=== PATIENT | male | born 1955 | race Caucasian/White ===

== ENCOUNTER 2017-09-21 13:07 | Emergency (ER) | payer MEDICARE, SELFPAY ==
[2017-09-21 13:08] VITALS: BP 144/89; PULSE 86; RESP 20; TEMP 36.6; O2SAT 99; BMI 31.5
[2017-09-21 13:35] LABS: Microscopic, Urine URINE MICROSCOPIC (MICROSCOPIC)
[2017-09-21 13:47] LABS: Basophils # 0.1 K/mm3 (0-0.2); Basophils % 0.5 % (0.1-2.0); Eosinophils # 0.1 K/mm3 (0.0-0.4); Eosinophils % 1.2 % (0.1-12.0); Hematocrit 46.7 % (42.0-52.0); Hemoglobin 15.3 g/dL (14.1-18.0); Lymphocytes % 10.1 K/mm3 (10-50); Mean Corpuscular HGB Conc 32.7 g/dL (31.8-35.4); Mean Corpuscular Hemoglobin 31.4 pg (27.0-31.2); Mean Corpuscular Volume 95.9 fl (80-94); Mean Platelet Volume 7.7 fl (7.4-10.4); Monocytes # 0.5 K/mm3 (0.1-1.0); Monocytes % 5.5 % (1.7-9.3); Neutrophils % 82.7 % (37.0-80.0); Platelet Count 271 K/mm3 (142-424); Red Blood Count 4.87 M/mm3 (4.60-6.20); Red Cell Distribution Width 13.6 % (11.5-17.5); White Blood Count 9.7 K/mm3 (4.8-10.8)
[2017-09-21 13:49] LABS: Alanine Aminotransferase 27 U/L (12-78); Albumin Level 4.1 gm/dL (3.4-5.0); Albumin/Globulin Ratio 1.1 (1.1-1.8); Alkaline Phosphatase 78 U/L (46-116); Amylase 29 U/L (25-125); Appearance,Urine CLEAR (Clear); Aspartate Amino Transferase 9 U/L (15-37); Bilirubin,Total 0.7 mg/dL (0.2-1.0); Bilirubin,Urine Negative (Negative); Blood Urea Nitrogen 22 mg/dL (7-18); Blood, Urine Negative (Negative); Carbon Dioxide 25 mmol/L (21.0-32.0); Chloride 100 mmol/L (98-107); Color,Urine YELLOW (Yellow); Creatinine Clearance Estimated 84 mL/min (0-300); Creatinine,Serum 1.32 mg/dL (0.70-1.30); Estimated Glomerular Filt Rate 55 ml/min (>60); GFR (African American) 67 ML/MIN (>60); Globulin 3.7 gm/dl (1.3-3.2); Glucose 106 mg/dL (74-106); Glucose,Urine (UA) Negative (Negative); Ketones,Urine Negative (Negative); Leukocyte Esterase,Urine Negative (Negative); Lipase 110 u/L (73-393); Nitrate,Urine Negative (Negative); PH,Urine 6.5 (5.0-8.5); Protein,Urine Negative (Negative); Sodium 136 mmol/L (136-145); Specific Gravity, Urine 1.015 (1.005-1.030); Total Protein,Serum 7.8 gm/dL (6.4-8.2); Urobilinogen,Urine 0.2 EU/dl (0.2)
--- NOTE | 2017-09-21 13:51 | HMH.EDGENADL ---
ED Disposition Clinical Impression: Right flank pain Disposition: Home, Self-Care Condition on Discharge: Fair Instructions: DI for Flank Pain Additional Instructions: See Jorge Michel or Dr. Gonzalez in the office tomorrow. Get your pain medication prescriptions filled tomorrow. additional instructions for BACK PAIN: See your physician as soon as possible for further evaluation. Return immediately if back pain becomes intolerable, or if fever, numbness or weakness of your legs, loss of control of your bowels or bladder. Additional instructions for ABDOMINAL PAIN: See your physician as soon as possible for further evaluation. Return immediately if worsening abdominal pain, vomiting, shortness of breath, fever, vomiting of blood or abdominal distention. Additional instructions for CONTROLLED SUBSTANCES: You have been prescribed a medication that is a controlled substance. Controlled substances include pain medications known as opiates and sedative nerve medications known as benzodiazepines. Some common opiates include: Codeine (such as Tylenol #3) Hydrocodone (Vicodin, Lortab, Lorcet, [place]) Oxycodone (Percocet, Percodan, Oxycodone, Oxy IR) Some common benzodiazepines include: Diazepam (Valium) Lorazepam (Ativan) Alprazolam (Xanax) Clonazepam (Klonopin) Oxazepam (Serax) All of these controlled substances are highly addictive and frequently abused. Misuse can and frequently does lead to addiction as well as overdose and . Medication should be stored in a locked cabinet or other secure storage unit. Do not store the medication in a motor vehicle. Short term supplies, 3 days or less, are prescribed because of the highly addictive nature of the medication. Any of the controlled substance medication NOT taken should be disposed of properly and NOT SAVED. The recommended method of disposing of unused medications is: Place the medicines in a sealable plastic bag. If the medicine is a solid, crush it or add water to dissolve it. Add something undesirable (cat litter, coffee grounds, etc.) Dispose of sealed bag in household trash Do not flush or pour unused medicines down a sink or drain. Controlled substances should not be shared, given away or sold. Because of the addictive nature and frequent abuse, these medications are sometimes stolen. These medications should be kept in a safe place where they cannot be stolen. Do not keep them in your car or purse. Lost or stolen prescriptions for controlled substances WILL NOT BE REFILLED in this emergency department, regardless of whether a police report was filed. Prescriptions: Oxycodone HCl/Acetaminophen [Percocet 5/325mg tablet] 1 tab PO Q6HP PRN #8 tab PRN Reason: Severe Pain Referrals: John Gonzalez MD [Primary Care Provider] - - Critical Care Critical Care Time: No Attestation: On 09/21/17, the high probability of a clinically significant, sudden or life threatening deterioration of the following system(s) required my full and direct attention, intervention and personal management. The time I documented below is in addition to time spent performing reported procedures but includes the following listed in this critical care notation. Medical Decision Making Vital Signs: 09/21/17 13:08 Temperature 97.9 F Temperature Source Oral Pulse Rate [Right Brachial] 86 Respiratory Rate 20 Blood Pressure [Right Radial Artery] 144/89 Blood Pressure Mean [Right Radial Artery] 107 Blood Pressure Source [Right Radial Artery] Automatic Cuff Blood Pressure Position [Right Radial Artery] Supine 02 Sat by Pulse Oximetry 99 Oxygen Delivery Method Room Air - Lab Data Lab Results 09/21/17 13:28: Urine Color Yellow, Urine Appearance Clear, Urine pH 6.5, Ur Specific [place] 1.015, Urine Protein Negative, Urine Glucose (UA) Negative, Urine Ketones Negative, Urine Blood Negative, Urine Nitrate Negative, Urine Bilirubin Negative, Urine Urobil
[2017-09-21 14:04] LABS: Bacteria,Urine Trace /lpf; WBC,Urine Occasional #/hpf (0-3)
--- NOTE | 2017-09-21 14:44 | CT_ITS ---
CT abdomen pelvis wo con CLINICAL INDICATION: Right lower quadrant pain and right flank pain ITS.REASON: R flank pain, r/o stone ORDERING PHYSICIAN: Kyle Faith MD PATIENT AGE: 62 years COMPARISON: January 07, 2017 TECHNIQUE: Axial images obtained with sagittal and coronal reformats. PROCEDURE: Oral Contrast: None IV Contrast: None . FINDINGS: Lung bases are clear. Liver, gallbladder, pancreas, and adrenal glands have an unremarkable unenhanced CT appearance. There is a 8.9 x 7 cm left renal cyst projecting off the anterior aspect of the left kidney. No obstructing renal or ureteral calculi. Unremarkable appendix. There is diverticulosis of the sigmoid colon with no evidence of diverticulitis. Nondistended fluid-filled loops of small bowel are present in the upper abdomen. There is a small umbilical hernia containing fat No acute bony anomalies. IMPRESSION: 1. No renal or ureteral calculi. Unremarkable appendix. 2. Diverticulosis without diverticulitis. 3. Multiple fluid-filled loops of small bowel are present which are not significantly distended and could be due to mild enteritis. 4. Other nonacute findings as described above
[2017-09-21 17:11] VITALS: BP 125/96; PULSE 89; RESP 18; TEMP 36.7; O2SAT 98
[2017-09-21 20:52] LABS: Amphetamine/Metha Screen,Urine Negative ng/mL (<1000); Barbiturates Screen,Urine Negative ng/mL (<200); Benzodiazepines Screen,Urine Positive ng/mL (200); Cannabinoid Screen,Urine Negative ng/mL (<50); Cocaine Screen,Urine Negative ng/g (<300); Methadone Screen,Urine Negative ng/mL (<300); Opiate Screen,Urine Positive ng/mL (<300); Phencyclidine Screen,Urine Negative ng/mL (<25)
== END 2017-09-21 17:11 | disposition home or self-care (01) ==
PROVIDERS: Emergency Provider Emergency Medicine; PCP Emergency Medicine
DX: R10.11 Right upper quadrant pain (principal); R10.31 Right lower quadrant pain; K57.51 Diverticulosis of both small and large intestine without perforation or abscess with bleeding; I10 Essential (primary) hypertension; F17.210 Nicotine dependence, cigarettes, uncomplicated; Z88.0 Allergy status to penicillin
CPT/HCPCS: 74176; 80053; 80305; 81001; 82150; 83690; 85025; 96374; 96375; 96376; 99283; J2405

== ENCOUNTER → 2017-10-14 09:54 | Outpatient (CLI) | payer MEDICARE, SELFPAY ==
--- NOTE | 2017-10-14 09:57 | CA_ITS ---
PROCEDURE: 2-D M-mode and color Doppler study INDICATIONS FOR THE TEST: Chest pain COPD Heart Murmur Tobacco Smoking+ Palpitations Fatigue Syncope Edema+ Hypertension+Diabetes Mellitus Rheumatic Fever SOB SANTO Obesity Hyperlipidemia+ Family History HD Additional History HX OF THYROID CA WITH CHEMO AND RADATION PATIENT INFORMATION HEIGHT: 70 WEIGHT:216 GENDER: Male B/P:132/82 2-D/M-MODE INTERPRETATION: 2-D MEASUREMENTS OBSERVED VALUES IN CMS Right Ventricular Dimension (RVDd) 2.6 Interventricular Septum (Thickness)(IVsd) 1.3 Left Ventricular Internal Dimensions(LVIDd) 4.2 Left Ventricular Posterior Wall (Thickness)(LVPWd) 1.1 Aortic Root 4.0 Aortic Cusp Separation 2.3 Left Atrial Dimensions (LAD) 3.4 2D 1. Left atrium is qualitatively mildly enlarged, left ventricle is normal size, there is mild concentric left ventricular hypertrophy, visually estimated ejection fraction 55% with no obvious regional wall motion abnormality. 2. The right atrium and ventricle are normal size and contractility. 3. The aortic valve is minimally thickened and fibrosed. 4. The mitral and tricuspid valve are grossly normal. 5. The pulmonic valve is poorly visualized. 6. No significant pericardial effusion noted DOPPLER INTERROGATION: Doppler interrogation of the aortic, mitral and tricuspid valvular presence of mild mitral and tricuspid regurgitation, tricuspid and enteric velocity insufficient for acquisition of the right ventricular systolic pressure, grade 1 diastolic dysfunction seen without tissue Doppler evidence of raised left atrial pressure. CONCLUSION: 1. Qualitatively mildly enlarged left atrium, normal left ventricular size, mild concentric left ventricular hypertrophy, visually estimated ejection fraction 55% with no obvious regional wall motion abnormality, grade 1 diastolic dysfunction seen without tissue Doppler evidence of raised left atrial pressure. 2. Mild mitral and tricuspid regurgitation 3. No significant pericardial effusion noted.
== END ==
PROVIDERS: PCP Emergency Medicine; Visit Provider Emergency Medicine
DX: R01.1 Cardiac murmur, unspecified (principal); R07.9 Chest pain, unspecified
CPT/HCPCS: 93306

== ENCOUNTER → 2017-10-31 10:55 | Outpatient (CLI) | payer MEDICARE, SELFPAY | PROVIDERS: PCP Emergency Medicine; Visit Provider Physical Medicine & Rehabilitation | DX: M47.812 Spondylosis without myelopathy or radiculopathy, cervical region (principal); M47.816 Spondylosis without myelopathy or radiculopathy, lumbar region ==

== ENCOUNTER → 2017-11-07 11:03 | Outpatient (POV) | payer MEDICARE, SELFPAY ==
--- NOTE | 2017-11-07 12:18 | XR_ITS ---
EXAM: XR lumbar spine 6V w bending HISTORY: Low back pain ITS.REASON: SPONDYLOSIS OF LUMBAR ORDERING PHYSICIAN: Farheen Humphries MD PATIENT AGE: 62 years FINDINGS: There is normal alignment. There is degenerative disc disease at T11-L3. Anterior osteophytes are present in the lower thoracic and mid and upper lumbar spine. No fracture or dislocation. No lytic or blastic change. Facet arthritic changes are present at L4-L5 and L5-S1. There is sclerosis of the upper aspect of the SI joints bilaterally. Flexion and extension views show no abnormal subluxation. IMPRESSION: 1. Multilevel lumbar spondylosis with degenerative disc disease and facet arthritic change as described above. 2. No abnormal subluxation in flexion or extension. 3. No fracture or dislocation
--- NOTE | 2017-11-07 12:18 | XR_ITS ---
XR cervical spine w flex/ext CLINICAL INDICATION: Neck pain ITS.REASON: CERVICAL SPONDYLOSIS ORDERING PHYSICIAN: Farheen Humphries MD PATIENT AGE: 62 years FINDINGS: Normal alignment. No fracture or dislocation. There is slight decrease in the disc space at C5-C6 and C6-C7. The neural foramina are patent. No evidence of cervical rib or significant degenerative change. Flexion and extension views are obtained with no significant subluxation in flexion or extension. No prevertebral soft tissue swelling. Multiple surgical clips are present about the neck. IMPRESSION: Minimal degenerative disc disease C5-C6 and C6-C7. No abnormal subluxation in flexion or extension
== END ==
PROVIDERS: PCP Emergency Medicine; Visit Provider Specialist
DX: G56.03 Carpal tunnel syndrome, bilateral upper limbs (principal)
CPT/HCPCS: 72052; 72114; 95886; 95910

== ENCOUNTER → 2017-11-29 10:36 | Outpatient (REF) | payer MEDICARE, SELFPAY ==
[2017-11-29 13:35] LABS: Alanine Aminotransferase 16 U/L (12-78); Albumin Level 4.3 gm/dL (3.4-5.0); Albumin/Globulin Ratio 1.6 (1.1-1.8); Alkaline Phosphatase 67 U/L (46-116); Anion Gap 8.7 mEq/L (5-15); Aspartate Amino Transferase 17 U/L (15-37); Bilirubin,Total 0.5 mg/dL (0.2-1.0); Blood Urea Nitrogen 21 mg/dL (7-18); C-Reactive Protein 1.5 mg/L (0.0-0.9); Calcium 9.4 mg/dL (8.5-10.1); Carbon Dioxide 33 mmol/L (21.0-32.0); Chloride 101 mmol/L (98-107); Creatinine,Serum 1.41 mg/dL (0.70-1.30); Estimated Glomerular Filt Rate 51 ml/min (>60); GFR (African American) 62 ML/MIN (>60); Globulin 2.7 gm/dl (1.3-3.2); Glucose 116 mg/dL (74-106); Potassium 4.7 mmoL/L (3.5-5.1); Sodium 138 mmol/L (136-145)
[2017-11-29 14:51] LABS: Erythrocyte Sedimentation Rate 31 mm/hr (0-20)
[2017-11-29 14:53] LABS: Basophils % 0.8 % (0.1-2.0); Eosinophils # 0.2 K/mm3 (0.0-0.4); Eosinophils % 4.1 % (0.1-12.0); Hematocrit 39.4 % (42.0-52.0); Hemoglobin 12.8 g/dL (14.1-18.0); Lymphocytes # 0.9 K/mm3 (0.7-4.5); Lymphocytes % 18.9 K/mm3 (10-50); Mean Corpuscular HGB Conc 32.6 g/dL (31.8-35.4); Mean Platelet Volume 8.9 fl (7.4-10.4); Monocytes # 0.3 K/mm3 (0.1-1.0); Monocytes % 5.9 % (1.7-9.3); Neutrophils # 3.2 K/mm3 (1.8-7.8); Neutrophils % 70.3 % (37.0-80.0); Platelet Count 158 K/mm3 (142-424); Red Blood Count 4.14 M/mm3 (4.60-6.20); Red Cell Distribution Width 13.3 % (11.5-17.5); White Blood Count 4.5 K/mm3 (4.8-10.8)
== END ==
LOC: LAB 10:36
PROVIDERS: Visit Provider Emergency Medicine
DX: Z79.899 Other long term (current) drug therapy (principal); I10 Essential (primary) hypertension; R10.9 Unspecified abdominal pain; R39.198 Other difficulties with micturition
CPT/HCPCS: 80053; 85025; 85651; 86140

== ENCOUNTER → 2018-04-04 15:44 | Outpatient (REF) | payer MEDICARE, SELFPAY ==
[2018-04-04 17:48] LABS: Basophils # 0.1 K/mm3 (0-0.2); Basophils % 0.9 % (0.1-2.0); Eosinophils # 0.1 K/mm3 (0.0-0.4); Eosinophils % 0.8 % (0.1-12.0); Hematocrit 44.8 % (42.0-52.0); Hemoglobin 14.7 g/dL (14.1-18.0); Lymphocytes % 19.5 K/mm3 (10-50); Mean Corpuscular HGB Conc 32.8 g/dL (31.8-35.4); Mean Corpuscular Hemoglobin 31.5 pg (27.0-31.2); Monocytes # 0.4 K/mm3 (0.1-1.0); Monocytes % 6.6 % (1.7-9.3); Neutrophils # 3.9 K/mm3 (1.8-7.8); Neutrophils % 72.2 % (37.0-80.0); Platelet Count 231 K/mm3 (142-424); Red Blood Count 4.66 M/mm3 (4.60-6.20); Red Cell Distribution Width 14.3 % (11.5-17.5); White Blood Count 5.4 K/mm3 (4.8-10.8)
[2018-04-04 19:03] LABS: Alanine Aminotransferase 19 U/L (12-78); Albumin Level 4.3 gm/dL (3.4-5.0); Albumin/Globulin Ratio 1.3 (1.1-1.8); Alkaline Phosphatase 83 U/L (46-116); Anion Gap 14.7 mEq/L (5-15); Bilirubin,Total 0.6 mg/dL (0.2-1.0); Blood Urea Nitrogen 21 mg/dL (7-18); Calcium 9.3 mg/dL (8.5-10.1); Carbon Dioxide 26 mmol/L (21.0-32.0); Chloride 106 mmol/L (98-107); Creatinine,Serum 1.02 mg/dL (0.70-1.30); Estimated Glomerular Filt Rate 74 ml/min (>60); Free T4 (Free Thyroxine) 0.93 ng/dl (0.76-1.46); GFR (African American) 90 ML/MIN (>60); Globulin 3.2 gm/dl (1.3-3.2); Glucose 99 mg/dL (74-106); Potassium 4.7 mmoL/L (3.5-5.1); Sodium 142 mmol/L (136-145); Thyroid Stimulating Hormone 3.63 uIU/ml (0.358-3.740); Total Protein,Serum 7.5 gm/dL (6.4-8.2)
[2018-04-04 19:04] LABS: Aspartate Amino Transferase 13 U/L (15-37)
[2018-04-04 19:08] LABS: Amphetamine/Metha Screen,Urine Negative ng/mL (<1000); Barbiturates Screen,Urine Negative ng/mL (<200); Benzodiazepines Screen,Urine Negative ng/mL (<200); Cannabinoid Screen,Urine Negative ng/mL (<50); Cocaine Screen,Urine Negative ng/mL (<300); Methadone Screen,Urine Negative ng/mL (<300); Opiate Screen,Urine Negative ng/mL (<300); Phencyclidine Screen,Urine Negative ng/mL (<25)
[2018-04-04 20:32] LABS: Chol/HDL Ratio 3.7 (1-3.5); Cholesterol 183 mg/dL (140-200); HDL Cholesterol 50 mg/dL (27-67); LDL Cholesterol 115 mg/dL (0-130); Triglycerides 90 mg/dL (30-200); VLDL Cholesterol 18 mg/dL (0-40)
== END ==
LOC: LAB 15:44
PROVIDERS: PCP Emergency Medicine; Visit Provider Emergency Medicine
DX: I10 Essential (primary) hypertension (principal); Z79.899 Other long term (current) drug therapy; E03.9 Hypothyroidism, unspecified; F17.210 Nicotine dependence, cigarettes, uncomplicated
CPT/HCPCS: 80053; 80061; 80305; 84439; 84443; 85025

== ENCOUNTER → 2019-02-06 17:29 | Outpatient (CLI) | payer MEDICARE, SELFPAY ==
[2019-02-06 18:46] LABS: Basophils # 0.1 K/mm3 (0-0.2); Basophils % 0.8 % (0.1-2.0); Eosinophils # 0.1 K/mm3 (0.0-0.4); Eosinophils % 1.9 % (0.1-12.0); Hematocrit 45.2 % (42.0-52.0); Hemoglobin 14.9 g/dL (14.1-18.0); Lymphocytes # 1.4 K/mm3 (0.7-4.5); Mean Corpuscular HGB Conc 32.9 g/dL (31.8-35.4); Mean Corpuscular Hemoglobin 30.8 pg (27.0-31.2); Mean Corpuscular Volume 93.5 fl (80-94); Mean Platelet Volume 8.3 fl (7.4-10.4); Monocytes # 0.4 K/mm3 (0.1-1.0); Monocytes % 6.3 % (1.7-9.3); Neutrophils # 4.6 K/mm3 (1.8-7.8); Platelet Count 227 K/mm3 (142-424); Red Blood Count 4.84 M/mm3 (4.60-6.20); Red Cell Distribution Width 14.3 % (11.5-17.5); White Blood Count 6.5 K/mm3 (4.8-10.8)
[2019-02-06 19:09] LABS: Alanine Aminotransferase 19 U/L (12-78); Albumin Level 4.4 gm/dL (3.4-5.0); Albumin/Globulin Ratio 1.3 (1.1-1.8); Alkaline Phosphatase 74 U/L (46-116); Anion Gap 15.2 mEq/L (5-15); Aspartate Amino Transferase 7 U/L (15-37); Bilirubin,Total 0.4 mg/dL (0.2-1.0); Blood Urea Nitrogen 27 mg/dL (7-18); Carbon Dioxide 26 mmol/L (21.0-32.0); Chloride 101 mmol/L (98-107); Chol/HDL Ratio 5.1 (1-3.5); Cholesterol 224 mg/dL (140-200); Creatinine,Serum 1.48 mg/dL (0.70-1.30); Estimated Glomerular Filt Rate 48 ml/min (>60); GFR (African American) 58 ML/MIN (>60); Globulin 3.4 gm/dl (1.3-3.2); Glucose 104 mg/dL (74-106); HDL Cholesterol 44 mg/dL (27-67); LDL Cholesterol 145 mg/dL (0-130); Potassium 4.2 mmoL/L (3.5-5.1); Sodium 138 mmol/L (136-145); T4 (Thyroxine) 4.4 ug/dl (4.7-13.3); Total Protein,Serum 7.8 gm/dL (6.4-8.2); Triglycerides 177 mg/dL (30-200); VLDL Cholesterol 35 mg/dL (0-40)
== END ==
PROVIDERS: Visit Provider Emergency Medicine
DX: I10 Essential (primary) hypertension (principal)
CPT/HCPCS: 80053; 80061; 84436; 84443; 85025

== ENCOUNTER 2019-02-06 19:44 | Observation (INO) ==
[2019-02-06 20:10] LABS: Basophils # 0.1 K/mm3 (0-0.2); Basophils % 0.7 % (0.1-2.0); Eosinophils # 0.1 K/mm3 (0.0-0.4); Eosinophils % 1.6 % (0.1-12.0); Hematocrit 43.9 % (42.0-52.0); Hemoglobin 14.1 g/dL (14.1-18.0); Lymphocytes # 1.2 K/mm3 (0.7-4.5); Lymphocytes % 19.4 % (10-50); Mean Corpuscular HGB Conc 32.1 g/dL (31.8-35.4); Mean Platelet Volume 7.9 fl (7.4-10.4); Monocytes # 0.3 K/mm3 (0.1-1.0); Monocytes % 5.2 % (1.7-9.3); Neutrophils # 4.5 K/mm3 (1.8-7.8); Neutrophils % 73.2 % (37.0-80.0); Platelet Count 215 K/mm3 (142-424); Red Blood Count 4.67 M/mm3 (4.60-6.20); Red Cell Distribution Width 14.2 % (11.5-17.5); White Blood Count 6.2 K/mm3 (4.8-10.8)
[2019-02-06 20:20] LABS: Anion Gap 12.6 mEq/L (5-15); Blood Urea Nitrogen 26 mg/dL (7-18); Calcium 9.4 mg/dL (8.5-10.1); Carbon Dioxide 28 mmol/L (21.0-32.0); Chloride 101 mmol/L (98-107); Glucose 108 mg/dL (74-106); Sodium 138 mmol/L (136-145)
[2019-02-06 20:21] LABS: Microscopic, Urine URINE MICROSCOPIC (MICROSCOPIC)
[2019-02-06 20:25] LABS: Appearance,Urine CLEAR (Clear); Bilirubin,Urine Negative (Negative); Blood, Urine Negative (Negative); Color,Urine YELLOW (Yellow); Glucose,Urine (UA) Negative (Negative); Ketones,Urine Negative (Negative); Leukocyte Esterase,Urine Negative (Negative); PH,Urine 6.5 (5.0-8.5); Protein,Urine Negative (Negative); Urobilinogen,Urine 0.2 EU/dl (0.2)
--- NOTE | 2019-02-06 20:31 | Emergency Department Note ---
ED Disposition Clinical Impression: Renal insufficiency, RBBB (right bundle branch block with left anterior fascicular block), Tobacco use, Obesity (BMI 30.0-34.9), Squamous cell carcinoma Chest pain Qualifiers: Chest pain type: precordial pain Qualified Code(s): R07.2 - Precordial pain Hypertension Qualifiers: Hypertension type: essential hypertension Qualified Code(s): I10 - Essential ( primary) hypertension Hypothyroidism Qualifiers: Hypothyroidism type: acquired Qualified Code(s): E03.9 - Hypothyroidism, u nspecified Disposition: Admitted as Observation Condition on Discharge: Good Referrals: John Gonzalez MD [Primary Care Provider] - - Critical Care Critical Care Time: No Attestation: On 02/06/19, the high probability of a clinically significant, sudden or life threatening deterioration of the following system(s) required my full and direct attention, intervention and personal management. The time I documented below is in addition to time spent performing reported procedures but includes the following listed in this critical care notation. Medical Decision Making - Medical Records Medical records reviewed: Yes: I reviewed the patient's medical records. - [place] Inquiry Pt receiving controlled substance: No Vital Signs: 02/06/19 19:49 02/06/19 19:50 02/06/19 20:04 Temperature 97.9 F 97.9 F Temperature Source Oral Oral Pulse Rate [Right Radial] 63 63 65 Respiratory Rate 18 18 18 Blood Pressure [Right Arm] 138/77 138/77 129/64 Blood Pressure Mean [Right Arm] 97 97 85 Blood Pressure Source [Right Arm] Automatic Cuff Blood Pressure Position [Right Arm] Supine 02 Sat by Pulse Oximetry 97 97 97 Oxygen Delivery Method Room Air - Lab Data Lab results reviewed: Yes: I reviewed the patient's lab results. Lab Results 02/06/19 19:40: WBC 6.2, RBC 4.67, Hgb 14.1, Hct 43.9, MCV 94.0, MCH 30.2, MCHC 32.1, RDW 14.2, Plt Count 215, MPV 7.9, Neut % (Auto) 73.2, Lymph % (Auto) 19.4, [place] % (Auto) 5.2, Eos % (Auto) 1.6, Baso % (Auto) 0.7, Neut # (Auto) 4.5, Lymph # (Auto) 1.2, [place] # (Auto) 0.3, Eos # (Auto) 0.1, Baso # (Auto) 0.1 02/06/19 19:40: Sodium 138, Potassium 3.6, Chloride 101, Carbon Dioxide 28, Anion Gap 12.6, BUN 26 H, Creatinine 1.49 H, Estimated Creat Clear 73, Estimated GFR 48 L, Est GFR ( Amer) 58 L, Glucose 108 H, Calcium 9.4, Troponin I < 0.02 02/06/19 20:15: Urine Color Yellow, Urine Appearance Clear, Urine pH 6.5, Ur Specific [place] 1.010, Urine Protein Negative, Urine Glucose (UA) Negative, Urine Ketones Negative, Urine Blood Negative, Urine Nitrate Negative, Urine Bilirubin Negative, Urine Urobilinogen 0.2, Ur Leukocyte Esterase Negative, Urine WBC Occasional, Urine Bacteria Trace Result diagrams: 02/06/19 19:40 02/06/19 19:40 Orders (Tests/Meds): ED MEDICATIONS Discontinued Medications Generic Name Dose Route Start Last Admin Trade Name Ale PRN Reason Stop Dose Admin Aspirin 324 mg 02/06/19 19:55 02/06/19 20:02 Aspirin 81mg Chewable Tablet PO 02/06/19 19:56 324 mg ONCE ONE Administration Nitroglycerin 0.4 mg 02/06/19 19:54 02/06/19 20:01 Nitrostat 0.4mg Sl Tablet SL 02/06/19 19:55 0.4 mg ONCE ONE Administration Nitroglycerin 1 gm 02/06/19 20:43 02/06/19 20:44 Nitroglycerin 1 Inch Oint Udp TD 02/06/19 20:44 1 gm ONCE ONE Administration Ondansetron HCl 4 mg 02/06/19 20:10 02/06/19 20:16 Zofran 4mg/2ml Vial IV 02/06/19 20:11 4 mg ONCE ONE Administration ORDERS Category Date Time Status XR chest 2V Stat Exams 02/06/19 19:54 Taken - Radiology Data #1 Image(s): Chest Image Reviewed: Yes I reviewed the patient's radiology image Preliminary Findings: Normal/NAD - ECG Data Tracing #1 Normal Sinus Rhythm: Yes Ischemic changes: non-specific ST-T wave changes Conduction abnormalities present: RBBB Chest Pain HPI - General Chief Complaint: Chest Pain Stated Complaint: chest pain Time Seen by Provider: 02/06/19 20:00 Mode of Arrival: Ambulatory Source of Information: Patient, Significant Other, Medical Record Limitations: No Limitations Description of Symptoms (Recalled from ER Triage Doc. by RN): pt states he seen his doctor today and his bp was high. pt states that they gave him his meds and he took his lisinopril and he then started feeling bad. pt states that he began having chest pains and that is "shoots" into his arms. - History of Present Illness HPI narrative: pt with acute onset of ant chest pain which was felt as pressure with rad to upper ext and felt confused - has hx of tob and htn MD complaint: chest pain indicative of cardiac Onset (ago): hour(s) Duration: now resolved Activity at onset: during rest Pain location: left chest Severity: moderate Quality: heaviness Pain radiation: RUE, LUE Associated symptoms: nausea Risk Factors for CAD: Hypertension, Family Hx of CAD, Smoking Treatments prior to or on arrival for Cardiac Chest Pain: none - NITA Score for Non-Stemi Age of Patient: 60-69 years old Heart Rate: 50-69 bpm Systolic Blood Pressure: 120-139 mmhg Serum Creatinine: 1.20-1.59 mg/dl CHF [place] Class: I-No CHF Other Risk Factors: None Non-Stemi Risk Score: 105 - Related Data Home Medications Medication Instructions Recorded Confirmed Gabapentin [Gabapentin 400mg Cap] 400 mg PO TID 02/06/19 02/06/19 Previous Rx's Medication Instructions Recorded levothyroxine 50 mcg capsule 50 mcg PO DAILY #90 cap 02/06/19 lisinopril 10 mg tablet 10 mg PO DAILY #90 tab 02/06/19 Allergies Allergy/AdvReac Type Severity Reaction Status Date / Time Penicillins [PENICILLINS] Allergy Unknown Verified 02/06/19 14:55 [facility] History - Hepatitis A Screen Drug use history?: No High risk sexual behaviors?: No History of sexually transmitted infection?: No Currently employed?: No Childcare worker?: No Do you have indoor plumbing?: No Do you have electricity?: Yes Attestation statement:: This patient has been screened for Hepatitis A risk factors. I have reviewed the patient's past medical history: Yes Medical History: Reports:: Cancer, Hyperlipidemia, Hypertension Denies:: Diabetes Mellitus Type 1, Diabetes Mellitus Type 2, MRSA, Renal Disease Other Medical History: Reports: Hypothyroidism Other Surgeries: Yes: Cancer Surgery, Colonoscopy Amputation: No Fractures: No - Social History Smoking Status: Current every day smoker Tobacco Type: cigarettes # Packs/Day (cigarettes): 1 Alcohol Intake: never Substance Use Type: denies use Occupational Status: disabled Housing: house Household Members: friend(s) Family Hx:: Cancer, Coronary Artery Disease ROS Obtained: Yes All systems reviewed & no additional complaints - Constitutional Constitutional: Denies fever(s) - Eyes Eyes: Denies change in vision - ENT Ears, Nose, Mouth, and Throat: Denies sore throat - Cardiovascular Cardiovascular: Reports chest pain, Denies dyspnea - Respiratory Respiratory: No cough - Gastrointestinal Gastrointestingal: Denies: abdominal pain - Genitourinary Male Genitourinary: Denies flank pain - Musculoskeletal Musculoskeletal: Denies joint pain, Denies joint swelling - Integumentary/Breasts Skin/Breast: Denies rash - Neurologic Neurologic: Denies seizure-like activity Physical Exam - General General appearance: alert, in no apparent distress - Head Head exam: normocephalic - Eye Eye exam: Present: PERRL, EOMI. Absent: scleral icterus - ENT ENT exam: Present: mucous membranes dry - Neck Neck exam: Present: trachea midline - Respiratory Respiratory exam: Present: normal lung sounds bilaterally. Absent: respiratory distress - Cardiovascular Cardiovascular exam: Present: regular rate, systolic murmur, +S4 - Abdominal Exam Abdominal exam: Present: soft - Extremities Exam Extremities exam: Absent: calf tenderness - Neurological Exam Neurological exam: Present: alert, oriented X3, CN II-XII intact - Psychiatric Psychiatric exam: Present: normal affect - Skin Skin exam: Absent: rash
[2019-02-06 20:34] LABS: Bacteria,Urine Trace /lpf; WBC,Urine Occasional #/hpf (0-3)
--- NOTE | 2019-02-06 22:48 | History & Physical Report ---
*Admission Date: 02/06/19 *Chief complaint: chest pain *History of present illness: this wm presented to the ed with acute onset ot ant chest pain described as pressure which started at rest with rad to bilat upper ext - has tob use and htn - pt reports pain is new - pt was seen in the ed and admitted for cardiac eval [facility] History I have reviewed the patient's past medical history: Yes Medical History: Reports:: Cancer, Hyperlipidemia, Hypertension Denies:: Diabetes Mellitus Type 1, Diabetes Mellitus Type 2, MRSA, Renal Disease *Have you ever received a pneumonia vaccine?: No *Have you received a flu vaccine this season?: Yes Other Medical History: Reports: Hypothyroidism Laterality Cases: Right: Arthroscopy Shoulder, Bilateral: Arthroscopy Knee Other Surgeries: Yes: Cancer Surgery, Colonoscopy Amputation: No Fractures: No - *Social History Educational Level: Attended College Smoking Status: Current every day smoker Tobacco Type: cigarettes # Packs/Day (cigarettes): 1 Alcohol Intake: never Substance Use Type: denies use *Occupational Status:: disabled Housing: house Household Members: significant other *Travel in the last 8 weeks: None - Psychiatric History Expresses thoughts of harming self/others: None Suicide Plan Description: No Plan Family Hx:: Cancer Review of Systems - Review of Systems Review of systems:: pertinent systems reviewed and negative unless documented below - Constitutional Denies fever(s) - Eyes Denies change in vision - ENT Denies dizziness - *Cardiovascular Reports chest pain at rest - *Respiratory Denies cough - *Gastrointestinal Denies abdominal pain, Denies coffee ground vomit - *Musculoskeletal Denies joint pain - Integumentary/Breasts Denies rash - *Neurologic Denies confusion, Denies seizure-like activity - Psychiatric Denies anxiety Meds Home Medications Medication Instructions Recorded Confirmed Type Gabapentin [Gabapentin 400mg Cap] 400 mg PO TID 02/06/19 02/06/19 History levothyroxine 50 mcg capsule 50 mcg PO DAILY #90 cap 02/06/19 02/06/19 Rx lisinopril 10 mg tablet 10 mg PO DAILY #90 tab 02/06/19 02/06/19 Rx Allergies Allergy/AdvReac Type Severity Reaction Status Date / Time Penicillins [PENICILLINS] Allergy Unknown Verified 02/06/19 14:55 Exam Vital signs and Labs for Last 24 Hours: Temp Pulse Resp BP Pulse Ox 98.7 F 58 L 22 136/67 98 07/23/19 21:33 02/06/19 21:33 02/06/19 21:33 02/06/19 21:33 02/06/19 21:33 Laboratory Results - last 24 hr 02/06/19 19:40: WBC 6.2, RBC 4.67, Hgb 14.1, Hct 43.9, MCV 94.0, MCH 30.2, MCHC 32.1, RDW 14.2, Plt Count 215, MPV 7.9, Neut % (Auto) 73.2, Lymph % (Auto) 19.4, [place] % (Auto) 5.2, Eos % (Auto) 1.6, Baso % (Auto) 0.7, Neut # (Auto) 4.5, Lymph # (Auto) 1.2, [place] # (Auto) 0.3, Eos # (Auto) 0.1, Baso # (Auto) 0.1 02/06/19 19:40: Sodium 138, Potassium 3.6, Chloride 101, Carbon Dioxide 28, Anion Gap 12.6, BUN 26 H, Creatinine 1.49 H, Estimated Creat Clear 73, Estimated GFR 48 L, Est GFR ( Amer) 58 L, Glucose 108 H, Calcium 9.4, Troponin I < 0.02 02/06/19 20:15: Urine Color Yellow, Urine Appearance Clear, Urine pH 6.5, Ur Specific [place] 1.010, Urine Protein Negative, Urine Glucose (UA) Negative, Urine Ketones Negative, Urine Blood Negative, Urine Nitrate Negative, Urine Bilirubin Negative, Urine Urobilinogen 0.2, Ur Leukocyte Esterase Negative, Urine WBC Occasional, Urine Bacteria Trace I & O for Last 24 hours: Intake & Output 02/04/19 02/05/19 02/06/19 02/07/19 11:59 11:59 11:59 11:59 Weight 225 lb 5 oz - Constitutional no acute distress, obese - *Routine HEENT Exam Head: Present: normocephalic Eye: Present: EOMI, PERRL ENT: Present: mucous membranes dry - *Routine Neck Exam Absent: JVD - *Routine Respiratory Exam Present: CTA bilaterally - *Routine Cardiovascular Exam Present: RRR, murmur - *Routine Abdominal Exam Present: soft. Absent: tenderness - *Routine Extremities Exam Present: pulses intact - *Routine Skin Exam Present: intact - *Routine Neurological Exam Present: alert, oriented X3, CN II-XII intact - Routine Psychiatric Exam Present: normal affect Assessment and Plan (1) Chest pain Current visit: Yes Status: Acute Qualifiers: Chest pain type: precordial pain Qualified Code(s): R07.2 - Precordial pain Category: Medical Code(s): R07.9 - Chest pain, unspecified (2) RBBB (right bundle branch block with left anterior fascicular block) Current visit: Yes Status: Acute Category: Medical Code(s): I45.2 - Bifascicular block (3) Tobacco use Current visit: Yes Status: Acute Category: Medical Code(s): Z72.0 - Tobacco use (4) Obesity (BMI 30.0-34.9) Current visit: Yes Status: Acute Category: Medical Code(s): E66.9 - Obesity, unspecified (5) Squamous cell carcinoma Current visit: Yes Status: Acute Category: Medical (6) Hypothyroid Current visit: Yes Status: Acute Qualifiers: Hypothyroidism type: acquired Qualified Code(s): E03.9 - Hypothyroidism, unspecified Category: Medical Code(s): E03.9 - Hypothyroidism, unspecified (7) Hypertension Current visit: Yes Status: Acute Qualifiers: Hypertension type: essential hypertension Qualified Code(s): I10 - Essential (primary) hypertension Category: Medical Code(s): I10 - Essential (primary) hypertension
[2019-02-07 07:12] LABS: Basophils % 0.7 % (0.1-2.0); Eosinophils # 0.1 K/mm3 (0.0-0.4); Hematocrit 41.3 % (42.0-52.0); Hemoglobin 13.4 g/dL (14.1-18.0); Lymphocytes # 1.3 K/mm3 (0.7-4.5); Lymphocytes % 22.9 % (10-50); Mean Corpuscular HGB Conc 32.4 g/dL (31.8-35.4); Mean Corpuscular Volume 94.9 fl (80-94); Mean Platelet Volume 7.9 fl (7.4-10.4); Monocytes # 0.4 K/mm3 (0.1-1.0); Monocytes % 7.7 % (1.7-9.3); Neutrophils # 3.8 K/mm3 (1.8-7.8); Neutrophils % 66.8 % (37.0-80.0); Platelet Count 201 K/mm3 (142-424); Red Blood Count 4.35 M/mm3 (4.60-6.20); Red Cell Distribution Width 14.5 % (11.5-17.5); White Blood Count 5.7 K/mm3 (4.8-10.8)
[2019-02-07 07:14] LABS: Anion Gap 9.8 mEq/L (5-15); Calcium 9.1 mg/dL (8.5-10.1); Chol/HDL Ratio 5.1 (1-3.5)
--- NOTE | 2019-02-07 07:37 | Pharmacy Consult Notes ---
[facility] Pharmacy VTE Monitoring - Patient Demographics Admission date: 02/06/19 Report Date: 02/07/19 Time: 07:36 Allergies/Adverse Reactions: Patient Allergies Penicillins [PENICILLINS] Allergy (Unknown, Verified 02/06/19 14:55) Height: 1.78 m Weight: 103.051 kg Patient Problems: Current Active Problems (Updated 02/06/19 @ 20:51 by John Gonzalez MD) Chest pain (Acute) RBBB (right bundle branch block with left anterior fascicular block) (Acute) Tobacco use (Acute) Obesity (BMI 30.0-34.9) (Acute) Squamous cell carcinoma (Acute) Renal insufficiency (Acute) Hypothyroidism (Chronic) Hypertension (Chronic) - VTE Risk Labs: VTE Related Lab Results Hgb 13.4 g/dL (14.1-18.0) L 02/07/19 06:07 Hct 41.3 % (42.0-52.0) L 02/07/19 06:07 Plt Count 201 K/mm3 (142-424) 02/07/19 06:07 BUN 26 mg/dL (7-18) H 02/07/19 06:07 Creatinine 1.57 mg/dL (0.70-1.30) H 02/07/19 06:07 Estimated Creat Clear 71 mL/min (50-200) 02/07/19 06:07 Was VTE Risk Assessment Performed: Yes VTE Score: 3 VTE Risk Level: Low Risk - Prophylaxis VTE Prophylaxis Ordered?: Yes Types of VTE Prophylaxis: TEDS Knee High Location of Applied Device: Bilateral Lower Extremeties - VTE Diagnosis Confirmed Treatment or plan recommended: Continue Current Treatment
--- NOTE | 2019-02-07 07:45 | Consult Report ---
History of Present Illness Consult date: 02/07/19 Requesting physician: John Gonzalez Consult reason: chest pain Chief complaint: chest pain Additional Medical History:: 1. HTN A. Echo, 09/2017, 2D 1. Left atrium is qualitatively mildly enlarged, left ventricle is normal size, there is mild concentric left ventricular hypertrophy, visually estimated ejection fraction 55% with no obvious regional wall motion abnormality. 2. The right atrium and ventricle are normal size and contractility. 3. The aortic valve is minimally thickened and fibrosed. 4. The mitral and tricuspid valve are grossly normal. 5. The pulmonic valve is poorly visualized. 6. No significant pericardial effusion noted DOPPLER INTERROGATION: Doppler interrogation of the aortic, mitral and tricuspid valvular presence of mild mitral and tricuspid regurgitation, tricuspid and enteric velocity insufficient for acquisition of the right ventricular systolic pressure, grade 1 diastolic dysfunction seen without tissue Doppler evidence of raised lef t atrial pressure. CONCLUSION: 1. Qualitatively mildly enlarged left atrium, normal left ventricular size, mild concentric left ventricular hypertrophy, visually estimated ejection fraction 55% with no obvious regional wall motion abnormality, grade 1 diastolic dysfunction seen without tissue Doppler evidence of raised left atrial pressure. 2. Mild mitral and tricuspid regurgitation 3. No significant pericardial effusion noted 2. Abnormal EKG, RBBB (previous EKG 's with IVCD dating back to 2012) 3. Right neck cancer with radical resection, chemo and radiation, [address] [facility] A. Yearly follow up 4. Tobacco use, 10 yrs 5. Hypothyroidism, on replacement 6. CKD, stage 2 with Cr 1.4 and GFR 48 7. Chronic pain with bilateral upper extremity discomfort History of present illness: 64-year-old white male with history of hypertension, tobacco use and right neck cancer status post surgical resection, chemotherapy and radiation approximate 12 years ago presented to the [facility] emergency department for evaluation of chest pain, confusion and dizziness. Patient states he has been out of his blood pressure medication for several months with intermittent headaches and blurred vision. He did go to his PCPs office yesterday with blood pressure noted to be greater than 180/100 and was given a sublingual dose of clonidine. He did get his blood pressure medication refilled and also took a dose of that yesterday with resultant confusion and dizziness. He related some heavy chest pressure sensation along with palpitations and was admitted for further evaluation. Troponins overnight have been negative. EKG is sinus with right bundle branch block with previous EKG's noted to have IVCD pattern back to 2012. Patient was given nitroglycerin paste overnight with no recurrent chest discomfort but with noted headache and BP of 90/58 mm Hg this AM. NTG paste was discontinued at that time. Cardiology consulted for evaluation and recommendations. [facility] History Medical History: Reports:: Cancer, Hyperlipidemia, Hypertension Denies:: Diabetes Mellitus Type 1, Diabetes Mellitus Type 2, MRSA, Renal Disease *Have you ever received a pneumonia vaccine?: No *Have you received a flu vaccine this season?: Yes Other Medical History: Reports: Hypothyroidism Laterality Cases: Right: Arthroscopy Shoulder, Bilateral: Arthroscopy Knee Other Surgeries: Yes: Cancer Surgery, Colonoscopy Amputation: No Fractures: No - *Social History Educational Level: Attended College Smoking Status: Current every day smoker Tobacco Type: cigarettes # Packs/Day (cigarettes): 1 Alcohol Intake: never Substance Use Type: denies use *Occupational Status:: disabled Housing: house Household Members: significant other *Travel in the last 8 weeks: None - Psychiatric History Expresses thoughts of harming self/others: None Suicide Plan Description: No Plan Family Hx:: Cancer Meds Home Medications Medication Instructions Recorded Confirmed Type Gabapentin [Gabapentin 400mg Cap] 400 mg PO TID 02/06/19 02/06/19 History levothyroxine 50 mcg capsule 50 mcg PO DAILY #90 cap 02/06/19 02/06/19 Rx lisinopril 10 mg tablet 10 mg PO DAILY #90 tab 02/06/19 02/06/19 Rx Allergies Allergy/AdvReac Type Severity Reaction Status Date / Time Penicillins [PENICILLINS] Allergy Unknown Verified 02/06/19 14:55 Review of Systems - *Cardiovascular Reports chest pain, Reports rapid, pounding, or irregular heartbeat - *Respiratory Reports cough, Reports shortness of breath with activity - *Gastrointestinal Denies abdominal pain, Denies nausea, Denies vomiting - *Genitourinary Denies blood in semen, Denies blood in urine - *Musculoskeletal Reports joint pain, Reports back pain - *Neurologic Denies seizure-like activity Exam Vital signs and Labs for Last 24 Hours: Temp Pulse Resp BP Pulse Ox 98.4 F 51 L 18 90/58 L 98 02/07/19 04:00 02/07/19 04:00 02/07/19 04:00 02/07/19 04:00 02/07/19 04:00 Laboratory Results - last 24 hr 02/06/19 19:40: WBC 6.2, RBC 4.67, Hgb 14.1, Hct 43.9, MCV 94.0, MCH 30.2, MCHC 32.1, RDW 14.2, Plt Count 215, MPV 7.9, Neut % (Auto) 73.2, Lymph % (Auto) 19.4, [place] % (Auto) 5.2, Eos % (Auto) 1.6, Baso % (Auto) 0.7, Neut # (Auto) 4.5, Lymph # (Auto) 1.2, Potter # (Auto) 0.3, Eos # (Auto) 0.1, Baso # (Auto) 0.1 02/06/19 19:40: Sodium 138, Potassium 3.6, Chloride 101, Carbon Dioxide 28, Anion Gap 12.6, BUN 26 H, Creatinine 1.49 H, Estimated Creat Clear 73, Estimated GFR 48 L, Est GFR ( Amer) 58 L, Glucose 108 H, Calcium 9.4, Troponin I < 0.02 02/06/19 20:15: Urine Color Yellow, Urine Appearance Clear, Urine pH 6.5, Ur Specific [place] 1.010, Urine Protein Negative, Urine Glucose (UA) Negative, Uri ne Ketones Negative, Urine Blood Negative, Urine Nitrate Negative, Urine Bilirubin Negative, Urine Urobilinogen 0.2, Ur Leukocyte Esterase Negative, Urine WBC Occasional, Urine Bacteria Trace 02/06/19 23:40: Troponin I < 0.02 02/07/19 02:50: Troponin I < 0.02 02/07/19 06:07: WBC 5.7, RBC 4.35 L, Hgb 13.4 L, Hct 41.3 L, MCV 94.9 H, MCH 30.7, MCHC 32.4, RDW 14.5, Plt Count 201, MPV 7.9, Neut % (Auto) 66.8, Lymph % (Auto) 22.9, Potter % (Auto) 7.7, Eos % (Auto) 2.0, Baso % (Auto) 0.7, Neut # (Auto) 3.8, Lymph # (Auto) 1.3, Potter # (Auto) 0.4, Eos # (Auto) 0.1, Baso # (Auto) 0.0 02/07/19 06:07: Sodium 139, Potassium 3.8, Chloride 104, Carbon Dioxide 29, Anion Gap 9.8, BUN 26 H, Creatinine 1.57 H, Estimated Creat Clear 71, Estimated GFR 45 L, Est GFR ( Amer) 54 L, Glucose 108 H, Calcium 9.1, Magnesium 2.2, Triglycerides 171, Cholesterol 183, LDL Cholesterol 113, VLDL Cholesterol 34, HDL Cholesterol 36, Cholesterol/HDL Ratio 5.1 H I & O for Last 24 hours: Intake & Output 02/04/19 02/05/19 02/06/19 02/07/19 11:59 11:59 11:59 11:59 Intake Total 648 / 648 Balance 648 / 648 Weight 227 lb 3 oz - *Routine HEENT Exam Head: Present: normocephalic Eye: Present: EOMI, PERRL ENT: Present: mucous membranes moist - *Routine Neck Exam Present: supple. Absent: JVD, carotid bruit Comments: right sided neck disfigurement due to surgery - *Routine Respiratory Exam Present: CTA bilaterally. Absent: accessory muscle use, rales, rhonchi, wheezes - *Routine Cardiovascular Exam Present: RRR. Absent: murmur, gallop, rubs - *Routine Abdominal Exam Present: soft. Absent: tenderness, distended, guarding - *Routine Extremities Exam Absent: edema, calf tenderness - *Routine Skin Exam Present: warm. Absent: cyanosis - *Routine Neurological Exam Present: alert, oriented X3, moving all extremities Assessment and Plan (1) Chest pain Current visit: Yes Status: Acute Qualifiers: Chest pain type: precordial pain Qualified Code(s): R07.2 - Precordial pain Category: Medical Code(s): R07.9 - Chest pain, unspecified (2) Obesity (BMI 30.0-34.9) Current visit: Yes Status: Acute Category: Medical Code(s): E66.9 - Obesity, unspecified (3) RBBB (right bundle branch block with left anterior fascicular block) Current visit: Yes Status: Acute Category: Medical Code(s): I45.2 - Bifascicular block (4) Renal insufficiency Current visit: Yes Status: Acute Category: Medical Code(s): N28.9 - Disorder of kidney and ureter, unspecified (5) Tobacco use Current visit: Yes Status: Acute Category: Medical Code(s): Z72.0 - Tobacco use (6) Hypertension Current visit: Yes Status: Chronic Qualifiers: Hypertension type: essential hypertension Qualified Code(s): I10 - Essential (primary) hypertension Category: Medical Code(s): I10 - Essential (primary) hypertension - Assessment and plan all Dx Assessment and Plan for all problems:: 1. Chest pain with normal troponins and RBBB on EKG (previous EKG's with IVCD noted back to 2012). Recommend [email or web address] myoview today with further recommendations to follow. 2. Echo today to assess LV size, function and valve status 3. Switch lisinopril to losartan 50 mg daily, when BP improves, due to cough. Will avoid beta dayana or CCB at this time due to bradycardia intermittently overnight.
--- NOTE | 2019-02-07 13:33 | Discharge Summary ---
General - General Admission date:: 02/06/19 Discharge date: 02/07/19 HPI HPI: this wm presented to the ed with acute onset ot ant chest pain described as pressure which started at rest with rad to bilat upper ext - has tob use and htn - pt reports pain is new - pt was seen in the ed and admitted for cardiac eval Hospital Course Hospital Course: pt with stable sx in the hospital and no ectopy and had echo ok and card enz ok- he was seen by cherry Lin Echo, 09/2017, 2D 1. Left atrium is qualitatively mildly enlarged, left ventricle is normal size, there is mild concentric left ventricular hypertrophy, visually estimated ejection fraction 55% with no obvious regional wall motion abnormality. 2. The right atrium and ventricle are normal size and contractility. 3. The aortic valve is minimally thickened and fibrosed. 4. The mitral and tricuspid valve are grossly normal. 5. The pulmonic valve is poorly visualized. 6. No significant pericardial effusion noted DOPPLER INTERROGATION: Doppler interrogation of the aortic, mitral and tricuspid valvular presence of mild mitral and tricuspid regurgitation, tricuspid and enteric velocity insufficient for acquisition of the right ventricular systolic pressure, grade 1 diastolic dysfunction seen without tissue Doppler evidence of raised left atrial pressure. CONCLUSION: 1. Qualitatively mildly enlarged left atrium, normal left ventricular size, mild concentric left ventricular hypertrophy, visually estimated ejection fraction 55% with no obvious regional wall motion abnormality, grade 1 diastolic dysfunction seen without tissue Doppler evidence of raised left atrial pressure. 2. Mild mitral and tricuspid regurgitation 3. No significant pericardial effusion noted 2. Abnormal EKG, RBBB (previous EKG 's with IVCD dating back to 2012) 3. Right neck cancer with radical resection, chemo and radiation, [address] [facility] A. Yearly follow up 4. Tobacco use, 10 yrs 5. Hypothyroidism, on replacement 6. CKD, stage 2 with Cr 1.4 and GFR 48 7. Chronic pain with bilateral upper extremity discomfort History of present illness: 64-year-old white male with history of hypertension, tobacco use and right neck cancer status post surgical resection, chemotherapy and radiation approximate 12 years ago presented to the [facility] emergency department for evaluation of chest pain, confusion and dizziness. Patient states he has been out of his blood pressure medication for several months with intermittent headaches and blurred vision. He did go to his PCPs office yesterday with blood pressure noted to be greater than 180/100 and was given a sublingual dose of clonidine. He did get his blood pressure medication refilled and also took a dose of that yesterday with resultant confusion and dizziness. He related some heavy chest pressure sensation along with palpitations and was admitted for further evaluation. Troponins overnight have been negative. EKG is sinus with right bundle branch block with previous EKG's noted to have IVCD pattern back to 2012. Patient was given nitroglycerin paste overnight with no recurrent chest discomfort but with noted headache and BP of 90/58 mm Hg this AM. NTG paste was discontinued at that time. Cardiology consulted for evaluation and recommendations. pt had stress test which was ok and will be d/c to follow up with card and pcp - will change lisinopril to losartsan sec to renal issues Objective Vital signs: Temp Pulse Resp BP Pulse Ox 97.6 F 60 18 144/89 H 98 02/07/19 11:27 02/07/19 12:00 02/07/19 11:27 02/07/19 11:27 02/07/19 11:27 no acute distress, obese - *Routine HEENT Exam Head: Present: normocephalic Eye: Present: EOMI, PERRL ENT: Present: mucous membranes dry - *Routine Neck Exam Present: supple - *Routine Respiratory Exam Absent: respiratory distress - *Routine Cardiovascular Exam Present: RRR, murmur - *Routine Abdominal Exam Present: soft - *Routine Extremities Exam Present: full ROM - *Routine Skin Exam Present: intact - *Routine Neurological Exam Present: alert, oriented X3, CN II-XII intact - Routine Psychiatric Exam Present: normal affect Results Labs on day of discharge: Labs from last 24 hours 02/07/19 02/07/19 02/07/19 06:07 06:07 02:50 WBC 5.7 RBC 4.35 L Hgb 13.4 L Hct 41.3 L MCV 94.9 H MCH 30.7 MCHC 32.4 RDW 14.5 Plt Count 201 MPV 7.9 Neut % (Auto) 66.8 Lymph % (Auto) 22.9 [place] % (Auto) 7.7 Eos % (Auto) 2.0 Baso % (Auto) 0.7 Neut # (Auto) 3.8 Lymph # (Auto) 1.3 [place] # (Auto) 0.4 Eos # (Auto) 0.1 Baso # (Auto) 0.0 Sodium 139 Potassium 3.8 Chloride 104 Carbon Dioxide 29 Anion Gap 9.8 BUN 26 H Creatinine 1.57 H Estimated Creat Clear 71 Estimated GFR 45 L Est GFR ( Amer) 54 L Glucose 108 H Calcium 9.1 Magnesium 2.2 Troponin I < 0.02 Triglycerides 171 Cholesterol 183 LDL Cholesterol 113 VLDL Cholesterol 34 HDL Cholesterol 36 Cholesterol/HDL Ratio 5.1 H Urine Color Urine Appearance Urine pH Ur Specific [place] Urine Protein Urine Glucose (UA) Urine Ketones Urine Blood Urine Nitrate Urine Bilirubin Urine Urobilinogen Ur Leukocyte Esterase Urine WBC Urine Bacteria 02/06/19 02/06/19 02/06/19 23:40 20:15 19:40 WBC RBC Hgb Hct MCV MCH MCHC RDW Plt Count MPV Neut % (Auto) Lymph % (Auto) [place] % (Auto) Eos % (Auto) Baso % (Auto) Neut # (Auto) Lymph # (Auto) [place] # (Auto) Eos # (Auto) Baso # (Auto) Sodium 138 Potassium 3.6 Chloride 101 Carbon Dioxide 28 Anion Gap 12.6 BUN 26 H Creatinine 1.49 H Estimated Creat Clear 73 Estimated GFR 48 L Est GFR ( Amer) 58 L Glucose 108 H Calcium 9.4 Magnesium Troponin I < 0.02 < 0.02 Triglycerides Cholesterol LDL Cholesterol VLDL Cholesterol HDL Cholesterol Cholesterol/HDL Ratio Urine Color Yellow Urine Appearance Clear Urine pH 6.5 Ur Specific [place] 1.010 Urine Protein Negative Urine Glucose (UA) Negative Urine Ketones Negative Urine Blood Negative Urine Nitrate Negative Urine Bilirubin Negative Urine Urobilinogen 0.2 Ur Leukocyte Esterase Negative Urine WBC Occasional Urine Bacteria Trace 02/06/19 19:40 WBC 6.2 RBC 4.67 Hgb 14.1 Hct 43.9 MCV 94.0 MCH 30.2 MCHC 32.1 RDW 14.2 Plt Count 215 MPV 7.9 Neut % (Auto) 73.2 Lymph % (Auto) 19.4 [place] % (Auto) 5.2 Eos % (Auto) 1.6 Baso % (Auto) 0.7 Neut # (Auto) 4.5 Lymph # (Auto) 1.2 [place] # (Auto) 0.3 Eos # (Auto) 0.1 Baso # (Auto) 0.1 Sodium Potassium Chloride Carbon Dioxide Anion Gap BUN Creatinine Estimated Creat Clear Estimated GFR Est GFR ( Amer) Glucose Calcium Magnesium Troponin I Triglycerides Cholesterol LDL Cholesterol VLDL Cholesterol HDL Cholesterol Cholesterol/HDL Ratio Urine Color Urine Appearance Urine pH Ur Specific [place] Urine Protein Urine Glucose (UA) Urine Ketones Urine Blood Urine Nitrate Urine Bilirubin Urine Urobilinogen Ur Leukocyte Esterase Urine WBC Urine Bacteria DS: Diagnosis - Discharge Diagnosis (1) Chest pain Status: Acute (2) RBBB (right bundle branch block with left anterior fascicular block) Status: Acute (3) Tobacco use Status: Acute (4) Obesity (BMI 30.0-34.9) Status: Acute (5) Squamous cell carcinoma Status: Acute (6) Hypothyroid Status: Acute (7) Hypertension Status: Acute (8) CKD (chronic kidney disease) stage 3, GFR 30-59 ml/min Status: Acute Discharge Plan - Patient Discharge Instructions ACTIVITY: Continue current activity DIET: continue same diet Patient Instructions: Kidney Failure, Nicotine Addiction, DI for Chest Pain, DI for Hypothyroidism - Follow up Plan Disposition: Home, Self-Long Term Medications: Home Medications Medication Instructions Recorded Confirmed Type Gabapentin [Gabapentin 400mg Cap] 400 mg PO TID 02/06/19 02/06/19 History levothyroxine 50 mcg capsule 50 mcg PO DAILY #90 cap 02/06/19 02/06/19 Rx lisinopril 10 mg tablet 10 mg PO DAILY #90 tab 02/06/19 02/06/19 Rx Losartan Potassium 50 mg PO DAILY #90 tab 02/07/19 Rx Nicotine [Nicoderm 21mg/24hr 21 mg TD DAILYP PRN #30 patch.td24 02/07/19 Rx patch] Prescriptions/Medication Reconciliation: New Nicotine [Nicoderm 21mg/24hr patch] 21 mg TD DAILYP PRN #30 patch.td24 PRN Reason: Nicotine Cravings Losartan Potassium 50 mg PO DAILY #90 tab Continued levothyroxine 50 mcg capsule 50 mcg PO DAILY #90 cap Gabapentin [Gabapentin 400mg Cap] 400 mg PO TID Discontinued lisinopril 10 mg tablet 10 mg PO DAILY #90 tab
--- NOTE | 2019-02-08 11:03 | Cardiology Report ---
PROCEDURE: 2-D M-mode and color Doppler study INDICATIONS FOR THE TEST: Chest pain+ COPD Heart Murmur Tobacco Smoking+ Palpitations Fatigue Syncope Edema Hypertension+Diabetes Mellitus Rheumatic Fever SOB SANTO Obesity+Hyperlipidemia+ Family History HD Additional History SQUAMOUS CELL CA, CHEMO, RADIATION, RBBB PATIENT INFORMATION HEIGHT: 70 WEIGHT:220 GENDER: Male B/P:136/76 2-D/M-MODE INTERPRETATION: 2-D MEASUREMENTS OBSERVED VALUES IN CMS Right Ventricular Dimension (RVDd) 2.6 Interventricular Septum (Thickness)(IVsd) 1.2 Left Ventricular Internal Dimensions(LVIDd) 3.8 Left Ventricular Posterior Wall (Thickness)(LVPWd) 1.5 Aortic Root 3.6 Aortic Cusp Separation 1.8 Left Atrial Dimensions (LAD) 3.9 2D 1. Left atrium is mildly enlarged, left ventricle is normal size, mild concentric left ventricular hypertrophy, visually estimated ejection fraction 55% with no regional wall motion abnormality. 2. The right atrium and right ventricle are normal size and contractility. 3. The aortic valve is thickened and calcified leaflet continue to display mobility. 4. The mitral and tricuspid valves are grossly normal. 5. The pulmonic valve is poorly visualized. 6. No significant pericardial effusion noted. DOPPLER INTERROGATION: Doppler interrogation of the aortic, mitral and tricuspid valvular presence of mild mitral and tricuspid regurgitation, tricuspid regurgitation jet velocity is inadequate for calculation of the right ventricular systolic pressure, grade 1 diastolic dysfunction seen without tissue Doppler evidence of raised left atrial pressure. CONCLUSION: 1. Mildly enlarged left atrium, normal left ventricular size, mild concentric left ventricular hypertrophy, visually estimated ejection fraction 55% with no regional wall motion abnormality, grade 1 diastolic dysfunction seen without tissue Doppler evidence of raised left atrial pressure. 2. Mild mitral and tricuspid regurgitation 3. No significant pericardial effusion noted.
== END 2019-02-07 14:35 | disposition home or self-care (01) ==
LOC: 2ND 19:44 → ER 19:44 → 2ND 21:18
PROVIDERS: ADMIT Emergency Medicine; ATTEND Emergency Medicine
DX: E66.9 Obesity, unspecified; I45.19 Other right bundle-branch block; Z82.49 Family history of ischemic heart disease and other diseases of the circulatory system; Z79.899 Other long term (current) drug therapy; I12.9 Hypertensive chronic kidney disease with stage 1 through stage 4 chronic kidney disease, or unspecified chronic kidney disease; E03.9 Hypothyroidism, unspecified; Z88.0 Allergy status to penicillin; Z68.32 Body mass index [BMI] 32.0-32.9, adult; Z72.0 Tobacco use; R94.31 Abnormal electrocardiogram [ECG] [EKG]; E78.5 Hyperlipidemia, unspecified; N18.2 Chronic kidney disease, stage 2 (mild); C80.1 Malignant (primary) neoplasm, unspecified
CPT/HCPCS: 36415; 71020; 71046; 78452; 80048; 80053; 80061; 81001; 83735; 84436; 84443; 84484; 85025; 93005; 93017; 93306; 96365; 96374; 99284; 99285; A9502; G0378; J2405; J2785

== ENCOUNTER → 2019-04-20 13:06 | Outpatient (CLI) | payer MEDICARE, SELFPAY | PROVIDERS: PCP Emergency Medicine; Visit Provider Emergency Medicine | DX: M25.561 Pain in right knee (principal) ==

== ENCOUNTER → 2019-04-24 11:07 | Outpatient (CLI) | payer MEDICARE, SELFPAY ==
--- NOTE | 2019-04-24 11:08 | MR_ITS ---
PROCEDURE: MR KNEE RT WO CON CLINICAL INDICATION: knee pain Knee pain lateral and posterior with instability COMPARISON: XR KNEE RT 3V from 03/31/2019 TECHNIQUE: Routine multiplanar multi echo sequences are performed without gadolinium enhancement. FINDINGS: The cruciate ligaments appear intact. No obvious tear of the collateral ligaments. The patellar tendon and quadriceps tendon appear intact. There is mild thinning of the patellar cartilage. No definite meniscal tear. There is some irregularity of the posterior horn of the medial meniscus however this does not meet strict MRI criteria of a meniscal tear. There are severe osteoarthritic changes of both medial and lateral compartment greater along the medial compartment. There is extrusion of the medial meniscus medially with resultant narrowing of the medial joint space. There is a moderate-sized knee joint effusion with diffuse subcutaneous edema throughout the soft tissues of the knee. Severe osteoarthritic changes are present at the patellofemoral joint. No bone marrow edema apparent. There is some mild subchondral sclerosis of the bones of the knee IMPRESSION: 1. Severe tricompartmental osteoarthritic changes greater along the medial compartment with some subchondral sclerosis 2. No definite internal derangement. 3. Moderate-sized knee joint effusion with a moderate amount of generalized subcutaneous and soft tissue edema about the knee. Dictated by: Joe Sam MD 04/25/2019 13:56 Electronically signed by Joe Sam MD in [place] 04/25/2019 13:56
== END ==
PROVIDERS: PCP Emergency Medicine; Visit Provider Emergency Medicine
DX: M25.561 Pain in right knee (principal)
CPT/HCPCS: 73721

== ENCOUNTER → 2019-05-10 11:30 | Outpatient (CLI) | payer MEDICARE, SELFPAY ==
--- NOTE | 2019-05-10 11:35 | XR_ITS ---
PROCEDURE: XR HIP RT 2-3V W/PELVIS CLINICAL INDICATION: hip pain Right hip pain COMPARISON: XR HIP RT 2-3V W/PELVIS from 03/31/2019 FINDINGS: Minimal osteoarthritic change right hip. No fracture or dislocation. No lytic or blastic change. There are mild facet arthritic changes at the lumbosacral junction and there is minimal osteoarthritic change also of the left hip. IMPRESSION: No change minimal osteoarthritic changes of the right hip. Dictated by: Joe Sam MD 05/10/2019 14:02 Electronically signed by Joe Sam MD in [place] 05/10/2019 14:02
--- NOTE | 2019-05-10 11:35 | XR_ITS ---
PROCEDURE: XR KNEE RT 4V CLINICAL INDICATION: rt knee pain COMPARISON: XR KNEE RT 3V from 03/31/2019 FINDINGS: No fracture or dislocation. No lytic or blastic change. There is normal mineralization. Osteoarthritic changes are present involving the lateral aspect of the patellofemoral joint with mild lateral patellar subluxation. Osteoarthritic changes also noted at the medial compartment. There is a small suprapatellar effusion. Other findings:None. IMPRESSION: Osteoarthritic changes with suprapatellar effusion Dictated by: Joe Sam MD 05/10/2019 14:00 Electronically signed by Joe Sam MD in [place] 05/10/2019 14:00
== END ==
PROVIDERS: PCP Emergency Medicine; Visit Provider Orthopaedic Surgery
DX: G89.29 Other chronic pain (principal); M25.561 Pain in right knee; M25.551 Pain in right hip
CPT/HCPCS: 73502; 73564

== ENCOUNTER → 2019-05-18 13:41 | Outpatient (CLI) | payer MEDICARE, SELFPAY ==
[2019-05-18 15:37] LABS: Amphetamine/Metha Screen,Urine Positive ng/mL (<1000); Barbiturates Screen,Urine Negative ng/mL (<200); Benzodiazepines Screen,Urine Positive ng/mL (<200); Cannabinoid Screen,Urine Positive ng/mL (<50); Cocaine Screen,Urine Negative ng/mL (<300); Methadone Screen,Urine Negative ng/mL (<300); Opiate Screen,Urine Negative ng/mL (<300); Phencyclidine Screen,Urine Negative ng/mL (<25)
[2019-05-26 07:58] LABS: Amphetamine Positive (.); Amphetamines Positive (.); Methamphetamine Negative (Cutoff=500)
[2019-05-26 18:14] LABS: Amphetamine (GC/MS) 3804 ng/mL (Cutoff=500)
[2019-05-30 10:10] LABS: Alprazolam Negative (Cutoff=100); Benzodiazepines Positive ng/mL (Cutoff=100); Clonazepam Positive (.); Flurazepam Negative (Cutoff=100); Lorazepam Negative (Cutoff=100); Midazolam Negative (Cutoff=100); Temazepam Negative (Cutoff=100); Triazolam Negative (Cutoff=100)
[2019-05-30 12:18] LABS: Clonazepam Confirm 161 ng/mL (Cutoff=100)
[2019-07-05 22:06] LABS: Oxycodone NEGATIVE; Oxycodone Confirm NEGATIVE; Oxymorphone NEGATIVE; Oxymorphone Confirm NEGATIVE
== END ==
PROVIDERS: Visit Provider Emergency Medicine
DX: T50.901A Poisoning by unspecified drugs, medicaments and biological substances, accidental (unintentional), initial encounter (principal); Z79.899 Other long term (current) drug therapy
CPT/HCPCS: 80305; 80324; 80346; 80365

== ENCOUNTER → 2019-06-08 13:31 | Outpatient (CLI) | payer MEDICARE, SELFPAY ==
[2019-06-08 13:43] LABS: Anion Gap 13.7 mEq/L (5-15); Blood Urea Nitrogen 22 mg/dL (7-18); Carbon Dioxide 27 mmol/L (21.0-32.0); Chloride 103 mmol/L (98-107); Creatinine,Serum 0.97 mg/dL (0.70-1.30); Estimated Glomerular Filt Rate 78 ml/min (>60); GFR (African American) 95 ML/MIN (>60); Glucose 107 mg/dL (74-106); Potassium 4.7 mmoL/L (3.5-5.1); Sodium 139 mmol/L (136-145)
[2019-06-08 14:04] LABS: Basophils % 0.4 % (0.1-2.0); Eosinophils # 0.1 K/mm3 (0.0-0.4); Eosinophils % 1.5 % (0.1-12.0); Hemoglobin 10.1 g/dL (14.1-18.0); Lymphocytes # 0.9 K/mm3 (0.7-4.5); Lymphocytes % 9.8 % (10-50); Mean Corpuscular HGB Conc 32.6 g/dL (31.8-35.4); Mean Corpuscular Hemoglobin 30.5 pg (27.0-31.2); Mean Corpuscular Volume 93.5 fl (80-94); Monocytes # 0.6 K/mm3 (0.1-1.0); Monocytes % 6.1 % (1.7-9.3); Neutrophils # 7.7 K/mm3 (1.8-7.8); Neutrophils % 82.2 % (37.0-80.0); Platelet Count 415 K/mm3 (142-424); Red Blood Count 3.32 M/mm3 (4.60-6.20); Red Cell Distribution Width 14.2 % (11.5-17.5); White Blood Count 9.4 K/mm3 (4.8-10.8)
[2019-06-08 14:25] LABS: Amphetamine/Metha Screen,Urine Negative ng/mL (<1000); Barbiturates Screen,Urine Negative ng/mL (<200); Benzodiazepines Screen,Urine Negative ng/mL (<200); Cannabinoid Screen,Urine Positive ng/mL (<50); Cocaine Screen,Urine Negative ng/mL (<300); Methadone Screen,Urine Negative ng/mL (<300); Opiate Screen,Urine Negative ng/mL (<300); Phencyclidine Screen,Urine Negative ng/mL (<25)
== END ==
PROVIDERS: Visit Provider Emergency Medicine
DX: R25.1 Tremor, unspecified (principal); R53.83 Other fatigue; M54.2 Cervicalgia
CPT/HCPCS: 80048; 80305; 85025

== ENCOUNTER → 2019-06-18 14:28 | Outpatient (POV) | payer MEDICARE, SELFPAY | PROVIDERS: Visit Provider Specialist | DX: R25.1 Tremor, unspecified (principal); G56.00 Carpal tunnel syndrome, unspecified upper limb | CPT/HCPCS: 95886; 95910 ==

== ENCOUNTER → 2019-06-19 14:42 | Outpatient (CLI) | payer MEDICARE, SELFPAY ==
[2019-06-19 19:52] LABS: Amphetamine/Metha Screen,Urine Negative ng/mL (<1000); Barbiturates Screen,Urine Negative ng/mL (<200); Benzodiazepines Screen,Urine Negative ng/mL (<200); Cannabinoid Screen,Urine Positive ng/mL (<50); Cocaine Screen,Urine Negative ng/mL (<300); Methadone Screen,Urine Negative ng/mL (<300); Opiate Screen,Urine Positive ng/mL (<300); Phencyclidine Screen,Urine Negative ng/mL (<25)
== END ==
PROVIDERS: Visit Provider Emergency Medicine
DX: Z79.899 Other long term (current) drug therapy (principal)
CPT/HCPCS: 80305

== ENCOUNTER → 2019-07-09 09:14 | Outpatient (CLI) | payer MEDICARE, SELFPAY ==
--- NOTE | 2019-07-09 09:19 | MR_ITS ---
PROCEDURE: MR CERVICAL SPINE WO CON CLINICAL INDICATION: neck pain COMPARISON: CT CERVICAL SPINE WO CON from 03/31/2019 TECHNIQUE: Standard multiplanar multiecho sequences are performed without contrast. 3-D MIP and myelographic images are also rendered and reviewed FINDINGS: Alignment, vertebral body heights and signal from the osseous marrow elements are normal. Disc space heights appear normal. C2-3 level shows mild central posterior protrusion adjacent to the ventral surface of the cord with borderline mild ventral cord deformity. Foraminal areas are normal. C3-4 shows diffuse mild bulge with minimal ventral cord deformity. Foraminal areas are normal. C4-5 appears normal. Foraminal areas are normal. C5-6 shows small protrusion with minimal ventral cord deformity. Foraminal areas are patent. C6-7 shows a central small protrusion with borderline mild ventral cord deformity. Foraminal areas are patent. C7-T1 level shows no bulge or herniation. Foraminal areas are normal. Spinal cord is of normal signal. Areas of facet arthrosis are better visualized on the prior CT scan as well as the postoperative changes in the right side of the neck. Foramen magnum area appears normal. IMPRESSION: Multiple levels of very subtle mild protrusions as discussed above with mild ventral cord deformity without central canal stenosis and there is no abnormal cord signal. Visualized foraminal areas appear patent. Dictated by: Pedrito Martínez 07/09/2019 14:18 Electronically signed by Pedrito Martínez in [place] 07/09/2019 14:18
== END ==
PROVIDERS: PCP Emergency Medicine; Visit Provider Emergency Medicine
DX: M54.2 Cervicalgia (principal)
CPT/HCPCS: 72141; 76376

== ENCOUNTER → 2019-07-31 09:08 | Outpatient (CLI) | payer MEDICARE, SELFPAY ==
--- NOTE | 2019-07-31 09:21 | XR_ITS ---
PROCEDURE: XR CHEST 2V CLINICAL HISTORY: HTN Smoker, high blood pressure COMPARISON: CXR CHEST(2 VIEWS-NOT PORTABLE) from 04/20/2017 CXR CHEST(2 VIEWS-NOT PORTABLE) from 05/09/2017 Chest from 02/06/2019 XR CHEST AP from 03/31/2019 FINDINGS: The cardiomediastinal silhouette and pulmonary vascularity are within normal limits. The lungs are clear without infiltrates, suspicious nodules, or pleural effusions. No acute bony abnormalities. IMPRESSION: No acute findings. Dictated by: Joe Sam MD 07/31/2019 16:23 Electronically signed by Joe Sam MD in [place] 07/31/2019 16:23
--- NOTE | 2019-07-31 09:26 | XR_ITS ---
PROCEDURE: XR KNEE RT 4V CLINICAL INDICATION: OA Knee pain COMPARISON: XR KNEE RT 3V from 03/31/2019 XR KNEE RT 4V from 05/10/2019 FINDINGS: No fracture or dislocation. No lytic or blastic change. There is normal mineralization. There are moderate osteoarthritic changes of the medial compartment with mild osteoarthritis of the patellofemoral joint. No significant change from the previous exam. Small suprapatellar effusion is present. Other findings:None. IMPRESSION: Osteoarthritis of the medial compartment and patellofemoral joint not significantly change with small knee joint effusion Dictated by: Joe Sam MD 07/31/2019 15:17 Electronically signed by Joe Sam MD in [place] 07/31/2019 15:17
[2019-07-31 10:01] LABS: Microscopic, Urine URINE MICROSCOPIC (MICROSCOPIC)
--- NOTE | 2019-07-31 10:21 | ECG_ITS ---
APPROVED REPORT Exam: Resting ECG HR:64 bpm ECG Measurements Heart Rate 64 AXES KS 158 P 22 QRSd 146 QRS -22 QT 430 T 17 QTc 443 <Conclusion> Normal sinus rhythm Right bundle branch block Abnormal ECG Electronically signed by : Toney Harris, 08/02/2019 07:39:32
[2019-07-31 10:45] LABS: Basophils # 0.1 K/mm3 (0-0.2); Eosinophils # 0.1 K/mm3 (0.0-0.4); Eosinophils % 2.4 % (0.1-12.0); Lymphocytes # 0.9 K/mm3 (0.7-4.5); Lymphocytes % 16.5 % (10-50); Mean Corpuscular HGB Conc 31.5 g/dL (31.8-35.4); Mean Corpuscular Hemoglobin 28.6 pg (27.0-31.2); Mean Corpuscular Volume 90.7 fl (80-94); Monocytes # 0.3 K/mm3 (0.1-1.0); Monocytes % 4.7 % (1.7-9.3); Neutrophils # 4.1 K/mm3 (1.8-7.8); Neutrophils % 75.5 % (37.0-80.0); Platelet Count 294 K/mm3 (142-424); Red Blood Count 4.19 M/mm3 (4.60-6.20); White Blood Count 5.4 K/mm3 (4.8-10.8)
[2019-07-31 11:43] LABS: Appearance,Urine CLEAR (Clear); Bilirubin,Urine Negative (Negative); Blood, Urine Negative (Negative); Color,Urine YELLOW (Yellow); Glucose,Urine (UA) Negative (Negative); Ketones,Urine Negative (Negative); Leukocyte Esterase,Urine Negative (Negative); Nitrate,Urine Negative (Negative); Protein,Urine Negative (Negative); Specific Gravity, Urine >= 1.030 (1.005-1.030); Urobilinogen,Urine 0.2 EU/dl (0.2)
[2019-07-31 13:22] LABS: Alanine Aminotransferase 10 U/L (12-78); Albumin Level 3.4 gm/dL (3.4-5.0); Alkaline Phosphatase 102 U/L (46-116); Anion Gap 13.4 mEq/L (5-15); Aspartate Amino Transferase 7 U/L (15-37); Bilirubin,Total 0.3 mg/dL (0.2-1.0); Blood Urea Nitrogen 21 mg/dL (7-18); Carbon Dioxide 26 mmol/L (21.0-32.0); Chloride 103 mmol/L (98-107); Creatinine,Serum 0.95 mg/dL (0.70-1.30); Estimated Glomerular Filt Rate 80 ml/min (>60); GFR (African American) 97 ML/MIN (>60); Globulin 3.5 gm/dl (1.3-3.2); Glucose 102 mg/dL (74-106); Potassium 4.4 mmoL/L (3.5-5.1); Sodium 138 mmol/L (136-145); Total Protein,Serum 6.9 gm/dL (6.4-8.2)
== END ==
PROVIDERS: PCP Emergency Medicine; Visit Provider Orthopaedic Surgery
DX: Z01.818 Encounter for other preprocedural examination (principal); M17.11 Unilateral primary osteoarthritis, right knee
CPT/HCPCS: 36415; 71046; 73564; 80053; 81001; 85025; 93005

== ENCOUNTER → 2019-08-04 11:51 | Outpatient (CLI) | payer MEDICARE, SELFPAY | PROVIDERS: Visit Provider Orthopaedic Surgery | DX: Z01.818 Encounter for other preprocedural examination (principal) | CPT/HCPCS: 36415; 86850 ==

== ENCOUNTER 2019-08-06 07:19 | Observation (INO) ==
[2019-08-06 07:49] LABS: Amphetamine/Metha Screen,Urine Negative ng/mL (<1000); Barbiturates Screen,Urine Negative ng/mL (<200); Benzodiazepines Screen,Urine Negative ng/mL (<200); Cannabinoid Screen,Urine Positive ng/mL (<50); Cocaine Screen,Urine Negative ng/mL (<300); Methadone Screen,Urine Negative ng/mL (<300); Opiate Screen,Urine Negative ng/mL (<300); Phencyclidine Screen,Urine Negative ng/mL (<25)
--- NOTE | 2019-08-06 08:29 | Progress Note ---
[facility] Anesthesia Checklist - Patient Identification Patient Identification: Arm Band, Verbal (Name & ) - Structural Data Admitted From: Home Planned Operative Procedure/s: Right TKA Consent for Planned Operative Procedure(s) Verified: Yes Verified Documents: Surgical Consent, History and Physical, Cardiac Clearance - NPO Status Verified Time NPO: 00:00 - Chart Verification Results Verified: CBC, BMP, UA (Urine toxocology) - Additional verifications Anesthesia Reactions: No Hx Blood Transfusions: No Blood Transfusion Reaction: No - Airway Assessment C-Spine Mobility Assessed: Yes TMJ Mobility Assessed: Yes Dentition: Edentulous - Neurological Assessment Level of Consciousness: Awake, Alert, Appropriate, Follows Commands Hx Seizures: No Numbness or tingling in extremities: No - Anesthesia Plan Anesthesia Risk discussed: Yes Anesthesia Plan: Verified ASA Class: II Anesthesia Type: Spinal (with ACB) [facility] History I have reviewed the patient's past medical history: Yes Medical History: Reports:: Cancer (neck/ lymphnodes), Chronic Obstructive Pulmonary Disease (COPD), Gastroesophageal Reflux Disease(GERD), Hyperlipidemia, Hypertension, MRSA, Seizures Denies:: Diabetes Mellitus Type 1, Diabetes Mellitus Type 2, Internal Pacemaker, Renal Disease *Have you ever received a pneumonia vaccine?: Yes *Have you received a flu vaccine this season?: Yes Other Medical History: Reports: Arthritis, Chemotherapy, Hypothyroidism, Radiation Therapy. Denies: Blood Transfusion Reaction Anesthesia experience/problems:: No complications Laterality Cases: Left: ACL Repair, Right: Arthroscopy Shoulder, Bilateral: Arthroscopy Knee Other Surgeries: Yes: Cancer Surgery, Colonoscopy. No: Pacemaker Amputation: No Fractures: No - *Social History Educational Level: Attended College Smoking Status: Current every day smoker Tobacco Type: cigarettes # Packs/Day (cigarettes): 1 Alcohol Intake: never Substance Use Type: marijuana *Occupational Status:: disabled Housing: house Household Members: friend(s) *Travel in the last 8 weeks: None Family Hx:: Cancer
--- NOTE | 2019-08-06 13:23 | Progress Note ---
[facility] Anesthesia Record Part I Intake, IV Amount: 1,900 Estimated blood loss (mL): 125 Urine output (mL): 550 Blood Products used (#): none Blood Pressure: 127/101 SaO2: 96 Pulse Rate: 64 Respiratory Rate: 16 Temperature: 97.4 F Patient is:: Awake, Stable Stable to PACU at:: 13:18
--- NOTE | 2019-08-06 13:59 | Operative Note ---
Date of procedure: 08/06/19 Pre-op Diagnosis:: Advanced osteoarthritis, right knee Post-op Diagnosis:: Same Procedure performed:: Uncemented total knee arthroplasty, right Surgeon:: Glenn Cruz MD Reimbursement Director(s):: Hayley Archer CRYPTOLOGIC LINGUIST:: Trino Fam Anesthesia: regional (Adductor canal block), spinal Estimated blood loss (mL): 50 Clinical Note:: Patient is a 64-year-old male with end-stage tricompartmental osteoarthritis and [id number] changes over the medial compartment with a progressive varus deformity and flexion contracture of his right knee presented with unremitting severe pain not relieved by conservative management. The arthritic process and pain are advanced to the point that it is becoming a hazard for the patient with risk of falling and injuring himself. A total knee arthroplasty is indicated to relieve the pain, improve function, reduce the risk of falls and improve quality of life. Please refer to my office note for full details. Operative findings:: As noted on the preoperative evaluation, the knee joint has a fixed flexion of 10 with 5 degrees of fixed varus deformity. As seen on the x-rays, the medial and patellofemoral compartments are showing advanced degenerative changes with [id number] appearance. The menisci and cruciate ligaments are significantly degenerate. There is osteophyte formation over all 3 compartments. Also there is florid synovitis the samples of which were obtained for microbiology and histopathology. Bone quality is excellent. Operative note:: On the day of the surgery the patient and family were seen in the preoperative area. I have again reviewed the clinical and x-ray findings and again discussed the diagnosis, natural history and management options in detail including both nonsurgical and surgical. Patient has end-stage degenerative arthritis of the right knee and has failed to respond satisfactorily to appropriate conservative management so far and has opted for a total knee arthroplasty. The right knee joint is stiff and painful, and is limiting mobility, ADLs and quality of life. Also the knee gives out and patient is at risk of falls resulting in fractures. I have again discussed the details of the procedure, risks and benefits and alternatives in detail. The complications discussed include but are not limited to infection, injury to nerves and blood vessels including injury to popliteal artery, injury to tendons and ligaments, DVT and PE, fat embolism, intraoperative fracture, limb length inequality, patella fracture, patellofemoral instability, patellar clunk syndrome, quadriceps and patellar tendon rupture, implant failure, component loosening, periprosthetic femur and tibia fractures, stiffness (arthrofibrosis), limp, incomplete relief of pain, incomplete functional recovery, likely need for further surgery in future including revision and anesthetic complications including heart attack, stroke and even . We also discussed about the likely need for blood transfusion and transfusion reactions. We discussed how any of these events can be devastating. We have discussed nonsurgical alternatives as well. Patient understands and wishes to proceed with a right total knee arthroplasty as planned and I believe that he is fully informed as to the risks, benefits, and alternatives including nonsurgical alternatives. We also discussed the postoperative course including the rehab and physical therapy required. Patient lives with family and wants to go to go back home after surgery. A physical examination was performed and documented. Patient understood the risks, agreed to proceed with surgery, signed the consent form and no guarantees or assurances were given or implied. The limb was appropriately marked and initialed by me. The patient was then brought to the operating room and a spinal anesthesia was administered by the clutch mechanic. Prior to that he had adductor canal nerve block in the pre-anesthetic area. The patient was then positioned supine on the operating table. All the bony prominences were appropriately padded. A well-padded tourniquet cuff was placed high over the upper thigh. The RIGHT knee was then prepped with isopropyl alcohol followed by chlorhexidine and draped in the usual sterile fashion. Prior to this, patient had used Hibiclens for a total of 5 days prior to the surgery and also used topical intranasal mupirocin. The entire operative team wore isolation suits and the Operating Room traffic was controlled. The skin incision was marked for a medial parapatellar approach to the knee joint. The entire operative site was sealed off with Ioban drape. A preprocedure timeout was performed as per hospital protocol identifying the patient, operative side and site. At the start of the procedure administration of prophylactic IV antibiotics (Ancef and vancomycin) was confirmed with the clutch mechanic. Also the patient received 1 dose of IV tranexamic acid before starting the procedure and another dose at the end of the procedure to reduce the perioperative blood loss. The limb was exsanguinated with Esmarch bandage, the knee joint flexed beyond 90 and the tourniquet cuff was inflated to 300 mm Hg. Please see the nursing records for total tourniquet time. I then made a midline incision utilizing a #10 scalpel blade. Electrocautery was used to seal off subcutaneous vessels. The extensor mechanism was exposed, marked and a curvilinear incision made for a medial parapatellar approach using the scalpel blade. The patella was everted carefully and the fat pad resected to allow sufficient visualization of the proximal tibia. Osteophyte formation was noted over all 3 compartments. The osteophytes were removed with rongeurs. There was also florid synovitis with inflammatory type of arthritis. Even though the knee did not look infected, samples of synovial tissue were obtained for microbiology and histopathological examination. The intercondylar notch was filled with osteophytes and the anterior cruciate ligament noted to be degenerate. The menisci were also degenerate and the anterior aspects of both menisci were resected. An adequate medial release was performed with the knife and Ramses elevator. I then localized the center of the femoral articular surface utilizing the Mathews line and transcondylar axis. A pin was placed in the center of the femur and the [employer] 2 navigation system was used to make the distal femoral cut. After appropriate calibrating maneuvers and adjustments with OrthoAlign system, the distal cutting jig was pinned into place. The distal cut was made with a [place] saw after removing the OrthoAlign system. Then the posterior referencing sizing jig was placed. The femur sized best at a size 5 femur for the [place] Triathlon system. Drill holes were made for the 4-in-1 cutting block in 3 degrees of external rotation. We then placed the 4-in-1 cutting block in position and the cross pins were added stabilizing the block. The willi wing utilized to ensure notching of the anterior cortex would not occur. The anterior cut was made followed by the posterior cut then the posterior chamfer and finally the anterior chamfer cuts in that order. Soft tissue/collateral ligaments were protected throughout with careful retraction using the Z retractors. We checked for trueness of the cuts and then moved on to the tibia. The Knee[employer] 2 navigation system was again used to make the proximal tibial cut. The jig was pinned in position and aligned in 0 degrees of varus- valgus and 3 degrees of posterior slope utilizing the navigation system. We then pinned cutting block in position for minimal resection of the tibia from the medial side which was more severely involved with arthritis, checked the alignment, protected the soft tissues with appropriate retractors and resected proximal tibia with the [place] saw. The resected tibial plateau articular surface was removed and sized it at a size 6. We ensured trueness of the cut and correct (3 degrees) posterior slope. We then checked the flexion and extension gaps and found them to be equal and well balanced. We trialed the femur and the tibia with a polyethylene insert and ranged the knee to ensure full flexion and extension and checked for ligamentous stability. We then everted the patella and measured the thickness with calipers. The patella measured 25 mm thick and a minimal resection (10 mm) of the patella was carried out using the appropriate cutting guide. I then made the holes for a 3 pegged asymmetric press-fit patellar button using the patella peg drill guide. We had lateralized the femur and medialized the patella intentionally for a better patellar tracking. We placed trial components and noted that a 9 mm polyethylene to fit best. This gave us appropriate range of motion with proper ligamentous stability. We allowed this to be free-floating and then checked it and made sure the tibial baseplate was in appropriate position in relation to the tibial tubercle. We also used tibial alignment niranjan to check for satisfactory position of the base plate and markings were made with electrocautery on the proximal tibia. We then completed the femoral preparation by making lug holes for the femoral component and removed the trial components leaving the tibial baseplate in position. I then pinned the tibial base plate to the top of the tibia in correct alignment and completed the broaching of the proximal tibia for an uncemented baseplate. We then removed the baseplate and made 4 drill holes utilizing the appropriate jig to fit the baseplate. I then copiously irrigated the knee with pulse lavage and then dried the cut surfaces. We then placed the press-fit tibial tray and impacted it into place followed by the press-fit femoral component and insertion of the patellar component; the 3 pegged press-fit asymmetrical patella button was placed on the cut surface of the patella and seated into position with a clamp. We then placed a 9 mm tibial trial insert and made sure the knee is stable in both flexion and extension and also checked for appropriate patella tracking. Then the trial was removed and definitive 9 mm polyethylene tibial insert was placed into position ensuring that the dovetails fit appropriately and that the polyethylene was down and seated into the tibial tray properly. The knee joint was put through range of motion and noted to be stable in both AP and ML direction; the patella was noted to be tracking appropriately with no thumb technique. The knee joint was then soaked with dilute Betadine (0.35 percent) solution for 3 minutes followed by suctioning of the solution and pulsatile lavage with the 1 L of normal saline. At this point, I also injected the capsule and soft tissue with the local anesthetic cocktail (0.5 percent bupivacaine 200 mg +10 mg of morphine +600 g of epinephrine +750 mg of cefuroxime +30 mg of ketorolac diluted in normal saline to make up a total volume of 120 mL). The tourniquet was deflated and hemostasis obtained with diathermy cautery. The knee joint was again thoroughly irrigated with the pulse lavage and good hemostasis was confirmed before proceeding with wound closure. The capsule/extensor mechanism was closed with #1 Stratafix PDS running sutures ensuring a watertight closure. Next the subcutaneous tissue was closed with 2-0 Stratafix PDS running sutures. The skin was closed with subcuticular 3-0 Monocryl Stratafix sutures and Dermabond Prineo Skin Closure System. Sterile dressings were applied consisting of 4 x 4 gauze, ABDs, soft roll and secured in place with Jama wrap. No drains were placed. The patient was then transferred from the operating table onto the bed. The tibialis posterior and dorsalis pedis pulses were noted 2+ with good capillary refill in the foot. The patient was then reversed from the anesthetic and transported to the postoperative recovery area in a stable condition. Patient tolerated the procedure well and there were no immediate complications. The swab, needle and instrument counts were correct, according to the scrub team, at the end of the procedure. Another dose of tranexamic acid was given intravenously by the clutch mechanic after the procedure. Portable x-rays of the knee were obtained in the recovery area which showed the components were well fixed in a satisfactory position without any complications. The knee was placed in a knee immobilizer which should be continued when standing and walking, until patient regains full quadriceps control. Postoperatively, institute and continue standard precautions and physical therapy for a standard total knee arthroplasty starting on postoperative day 1. Patient can be mobilized full weightbearing as tolerated. Implants: [place] TRIATHLON TRITANIUM tibial component-size 6 David TRIATHLON cruciate retaining (CR) press-fit femoral component, size 5 right [place] TRIATHLON TRITANIUM asymmetric patellar component-38 x 11 mm David TRIATHLON X3 tibial bearing insert, CS size 6, 9 mm Industry player services representative: Marco Berry ([employer]) Condition: stable Disposition: PACU Specimens:: Synovial tissue for culture and sensitivity and histopathology Complications:: None
--- NOTE | 2019-08-06 15:34 | Pharmacy Consult Notes ---
[facility] Pharmacy VTE Monitoring - Patient Demographics Admission date: 08/06/19 Report Date: 08/06/19 Time: 15:34 Allergies/Adverse Reactions: Patient Allergies Penicillins [PENICILLINS] Allergy (Intermediate, Verified 08/06/19 07:45) Rash/hives Height: 1.78 m Weight: 100.896 kg - VTE Risk Was VTE Risk Assessment Performed: Yes VTE Score: 5 VTE Risk Level: Low Risk Clinical Trial Participant: No - Prophylaxis VTE Prophylaxis Ordered?: Yes Types of VTE Prophylaxis: IPCS Knee High, Pharmacological (xarelto post op)
[2019-08-07 06:35] LABS: Basophils % 0.2 % (0.1-2.0); Eosinophils % 0.1 % (0.1-12.0); Hematocrit 33.1 % (42.0-52.0); Hemoglobin 10.1 g/dL (14.1-18.0); Lymphocytes # 0.8 K/mm3 (0.7-4.5); Lymphocytes % 7.4 % (10-50); Mean Corpuscular HGB Conc 30.6 g/dL (31.8-35.4); Mean Corpuscular Volume 91.2 fl (80-94); Mean Platelet Volume 8.9 fl (7.4-10.4); Monocytes # 0.6 K/mm3 (0.1-1.0); Monocytes % 5.5 % (1.7-9.3); Neutrophils # 9.6 K/mm3 (1.8-7.8); Neutrophils % 86.8 % (37.0-80.0); Platelet Count 234 K/mm3 (142-424); Red Blood Count 3.63 M/mm3 (4.60-6.20); Red Cell Distribution Width 15.2 % (11.5-17.5)
[2019-08-07 06:41] LABS: Anion Gap 12.6 mEq/L (5-15)
[2019-08-07 07:35] LABS: Eosinophils % 1 % (0-3); Lymphocytes % 8 % (10-50); Monocytes % 5 % (2-9); Neutrophils % 86 % (42-76); Total Cells Counted 100
[2019-08-07 07:36] LABS: Hypochromasia 1+
--- NOTE | 2019-08-07 08:17 | Progress Note ---
[facility] Anesthesia Record Part II Discharge Time: 13:45 Destination: Medical Surgical Department PACU nurse assessment reviewed?: Yes Patient Condition:: Good Anesthesia Complications:: None Swallowing reflex intact?: Yes Cyanosis?: No Blood Pressure: 143/92 Pulse Rate: 61 Temperature: 97.6 F Mental Status: Alert & Oriented Pain level:: 5 Nausea and/or vomitting:: None Intake, IV Amount: 0
--- NOTE | 2019-08-07 08:45 | Consult Report ---
*Admission Date: 08/06/19 *Reason for consult:: HTN *History of present illness: Treatment per Ortho for uncemented total knee arthroplasty, right 08/06/2019 [facility] History Medical History: Reports:: Cancer (neck/ lymphnodes), Chronic Obstructive Pulmonary Disease (COPD), Gastroesophageal Reflux Disease(GERD), Hyperlipidemia, Hypertension, Lung Disease, MRSA, Seizures Denies:: Diabetes Mellitus Type 1, Diabetes Mellitus Type 2, Internal Pacemaker, Renal Disease *Have you ever received a pneumonia vaccine?: Yes *Have you received a flu vaccine this season?: Yes Other Medical History: Reports: Arthritis, Chemotherapy, Hypothyroidism, Radiation Therapy. Denies: Blood Transfusion Reaction Anesthesia experience/problems:: No complications Laterality Cases: Left: ACL Repair, Right: Arthroscopy Shoulder, Bilateral: Arthroscopy Knee Other Surgeries: Yes: Cancer Surgery, Colonoscopy. No: Pacemaker Amputation: No Fractures: No - *Social History Educational Level: Attended College Smoking Status: Current every day smoker Tobacco Type: cigarettes # Packs/Day (cigarettes): 1 Alcohol Intake: never Substance Use Type: marijuana *Occupational Status:: disabled Housing: house Household Members: friend(s) *Travel in the last 8 weeks: None Family Hx:: Cancer Review of Systems - Review of Systems Review of systems:: pertinent systems reviewed and negative unless documented below - Constitutional Denies body ache(s), Denies chills - Eyes Denies blurry vision, Denies change in vision - ENT Denies difficulty swallowing, Denies headache(s) - *Cardiovascular Denies chest pain, Denies shortness of breath - *Respiratory Denies chest congestion, Denies cough - *Gastrointestinal Denies abdominal pain, Denies loose stools - *Genitourinary Denies difficulty urinating - *Musculoskeletal Reports joint pain - Integumentary/Breasts Reports wounds, Denies redness, Denies yellowing of the skin Comments: Josefina Kohler Knee - *Neurologic Denies confusion, Denies lack of coordination - Psychiatric Denies behavioral changes, Denies thoughts of hurting/killing others, Denies thoughts of hurting/killing yourself - Endocrine Denies cold intolerance, Denies heat intolerance - Hematologic/Lymphatic Denies easy bleeding, Denies easy bruising - Allergic/Immunologic Denies throat swelling, Denies wheezing Meds Home Medications Medication Instructions Recorded Confirmed Type atorvastatin 10 mg tablet 10 mg PO DAILY #90 tab 06/29/19 08/06/19 Rx gabapentin 400 mg capsule 400 mg PO TID #90 cap 07/24/19 08/06/19 Rx levothyroxine 75 mcg tablet 75 mcg PO DAILY #90 tab 07/24/19 08/06/19 Rx mupirocin 2 % topical ointment 1 applic TOPICAL BID 07/26/19 08/06/19 History Chlorhexidine Gluconate 1 applic TOPICAL ONCE 08/03/19 08/06/19 History Losartan Potassium 50 mg PO DAILY 08/03/19 08/06/19 History Pantoprazole Sodium [Protonix 40mg 40 mg PO DAILY 08/03/19 08/06/19 History tablet] Oxycodone HCl/Acetaminophen 1 tab PO TIDP PRN 08/06/19 08/06/19 History [Percocet 5/325mg tablet] Allergies Allergy/AdvReac Type Severity Reaction Status Date / Time Penicillins [PENICILLINS] Allergy Intermediate Rash/hives Verified 08/06/19 07:45 Exam Vital signs and Labs for Last 24 Hours: Temp Pulse Resp BP Pulse Ox 97.6 F 61 18 143/92 H 96 08/07/19 08:18 08/07/19 08:18 08/07/19 07:55 08/07/19 08:18 08/07/19 07:55 Laboratory Results - last 24 hr 08/06/19 09:32: Urine Color Yellow, Urine Appearance Clear, Urine pH 5.5, Ur Specific [place] >= 1.030, Urine Protein Negative, Urine Glucose (UA) Negative, Urine Ketones Negative, Urine Blood Negative, Urine Nitrate Negative, Urine Bilirubin Negative, Urine Urobilinogen 0.2, Ur Leukocyte Esterase Negative, Urine WBC Occasional, Ur Squamous Epith Cells Occasional, Urine Bacteria Trace 08/07/19 06:11: WBC 11.0 H, RBC 3.63 L, Hgb 10.1 L, Hct 33.1 L, MCV 91.2, MCH 27.9, MCHC 30.6 L, RDW 15.2, Plt Count 234, MPV 8.9, Neut % (Auto) 86.8 H, Lymph % (Auto) 7.4 L, Wilkin % (Auto) 5.5, Eos % (Auto) 0.1, Baso % (Auto) 0.2, Neut # (Auto) 9.6 H, Lymph # (Auto) 0.8, Wilkin # (Auto) 0.6, Eos # (Auto) 0.0, Baso # (Auto) 0.0, Total Counted 100, Neutrophils % (Manual) 86 H, Lymphocytes % (Manual) 8 L, Monocytes % (Manual) 5, Eosinophils % (Manual) 1, Platelet Estimate Normal, Hypochromasia 1+ 08/07/19 06:11: Sodium 141, Potassium 4.6, Chloride 104, Carbon Dioxide 29, Anion Gap 12.6, BUN 17, Creatinine 1.09, Estimated Creat Clear 98, Estimated GFR 69, Est GFR ( Amer) 83, Glucose 143 H, Calcium 9.0 I & O for Last 24 hours: Intake & Output 08/04/19 08/05/19 08/06/19 08/07/19 23:59 23:59 23:59 23:59 Intake Total 2455 / 2455 2482 / 2482 Output Total 675 / 1575 2525 / 2525 Balance 1780 / 880 -43 / -43 Weight 222 lb 7 oz 217 lb 5 oz - Constitutional no acute distress - *Routine HEENT Exam Head: Present: normocephalic, atraumatic. Absent: tenderness of temporal artery Eye: Present: EOMI, PERRL, normal accommodation. Absent: periorbital tenderness ENT: Present: mucous membranes moist. Absent: sinus tenderness - *Routine Neck Exam Present: supple, full ROM. Absent: JVD, tracheal deviation - *Routine Respiratory Exam Present: CTA bilaterally. Absent: accessory muscle use - *Routine Cardiovascular Exam Present: RRR - *Routine Abdominal Exam Present: soft. Absent: tenderness, firm - *Routine Extremities Exam Present: edema, pulses intact. Absent: calf tenderness - Routine Back/Spine/Pelvis Exam Back/Spine: Present: full ROM. Absent: CVA tenderness - *Routine Skin Exam Present: dry, wounds Comments: Drsg R Knee - *Routine Neurological Exam Present: alert, oriented X3, CN II-XII intact. Absent: motor deficit, altered mental status - Routine Psychiatric Exam Present: normal affect, normal thought process. Absent: suicidal ideation, homicidal ideation Internal Medicine - CN: Reslt - Labs CBC & Chem 7: 08/07/19 06:11 08/07/19 06:11 Labs: Short CBC 08/07/19 Range/Units 06:11 WBC 11.0 H (4.8-10.8) K/mm3 Hgb 10.1 L (14.1-18.0) g/dL Hct 33.1 L (42.0-52.0) % Plt Count 234 (142-424) K/mm3 BMP 08/07/19 06:11 Sodium 141 Potassium 4.6 Chloride 104 Carbon Dioxide 29 BUN 17 Creatinine 1.09 Glucose 143 H Calcium 9.0 Urine 08/06/19 Range/Units 09:32 Urine Color Yellow (Yellow) Urine Appearance Clear (Clear) Urine pH 5.5 (5.0-8.5) Ur Specific [place] >= 1.030 (1.005-1.030) Urine Protein Negative (Negative) Urine Glucose (UA) Negative (Negative) Assessment and Plan - Assessment and plan all Dx Assessment and Plan for all problems:: Rounded with Dr. Gonzalez, all orders per Dr. Gonzalez 1. We will monitor blood pressure
--- NOTE | 2019-08-07 17:54 | Progress Note ---
Subjective Date: 08/07/19 Time: 17:00 Principal diagnosis: Status post total knee arthroplasty, right Interval history: Patient is status post RIGHT total knee arthroplasty post op day #1. Patient is lying down on the bed. Says he is doing well and reports no problems. Patient reports moderate knee pain and says it's well-controlled with medication. No history of any nausea or vomiting. No history of any cough, chest pain, shortness of breath or palpitations. Patient is eating and drinking well. Patient says he managed to walk well with the help of physical therapy using a walker. Exam PN: Obj Ex Vital signs: Temp Pulse Resp BP Pulse Ox 98.6 F 72 20 166/84 H 99 08/07/19 15:35 08/07/19 15:35 08/07/19 15:35 08/07/19 15:35 08/07/19 15:35 Narrative: Laboratory Results - last 24 hr 08/06/19 09:32: Urine WBC Occasional, Ur Squamous Epith Cells Occasional, Urine Bacteria Trace 08/07/19 06:11: WBC 11.0 H, RBC 3.63 L, Hgb 10.1 L, Hct 33.1 L, MCV 91.2, MCH 27.9, MCHC 30.6 L, RDW 15.2, Plt Count 234, MPV 8.9, Neut % (Auto) 86.8 H, Lymph % (Auto) 7.4 L, [place] % (Auto) 5.5, Eos % (Auto) 0.1, Baso % (Auto) 0.2, Neut # (Auto) 9.6 H, Lymph # (Auto) 0.8, [place] # (Auto) 0.6, Eos # (Auto) 0.0, Baso # (Auto) 0.0, Total Counted 100, Neutrophils % (Manual) 86 H, Lymphocytes % (Manual) 8 L, Monocytes % (Manual) 5, Eosinophils % (Manual) 1, Platelet Estimate Normal, Hypochromasia 1+ 08/07/19 06:11: Sodium 141, Potassium 4.6, Chloride 104, Carbon Dioxide 29, Anion Gap 12.6, BUN 17, Creatinine 1.09, Estimated Creat Clear 98, Estimated GFR 69, Est GFR ( Amer) 83, Glucose 143 H, Calcium 9.0 Exam: General appearance: alert, active, awake, no acute distress ENT: normal exam; mucous membranes moist Neck: Soft and supple, trachea midline, full range of movements Cardiovascular: regular rate & rhythm, S1-S2 heard, normal peripheral pulses Respiratory: clear to auscultation, normal breath sounds Abdomen: Soft and nontender, normal bowel sounds Neuro: alert, oriented x 3, lightout examiner II-XII normal as tested, no deficits Psych: normal and appropriate mood/affect; communicates well Extremities: On examination of the right knee, the dressings are clean, dry and intact. I have changed the postoperative dressings and the incision looks clean, healthy and dry. He is able to actively straight leg raise. Distal pulses are 2+. Capillary refill is brisk. Thigh and calf are soft and nontender. No signs of compartment syndrome or DVT noted. Postoperative check x-rays satisfactory with good alignment of the total knee arthroplasty. No complications noted on the x-ray. - Urinary Catheter Management Coude Cath placed during this visit: no Progress Note: A&P (1) Primary osteoarthritis of right knee Status: Chronic Current Visit: Yes (2) History of total knee arthroplasty Status: Acute Current Visit: Yes Assessment and Plan for All Diagnoses:: Status post RIGHT total knee arthroplasty, postoperative day #1, doing well I have reviewed the intraoperative findings and procedure performed with the patient and his . I have given a paper copy of the postoperative knee x-ray to the patient. Patient started physical therapy and mobilization today with the help of physical therapist. Discontinue IV fluids as eating and drinking well. Continue DVT prophylaxis. Continue mobilization weightbearing as tolerated and continue standard postoperative rehab protocol. Care management consult regarding discharge planning. Patient was seen by Dr. Gonzalez earlier today regarding management of his hypertension. Continue medical management as per Dr. Gonzalez.
--- NOTE | 2019-08-08 09:21 | Consult Report ---
*Admission Date: 08/06/19 *Reason for consult:: HTN *History of present illness: 64-year-old male patient sitting up in bed Jama wrap and polar pack intact to right knee. He reports his pain is under control has been ambulating in home with walker without difficulty. No bowel movement since surgery, is urinating without difficulty Treatment per Ortho for uncemented total knee arthroplasty, right 08/06/2019 [facility] History Medical History: Reports:: Cancer (neck/ lymphnodes), Chronic Obstructive Pulmonary Disease (COPD), Gastroesophageal Reflux Disease(GERD), Hyperlipidemia, Hypertension, Lung Disease, MRSA, Seizures Denies:: Diabetes Mellitus Type 1, Diabetes Mellitus Type 2, Internal Pacemaker, Renal Disease *Have you ever received a pneumonia vaccine?: Yes *Have you received a flu vaccine this season?: Yes Other Medical History: Reports: Arthritis, Chemotherapy, Hypothyroidism, Radia tion Therapy. Denies: Blood Transfusion Reaction Anesthesia experience/problems:: No complications Laterality Cases: Left: ACL Repair, Right: Arthroscopy Shoulder, Bilateral: Arthroscopy Knee Other Surgeries: Yes: Cancer Surgery, Colonoscopy. No: Pacemaker Amputation: No Fractures: No - *Social History Educational Level: Attended College Smoking Status: Current every day smoker Tobacco Type: cigarettes # Packs/Day (cigarettes): 1 Alcohol Intake: never Substance Use Type: marijuana *Occupational Status:: disabled Housing: house Household Members: friend(s) *Travel in the last 8 weeks: None Family Hx:: Cancer Review of Systems - Constitutional Denies body ache(s), Denies fever(s) - Eyes Denies blurry vision, Denies double vision - ENT Denies bleeding gums, Denies headache(s) - *Cardiovascular Denies chest pain, Denies shortness of breath - *Respiratory Denies chest congestion, Denies cough - *Gastrointestinal Denies abdominal pain, Denies incontinent of stools - *Genitourinary Denies difficulty urinating, Denies painful urination - *Musculoskeletal Reports joint pain, Denies numbness - Integumentary/Breasts Denies hair loss, Denies non-healing lesions - *Neurologic Denies behavioral changes, Denies confusion, Denies headache(s), Denies lack of coordination - Psychiatric Denies lack of enjoyment, Denies anxiety - Endocrine Denies cold intolerance, Denies heat intolerance - Hematologic/Lymphatic Denies easy bleeding, Denies easy bruising - Allergic/Immunologic Denies lip swelling, Denies throat swelling Meds Home Medications Medication Instructions Recorded Confirmed Type atorvastatin 10 mg tablet 10 mg PO DAILY #90 tab 06/29/19 08/06/19 Rx gabapentin 400 mg capsule 400 mg PO TID #90 cap 07/24/19 08/06/19 Rx levothyroxine 75 mcg tablet 75 mcg PO DAILY #90 tab 07/24/19 08/06/19 Rx mupirocin 2 % topical ointment 1 applic TOPICAL BID 07/26/19 08/06/19 History Chlorhexidine Gluconate 1 applic TOPICAL ONCE 08/03/19 08/06/19 History Losartan Potassium 50 mg PO DAILY 08/03/19 08/06/19 History Pantoprazole Sodium [Protonix 40mg 40 mg PO DAILY 08/03/19 08/06/19 History tablet] Oxycodone HCl/Acetaminophen 1 tab PO TIDP PRN 08/06/19 08/06/19 History [Percocet 5/325mg tablet] Allergies Allergy/AdvReac Type Severity Reaction Status Date / Time Penicillins [PENICILLINS] Allergy Intermediate Rash/hives Verified 08/06/19 07:45 Exam Vital signs and Labs for Last 24 Hours: Temp Pulse Resp BP Pulse Ox 98.2 F 63 18 165/89 H 99 08/08/19 08:00 08/08/19 08:00 08/08/19 08:00 08/08/19 08:00 08/08/19 08:00 I & O for Last 24 hours: Intake & Output 08/05/19 08/06/19 08/07/19 08/08/19 23:59 23:59 23:59 23:59 Intake Total 2455 / 2695 4100 / 4100 600 / 600 Output Total 675 / 1575 2525 / 2525 Balance 1780 / 1120 1575 / 1575 600 / 600 Weight 222 lb 7 oz 217 lb 5 oz 221 lb 7 oz Microbiology Reports for the Last 24 Hours: Microbiology 08/06/19 11:25 Knee,Right - Other Gram Stain - Final 08/06/19 11:25 Knee,Right - Other Surgical Biopsy Culture - Preliminary NO GROWTH AFTER 24 HOURS - Constitutional no acute distress - *Routine HEENT Exam Head: Present: normocephalic, atraumatic. Absent: scalp tenderness, tenderness of temporal artery Eye: Present: EOMI, PERRL, normal accommodation. Absent: periorbital swelling ENT: Present: mucous membranes moist. Absent: sinus tenderness - *Routine Neck Exam Present: full ROM, tracheal deviation. Absent: JVD, trachea midline - *Routine Respiratory Exam Present: CTA bilaterally. Absent: accessory muscle use - *Routine Cardiovascular Exam Present: RRR - *Routine Abdominal Exam Present: soft, normoactive bowel sounds. Absent: tenderness, firm - *Routine Extremities Exam Present: pulses intact. Absent: calf tenderness - Routine Back/Spine/Pelvis Exam Back/Spine: Present: full ROM. Absent: CVA tenderness - *Routine Skin Exam Present: wounds Comments: Jama Wrap R Knee - *Routine Neurological Exam Present: alert, oriented X3, CN II-XII intact. Absent: altered mental status - Routine Psychiatric Exam Present: normal affect, normal thought process. Absent: suicidal ideation, auditory hallucinations Internal Medicine - CN: Reslt - Labs CBC & Chem 7: 08/07/19 06:11 08/07/19 06:11 Assessment and Plan (1) Primary osteoarthritis of right knee Current visit: Yes Status: Chronic Category: Medical Code(s): M17.11 - Unilateral primary osteoarthritis, right knee (2) History of total knee arthroplasty Current visit: Yes Status: Acute Category: Surgical Code(s): Z96.659 - Presence of unspecified artificial knee joint - Assessment and plan all Dx Assessment and Plan for all problems:: Rounded with Dr. Gonzalez, all orders per Dr. Gonzalez 1. We will continue to monitor hypertension 2. We will follow-up in office 2 weeks post discharge
--- NOTE | 2019-08-08 16:45 | Discharge Summary ---
General - General Admission date:: 08/06/19 Discharge date: 08/08/19 HPI HPI: Patient is a 64-year-old male with advanced degenerative joint disease of the right knee who is admitted to the hospital electively following an uncomplicated primary total knee arthroplasty on 08/06/2019. Prior to surgery patient had long-standing pain, stiffness and disability secondary to advanced degenerative arthritis in his right knee. He has not responded well to conservative management including NSAID, Tylenol, and intra-articular injections in the past. He is using assistive walking devices. Total knee arthroplasty is indicated to reduce the risk of falls, improve her pain and mobility and quality of life. His walking distance and ADLs are adversely affected; he also has history of night pain and sleep disturbance. The knee feels unstable and he is at risk of falling and injuring himself. A total knee arthroplasty is indicated to reduce the risk of falls, improve the pain, mobility and quality of life. The surgical and nonsurgical alternatives were discussed in detail with the patient as well as the risks and benefits of the surgery. Patient is fairly healthy and has a history of hypertension, hypothyroidism, right bundle branch block, toba tobacco buyer abuse, chronic kidney disease and metastatic neck cancer from unknown primary. Please refer to my office note for full details. Hospital Course Hospital Course: Patient underwent an uncomplicated straightforward uncemented primary right total knee arthroplasty on 08/06/2019. Following surgery patient was admitted to hospital and progressed well without any complications. The postoperative check x-ray was satisfactory with good alignment and fixation of the components. Patient progressed rapidly with physical therapy and was able to mobilize using a walker. After 2 days of hospital stay for observation, patient was discharged to home with home health on 08/08/2019. At the time of discharge he has regained good quadriceps control and is able to actively straight leg raise. Patient has minimal pain and his pain is well controlled with as needed oral medication. The incision is healthy and healing well. No signs of any erythema, induration or discharge noted. Patient was started on Xarelto 10 mg daily for DVT prophylaxis after surgery. The neurovascular status in both lower extremities is intact. Pedal pulses 2+ bilaterally and fully sensate distally. No clinical evidence of DVT noted. Patient was cleared for discharge by physical therapy. On the day of discharge, the patient has been stable. Patient's vital signs have been stable throughout and patient is afebrile at the time of discharge. He is being discharged home with home health. Condition at discharge: improved and stable. Treatments and Procedures: Total knee arthroplasty, right knee; date of surgery 08/06/2019. Objective Vital signs: Temp Pulse Resp BP Pulse Ox 98.2 F 63 18 165/89 H 99 08/08/19 08:00 08/08/19 08:00 08/08/19 08:00 08/08/19 08:00 08/08/19 08:00 no acute distress - *Routine HEENT Exam Head: Present: normocephalic, atraumatic Eye: Present: EOMI ENT: Present: mucous membranes moist - *Routine Neck Exam Present: supple, trachea midline - *Routine Respiratory Exam Present: CTA bilaterally - *Routine Cardiovascular Exam Present: RRR, Normal S1, Normal S2 - *Routine Abdominal Exam Present: soft, normoactive bowel sounds - *Routine Extremities Exam Comments: On examination of the lower extremities the limb lengths are equal. On examination of the right knee the incision is clean, dry and healthy. No signs of infection or other complications are noted. There is minimal swelling and ecchymosis around the knee as to be expected at this stage. Knee range of movements is [5 to 70] degrees of flexion. Patient has regained good quadriceps activation and is able to actively straight leg raise. Calf is soft and nontender. Distal pulses are 2+. Capillary refill is brisk. Sensation is intact to light touch throughout. Patient is actively moving the ankle, foot and the toes. No signs of DVT noted. - *Routine Skin Exam Present: intact, warm, normal turgor - *Routine Neurological Exam Present: alert, oriented X3 - Routine Psychiatric Exam Present: normal affect, cooperative Results Labs on day of discharge: Preliminary micro results at discharge 08/06/19 11:25 Surgical Biopsy Culture - Preliminary Knee,Right - Other NO GROWTH AFTER 24 HOURS DS: Diagnosis - Discharge Diagnosis (1) Primary osteoarthritis of right knee Status: Chronic (2) History of total knee arthroplasty Status: Acute Discharge Plan - Patient Discharge Instructions ACTIVITY: Continue current activity, Ambulate as tolerated DIET: regular diet Patient Instructions: Essential Hypertension, DI for Knee Replacement, DI for Surgical Site Infection, How to Use a Knee Immobilizer - Follow up Plan Follow up with: John Gonzalez MD [Primary Care Provider] - 08/22/19 10:45 am Glenn Cruz MD [Staff Physician] - 1 week (please call for appointment) Disposition: Home Health Service Home Medications: Home Medications Medication Instructions Recorded Confirmed Type atorvastatin 10 mg tablet 10 mg PO DAILY #90 tab 06/29/19 08/06/19 Rx gabapentin 400 mg capsule 400 mg PO TID #90 cap 07/24/19 08/06/19 Rx levothyroxine 75 mcg tablet 75 mcg PO DAILY #90 tab 07/24/19 08/06/19 Rx Losartan Potassium 50 mg PO DAILY 08/03/19 08/06/19 History Pantoprazole Sodium [Protonix 40mg 40 mg PO DAILY 08/03/19 08/06/19 History tablet] Ferrous Sulfate [Ferrous Sulfate 325 mg PO BID #120 tab 08/08/19 Rx 325mg Tablet] Oxycodone HCl/Acetaminophen 1 - 2 tab PO Q4HP PRN #60 tab 08/08/19 Rx [Percocet 5/325mg tablet] Rivaroxaban [Xarelto 10mg tablet] 10 mg PO QPMWM #14 tab 08/08/19 Rx Sennosides [Senokot 8.6mg tablet] 8.6 mg PO BIDP PRN #20 tab 08/08/19 Rx Prescriptions/Medication Reconciliation: New Ferrous Sulfate [Ferrous Sulfate 325mg Tablet] 325 mg PO BID #120 tab Rivaroxaban [Xarelto 10mg tablet] 10 mg PO QPMWM #14 tab Sennosides [Senokot 8.6mg tablet] 8.6 mg PO BIDP PRN #20 tab PRN Reason: Constipation Continued atorvastatin 10 mg tablet 10 mg PO DAILY #90 tab levothyroxine 75 mcg tablet 75 mcg PO DAILY #90 tab gabapentin 400 mg capsule 400 mg PO TID #90 cap Losartan Potassium 50 mg PO DAILY Pantoprazole Sodium [Protonix 40mg tablet] 40 mg PO DAILY Changed Oxycodone HCl/Acetaminophen [Percocet 5/325mg tablet] 1 - 2 tab PO Q4HP PRN #60 tab PRN Reason: pain Discontinued mupirocin 2 % topical ointment 1 applic TOPICAL BID Chlorhexidine Gluconate 1 applic TOPICAL ONCE - Problem Reconciliation Problems Reviewed?: Yes - Additional Information Additional Information: Our recommendations on discharge include physical therapy with weightbearing as tolerated and range of motion exercises of the right knee with emphasis on full extension and regaining flexion gradually. Patient will have home health and physical therapy. Note is made that the patient easily extends the knee to 0 degrees and flexes to 140 degrees while he was under anesthesia for the total knee arthroplasty with the wound closed. I have strongly advised him not to place any pillow behind the knee. But he can place a pillow under the ankle thus allowing gravity/weight of the leg help the knee into full extension. Patient was also advised to keep the leg elevated and ice the knee/use Polar pack on a regular basis. At this stage it is permissible to take a shower and allow the incision to get wet with shower water. After padding the area dry, the wound can be left open. Routine application of occlusive dressings is not needed unless clinically indicated. Patient has Dermabond Prineo dressing in place and we have given him information regarding how to manage it at home. Patient will follow up with me in the office in approximately 1 week for wound check and removal of the Dermabond Prineo dressing. Recommend 10 mg of Xarelto p.o. daily for 2 weeks for DVT prophylaxis. Please feel free to call our office at [phone] or via the hospital pulp operator [phone] for any orthopaedic questions or concerns.
== END 2019-08-08 17:13 | disposition home health service (06) ==
LOC: 2ND 07:19 → OR 07:19 → 2ND 13:47
PROVIDERS: ADMIT Orthopaedic Surgery; ATTEND Orthopaedic Surgery
CPT/HCPCS: 36415; 73560; 80048; 80305; 81001; 85007; 85025; 87070; 87205; 88305; 96374; 97116; 97162; 97166; 97535; C1776; G0378; J2704; J3370

== ENCOUNTER → 2019-09-11 14:36 | Outpatient (CLI) | payer MEDICARE, SELFPAY ==
--- NOTE | 2019-09-11 14:40 | XR_ITS ---
PROCEDURE: XR KNEE RT 2V CLINICAL INDICATION: sp RT TKA, dos 08/06/2019 Follow-up total knee replacement COMPARISON: XR KNEE RT 3V from 03/31/2019 XR KNEE RT 4V from 05/10/2019 XR KNEE RT 4V from 07/31/2019 XR KNEE RT 2V from 08/06/2019 FINDINGS: Good alignment status post total knee replacement. Postsurgical gas no longer apparent. No obvious complications. Other findings:None. IMPRESSION: Status post total knee replacement with good alignment Dictated by: Joe Sam MD 09/11/2019 16:05 Electronically signed by Joe Sam MD in [place] 09/11/2019 16:05
[2019-09-11 21:03] LABS: Amphetamine/Metha Screen,Urine Negative ng/ml (<1000)
[2019-09-11 21:04] LABS: Barbiturates Screen,Urine Negative ng/ml (<200); Benzodiazepines Screen,Urine Negative ng/ml (<200)
[2019-09-11 21:05] LABS: Cannabinoid Screen,Urine Positive ng/ml (<50)
[2019-09-11 21:06] LABS: Cocaine Screen,Urine Negative ng/ml (<300); Methadone Screen,Urine Negative ng/ml (<300)
[2019-09-11 21:07] LABS: Opiate Screen,Urine Negative ng/ml (<300); Phencyclidine Screen,Urine Negative ng/ml (<25)
[2019-09-28 17:51] LABS: Opiates NEGATIVE
== END ==
PROVIDERS: PCP Emergency Medicine; Visit Provider Emergency Medicine
DX: Z09 Encounter for follow-up examination after completed treatment for conditions other than malignant neoplasm (principal); Z96.659 Presence of unspecified artificial knee joint; Z79.899 Other long term (current) drug therapy
CPT/HCPCS: 73560; 80305; 80361; 80365; G0480

== ENCOUNTER → 2019-09-11 17:11 | Outpatient (CLI) | payer MEDICARE, SELFPAY | PROVIDERS: Visit Provider Emergency Medicine | DX: Z79.899 Other long term (current) drug therapy (principal); M25.561 Pain in right knee; Z96.651 Presence of right artificial knee joint; Z09 Encounter for follow-up examination after completed treatment for conditions other than malignant neoplasm | CPT/HCPCS: 73560; 80305; 80361; 80365; G0480 ==

== ENCOUNTER → 2019-09-12 12:27 | Outpatient (CLI) | payer MEDICARE, SELFPAY ==
[2019-09-12 13:16] LABS: Basophils # 0.1 K/mm3 (0-0.2); Basophils % 0.7 % (0.1-2.0); Eosinophils # 0.1 K/mm3 (0.0-0.4); Eosinophils % 1.8 % (0.1-12.0); Hematocrit 39.1 % (42.0-52.0); Hemoglobin 12.3 g/dL (14.1-18.0); Lymphocytes # 1.2 K/mm3 (0.7-4.5); Lymphocytes % 17.9 % (10-50); Mean Corpuscular HGB Conc 31.4 g/dL (31.8-35.4); Mean Corpuscular Hemoglobin 28.5 pg (27.0-31.2); Mean Corpuscular Volume 90.9 fl (80-94); Mean Platelet Volume 8.2 fl (7.4-10.4); Monocytes # 0.2 K/mm3 (0.1-1.0); Monocytes % 3.1 % (1.7-9.3); Neutrophils % 76.4 % (37.0-80.0); Platelet Count 258 K/mm3 (142-424); Red Cell Distribution Width 15.7 % (11.5-17.5); White Blood Count 6.5 K/mm3 (4.8-10.8)
[2019-09-12 13:47] LABS: Anion Gap 14.2 mEq/L (5-15); Blood Urea Nitrogen 24 mg/dl (9-20); Calcium 9.6 mg/dl (8.4-10.2); Carbon Dioxide 24 mmol/L (22.0-30.0); Chloride 103 mmol/L (98-107); Estimated Glomerular Filt Rate 56 ml/min (>60); GFR (African American) 68 ML/MIN (>60); Glucose 128 mg/dl (74-100); Potassium 4.2 mmoL/L (3.5-5.1); Sodium 137 mmol/L (136-145)
== END ==
PROVIDERS: Visit Provider Orthopaedic Surgery
DX: Z01.818 Encounter for other preprocedural examination (principal); M25.561 Pain in right knee
CPT/HCPCS: 36415; 80048; 85025

== ENCOUNTER → 2019-11-13 08:52 | Outpatient (CLI) | payer MEDICARE, SELFPAY ==
--- NOTE | 2019-11-13 08:56 | XR_ITS ---
PROCEDURE: XR KNEE RT 2V CLINICAL INDICATION: sp RT knee manipulation, dos 09/17/2019 Follow-up total knee replacement COMPARISON: XR KNEE RT 4V from 05/10/2019 XR KNEE RT 4V from 07/31/2019 XR KNEE RT 2V from 08/06/2019 XR KNEE RT 2V from 09/11/2019 FINDINGS: Total knee prosthesis is present with good alignment. No evidence of orthopedic complication. Other findings:No lytic or blastic change IMPRESSION: Good alignment status post total knee replacement Dictated by: Joe Sam MD 11/13/2019 13:59 Electronically signed by Joe Sam MD in [place] 11/13/2019 13:59
== END ==
PROVIDERS: PCP Emergency Medicine; Visit Provider Orthopaedic Surgery
DX: T84.89XA Other specified complication of internal orthopedic prosthetic devices, implants and grafts, initial encounter; Z09 Encounter for follow-up examination after completed treatment for conditions other than malignant neoplasm; Z96.651 Presence of right artificial knee joint; M25.661 Stiffness of right knee, not elsewhere classified
CPT/HCPCS: 73560

== ENCOUNTER 2019-12-20 18:04 | Emergency (ER) | payer MEDICARE, SELFPAY ==
[2019-12-20 18:05] VITALS: BP 110/65; PULSE 69; RESP 16; TEMP 36.7; O2SAT 98; BMI 30.4
--- NOTE | 2019-12-20 18:22 | HMH.EDGENADL ---
ED Disposition Condition on Discharge: Good - Critical Care Critical Care Time: No <Kyle Faith - Last Filed: 12/20/19 20:02> <John Gonzalez - Last Filed: 12/20/19 20:57> Clinical Impression: CKD (chronic kidney disease) stage 3, GFR 30-59 ml/min Altered mental status Qualifiers: Altered mental status type: somnolence Qualified Code(s): R40.0 - Somnolence Disposition: Home, Self-Care Additional Instructions: see pcp tuesday and take half of blood pressure med Referrals: John Gonzalez MD [Primary Care Provider] - Attestation: On 12/20/19, the high probability of a clinically significant, sudden or life threatening deterioration of the following system(s) required my full and direct attention, intervention and personal management. The time I documented below is in addition to time spent performing reported procedures but includes the following listed in this critical care notation. Medical Decision Making - Medical Records Medical records reviewed: Yes: I reviewed the patient's medical records. - [place] Inquiry Pt receiving controlled substance: No - Lab Data Lab results reviewed: Yes: I reviewed the patient's lab results. Result diagrams: 12/20/19 18:30 12/20/19 18:30 - CT Data CT Scan: Head Time Received: 19:21 ([facility] fax) ED CT Reviewed: Yes: I have viewed the radiologist's interpretation - Physician Consults Physician Consulted: Carlos - present Time: 20:04 Reason -: Pt condition Comment/Response: advised that son wants to talk to him before patient released - Reevaluation(s) Time: 19:48 <Kyle Faith - Last Filed: 12/20/19 20:02> - Lab Data Result diagrams: 12/20/19 18:30 12/20/19 18:30 <John Gonzalez - Last Filed: 12/20/19 20:57> Vital Signs: 12/20/19 18:05 12/20/19 18:50 12/20/19 19:24 Temperature 98.1 F Temperature Source Oral Pulse Rate [Left Radial] 69 59 L 59 L Respiratory Rate 16 Blood Pressure [Right Arm] 110/65 108/65 L 95/60 L Blood Pressure Mean [Right Arm] 80 79 71 Blood Pressure Source [Right Arm] Automatic Cuff Blood Pressure Position [Right Arm] Sitting Supine 02 Sat by Pulse Oximetry 98 95 Oxygen Delivery Method Room Air Room Air 12/20/19 19:57 Temperature Temperature Source Pulse Rate [Left Radial] 61 Respiratory Rate 16 Blood Pressure [Right Arm] 130/76 Blood Pressure Mean [Right Arm] 94 Blood Pressure Source [Right Arm] Automatic Cuff Blood Pressure Position [Right Arm] Sitting 02 Sat by Pulse Oximetry 98 Oxygen Delivery Method Room Air - Lab Data Lab Results 12/20/19 18:13: Urine Color Yellow, Urine Appearance Clear, Urine pH 6.0, Ur Specific [place] 1.020, Urine Protein Negative, Urine Glucose (UA) Negative, Urine Ketones Negative, Urine Blood Negative, Urine Nitrate Negative, Urine Bilirubin Negative, Urine Urobilinogen 0.2, Ur Leukocyte Esterase Negative, Urine WBC Occasional, Ur Squamous Epith Cells Occasional, Urine Bacteria Trace 12/20/19 18:30: WBC 5.8, RBC 4.11 L, Hgb 12.3 L, Hct 38.0 L, MCV 92.5, MCH 30.0, MCHC 32.5, RDW 14.9, Plt Count 192, MPV 8.8, Neut % (Auto) 63.5, Lymph % (Auto) 26.5, [place] % (Auto) 5.9, Eos % (Auto) 3.5, Baso % (Auto) 0.6, Neut # (Auto) 3.7, Lymph # (Auto) 1.5, [place] # (Auto) 0.3, Eos # (Auto) 0.2, Baso # (Auto) 0.0 12/20/19 18:30: Sodium 136, Potassium 4.2, Chloride 103, Carbon Dioxide 30, Anion Gap 7.2, BUN 29 H, Creatinine 1.50 H, Estimated Creat Clear 69, Estimated GFR 47 L, Est GFR ( Amer) 57 L, Glucose 109 H, Calcium 9.0, Total Bilirubin 0.4, AST 15 L, ALT 10 L, Alkaline Phosphatase 82, Troponin I < 0.01, Total Protein 6.8, Albumin 4.0, Globulin 2.8, Albumin/Globulin Ratio 1.4 12/20/19 18:30: Urine Opiates Screen Positive H, Urine Methadone Screen Negative, Ur Barbituates Screen Negative, Ur Phencyclidine Scrn Negative, Ur Amphetamines Screen Negative, U Benzodiazepines Scrn Negative, Urine Cocaine Screen Negative, U Marijuana (THC) Screen Positive H 12/20/19 18:30: Plasma/Se
[2019-12-20 18:35] LABS: Microscopic, Urine URINE MICROSCOPIC (MICROSCOPIC)
[2019-12-20 18:38] LABS: Appearance,Urine CLEAR (Clear); Bilirubin,Urine Negative (Negative); Blood, Urine Negative (Negative); Color,Urine YELLOW (Yellow); Glucose,Urine (UA) Negative (Negative); Ketones,Urine Negative (Negative); Leukocyte Esterase,Urine Negative (Negative); Nitrate,Urine Negative (Negative); Protein,Urine Negative (Negative); Urobilinogen,Urine 0.2 EU/dl (0.2)
[2019-12-20 18:38] LABS: Basophils % 0.6 % (0.1-2.0); Eosinophils # 0.2 K/mm3 (0.0-0.4); Eosinophils % 3.5 % (0.1-12.0); Hemoglobin 12.3 g/dL (14.1-18.0); Lymphocytes # 1.5 K/mm3 (0.7-4.5); Lymphocytes % 26.5 % (10-50); Mean Corpuscular HGB Conc 32.5 g/dL (31.8-35.4); Mean Corpuscular Volume 92.5 fl (80-94); Mean Platelet Volume 8.8 fl (7.4-10.4); Monocytes # 0.3 K/mm3 (0.1-1.0); Monocytes % 5.9 % (1.7-9.3); Neutrophils # 3.7 K/mm3 (1.8-7.8); Neutrophils % 63.5 % (37.0-80.0); Platelet Count 192 K/mm3 (142-424); Red Blood Count 4.11 M/mm3 (4.60-6.20); Red Cell Distribution Width 14.9 % (11.5-17.5); White Blood Count 5.8 K/mm3 (4.8-10.8)
[2019-12-20 18:44] LABS: Bacteria,Urine Trace /lpf; Squamous Epithelial Cell,Urine Occasional #/hpf (0-5); WBC,Urine Occasional #/hpf (0-3)
[2019-12-20 18:44] LABS: Chloride 103 mmol/L (98-107); Potassium 4.2 mmoL/L (3.5-5.1); Sodium 136 mmol/L (136-145)
--- NOTE | 2019-12-20 18:45 | CT_ITS ---
PROCEDURE: CT HEAD/BRAIN WO CON CLINICAL INDICATION: AMS Altered mental status, altered level of consciousness, confusion, disorientation COMPARISON: CT HEAD/BRAIN WO CON from 03/31/2019 TECHNIQUE: Axial images obtained. All CT scans at the facility use one or more dose reduction, viz: automated exposure control, ma/kV adjustment per patient size (including targeted exams where dose is matched to indication, i.e. head), or iterative reconstruction technique. FINDINGS: No midline shift, mass effect, intracranial hemorrhage, hydrocephalus, or extra-axial fluid collection is evident. Encephalomalacia changes are present involving the right occipital lobe. Mild periventricular ischemic gliotic changes noted. The calvarium has an unremarkable appearance. Small amount fluid is present in the right mastoid sinus mucous retention cyst is present in the right maxillary sinus at 2 cm IMPRESSION: No change with no acute finding. Chronic changes with encephalomalacia in the right occipital lobe with mild periventricular ischemic gliotic change. Dictated by: Joe Sam MD 12/20/2019 22:33 Electronically signed by Joe Sam MD in [place] 12/20/2019 22:33
[2019-12-20 18:46] LABS: Blood Urea Nitrogen 29 mg/dl (9-20); Creatinine Clearance Estimated 69 mL/min (50-200); Estimated Glomerular Filt Rate 47 ml/min (>60); GFR (African American) 57 ML/MIN (>60)
[2019-12-20 18:47] LABS: Alanine Aminotransferase 10 U/L (12-78); Albumin/Globulin Ratio 1.4 (1.1-1.8); Alkaline Phosphatase 82 U/L (38-126); Anion Gap 7.2 mEq/L (5-15); Aspartate Amino Transferase 15 U/L (17-59); Bilirubin,Total 0.4 mg/dl (0.2-1.3); Carbon Dioxide 30 mmol/L (22.0-30.0); Globulin 2.8 g/dL (1.3-3.2); Glucose 109 mg/dl (74-100); Total Protein,Serum 6.8 g/dl (6.3-8.2)
--- NOTE | 2019-12-20 18:49 | ECG_ITS ---
APPROVED REPORT Exam: Resting ECG HR:58 bpm ECG Measurements Heart Rate 58 AXES CA 172 P 38 QRSd 124 QRS -6 QT 410 T 38 QTc 402 <Conclusion> Sinus bradycardia Nonspecific intraventricular conduction delay Borderline ECG Electronically signed by : Toney Harris, 12/22/2019 14:16:58
[2019-12-20 18:50] VITALS: BP 108/65; PULSE 59
--- NOTE | 2019-12-20 19:05 | PC.NURSE ---
pt return from radiology at this time
--- NOTE | 2019-12-20 19:05 | PC.NURSE ---
received report from sterling vigil
--- NOTE | 2019-12-20 19:08 | PC.NURSE ---
pt ambulated to the bathroom independently. tolerated well.
[2019-12-20 19:18] LABS: Troponin I < 0.01 ng/ml (0.00-0.034)
[2019-12-20 19:24] VITALS: BP 95/60; PULSE 59; O2SAT 95
[2019-12-20 19:24] LABS: Ethyl Alcohol < 10 mg/dl (0-10)
[2019-12-20 19:25] LABS: Acetaminophen < 10 ug/ml (10-30)
[2019-12-20 19:27] LABS: Barbiturates Screen,Urine Negative ng/ml (<200); Benzodiazepines Screen,Urine Negative ng/ml (<200)
[2019-12-20 19:28] LABS: Amphetamine/Metha Screen,Urine Negative ng/ml (<1000)
[2019-12-20 19:29] LABS: Cannabinoid Screen,Urine Positive ng/ml (<50); Methadone Screen,Urine Negative ng/ml (<300)
[2019-12-20 19:30] LABS: Cocaine Screen,Urine Negative ng/ml (<300)
[2019-12-20 19:31] LABS: Opiate Screen,Urine Positive ng/ml (<300); Phencyclidine Screen,Urine Negative ng/ml (<25)
[2019-12-20 19:57] VITALS: BP 130/76; PULSE 61; RESP 16; O2SAT 98
[2019-12-20 21:20] VITALS: BP 141/77; PULSE 62; O2SAT 96
[2019-12-20 22:04] VITALS: BP 121/73; PULSE 85; RESP 17; TEMP 36.7; O2SAT 99
== END 2019-12-20 21:48 | disposition home or self-care (01) ==
PROVIDERS: Emergency Provider Emergency Medicine; PCP Emergency Medicine
DX: N18.3 Chronic kidney disease, stage 3 (moderate) (principal); J44.9 Chronic obstructive pulmonary disease, unspecified; I10 Essential (primary) hypertension; K21.9 Gastro-esophageal reflux disease without esophagitis; F12.10 Cannabis abuse, uncomplicated; E78.5 Hyperlipidemia, unspecified; F17.210 Nicotine dependence, cigarettes, uncomplicated; Z88.0 Allergy status to penicillin; Z79.899 Other long term (current) drug therapy
CPT/HCPCS: 70450; 80053; 80305; 80329; 81001; 84443; 84484; 85025; 93005; 93225; 93226; 96365; 99284

== ENCOUNTER → 2020-04-04 10:43 | Outpatient (CLI) | payer MEDICARE, SELFPAY ==
[2020-04-04 11:35] LABS: Basophils # 0.1 K/mm3 (0-0.2); Basophils % 0.9 % (0.1-2.0); Eosinophils # 0.1 K/mm3 (0.0-0.4); Eosinophils % 1.4 % (0.1-12.0); Hematocrit 38.4 % (42.0-52.0); Lymphocytes # 1.3 K/mm3 (0.7-4.5); Lymphocytes % 15.5 % (10-50); Mean Corpuscular HGB Conc 33.8 g/dL (31.8-35.4); Mean Corpuscular Hemoglobin 31.8 pg (27.0-31.2); Mean Corpuscular Volume 94.2 fl (80-94); Mean Platelet Volume 7.7 fl (7.4-10.4); Monocytes # 0.4 K/mm3 (0.1-1.0); Monocytes % 4.5 % (1.7-9.3); Neutrophils # 6.6 K/mm3 (1.8-7.8); Neutrophils % 77.7 % (37.0-80.0); Platelet Count 281 K/mm3 (142-424); Red Blood Count 4.07 M/mm3 (4.60-6.20); Red Cell Distribution Width 14.6 % (11.5-17.5); White Blood Count 8.4 K/mm3 (4.8-10.8)
[2020-04-04 12:14] LABS: Alanine Aminotransferase 11 U/L (12-78); Albumin Level 4.4 g/dl (3.5-5.0); Albumin/Globulin Ratio 1.5 (1.1-1.8); Alkaline Phosphatase 101 U/L (38-126); Anion Gap 10.2 mEq/L (5-15); Aspartate Amino Transferase 18 U/L (17-59); Bilirubin,Total 0.5 mg/dl (0.2-1.3); Blood Urea Nitrogen 25 mg/dl (9-20); Calcium 9.9 mg/dl (8.4-10.2); Carbon Dioxide 29 mmol/L (22.0-30.0); Chloride 104 mmol/L (98-107); Estimated Glomerular Filt Rate 75 ml/min (>60); GFR (African American) 91 ML/MIN (>60); Globulin 2.9 g/dL (1.3-3.2); Glucose 116 mg/dl (74-100); Potassium 4.2 mmoL/L (3.5-5.1); Sodium 139 mmol/L (136-145); Total Protein,Serum 7.3 g/dl (6.3-8.2)
== END ==
PROVIDERS: Visit Provider Internal Medicine Medical Oncology
DX: Z01.818 Encounter for other preprocedural examination (principal)
CPT/HCPCS: 36415; 80053; 85025

== ENCOUNTER → 2020-04-07 08:56 | Outpatient (CLI) | payer MEDICARE, SELFPAY ==
--- NOTE | 2020-04-07 09:04 | CT_ITS ---
PROCEDURE: CT SOFT TISSUE NECK W CON CLINICAL HISTORY: H/O HEAD/NECK CA COMPARISON: CT NECKW CT SOFT TISSUE NECK W/CONTRAST from 05/20/2017 TECHNIQUE: Oral Contrast: None IV Contrast: 75 mL Optiray 350 performed in conjunction with the chest and abdomen CT Axial images obtained with sagittal and coronal reformats. All CT scans at the facility use one or more dose reduction, viz: automated exposure control, ma/kV adjustment per patient size (including targeted exams where dose is matched to indication, i.e. head), or iterative reconstruction technique. FINDINGS: Status post right neck surgery with resection of the right submandibular gland, sternocleidomastoid, and jugular vein. There is some thickening of the subcutaneous soft tissues in the right carotid region consistent with scarring. No adenopathy. No evidence of recurrence mass or abnormal fluid collection. The epiglottis and glottic region are unremarkable. The nasopharynx the has an unremarkable appearance. No thyroid enlargement. Lung apices are clear. IMPRESSION: Postsurgical changes of the neck on the right. There is some mild thickening of the soft tissues in the area of resection which may be related to scar tissue. Please correlate with physical exam. Otherwise negative. No recurrence mass or adenopathy Dictated by: Joe Sam MD 04/08/2020 12:33 Jeo Sam MD in [place] 04/08/2020 12:33
--- NOTE | 2020-04-07 09:04 | CT_ITS ---
PROCEDURE: CT ABDOMEN PELVIS W CON CLINICAL INDICATION: H/O HEAD/NECK CA Follow-up head neck cancer COMPARISON: CT ABDPELWO CT abdomen pelvis wo con from 11/23/2017 TECHNIQUE: IV Contrast: 75ML OPTIRAY 350 Oral Contrast None Axial images obtained with sagittal and coronal reformats. All CT scans at the facility use one or more dose reduction, viz: automated exposure control, ma/kV adjustment per patient size (including targeted exams where dose is matched to indication, i.e. head), or iterative reconstruction technique. FINDINGS: LOWER THORAX: No acute finding. Coronary artery calcifications. ABDOMEN & PELVIS: There is a 5 mm hypodense nodule in the left hepatic lobe superiorly segment 2 not significantly changed. May be due to small cyst. The liver has an otherwise unremarkable appearance.. The spleen, pancreas, and adrenal glands are unremarkable. There is a large left renal cyst which measures 10 cm. There are few small right renal cyst. There is mild somewhat heterogeneous and irregular thickening of the antrum of the stomach. This could be inflammatory or neoplastic. Consider upper endoscopy for further evaluation.. There is also thickening small bowel loops including the proximal jejunum as well as small bowel loops in the right lower quadrant.. There is mild thickening of the sigmoid colon nonspecific. There is colonic diverticulosis but no evidence of diverticulitis.. No evidence of appendicitis. The degenerative changes are noted in the thoracic and lumbar spine IMPRESSION: 1. Heterogeneous and irregular thickening of the antrum of the stomach which could be inflammatory/infectious or neoplastic. Suggest upper endoscopy for further evaluation. 2. Mild diffuse thickening of the jejunum as well as bowel loops in the mid and right lower quadrant consistent with enteritis. Dictated by: Joe Sam MD 04/08/2020 12:22 Joe Sam MD in [place] 04/08/2020 12:22
--- NOTE | 2020-04-07 09:04 | CT_ITS ---
PROCEDURE: CT CHEST W CON CLINCAL INDICATION: H/O HEAD/NECK CA Follow-up head neck cancer COMPARISON: No exams were available for comparison TECHNIQUE: IV Contrast: 75ml Optiray 350 Axial images obtained with sagittal and coronal reformats. All CT scans at the facility use one or more dose reduction, viz: automated exposure control, ma/kV adjustment per patient size (including targeted exams where dose is matched to indication, i.e. head), or iterative reconstruction technique. FINDINGS: Status post resection of the right sternocleidomastoid muscle. No mediastinal or hilar mass or adenopathy. Coronary artery calcifications are present. COPD with centrilobular emphysema and scattered areas of scarring. There is some minimal ground-glass opacity in the left lung base with mild atelectatic change. No suspicious pulmonary nodules are identified. No effusions or infiltrates. No acute bony anomalies. There is slightly elevated left hemidiaphragm. Please see abdomen report for upper abdominal findings. There is some thickening of the antrum of the stomach which could be inflammatory or neoplastic. Suggest upper endoscopy for further evaluation. There is a large left renal cyst. IMPRESSION: 1. COPD/centrilobular emphysema with scattered fibrotic changes and minimal elevation of left hemidiaphragm with mild left basilar atelectasis. 2. Coronary artery calcification. 3. Irregular thickening of the antrum of the stomach which could be neoplastic or inflammatory. Recommend upper endoscopy for further evaluation Dictated by: Joe Sam MD 04/08/2020 14:34 Joe Sam MD in [place] 04/08/2020 14:34
== END ==
PROVIDERS: PCP Emergency Medicine; Visit Provider Internal Medicine Medical Oncology
DX: Z85.89 Personal history of malignant neoplasm of other organs and systems (principal)
CPT/HCPCS: 70491; 71260; 74177; Q9967

== ENCOUNTER 2020-04-19 04:49 | Emergency (ER) | payer MEDICARE, SELFPAY ==
--- NOTE | 2020-04-19 04:55 | XR_ITS ---
PROCEDURE: XR KNEE RT 3V CLINICAL INDICATION: knee pain COMPARISON: CR XR KNEE RT 2V from 11/13/2019 FINDINGS: The femoral component of the total knee prosthesis is in good alignment and apposition to the tibial plateau component. There is no evidence of loosening of either component. The metallic plug undersurface of the patella is stable. There is no definite effusion. Other findings:None. IMPRESSION: No acute findings. Dictated by: Dr. Donn Schuster MD 04/19/2020 07:53 Dr. Donn Schuster MD in [place] 04/19/2020 07:53
--- NOTE | 2020-04-19 04:57 | XR_ITS ---
PROCEDURE: XR TOE RT MIN 2V CLINICAL INDICATION: rt pinky toe pain. pt hit toe COMPARISON: No exams were available for comparison FINDINGS: There is a transverse fracture through the distal shaft of the proximal phalanx little toe. The 5th metatarsals intact. There is apparent fusion of the middle and distal phalanx of the little toe a common variation. IMPRESSION: Nondisplaced transverse fracture proximal phalanx little toe Dictated by: Dr. Donn Schuster MD 04/19/2020 07:55 Dr. Donn Schuster MD in [place] 04/19/2020 07:55
[2020-04-19 04:58] VITALS: BP 96/51; PULSE 91; RESP 16; TEMP 36.5; O2SAT 99; BMI 30.8
--- NOTE | 2020-04-19 05:13 | HMH.EDLOEX ---
ED Disposition Clinical Impression: Acute internal derangement of knee Qualifiers: Laterality: right Qualified Code(s): M23.91 - Unspecified internal derangement of right knee Fracture of toe Qualifiers: Encounter type: initial encounter Toe: lesser toe Fracture type: closed Phalanx: proximal Fracture alignment: nondisplaced Laterality: right Qualified Code(s): S92.514A - Nondisplaced fracture of proximal phalanx of right lesser toe(s), initial encounter for closed fracture Disposition: Home, Self-Care Condition on Discharge: Good Instructions: DI for Toe Fracture Additional Instructions: ice and call ortho tuesday and also podiatry Referrals: John Gonzalez MD [Primary Care Provider] - Estela Baker DPM [Staff Physician] - - Critical Care Critical Care Time: No Attestation: On 04/19/20, the high probability of a clinically significant, sudden or life threatening deterioration of the following system(s) required my full and direct attention, intervention and personal management. The time I documented below is in addition to time spent performing reported procedures but includes the following listed in this critical care notation. Medical Decision Making - Medical Records Medical records reviewed: Yes: I reviewed the patient's medical records. - [place] Inquiry Pt receiving controlled substance: No Vital Signs: 04/19/20 04:58 Temperature 97.7 F Temperature Source Oral Pulse Rate [Right] 91 H Respiratory Rate 16 Blood Pressure [Right Arm] 96/51 L Blood Pressure Mean [Right Arm] 66 Blood Pressure Source [Right Arm] Automatic Cuff Blood Pressure Position [Right Arm] Sitting 02 Sat by Pulse Oximetry 99 Oxygen Delivery Method Room Air - Lab Data Lab results reviewed: Yes: I reviewed the patient's lab results. Orders (Tests/Meds): ORDERS Category Date Time Status XR knee RT 3V Stat Exams 04/19/20 04:55 Taken XR toe RT min 2V Stat Exams 04/19/20 04:57 Taken - Radiology Data #1 Image(s): Knee, Foot/Toes Image Reviewed: Yes I reviewed the patient's radiology image Preliminary Findings: Abnormal (toe fx seen ) Lower Extremity Injury HPI - General Chief Complaint: Extremity Injury, Lower Stated Complaint: Pain in Rt knee;Fell on Wednesday 04/18 @1900 Time Seen by Provider: 04/19/20 05:05 Mode of Arrival: Ambulatory Source of Information: Patient, Medical Record Limitations: No Limitations Description of Symptoms (Recalled from ER Triage Doc. by RN): Pt has right knee and right 5th toe pain for a few days after falling to his knee - History of Present Illness HPI Narrative: injury rt knee and fifth toe as he slipped on grass last pm - had knee replacement rt knee MD complaint: knee injury Onset (ago): hour(s) Injury: Right: knee, toes Type of Injury: eversion Place: home Severity: moderate Context: fall Associated symptoms: swelling Other symptoms: none - Related Data Home Medications Medication Instructions Recorded Confirmed Pantoprazole Sodium [Protonix 40mg 40 mg PO DAILY 08/03/19 04/17/20 tablet] Ferrous Sulfate [Ferrous Sulfate 325 mg PO BID 09/14/19 04/17/20 325mg Tablet] Previous Rx's Medication Instructions Recorded atorvastatin 10 mg tablet 10 mg PO DAILY #90 tab 06/29/19 levothyroxine 75 mcg tablet 75 mcg PO DAILY #90 tab 02/11/20 losartan 100 1 tab PO DAILY #30 tab 02/11/20 mg-hydrochlorothiazide 25 mg tablet sodium,potassium,mag sulfates 17.5 See Rx Instructions PO .COMPLEX 04/09/20 gram-3.13 gram-1.6 gram oral soln #177 ml gabapentin 400 mg capsule 400 mg PO TID #90 cap 04/11/20 oxycodone-acetaminophen 5 mg-325 1 tab PO TID PRN #90 tab 04/11/20 mg tablet Allergies Allergy/AdvReac Type Severity Reaction Status Date / Time Penicillins [PENICILLINS] Allergy Intermediate Rash/hives Verified 04/17/20 14:16 Penicillins Allergy Intermediate Rash Uncoded 04/17/20 14:16 [facility] History - Hepatitis A Screen Drug use history?: No
[2020-04-19 05:35] VITALS: BP 105/61; PULSE 85; RESP 16; TEMP 36.6; O2SAT 97
== END 2020-04-19 05:37 | disposition home or self-care (01) ==
PROVIDERS: Emergency Provider Emergency Medicine; PCP Emergency Medicine
DX: M23.91 Unspecified internal derangement of right knee (principal); S92.514A Nondisplaced fracture of proximal phalanx of right lesser toe(s), initial encounter for closed fracture; W01.0XXA Fall on same level from slipping, tripping and stumbling without subsequent striking against object, initial encounter; Y92.017 Garden or yard in single-family (private) house as the place of occurrence of the external cause; I10 Essential (primary) hypertension; E78.5 Hyperlipidemia, unspecified; K21.9 Gastro-esophageal reflux disease without esophagitis; J44.9 Chronic obstructive pulmonary disease, unspecified; F17.210 Nicotine dependence, cigarettes, uncomplicated; Z88.0 Allergy status to penicillin
CPT/HCPCS: 73562; 73660; 96372; 99282

== ENCOUNTER → 2020-04-29 10:31 | Outpatient (CLI) | payer MEDICARE, SELFPAY ==
[2020-04-29 13:24] LABS: Coronavirus 19 IgG Antibody Negative (Negative); Coronavirus 19 IgM Antibody Negative (Negative)
== END ==
PROVIDERS: Visit Provider Surgery
DX: Z01.89 Encounter for other specified special examinations (principal); S92.911A Unspecified fracture of right toe(s), initial encounter for closed fracture
CPT/HCPCS: 36415; 86328

== ENCOUNTER 2020-05-01 07:23 | Day surgery (SDC) | payer MEDICARE, SELFPAY ==
[2020-04-29 13:22] VITALS: BMI 30.7
[2020-05-01] VITALS (7 sets, daily range): BP systolic 84–109; BP diastolic 46–62; PULSE 55–66; RESP 16–18; TEMP 36.8; O2SAT 92–100
--- NOTE | 2020-05-01 08:36 | HMH.ANESCL ---
[facility] Anesthesia Checklist - Patient Identification Patient Identification: Arm Band, Verbal (Name & ) - Structural Data Admitted From: Home Planned Operative Procedure/s: egd/colon Consent for Planned Operative Procedure(s) Verified: Yes Verified Documents: History and Physical - NPO Status Verified Time NPO: 00:00 - Chart Verification Results Verified: CBC, BMP - Additional verifications Patient : No Anesthesia Reactions: No Hx Blood Transfusions: No Blood Transfusion Reaction: No Cephalosporin Allergy: No Previous Colonoscopy: Yes - Cardiovascular Assessment Heart Sounds: S1 & S2 Pulse Strength: Baseline Pulse Rhythm: Regular Peripheral Edema: No - Airway Assessment C-Spine Mobility Assessed: Yes TMJ Mobility Assessed: Yes Dentition: Edentulous - Neurological Assessment Level of Consciousness: Awake, Alert, Appropriate Hx Seizures: No Numbness or tingling in extremities: No - Anesthesia Plan Anesthesia Risk discussed: Yes Anesthesia Plan: Verified ASA Class: III Anesthesia Type: MAC [facility] History I have reviewed the patient's past medical history: Yes Medical History: Reports:: Cancer, Chronic Obstructive Pulmonary Disease (COPD), Gastroesophageal Reflux Disease(GERD), Hyperlipidemia, Hypertension, Lung Disease, MRSA Denies:: Diabetes Mellitus Type 1, Diabetes Mellitus Type 2, Internal Pacemaker, Renal Disease, Seizures *Have you ever received a pneumonia vaccine?: Yes *Have you received a flu vaccine this season?: Yes Other Medical History: Reports: Anemia, Arthritis, Chemotherapy, Hypothyroidism, Radiation Therapy. Denies: Blood Transfusion Reaction Anesthesia experience/problems:: none Laterality Cases: Left: ACL Repair, Right: Arthroscopy Shoulder, Total Knee Replacement, Bilateral: Arthroscopy Knee Other Surgeries: Yes: Cancer Surgery, Colonoscopy. No: Pacemaker Amputation: No Fractures: No - *Social History Last grade of school completed: Some college Smoking Status: Current every day smoker Tobacco Type: cigarettes # Packs/Day (cigarettes): 1 Alcohol Intake: never Substance Use Type: marijuana *Occupational Status:: disabled Housing: house Household Members: significant other *Travel in the last 8 weeks: None Family Hx:: Cancer
--- NOTE | 2020-05-01 09:40 | HMH.SCOPE ---
- Procedure: Date: 05/01/20 Patient Date of :: 1955 Procedure Performed:: Esophagogastroduodenoscopy with biopsy Colonoscopy with polypectomy by means other than snare Indications:: Abnormal CT of abdomen (thickening of antrum) History of colon polyps Performing Provider:: Mal Wlaler MD Referring Provider:: . Sedation:: Monitored anesthesia care Procedure:: After informed consent was obtained the patient was taken to the endoscopy suite. Sedation ensued after the patient was transferred to the left lateral decubitus position. Pulse, blood pressure, and oxygen saturation were monitored throughout the procedure. The endoscope was advanced beyond the duodenal bulb. Retroflexion within the gastric lumen was accomplished. The gastroscope was carefully removed. Digital rectal exam revealed no significant abnormality. The colonoscope was placed in position. The entire colon was evaluated. The colonoscope was carefully removed and the patient was transferred to recovery in stable condition. Please see findings and specimens below for detail. Findings:: Complex lobulated antral ulcer with deep fibrinous base Bowel preparation moderate Significant spasticity and lack of relaxation Scattered diverticulosis Polyps (see specimens) Specimens:: Multiple biopsies of complex lobulated antral ulcer Colon polyp at 55 cm Colon polyp at 15 cm Recommendations:: Proton pump inhibition Carafate Repeat EGD in 6-8 weeks Timing of repeat colonoscopy is pending pathology but will likely be around 2 years secondary to moderate bowel preparation and spasticity/lack of relaxation. Complications:: No immediate Estimated blood obtained (mL): 1
== END 2020-05-01 10:29 | disposition home or self-care (01) ==
LOC: OUTP 07:24
PROVIDERS: PCP Emergency Medicine; Visit Provider Surgery
PROC: 0DJ08ZZ Inspection of Upper Intestinal Tract, Via Natural or Artificial Opening Endoscopic (ICD-10-PCS; CPT 43235; principal; 2020-05-01 08:30)
DX: K63.5 Polyp of colon (principal); K57.30 Diverticulosis of large intestine without perforation or abscess without bleeding; K56.2 Volvulus; Z86.010 Personal history of colon polyps; J44.9 Chronic obstructive pulmonary disease, unspecified; K21.9 Gastro-esophageal reflux disease without esophagitis; E78.5 Hyperlipidemia, unspecified; I10 Essential (primary) hypertension; Z86.14 Personal history of Methicillin resistant Staphylococcus aureus infection; Z85.9 Personal history of malignant neoplasm, unspecified; D64.9 Anemia, unspecified; M19.90 Unspecified osteoarthritis, unspecified site
CPT/HCPCS: 43239; 45380; 88305

== ENCOUNTER 2020-05-02 11:50 | Outpatient (RCR) | payer MEDICARE, SELFPAY | END 2020-05-02 12:15 | disposition home or self-care (01) | LOC: PT 11:50 | PROVIDERS: Visit Provider Orthopaedic Surgery | DX: M25.561 Pain in right knee (principal) ==

== ENCOUNTER → 2020-06-10 17:31 | Outpatient (CLI) | payer MEDICARE, SELFPAY ==
[2020-06-10 19:11] LABS: Free T4 (Free Thyroxine) 1.15 ng/dl (0.78-2.19)
[2020-06-10 19:29] LABS: Thyroid Stimulating Hormone 3.78 uIU/mL (0.465-4.68)
== END ==
PROVIDERS: Visit Provider Emergency Medicine
DX: E03.9 Hypothyroidism, unspecified (principal)
CPT/HCPCS: 84439; 84443

== ENCOUNTER → 2020-06-24 14:19 | Outpatient (CLI) | payer MEDICARE, SELFPAY ==
[2020-06-24 16:01] LABS: Coronavirus 19 IgG Antibody Negative (Negative); Coronavirus 19 IgM Antibody Negative (Negative)
== END ==
PROVIDERS: Visit Provider Surgery
DX: Z01.818 Encounter for other preprocedural examination (principal); Z03.818 Encounter for observation for suspected exposure to other biological agents ruled out; Z13.810 Encounter for screening for upper gastrointestinal disorder; K25.9 Gastric ulcer, unspecified as acute or chronic, without hemorrhage or perforation
CPT/HCPCS: 36415; 86328

== ENCOUNTER 2020-06-26 07:55 | Day surgery (SDC) | payer MEDICARE, SELFPAY ==
[2020-06-24 13:47] VITALS: BMI 31.5
[2020-06-26 08:08] VITALS: BP 190/93; PULSE 70; RESP 18; TEMP 36.5; O2SAT 99
--- NOTE | 2020-06-26 08:19 | P.PN_ITS ---
[facility] Anesthesia Checklist - Patient Identification Patient Identification: Arm Band, Verbal (Name & ) - Structural Data Admitted From: Home Planned Operative Procedure/s: egd Consent for Planned Operative Procedure(s) Verified: Yes Verified Documents: History and Physical - NPO Status Verified Time NPO: 00:00 - Additional verifications Patient : No Anesthesia Reactions: No Hx Blood Transfusions: No Blood Transfusion Reaction: No Cephalosporin Allergy: No Previous Colonoscopy: No - Cardiovascular Assessment Heart Sounds: S1 & S2 Pulse Strength: Baseline Pulse Rhythm: Regular Peripheral Edema: No - Airway Assessment C-Spine Mobility Assessed: Yes TMJ Mobility Assessed: Yes Dentition: Edentulous - Neurological Assessment Level of Consciousness: Awake, Alert, Appropriate Hx Seizures: No Numbness or tingling in extremities: No - Anesthesia Plan Anesthesia Risk discussed: Yes Anesthesia Plan: Verified ASA Class: I Anesthesia Type: MAC [facility] History I have reviewed the patient's past medical history: Yes Medical History: Reports:: Cancer (neck), Chronic Obstructive Pulmonary Disease (COPD), Gastroesophageal Reflux Disease(GERD), Hyperlipidemia, Hypertension, Lung Disease Denies:: Diabetes Mellitus Type 1, Diabetes Mellitus Type 2, Internal Pacemaker, MRSA, Renal Disease, Seizures *Have you ever received a pneumonia vaccine?: Yes *Have you received a flu vaccine this season?: Yes Other Medical History: Reports: Anemia, Arthritis, Chemotherapy, Hypothyroidism, Radiation Therapy. Denies: Blood Transfusion Reaction Anesthesia experience/problems:: none Laterality Cases: Left: ACL Repair, Right: Arthroscopy Shoulder, Bilateral: Arthroscopy Knee Other Surgeries: Yes: Cancer Surgery, Colonoscopy. No: Pacemaker Amputation: No Fractures: No - *Social History Last grade of school completed: Some college Smoking Status: Current every day smoker Tobacco Type: cigarettes # Packs/Day (cigarettes): 1 Alcohol Intake: never Substance Use Type: marijuana *Occupational Status:: disabled Housing: house Household Members: significant other *Travel in the last 8 weeks: None Family Hx:: Cancer
[2020-06-26 08:25] VITALS: O2SAT 99
[2020-06-26 08:37] VITALS: BP 131/71; PULSE 68; RESP 18; TEMP 36.7; O2SAT 97
--- NOTE | 2020-06-26 08:38 | HMH.SCOPE ---
- Procedure: Date: 06/26/20 Patient Date of :: 1955 Procedure Performed:: Esophagogastroduodenoscopy with biopsy Indications:: Large complex antral ulceration Performing Provider:: Mal Waller MD Referring Provider:: . Sedation:: Monitored anesthesia care Procedure:: After informed consent was obtained the patient was taken to the endoscopy suite. Sedation ensued after the patient was transferred to the left lateral decubitus position. Pulse, blood pressure, and oxygen saturation were monitored throughout the procedure. The endoscope was advanced beyond the duodenal bulb. Retroflexion within the gastric lumen was accomplished. The gastroscope was carefully removed and the patient was transferred to recovery in stable condition. Please see findings and specimens below for detail. Findings:: Large complex antral ulceration noted; however, overall size and depth improved versus prior evaluation Specimens:: Multiple biopsies of antral ulceration margin Recommendations:: Continue current medical therapy for peptic ulcer disease Repeat esophagogastroduodenoscopy in 6-8 weeks Follow-up pathology Complications:: No immediate Estimated blood obtained (mL): 1
[2020-06-26 08:47] VITALS: BP 141/77; PULSE 65; RESP 18; TEMP 36.7; O2SAT 95
[2020-06-26 08:57] VITALS: BP 151/75; PULSE 61; RESP 18; TEMP 36.7; O2SAT 96
[2020-06-26 09:15] VITALS: BP 163/79; PULSE 61; RESP 18; TEMP 36.7; O2SAT 97
== END 2020-06-26 09:15 | disposition home or self-care (01) ==
LOC: OUTP 07:56
PROVIDERS: PCP Emergency Medicine; Visit Provider Surgery
PROC: 0DJ08ZZ Inspection of Upper Intestinal Tract, Via Natural or Artificial Opening Endoscopic (ICD-10-PCS; CPT 43235; principal; 2020-06-26 09:00)
DX: K25.7 Chronic gastric ulcer without hemorrhage or perforation (principal); K31.89 Other diseases of stomach and duodenum; J44.9 Chronic obstructive pulmonary disease, unspecified; K21.9 Gastro-esophageal reflux disease without esophagitis; E78.5 Hyperlipidemia, unspecified; I10 Essential (primary) hypertension; Z72.0 Tobacco use
CPT/HCPCS: 43239; 88305

== ENCOUNTER → 2020-07-22 18:03 | Outpatient (CLI) | payer MEDICARE, SELFPAY ==
[2020-07-22 18:27] LABS: Basophils # 0.1 K/mm3 (0-0.2); Basophils % 0.7 % (0.1-2.0); Eosinophils # 0.1 K/mm3 (0.0-0.4); Eosinophils % 1.2 % (0.1-12.0); Hematocrit 36.1 % (42.0-52.0); Hemoglobin 12.1 g/dL (14.1-18.0); Lymphocytes # 0.8 K/mm3 (0.7-4.5); Lymphocytes % 11.1 % (10-50); Mean Corpuscular HGB Conc 33.7 g/dL (31.8-35.4); Mean Corpuscular Hemoglobin 30.1 pg (27.0-31.2); Mean Corpuscular Volume 89.5 fl (80-94); Mean Platelet Volume 9.4 fl (7.4-10.4); Monocytes # 0.4 K/mm3 (0.1-1.0); Monocytes % 5.2 % (1.7-9.3); Neutrophils # 5.6 K/mm3 (1.8-7.8); Neutrophils % 81.7 % (37.0-80.0); Platelet Count 264 K/mm3 (142-424); Red Blood Count 4.03 M/mm3 (4.60-6.20); Red Cell Distribution Width 15.5 % (11.5-17.5); White Blood Count 6.9 K/mm3 (4.8-10.8)
[2020-07-22 18:39] LABS: Alanine Aminotransferase 13 U/L (12-78); Albumin Level 4.1 g/dl (3.5-5.0); Albumin/Globulin Ratio 1.4 (1.1-1.8); Alkaline Phosphatase 90 U/L (38-126); Anion Gap 13.1 mEq/L (5-15); Aspartate Amino Transferase 19 U/L (17-59); Bilirubin,Total 0.5 mg/dl (0.2-1.3); Blood Urea Nitrogen 29 mg/dl (9-20); Calcium 9.8 mg/dl (8.4-10.2); Carbon Dioxide 26 mmol/L (22.0-30.0); Chloride 104 mmol/L (98-107); Estimated Glomerular Filt Rate 51 ml/min (>60); GFR (African American) 62 ML/MIN (>60); Globulin 2.9 g/dL (1.3-3.2); Glucose 155 mg/dl (74-100); Potassium 5.1 mmoL/L (3.5-5.1); Sodium 138 mmol/L (136-145)
[2020-07-23 15:44] LABS: Hemoglobin A1C 5.7 % (4.0-6.0)
== END ==
PROVIDERS: Visit Provider Emergency Medicine
DX: R53.83 Other fatigue (principal); R73.09 Other abnormal glucose
CPT/HCPCS: 80053; 83036; 85025

== ENCOUNTER → 2020-08-08 10:17 | Outpatient (CLI) | payer MEDICARE, SELFPAY ==
--- NOTE | 2020-08-08 10:17 | CA_ITS ---
APPROVED REPORT EXAM: Comprehensive 2D, Doppler, and color-flow Echocardiogram Transitional Studies Instructor: Kait Romero, RT(R) Ht: 5 ft 4 in Wt: 240lbs BSA: 2.11 BP: 175/91 mmHg Indications: MURMUR,COPD,SMOKER,HLD,HTN,RBBB,GERD 2D Dimensions LVOT 2.21 cm (M/F) 1.5-2.5 M-Mode Dimensions RVDd 2.89 cm (0.9-2.6) LA Diam 3.65 cm (1.9-4.0) LVDd 4.46 cm (3.5-5.7) Ao Diam 3.71 cm (2.0-3.7) LVDs 3.05 cm (3.5-5.7) IVSd 0.96 cm (0.6-1.1) PWd 0.60 cm (0.6-1.1) EF (Teich) 59.80% FS 31.60% EDV (Teich) 90.50 mL ESV (Teich) 36.40 mL LV Diastology E Decel Time 373.00 (160-240 msec) E/A Ratio 0.7 MED E' 7.10 (< 7 cm/sec) E'/MED E' Ratio 8.08 (>14) LAT E' 9.80 (<10 cm/sec) E/LAT E' Ratio 5.86 (>14) Mitral Valve MV E Max Giorgio. 57.00 (40-130 cm/s) MV A Velocity 79.00 (40-130 cm/s) E/A Ratio 0.72 MV Decel. Time 373.00 (160-240 ms) MV PHT 109.00 ms Pulmonary Valve PV Peak Velocity 110.00 (50-150 cm/s) Tricuspid Valve TR P. Velocity 147.00 cm/s RAP Estimate 10.00 mmHg RVSP 18.70 mmHg Left Ventricle Left atrium is mildly enlarged, left ventricle is normal size, mild concentric left ventricular hypertrophy, visually estimated ejection fraction 55% with no regional wall motion abnormality, grade 1 diastolic dysfunction seen without tissue Doppler evidence of raise left atrial pressure. Right Ventricle Right atrium and right ventricle are normal size and contractility. Aortic Valve Aortic valve is minimally thickened and fibrosed, there is no aortic stenosis or aortic insufficiency. Mitral Valve Mitral valve is grossly normal, there is trace mitral regurgitation. Tricuspid Valve Tricuspid valve is grossly normal, there is trace tricuspid regurgitation, tricuspid regurgitation jet velocity is inadequate for calculation of the right ventricular systolic pressure. Pulmonic Valve Pulmonic valve is poorly visualized. Great Vessels Aortic root is normal size. Pericardium No significant pericardial effusion noted. Conclusion 1. Mildly enlarged left atrium, normal left ventricular size, mild concentric left ventricular hypertrophy, visually estimated ejection fraction 55% with no regional wall motion abnormality, grade 1 diastolic dysfunction seen without tissue Doppler evidence of raise left atrial pressure. 2. Minimally thickened and calcified aortic valve without aortic stenosis or aortic insufficiency. 3. Trace mitral and tricuspid regurgitation. 4. No significant pericardial effusion noted. Electronically signed by : Efren Vincent, 08/08/2020 12:13:46
--- NOTE | 2020-08-08 10:49 | XR_ITS ---
PROCEDURE: XR KNEE RT 2V CLINICAL INDICATION: sp right knee TKA manipulation COMPARISON: CR XR KNEE RT 2V from 08/06/2019 DX XR KNEE RT 2V from 09/11/2019 CR XR KNEE RT 2V from 11/13/2019 CR XR KNEE RT 3V from 04/19/2020 FINDINGS: No fracture or dislocation. No lytic or blastic change. There is normal mineralization. Good alignment status post total knee replacement. No evidence of orthopedic complication. No acute fracture or dislocation. No lytic or blastic change. Other findings:None. IMPRESSION: Good alignment status post total knee replacement. No evidence of orthopedic complication. Dictated by: Joe Sam MD 08/08/2020 11:28 Joe Sam MD in [place] 08/08/2020 11:28
== END ==
PROVIDERS: PCP Emergency Medicine; Visit Provider Emergency Medicine
DX: I10 Essential (primary) hypertension (principal); R01.1 Cardiac murmur, unspecified; Z96.659 Presence of unspecified artificial knee joint; M25.561 Pain in right knee
CPT/HCPCS: 73560; 93306

== ENCOUNTER → 2020-08-12 18:56 | Outpatient (CLI) | payer MEDICARE, SELFPAY ==
[2020-08-12 21:02] LABS: Barbiturates Screen,Urine Negative ng/ml (<200)
[2020-08-12 21:03] LABS: Benzodiazepines Screen,Urine Negative ng/ml (<200)
[2020-08-12 21:04] LABS: Amphetamine/Metha Screen,Urine Negative ng/ml (<1000); Cocaine Screen,Urine Negative ng/ml (<300)
[2020-08-12 21:05] LABS: Methadone Screen,Urine Negative ng/ml (<300)
[2020-08-12 21:06] LABS: Cannabinoid Screen,Urine Positive ng/ml (<50); Opiate Screen,Urine Positive ng/ml (<300)
[2020-08-12 21:07] LABS: Phencyclidine Screen,Urine Negative ng/ml (<25)
== END ==
PROVIDERS: Visit Provider Emergency Medicine
DX: M25.471 Effusion, right ankle (principal); M25.472 Effusion, left ankle; Z79.899 Other long term (current) drug therapy
CPT/HCPCS: 80305

== ENCOUNTER → 2020-08-19 11:44 | Outpatient (CLI) | payer MEDICARE, SELFPAY ==
[2020-08-19 14:22] LABS: Coronavirus 19 IgG Antibody Negative (Negative); Coronavirus 19 IgM Antibody Negative (Negative)
== END ==
PROVIDERS: Visit Provider Surgery
DX: Z01.812 Encounter for preprocedural laboratory examination (principal); Z20.822 Contact with and (suspected) exposure to COVID-19; Z13.810 Encounter for screening for upper gastrointestinal disorder; K25.3 Acute gastric ulcer without hemorrhage or perforation
CPT/HCPCS: 36415; 86328

== ENCOUNTER 2020-08-21 09:27 | Day surgery (SDC) | payer MEDICARE, SELFPAY ==
[2020-08-18 13:02] VITALS: BMI 33.0
[2020-08-21 09:42] VITALS: BP 160/90; PULSE 60; RESP 18; TEMP 36.5; O2SAT 98
[2020-08-21 10:13] VITALS: O2SAT 97
--- NOTE | 2020-08-21 10:24 | HMH.SCOPE ---
- Procedure: Date: 08/21/20 Patient Date of :: 1955 Procedure Performed:: Esophagogastroduodenoscopy with biopsy Indications:: Acute prepyloric ulcer Performing Provider:: Mal Waller MD Referring Provider:: . Sedation:: Monitored anesthesia care Procedure:: After informed consent was obtained the patient was taken to the endoscopy suite. Sedation ensued after the patient was transferred to the left lateral decubitus position. Pulse, blood pressure, and oxygen saturation were monitored throughout the procedure. The endoscope was advanced beyond the duodenal bulb. Retroflexion within the gastric lumen was accomplished. The gastroscope was carefully removed and the patient was transferred to recovery in stable condition. Please see findings and specimens below for detail. Findings:: Prepyloric ulceration healed Persistent inflammatory changes at site of prior ulceration Specimens:: Biopsies of inflammatory changes at site of prior prepyloric/antral ulceration Recommendations:: Follow-up pathology Continue proton pump inhibition Complications:: No immediate Estimated blood obtained (mL): 1
[2020-08-21 10:25] VITALS: BP 87/51; PULSE 54; RESP 16; TEMP 36.7; O2SAT 100
[2020-08-21 10:35] VITALS: BP 116/71; PULSE 55; RESP 16; TEMP 36.7; O2SAT 98
[2020-08-21 10:45] VITALS: BP 134/65; PULSE 57; RESP 16; TEMP 36.7; O2SAT 100
--- NOTE | 2020-08-21 10:54 | HMH.ANESCL ---
[facility] Anesthesia Checklist - Structural Data Admitted From: Home Planned Operative Procedure/s: egd Consent for Planned Operative Procedure(s) Verified: Yes - Additional verifications Anesthesia Reactions: No Hx Blood Transfusions: No Blood Transfusion Reaction: No - Airway Assessment C-Spine Mobility Assessed: Yes TMJ Mobility Assessed: Yes Dentition: Poor Dentition - Neurological Assessment Level of Consciousness: Awake, Alert, Appropriate - Anesthesia Plan Anesthesia Risk discussed: Yes Anesthesia Plan: Verified ASA Class: III Anesthesia Type: MAC [facility] History I have reviewed the patient's past medical history: Yes Medical History: Reports:: Cancer (squamos cell), Chronic Obstructive Pulmonary Disease (COPD), Gastroesophageal Reflux Disease(GERD), Hyperlipidemia, Hypertension, Lung Disease Denies:: Diabetes Mellitus Type 1, Diabetes Mellitus Type 2, Internal Pacemaker, MRSA, Renal Disease, Seizures *Have you ever received a pneumonia vaccine?: Yes *Have you received a flu vaccine this season?: Yes Other Medical History: Reports: Anemia, Arthritis, Chemotherapy, Hypothyroidism, Radiation Therapy. Denies: Blood Transfusion Reaction Anesthesia experience/problems:: none Laterality Cases: Left: ACL Repair, Right: Arthroscopy Shoulder, Total Knee Replacement, Bilateral: Arthroscopy Knee Other Surgeries: Yes: Cancer Surgery, Colonoscopy, EGD. No: Pacemaker Amputation: No Fractures: No - *Social History Last grade of school completed: High school graduate Smoking Status: Current every day smoker Tobacco Type: cigarettes # Packs/Day (cigarettes): 1 Alcohol Intake: never Substance Use Type: marijuana *Occupational Status:: disabled Housing: house Household Members: significant other *Travel in the last 8 weeks: None Family Hx:: Cancer
[2020-08-21 10:55] VITALS: BP 142/64; PULSE 56; RESP 16; TEMP 36.7; O2SAT 100
== END 2020-08-21 10:55 | disposition home or self-care (01) ==
LOC: OUTP 09:31
PROVIDERS: PCP Emergency Medicine; Visit Provider Surgery
PROC: 0DJ08ZZ Inspection of Upper Intestinal Tract, Via Natural or Artificial Opening Endoscopic (ICD-10-PCS; CPT 43235; principal; 2020-08-21 10:30)
DX: K31.89 Other diseases of stomach and duodenum (principal); Z01.818 Encounter for other preprocedural examination; Z85.9 Personal history of malignant neoplasm, unspecified; J44.9 Chronic obstructive pulmonary disease, unspecified; K21.9 Gastro-esophageal reflux disease without esophagitis; I10 Essential (primary) hypertension; E78.5 Hyperlipidemia, unspecified; M19.90 Unspecified osteoarthritis, unspecified site; D64.9 Anemia, unspecified; E03.9 Hypothyroidism, unspecified; Z72.0 Tobacco use; Z88.0 Allergy status to penicillin
CPT/HCPCS: 43239; 88305

== ENCOUNTER → 2020-09-09 16:41 | Outpatient (CLI) | payer MEDICARE, SELFPAY ==
[2020-09-10 08:56] LABS: Amphetamine/Metha Screen,Urine Negative ng/ml (<1000)
[2020-09-10 08:57] LABS: Barbiturates Screen,Urine Negative ng/ml (<200); Benzodiazepines Screen,Urine Negative ng/ml (<200)
[2020-09-10 08:58] LABS: Methadone Screen,Urine Negative ng/ml (<300)
[2020-09-10 08:59] LABS: Cannabinoid Screen,Urine Positive ng/ml (<50); Cocaine Screen,Urine Negative ng/ml (<300)
[2020-09-10 09:00] LABS: Opiate Screen,Urine Positive ng/ml (<300)
[2020-09-10 09:01] LABS: Phencyclidine Screen,Urine Negative ng/ml (<25)
== END ==
PROVIDERS: Visit Provider Emergency Medicine
DX: G89.29 Other chronic pain (principal); M25.561 Pain in right knee
CPT/HCPCS: 80305

== ENCOUNTER → 2020-09-16 07:53 | Outpatient (CLI) | payer MEDICARE, SELFPAY ==
--- NOTE | 2020-09-16 07:53 | US_ITS ---
PROCEDURE: US GALLBLADDER CLINICAL INDICATION: abdominal pain COMPARISON: No exams were available for comparison FINDINGS: Pancreas: Unremarkable/Not well seen Liver: Unremarkable. There is appropriate direction of blood flow within a non dilated portal vein. Right kidney: Small renal cyst at 1 cm Gallbladder: Gallbladder is contracted with mildly thickened wall. No gallstones apparent. No pericholecystic fluid or biliary dilatation. IMPRESSION: Contracted gallbladder with mild thickening of the gallbladder wall. No gallstones apparent. Dictated by: Joe Sam MD 09/16/2020 18:09 Joe Sam MD in [place] 09/16/2020 18:09
== END ==
PROVIDERS: PCP Emergency Medicine; Visit Provider Emergency Medicine
DX: R10.9 Unspecified abdominal pain (principal)
CPT/HCPCS: 76705

== ENCOUNTER → 2020-10-02 10:09 | Outpatient (CLI) | payer MEDICARE, SELFPAY ==
--- NOTE | 2020-10-02 10:09 | NM_ITS ---
PROCEDURE: NM HEPATOBILIARY W PHARM CLINICAL INDICATION: abd pain COMPARISON: No exams were available for comparison TECHNIQUE: DOSE: 8.31 mCi technetium Choletec FINDINGS: Homogeneous activity is present within the hepatic parenchyma. Activity is present in the gallbladder by 20 minutes. Activity is present in the small bowel by 30 minutes. The gallbladder ejection fraction is calculated to be 89 percent. Patient drank Ensure for a fatty meal without complaints IMPRESSION: Unremarkable hepatobiliary scan with normal gallbladder ejection fraction Dictated by: Joe Sam MD 10/03/2020 09:23 Joe Sam MD in [facility] 10/03/2020 09:23
== END ==
PROVIDERS: PCP Emergency Medicine; Visit Provider Emergency Medicine
DX: R10.9 Unspecified abdominal pain (principal)
CPT/HCPCS: 78227; A9537

== ENCOUNTER → 2020-11-07 13:45 | Outpatient (CLI) | payer MEDICARE, SELFPAY ==
[2020-11-07 14:19] LABS: Amphetamine/Metha Screen,Urine Negative ng/ml (<1000); Barbiturates Screen,Urine Negative ng/ml (<200)
[2020-11-07 14:20] LABS: Benzodiazepines Screen,Urine Negative ng/ml (<200)
[2020-11-07 14:21] LABS: Cannabinoid Screen,Urine Positive ng/ml (<50); Cocaine Screen,Urine Negative ng/ml (<300)
[2020-11-07 14:22] LABS: Methadone Screen,Urine Negative ng/ml (<300); Opiate Screen,Urine Positive ng/ml (<300)
[2020-11-07 14:23] LABS: Phencyclidine Screen,Urine Negative ng/ml (<25)
== END ==
PROVIDERS: Visit Provider Emergency Medicine
DX: Z79.899 Other long term (current) drug therapy (principal)
CPT/HCPCS: 80305

== ENCOUNTER → 2020-11-18 14:53 | Outpatient (CLI) | payer MEDICARE, SELFPAY ==
[2020-11-18 15:32] LABS: Basophils % 0.6 % (0.1-2.0); Eosinophils # 0.2 K/mm3 (0.0-0.4); Eosinophils % 3.1 % (0.1-12.0); Hematocrit 36.5 % (42.0-52.0); Hemoglobin 12.1 g/dL (14.1-18.0); Lymphocytes # 1.1 K/mm3 (0.7-4.5); Lymphocytes % 19.7 % (10-50); Mean Corpuscular HGB Conc 33.2 g/dL (31.8-35.4); Mean Corpuscular Hemoglobin 29.1 pg (27.0-31.2); Mean Corpuscular Volume 87.5 fl (80-94); Mean Platelet Volume 7.5 fl (7.4-10.4); Monocytes # 0.3 K/mm3 (0.1-1.0); Monocytes % 4.7 % (1.7-9.3); Neutrophils # 3.9 K/mm3 (1.8-7.8); Neutrophils % 71.9 % (37.0-80.0); Platelet Count 246 K/mm3 (142-424); Red Blood Count 4.17 M/mm3 (4.60-6.20); Red Cell Distribution Width 14.7 % (11.5-17.5); White Blood Count 5.4 K/mm3 (4.8-10.8)
--- NOTE | 2020-11-18 15:51 | ECG_ITS ---
APPROVED REPORT Exam: Resting ECG HR:63 bpm ECG Measurements Heart Rate 63 AXES NJ 166 P 36 QRSd 140 QRS -23 QT 422 T 12 QTc 431 Conclusion Normal sinus rhythm Right bundle branch block Voltage criteria for left ventricular hypertrophy Abnormal ECG Electronically signed by : Toney Harris, 11/19/2020 16:57:35
[2020-11-18 16:34] LABS: Anion Gap 11.8 mEq/L (5-15); Blood Urea Nitrogen 24 mg/dl (9-20); Calcium 9.4 mg/dl (8.4-10.2); Carbon Dioxide 24 mmol/L (22.0-30.0); Chloride 105 mmol/L (98-107); Estimated Glomerular Filt Rate 47 ml/min (>60); GFR (African American) 57 ML/MIN (>60); Glucose 114 mg/dl (74-100); Potassium 4.8 mmoL/L (3.5-5.1); Sodium 136 mmol/L (136-145)
[2020-11-18 16:51] LABS: Coronavirus 19 IgG Antibody Negative (Negative); Coronavirus 19 IgM Antibody Negative (Negative)
== END ==
PROVIDERS: Visit Provider Otolaryngology
DX: Z01.812 Encounter for preprocedural laboratory examination (principal); Z20.822 Contact with and (suspected) exposure to COVID-19; L57.0 Actinic keratosis; I10 Essential (primary) hypertension
CPT/HCPCS: 36415; 80048; 85025; 86328; 93005

== ENCOUNTER 2020-11-20 09:01 | Day surgery (SDC) | payer MEDICARE, SELFPAY ==
[2020-11-18 10:33] VITALS: BMI 47.7
[2020-11-20] VITALS (10 sets, daily range): BP systolic 111–177; BP diastolic 72–93; PULSE 60–72; RESP 16–18; TEMP 36.4–43; O2SAT 94–99
--- NOTE | 2020-11-20 11:32 | P.PN_ITS ---
[facility] Anesthesia Checklist - Patient Identification Patient Identification: Arm Band - Structural Data Admitted From: Home Planned Operative Procedure/s: excision of lesions left nose, right eyelid Consent for Planned Operative Procedure(s) Verified: Yes Verified Documents: Surgical Consent, History and Physical - NPO Status Verified Time NPO: 00:00 - Additional verifications Anesthesia Reactions: No Hx Blood Transfusions: No Blood Transfusion Reaction: No - Airway Assessment C-Spine Mobility Assessed: Yes (mp2) TMJ Mobility Assessed: Yes Dentition: Edentulous - Neurological Assessment Level of Consciousness: Awake, Alert - Anesthesia Plan Anesthesia Risk discussed: Yes Anesthesia Plan: Verified ASA Class: III Anesthesia Type: General [facility] History I have reviewed the patient's past medical history: Yes Medical History: Reports:: Cancer (neck ca), Chronic Obstructive Pulmonary Disease (COPD), Gastroesophageal Reflux Disease(GERD), Hyperlipidemia, Hypertension, Lung Disease Denies:: Diabetes Mellitus Type 1, Diabetes Mellitus Type 2, Internal Pacemaker, MRSA, Renal Disease, Seizures *Have you ever received a pneumonia vaccine?: Yes *Have you received a flu vaccine this season?: Yes Other Medical History: Reports: Anemia, Arthritis, Chemotherapy, Hypothyroidism, Radiation Therapy. Denies: Blood Transfusion Reaction Anesthesia experience/problems:: nac Laterality Cases: Left: ACL Repair, Right: Arthroscopy Shoulder, Partial Knee Replacement, Bilateral: Arthroscopy Knee Other Surgeries: Yes: Cancer Surgery, Colonoscopy, EGD. No: Pacemaker Amputation: No Fractures: No - *Social History Last grade of school completed: Some college Smoking Status: Current every day smoker Tobacco Type: cigarettes # Packs/Day (cigarettes): 1 Alcohol Intake: never Substance Use Type: marijuana *Occupational Status:: disabled Housing: house Household Members: significant other *Travel in the last 8 weeks: None Family Hx:: Cancer
--- NOTE | 2020-11-20 11:33 | P.PN_ITS ---
[facility] Anesthesia Record Part I Intake, IV Amount: 900 Estimated blood loss (mL): 5 Urine output (mL): 0 Blood Pressure: 113/72 SaO2: 95 Pulse Rate: 72 Respiratory Rate: 16 Temperature: 97.5 F Patient is:: Drowsy, Stable Stable to PACU at:: 11:30
--- NOTE | 2020-11-20 11:42 | HMH.OPNOTE ---
Date of procedure: 11/20/20 Pre-op Diagnosis:: 1. Neoplasm right lower eyelid 1 cm 2. Neoplasm left side of the nose 2.8 cm Post-op Diagnosis:: same Procedure performed:: 1. Excision of neoplasm right lower eyelid 2. Excision of neoplasm left side of nose 2.8 cm with tissue rearrangement Z-plasty repair Surgeon:: Carloz Day MD [employer] HELPER:: Tip Ma Anesthesia: GETA Estimated blood loss (mL): 2 Operative findings:: same Operative note:: With the patient under general anesthetic the face was prepped and draped. There was a lesion on the right lower eyelid and using the tenotomy scissors it was removed in entirety and submitted. The base was touched with bipolar cautery. There was no bleeding. The lesion on the left side of the nose was marked out it measured 2.8 cm markup was incised and the lesion was excised and submitted. Bleeding was less than 2 cc and stopped with bipolar cautery. Inferior and superior incisions were made and a tissue rearrangement Z-plasty repair was done with interrupted 3-0 nylon sutures.A dot dressing was applied and the patient was sent to recovery in good general general condition. Condition: stable Disposition: PACU Complications:: none
--- NOTE | 2020-11-21 09:28 | P.PN_ITS ---
[facility] Anesthesia Record Part II Discharge Time: 12:00 Destination: Surgical Day Care (OP Surgery) PACU nurse assessment reviewed?: Yes Patient Condition:: Good Anesthesia Complications:: None Swallowing reflex intact?: Yes Cyanosis?: No Blood Pressure: 133/88 Pulse Rate: 60 Temperature: 97.5 F Mental Status: Alert & Oriented Pain level:: 0 Nausea and/or vomitting:: None Intake, IV Amount: 0
[2020-11-21 09:29] VITALS: BP 133/88; PULSE 60; TEMP 36.4
== END 2020-11-20 12:31 | disposition home or self-care (01) ==
LOC: OR 09:03
PROVIDERS: PCP Emergency Medicine; Visit Provider Otolaryngology
DX: L57.0 Actinic keratosis; L82.1 Other seborrheic keratosis; Z85.89 Personal history of malignant neoplasm of other organs and systems; J44.9 Chronic obstructive pulmonary disease, unspecified; K21.9 Gastro-esophageal reflux disease without esophagitis; E78.5 Hyperlipidemia, unspecified; I10 Essential (primary) hypertension; M19.90 Unspecified osteoarthritis, unspecified site; E03.9 Hypothyroidism, unspecified; D64.9 Anemia, unspecified; Z87.39 Personal history of other diseases of the musculoskeletal system and connective tissue; Z92.21 Personal history of antineoplastic chemotherapy
CPT/HCPCS: 14060; 67840; 88305; J2405

== ENCOUNTER → 2021-01-05 13:48 | Outpatient (CLI) | payer MEDICARE, SELFPAY ==
[2021-01-05 14:20] LABS: Amphetamine/Metha Screen,Urine Negative ng/ml (<1000); Benzodiazepines Screen,Urine Negative ng/ml (<200)
[2021-01-05 14:21] LABS: Barbiturates Screen,Urine Negative ng/ml (<200)
[2021-01-05 14:22] LABS: Cannabinoid Screen,Urine Positive ng/ml (<50); Cocaine Screen,Urine Negative ng/ml (<300)
[2021-01-05 14:23] LABS: Methadone Screen,Urine Negative ng/ml (<300); Opiate Screen,Urine Negative ng/ml (<300)
[2021-01-05 14:24] LABS: Phencyclidine Screen,Urine Negative ng/ml (<25)
== END ==
PROVIDERS: Visit Provider Emergency Medicine
DX: Z79.899 Other long term (current) drug therapy (principal)
CPT/HCPCS: 80305

== ENCOUNTER → 2021-03-03 18:23 | Outpatient (CLI) | payer MEDICARE, SELFPAY ==
[2021-03-03 19:47] LABS: Amphetamine/Metha Screen,Urine Negative ng/ml (<1000)
[2021-03-03 19:48] LABS: Barbiturates Screen,Urine Negative ng/ml (<200); Benzodiazepines Screen,Urine Negative ng/ml (<200)
[2021-03-03 19:49] LABS: Cannabinoid Screen,Urine Positive ng/ml (<50); Cocaine Screen,Urine Negative ng/ml (<300)
[2021-03-03 19:50] LABS: Methadone Screen,Urine Negative ng/ml (<300)
[2021-03-03 19:51] LABS: Opiate Screen,Urine Negative ng/ml (<300); Phencyclidine Screen,Urine Negative ng/ml (<25)
== END ==
PROVIDERS: Visit Provider Emergency Medicine
DX: Z79.899 Other long term (current) drug therapy (principal)
CPT/HCPCS: 80305

== ENCOUNTER → 2021-05-01 12:57 | Outpatient (CLI) | payer MEDICARE, SELFPAY ==
[2021-05-01 13:35] LABS: Basophils # 0.1 K/mm3 (0-0.2); Eosinophils # 0.1 K/mm3 (0.0-0.4); Eosinophils % 1.8 % (0.1-12.0); Hematocrit 43.6 % (42.0-52.0); Hemoglobin 14.3 g/dL (14.1-18.0); Lymphocytes # 1.1 K/mm3 (0.7-4.5); Lymphocytes % 19.5 % (10-50); Mean Corpuscular HGB Conc 32.7 g/dL (31.8-35.4); Mean Corpuscular Hemoglobin 31.3 pg (27.0-31.2); Mean Corpuscular Volume 95.8 fl (80-94); Monocytes # 0.3 K/mm3 (0.1-1.0); Monocytes % 5.7 % (1.7-9.3); Neutrophils # 4.1 K/mm3 (1.8-7.8); Platelet Count 265 K/mm3 (142-424); Red Blood Count 4.55 M/mm3 (4.60-6.20); Red Cell Distribution Width 14.8 % (11.5-17.5); White Blood Count 5.6 K/mm3 (4.8-10.8)
[2021-05-01 14:13] LABS: Alanine Aminotransferase 16 U/L (12-78); Albumin Level 4.6 g/dl (3.5-5.0); Albumin/Globulin Ratio 1.5 (1.1-1.8); Alkaline Phosphatase 83 U/L (38-126); Anion Gap 10.6 mEq/L (5-15); Aspartate Amino Transferase 21 U/L (17-59); Bilirubin,Total 0.4 mg/dl (0.2-1.3); Blood Urea Nitrogen 12 mg/dl (9-20); Calcium 9.9 mg/dl (8.4-10.2); Carbon Dioxide 30 mmol/L (22.0-30.0); Chloride 103 mmol/L (98-107); Estimated Glomerular Filt Rate 75 ml/min (>60); GFR (African American) 91 ML/MIN (>60); Glucose 109 mg/dl (74-100); Potassium 4.6 mmoL/L (3.5-5.1); Sodium 139 mmol/L (136-145); Total Protein,Serum 7.6 g/dl (6.3-8.2)
== END ==
PROVIDERS: Visit Provider Internal Medicine Medical Oncology
DX: C76.0 Malignant neoplasm of head, face and neck (principal)
CPT/HCPCS: 36415; 80053; 85025

== ENCOUNTER → 2021-05-04 10:14 | Outpatient (CLI) | payer MEDICARE, SELFPAY ==
--- NOTE | 2021-05-04 10:17 | CT_ITS ---
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 All CT scans at the facility use one or more dose reduction, viz: automated exposure control, ma/kV adjustment per patient size (including targeted exams where dose is matched to indication, i.e. head), or iterative reconstruction technique. FINDINGS: LOWER THORAX: No acute finding ABDOMEN & PELVIS: A sub cm hypodensity is present in the left hepatic lobe, segment 2 unchanged and may represent a hepatic cyst. The liver is otherwise unremarkable. The gallbladder, spleen, pancreas, and adrenal glands are unremarkable. There are bilateral renal cysts the largest involving the left kidney anteriorly measuring 10 by 8 cm. No renal or ureteral calculi. No evidence of appendicitis or diverticulitis. There is colonic diverticulosis. Small umbilical hernia containing fat. There are 2 small ventral abdominal wall hernias containing fat 1 of which is 10 cm cephalad to the umbilicus and is slightly situated toward the right. The other hernia is 7 cm cephalad to the umbilicus also slightly toward the right. Small defect is present in the left para ventral region and could be postsurgical. These are unchanged. Degenerative changes thoracic and lumbar spine. IMPRESSION: No interval change with no acute finding. No convincing evidence of metastatic disease. Other nonacute findings as detailed above. Dictated by: Joe Sam MD 05/05/2021 08:04 Joe Sam MD in [facility] 05/05/2021 08:04
--- NOTE | 2021-05-04 10:17 | CT_ITS ---
PROCEDURE: CT CHEST W CON CLINCAL INDICATION: CA OF FACE HEAD NECK COMPARISON: CT CT CHEST W CON from 04/07/2020 TECHNIQUE: IV Contrast: 75ml Isovue 370 Axial images obtained with sagittal and coronal reformats. All CT scans at the facility use one or more dose reduction, viz: automated exposure control, ma/kV adjustment per patient size (including targeted exams where dose is matched to indication, i.e. head), or iterative reconstruction technique. FINDINGS: HEART AND MEDIASTINAL STRUCTURES: There is a small lymph node in the aortopulmonic window not significantly changed at 13 mm. Coronary artery calcification LUNGS AND PLEURAL SPACES: COPD with centrilobular emphysematous changes and scattered areas of scarring. No suspicious pulmonary nodules. BONY STRUCTURES: No acute bony abnormalities apparent. UPPER ABDOMEN: 9.8 x 8 cm cyst along the anterior aspect of the left kidney. ADDITIONAL FINDINGS: Status post resection of the right sternocleidomastoid muscle IMPRESSION: COPD changes with scattered areas of scarring. Overall no change with no acute finding. Dictated by: Joe Sam MD 05/04/2021 16:57 Joe Sam MD in [facility] 05/04/2021 16:57
== END ==
PROVIDERS: PCP Emergency Medicine; Visit Provider Internal Medicine Medical Oncology
DX: C76.0 Malignant neoplasm of head, face and neck (principal)
CPT/HCPCS: 71260; 74177; Q9967

== ENCOUNTER → 2021-06-16 14:13 | Outpatient (CLI) | payer MEDICARE, SELFPAY ==
[2021-06-16 16:07] LABS: Barbiturates Screen,Urine Negative ng/ml (<200); Benzodiazepines Screen,Urine Negative ng/ml (<200)
[2021-06-16 16:08] LABS: Amphetamine/Metha Screen,Urine Negative ng/ml (<1000)
[2021-06-16 16:09] LABS: Cannabinoid Screen,Urine Positive ng/ml (<50); Cocaine Screen,Urine Negative ng/ml (<300)
[2021-06-16 16:10] LABS: Methadone Screen,Urine Negative ng/ml (<300); Opiate Screen,Urine Negative ng/ml (<300)
[2021-06-16 16:11] LABS: Phencyclidine Screen,Urine Negative ng/ml (<25)
== END ==
PROVIDERS: Visit Provider Emergency Medicine
DX: G89.3 Neoplasm related pain (acute) (chronic) (principal); R41.82 Altered mental status, unspecified
CPT/HCPCS: 80305

== ENCOUNTER → 2021-09-02 15:45 | Outpatient (CLI) | payer MEDICARE, SELFPAY | PROVIDERS: PCP Emergency Medicine; Visit Provider Nurse Practitioner | DX: Z20.822 Contact with and (suspected) exposure to COVID-19 (principal) | CPT/HCPCS: C9803; U0003; U0005 ==

== ENCOUNTER 2021-09-23 16:05 | Emergency (ER) | payer MEDICARE, SELFPAY ==
[2021-09-23 16:05] VITALS: BP 197/100; PULSE 69; RESP 20; TEMP 36.7; O2SAT 98; BMI 33.0
--- NOTE | 2021-09-23 16:20 | PC.NURSE ---
ED MD at bedside
[2021-09-23 16:30] VITALS: BP 169/91; PULSE 66; RESP 16; O2SAT 98
[2021-09-23 17:00] VITALS: BP 148/83; PULSE 62; RESP 16; O2SAT 95
--- NOTE | 2021-09-23 17:08 | PC.NURSE ---
Calling [facility] to speak with Dr. Sargent or whoever is telephone collector with [facility]
--- NOTE | 2021-09-23 17:15 | PC.NURSE ---
UPDATED ON PLAN OF CARE
--- NOTE | 2021-09-23 17:42 | HMH.EDGENADL ---
ED Disposition Clinical Impression: Facial swelling Disposition: Home, Self-Care Condition on Discharge: Good Additional Instructions: Please return to the ED with new or worsening symptoms. Referrals: John Gonzalez MD [Primary Care Provider] - - Critical Care Critical Care Time: No Attestation: On 09/23/21, the high probability of a clinically significant, sudden or life threatening deterioration of the following system(s) required my full and direct attention, intervention and personal management. The time I documented below is in addition to time spent performing reported procedures but includes the following listed in this critical care notation. Medical Decision Making - Medical Records Medical records reviewed: Yes: I reviewed the patient's medical records. - [place] Inquiry Pt receiving controlled substance: No Vital Signs: 09/23/21 16:05 Temperature 98.1 F Temperature Source Oral Pulse Rate [Radial] 69 Respiratory Rate 20 Blood Pressure [Right Arm] 197/100 H Blood Pressure Mean [Right Arm] 132 Blood Pressure Position [Right Arm] Sitting 02 Sat by Pulse Oximetry 98 Oxygen Delivery Method Room Air Orders (Tests/Meds): ED MEDICATIONS Generic Name Dose Route Start Last Admin Trade Name Freq PRN Reason Stop Dose Admin Sodium Chloride 8 ml 09/23/21 16:27 Sodium Chloride 0.9% 10ml Vial IV 10/23/21 16:26 NEEDED PRN dilute pepcid Discontinued Medications Generic Name Dose Route Start Last Admin Trade Name Freq PRN Reason Stop Dose Admin Diphenhydramine HCl 25 mg 09/23/21 16:27 09/23/21 16:29 Diphenhydramine 50mg/Ml Vial IV 09/23/21 16:28 25 mg ONCE ONE Administration Famotidine 20 mg 09/23/21 16:27 09/23/21 16:29 Famotidine 20mg/2ml Vial IV 09/23/21 16:28 20 mg ONCE ONE Administration Medical Decision Narrative: Pt is a 66 year old male presenting to the ED today with concern for left cheek and face swelling, recently operated by Dr Sargent at . Pt is well appearing on initial evaluation, no acute distress, no respiratory distress. Pt is complaining of mild facial pain and is on oxy at home for that, but is more concerned about his facial swelling and mild difficulty swallowing. gave pt 25mg IV benadryl, and his swelling got mildly better, but giventhat he was recently post op, we discussed the case with Dr Sargent from ENT at on the phone, he stated the swelling is a chronic problem for the patient and that he saw a picture today and was not concerned that it was worse, and certainly not infected, pt has also had chronic difficutly swallowing. Pt has scheduled followup early next week, he will be seen by dr Gonzalez who i also spoke with and he will help manage his pain medication, pt instructed to call the office in the morning tomorrow to discuss. Pt given 5mg oral oxycodone prior to DC. able to swallow well on bedside evaluation. Pt given return precautions and able to be Dc. General Adult HPI - General Chief complaint: Allergic Reaction Stated complaint: facial swelling from surgery 09/22 Time Seen by Provider: 09/23/21 17:43 Mode of Arrival: Ambulatory Limitations: No Limitations Description of Symptoms (Recalled from ER Triage Doc. by RN): TO ED PER [facility] WITH C/O FACIAL SWELLING STARTING WHEN HE WOKE UP THIS AM. PT STATES HE HAD FACIAL SURGERY YESTERDAY AT HOSP TO REMOVE CANCER. PT C/O DIFFICULTY SWALLOWING, SWELLING TO EYES, LIPS, STATES FEELS LIKE THROAT SWELLING. DENIES ANY SOB. PT WAS D/TORIBIO WITH KEFLEX AND DICLOFENCE. - History of Present Illness HPI narrative: Pt is a 64 year old male who presents to the ED today with concern for left sided facial swelling, he had an operation yesterday with Dr Sargent with [facility] at and stated that his procedure went well, this morning states that he got worsening swelling of the left side of his face, he states that his eyelids, cheek, and lips were swollen and he was having some difficu
--- NOTE | 2021-09-23 17:42 | PC.NURSE ---
JAZMINE MORRIS on phone with MDs
[2021-09-23 18:20] VITALS: BP 163/74; PULSE 78; RESP 18; TEMP 36.6; O2SAT 98
== END 2021-09-23 18:22 | disposition home or self-care (01) ==
PROVIDERS: Emergency Provider Student in an Organized Health Care Education/Training Program; PCP Emergency Medicine
DX: L76.82 Other postprocedural complications of skin and subcutaneous tissue (principal); R22.0 Localized swelling, mass and lump, head; Z88.2 Allergy status to sulfonamides; I10 Essential (primary) hypertension; E78.5 Hyperlipidemia, unspecified; J44.9 Chronic obstructive pulmonary disease, unspecified; E03.9 Hypothyroidism, unspecified; K21.9 Gastro-esophageal reflux disease without esophagitis; F17.210 Nicotine dependence, cigarettes, uncomplicated; Z79.899 Other long term (current) drug therapy
CPT/HCPCS: 96374; 96375; 99284

== ENCOUNTER → 2021-12-07 12:49 | Outpatient (CLI) | payer MEDICARE, SELFPAY ==
[2021-12-07 14:15] LABS: Amphetamine/Metha Screen,Urine Negative ng/ml (<1000); Barbiturates Screen,Urine Negative ng/ml (<200)
[2021-12-07 14:16] LABS: Benzodiazepines Screen,Urine Negative ng/ml (<200); Cannabinoid Screen,Urine Negative ng/ml (<50)
[2021-12-07 14:17] LABS: Cocaine Screen,Urine Negative ng/ml (<300)
[2021-12-07 14:22] LABS: Methadone Screen,Urine Negative ng/ml (<300)
[2021-12-07 14:23] LABS: Opiate Screen,Urine Negative ng/ml (<300); Phencyclidine Screen,Urine Negative ng/ml (<25)
== END ==
PROVIDERS: PCP Emergency Medicine; Visit Provider Emergency Medicine
DX: Z79.899 Other long term (current) drug therapy (principal)
CPT/HCPCS: 80305

== ENCOUNTER → 2021-12-28 08:35 | Outpatient (CLI) | payer MEDICARE, SELFPAY ==
--- NOTE | 2021-12-28 08:35 | CT_ITS ---
FINAL REPORT CLINICAL HISTORY: Complex abdominal hernia COMPARISON: May 04, 2021 FINDINGS: Axial CT images of the abdomen and pelvis were obtained without intravenous contrast. Coronal reformatted images were also obtained.This study was performed with techniques to keep radiation doses as low as reasonably achievable (ALARA). Individualized dose reduction techniques using automated exposure control or adjustment of mA and/or kV according to the patient's size were employed. Abdomen: The lung bases are clear. There is no evidence of renal stone or hydronephrosis. The gallbladder is present. The liver, spleen and pancreas have an unremarkable, unenhanced appearance. There is a 9.8 cm mass in the anterior left kidney consistent with a simple cyst, stable from prior. There is a lobular umbilical hernia containing fat with the hernia sac measuring 22 mm. There are 2 supraumbilical right paramedian hernias containing fat. The more superior hernia sac measures 43 mm. The more inferior hernia sac measures 53 mm with edema within the fat. This has increased since the prior exam. Pelvis: Images of the pelvis reveal no evidence of ureteral dilation or ureteral stone. There is diverticulosis of the sigmoid colon. The appendix is normal. There are small inguinal hernias containing fat. IMPRESSION: Umbilical and supraumbilical hernias as described. Edema within the fat of the more inferior supraumbilical hernia has increased since the prior exam. Diverticulosis without evidence of diverticulitis. Reviewed, Interpreted and Dictated by Jeremie Jaramillo III, MD Transcribed by Juan A Rae Authenticated and [facility]
== END ==
PROVIDERS: PCP Emergency Medicine; Visit Provider Surgery
DX: K43.2 Incisional hernia without obstruction or gangrene (principal)
CPT/HCPCS: 74176

== ENCOUNTER 2021-12-31 16:07 | Emergency (ER) | payer MEDICARE, SELFPAY ==
[2021-12-31 16:09] VITALS: BP 140/70; PULSE 72; RESP 16; TEMP 36.6; O2SAT 98; BMI 31.1
[2021-12-31 16:21] VITALS: BMI 31.1
--- NOTE | 2021-12-31 16:24 | HMH.EDGENADL ---
ED Disposition Clinical Impression: Gastroenteritis Disposition: Home, Self-Care Condition on Discharge: Good Instructions: DI for Diarrhea and Traveler's Diarrhea -- Adult, DI for Nausea -- Adult Prescriptions: Ondansetron [Zofran 4mg ODT] 4 mg PO TIDP PRN #20 tab PRN Reason: Nausea Transmission Status: Pending to [facility] Referrals: John Gonzalez MD [Primary Care Provider] - - Critical Care Critical Care Time: No Attestation: On 12/31/21, the high probability of a clinically significant, sudden or life threatening deterioration of the following system(s) required my full and direct attention, intervention and personal management. The time I documented below is in addition to time spent performing reported procedures but includes the following listed in this critical care notation. Medical Decision Making - Medical Records Medical records reviewed: Yes: I reviewed the patient's medical records. - Willard Inquiry Pt receiving controlled substance: No Vital Signs: 12/31/21 16:09 Temperature 98 F Temperature Source Oral Pulse Rate [Radial] 72 Respiratory Rate 16 Blood Pressure [Right Arm] 140/70 Blood Pressure Mean [Right Arm] 93 Blood Pressure Position [Right Arm] Sitting 02 Sat by Pulse Oximetry 98 Oxygen Delivery Method Room Air - Lab Data Lab results reviewed: Yes: I reviewed the patient's lab results. Lab Results 12/31/21 16:55: WBC 6.1, RBC 4.41 L, Hgb 14.7, Hct 42.6, MCV 96.7 H, MCH 33.3 H, MCHC 34.4, RDW 15.6, Plt Count 253, MPV 8.3, Neut % (Auto) 71.7, Lymph % (Auto) 18.5, [place] % (Auto) 6.6, Eos % (Auto) 2.0, Baso % (Auto) 1.4, Neut # (Auto) 4.4, Lymph # (Auto) 1.1, [place] # (Auto) 0.4, Eos # (Auto) 0.1, Baso # (Auto) 0.1 12/31/21 16:55: Sodium 140, Potassium 4.5, Chloride 106, Carbon Dioxide 24, Anion Gap 14.5, BUN 37 H, Creatinine 1.60 H, Estimated Creat Clear 65, Estimated GFR 44 L, Est GFR ( Amer) 53 L, Glucose 118 H, Calcium 10.0, Total Bilirubin 1.0, AST 23, ALT 18, Alkaline Phosphatase 112, Total Protein 8.1, Albumin 4.9, Globulin 3.2, Albumin/Globulin Ratio 1.5 12/31/21 16:55: Lipase 134 12/31/21 16:55: Lactate 0.9 12/31/21 17:45: Urine Color Yellow, Urine Appearance Clear, Urine pH 6.0, Ur Specific [place]att 1.025, Urine Protein Negative, Urine Glucose (UA) Negative, Urine Ketones Negative, Urine Blood Negative, Urine Nitrate Negative, Urine Bilirubin 1+ A, Urine Urobilinogen 0.2, Ur Leukocyte Esterase Negative, Urine RBC Occasional, Urine WBC None, Ur Squamous Epith Cells None, Urine Bacteria Trace Result diagrams: 12/31/21 16:55 12/31/21 16:55 Orders (Tests/Meds): ED MEDICATIONS Generic Name Dose Route Start Last Admin Trade Name Freq PRN Reason Stop Dose Admin Sodium Chloride 500 mls @ 999 mls/hr 12/31/21 16:45 12/31/21 17:11 Sod Chlor 0.9% 1000ml Bag IV 12/31/21 17:15 Not Given .Q31M AMY Sodium Chloride 500 mls @ 999 mls/hr 12/31/21 17:00 12/31/21 17:11 Sod Chlor 0.9% 1000ml Bag IV 12/31/21 17:30 Not Given .Q31M AMY Sodium Chloride 1,000 mls @ 999 mls/hr 12/31/21 17:15 12/31/21 17:16 Sod Chlor 0.9% 1000ml Bag IV 12/31/21 18:15 999 mls/hr .Q1H1M AMY Administration Discontinued Medications Generic Name Dose Route Start Last Admin Trade Name Freq PRN Reason Stop Dose Admin Iopamidol 75 ml 12/31/21 17:55 12/31/21 17:56 Iopamidol-370 (76%);100ml Bottle IV 12/31/21 17:56 75 ml ONCE ONE Administration Ondansetron HCl 4 mg 12/31/21 16:38 12/31/21 17:16 Ondansetron 4mg/2ml Vial IV 12/31/21 16:39 4 mg ONCE ONE Administration Sodium Chloride 10 ml 12/31/21 17:55 12/31/21 17:56 Sodium Chloride 0.9% 10ml Syr (Rad Only) IV 12/31/21 17:56 10 ml ONCE ONE Administration ORDERS Category Date Time Status Diarrhea 6-11 Panel, Cdiff PCR Stat Lab 12/31/21 16:23 Ordered Medical Decision Narrative: no acute findings on CT General Adult HPI - General Stated complaint:
--- NOTE | 2021-12-31 16:32 | PC.NURSE ---
JAZMINE MORRIS at
--- NOTE | 2021-12-31 16:37 | CT_ITS ---
PROCEDURE INFORMATION: Exam: CT Abdomen And Pelvis With Contrast Exam date and time: 12/31/2021 5:32 PM Age: 66 years old Clinical indication: Abdominal pain; Localized; Right; Prior surgery; Surgery date: 6+ months; Surgery type: Feeding tube; Additional info: Diffuse abd pain, R/O obstruction TECHNIQUE: Imaging protocol: Computed tomography of the abdomen and pelvis with contrast. Radiation optimization: All CT scans at this facility use at least one of these dose optimization techniques: automated exposure control; mA and/or kV adjustment per patient size (includes targeted exams where dose is matched to clinical indication); or iterative reconstruction. Contrast material: ISOVUE; Contrast volume: 75 ml; Contrast route: IV; COMPARISON: CT ABDOMEN PELVIS WO CON 12/28/2021 8:44 AM FINDINGS: Liver: Normal. No mass. Gallbladder and bile ducts: Normal. No calcified stones. No ductal dilation. Pancreas: Normal. No ductal dilation. Spleen: Normal. No splenomegaly. Adrenal glands: Normal. No mass. Kidneys and ureters: Large cyst in the left kidney measuring 6 cm. No hydronephrosis. Stomach and bowel: Diverticulosis in the sigmoid without diverticulitis. No obstruction. No mucosal thickening. Appendix: No evidence of appendicitis. Intraperitoneal space: Unremarkable. No free air. No significant fluid collection. Vasculature: Unremarkable. No abdominal aortic aneurysm. Lymph nodes: Unremarkable. No enlarged lymph nodes. Urinary bladder: Unremarkable as visualized. Reproductive: Unremarkable as visualized. Bones/joints: Unremarkable. No acute fracture. Soft tissues: Tiny ventral abdominal wall hernias containing fat. IMPRESSION: No acute findings.
[2021-12-31 17:06] LABS: Basophils # 0.1 K/mm3 (0-0.2); Basophils % 1.4 % (0.1-2.0); Eosinophils # 0.1 K/mm3 (0.0-0.4); Hematocrit 42.6 % (42.0-52.0); Hemoglobin 14.7 g/dL (14.1-18.0); Lymphocytes # 1.1 K/mm3 (0.7-4.5); Lymphocytes % 18.5 % (10-50); Mean Corpuscular HGB Conc 34.4 g/dL (31.8-35.4); Mean Corpuscular Hemoglobin 33.3 pg (27.0-31.2); Mean Corpuscular Volume 96.7 fl (80-94); Mean Platelet Volume 8.3 fl (7.4-10.4); Monocytes # 0.4 K/mm3 (0.1-1.0); Monocytes % 6.6 % (1.7-9.3); Neutrophils # 4.4 K/mm3 (1.8-7.8); Neutrophils % 71.7 % (37.0-80.0); Platelet Count 253 K/mm3 (142-424); Red Blood Count 4.41 M/mm3 (4.60-6.20); Red Cell Distribution Width 15.6 % (11.5-17.5); White Blood Count 6.1 K/mm3 (4.8-10.8)
[2021-12-31 17:12] LABS: Chloride 106 mmol/L (98-107); Potassium 4.5 mmoL/L (3.5-5.1); Sodium 140 mmol/L (136-145)
[2021-12-31 17:14] LABS: Blood Urea Nitrogen 37 mg/dl (9-20); Creatinine Clearance Estimated 65 mL/min (50-200); Estimated Glomerular Filt Rate 44 ml/min (>60); GFR (African American) 53 ML/MIN (>60); Lactic Acid 0.9 mmol/L (0.7-2.1); Lipase 134 U/L (23-300)
[2021-12-31 17:15] LABS: Alanine Aminotransferase 18 U/L (12-78); Albumin Level 4.9 g/dl (3.5-5.0); Albumin/Globulin Ratio 1.5 (1.1-1.8); Alkaline Phosphatase 112 U/L (38-126); Anion Gap 14.5 mEq/L (5-15); Aspartate Amino Transferase 23 U/L (17-59); Carbon Dioxide 24 mmol/L (22.0-30.0); Globulin 3.2 g/dL (1.3-3.2); Glucose 118 mg/dl (74-100); Total Protein,Serum 8.1 g/dl (6.3-8.2)
[2021-12-31 17:56] LABS: Microscopic, Urine URINE MICROSCOPIC (MICROSCOPIC)
[2021-12-31 18:02] LABS: Appearance,Urine CLEAR (Clear); Blood, Urine Negative (Negative); Color,Urine YELLOW (Yellow); Glucose,Urine (UA) Negative (Negative); Ketones,Urine Negative (Negative); Leukocyte Esterase,Urine Negative (Negative); Nitrate,Urine Negative (Negative); Protein,Urine Negative (Negative); Specific Gravity, Urine 1.025 (1.005-1.030); Urobilinogen,Urine 0.2 EU/dl (0.2)
--- NOTE | 2021-12-31 18:09 | PC.NURSE ---
Called Sergio in radiology to check when patient was going to CT, he reports he is next on the list
[2021-12-31 18:23] LABS: Bilirubin,Urine 1+ (Negative)
[2021-12-31 18:24] LABS: Bacteria,Urine Trace /lpf; RBC,Urine Occasional #/hpf (0-3)
[2021-12-31 19:52] VITALS: BP 147/87; PULSE 87; RESP 16; TEMP 37.2; O2SAT 97
== END 2021-12-31 19:54 | disposition home or self-care (01) ==
PROVIDERS: Emergency Provider Emergency Medicine; PCP Emergency Medicine
DX: R10.9 Unspecified abdominal pain (principal); R19.7 Diarrhea, unspecified; R11.0 Nausea; D64.9 Anemia, unspecified; I10 Essential (primary) hypertension; N28.9 Disorder of kidney and ureter, unspecified; K21.9 Gastro-esophageal reflux disease without esophagitis; E78.5 Hyperlipidemia, unspecified; E03.9 Hypothyroidism, unspecified; M19.90 Unspecified osteoarthritis, unspecified site; K43.9 Ventral hernia without obstruction or gangrene; J98.4 Other disorders of lung; J44.9 Chronic obstructive pulmonary disease, unspecified; F17.210 Nicotine dependence, cigarettes, uncomplicated; Z79.899 Other long term (current) drug therapy; Z88.0 Allergy status to penicillin; Z85.9 Personal history of malignant neoplasm, unspecified; Z92.21 Personal history of antineoplastic chemotherapy; Z92.3 Personal history of irradiation; Z80.9 Family history of malignant neoplasm, unspecified
CPT/HCPCS: 74177; 80053; 81001; 83605; 83690; 85025; 96361; 96374; 99285; J2405; Q9967

== ENCOUNTER 2022-01-12 12:41 | Emergency (ER) | payer MEDICARE, SELFPAY ==
[2022-01-12 13:01] VITALS: BP 141/67; PULSE 65; RESP 16; TEMP 36.8; O2SAT 99; BMI 31.1
--- NOTE | 2022-01-12 13:24 | HMH.EDUTC ---
[facility] [place] Clinical Impression: Exposure to COVID-19 virus Disposition: Home, Self-Care Condition on Discharge: Good Instructions: DI for COVID-19 (Suspected or Confirmed ), Preventing the Spread of Coronavirus Discharge Instructions Additional Instructions: Drink plenty of fluids. Take tylenol for pain or fever. Return if you begin to have difficulty breathing. Follow up with your regular doctor. GO TO THE ER FOR ANY WORSENING SYMPTOMS Quarantine until you know the results of your covid-19 test. If it is positive, the health department should call you and give you further instructions about your length of Quarantine and other things. Notify your school or workplace of your results and follow their instructions regarding return to work/school. Referrals: John Gonzalez MD [Primary Care Provider] - Time of Disposition: 13:26 Medical Decision Making - Medical Records Medical records reviewed: No: I reviewed the patient's medical records. - Willard Inquiry Pt receiving controlled substance: No Vital Signs: 01/12/22 13:01 01/12/22 13:26 Temperature 98.3 F 98.3 F Temperature Source Oral Pulse Rate 65 Pulse Rate [Left] 65 Respiratory Rate 16 16 Blood Pressure 141/67 H Blood Pressure [Right Arm] 141/67 H Blood Pressure Mean [Right Arm] 91 02 Sat by Pulse Oximetry 99 Orders (Tests/Meds): ORDERS Category Date Time Status Covid-[address] Nasal PCR ([facility]) Routine Lab 01/12/22 12:57 Received [facility] [place] HPI - General Stated complaint: covid test Time Seen by Provider: 01/12/22 13:05 Description of Symptoms (Recalled from Triage Doc. by RN): patient comes in for a covid test. patient has been exposed but it having no symptoms. HEENT Symptoms (Recalled from RN notes): No Resp Symptoms (Recalled from RN notes): No Skin Symptoms (Recalled from RN notes): No MS Symptoms (Recalled from RN notes): No Functional Status (Recalled from RN notes): wnl - History of Present Illness Provider Complaint: He denies any symptoms but 5 members of his family in his household currently have covid-19. HE has been vaccinated for covid-19. - Related Data Home Medications Medication Instructions Recorded Confirmed Sucralfate [Carafate 1gm Tab] 1 gm PO ACHS 06/26/20 12/11/21 Previous Rx's Medication Instructions Recorded sildenafil (pulm.hypertension) 20 See Rx Instructions .ROUTE 08/12/20 mg tablet .COMPLEX PRN #30 tab amlodipine 5 mg tablet 5 mg PO DAILY #90 tab 06/26/21 levothyroxine 75 mcg tablet See Rx Instructions .ROUTE 07/29/21 .COMPLEX #90 tablet losartan 100 1 tab PO DAILY #90 tab 07/29/21 mg-hydrochlorothiazide 25 mg tablet ondansetron 4 mg disintegrating 4 mg PO Q8H PRN #12 tab 10/15/21 tablet gabapentin 600 mg tablet 600 mg PO TID #90 tab 12/07/21 oxycodone-acetaminophen 7.5 mg-325 1 tab PO Q6H PRN #120 tab 12/07/21 mg tablet sodium,potassium,mag sulfates 17.5 See Rx Instructions PO .COMPLEX 12/11/21 gram-3.13 gram-1.6 gram oral soln #354 ml pantoprazole 40 mg tablet,delayed See Rx Instructions .ROUTE 12/25/21 release .COMPLEX #30 tab Ondansetron [Zofran 4mg ODT] 4 mg PO TIDP PRN #20 tab 12/31/21 Allergies Allergy/AdvReac Type Severity Reaction Status Date / Time Penicillins [PENICILLINS] Allergy Intermediate Rash/hives Verified 01/12/22 13:03 - Worker's Comp Is this a Worker's Comp case?: No [facility] History - Hepatitis A Screen Attestation statement:: This patient has been screened for Hepatitis A risk factors. I have reviewed the patient's past medical history: Yes Medical History: Reports:: Cancer, Chronic Obstructive Pulmonary Disease (COPD), Gastroesophageal Reflux Disease(GERD), Hyperlipidemia, Hypertension, Lung Disease Denies:: Diabetes Mellitus Type 1, Diabetes Mellitus Type 2, Internal Pacemaker, MRSA, Renal Disease, Seizures Other Medical History: Reports: Anemia, Arthritis, Chemotherapy, Hypothyroidism, Radiation Therapy. Denies: B
[2022-01-12 13:26] VITALS: BP 141/67; PULSE 65; RESP 16; TEMP 36.8
== END 2022-01-12 13:28 | disposition home or self-care (01) ==
PROVIDERS: Emergency Provider Nurse Practitioner Family; PCP Emergency Medicine
DX: U07.1 COVID-19 (principal); J44.9 Chronic obstructive pulmonary disease, unspecified; F17.210 Nicotine dependence, cigarettes, uncomplicated
CPT/HCPCS: 99212; C9803; G0463; U0003; U0005

== ENCOUNTER 2022-01-19 20:25 | Emergency (ER) | payer MEDICARE, SELFPAY ==
[2022-01-19 20:28] VITALS: BP 140/84; PULSE 65; RESP 20; TEMP 37.3; O2SAT 97; BMI 32.1
--- NOTE | 2022-01-19 21:00 | ECG_ITS ---
APPROVED REPORT Exam: Resting ECG HR:65 bpm ECG Measurements Heart Rate 65 AXES NC 170 P 55 QRSd 137 QRS -12 QT 404 T 24 QTc 415 Conclusion SINUS RHYTHM RIGHT BUNDLE BRANCH BLOCK [120+ ms QRS DURATION, UPRIGHT V1, 40+ ms S IN I/aVL/V4/V5/V6] ABNORMAL ECG UNCONFIRMED REPORT Electronically signed by : Toney Harris MD 01/21/2022 17:43:24
--- NOTE | 2022-01-19 21:04 | XR_ITS ---
PROCEDURE INFORMATION: Exam: XR Chest Exam date and time: 01/19/2022 8:40 PM Age: 66 years old Clinical indication: Condition or disease; Lung condition and disease; Pneumonia; Other: Covid; Cough TECHNIQUE: Imaging protocol: Radiologic exam of the chest. Views: 1 view. COMPARISON: CT CHEST W CON 05/04/2021 11:04 AM FINDINGS: Lungs: Subtle interstitial haziness could reflect interstitial pneumonia. No consolidation. Granulomatous changes. Pleural spaces: Unremarkable. No pleural effusion. No pneumothorax. Heart/Mediastinum: Unremarkable. No cardiomegaly. Bones/joints: Unremarkable. IMPRESSION: Subtle interstitial haziness could reflect interstitial pneumonia.
[2022-01-19 21:49] LABS: Basophils % 0.7 % (0.1-2.0); Eosinophils # 0.1 K/mm3 (0.0-0.4); Hematocrit 34.6 % (42.0-52.0); Hemoglobin 10.3 g/dL (14.1-18.0); Lymphocytes # 0.6 K/mm3 (0.7-4.5); Lymphocytes % 16.4 % (10-50); Mean Corpuscular HGB Conc 29.9 g/dL (31.8-35.4); Mean Corpuscular Hemoglobin 30.2 pg (27.0-31.2); Mean Platelet Volume 8.6 fl (7.4-10.4); Monocytes # 0.3 K/mm3 (0.1-1.0); Monocytes % 7.7 % (1.7-9.3); Neutrophils # 2.7 K/mm3 (1.8-7.8); Neutrophils % 73.2 % (37.0-80.0); Platelet Count 202 K/mm3 (142-424); Red Blood Count 3.42 M/mm3 (4.60-6.20); White Blood Count 3.6 K/mm3 (4.8-10.8)
--- NOTE | 2022-01-19 22:08 | HMH.EDURI ---
ED Disposition Clinical Impression: COVID-19, Obesity (BMI 30-39.9), Tobacco use Hypothyroid Qualifiers: Hypothyroidism type: acquired Qualified Code(s): E03.9 - Hypothyroidism, unspecified Disposition: Home, Self-Care Condition on Discharge: Good Instructions: DI for COVID-19 (Suspected or Confirmed ) Additional Instructions: fluids and call pcp as needed Referrals: John Gonzalez MD [Primary Care Provider] - - Critical Care Critical Care Time: No Attestation: On 01/19/22, the high probability of a clinically significant, sudden or life threatening deterioration of the following system(s) required my full and direct attention, intervention and personal management. The time I documented below is in addition to time spent performing reported procedures but includes the following listed in this critical care notation. Medical Decision Making - Medical Records Medical records reviewed: Yes: I reviewed the patient's medical records. - Willard Inquiry Pt receiving controlled substance: No Vital Signs: 01/19/22 20:28 Temperature 99.1 F Temperature Source Oral Pulse Rate [Left] 65 Respiratory Rate 20 Blood Pressure [Right Arm] 140/84 Blood Pressure Mean [Right Arm] 102 02 Sat by Pulse Oximetry 97 Oxygen Delivery Method Room Air - Lab Data Lab results reviewed: Yes: I reviewed the patient's lab results. Lab Results 01/19/22 21:31: WBC 3.6 L, RBC 3.42 L, Hgb 10.3 L, Hct 34.6 L, MCV 101.0 H, MCH 30.2, MCHC 29.9 L, RDW 15.0, Plt Count 202, MPV 8.6, Neut % (Auto) 73.2, Lymph % (Auto) 16.4, [place] % (Auto) 7.7, Eos % (Auto) 2.0, Baso % (Auto) 0.7, Neut # (Auto) 2.7, Lymph # (Auto) 0.6 L, [place] # (Auto) 0.3, Eos # (Auto) 0.1, Baso # (Auto) 0.0 01/19/22 21:31: Sodium 139, Potassium 4.4, Chloride 101, Carbon Dioxide 32 H, Anion Gap 10.4, BUN 25 H, Creatinine 1.20, Estimated Creat Clear 89, Estimated GFR 61, Est GFR ( Amer) 74, Glucose 102 H, Calcium 8.6, Total Bilirubin 0.2, AST 38, ALT 27, Alkaline Phosphatase 96, Troponin I < 0.01, C-Reactive Protein 111.5 H, Total Protein 6.9, Albumin 3.6, Globulin 3.3 H, Albumin/Globulin Ratio 1.1 01/19/22 21:31: NT-Pro-B Natriuret Pep 889 H Result diagrams: 01/19/22 21:31 01/19/22 21:31 Orders (Tests/Meds): ED MEDICATIONS Generic Name Dose Route Start Last Admin Trade Name Freq PRN Reason Stop Dose Admin Sodium Chloride 1,000 mls @ 999 mls/hr 01/19/22 21:30 01/19/22 21:33 Sod Chlor 0.9% 1000ml Bag IV 01/19/22 22:30 999 mls/hr .Q1H1M AMY Administration Discontinued Medications Generic Name Dose Route Start Last Admin Trade Name Freq PRN Reason Stop Dose Admin Dexamethasone Sodium Phosphate 10 mg 01/19/22 21:20 01/19/22 21:32 Dexamethasone 4mg/Ml 5ml Mdv IV 01/19/22 21:21 10 mg ONCE ONE Administration ORDERS Category Date Time Status C-Reactive Protein Stat Lab 01/19/22 21:31 Results Complete Blood Count Auto Diff Stat Lab 01/19/22 21:31 Results Comprehensive Metabolic Panel Stat Lab 01/19/22 21:31 Results Erythrocyte Sedimentation Rate Stat Lab 01/19/22 21:31 Results Procalcitonin Stat Lab 01/19/22 21:31 Results Troponin I Q3H Lab 01/20/22 00:30 Ordered Troponin I Q3H Lab 01/20/22 03:30 Ordered Troponin I Stat Lab 01/19/22 21:31 Results - Radiology Data #1 Image(s): Chest Image Reviewed: Yes I have reviewed radiologist's interpretation Preliminary Findings: Abnormal (nonspecific) - ECG Data Tracing #1 I reviewed this ECG and interpreted as documented below: Normal Sinus Rhythm: Yes Ischemic changes: non-specific ST-T wave changes - NITA Score for Non-Stemi Age of Patient: 60-69 years old Heart Rate: 50-69 bpm Systolic Blood Pressure: 140-159 mmHg Serum Creatinine: 1.20-1.59 mg/dl CHF [place] Class: I-No CHF Other Risk Factors: None Non-Stemi Risk Score: 95 Medical Decision Narrative: known covid-19 with cough and sob with stable exam and labs - discussed tob cessation URI/Sor
[2022-01-19 22:25] LABS: Alanine Aminotransferase 27 U/L (12-78); Albumin Level 3.6 g/dl (3.5-5.0); Albumin/Globulin Ratio 1.1 (1.1-1.8); Alkaline Phosphatase 96 U/L (38-126); Anion Gap 10.4 mEq/L (5-15); Aspartate Amino Transferase 38 U/L (17-59); Bilirubin,Total 0.2 mg/dl (0.2-1.3); Blood Urea Nitrogen 25 mg/dl (9-20); Calcium 8.6 mg/dl (8.4-10.2); Carbon Dioxide 32 mmol/L (22.0-30.0); Chloride 101 mmol/L (98-107); Creatinine Clearance Estimated 89 mL/min (50-200); Estimated Glomerular Filt Rate 61 ml/min (>60); GFR (African American) 74 ML/MIN (>60); Globulin 3.3 g/dL (1.3-3.2); Glucose 102 mg/dl (74-100); Potassium 4.4 mmoL/L (3.5-5.1); Sodium 139 mmol/L (136-145); Total Protein,Serum 6.9 g/dl (6.3-8.2)
[2022-01-19 22:29] LABS: C-Reactive Protein 111.5 mg/L (0-4)
[2022-01-19 22:37] LABS: NT Pro Brain Natriuretic Pep. 889 pg/mL (0-125)
[2022-01-19 22:41] LABS: Troponin I < 0.01 ng/ml (0.00-0.034)
[2022-01-19 22:45] LABS: Procalcitonin 0.081 ng/mL (0.0-2.0)
[2022-01-19 22:56] VITALS: BP 142/80; PULSE 87; RESP 18; TEMP 36.8; O2SAT 96
[2022-01-19 23:40] LABS: Erythrocyte Sedimentation Rate > 140 mm/hr (0-20)
== END 2022-01-19 23:01 | disposition home or self-care (01) ==
PROVIDERS: Emergency Provider Emergency Medicine; PCP Emergency Medicine
DX: U07.1 COVID-19 (principal); E66.9 Obesity, unspecified; Z68.32 Body mass index [BMI] 32.0-32.9, adult; Z72.0 Tobacco use; E03.9 Hypothyroidism, unspecified; Z88.0 Allergy status to penicillin; J44.9 Chronic obstructive pulmonary disease, unspecified; E78.5 Hyperlipidemia, unspecified; I10 Essential (primary) hypertension; K21.9 Gastro-esophageal reflux disease without esophagitis; D64.9 Anemia, unspecified; M19.90 Unspecified osteoarthritis, unspecified site
CPT/HCPCS: 71045; 80053; 83880; 84145; 84484; 85025; 85651; 86140; 93005; 96365; 96375; 99284

== ENCOUNTER → 2022-02-03 19:01 | Outpatient (CLI) | payer MEDICARE, SELFPAY ==
[2022-02-03 13:37] LABS: Amphetamine/Metha Screen,Urine Negative ng/ml (<1000)
[2022-02-03 13:38] LABS: Barbiturates Screen,Urine Negative ng/ml (<200); Benzodiazepines Screen,Urine Negative ng/ml (<200)
[2022-02-03 13:39] LABS: Cannabinoid Screen,Urine Negative ng/ml (<50)
[2022-02-03 13:40] LABS: Cocaine Screen,Urine Negative ng/ml (<300); Methadone Screen,Urine Negative ng/ml (<300)
[2022-02-03 13:42] LABS: Opiate Screen,Urine Positive ng/ml (<300); Phencyclidine Screen,Urine Negative ng/ml (<25)
== END ==
PROVIDERS: PCP Emergency Medicine; Visit Provider Emergency Medicine
DX: R41.82 Altered mental status, unspecified (principal)
CPT/HCPCS: 80305

== ENCOUNTER 2022-03-08 13:05 | Inpatient (IN) | payer MEDICARE, SELFPAY ==
[2022-03-08] VITALS (33 sets, daily range): BP systolic 49–158; BP diastolic 25–117; PULSE 54–110; RESP 12–20; TEMP 36.6–37.1; O2SAT 85–99; BMI 34.8; BMI 34.9
--- NOTE | 2022-03-08 13:09 | ECG_ITS ---
APPROVED REPORT Exam: Resting ECG HR:78 bpm ECG Measurements Heart Rate 78 AXES [place] 170 P 40 QRSd 148 QRS 9 QT 375 T 31 QTc 409 Conclusion SINUS RHYTHM RIGHT BUNDLE BRANCH BLOCK [120+ ms QRS DURATION, UPRIGHT V1, 40+ ms S IN I/aVL/V4/V5/V6] ABNORMAL ECG UNCONFIRMED REPORT Electronically signed by : Toney Harris MD 03/09/2022 21:27:01
[2022-03-08 13:17] LABS: Influenza A, PCR Not Detected (NotDetected); Influenza B, PCR Not Detected (NotDetected)
--- NOTE | 2022-03-08 13:20 | XR_ITS ---
FINAL REPORT CLINICAL HISTORY: cough COMPARISON: January 19, 2022 FINDINGS: The heart size is normal. The mediastinum is normal. There is some increased opacity at the right base probably due to developing infiltrate. There is associated atelectasis consistent with worsening lower lobe pneumonia. There are no pleural effusions. There is no pneumothorax. There is no osseous abnormality. IMPRESSION: 1. Increased opacity at the right base probably due to developing infiltrate. 2. Atelectasis consistent with coarsening lower lobe pneumonia. Reviewed, Interpreted and Dictated by Rayary Martínez MD Transcribed by Krystina El Authenticated and [facility]
[2022-03-08 13:28] LABS: Basophils % 0.2 % (0.1-2.0); Eosinophils % 0.2 % (0.1-12.0); Hemoglobin 9.8 g/dL (14.1-18.0); Lymphocytes # 0.6 K/mm3 (0.7-4.5); Lymphocytes % 9.1 % (10-50); Mean Corpuscular HGB Conc 31.5 g/dL (31.8-35.4); Mean Corpuscular Hemoglobin 32.7 pg (27.0-31.2); Mean Corpuscular Volume 103.9 fl (80-94); Mean Platelet Volume 9.3 fl (7.4-10.4); Monocytes # 0.4 K/mm3 (0.1-1.0); Monocytes % 6.3 % (1.7-9.3); Neutrophils # 5.1 K/mm3 (1.8-7.8); Neutrophils % 84.1 % (37.0-80.0); Platelet Count 166 K/mm3 (142-424); Red Blood Count 2.99 M/mm3 (4.60-6.20); Red Cell Distribution Width 15.4 % (11.5-17.5); White Blood Count 6.1 K/mm3 (4.8-10.8)
[2022-03-08 13:34] LABS: Alanine Aminotransferase 18 U/L (12-78); Albumin Level 3.3 g/dl (3.5-5.0); Albumin/Globulin Ratio 1.2 (1.1-1.8); Alkaline Phosphatase 93 U/L (38-126); Anion Gap 14.3 mEq/L (5-15); Aspartate Amino Transferase 34 U/L (17-59); Bilirubin,Total 0.5 mg/dl (0.2-1.3); Blood Urea Nitrogen 53 mg/dl (9-20); Calcium 7.8 mg/dl (8.4-10.2); Carbon Dioxide 20 mmol/L (22.0-30.0); Chloride 101 mmol/L (98-107); Creatinine Clearance Estimated 29 mL/min (50-200); Estimated Glomerular Filt Rate 16 ml/min (>60); GFR (African American) 19 ML/MIN (>60); Globulin 2.7 g/dL (1.3-3.2); Glucose 109 mg/dl (74-100); Potassium 4.3 mmoL/L (3.5-5.1); Sodium 131 mmol/L (136-145)
[2022-03-08 13:41] LABS: Coronavirus 19, PCR Detected (NotDetected)
--- NOTE | 2022-03-08 13:43 | HMH.EDWEAK ---
ED Disposition Clinical Impression: Weakness, COVID Kidney injury Qualifiers: Encounter type: initial encounter Laterality: right Qualified Code(s): S37.001A - Unspecified injury of right kidney, initial encounter Pneumonia Qualifiers: Pneumonia type: due to unspecified organism Laterality: right Lung location: lower lobe of lung Qualified Code(s): J18.9 - Pneumonia, unspecified organism Disposition: Admitted As Inpatient Condition on Discharge: Serious - Critical Care Critical Care Time: Yes Attestation: On 03/08/22, the high probability of a clinically significant, sudden or life threatening deterioration of the following system(s) required my full and direct attention, intervention and personal management. The time I documented below is in addition to time spent performing reported procedures but includes the following listed in this critical care notation. Vital system(s) involved:: Circulatory Failure, Renal Failure My critical care processes included: Assessment & monitoring of V/S, Initial and Re-exams, Data Review/Interpretation, Coordinating Care, Medication Orders and management, Documentation Medical Decision Making - Medical Records Medical records reviewed: Yes: I reviewed the patient's medical records. - Willard Inquiry Pt receiving controlled substance: No Vital Signs: 03/08/22 13:06 03/08/22 14:00 03/08/22 14:24 Temperature 98.7 F Temperature Source Oral Pulse Rate 110 H 65 Pulse Rate [Left Radial] 75 Pulse Rate [Right Radial] Respiratory Rate 13 12 13 Blood Pressure 49/25 L 67/33 L Blood Pressure [Left Arm] Blood Pressure [Right Arm] 158/117 H Blood Pressure Mean 33 39 Blood Pressure Mean [Left Arm] Blood Pressure Mean [Right Arm] 130 Blood Pressure Source [Left Arm] Blood Pressure Source [Right Arm] Automatic Cuff Blood Pressure Position [Left Arm] Blood Pressure Position [Right Arm] Sitting 02 Sat by Pulse Oximetry 85 L 96 Oxygen Delivery Method Room Air Oxygen Flow Rate (LPM) 03/08/22 14:30 03/08/22 14:42 03/08/22 14:55 Temperature Temperature Source Pulse Rate 68 Pulse Rate [Left Radial] Pulse Rate [Right Radial] Respiratory Rate 13 13 13 Blood Pressure 68/36 L 67/34 L 79/47 L Blood Pressure [Left Arm] Blood Pressure [Right Arm] Blood Pressure Mean 44 40 56 Blood Pressure Mean [Left Arm] Blood Pressure Mean [Right Arm] Blood Pressure Source [Left Arm] Blood Pressure Source [Right Arm] Blood Pressure Position [Left Arm] Blood Pressure Position [Right Arm] 02 Sat by Pulse Oximetry 91 L Oxygen Delivery Method Oxygen Flow Rate (LPM) 03/08/22 14:56 03/08/22 15:05 03/08/22 15:15 Temperature Temperature Source Pulse Rate 63 70 Pulse Rate [Left Radial] Pulse Rate [Right Radial] Respiratory Rate 15 12 12 Blood Pressure 69/43 L 76/47 L 77/46 L Blood Pressure [Left Arm] Blood Pressure [Right Arm] Blood Pressure Mean 51 54 55 Blood Pressure Mean [Left Arm] Blood Pressure Mean [Right Arm] Blood Pressure Source [Left Arm] Blood Pressure Source [Right Arm] Blood Pressure Position [Left Arm] Blood Pressure Position [Right Arm] 02 Sat by Pulse Oximetry 93 L 93 L 92 L Oxygen Delivery Method Oxygen Flow Rate (LPM) 03/08/22 15:20 03/08/22 15:25 03/08/22 15:30 Temperature Temperature Source Pulse Rate 64 65 63 Pulse Rate [Left Radial] Pulse Rate [Right Radial] Respiratory Rate 13 12 13 Blood Pressure 73/47 L 75/52 L 81/49 L Blood Pressure [Left Arm] Blood Pressure [Right Arm] Blood Pressure Mean 51 58 55 Blood Pressure Mean [Left Arm] Blood Pressure Mean [Right Arm] Blood Pressure Source [Left Arm] Blood Pressure Source [Right Arm] Blood Pressure Position [Left Arm] Blood Pressure Position [Right Arm] 02 Sat by Pulse Oximetry 93 L 98 97 Oxygen Delivery Method Oxygen Flow Rate (LPM) 03/08/22 15:35 08
[2022-03-08 13:46] LABS: Troponin I 0.01 ng/ml (0.00-0.034)
--- NOTE | 2022-03-08 13:52 | CT_ITS ---
PROCEDURE INFORMATION: Exam: CT Head Without Contrast Exam date and time: 03/08/2022 5:00 PM Age: 67 years old Clinical indication: Weakness, extremity; Bilateral; Additional info: Weak TECHNIQUE: Imaging protocol: Computed tomography of the head without contrast. Radiation optimization: All CT scans at this facility use at least one of these dose optimization techniques: automated exposure control; mA and/or kV adjustment per patient size (includes targeted exams where dose is matched to clinical indication); or iterative reconstruction. COMPARISON: CT HEAD/BRAIN WO CON 12/20/2019 6:56 PM FINDINGS: Brain: There is right temporal occipital encephalomalacia. No acute intracranial hemorrhage, midline shift or significant intracranial mass effect. Cerebral ventricles: No hydrocephalus. Paranasal sinuses: Polypoid mucosal disease involving the wozui-cduvhdy-fywu-left maxillary sinus. Mild scattered additional paranasal sinus disease. Mastoid air cells: Mild partial opacification of the right mastoid air cells. Bones/joints: Unremarkable. No acute fracture. Soft tissues: Unremarkable. IMPRESSION: No acute intracranial abnormality.
--- NOTE | 2022-03-08 14:26 | PC.NURSE ---
pt unable to urinate at this time
--- NOTE | 2022-03-08 14:31 | HMH.ITSTN ---
per jacinda do to low BP holding off on CT BRAIN
--- NOTE | 2022-03-08 14:54 | HMH.ITSTN ---
Per October B patient blood pressure still low. still hold off on CT for now.
[2022-03-08 15:56] LABS: Lactic Acid 0.8 mmol/L (0.7-2.1)
--- NOTE | 2022-03-08 16:15 | PC.NURSE ---
Levophed titrated to 9 mcg/minute
--- NOTE | 2022-03-08 17:20 | PC.NURSE ---
Called Antoni Wick at this time, and requested a bed for admission.
--- NOTE | 2022-03-08 17:30 | PC.NURSE ---
Levophed gtt titrated to 10mcg/minute.
--- NOTE | 2022-03-08 17:36 | PC.NURSE ---
Password set up at this time: [email or web address]
--- NOTE | 2022-03-08 17:45 | PC.NURSE ---
Levophed gtt titrated to 11 mcg/minute. Patient was able to void at this time. Urine specimen obtained. Gown put on patient.
--- NOTE | 2022-03-08 17:45 | PC.NURSE ---
Report given to Billie Enamorado RN at this time. Billie Enamorado RN states she will let us know when the room is cleaned and patient is able to come up.
[2022-03-08 18:14] LABS: Microscopic, Urine URINE MICROSCOPIC (MICROSCOPIC)
[2022-03-08 18:15] LABS: Appearance,Urine CLEAR (Clear); Bilirubin,Urine Negative (Negative); Blood, Urine TRACE-I (Negative); Color,Urine YELLOW (Yellow); Glucose,Urine (UA) Negative (Negative); Ketones,Urine Negative (Negative); Leukocyte Esterase,Urine Negative (Negative); Nitrate,Urine Negative (Negative); PH,Urine 5.5 (5.0-8.5); Protein,Urine Negative (Negative); Urobilinogen,Urine 0.2 EU/dl (0.2)
--- NOTE | 2022-03-08 18:18 | PC.NURSE ---
checked on bed status at this time, spoke with sully states they are supposed to be on the way to clean pt assigned room now. updated pt family
[2022-03-08 18:49] LABS: Bacteria,Urine 3+ /lpf
--- NOTE | 2022-03-08 19:05 | PC.NURSE ---
called to check on status of room being ready, states is it drying, it just got finished being cleaned
--- NOTE | 2022-03-08 19:40 | PC.NURSE ---
PT. ARRIVED TO FLOOR VIA STRETCHER AT THIS TIME
--- NOTE | 2022-03-08 19:56 | HMH.HP ---
*Admission Date: 03/08/22 *Chief complaint: covid, pneumonia, weakness, acute kidney injury *History of present illness: c/o weakness that started a week ago. PT states today he couldnt even walk across the porch, weak and stumbling, no appetite since yesterday. workup in the ER yielded positive covid serology. workup also included imaging: CXR: IMPRESSION: 1. Increased opacity at the right base probably due to developing infiltrate. 2. Atelectasis consistent with coarsening lower lobe pneumonia. CT Brain: FINDINGS: Brain: There is right temporal occipital encephalomalacia. No acute intracranial hemorrhage, midline shift or significant intracranial mass effect. Cerebral ventricles: No hydrocephalus. Paranasal sinuses: Polypoid mucosal disease involving the dfysd-qyisknh-bqyi-left maxillary sinus. Mild scattered additional paranasal sinus disease. Mastoid air cells: Mild partial opacification of the right mastoid air cells. Bones/joints: Unremarkable. No acute fracture. Soft tissues: Unremarkable. IMPRESSION: No acute intracranial abnormality. Acute kidney injury noted with creat of 3.8 Became hypotensive in ER, prompting addition of levophed. [facility] History Medical History: Reports:: Cancer, Chronic Obstructive Pulmonary Disease (COPD), Gastroesophageal Reflux Disease(GERD), Hyperlipidemia, Hypertension, Lung Disease Denies:: Diabetes Mellitus Type 1, Diabetes Mellitus Type 2, Internal Pacemaker, MRSA, Renal Disease, Seizures *Have you ever received a pneumonia vaccine?: No *Have you received a flu vaccine this season?: No Other Medical History: Reports: Anemia, Arthritis, Chemotherapy, Hypothyroidism, Radiation Therapy. Denies: Blood Transfusion Reaction Laterality Cases: Left: ACL Repair, Right: Arthroscopy Shoulder, Bilateral: Arthroscopy Knee Other Surgeries: Yes: Cancer Surgery, Cardiac Catheterization, Colonoscopy, EGD, Other. No: Pacemaker Amputation: No Fractures: No - *Social History Smoking Status: Current every day smoker Tobacco Type: cigarettes # Packs/Day (cigarettes): 1 Alcohol Intake: never Substance Use Type: marijuana *Occupational Status:: disabled Housing: house Household Members: significant other *Travel in the last 8 weeks: None Family Hx:: Cancer Review of Systems - Review of Systems Review of systems:: unable to obtain Meds Home Medications Medication Instructions Recorded Confirmed Type Sucralfate [Carafate 1gm Tab] 1 gm PO ACHS 06/26/20 03/08/22 History ondansetron 4 mg disintegrating 4 mg PO Q8H PRN #12 tab 10/15/21 03/08/22 Rx tablet gabapentin 600 mg tablet 600 mg PO TID #90 tab 02/03/22 03/08/22 Rx losartan 100 1 tab PO DAILY #90 tab 02/03/22 03/08/22 Rx mg-hydrochlorothiazide 25 mg tablet oxycodone-acetaminophen 7.5 mg-325 1 tab PO Q6H PRN #120 tab 02/03/22 03/08/22 Rx mg tablet Levothyroxine Sodium [Synthroid 75 mcg PO DAILY 03/08/22 03/08/22 History 75mcg (0.075mg) tablet] Pantoprazole Sodium 40 mg PO DAILY 03/08/22 03/08/22 History Sildenafil Citrate [Revatio] 1 - 2 tab PO DAILYP PRN 03/08/22 03/08/22 History Allergies Allergy/AdvReac Type Severity Reaction Status Date / Time Penicillins [PENICILLINS] Allergy Intermediate Rash/hives Verified 02/03/22 11:15 Exam Vital signs and Labs for Last 24 Hours: Temp Pulse Resp BP Pulse Ox 98.7 F 58 L 13 92/49 L 97 03/08/22 17:27 03/08/22 19:00 03/08/22 19:00 03/08/22 19:00 03/08/22 18:00 Laboratory Results - last 24 hr 03/08/22 13:08: SARS-CoV-2 (PCR) Detected A, Influenza A Untype (PCR) Not detected, Influenza Type B (PCR) Not detected 03/08/22 13:08: WBC 6.1, RBC 2.99 L, Hgb 9.8 L, Hct 31.0 L, MCV 103.9 H, MCH 32.7 H, MCHC 31.5 L, RDW 15.4, Plt Count 166, MPV 9.3, Neut % (Auto) 84.1 H, Lymph % (Auto) 9.1 L, [place] % (Auto) 6.3, Eos % (Auto) 0.2, Baso % (Auto) 0.2, Neut # (Auto) 5.1, Lymph # (Auto) 0.6 L, [place] # (Auto) 0.4, Eos # (Auto) 0.0, Baso # (Auto)
--- NOTE | 2022-03-08 20:06 | PC.NURSE ---
pt arrived to floor from ED with levo gtt at 14 mcg/min
[2022-03-09] VITALS (20 sets, daily range): BP systolic 86–152; BP diastolic 51–84; PULSE 57–71; RESP 16–22; TEMP 36.7–37.2; O2SAT 89–99; BMI 34.4; BMI 34.2
--- NOTE | 2022-03-09 01:15 | PC.NURSE ---
helped pt use urinal and back to bed. Pt had no other needs at this time.
--- NOTE | 2022-03-09 04:52 | PC.NURSE ---
pt very lethargic when arriving to floor, since then pt has become A&Ox4, levo gtt still infusing at 14 mcg/min, attempted to decrease the rate and SBP dropped below 90, SBP has been 80-104, HR has 54-74, no complaints of pain, pt states he feels weak, using urinal with standby assist with 2600 mL out so far this shift, remains on 3L NC with O2 sats 93-99%
--- NOTE | 2022-03-09 05:22 | PC.NURSE ---
Helped pt use the urinal and back in the bed.Pt has no other needs at this time
--- NOTE | 2022-03-09 06:50 | PC.NURSE ---
helped pt with urinal and back to bed. pt has no other needs at this time.
[2022-03-09 06:54] LABS: Chloride 115 mmol/L (98-107); Potassium 4.9 mmoL/L (3.5-5.1); Sodium 141 mmol/L (136-145)
--- NOTE | 2022-03-09 06:54 | PC.NURSE ---
levo gtt currently infusing at 10 mcg/min pt is currently on 2L NC with O2 sat of 99%
[2022-03-09 06:57] LABS: Alanine Aminotransferase 14 U/L (12-78); Albumin Level 3.1 g/dl (3.5-5.0); Albumin/Globulin Ratio 0.9 (1.1-1.8); Alkaline Phosphatase 86 U/L (38-126); Anion Gap 14.9 mEq/L (5-15); Aspartate Amino Transferase 50 U/L (17-59); Bilirubin,Total 0.8 mg/dl (0.2-1.3); Blood Urea Nitrogen 44 mg/dl (9-20); Carbon Dioxide 16 mmol/L (22.0-30.0); Creatinine Clearance Estimated 58 mL/min (50-200); Estimated Glomerular Filt Rate 36 ml/min (>60); GFR (African American) 43 ML/MIN (>60); Globulin 3.5 g/dL (1.3-3.2); Total Protein,Serum 6.6 g/dl (6.3-8.2)
[2022-03-09 06:58] LABS: Calcium 7.8 mg/dl (8.4-10.2); Glucose 146 mg/dl (74-100)
[2022-03-09 07:12] LABS: Basophils % 0.2 % (0.1-2.0); Eosinophils # 0.1 K/mm3 (0.0-0.4); Eosinophils % 2.1 % (0.1-12.0); Hematocrit 33.9 % (42.0-52.0); Hemoglobin 10.1 g/dL (14.1-18.0); Lymphocytes # 0.6 K/mm3 (0.7-4.5); Lymphocytes % 10.3 % (10-50); Mean Corpuscular HGB Conc 29.7 g/dL (31.8-35.4); Mean Corpuscular Hemoglobin 32.4 pg (27.0-31.2); Mean Corpuscular Volume 109.3 fl (80-94); Mean Platelet Volume 8.7 fl (7.4-10.4); Monocytes # 0.4 K/mm3 (0.1-1.0); Neutrophils # 4.9 K/mm3 (1.8-7.8); Neutrophils % 80.3 % (37.0-80.0); Platelet Count 180 K/mm3 (142-424); Red Cell Distribution Width 15.8 % (11.5-17.5); White Blood Count 6.1 K/mm3 (4.8-10.8)
--- NOTE | 2022-03-09 07:29 | HMH.PHAVTE ---
[facility] Pharmacy VTE Monitoring - Patient Demographics Admission date: 03/08/22 Report Date: 03/09/22 Time: 07:29 Allergies/Adverse Reactions: Patient Allergies Penicillins [PENICILLINS] Allergy (Intermediate, Verified 03/08/22 23:06) Rash/hives Height: 1.75 m Weight: 105.46 kg Patient Problems: Current Active Problems Weakness (Acute) Kidney injury (Acute) COVID (Acute) Pneumonia (Acute) Altered mental status (Acute) Renal insufficiency (Acute) Hypothyroidism (Chronic) - VTE Risk Labs: VTE Related Lab Results Hgb 10.1 g/dL (14.1-18.0) L 03/09/22 06:42 Hct 33.9 % (42.0-52.0) L 03/09/22 06:42 Plt Count 180 K/mm3 (142-424) 03/09/22 06:42 BUN 44 mg/dl (9-20) H 03/09/22 05:49 Creatinine 1.90 mg/dl (0.66-1.25) H D 03/09/22 05:49 Estimated Creat Clear 58 mL/min (50-200) 03/09/22 05:49 VTE Score: 10 VTE Risk Level: Moderate Risk - Prophylaxis VTE Prophylaxis Ordered?: Yes Types of VTE Prophylaxis: TEDS Knee High Location of Applied Device: Bilateral Lower Extremeties
--- NOTE | 2022-03-09 09:19 | HMH.PULMCON ---
*Admission Date: 03/08/22 *Reason for consult:: Acute hypoxic respiratory failure, COVID-19 pneumonia *History of present illness: Mr. Ruiz is a 67-year-old male no prior respiratory complaints, not using any home oxygen, not on any home inhalers presented to hospital complaining of weakness and balance issues, presented patient noted to be in respiratory distress, COVID-19 serology positive Also concerning for pneumonia admitted and pulmonary was consulted. He is not vaccinated. He admits sick contacts, his son was recently diagnosed with COVID-19 pneumonia and stayed with him. [facility] History Medical History: Reports:: Cancer, Chronic Obstructive Pulmonary Disease (COPD), Gastroesophageal Reflux Disease(GERD), Hyperlipidemia, Hypertension, Lung Disease Denies:: Diabetes Mellitus Type 1, Diabetes Mellitus Type 2, Internal Pacemaker, MRSA, Renal Disease, Seizures *Have you ever received a pneumonia vaccine?: No *Have you received a flu vaccine this season?: Yes Other Medical History: Reports: Anemia, Arthritis, Chemotherapy, Hypothyroidism, Radiation Therapy. Denies: Blood Transfusion Reaction Laterality Cases: Left: ACL Repair, Right: Arthroscopy Shoulder, Bilateral: Arthroscopy Knee Other Surgeries: Yes: Cancer Surgery, Cardiac Catheterization, Colonoscopy, EGD, Other. No: Pacemaker Amputation: No Fractures: No - *Social History Smoking Status: Current every day smoker Tobacco Type: cigarettes # Packs/Day (cigarettes): 1 Alcohol Intake: former Substance Use Type: marijuana *Occupational Status:: unemployed Housing: house Household Members: significant other *Travel in the last 8 weeks: None Family Hx:: Cancer ROS - Cons Reports anorexia, Reports body ache(s), Reports fatigue - Eyes Reports blurry vision, Denies change in vision - ENT Denies bleeding gums, Denies change in voice - Card Reports shortness of breath, Reports shortness of breath with activity - Resp Respiratory: Reports chest congestion, Reports cough, Denies coughing up blood, Reports cough with sputum production, Denies stridor, Denies wheezing - GI Gastrointestingal: Denies: abdominal pain, cramping - [place] Musculoskeletal: Reports muscle cramps, Reports muscle weakness, Reports muscle aches - Psych Denies thoughts of hurting/killing others, Denies thoughts of hurting/killing yourself Meds Home Medications Medication Instructions Recorded Confirmed Type Sucralfate [Carafate 1gm Tab] 1 gm PO ACHS 06/26/20 03/08/22 History gabapentin 600 mg tablet 600 mg PO TID #90 tab 02/03/22 03/08/22 Rx losartan 100 1 tab PO DAILY #90 tab 02/03/22 03/08/22 Rx mg-hydrochlorothiazide 25 mg tablet oxycodone-acetaminophen 7.5 mg-325 1 tab PO Q6H PRN #120 tab 02/03/22 03/08/22 Rx mg tablet Levothyroxine Sodium [Synthroid 75 mcg PO DAILY 03/08/22 03/08/22 History 75mcg (0.075mg) tablet] Pantoprazole Sodium 40 mg PO DAILY 03/08/22 03/08/22 History Sildenafil Citrate [Revatio] 1 - 2 tab PO DAILYP PRN 03/08/22 03/08/22 History Allergies Allergy/AdvReac Type Severity Reaction Status Date / Time Penicillins [PENICILLINS] Allergy Intermediate Rash/hives Verified 03/08/22 23:06 Exam - Constitutional Constitutional:: Present: no acute distress, comfortable - HENMT Exam HENMT: Present: normocephalic, atraumatic - Eye Exam Eyes:: Present: normal appearance both eyes and related structures, eyelids normal - Neck Exam Neck:: Present: normal visual inspection, thyroid normal - Respiratory Exam Respiratory:: Present: able to speak in complete sentences, no respiratory distress, rales. Absent: wheezing - Cardiovascular Exam Cardiac:: Present: S1, S2 - GI Exam GI:: Present: soft, no hepatosplenomegaly - Skin Exam Skin: Present: warm, no rash - Neurological Exam Neurological: Present: alert, awake - Extremities Exam Extremities: Present: no cyanosis, no clubbing, edema Internal Medicine - CN: Reslt - Labs CBC & Ch
--- NOTE | 2022-03-09 12:45 | HMH.ACPN2 ---
Internal Medicine - PN: Subj *Date: 03/09/22 *Time: 15:38 Interval history: more alert this morning levophed remains on board, good pressures this morning episodic hypoxia noted 02 prongs out of nose a good deal of the time renal function improving with hydration Exam Vital signs and Labs for Last 24 Hours: Temp Pulse Resp BP Pulse Ox 99.0 F 66 22 117/65 93 L 03/09/22 08:00 03/09/22 10:00 03/09/22 10:00 03/09/22 10:00 03/09/22 10:00 Laboratory Results - last 24 hr 03/08/22 13:08: SARS-CoV-2 (PCR) Detected A, Influenza A Untype (PCR) Not detected, Influenza Type B (PCR) Not detected 03/08/22 13:08: WBC 6.1, RBC 2.99 L, Hgb 9.8 L, Hct 31.0 L, MCV 103.9 H, MCH 32.7 H, MCHC 31.5 L, RDW 15.4, Plt Count 166, MPV 9.3, Neut % (Auto) 84.1 H, Lymph % (Auto) 9.1 L, [place] % (Auto) 6.3, Eos % (Auto) 0.2, Baso % (Auto) 0.2, Neut # (Auto) 5.1, Lymph # (Auto) 0.6 L, [place] # (Auto) 0.4, Eos # (Auto) 0.0, Baso # (Auto) 0.0 03/08/22 13:08: Sodium 131 L, Potassium 4.3, Chloride 101, Carbon Dioxide 20 L, Anion Gap 14.3, BUN 53 H, Creatinine 3.80 H, Estimated Creat Clear 29, Estimated GFR 16 L*, Est GFR ( Amer) 19 L*, Glucose 109 H, Calcium 7.8 L, Total Bilirubin 0.5, AST 34, ALT 18, Alkaline Phosphatase 93, Troponin I 0.01, Total Protein 6.0 L, Albumin 3.3 L, Globulin 2.7, Albumin/Globulin Ratio 1.2 03/08/22 14:20: Lactate 0.8 03/08/22 17:58: Urine Color Yellow, Urine Appearance Clear, Urine pH 5.5, Ur Specific [place] 1.010, Urine Protein Negative, Urine Glucose (UA) Negative, Urine Ketones Negative, Urine Blood Trace-i, Urine Nitrate Negative, Urine Bilirubin Negative, Urine Urobilinogen 0.2, Ur Leukocyte Esterase Negative, Urine RBC 3-5, Urine WBC 3-5, Ur Squamous Epith Cells 3-5, Urine Bacteria 3+ 03/09/22 05:49: Sodium 141, Potassium 4.9, Chloride 115 H, Carbon Dioxide 16 L, Anion Gap 14.9, BUN 44 H, Creatinine 1.90 H D, Estimated Creat Clear 58, Estimated GFR 36 L, Est GFR ( Amer) 43 L D, Glucose 146 H D, Calcium 7.8 L, Total Bilirubin 0.8, AST 50 D, ALT 14, Alkaline Phosphatase 86, Total Protein 6.6, Albumin 3.1 L, Globulin 3.5 H, Albumin/Globulin Ratio 0.9 L 03/09/22 06:42: WBC 6.1, RBC 3.10 L, Hgb 10.1 L, Hct 33.9 L, MCV 109.3 H, MCH 32.4 H, MCHC 29.7 L, RDW 15.8, Plt Count 180, MPV 8.7, Neut % (Auto) 80.3 H, Lymph % (Auto) 10.3, [place] % (Auto) 7.0, Eos % (Auto) 2.1, Baso % (Auto) 0.2, Neut # (Auto) 4.9, Lymph # (Auto) 0.6 L, [place] # (Auto) 0.4, Eos # (Auto) 0.1, Baso # (Auto) 0.0 I & O for Last 24 hours: Intake & Output 03/06/22 03/07/22 03/08/22 03/09/22 23:59 23:59 23:59 23:59 Intake Total 46.5 / 46.5 2201 / 2201 Output Total 1500 / 1500 3400 / 3400 Balance -1453.5 / -1453.5 -1199 / -1199 Weight 236 lb 2 oz 231 lb 7.766 oz - Constitutional no acute distress - *Routine HEENT Exam Head: Present: normocephalic Eye: Present: EOMI, PERRL ENT: Present: mucous membranes moist - *Routine Neck Exam Present: supple. Absent: lymphadenopathy - *Routine Respiratory Exam Absent: accessory muscle use, wheezes, crackles - *Routine Cardiovascular Exam Present: RRR - *Routine Abdominal Exam Present: soft, normoactive bowel sounds. Absent: tenderness - *Routine Extremities Exam Absent: cyanosis, clubbing, edema - *Routine Skin Exam Present: warm. Absent: rash - *Routine Neurological Exam Present: alert, oriented X3 Assessment and Plan (1) COVID Status: Acute Category: Medical Code(s): U07.1 - COVID-19 (2) Altered mental status Status: Acute Qualifiers: Altered mental status type: somnolence Qualified Code(s): R40.0 - Somnolence Category: Medical Code(s): R41.82 - Altered mental status, unspecified (3) Kidney injury Status: Acute Qualifiers: Encounter type: initial encounter Laterality: right Qualified Code(s): S37.001A - Unspecified injury of right kidney, initial encounter Category: Medical Code(s): S37.009A - Unspecified injury of unspecified kidne
--- NOTE | 2022-03-09 14:30 | PC.NURSE ---
spoke with md. his noted stated albuterol every 6h. did not see order placed. md stated he would place order;
--- NOTE | 2022-03-09 18:03 | PC.NURSE ---
Pt has slept most of the shift. he is easy to arouse when entering the room, he will also converse with you with no distress noted. lungs are clear with occasional scattered rhonchi that clears easily. bowel sounds are active in all quads. pt is alert and oriented and is able to use the urinal without assistance. the pt does appear to desat when sleeping, o2 has to be repeatedly reapplied because the patient removes it (even after being asked not to). nad
--- NOTE | 2022-03-09 18:05 | PC.NURSE ---
pt levophed drip decreased to 8 mcg at 1745 bp was 144/75
--- NOTE | 2022-03-09 18:26 | PC.NURSE ---
instrusted pt to cough. sputum cup left at bedside
--- NOTE | 2022-03-09 20:07 | PC.NURSE ---
emptied urinal.ptis rest and had no other needs atthis time.
[2022-03-10] VITALS (9 sets, daily range): BP systolic 101–149; BP diastolic 52–94; PULSE 57–77; RESP 16–20; TEMP 36.8–36.9; O2SAT 93–98
--- NOTE | 2022-03-10 02:46 | PC.NURSE ---
pt has rested well this shift, levo turned off at 2330, SBP has remained > 90, no complaints of SOA or pain, remains on 2L NC with O2 sats 91-95%, using urinal independently with 1950 mL out so far this shift
[2022-03-10 08:20] LABS: Alanine Aminotransferase 18 U/L (12-78); Albumin/Globulin Ratio 1.1 (1.1-1.8); Alkaline Phosphatase 90 U/L (38-126); Anion Gap 11.4 mEq/L (5-15); Aspartate Amino Transferase 24 U/L (17-59); Carbon Dioxide 24 mmol/L (22.0-30.0); Chloride 111 mmol/L (98-107); Globulin 2.7 g/dL (1.3-3.2); Potassium 4.4 mmoL/L (3.5-5.1); Sodium 142 mmol/L (136-145); Total Protein,Serum 5.7 g/dl (6.3-8.2)
[2022-03-10 08:21] LABS: Calcium 8.1 mg/dl (8.4-10.2); Glucose 144 mg/dl (74-100)
[2022-03-10 08:43] LABS: Bilirubin,Total < 0.1 mg/dl (0.2-1.3)
[2022-03-10 09:15] LABS: Blood Urea Nitrogen 19 mg/dl (9-20); Creatinine Clearance Estimated 109 mL/min (50-200); Estimated Glomerular Filt Rate 85 ml/min (>60); GFR (African American) 102 ML/MIN (>60)
--- NOTE | 2022-03-10 12:02 | EXP.PULM.PN ---
Subjective *Date: 03/26/22 *Time: 14:17 Interval history: No acute respiratory vents overnight. Continued improving symptoms, weaned to room air Pulmonology Exam Inpatient Vital signs and Labs for Last 24 Hours: Temp Pulse Resp BP Pulse Ox 98.3 F 66 20 140/94 H 94 L 03/10/22 00:00 03/10/22 10:00 03/10/22 10:00 03/10/22 10:00 03/10/22 10:00 Laboratory Results - last 24 hr 03/10/22 05:46: Sodium 142, Potassium 4.4, Chloride 111 H, Carbon Dioxide 24, Anion Gap 11.4, BUN 19 D, Creatinine 0.90 D, Estimated Creat Clear 109, Estimated GFR 85, Est GFR ( Amer) 102 D, Glucose 144 H, Calcium 8.1 L, Total Bilirubin < 0.1 L, AST 24 D, ALT 18 D, Alkaline Phosphatase 90, Total Protein 5.7 L, Albumin 3.0 L, Globulin 2.7, Albumin/Globulin Ratio 1.1 I & O for Labs for Last 24 Hours: Intake & Output 03/07/22 03/08/22 03/09/22 03/10/22 23:59 23:59 23:59 23:59 Intake Total 46.5 / 46.5 6309.569 / 6309.569 10 Output Total 1500 / 1500 5000 / 5000 1150 / 1150 Balance -1453.5 / -1453.5 1309.569 / 1309.569 -1140 / -1140 Weight 236 lb 2 oz 231 lb 7.766 oz Microbiology Reports for the Last 24 Hours: Microbiology 03/10/22 10:15 Sputum - Expectorated Sputum Gram Stain - Final 03/08/22 17:58 Urine,Clean Catch Urine Culture - Preliminary NO GROWTH AFTER 24 HOURS Constitutional: mild distress, cooperative, combative or agitated Head: normocephalic and atraumatic ENT: normal oropharynx and mucous membranes moist Neck: normal inspection and trachea midline Respiratory: able to speak in complete sentences Comment:: No wheezes, No accessory muscle use. No distress Cardiac: S1/S2 and radial pulses present GI: soft, tenderness or guarding Rectal (male): deferred Skin: intact Neuro: alert, awake and oriented x 3 Extremities: edema Comment:: No clubbing and No Cyanosis Psychiatric: normal affect and cooperative Assessment and Plan *Assessment and plan (1) Pneumonia: Status: Resolved Qualifiers: Laterality: right Lung location: lower lobe of lung Pneumonia type: due to unspecified organism Qualified Code(s): J18.9 - Pneumonia, unspecified organism Category: Medical Code(s): J18.9 - Pneumonia, unspecified organism Assessment and plan all Dx Plan of Treatment: #Acute hypoxic respiratory failure: #COVID-19 pneumonia: 67-year-old male, no prior respiratory complaints.? Positive sick contact, son diagnosed with COVID-19 pneumonia.? Did not receive any vaccinations for COVID-19 pneumonia. Patient also admits tested positive for COVID-19 pneumonia in early January 2022 Presented with prominent complaints of weakness and balance issues along with minimal respiratory distress and cough. Chest x-ray admission personally reviewed, bilateral primary lower lobe infiltrates, right greater than left along with possible atelectasis Labs from admission admission personally reviewed, no evidence of leukocytosis.? Significantly elevated creatinine at 3.8 on admission, improved to 1.9. Flu a and B negative , COVID-19 serology positive.? Most recent CT chest from 2020 concerning for bilateral lower lobe interstitial changes. Patient was initiated on ceftriaxone and azithromycin upon admission. Was initiated 2 L oxygen supplementation in the ER. Patient weaned to room air yesterday with saturations dropped to 88% was initiated on active treatment for COVID-19 pneumonia. Interval update: No acute respiratory vents. Continued improvement in symptoms. Patient on room air saturating 92% and above. No evidence of leukocytosis. Renal function continue to improve. Plan: -Incentive spirometry -Albuterol every 6 hours on a scheduled basis -Continue ceftriaxone and azithromycin, , can be weaned to levofloxacin upon discharge. F/u Sputum cultures -Continue nasal cannula as needed maintain O2 saturation goal of 90% above, wean as tolerated. -Continue remdesivir x 5 days OR unt
--- NOTE | 2022-03-10 12:54 | PC.NURSE ---
GAVE PATIENT FLUTTER VALVE AND INSTRUCTED ON USE
--- NOTE | 2022-03-10 15:30 | EXP.DC.SUM ---
General Admission date:: 03/08/22 Discharge date: 03/10/22 HPI HPI HPI: Mr. Ruiz is a 67-year-old male no prior respiratory complaints, not using any home oxygen, not on any home inhalers presented to hospital complaining of weakness and balance issues, presented patient noted to be in respiratory distress, COVID-19 serology positive Also concerning for pneumonia admitted and pulmonary was consulted. He is not vaccinated. He admits sick contacts, his son was recently diagnosed with COVID-19 pneumonia and stayed with him. Exam Data for Last 24 hours Vital signs and Labs for Last 24 Hours: Temp Pulse Resp BP Pulse Ox 98.4 F 77 20 149/87 H 98 03/10/22 04:00 03/10/22 12:00 03/10/22 12:00 03/10/22 12:00 03/10/22 12:00 Laboratory Results - last 24 hr 03/10/22 05:46: Sodium 142, Potassium 4.4, Chloride 111 H, Carbon Dioxide 24, Anion Gap 11.4, BUN 19 D, Creatinine 0.90 D, Estimated Creat Clear 109, Estimated GFR 85, Est GFR ( Amer) 102 D, Glucose 144 H, Calcium 8.1 L, Total Bilirubin < 0.1 L, AST 24 D, ALT 18 D, Alkaline Phosphatase 90, Total Protein 5.7 L, Albumin 3.0 L, Globulin 2.7, Albumin/Globulin Ratio 1.1 I & O for Last 24 hours: Intake & Output 03/08/22 03/09/22 03/10/22 03/11/22 11:59 11:59 11:59 11:59 Intake Total 2247.5 / 2247.5 5931.569 / 5931.569 360 / 360 Output Total 4900 / 4900 2750 / 3150 600 / 600 Balance -2652.5 / -2652.5 3181.569 / 2781.569 -240 / -240 Weight 231 lb 7.766 oz Microbiology Reports for the Last 24 Hours: Microbiology 03/08/22 14:20 Blood Blood Culture - Preliminary NO GROWTH AFTER 48 HOURS 03/08/22 14:20 Blood Blood Culture - Preliminary NO GROWTH AFTER 48 HOURS 03/10/22 10:15 Sputum - Expectorated Sputum Gram Stain - Final 03/08/22 17:58 Urine,Clean Catch Urine Culture - Preliminary NO GROWTH AFTER 24 HOURS Constitutional Constitutional: no acute distress and obese *Routine HEENT Exam Head: Present normocephalic Eye: Present EOMI and PERRL ENT: Present mucous membranes moist *Routine Neck Exam Neck: Absent JVD *Routine Respiratory Exam Respiratory: Present rhonchi *Routine Cardiovascular Exam Cardiovascular: Present RRR and murmur *Routine Abdominal Exam Abdominal: Present soft *Routine Rectal Exam Rectal:: deferred *Routine Genitalia Exam Genitalia:: deferred *Routine Extremities Exam Extremities: Absent calf tenderness *Routine Skin Exam Skin: Present intact *Routine Neurological Exam Neurological: Present alert and CN II-XII intact Routine Psychiatric Exam Psychiatric: Present normal affect Hospital Course Hospital Course Hospital Course: pt has slowly improved on ivf and steroids and antiviral meds - pt was weaned to room air and mounika diet and activity and will be d/c on levoquin Results Data Completed and Pending Labs on day of discharge: Labs from last 24 hours 03/10/22 05:46 Sodium 142 Potassium 4.4 Chloride 111 H Carbon Dioxide 24 Anion Gap 11.4 BUN 19 D Creatinine 0.90 D Estimated Creat Clear 109 Estimated GFR 85 Est GFR ( Amer) 102 D Glucose 144 H Calcium 8.1 L Total Bilirubin < 0.1 L AST 24 D ALT 18 D Alkaline Phosphatase 90 Total Protein 5.7 L Albumin 3.0 L Globulin 2.7 Albumin/Globulin Ratio 1.1 Preliminary micro results at discharge 03/08/22 14:20 Blood Culture - Preliminary Blood NO GROWTH AFTER 48 HOURS 03/08/22 14:20 Blood Culture - Preliminary Blood NO GROWTH AFTER 48 HOURS 03/08/22 17:58 Urine Culture - Preliminary Urine,Clean Catch NO GROWTH AFTER 24 HOURS DS: Diagnosis Discharge Diagnosis (1) Weakness: Status: Acute (2) Pneumonia: Status: Acute (3) COVID-19: Status: Acute (4) History of total knee arthroplasty: Status: Acute (5) Obesity (BMI 30-39.9): Status: Acute (6) Squamous yanci
--- NOTE | 2022-03-10 15:56 | HMH.PHAINT1 ---
Pharmacy Intervention Comments: DISCHARGE MEDICATION COUNSELING PROVIDED. DISCUSSED SHORT-COURSE LEVAQUIN. TAKE DAILY AND SEPARATE FROM SUCRALFATE BY AT LEAST 2 HOURS. MAY TAKE WITH FOOD TO CUT BACK ON GI RELATED SIDE EFFECTS (NAUSEA, VOMITING, DIARRHEA). RARE SIDE EFFECT OF TENDON RUPTURE, GET UP SLOWLY AND DON'T MAKE SUDDEN, CHANGE OF DIRECTION MOVEMENTS. PATIENT VERBALIZED NO QUESTIONS AT THIS TIME.
--- NOTE | 2022-03-12 13:43 | CARE MANAGER ---
Contacted patient related to hospital discharge. Patient states that he is doing better. he does have productive cough, but sputum is clear. He is taking antibiotics and is aware of his follow up appointments. He did have question regarding continuing his antihypertensive, but states he will call Dr. Gonzalez's office about it. MALISSA Licea
== END 2022-03-10 16:55 | disposition home or self-care (01) | DRG 177 ==
LOC: ER 15:48 → 2ND 18:10
PROVIDERS: Internal Medicine Pulmonary Disease; Admitting Provider Family Medicine; Emergency Provider Emergency Medicine; PCP Emergency Medicine; Visit Provider Emergency Medicine
DX: U07.1 COVID-19 (principal); J12.82 Pneumonia due to coronavirus disease 2019; J96.00 Acute respiratory failure, unspecified whether with hypoxia or hypercapnia; N17.9 Acute kidney failure, unspecified; E66.9 Obesity, unspecified; Z68.34 Body mass index [BMI] 34.0-34.9, adult; I10 Essential (primary) hypertension; E03.9 Hypothyroidism, unspecified
CPT/HCPCS: 36415; 70450; 71045; 80053; 81001; 83605; 84484; 85025; 87040; 87070; 87086; 87205; 93005; 94640; 99285; C9803; J0456; J0696; U0003; U0005

== ENCOUNTER → 2022-03-19 13:53 | Outpatient (CLI) | payer MEDICARE, SELFPAY ==
--- NOTE | 2022-03-19 14:02 | CA_ITS ---
FINAL REPORT TECHNIQUE: Color Doppler, duplex Doppler and compression sonography of the left lower extremity deep venous systems was performed. CLINICAL HISTORY: LLE PAIN,EDEMA,NKI FINDINGS: There is no evidence of deep venous thrombosis from the level of the groin to the calf. The veins are patent and compressible. There is a moderate, complex popliteal cyst. IMPRESSION: No evidence of deep venous thrombosis left lower extremity. Moderate, complex popliteal cyst. Reviewed, Interpreted and Dictated by Jeremie Jaramillo III, MD Transcribed by Dayanna Balderrama Authenticated and [facility]
== END ==
LOC: RT 13:56
PROVIDERS: PCP Emergency Medicine; Visit Provider Emergency Medicine
DX: M79.662 Pain in left lower leg (principal); R60.0 Localized edema
CPT/HCPCS: 93971

== ENCOUNTER → 2022-04-08 12:38 | Outpatient (CLI) | payer MEDICARE, SELFPAY ==
--- NOTE | 2022-04-08 12:42 | XR_ITS ---
FINAL REPORT CLINICAL HISTORY: left knee pain FINDINGS: 4 views of the left knee were obtained. There is no acute fracture or dislocation. There is moderate narrowing of the medial compartment joint space. There is sharpening of the tibial spines. There are small osteophytes along the medial joint margin. A trace joint effusion is present. IMPRESSION: Mild to moderate osteoarthritis. Reviewed, Interpreted and Dictated by Rayray Martínez MD Transcribed by Juan A Rae Authenticated and [facility]
== END ==
PROVIDERS: PCP Emergency Medicine; Visit Provider Orthopaedic Surgery
DX: M17.12 Unilateral primary osteoarthritis, left knee (principal)
CPT/HCPCS: 73564

== ENCOUNTER → 2022-04-14 09:40 | Outpatient (CLI) | payer MEDICARE, SELFPAY ==
[2022-04-14 10:45] VITALS: PULSE 81; PULSE 84
== END ==
LOC: RT 09:42
PROVIDERS: PCP Emergency Medicine; Visit Provider Internal Medicine Pulmonary Disease
DX: R06.02 Shortness of breath (principal)
CPT/HCPCS: 94060; 94618; 94640; 94727; 94729

== ENCOUNTER → 2022-04-17 11:06 | Outpatient (CLI) | payer MEDICARE, SELFPAY | PROVIDERS: PCP Emergency Medicine; Visit Provider Surgery | DX: Z01.812 Encounter for preprocedural laboratory examination (principal); Z20.822 Contact with and (suspected) exposure to COVID-19; Z13.810 Encounter for screening for upper gastrointestinal disorder; Z12.11 Encounter for screening for malignant neoplasm of colon | CPT/HCPCS: C9803; U0003; U0005 ==

== ENCOUNTER 2022-04-20 08:57 | Day surgery (SDC) | payer MEDICARE, SELFPAY ==
[2022-04-16 15:32] VITALS: BMI 32.7
[2022-04-20 09:14] VITALS: BP 138/90; PULSE 69; RESP 18; TEMP 36.9; O2SAT 97
--- NOTE | 2022-04-20 09:35 | P.PN_ITS ---
[facility] Medical History Acute right flank pain Allergies Arthritis Bakers cyst CKD (chronic kidney disease) stage 3, GFR 30-59 ml/min Diverticulitis Drug overdose Fracture of toe History of colon polyps History of COVID-19 History of gastroesophageal reflux (GERD) Hyperlipidemia Hypertension Hypothyroid Overactive bladder Pneumonia Sexual dysfunction Squamous cell carcinoma Surgical History H/O colonoscopy History of total knee arthroplasty S/P skin cancer resection Family History Mother Breast cancer Father Lung cancer Family history of hypertension Grandfather Colon cancer Family history of hypertension Social History (Updated 04/20/22 @ 09:27 by Zoë Raza, RN) Smoking Status: Current every day smoker tobacco type: cigarettes packs per day: 1 years smoked: 1 second hand exposure: Yes alcohol intake: never substance use type: marijuana current occupational status: disabled Travel in the last 8 weeks: None household members: significant other housing: house current occupational exposures/hazards: No caffeine: Yes [facility] Anesthesia Checklist Patient Identification Patient Identification: Arm Band Structural Data Admitted From: Home Planned Operative Procedure/s: egd/colonoscopy Consent for Planned Operative Procedure(s) Verified: Yes Verified Documents: Surgical Consent and History and Physical NPO Status Verified Time NPO: 00:00 Additional verifications Anesthesia Reactions: No Hx Blood Transfusions: No Blood Transfusion Reaction: No Airway Assessment C-Spine Mobility Assessed: Yes TMJ Mobility Assessed: Yes Dentition: Edentulous Neurological Assessment Level of Consciousness: Awake and Alert Anesthesia Plan Anesthesia Risk discussed: Yes Anesthesia Plan: Verified ASA Class: II Anesthesia Type: MAC
[2022-04-20 09:46] VITALS: O2SAT 97
--- NOTE | 2022-04-20 10:52 | P.PCN_ITS ---
Procedure: Date: 04/20/22 Patient Date of :: 1955 Procedure Performed:: Esophagogastroduodenoscopy with biopsy Colonoscopy with biopsy and polypectomy Indications:: History of peptic ulcer disease History of colon polyps The patient has a complex history of peptic ulcer disease and underwent EGD/colonoscopy in April 2020. He was found to have a complex lobulated antral ulcer with fibrinous exudate at the base. Bowel preparation was moderate for colonoscopy. He did have significant spasticity and lack of relaxation. Scattered diverticulosis confirmed. Adenomas at 55 cm and at 15 cm were e xcised. Repeat EGD in August 2020 revealed essentially healed prepyloric ulcerations but persistent inflammatory changes. Follow-up CT scan for vague abdominal pain did reveal umbilical and suprau mbilical hernias with incarcerated fat. Performing Provider:: Mal Waller MD Referring Provider:: . Sedation:: Monitored anesthesia care Procedure:: After informed consent was obtained the patient was taken to the endoscopy suite. Sedation ensued after the patient was transferred to the left lateral decubitus position. Pulse, blood pressure, and oxygen saturation were monitored throughout the procedure. The endoscope was advanced beyond the duodenal bulb. Retroflexion within the gastric lumen was accomplished. The gastroscope was carefully removed. Digital rectal exam revealed no significant abnormality. The colonoscope was placed in position. The entire colon was evaluated. The colonoscope was carefully removed and the patient was transferred to recovery in stable condition. Please see findings and specimens below for detail. Findings:: Patchy gastritis (moderate to severe in the mid and distal stomach) Essentially healed ulcerations with persistent shallow linear changes along mid gastric body and antrum Bowel preparation moderate to poor Profound lack of relaxation Unchanged diverticulosis Shallow ulcerated cecal lesion Right colon polyp Polyp at 50 cm Specimens:: Antral biopsy Distal gastric body biopsy Sessile cecal ulcerated lesion biopsy Right colon polyp (cold biopsy forceps) Polyp at 50 cm (cold snare) --- Note: Secondary to significant stool burden this polyp could not be confirmed in terms of retrieval Recommendations:: Follow-up pathology Ongoing discussion with regard to herniations Short-term repeat colonoscopy for reevaluation of ulcerative lesion unless pathology confirms neoplastic change Continue proton pump inhibition Complications:: No immediate Estimated blood obtained (mL): 1
[2022-04-20 10:58] VITALS: BP 106/70; PULSE 89; RESP 16; TEMP 36.3; O2SAT 98
[2022-04-20 11:08] VITALS: BP 123/71; PULSE 83; RESP 16; O2SAT 97
[2022-04-20 11:18] VITALS: BP 133/73; PULSE 82; RESP 16; O2SAT 98
[2022-04-20 11:28] VITALS: BP 110/80; PULSE 79; RESP 16; O2SAT 98
== END 2022-04-20 11:28 | disposition home or self-care (01) ==
PROVIDERS: PCP Emergency Medicine; Visit Provider Surgery
PROC: 0DJ08ZZ Inspection of Upper Intestinal Tract, Via Natural or Artificial Opening Endoscopic (ICD-10-PCS; CPT 43235; principal; 2022-04-20 10:00)
DX: Z12.11 Encounter for screening for malignant neoplasm of colon (principal); R13.10 Dysphagia, unspecified; F17.210 Nicotine dependence, cigarettes, uncomplicated; Z79.899 Other long term (current) drug therapy; Z86.010 Personal history of colon polyps; K63.5 Polyp of colon
CPT/HCPCS: 43239; 45380; 45385; 88305; J2704

== ENCOUNTER → 2022-04-30 11:40 | Outpatient (CLI) | payer MEDICARE, SELFPAY ==
[2022-04-30 19:02] LABS: Amphetamine/Metha Screen,Urine Negative ng/ml (<1000); Barbiturates Screen,Urine Negative ng/ml (<200)
[2022-04-30 19:03] LABS: Benzodiazepines Screen,Urine Negative ng/ml (<200)
[2022-04-30 19:04] LABS: Cannabinoid Screen,Urine Negative ng/ml (<50); Cocaine Screen,Urine Negative ng/ml (<300)
[2022-04-30 19:05] LABS: Methadone Screen,Urine Negative ng/ml (<300)
[2022-04-30 19:06] LABS: Opiate Screen,Urine Positive ng/ml (<300); Phencyclidine Screen,Urine Negative ng/ml (<25)
== END ==
PROVIDERS: PCP Emergency Medicine; Visit Provider Emergency Medicine
DX: Z79.899 Other long term (current) drug therapy (principal)
CPT/HCPCS: 80305

== ENCOUNTER → 2022-06-28 21:41 | Outpatient (CLI) | payer MEDICARE, SELFPAY ==
[2022-06-28 19:43] LABS: Amphetamine/Metha Screen,Urine Negative ng/ml (<1000)
[2022-06-28 19:44] LABS: Barbiturates Screen,Urine Negative ng/ml (<200)
[2022-06-28 19:46] LABS: Benzodiazepines Screen,Urine Positive ng/ml (<200); Cannabinoid Screen,Urine Negative ng/ml (<50)
[2022-06-28 19:47] LABS: Cocaine Screen,Urine Negative ng/ml (<300); Methadone Screen,Urine Negative ng/ml (<300)
[2022-06-28 19:48] LABS: Opiate Screen,Urine Negative ng/ml (<300)
[2022-06-28 19:49] LABS: Phencyclidine Screen,Urine Negative ng/ml (<25)
== END ==
PROVIDERS: Visit Provider Emergency Medicine
DX: Z79.899 Other long term (current) drug therapy (principal)
CPT/HCPCS: 80305

== ENCOUNTER 2022-07-30 15:08 | Emergency (ER) | payer MEDICARE, SELFPAY ==
[2022-07-30] VITALS (7 sets, daily range): BP systolic 86–130; BP diastolic 52–92; PULSE 59–69; RESP 16–20; TEMP 36.4; O2SAT 97–100; BMI 33.8; BMI 32.5
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
--- NOTE | 2022-07-30 15:10 | PC.NURSE ---
EMS c-spine stabilizer removed and c-collar placed, c-spine protected during intervention. assisted in change out.
--- NOTE | 2022-07-30 15:11 | PC.NURSE ---
pt wallet, $226 in bautista (witnessed by Derian), cell phone, belt, shoes, socks and keys placed in pt belonging bag
--- NOTE | 2022-07-30 15:12 | PC.NURSE ---
pt log rolled with c-spine support to inspect pt back and removed ems back board, pt tolerated well. present
--- NOTE | 2022-07-30 15:13 | PC.NURSE ---
second IV obtained in right AC per Derian Clinical Ob. IV bolus
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
--- NOTE | 2022-07-30 15:20 | PC.NURSE ---
CPD at bs
--- NOTE | 2022-07-30 15:32 | PC.NURSE ---
Called [facility] to talk to
--- NOTE | 2022-07-30 15:40 | PC.NURSE ---
on the phone with from [facility]
--- NOTE | 2022-07-30 15:44 | PC.NURSE ---
verbal ordered for emergent blood. Lab contacted at this time.
[2022-07-30 15:48] LABS: Chloride 104 mmol/L (98-107); Potassium 4.1 mmoL/L (3.5-5.1); Sodium 137 mmol/L (136-145)
[2022-07-30 15:51] LABS: Activated Partial Thrombo Time 29.6 seconds (22.8-30.6); Alanine Aminotransferase 16 U/L (12-78); Albumin Level 3.9 g/dl (3.5-5.0); Albumin/Globulin Ratio 1.5 (1.1-1.8); Alkaline Phosphatase 75 U/L (38-126); Anion Gap 12.1 mEq/L (5-15); Aspartate Amino Transferase 42 U/L (17-59); Bilirubin,Total 0.4 mg/dl (0.2-1.3); Blood Urea Nitrogen 43 mg/dl (9-20); Carbon Dioxide 25 mmol/L (22.0-30.0); Creatinine Clearance Estimated 37 mL/min (50-200); Estimated Glomerular Filt Rate 23 ml/min (>60); GFR (African American) 28 ML/MIN (>60); Globulin 2.6 g/dL (1.3-3.2); INR 0.87 (0.9-1.1); Prothrombin Time 9.5 seconds (10.1-12.5); Total Protein,Serum 6.5 g/dl (6.3-8.2)
[2022-07-30 15:52] LABS: Calcium 8.1 mg/dl (8.4-10.2); Glucose 113 mg/dl (74-100)
--- NOTE | 2022-07-30 16:03 | PC.NURSE ---
Physician signed for emergent blood, verified with Lyle MOJICA pt blood, type, and appearance of blood, no issues noted at this time.
--- NOTE | 2022-07-30 16:03 | PC.NURSE ---
[facility] notified to transfer patient to [facility]
--- NOTE | 2022-07-30 16:05 | PC.NURSE ---
Addendum entered by Mattie Jimenez RN 07/30/22 18:28: blood unit number [id number]. Original Note: emergent blood hung at this time, myself stayed at the bs t/o pt transfusion. Pt tolerated well.
--- NOTE | 2022-07-30 16:25 | PC.NURSE ---
blood completed at this time.
--- NOTE | 2022-07-30 16:30 | PC.NURSE ---
oconnell cath inserted and pt urine sample sent to lab
--- NOTE | 2022-07-30 16:45 | PC.NURSE ---
PT asking to call his son to update on his current status. Jose Alfredo pt son was contacted notified per pt request. Son is on his way
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
--- NOTE | 2022-07-30 17:00 | PC.NURSE ---
PT BEING TRANSPORTED TO [facility]
--- NOTE | 2022-07-30 17:11 | PC.NURSE ---
report called to Yudi LEONARDO
--- NOTE | 2022-07-30 17:15 | PC.NURSE ---
report given to [facility], pt left with EMS for transport
--- NOTE | 2022-07-30 17:50 | INFXCTL.NOTE ---
c spine stabilizer per EMS was removed and c-collar placed. c-spine protected during intervention
[2022-07-30 18:42] LABS: Microscopic, Urine URINE MICROSCOPIC (MICROSCOPIC)
[2022-07-30 18:44] LABS: Appearance,Urine CLEAR (Clear); Bilirubin,Urine Negative (Negative); Blood, Urine 1+ (Negative); Color,Urine YELLOW (Yellow); Glucose,Urine (UA) Negative (Negative); Ketones,Urine Negative (Negative); Leukocyte Esterase,Urine Negative (Negative); Nitrate,Urine Negative (Negative); Protein,Urine Negative (Negative); Specific Gravity, Urine 1.015 (1.005-1.030); Urobilinogen,Urine 0.2 EU/dl (0.2)
[2022-07-30 18:58] LABS: Amphetamine/Metha Screen,Urine Negative ng/ml (<1000)
[2022-07-30 18:59] LABS: Barbiturates Screen,Urine Negative ng/ml (<200); Benzodiazepines Screen,Urine Negative ng/ml (<200)
[2022-07-30 19:00] LABS: Cannabinoid Screen,Urine Positive ng/ml (<50); Cocaine Screen,Urine Negative ng/ml (<300)
[2022-07-30 19:01] LABS: Methadone Screen,Urine Negative ng/ml (<300)
[2022-07-30 19:02] LABS: Opiate Screen,Urine Positive ng/ml (<300); Phencyclidine Screen,Urine Negative ng/ml (<25)
[2022-07-30 19:10] LABS: RBC,Urine Occasional #/hpf (0-3)
== END 2022-07-30 17:16 | disposition short-term general hospital (02) ==
PROVIDERS: Emergency Provider Student in an Organized Health Care Education/Training Program
DX: S32.810A Multiple fractures of pelvis with stable disruption of pelvic ring, initial encounter for closed fracture (principal); V49.40XA Driver injured in collision with unspecified motor vehicles in traffic accident, initial encounter; M25.561 Pain in right knee; M25.562 Pain in left knee; Z23 Encounter for immunization
CPT/HCPCS: 71045; 72170; 80053; 80305; 81001; 85610; 85730; 86850; 90471; 99291; G0390; P9016

== ENCOUNTER → 2022-08-25 10:10 | Outpatient (CLI) | payer MEDICARE, SELFPAY ==
[2022-08-25 16:42] LABS: Amphetamine/Metha Screen,Urine Negative ng/ml (<1000); Barbiturates Screen,Urine Negative ng/ml (<200); Benzodiazepines Screen,Urine Negative ng/ml (<200); Cannabinoid Screen,Urine Negative ng/ml (<50); Cocaine Screen,Urine Negative ng/ml (<300); Methadone Screen,Urine Negative ng/ml (<300); Opiate Screen,Urine Negative ng/ml (<300); Phencyclidine Screen,Urine Negative ng/ml (<25)
== END ==
PROVIDERS: PCP Emergency Medicine; Visit Provider Emergency Medicine
DX: Z79.899 Other long term (current) drug therapy (principal)
CPT/HCPCS: 80305

== ENCOUNTER 2022-09-01 21:47 | Emergency (ER) | payer MEDICARE, SELFPAY ==
[2022-09-01] VITALS (11 sets, daily range): BP systolic 73–103; BP diastolic 37–62; PULSE 71–82; RESP 16–20; TEMP 36.6; O2SAT 95–98; BMI 32.3
[2022-09-01 22:44] LABS: Chloride 106 mmol/L (98-107); Potassium 3.4 mmoL/L (3.5-5.1); Sodium 139 mmol/L (136-145)
[2022-09-01 22:47] LABS: Alanine Aminotransferase 18 U/L (12-78); Albumin Level 3.5 g/dl (3.5-5.0); Albumin/Globulin Ratio 1.3 (1.1-1.8); Alkaline Phosphatase 73 U/L (38-126); Anion Gap 14.4 mEq/L (5-15); Aspartate Amino Transferase 20 U/L (17-59); Bilirubin,Total 0.4 mg/dl (0.2-1.3); Blood Urea Nitrogen 36 mg/dl (9-20); Carbon Dioxide 22 mmol/L (22.0-30.0); Creatinine Clearance Estimated 48 mL/min (50-200); Estimated Glomerular Filt Rate 30 ml/min (>60); GFR (African American) 37 ML/MIN (>60); Globulin 2.6 g/dL (1.3-3.2); Glucose 102 mg/dl (74-100); Total Protein,Serum 6.1 g/dl (6.3-8.2)
[2022-09-01 22:49] LABS: Basophils # 0.1 K/mm3 (0-0.2); Basophils % 0.5 % (0.1-2.0); Eosinophils # 0.1 K/mm3 (0.0-0.4); Eosinophils % 1.3 % (0.1-12.0); Hematocrit 32.6 % (42.0-52.0); Hemoglobin 10.8 g/dL (14.1-18.0); Lymphocytes # 0.8 K/mm3 (0.7-4.5); Mean Corpuscular HGB Conc 33.2 g/dL (31.8-35.4); Mean Corpuscular Hemoglobin 32.2 pg (27.0-31.2); Mean Platelet Volume 8.2 fl (7.4-10.4); Monocytes # 0.5 K/mm3 (0.1-1.0); Monocytes % 4.5 % (1.7-9.3); Neutrophils # 8.6 K/mm3 (1.8-7.8); Neutrophils % 85.7 % (37.0-80.0); Platelet Count 183 K/mm3 (142-424); Red Blood Count 3.36 M/mm3 (4.60-6.20); Red Cell Distribution Width 15.2 % (11.5-17.5)
[2022-09-01 22:49] LABS: Coronavirus 19, PCR Not Detected (NotDetected); Influenza A, PCR Not Detected (NotDetected); Influenza B, PCR Not Detected (NotDetected)
[2022-09-01 22:51] LABS: MANUAL DIFFERENTIAL MANUAL DIFFERENTIAL (MANUAL DIFF)
[2022-09-01 23:13] LABS: T4 (Thyroxine) 4.5 ug/dl (5.53-11.0)
[2022-09-01 23:15] LABS: Activated Partial Thrombo Time 28.5 seconds (22.8-30.6); INR 0.97 (0.9-1.1); Prothrombin Time 10.5 seconds (10.1-12.5)
--- NOTE | 2022-09-01 23:16 | CT_ITS ---
PROCEDURE INFORMATION: Exam: CT Head Without Contrast Exam date and time: 09/01/2022 11:27 PM Age: 67 years old Clinical indication: Altered mental status/memory loss; Patient HX: HX of stroke per family. ; Additional info: Lethargy TECHNIQUE: Imaging protocol: Computed tomography of the head without contrast. Radiation optimization: All CT scans at this facility use at least one of these dose optimization techniques: automated exposure control; mA and/or kV adjustment per patient size (includes targeted exams where dose is matched to clinical indication); or iterative reconstruction. Other protocol: This patient has received 3 known CTs and 0 known cardiac nuclear medicine studies in the 12 months prior to the current study. COMPARISON: CT HEAD/BRAIN WO CON 03/08/2022 5:00 PM FINDINGS: Brain: No evidence for intracranial hemorrhage, mass lesions or acute stroke. Redemonstration of low-density area right posterior temporal lobe similar to 03/08/2022 consistent with remote infarct. There is also low-density in the right occipital lobe similar to the previous exam which also may represent remote infarct. Mild small vessel ischemic change in the periventricular white matter.Intracranial vascular calcifications. Cerebral ventricles: No ventriculomegaly. Paranasal sinuses: Mild partial opacification ethmoid air cells. Mastoid air cells: Visualized mastoid air cells are well aerated. Bones/joints: Unremarkable. No acute fracture. Soft tissues: Unremarkable. IMPRESSION: 1. No evidence for intracranial hemorrhage, mass lesions or acute stroke. 2. Redemonstration of low-density area right posterior temporal lobe similar to 03/08/2022 consistent with remote infarct. 3. There is also low-density in the right occipital lobe similar to the previous exam which also may represent remote infarct. 4. Mild small vessel ischemic change in the periventricular white matter.Intracranial vascular calcifications. 5. Mild partial opacification ethmoid air cells.
--- NOTE | 2022-09-01 23:23 | PC.NURSE ---
Per s/o, patient has been very tired at home. She said that he has difficulty staying awake and will often nod off during their conversations. She states that the patient has not taken his pain medication or other sedating medications in two days, however, patient states that he took his medications today, however, he vomited an hour after taking his medications so he doesn't believe that they are working for him.
[2022-09-01 23:26] LABS: Lymphocytes % 9 % (10-50); Monocytes % 5 % (2-9); Neutrophils % 85 % (42-76); Platelet Estimate Normal; RBC Morphology Normal; Total Cells Counted 100
[2022-09-01 23:27] LABS: Thyroid Stimulating Hormone 2.66 uIU/mL (0.465-4.68)
--- NOTE | 2022-09-01 23:31 | PC.NURSE ---
pt back from scan
--- NOTE | 2022-09-01 23:45 | XR_ITS ---
PROCEDURE INFORMATION: Exam: XR Chest Exam date and time: 09/02/2022 12:00 AM Age: 67 years old Clinical indication: Cough TECHNIQUE: Imaging protocol: Radiologic exam of the chest. Views: 1 view. COMPARISON: CR XR CHEST PORTABLE 07/30/2022 3:33 PM FINDINGS: Lungs: No focal infiltrates. Pleural spaces: Unremarkable. No pleural effusion. No pneumothorax. Heart/Mediastinum: Mild cardiomegaly. Vasculature: Normal to be vessels. Bones/joints: Unremarkable. IMPRESSION: 1. Mild cardiomegaly. 2. Normal to be vessels. 3. No focal infiltrates.
--- NOTE | 2022-09-01 23:52 | HMH.EDNVD ---
Discharge Plan Disposition Patient Disposition: Home, Self-Care Prescriptions Prescriptions: New ondansetron HCl 4 mg Tablet 4 mg PO Q8H PRN (Reason: Nausea) Qty: 30 0RF No Action losartan-hydrochlorothiazide 100-25 mg tablet 1 tab PO DAILY Qty: 90 3RF amlodipine 5 mg tablet 5 mg PO DAILY azelastine 137 mcg (0.1 %) aerosol,spray 2 spray intranasal HS 90 Days Qty: 30 3RF Rx Instructions: administer into each nostril montelukast 10 mg tablet 10 mg PO DAILY 90 Days Qty: 90 3RF tamsulosin [Flomax] 0.4 mg capsule 0.4 mg PO DAILY Qty: 30 1RF finasteride [Proscar] 5 mg tablet 5 mg PO DAILY Qty: 30 1RF aspirin [Adult Aspirin Regimen] 81 mg tablet,delayed release (DR/EC) 81 mg PO DAILY atorvastatin 40 mg tablet 40 mg PO HS enoxaparin [Lovenox] 30 mg/0.3 mL syringe 30 mg SQ Q12H levothyroxine 100 mcg capsule 100 mcg PO DAILY melatonin 3 mg capsule 3 mg PO HS PRN methocarbamol 500 mg tablet 1,000 mg PO QID nicotine 14 mg/24 hr patch 24 hour 1 patch transdermal DAILY clonazepam [Klonopin] 0.5 mg tablet 0.5 mg PO BID Qty: 60 1RF gabapentin 600 mg tablet 600 mg PO TID Qty: 90 1RF oxycodone-acetaminophen [Percocet] 7.5-325 mg tablet 1 tab PO Q6H PRN (Reason: pain) Qty: 120 0RF pantoprazole 40 mg tablet,delayed release (DR/EC) See Rx Instructions .ROUTE .COMPLEX Qty: 60 0RF Dose Instruction: TAKE ONE TABLET BY MOUTH ONCE A DAY Rx Instructions: TAKE ONE TABLET BY MOUTH ONCE A DAY sildenafil (pulm.hypertension) 20 MG tablet 1 - 2 tab PO DAILYP PRN (Reason: Sexual Activity) Rx Instructions: One to Two tablets prn PRN; peg 3350-electrolytes [Golytely] 236-22.74-6.74 -5.86 gram recon soln 240 ml PO Q10M Rx Instructions: until fecal effluent is clear Referrals Follow up/Referrals: John Gonzalez MD [Primary Care Provider] - See instructions Clinical Impressions Clinical Impression: Gastroenteritis Instructions Patient Instructions: DI for Diarrhea and Traveler's Diarrhea -- Adult, DI for Nausea -- Adult Discharge ED Provider: Carlos (ED)John Nausea/Vomiting/Diarrhea HPI General Chief complaint: Nausea/Vomiting/Diarrhea Stated complaint: V&D weakness Time Seen by Provider: 09/01/22 22:00 Mode of Arrival: Wheelchair Source of Information: Patient, Significant Other and Medical Record Limitations: No Limitations Description of Symptoms (Recalled from ER Triage Doc. by RN): pt states that he began having nausea/vomiting/diarrhea last Tuesday. Was treating the symptoms with zofran but ran out of medicine yesterday. Today he became dizzy and the vomiting and diarrhea has continued. He was afraid he was becoming dehydrated so he came to the er for evaluation. History of Present Illness HPI Narrative: over the last few days has vomiting and diarrhea w/o blood - no pain meds but taking neurotin and other meds - concerned about possible dehydration MD complaint: nausea, vomiting and diarrhea Onset (ago): day(s) Associated Abdominal Pain: No Severity: moderate Associated symptoms: denies other symptoms Related Data Home Medications Medication Instructions Recorded Confirmed sildenafil (pulm.hypertension) 20 1 - 2 tab PO DAILYP PRN Sexual 03/08/22 08/25/22 mg tablet Activity amlodipine 5 mg tablet 5 mg PO DAILY High blood pressure 03/19/22 08/25/22 peg 3350-electrolytes 236 240 ml PO Q10M bowel prep 04/20/22 08/25/22 gram-22.74 gram-6.74 gram-5.86 gram solution (Golytely) aspirin 81 mg tablet,delayed 81 mg PO DAILY 08/25/22 08/25/22 release (Adult Aspirin Regimen) atorvastatin 40 mg tablet 40 mg PO HS 08/25/22 08/25/22 enoxaparin 30 mg/0.3 mL 30 mg SQ Q12H 08/25/22 08/25/22 subcutaneous syringe (Lovenox) levothyroxine 100 mcg capsule 100 mcg PO DAILY 08/25/22 08/25/22 melatonin 3 mg capsule 3 mg PO HS PRN 08/25/22 08/25/22 methocarbamol 500 mg table
[2022-09-01 23:59] LABS: Amylase 40 U/L (30-110); Lipase 55 U/L (23-300)
[2022-09-02] LABS: Lactic Acid 1.3 mmol/L (0.7-2.1)
[2022-09-02 00:28] LABS: Microscopic, Urine URINE MICROSCOPIC (MICROSCOPIC)
[2022-09-02 00:32] LABS: Appearance,Urine CLEAR (Clear); Bilirubin,Urine Negative (Negative); Blood, Urine Negative (Negative); Color,Urine YELLOW (Yellow); Glucose,Urine (UA) Negative (Negative); Ketones,Urine Negative (Negative); Leukocyte Esterase,Urine Negative (Negative); Nitrate,Urine Negative (Negative); Protein,Urine Negative (Negative); Urobilinogen,Urine 0.2 EU/dl (0.2)
[2022-09-02 00:42] LABS: Bacteria,Urine 1+ /lpf; Mucus,Urine 1+ /lpf
[2022-09-02 02:27] VITALS: BP 140/81; PULSE 68; RESP 18; TEMP 36.6; O2SAT 99
== END 2022-09-02 02:29 | disposition home or self-care (01) ==
PROVIDERS: Emergency Provider Emergency Medicine; PCP Emergency Medicine
DX: K52.9 Noninfective gastroenteritis and colitis, unspecified (principal); J30.9 Allergic rhinitis, unspecified; N18.30 Chronic kidney disease, stage 3 unspecified; Z86.16 Personal history of COVID-19; K21.9 Gastro-esophageal reflux disease without esophagitis; E78.5 Hyperlipidemia, unspecified; I10 Essential (primary) hypertension; F17.210 Nicotine dependence, cigarettes, uncomplicated; Z85.9 Personal history of malignant neoplasm, unspecified; Z96.659 Presence of unspecified artificial knee joint; Z82.49 Family history of ischemic heart disease and other diseases of the circulatory system; Z80.3 Family history of malignant neoplasm of breast; Z80.1 Family history of malignant neoplasm of trachea, bronchus and lung; Z20.822 Contact with and (suspected) exposure to COVID-19
CPT/HCPCS: 36415; 70450; 71045; 80053; 81001; 82150; 83605; 83690; 84436; 84443; 85007; 85025; 85610; 85730; 96361; 96374; 99285; C9803; J2405; U0003; U0005

== ENCOUNTER → 2022-10-20 10:10 | Outpatient (CLI) | payer MEDICARE, SELFPAY ==
[2022-10-20 19:23] LABS: Amphetamine/Metha Screen,Urine Negative ng/ml (<1000)
[2022-10-20 19:26] LABS: Barbiturates Screen,Urine Negative ng/ml (<200); Benzodiazepines Screen,Urine Negative ng/ml (<200)
[2022-10-20 19:27] LABS: Cannabinoid Screen,Urine Negative ng/ml (<50)
[2022-10-20 19:28] LABS: Cocaine Screen,Urine Negative ng/ml (<300)
[2022-10-20 19:29] LABS: Methadone Screen,Urine Negative ng/ml (<300); Opiate Screen,Urine Negative ng/ml (<300)
[2022-10-20 19:30] LABS: Phencyclidine Screen,Urine Negative ng/ml (<25)
== END ==
PROVIDERS: PCP Emergency Medicine; Visit Provider Emergency Medicine
DX: Z79.899 Other long term (current) drug therapy (principal)
CPT/HCPCS: 80305

== ENCOUNTER → 2022-12-17 10:01 | Outpatient (CLI) | payer MEDICARE, SELFPAY ==
[2022-12-17 19:04] LABS: Benzodiazepines Screen,Urine Negative ng/ml (<200)
[2022-12-17 19:05] LABS: Amphetamine/Metha Screen,Urine Negative ng/ml (<1000); Barbiturates Screen,Urine Negative ng/ml (<200)
[2022-12-17 19:06] LABS: Cannabinoid Screen,Urine Positive ng/ml (<50)
[2022-12-17 19:07] LABS: Cocaine Screen,Urine Negative ng/ml (<300); Methadone Screen,Urine Negative ng/ml (<300)
[2022-12-17 19:08] LABS: Opiate Screen,Urine Negative ng/ml (<300); Phencyclidine Screen,Urine Negative ng/ml (<25)
== END ==
PROVIDERS: PCP Emergency Medicine; Visit Provider Emergency Medicine
DX: G89.29 Other chronic pain (principal)
CPT/HCPCS: 80305

== ENCOUNTER → 2022-12-22 13:30 | Outpatient (CLI) | payer MEDICARE, SELFPAY | PROVIDERS: PCP Emergency Medicine; Visit Provider Physician Assistant | DX: I10 Essential (primary) hypertension (principal); I45.2 Bifascicular block; R94.31 Abnormal electrocardiogram [ECG] [EKG]; Z72.0 Tobacco use; I65.23 Occlusion and stenosis of bilateral carotid arteries | CPT/HCPCS: 93306 ==

== ENCOUNTER → 2023-02-14 13:23 | Outpatient (CLI) | payer MEDICARE, SELFPAY ==
[2023-02-14 12:47] LABS: Basophils % 0.6 % (0.1-2.0); Eosinophils # 0.1 K/mm3 (0.0-0.4); Eosinophils % 1.4 % (0.1-12.0); Hematocrit 42.9 % (42.0-52.0); Lymphocytes # 1.2 K/mm3 (0.7-4.5); Lymphocytes % 17.8 % (10-50); Mean Corpuscular HGB Conc 32.6 g/dL (31.8-35.4); Mean Corpuscular Hemoglobin 31.8 pg (27.0-31.2); Mean Corpuscular Volume 97.7 fl (80-94); Mean Platelet Volume 8.5 fl (7.4-10.4); Monocytes # 0.4 K/mm3 (0.1-1.0); Monocytes % 6.2 % (1.7-9.3); Platelet Count 194 K/mm3 (142-424); Red Blood Count 4.39 M/mm3 (4.60-6.20); Red Cell Distribution Width 14.6 % (11.5-17.5); White Blood Count 6.7 K/mm3 (4.8-10.8)
[2023-02-14 13:09] LABS: Alanine Aminotransferase 16 U/L (12-78); Albumin Level 4.9 g/dl (3.5-5.0); Albumin/Globulin Ratio 1.8 (1.1-1.8); Alkaline Phosphatase 86 U/L (38-126); Aspartate Amino Transferase 22 U/L (17-59); Bilirubin,Total 0.5 mg/dl (0.2-1.3); Blood Urea Nitrogen 28 mg/dl (9-20); Calcium 9.5 mg/dl (8.4-10.2); Carbon Dioxide 27 mmol/L (22.0-30.0); Chloride 103 mmol/L (98-107); Chol/HDL Ratio 3.5 (1-3.5); Cholesterol 124 mg/dl (140-200); Estimated Glomerular Filt Rate 43 ml/min (>60); GFR (African American) 53 ML/MIN (>60); Globulin 2.8 g/dL (1.3-3.2); Glucose 111 mg/dl (74-100); HDL Cholesterol 35 mg/dl (40-60); Sodium 140 mmol/L (136-145); Total Protein,Serum 7.7 g/dl (6.3-8.2); Triglycerides 134 mg/dl (30-150); VLDL Cholesterol 27 mg/dL (0-40)
[2023-02-14 13:21] LABS: Direct LDL Cholesterol 51.22 mg/dL (100-129)
[2023-02-14 14:27] LABS: Benzodiazepines Screen,Urine Negative ng/ml (<200)
[2023-02-14 14:28] LABS: Amphetamine/Metha Screen,Urine Negative ng/ml (<1000)
[2023-02-14 14:29] LABS: Barbiturates Screen,Urine Negative ng/ml (<200); Cannabinoid Screen,Urine Negative ng/ml (<50)
[2023-02-14 14:30] LABS: Cocaine Screen,Urine Negative ng/ml (<300); Methadone Screen,Urine Negative ng/ml (<300)
[2023-02-14 14:31] LABS: Opiate Screen,Urine Negative ng/ml (<300)
[2023-02-14 14:32] LABS: Phencyclidine Screen,Urine Negative ng/ml (<25)
[2023-02-14 15:47] LABS: Hemoglobin A1C 5.5 % (4.0-6.0)
[2023-02-21 00:07] LABS: Free Testosterone (Direct) 4.7 pg/mL (6.6-18.1); Testosterone, Total, LC/MS 396.7 ng/dL (264.0-916.0)
== END ==
PROVIDERS: PCP Emergency Medicine; Visit Provider Emergency Medicine
DX: E78.5 Hyperlipidemia, unspecified (principal); R73.03 Prediabetes; I45.2 Bifascicular block; E66.9 Obesity, unspecified; Z00.00 Encounter for general adult medical examination without abnormal findings; Z79.899 Other long term (current) drug therapy; Z68.32 Body mass index [BMI] 32.0-32.9, adult
CPT/HCPCS: 80053; 80061; 80305; 83036; 84436; 84443; 85025

== ENCOUNTER → 2023-03-08 08:07 | Outpatient (CLI) | payer MEDICARE, SELFPAY ==
--- NOTE | 2023-03-08 08:10 | CA_ITS ---
FINAL REPORT CLINICAL HISTORY: HTN,CKD,SMOKER,HLD COMPARISON: None FINDINGS: Aorta velocity: 109.2 cm/sec Right kidney: 198 cm. Renal cysts identified in the right kidney, measuring 1.8 cm and 1.9 cm in diameter. Right intrarenal RI: 0.73 Right renal artery velocity: 158 cm/sec. Right RAR (Renal artery-Aortic Ratio): 1.5 Left Kidney: 12.4 cm. Large renal cyst left upper pole measuring 10.5 x 10.1 cm in size. Left intrarenal RI: 0.79 Left renal artery velocity: 202 cm/sec. Left RAR (Renal Artery-Aortic Ratio): 1.8 IMPRESSION: No evidence of significant renal artery stenosis on the right. Less than 60% stenosis on the left. CT angiogram or postcontrast MR angiogram would be more sensitive for evaluation of possible renal artery stenosis. Reviewed, Interpreted and Dictated by Rayray Martínez MD Transcribed by Yoselin Toribio Authenticated and [facility]
--- NOTE | 2023-03-08 08:40 | US_ITS ---
FINAL REPORT CLINICAL HISTORY: Hypertension COMPARISON: None FINDINGS: RENAL ULTRASOUND Ultrasound images of the kidneys were obtained. Limited images of the liver parenchyma demonstrates normal echogenicity. The right kidney measures 9.3 cm in length. The left kidney measures 11.6 cm in length. There are bilateral renal cysts measuring up to 9.8 cm on the left. There is no evidence of hydronephrosis. IMPRESSION: Bilateral renal cysts. Reviewed, Interpreted and Dictated by Rayray Martínez MD Transcribed by Cami Abdalla Authenticated and [facility]
== END ==
LOC: RT 08:07
PROVIDERS: PCP Emergency Medicine; Visit Provider Internal Medicine
DX: I10 Essential (primary) hypertension (principal)
CPT/HCPCS: 76770; 93976

== ENCOUNTER → 2023-05-10 16:55 | Outpatient (CLI) | payer MEDICARE, SELFPAY ==
[2023-05-10 18:05] LABS: Phencyclidine Screen,Urine Negative ng/ml (<25)
[2023-05-10 18:06] LABS: Methadone Screen,Urine Negative ng/ml (<300); Opiate Screen,Urine Positive ng/ml (<300)
[2023-05-10 19:38] LABS: Amphetamine/Metha Screen,Urine Negative ng/ml (<1000); Cannabinoid Screen,Urine Positive ng/ml (<50)
[2023-05-10 19:39] LABS: Barbiturates Screen,Urine Negative ng/ml (<200)
[2023-05-10 19:40] LABS: Benzodiazepines Screen,Urine Positive ng/ml (<200); Cocaine Screen,Urine Negative ng/ml (<300)
== END ==
PROVIDERS: PCP Emergency Medicine; Visit Provider Emergency Medicine
DX: Z79.899 Other long term (current) drug therapy (principal)
CPT/HCPCS: 80305

== ENCOUNTER → 2023-07-06 23:19 | Outpatient (CLI) | payer MEDICARE, SELFPAY ==
[2023-07-06 18:47] LABS: Basophils % 0.5 % (0.1-2.0); Eosinophils # 0.1 K/mm3 (0.0-0.4); Hematocrit 42.3 % (42.0-52.0); Hemoglobin 14.4 g/dL (14.1-18.0); Lymphocytes # 1.1 K/mm3 (0.7-4.5); Lymphocytes % 17.5 % (10-50); Mean Corpuscular Hemoglobin 34.4 pg (27.0-31.2); Mean Corpuscular Volume 101.1 fl (80-94); Mean Platelet Volume 10.2 fl (7.4-10.4); Monocytes # 0.4 K/mm3 (0.1-1.0); Monocytes % 5.7 % (1.7-9.3); Neutrophils # 4.7 K/mm3 (1.8-7.8); Neutrophils % 75.4 % (37.0-80.0); Platelet Count 158 K/mm3 (142-424); Red Blood Count 4.19 M/mm3 (4.60-6.20); Red Cell Distribution Width 13.4 % (11.5-17.5); White Blood Count 6.2 K/mm3 (4.8-10.8)
[2023-07-06 19:10] LABS: Chloride 104 mmol/L (98-107); Potassium 4.2 mmoL/L (3.5-5.1); Sodium 142 mmol/L (136-145)
[2023-07-06 19:13] LABS: Alanine Aminotransferase 20 U/L (12-78); Albumin Level 5.2 g/dl (3.5-5.0); Albumin/Globulin Ratio 1.8 (1.1-1.8); Alkaline Phosphatase 88 U/L (38-126); Anion Gap 18.2 mEq/L (5-15); Aspartate Amino Transferase 27 U/L (17-59); Bilirubin,Total 0.6 mg/dl (0.2-1.3); Blood Urea Nitrogen 30 mg/dl (9-20); Carbon Dioxide 24 mmol/L (22.0-30.0); Estimated Glomerular Filt Rate 38 ml/min (>60); GFR (African American) 46 ML/MIN (>60); Globulin 2.9 g/dL (1.3-3.2); Total Protein,Serum 8.1 g/dl (6.3-8.2)
[2023-07-06 19:14] LABS: Calcium 9.5 mg/dl (8.4-10.2); Glucose 95 mg/dl (74-100)
[2023-07-06 19:44] LABS: Thyroid Stimulating Hormone 2.24 uIU/mL (0.465-4.68)
[2023-07-06 20:49] LABS: Prostate Specific Ag Screen 4.6 ng/ml (0.0-4.0)
[2023-07-06 21:09] LABS: Vitamin B12 391 pg/mL (239-931)
[2023-07-06 21:17] LABS: Amphetamine/Metha Screen,Urine Negative ng/ml (<1000)
[2023-07-06 21:19] LABS: Barbiturates Screen,Urine Negative ng/ml (<200); Cannabinoid Screen,Urine Positive ng/ml (<50)
[2023-07-06 21:20] LABS: Benzodiazepines Screen,Urine Negative ng/ml (<200)
[2023-07-06 21:22] LABS: Cocaine Screen,Urine Negative ng/ml (<300); Methadone Screen,Urine Negative ng/ml (<300)
[2023-07-06 21:23] LABS: Opiate Screen,Urine Negative ng/ml (<300)
[2023-07-06 21:24] LABS: Phencyclidine Screen,Urine Negative ng/ml (<25)
[2023-07-06 21:45] LABS: Microalbumin/Creatinine Ratio 11.2
[2023-07-06 21:47] LABS: Creatinine,Urine Random 101 mg/dL (Not Estab.)
== END ==
LOC: LAB.DROPOF 23:20
PROVIDERS: PCP Internal Medicine; Visit Provider Internal Medicine
DX: Z79.899 Other long term (current) drug therapy (principal); E78.5 Hyperlipidemia, unspecified; N18.32 Chronic kidney disease, stage 3b; Z12.5 Encounter for screening for malignant neoplasm of prostate
CPT/HCPCS: 80053; 80307; 82043; 82570; 82607; 84443; 85025; G0103

== ENCOUNTER 2023-07-12 13:08 | Day surgery (SDC) | payer MEDICARE, SELFPAY ==
[2023-07-12] VITALS (31 sets, daily range): BP systolic 57–116; BP diastolic 23–80; PULSE 62–100; RESP 12–22; TEMP 32.6–37.1; O2SAT 55–100; BMI 31.1; BMI 35.9; BMI 31.5
--- NOTE | 2023-07-12 13:10 | PC.NURSE ---
on arrival with EMS pt appears to be pale, cool and lethargic with large amounts of blood under him. Dr. Baumann immediately notified and came to pt bedside.
--- NOTE | 2023-07-12 13:12 | PC.NURSE ---
Dr. Baumann spoke with pt who is alert and oriented at this time. pt reported he wanted to remain a full code and gave verbal consent to emergent blood. This nurse and LCraycraft at bedside for conversation at this time
--- NOTE | 2023-07-12 13:15 | CT_ITS ---
FINAL REPORT TECHNIQUE: Pre-and postcontrast images of the abdomen and pelvis were performed by computed tomography. Extensive 3-D reconstruction images were performed. A CTA was performed. This study was performed with techniques to keep radiation doses as low as reasonably achievable (ALARA). Individualized dose reduction techniques using automated exposure control or adjustment of mA and/or kV according to the patient's size were employed. CLINICAL HISTORY: UGI and LGI bleed, hypotension COMPARISON: CT abdomen and pelvis dated 12/28/2021 FINDINGS: ABDOMEN AND PELVIS: There are mild chronic changes in the lung bases. There is mild fatty infiltration of the liver. The stomach is distended and filled with fluid. There is high density involving the anterior gastric wall seen best in images #17 through 22 of series 5, with layering and dilution in the stomach that may represent a gastric GI bleed. Precontrast images demonstrate no evidence of nephrolithiasis. No adrenal masses are identified. The spleen and pancreas are unremarkable. There is streak artifact secondary to a side plate and screws in the posterior acetabulum on the right side. No focal pelvic mass or free fluid is identified. There are multiple bilateral renal cysts, the largest in the anterior aspect of the left kidney measuring 10.7 x 7.7 cm in size. A Perry catheter is present in a poorly distended bladder. CTA: The abdominal aorta is proper caliber. The SMA, celiac axis, and RASHEED are patent. There is no significant stenosis or calcification. There are dense calcifications at the origins of the renal arteries. There is approximately 50% stenosis of the proximal right renal artery. The common iliac and external iliac vessels are normal in appearance. The internal iliac arteries are patent bilaterally. IMPRESSION: The stomach is distended with fluid, and there is high density in the anterior gastric wall seen on images #17 through 22 of series 5, with layering and dilution in the stomach of this high density material that may represent a gastric GI bleed. Dense calcifications at the origins of the renal arteries bilaterally, with approximately 50% stenosis of the proximal right renal artery. Multiple bilateral renal cysts, the largest on the left side measuring 10.7 cm in greatest diameter. Reviewed, Interpreted and Dictated by Rayray Martínez MD Transcribed by Yoselin Toribio Authenticated and [facility]
--- NOTE | 2023-07-12 13:20 | ED_ITS ---
Discharge Plan Disposition Chief Complaint: GI Bleed Clinical Impressions Clinical Impression: Acute upper gastrointestinal bleeding, Hemorrhagic shock Discharge ED Provider: Bear Baumann General Adult HPI General Chief complaint: GI Bleed Stated complaint: GI bleed Time Seen by Provider: 07/12/23 13:10 History of Present Illness HPI narrative: Patient is a 68-year-old male who is altered encephalopathic secondary to being hypotensive presents today with GI bleed. Patient from chart review has a history of head and neck cancer patient states that he is in remission. Woke up this morning had some abdominal discomfort yesterday vomiting large amounts of bright red blood also had black stools. EMS was called patient was hypotensive arrival to blood pressure in 70s had very large amount but the patient is sitting in a pool of blood and has coming out from above as well as further history is unable to be obtained. On chart review it does state that he has a history of gastric ulcer from CT and EGD denies any history of cirrhosis and I cannot find any evidence of that as well. Related Data Home Medications Medication Instructions Recorded Confirmed aspirin 81 mg tablet,delayed 81 mg PO DAILY 08/25/22 07/06/23 release (Adult Aspirin Regimen) melatonin 3 mg capsule 3 mg PO HS PRN 08/25/22 07/06/23 Previous Rx's Medication Instructions Recorded finasteride 5 mg tablet (Proscar) 5 mg PO DAILY #30 tabs 06/28/22 atorvastatin 40 mg tablet 40 mg PO HS #90 tabs 10/21/22 blood pressure monitor (Blood #1 ea 12/22/22 Pressure Kit) pantoprazole 40 mg tablet,delayed See Rx Instructions .Route 12/22/22 release .COMPLEX #60 tabs amlodipine 5 mg tablet 5 mg PO DAILY #90 tabs 01/06/23 bisoprolol fumarate 5 mg tablet 5 mg PO DAILY #90 tabs 02/07/23 valsartan 320 1 tab PO DAILY #90 tabs 02/07/23 mg-hydrochlorothiazide 25 mg tablet ondansetron HCl 4 mg tablet See Rx Instructions .Route 02/28/23 .COMPLEX #30 tabs promethazine-DM 6.25 mg-15 mg/5 mL 5 ml PO Q4-6H PRN cough #473 mL 05/10/23 oral syrup sildenafil (pulm.hypertension) 20 20 mg PO Q12H #60 tabs 05/12/23 mg tablet levothyroxine 125 mcg tablet See Rx Instructions .Route 05/25/23 .COMPLEX #90 tabs tizanidine 4 mg tablet See Rx Instructions .Route 05/25/23 .COMPLEX #30 tabs promethazine 25 mg tablet 25 mg PO Q6H PRN nausea and 06/16/23 vomiting #30 tabs clonazepam 0.5 mg tablet 0.25 mg PO TID 30 days #45 tabs 07/08/23 duloxetine 30 mg capsule,delayed 30 mg PO DAILY 30 days #30 caps 07/08/23 release gabapentin 600 mg tablet 600 mg PO TID #90 tabs 07/08/23 oxycodone-acetaminophen 7.5 mg-325 1 tab PO Q6H PRN pain #120 tabs 07/08/23 mg tablet (Percocet) Allergies Allergy/AdvReac Type Severity Reaction Status Date / Time Penicillins [PENICILLINS] Allergy Intermediate Rash/hives Verified 07/06/23 11:07 [facility] Disclaimer: The information contained in this section may have been updated after the patient was seen, as this information can be updated by other users. Medical History (Updated 07/12/23 @ 13:31 by Bear Baumann MD) Acute right flank pain Allergic rhinitis Allergies Arthritis Bakers cyst CKD (chronic kidney disease) stage 3, GFR 30-59 ml/min Diverticulitis Drug overdose Dyspnea on exertion Encounter for screening for malignant neoplasm of lung in current smoker with 30 pack year history or greater Fracture of toe History of 2019 novel coronavirus disease (COVID-19) History of colon polyps History of COVID-19 History of gastroesophageal reflux (GERD) Hyperlipidemia Hypertension Hypothyroid Mediastinal lymphadenopathy Overactive bladder Pneumonia 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 Sexual dysfunction Smoking greater than 30 pack years Squamous cell carcinoma Surgical History H/O colonoscopy History of esophagogastroduodenoscopy (EGD) History of total knee arthroplasty S/P skin cancer resection Family History Mother Breast cancer Father Lung cancer Family history of hypertension Grandfather Colon cancer Family history of hypertension Social History Smoking Status: Current every day smoker tobacco type: cigarettes packs per day: 1 years smoked: 1 second hand exposure: Yes alcohol intake: never substance use type: marijuana current occupational status: disabled Travel in the last 8 weeks: None household members: significant other housing: house current occupational exposures/hazards: No caffeine: Yes ROS Obtained: Yes All systems reviewed & no additional complaints except as documented Physical Exam General General appearance: alert and other (Very ill-appearing on General appearance patient has blood at the external aspect of his mouth and he is lying in a large pool of bright red blood around his rectum and obvious melena coming from his rectum as well) Respiratory Respiratory exam: Present normal lung sounds bilaterally Cardiovascular Cardiovascular exam: Present other (Cool extremities poor peripheral perfusion) Abdominal Exam Abdominal exam: Present tenderness (Diffusely tender abdomen) Neurological Exam Neurological exam: Present alert (GCS of 14 confused otherwise nonfocal) Medical Decision Making Willard Inquiry Pt receiving controlled substance: No Vital Signs: 07/12/23 13:08 07/12/23 13:49 Temperature 90.9 F L 90.6 F L Temperature Source Rectal Core Pulse Rate [Left Radial] 100 H Pulse Rate [Radial] 79 Respiratory Rate 18 20 Blood Pressure [Right Arm] 77/44 L 77/37 L Blood Pressure Mean [Right Arm] 55 50 Blood Pressure Source [Right Arm] Automatic Cuff Automatic Cuff Blood Pressure Position [Right Arm] Supine Supine 02 Sat by Pulse Oximetry 92 L 93 L Oxygen Delivery Method Room Air Room Air Lab Data Lab results reviewed: Yes I reviewed the patient's lab results. Lab Results 07/12/23 13:15: WBC 8.1, RBC 2.60 L, Hgb 8.8 L, Hct 26.5 L, MCV 101.7 H, MCH 33.8 H, MCHC 33.2, RDW 13.2, Plt Count 154, MPV 10.8 H, Neut % (Auto) 84.6 H, Lymph % (Auto) 11.7, [place] % (Auto) 2.2, Eos % (Auto) 1.1, Baso % (Auto) 0.4, Neut # (Auto) 6.9, Lymph # (Auto) 0.9, [place] # (Auto) 0.2, Eos # (Auto) 0.1, Baso # (Auto) 0.0, PT 10.4, INR 0.96, APTT 25.3, Sodium 135 L, Potassium 4.1, Chloride 100, Carbon Dioxide 19 L, Anion Gap 20.1 H, BUN 67 H, Creatinine 5.80 H , Estimated Creat Clear 20, Estimated GFR 10 L*, Est GFR ( Amer) 12 L*, Glucose 207 H, Calcium 7.4 L, Total Bilirubin 0.4, AST 28, ALT 16, Alkaline Phosphatase 65, Troponin I 0.02, Total Protein 5.6 L D, Albumin 3.5, Globulin 2.1, Albumin/Globulin Ratio 1.7, Blood Type O Positive, Antibody Screen Negative, Crossmatch (AHG) See Detail 07/12/23 13:15 07/12/23 13:15 Orders (Tests/Meds): ED MEDICATIONS Generic Name Dose Route Start Last Admin Trade Name Freq PRN Reason Stop Dose Admin Sodium Chloride 250 mls @ 25 mls/hr 07/12/23 14:00 Sod Chlor 0.9% 250ml Bag IV 07/13/23 13:59 .Q10H AMY Discontinued Medications Generic Name Dose Route Start Last Admin Trade Name Freq PRN Reason Stop Dose Admin Lactated Ringer's 1,000 mls @ 999 mls/hr 07/12/23 13:15 Lactated Ringer's 1000 Ml Bag IV 07/12/23 14:15 .Q1H1M AMY Iopamidol 100 ml 07/12/23 13:49 07/12/23 13:50 Iopamidol-370 (76%);100ml Bottle IV 07/12/23 13:50 100 ml ONCE ONE Administration Sodium Chloride 50 ml 07/12/23 13:49 07/12/23 13:50 0.9 % Sodium Chloride 50 Ml Vial IV 07/12/23 13:50 50 ml ONCE ONE Administration Sodium Chloride 10 ml 07/12/23 13:49 07/12/23 13:50 Sodium Chloride 0.9% 10ml Syr (Rad Only) IV 07/12/23 13:50 10 ml ONCE ONE Administration ORDERS Category Date Time Status Blood transfusion [Red Blood Cells] Stat BBK 07/12/23 13:15 Results Type and Screen Stat BBK 07/12/23 13:[address] angio abdomen pelvis Stat Cat Scan 07/12/23 13:15 Taken CBC w/Auto Diff [Complete Blood Count Auto Diff] Stat Lab 07/12/23 13:15 Completed CMP [Comprehensive Metabolic Panel] Stat Lab 07/12/23 13:15 Completed Lactic Acid Stat Lab 07/12/23 13:16 Ordered PT/PTT Stat Lab 07/12/23 13:15 Completed Trop I [Troponin I] Stat Lab 07/12/23 13:15 Completed Troponin I Q3H Lab 07/12/23 16:30 Ordered Troponin I Q3H Lab 07/12/23 19:30 Ordered Medical Decision Narrative: Seen and evaluated by me he appears to be exsanguinating for an upper GI bleed very hypotensive in shock we will go ahead and initiate 2 units of PRBCs temp to resuscitate the patient. Evidence of cirrhosis from historical standpoint. Will also give a PPI in the ED. Patient is awake answer my questions appropriately at the moment have already called to see if the helicopter is flying at the moment we will call [facility] for this unstable GI bleed patient I also spoke with our general surgeon who is on-call who requested we get this patient to higher level of care there is still diagnostic uncertainty going on with this patient. Differential includes rapid upper GI bleed aorto esophageal fistula, bleeding tumors etc. I suspect most likely this is a bleeding gastric ulcer he is quite tender in his abdomen could be perforated as well. Given the fact that we will take some time for me to get this patient definitive care and transfer we will go ahead and get a CT angio abdomen pelvis. Was taken to the CT scanner prior to any further intervention prior to any labs that returned CT angio was performed to person interpreted shows active extravasation in the stomach with stomach that seems to be full blood no active extravasation elsewhere in the gastrointestinal system on my personal interpretation. This is most likely a bleeding gastric ulcer patient's platelets returned which are normal no evidence of cirrhosis from historical standpoint or sequela on physical exam this is unlikely to be variceal bleed. 2 units of PRBCs were given prior to going to the operating with Dr. Waller after Dr. Waller decided to come into the ED and take the patient to the OR. Dr. Bashir took the patient to the operating room and did not communicate further with me in terms of his downstream plans other than he would like the patient still to be transferred [facility] which I am still attempting, which he communicated through the OR team. As of 1:56 PM still not called back I also spoke with Dr. Anderson with hospital medicine to give him a heads up that the patient may need to be admitted to his service until we can get an accepting physician. Dr. Anderson is also aware. Patient was critically ill in hemorrhagic shock and was taken to the operating room for an attempt at lifesaving intervention. While patient in the operating room I continue to make phone calls and spoke with the transfer center spoke with Dr. Adonay Glez and the rest the transfer center team they do have ICU beds and stated they would be able to except this patient to an ICU bed directly from the PACU if Dr. Bashir will call them and discuss with them if the patient has survived and what he found in the operating room. I spoke with Dr. Anderson to closed-loop with him and we also will communicate this with the OR team who should be able to call and close the loop with this transfer if the patient survives. Critical Care Critical Care Time Critical Care Time: Yes Attestation: On 07/12/23, the high probability of a clinically significant, sudden or life threatening deterioration of the following system(s) required my full and direct attention, intervention and personal management. The time I documented below is in addition to time spent performing reported procedures but includes the following listed in this critical care notation. Total Time Total Critical Care Time: 65
--- NOTE | 2023-07-12 13:24 | PC.NURSE ---
Dr. Baumann speaking with Dr. Waller. Dr. Waller preferred pt be transferred
[2023-07-12 13:26] LABS: Basophils % 0.4 % (0.1-2.0); Eosinophils # 0.1 K/mm3 (0.0-0.4); Eosinophils % 1.1 % (0.1-12.0); Hematocrit 26.5 % (42.0-52.0); Hemoglobin 8.8 g/dL (14.1-18.0); Lymphocytes # 0.9 K/mm3 (0.7-4.5); Lymphocytes % 11.7 % (10-50); Mean Corpuscular HGB Conc 33.2 g/dL (31.8-35.4); Mean Corpuscular Hemoglobin 33.8 pg (27.0-31.2); Mean Corpuscular Volume 101.7 fl (80-94); Mean Platelet Volume 10.8 fl (7.4-10.4); Monocytes # 0.2 K/mm3 (0.1-1.0); Monocytes % 2.2 % (1.7-9.3); Neutrophils # 6.9 K/mm3 (1.8-7.8); Neutrophils % 84.6 % (37.0-80.0); Platelet Count 154 K/mm3 (142-424); Red Cell Distribution Width 13.2 % (11.5-17.5); White Blood Count 8.1 K/mm3 (4.8-10.8)
--- NOTE | 2023-07-12 13:27 | PC.NURSE ---
[facility] checking flight status
--- NOTE | 2023-07-12 13:30 | PC.NURSE ---
lab at bedside with emergent blood at this time. verified between Satish and Cindy.
--- NOTE | 2023-07-12 13:32 | PC.NURSE ---
Dr. Waller at BS for pt eval
--- NOTE | 2023-07-12 13:32 | PC.NURSE ---
[employer] declined flight
[2023-07-12 13:35] LABS: Chloride 100 mmol/L (98-107)
[2023-07-12 13:36] LABS: Potassium 4.1 mmoL/L (3.5-5.1); Sodium 135 mmol/L (136-145)
--- NOTE | 2023-07-12 13:37 | PC.NURSE ---
[employer] declined also
[2023-07-12 13:38] LABS: Alanine Aminotransferase 16 U/L (12-78); Alkaline Phosphatase 65 U/L (38-126); Aspartate Amino Transferase 28 U/L (17-59); Bilirubin,Total 0.4 mg/dl (0.2-1.3); Blood Urea Nitrogen 67 mg/dl (9-20); Creatinine Clearance Estimated 20 mL/min (50-200); Estimated Glomerular Filt Rate 10 ml/min (>60); GFR (African American) 12 ML/MIN (>60)
[2023-07-12 13:39] LABS: Albumin Level 3.5 g/dl (3.5-5.0); Albumin/Globulin Ratio 1.7 (1.1-1.8); Anion Gap 20.1 mEq/L (5-15); Calcium 7.4 mg/dl (8.4-10.2); Carbon Dioxide 19 mmol/L (22.0-30.0); Globulin 2.1 g/dL (1.3-3.2); Glucose 207 mg/dl (74-100); Total Protein,Serum 5.6 g/dl (6.3-8.2)
[2023-07-12 13:41] LABS: Activated Partial Thrombo Time 25.3 seconds (22.8-30.6); INR 0.96 (0.9-1.1); Prothrombin Time 10.4 seconds (10.1-12.5)
[2023-07-12] MEDS: SODIUM CHLORIDE 0.9% 10ML SYR (RAD ONLY) 10 ML IV (13:50)
[2023-07-12] MEDS: IOPAMIDOL-370 (76%);100ML BOTTLE 100 ML IV (13:50)
[2023-07-12] MEDS: 0.9 % SODIUM CHLORIDE 50 ML VIAL IV (13:50)
[2023-07-12 13:51] LABS: Troponin I 0.02 ng/ml (0.00-0.034)
--- NOTE | 2023-07-12 13:59 | SUR.OPER ---
1351- pt into the OR at this time. Emergent blood started in the ER, continuing at this time. Vitals being monitored and recorded per anesthesia at this time.
--- NOTE | 2023-07-12 14:00 | PC.NURSE ---
Patient to surgery. Family notified.
--- NOTE | 2023-07-12 14:28 | PC.NURSE ---
Dr Baumann speaking with [facility]
--- NOTE | 2023-07-12 14:30 | PC.NURSE ---
Dr. Baumann stated that the patient will be accepted to [facility] but not as a ER to ER transfer and that they require the surgeon to call and speak with the providers and then they will accept him from PACU. MALISSA Huang called surgery staff and informed them of this.
--- NOTE | 2023-07-12 14:45 | SUR.OPER ---
1412- Emergent blood received from lab. *NURSE NOTE FOR EMERGENT BLOOD* units [id number] and [id number] Blood start vitals 1415-130/71, heart rate 77, 98.6 is the temp, 100% vent, 14rr 1420 5 min-90/52, with heart rate of 65, 98.7 is the temp, 100% vent, 12rr 1425 10min-116/72, 71 heart rate, 98.7 is the temp, 100% vent, 12rr end vitals 1430- 118/76, 84 is the heart rate, 98.7 is the temp, 100% vent, 12rr 1 hour post vitals at 1530-
--- NOTE | 2023-07-12 15:31 | SUR.OPER ---
1530- 1 hour post emergent blood tranfusion vitals on units [id number] and [id number] 96/66 63hr 100 o2 intubated and ventilation controlled by salome caruso 98.7 temp RR-13
[2023-07-12] MEDS: ERTAPENEM SODIUM 1 GM VIAL (15:32)
--- NOTE | 2023-07-12 15:47 | P.CONS_ITS ---
History of Present Illness *Admission Date: 07/12/23 *Reason for visit:: Gastrointestinal hemorrhage *History of present illness: This is a 68-year-old gentleman who presented with massive gastrointestinal hemorrhage (hematemesis/melena/bright red blood per rectum). Please see emergency department evaluation for detail. He has a known history of peptic ulcer disease. Transfer to higher level of care was unavoidably delayed; therefore, the patient was taken emergently to the operating room for exploration. [facility] Disclaimer: The information contained in this section may have been updated after the patient was seen, as this information can be updated by other users. Medical History (Updated 07/12/23 @ 13:31 by Bear Baumann MD) Acute right flank pain Allergic rhinitis Allergies Arthritis Bakers cyst CKD (chronic kidney disease) stage 3, GFR 30-59 ml/min Diverticulitis Drug overdose Dyspnea on exertion Encounter for screening for malignant neoplasm of lung in current smoker with 30 pack year history or greater Fracture of toe History of 2019 novel coronavirus disease (COVID-19) History of colon polyps History of COVID-19 History of gastroesophageal reflux (GERD) Hyperlipidemia Hypertension Hypothyroid Mediastinal lymphadenopathy Overactive bladder Pneumonia [id number] syndrome manifesting as chronic dyspnea Sexual dysfunction Smoking greater than 30 pack years Squamous cell carcinoma Surgical History H/O colonoscopy History of esophagogastroduodenoscopy (EGD) History of total knee arthroplasty S/P skin cancer resection Family History Mother Breast cancer Father Lung cancer Family history of hypertension Grandfather Colon cancer Family history of hypertension Social History Smoking Status: Current every day smoker tobacco type: cigarettes packs per day: 1 years smoked: 1 second hand exposure: Yes alcohol intake: never substance use type: marijuana current occupational status: disabled Travel in the last 8 weeks: None household members: significant other housing: house current occupational exposures/hazards: No caffeine: Yes Meds Home Medications and Allergies Home Medications Medication Instructions Recorded Confirmed Type finasteride 5 mg tablet (Proscar) 5 mg PO DAILY #30 tabs 06/28/22 07/06/23 Rx aspirin 81 mg tablet,delayed 81 mg PO DAILY 08/25/22 07/06/23 History release (Adult Aspirin Regimen) melatonin 3 mg capsule 3 mg PO HS PRN 08/25/22 07/06/23 History atorvastatin 40 mg tablet 40 mg PO HS #90 tabs 10/21/22 07/06/23 Rx blood pressure monitor (Blood #1 ea 12/22/22 07/06/23 Rx Pressure Kit) pantoprazole 40 mg tablet,delayed See Rx Instructions .Route 12/22/22 07/06/23 Rx release .COMPLEX #60 tabs amlodipine 5 mg tablet 5 mg PO DAILY #90 tabs 01/06/23 07/06/23 Rx bisoprolol fumarate 5 mg tablet 5 mg PO DAILY #90 tabs 02/07/23 07/06/23 Rx valsartan 320 1 tab PO DAILY #90 tabs 02/07/23 07/06/23 Rx mg-hydrochlorothiazide 25 mg tablet ondansetron HCl 4 mg tablet See Rx Instructions .Route 02/28/23 07/06/23 Rx .COMPLEX #30 tabs promethazine-DM 6.25 mg-15 mg/5 mL 5 ml PO Q4-6H PRN cough #473 mL 05/10/23 07/06/23 Rx oral syrup sildenafil (pulm.hypertension) 20 20 mg PO Q12H #60 tabs 05/12/23 07/06/23 Rx mg tablet levothyroxine 125 mcg tablet See Rx Instructions .Route 05/25/23 07/06/23 Rx .COMPLEX #90 tabs tizanidine 4 mg tablet See Rx Instructions .Route 05/25/23 07/06/23 Rx .COMPLEX #30 tabs promethazine 25 mg tablet 25 mg PO Q6H PRN nausea and 06/16/23 07/06/23 Rx vomiting #30 tabs clonazepam 0.5 mg tablet 0.25 mg PO TID 30 days #45 tabs 07/08/23 07/08/23 Rx duloxetine 30 mg capsule,delayed 30 mg PO DAILY 30 days #30 caps 07/08/23 07/08/23 Rx release gabapentin 600 mg tablet 600 mg PO TID #90 tabs 07/08/23 07/08/23 Rx oxycodone-acetaminophen 7.5 mg-325 1 tab PO Q6H PRN pain #120 tabs 07/08/23 07/08/23 Rx mg tablet (Percocet) New Prescriptions to Start Prescriptions: Allergies Allergy/AdvReac Type Severity Reaction Status Date / Time Penicillins [PENICILLINS] Allergy Intermediate Rash/hives Verified 07/06/23 11:07 Exam (Inpt) Vital signs and Labs for Last 24 Hours: Temp Pulse Resp BP Pulse Ox O2 Del Method O2 Flow Rate 98.8 F 63 12 95/50 L 100 Non-Rebreather 12 07/12/23 15:35 07/12/23 15:35 07/12/23 15:35 07/12/23 15:35 07/12/23 15:35 07/12/23 14:00 07/12/23 14:00 Laboratory Results - last 24 hr 07/12/23 13:15: WBC 8.1, RBC 2.60 L, Hgb 8.8 L, Hct 26.5 L, MCV 101.7 H, MCH 33.8 H, MCHC 33.2, RDW 13.2, Plt Count 154, MPV 10.8 H, Neut % (Auto) 84.6 H, Lymph % (Auto) 11.7, [place] % (Auto) 2.2, Eos % (Auto) 1.1, Baso % (Auto) 0.4, Neut # (Auto) 6.9, Lymph # (Auto) 0.9, [place] # (Auto) 0.2, Eos # (Auto) 0.1, Baso # (Auto) 0.0, PT 10.4, INR 0.96, APTT 25.3, Sodium 135 L, Potassium 4.1, Chloride 100, Carbon Dioxide 19 L, Anion Gap 20.1 H, BUN 67 H, Creatinine 5.80 H , Estimated Creat Clear 20, Estimated GFR 10 L*, Est GFR ( Amer) 12 L*, Glucose 207 H, Calcium 7.4 L, Total Bilirubin 0.4, AST 28, ALT 16, Alkaline Phosphatase 65, Troponin I 0.02, Total Protein 5.6 L D, Albumin 3.5, Globulin 2.1, Albumin/Globulin Ratio 1.7, Blood Type O Positive, Antibody Screen Negative, Crossmatch (AHG) See Detail I & O for Labs for Last 24 Hours: Intake & Output 12/24/23 07/11/23 07/12/23 07/13/23 11:59 11:59 11:59 11:59 Intake Total 250 / 250 Balance 250 / 250 Weight 220 lb Constitutional: moderate distress Respiratory: Absent respiratory distress Cardiac: Absent Tachycardia Results Labs 07/12/23 13:15 07/12/23 13:15 Labs: Laboratory Results - last 24 hr 07/12/23 13:15: WBC 8.1, RBC 2.60 L, Hgb 8.8 L, Hct 26.5 L, MCV 101.7 H, MCH 33.8 H, MCHC 33.2, RDW 13.2, Plt Count 154, MPV 10.8 H, Neut % (Auto) 84.6 H, Lymph % (Auto) 11.7, [place] % (Auto) 2.2, Eos % (Auto) 1.1, Baso % (Auto) 0.4, Neut # (Auto) 6.9, Lymph # (Auto) 0.9, [place] # (Auto) 0.2, Eos # (Auto) 0.1, Baso # (Auto) 0.0, PT 10.4, INR 0.96, APTT 25.3, Sodium 135 L, Potassium 4.1, Chloride 100, Carbon Dioxide 19 L, Anion Gap 20.1 H, BUN 67 H, Creatinine 5.80 H , Estimated Creat Clear 20, Estimated GFR 10 L*, Est GFR ( Amer) 12 L*, Glucose 207 H, Calcium 7.4 L, Total Bilirubin 0.4, AST 28, ALT 16, Alkaline Phosphatase 65, Troponin I 0.02, Total Protein 5.6 L D, Albumin 3.5, Globulin 2.1, Albumin/Globulin Ratio 1.7, Blood Type O Positive, Antibody Screen Negative, Crossmatch (AHG) See Detail Assessment and Plan *Assessment and plan (1) Acute upper gastrointestinal bleeding: Status: Acute Category: Medical Code(s): K92.2 - Gastrointestinal hemorrhage, unspecified (2) Hemorrhagic shock: Status: Acute Category: Medical Code(s): R57.8 - Other shock Plan Secondary to unavoidable delay of transfer to a tertiary facility the patient is being taken emergently to the operating room for exploration
--- NOTE | 2023-07-12 15:50 | P.OP_ITS ---
Date of procedure: 07/12/23 Pre-op Diagnosis:: Upper gastrointestinal hemorrhage Post-op Diagnosis:: Gastric hemorrhage Procedure performed:: Limited emergent exploratory laparotomy with control of gastric hemorrhage Surgeon:: Mal Waller MD Anesthesia: GETCristina Estimated blood loss (mL): 100 Operative findings:: Punctate active arterial bleeding in proximal gastric body (controlled with [id number]) Massive quantity of blood clot and food particles within the gastric lumen Large linear gastrotomy required for exposure Linear ulceration in proximal gastric body (controlled with [id number]) No definitive sign of additional bleeding (no obvious prepyloric/pyloric hemorrhage noted; however, pyloromyotomy not completed) Operative note:: The patient was transferred emergently to the operating suite. After intubation his abdomen was prepped and draped in a sterile fashion. An upper just left of midline laparotomy incision was made in an attempt to avoid prior incision sites. The abdomen was entered with electrocautery. A massively enlarged stomach was immediately encountered. A linear mid/distal gastrotomy was made with evacuation of contents. Massive quantity of food particles and blood clot evacuated. In order to improve exposure, the linear gastrotomy was extended cephalad. A punctate area of active arterial hemorrhage was noted along the anterior/anterio-lateral proximal gastric lumen. A ktymfz-fp-zlwnz was utilized to control this site. An additional linear ulceration with no definitive active hemorrhage was seen adjacent to bleeding site. This area was also controlled with [id number]. Although visualization was difficult, no definitive area of additional hemorrhage was noted proximally.. The pyloric and prepyloric region were then evaluated with no definitive evidence of active hemorrhage noted. A pyloromyotomy was not completed as this would have unnecessarily prolonged the intervention. Running Vicryl suture was utilized to close the gastrotomy after placement of a gastrostomy tube was confirmed. Imbrication with 3-0 Nurolon was then completed. Thorough evacuation of the upper abdomen was completed to the degree possible. Dense adhesions from prior surgery made visualization difficult but also somewhat limited the efficacy of irrigation. Fascia was closed with running #2 Novafil and skin was stapled. The patient was then transferred to recovery. Condition: critical Disposition: other (Transfer to [facility] intensive care unit pending) Specimens:: none Complications:: No immediate
--- NOTE | 2023-07-12 16:20 | EXP.ANES.CKL ---
[facility] Disclaimer: The information contained in this section may have been updated after the patient was seen, as this information can be updated by other users. Medical History (Updated 07/12/23 @ 13:31 by Bear Baumann MD) Acute right flank pain Allergic rhinitis Allergies Arthritis Bakers cyst CKD (chronic kidney disease) stage 3, GFR 30-59 ml/min Diverticulitis Drug overdose Dyspnea on exertion Encounter for screening for malignant neoplasm of lung in current smoker with 30 pack year history or greater Fracture of toe History of 2019 novel coronavirus disease (COVID-19) History of colon polyps History of COVID-19 History of gastroesophageal reflux (GERD) Hyperlipidemia Hypertension Hypothyroid Mediastinal lymphadenopathy Overactive bladder Pneumonia 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 Sexual dysfunction Smoking greater than 30 pack years Squamous cell carcinoma Surgical History H/O colonoscopy History of esophagogastroduodenoscopy (EGD) History of total knee arthroplasty S/P skin cancer resection Family History Mother Breast cancer Father Lung cancer Family history of hypertension Grandfather Colon cancer Family history of hypertension Social History Smoking Status: Current every day smoker tobacco type: cigarettes packs per day: 1 years smoked: 1 second hand exposure: Yes alcohol intake: never substance use type: marijuana current occupational status: disabled Travel in the last 8 weeks: None household members: significant other housing: house current occupational exposures/hazards: No caffeine: Yes [facility] Anesthesia Checklist Patient Identification Patient Identification: Arm Band Structural Data Admitted From: Emergency Dept Planned Operative Procedure/s: Exploratory lap due to gastric bleeding. Consent for Planned Operative Procedure(s) Verified: Yes Verified Documents: Surgical Consent NPO Status Verified Time NPO: 12:30 Additional verifications Patient : No Anesthesia Reactions: No Hx Blood Transfusions: No Blood Transfusion Reaction: No Previous Colonoscopy: No Airway Assessment Mallampati Score:: Class II TMJ Mobility Assessed: Yes Dentition: Edentulous Neurological Assessment Level of Consciousness: Lethargic Hx Seizures: No Numbness or tingling in extremities: No Anesthesia Plan Anesthesia Risk discussed: No Anesthesia Plan: Patient unable to respond/answer Anesthesia Type: General Preoperative Comments Pre-Operative Comments: Gastric bleeding.
--- NOTE | 2023-07-12 16:24 | EXP.ANES.I ---
[facility] Anesthesia Record Part I Anesthesia Record I Intake, IV Amount: 2,500 Hydration: Adequate Estimated blood loss (mL): 100 Urine output (mL): 200 Blood Products used (#): whole blood Blood Pressure: 97/79 SaO2: 92 Pulse Rate: 97 Airway Patency: Patent Respiratory Rate: 22 Temperature: 97 F Patient is:: Drowsy and Stable Stable to PACU at:: 16:00
--- NOTE | 2023-07-12 16:40 | SUR.PHASEI ---
1 hour post blood transfusion vitals- 107/67 64 heart rate 97.8 temp 100% on 20L of o2 with a non rebreather mask. 18 RR
--- NOTE | 2023-07-12 17:53 | SUR.PHASEI ---
1750- detailed report given to sterling Ratliff at [facility]. [facility] on their way to get the patient for transport. Detailed report given to laverne schaefer with [facility].
--- NOTE | 2023-07-12 19:18 | SUR.PHASEI ---
1915- [facility] at bedside to transport patient. Report and paperwork for transfer given to [facility]. Pt in stable condition upon d/c transfer. [facility].
--- NOTE | 2023-07-13 13:54 | EXP.ANES.II ---
[facility] Anesthesia Record Part II Anesthesia Record Part II Discharge Time: 19:10 Destination: Intensive Care Unit PACU nurse assessment reviewed?: Yes Patient Condition:: Good Anesthesia Complications:: None Swallowing reflex intact?: Yes Airway Patency: Patent Cyanosis?: No Blood Pressure: 115/61 SaO2: 100 Respiratory Rate: 17 Pulse Rate: 87 Temperature: 97.7 F Mental Status: Alert & Oriented Pain level:: 0 Nausea and/or vomitting:: None Intake, IV Amount: 0 Hydration: Adequate Comments:: Pt transferred from PACU to ICU
[2023-07-13 13:56] VITALS: BP 115/61; PULSE 87; RESP 17; TEMP 36.5; O2SAT 100
== END 2023-07-12 19:15 | disposition short-term general hospital (02) ==
LOC: ER 13:25 → SDC 13:57
PROVIDERS: Emergency Provider Student in an Organized Health Care Education/Training Program; Visit Provider Surgery
PROC: (CPT 49000; principal; 2023-07-12 13:40)
DX: R57.8 Other shock; K25.4 Chronic or unspecified gastric ulcer with hemorrhage
CPT/HCPCS: 43501; 43753; 74174; 80053; 84484; 85025; 85610; 85730; 86850; J0330; J1335; J2710; P9016; Q9967

== ENCOUNTER 2023-07-26 11:30 | Emergency (ER) | payer MEDICARE, SELFPAY ==
[2023-07-26] VITALS (9 sets, daily range): BP systolic 125–169; BP diastolic 39–100; PULSE 59–70; RESP 16–22; TEMP 36.6–36.7; O2SAT 92–100; BMI 31.7
--- NOTE | 2023-07-26 12:12 | PC.NURSE ---
Dr. Vick at [facility] for pt eval
--- NOTE | 2023-07-26 12:14 | CT_ITS ---
FINAL REPORT TECHNIQUE: Postcontrast axial images through the abdomen and pelvis were performed. This study was performed with techniques to keep radiation doses as low as reasonably achievable, (ALARA). Individualized dose reduction techniques using automated exposure control or adjustment of mA and/or kV according to the patient's size were employed. CLINICAL HISTORY: concern for post-op abd abscess COMPARISON: 07/12/2023 FINDINGS: Abdomen: There is a small left effusion. Bibasilar atelectasis is identified. There are several small hepatic cysts. There is a small fluid collection superior to the left hepatic lobe measuring up to 15 mm. There is mild nonspecific gallbladder wall thickening. The spleen is unremarkable. The adrenals are normal. The pancreas is unremarkable. Bilateral renal cysts are identified, largest on the left measures 10 cm. The aorta is normal in caliber. There is no adenopathy. There is a a small amount of fluid adjacent to the posterior border of the liver. There are 2 fluid collections adjacent to the spleen, medially measuring 26 mm and anteriorly measuring 53 mm, may represent loculated ascites versus early abscess which is new since prior. Postoperative changes are seen in the anterior abdominal wall. There are small areas of fluid in the left anterior abdomen wall subcutaneous tissues measuring 32 mm, favor seromas over early abscesses. Pelvis: The appendix is normal. There is sigmoid diverticulosis. Postoperative changes are seen in the right pelvis. There are small foci of fluid in the left paracolic gutter measuring 11 mm. Small umbilical hernia containing fat is identified. There is bladder wall thickening. There is no adenopathy. IMPRESSION: Small areas of fluid within the abdomen, may represent seromas versus early small abscesses. Follow up CT may be helpful. Small fluid collection in left anterior abdominal subcutaneous tissues, favor seromas over early abscesses. Reviewed, Interpreted and Dictated by Jeremie Jaramillo III, MD Transcribed by Dayanna Balderrama Authenticated and [facility]
[2023-07-26 12:22] LABS: Basophils # 0.1 K/mm3 (0-0.2); Basophils % 0.6 % (0.1-2.0); Eosinophils # 0.1 K/mm3 (0.0-0.4); Hematocrit 26.1 % (42.0-52.0); Hemoglobin 8.3 g/dL (14.1-18.0); Lymphocytes # 0.9 K/mm3 (0.7-4.5); Lymphocytes % 11.6 % (10-50); Mean Corpuscular HGB Conc 31.7 g/dL (31.8-35.4); Mean Corpuscular Hemoglobin 31.9 pg (27.0-31.2); Mean Corpuscular Volume 100.5 fl (80-94); Mean Platelet Volume 8.2 fl (7.4-10.4); Monocytes # 0.3 K/mm3 (0.1-1.0); Neutrophils # 6.2 K/mm3 (1.8-7.8); Neutrophils % 82.9 % (37.0-80.0); Platelet Count 572 K/mm3 (142-424); Red Cell Distribution Width 17.1 % (11.5-17.5); White Blood Count 7.5 K/mm3 (4.8-10.8)
[2023-07-26 12:23] LABS: Chloride 99 mmol/L (98-107); Sodium 137 mmol/L (136-145)
[2023-07-26 12:24] LABS: Potassium 4.8 mmoL/L (3.5-5.1)
[2023-07-26 12:26] LABS: Alanine Aminotransferase 66 U/L (12-78); Alkaline Phosphatase 149 U/L (38-126); Aspartate Amino Transferase 122 U/L (17-59); Bilirubin,Total 0.6 mg/dl (0.2-1.3); Blood Urea Nitrogen 17 mg/dl (9-20); Creatinine Clearance Estimated 79 mL/min (50-200); Estimated Glomerular Filt Rate 55 ml/min (>60); GFR (African American) 67 ML/MIN (>60)
[2023-07-26 12:27] LABS: Albumin Level 3.5 g/dl (3.5-5.0); Anion Gap 9.8 mEq/L (5-15); Calcium 8.7 mg/dl (8.4-10.2); Carbon Dioxide 33 mmol/L (22.0-30.0); Globulin 3.6 g/dL (1.3-3.2); Glucose 109 mg/dl (74-100); Total Protein,Serum 7.1 g/dl (6.3-8.2)
[2023-07-26 12:30] LABS: Lactic Acid 1.3 mmol/L (0.7-2.1)
[2023-07-26] MEDS: MORPHINE 4MG/ML SYRINGE 4 MG IV ×2 (12:31→16:20)
[2023-07-26] MEDS: ACETAMINOPHEN 1,000MG/100ML VIAL 1000 MG IV (12:31)
[2023-07-26] MEDS: ONDANSETRON 4MG/2ML VIAL 4 MG IV (12:31)
--- NOTE | 2023-07-26 12:37 | PC.NURSE ---
Pt gone to RAD via wheelchair
[2023-07-26 12:47] LABS: Microscopic, Urine URINE MICROSCOPIC (MICROSCOPIC)
[2023-07-26 12:49] LABS: Appearance,Urine CLEAR (Clear); Bilirubin,Urine Negative (Negative); Blood, Urine TRACE-I (Negative); Color,Urine YELLOW (Yellow); Glucose,Urine (UA) Negative (Negative); Ketones,Urine Negative (Negative); Leukocyte Esterase,Urine Negative (Negative); Nitrate,Urine Negative (Negative); Protein,Urine Negative (Negative); Specific Gravity, Urine 1.015 (1.005-1.030)
[2023-07-26] MEDS: IOPAMIDOL-370 (76%);100ML BOTTLE 75 ML IV (12:53)
[2023-07-26] MEDS: SODIUM CHLORIDE 0.9% 10ML SYR (RAD ONLY) 10 ML IV (12:53)
[2023-07-26] MEDS: VANCOMYCIN CONSULT REQUEST 1 EACH NOTAPPLIC (12:57)
--- NOTE | 2023-07-26 12:57 | PC.NURSE ---
PT returned to room from RAD
--- NOTE | 2023-07-26 12:58 | ED_ITS ---
Discharge Plan Disposition Patient Disposition: Home, Self-Care Prescriptions Prescriptions: New cefdinir 300 mg capsule 300 mg PO BID 7 Days Qty: 14 0RF metronidazole 500 mg tablet 500 mg PO BID 7 Days Qty: 14 0RF No Action finasteride [Proscar] 5 mg tablet 5 mg PO DAILY Qty: 30 1RF aspirin [Adult Aspirin Regimen] 81 mg tablet,delayed release (DR/EC) 81 mg PO DAILY melatonin 3 mg capsule 3 mg PO HS PRN (DME) blood pressure monitor [Blood Pressure Kit] Kit See Rx Instructions .Route Qty: 1 0RF Rx Instructions: As directed valsartan-hydrochlorothiazide 320-25 mg tablet 1 tab PO DAILY Qty: 90 3RF bisoprolol fumarate 5 mg tablet 5 mg PO DAILY Qty: 90 3RF clonazepam 0.5 mg tablet 0.25 mg PO TID 30 Days Qty: 45 1RF gabapentin 600 mg tablet 600 mg PO TID Qty: 90 1RF oxycodone-acetaminophen [Percocet] 7.5-325 mg tablet 1 tab PO Q6H PRN (Reason: pain) Qty: 120 0RF duloxetine 30 mg capsule,delayed release(DR/EC) 30 mg PO DAILY 30 Days Qty: 30 2RF valsartan 80 mg tablet 80 mg PO montelukast 10 mg tablet 10 mg PO DAILY amlodipine 5 mg tablet 5 mg PO DAILY Qty: 90 3RF atorvastatin 40 mg tablet 40 mg PO HS Qty: 90 2RF pantoprazole 40 mg tablet,delayed release (DR/EC) See Rx Instructions .ROUTE .COMPLEX Qty: 60 3RF Dose Instruction: TAKE ONE TABLET BY MOUTH ONCE A DAY Rx Instructions: TAKE ONE TABLET BY MOUTH ONCE A DAY ondansetron HCl 4 mg tablet See Rx Instructions .ROUTE .COMPLEX Qty: 30 0RF Dose Instruction: TAKE ONE TABLET BY MOUTH EVERY 8 HOURS NEEDED FOR NAUSEA Rx Instructions: TAKE ONE TABLET BY MOUTH EVERY 8 HOURS NEEDED FOR NAUSEA sildenafil (pulm.hypertension) 20 mg tablet 20 mg PO Q12H Qty: 60 2RF Rx Instructions: administer doses at least 4-6 hours apart levothyroxine 125 mcg tablet See Rx Instructions .ROUTE .COMPLEX Qty: 90 0RF Dose Instruction: TAKE ONE TABLET BY MOUTH ONCE A DAY Rx Instructions: TAKE ONE TABLET BY MOUTH ONCE A DAY promethazine 25 mg tablet 25 mg PO Q6H PRN (Reason: nausea and vomiting) Qty: 30 0RF tizanidine 4 mg tablet See Rx Instructions .ROUTE .COMPLEX Qty: 30 0RF Dose Instruction: TAKE ONE TABLET BY MOUTH AT BEDTIME NEEDED FOR MUSCLE SPASTICITY Rx Instructions: TAKE ONE TABLET BY MOUTH AT BEDTIME NEEDED FOR MUSCLE SPASTICITY Referrals Follow up/Referrals: Rakesh Cheng DO [Primary Care Provider] - See instructions Activity Restrictions/Add. Instructions Additional Instructions/Restrictions: Call your family doctor to establish care for this visit to the emergency department and schedule follow-up within 48 hours to ensure improvement. If you have any worsening of your condition or any other concerning signs or symptoms, return to the emergency department or your primary care doctor for further evalu ation. Clinical Impressions Clinical Impression: Postoperative abscess Instructions Patient Instructions: DI for Skin Abscess Discharge ED Provider: Jeff Vick General Adult HPI General Chief complaint: Skin/Abscess/Foreign Body Stated complaint: infected leg Time Seen by Provider: 07/26/23 12:01 Mode of Arrival: Ambulatory Source of Information: Patient Limitations: No Limitations Description of Symptoms (Recalled from ER Triage Doc. by RN): Patient sent from doctor's office for possible infection in his abdominal incision. Patient has no complaint of pain or n/v/d. History of Present Illness HPI narrative: 68-year-old male history of CKD, gastric ulcer disease status post hemorrhagic ulcer bleed and emergency ex lap in June 2023 presenting with concern for postop infection. Patient states that he had the surgery, then was flown off to [facility] and stayed in the ICU. Was discharged last Tuesday. Patient states that he has been having redness crop up since that time around the incision. Denies fevers or chills, nausea or vomiting, but has had acute pain that is throbbing and stabbing in the area. Getting worse every day. Has not noticed anything that makes it better or worse in particular. No purulent drainage from the incision. Related Data Home Medications Medication Instructions Recorded Confirmed aspirin 81 mg tablet,delayed 81 mg PO DAILY 08/25/22 07/26/23 release (Adult Aspirin Regimen) melatonin 3 mg capsule 3 mg PO HS PRN 08/25/22 07/26/23 montelukast 10 mg tablet 10 mg PO DAILY 07/26/23 07/26/23 valsartan 80 mg tablet 80 mg PO 07/26/23 07/26/23 Previous Rx's Medication Instructions Recorded finasteride 5 mg tablet (Proscar) 5 mg PO DAILY #30 tabs 06/28/22 atorvastatin 40 mg tablet 40 mg PO HS #90 tabs 10/21/22 blood pressure monitor (Blood #1 ea 12/22/22 Pressure Kit) pantoprazole 40 mg tablet,delayed See Rx Instructions .Route 12/22/22 release .COMPLEX #60 tabs amlodipine 5 mg tablet 5 mg PO DAILY #90 tabs 01/06/23 bisoprolol fumarate 5 mg tablet 5 mg PO DAILY #90 tabs 02/07/23 valsartan 320 1 tab PO DAILY #90 tabs 02/07/23 mg-hydrochlorothiazide 25 mg tablet ondansetron HCl 4 mg tablet See Rx Instructions .Route 02/28/23 .COMPLEX #30 tabs sildenafil (pulm.hypertension) 20 20 mg PO Q12H #60 tabs 05/12/23 mg tablet levothyroxine 125 mcg tablet See Rx Instructions .Route 05/25/23 .COMPLEX #90 tabs promethazine 25 mg tablet 25 mg PO Q6H PRN nausea and 06/16/23 vomiting #30 tabs clonazepam 0.5 mg tablet 0.25 mg PO TID 30 days #45 tabs 07/08/23 duloxetine 30 mg capsule,delayed 30 mg PO DAILY 30 days #30 caps 07/08/23 release gabapentin 600 mg tablet 600 mg PO TID #90 tabs 07/08/23 oxycodone-acetaminophen 7.5 mg-325 1 tab PO Q6H PRN pain #120 tabs 07/08/23 mg tablet (Percocet) tizanidine 4 mg tablet See Rx Instructions .Route 07/15/23 .COMPLEX #30 tabs cefdinir 300 mg capsule 300 mg PO BID 7 days #14 caps 07/26/23 metronidazole 500 mg tablet 500 mg PO BID 7 days #14 tabs 07/26/23 Allergies Allergy/AdvReac Type Severity Reaction Status Date / Time Penicillins [PENICILLINS] Allergy Intermediate Rash/hives Verified 07/26/23 11:03 [facility] Disclaimer: The information contained in this section may have been updated after the patient was seen, as this information can be updated by other users. Medical History Acute right flank pain Allergic rhinitis Allergies Arthritis Bakers cyst CKD (chronic kidney disease) stage 3, GFR 30-59 ml/min Diverticulitis Drug overdose Dyspnea on exertion Encounter for screening for malignant neoplasm of lung in current smoker with 30 pack year history or greater Fracture of toe History of 2019 novel coronavirus disease (COVID-19) History of colon polyps Visualization difficulties noted on multiple colonoscopies. History of COVID-19 History of gastroesophageal reflux (GERD) Hyperlipidemia Most recent lipid panel done January 2023 reveals a total cholesterol 124 triglycerides 134 and LDL of 51 and HDL of 35. Patient is currently taking atorvastatin 40 mg/day we will continue this. Hypertension Hypothyroid Mediastinal lymphadenopathy Overactive bladder Pneumonia [id number] syndrome manifesting as chronic dyspnea Sexual dysfunction Smoking greater than 30 pack years Squamous cell carcinoma Surgical History H/O colonoscopy History of esophagogastroduodenoscopy (EGD) History of total knee arthroplasty S/P skin cancer resection Family History Mother Breast cancer Father Lung cancer Family history of hypertension Grandfather Colon cancer Family history of hypertension Social History Smoking Status: Current every day smoker tobacco type: cigarettes packs per day: 1 years smoked: 1 second hand exposure: Yes alcohol intake: never substance use type: marijuana current occupational status: disabled Travel in the last 8 weeks: None household members: significant other housing: house current occupational exposures/hazards: No caffeine: Yes ROS Obtained: Yes All systems reviewed & no additional complaints except as documented Physical Exam General General appearance: alert and in no apparent distress Head Head exam: atraumatic and normocephalic Eye Eye exam: Present normal appearance, PERRL and EOMI ENT ENT exam: Present mucous membranes moist Neck Neck exam: Present normal inspection, full ROM and trachea midline Respiratory Respiratory exam: Absent respiratory distress, wheezes, stridor, accessory muscle use or prolonged expiratory phase Cardiovascular Cardiovascular exam: Present normal rhythm Abdominal Exam Abdominal exam: Present soft, tenderness and other (Just left of midline abdominal incision with jerod in place. Redness, tenderness, warmth and swelling concerning for shad-incisional abscess.); Absent distention, guarding, rebound or rigidity Extremities Exam Extremities exam: Absent edema Neurological Exam Neurological exam: Present alert, oriented X3, CN II-XII intact and normal gait; Absent motor sensory deficit Skin Skin exam: Present warm and dry; Absent diaphoresis or erythema Medical Decision Making Medical Records Medical records reviewed: Yes I reviewed the patient's medical records. [place] Inquiry Pt receiving controlled substance: No [place] was queried for this patient: No Vital Signs: 07/26/23 11:31 07/26/23 12:01 07/26/23 12:31 Temperature 97.9 F Temperature Source Oral Pulse Rate 68 66 Pulse Rate [Radial] 66 Respiratory Rate 16 Blood Pressure 131/78 136/69 Blood Pressure [Right Arm] 125/39 L Blood Pressure Mean Blood Pressure Mean [Right Arm] 67 Blood Pressure Source [Right Arm] Automatic Cuff Blood Pressure Position [Right Arm] Sitting 02 Sat by Pulse Oximetry 97 97 96 Oxygen Delivery Method Room Air Room Air Room Air 07/26/23 13:00 07/26/23 14:00 Temperature Temperature Source Pulse Rate 66 63 Pulse Rate [Radial] Respiratory Rate 22 20 Blood Pressure 140/78 137/77 Blood Pressure [Right Arm] Blood Pressure Mean 109 108 Blood Pressure Mean [Right Arm] Blood Pressure Source [Right Arm] Blood Pressure Position [Right Arm] 02 Sat by Pulse Oximetry 97 97 Oxygen Delivery Method Lab Data Lab Results 07/26/23 11:54: WBC 7.5, RBC 2.60 L, Hgb 8.3 L, Hct 26.1 L, MCV 100.5 H, MCH 31.9 H, MCHC 31.7 L, RDW 17.1, Plt Count 572 H, MPV 8.2, Neut % (Auto) 82.9 H, Lymph % (Auto) 11.6, [place] % (Auto) 4.0, Eos % (Auto) 1.0, Baso % (Auto) 0.6, Neut # (Auto) 6.2, Lymph # (Auto) 0.9, [place] # (Auto) 0.3, Eos # (Auto) 0.1, Baso # (Auto) 0.1, Sodium 137, Potassium 4.8, Chloride 99, Carbon Dioxide 33 H, Anion Gap 9.8, BUN 17, Creatinine 1.30 H, Estimated Creat Clear 79, Estimated GFR 55 L , Est GFR ( Amer) 67, Glucose 109 H, Lactate 1.3, Calcium 8.7, Total Bilirubin 0.6, AST 122 H, ALT 66, Alkaline Phosphatase 149 H, Total Protein 7.1 D, Albumin 3.5, Globulin 3.6 H, Albumin/Globulin Ratio 1.0 L 07/26/23 12:40: Urine Color Yellow, Urine Appearance Clear, Urine pH 8.0, Ur Specific Bad[place] 1.015, Urine Protein Negative, Urine Glucose (UA) Negative, Urine Ketones Negative, Urine Blood Trace-i, Urine Nitrate Negative, Urine Bilirubin Negative, Urine Urobilinogen 2.0, Ur Leukocyte Esterase Negative, Urine RBC None, Urine WBC None, Ur Squamous Epith Cells Occasional, Amorphous Sediment Trace, Urine Bacteria None 07/26/23 11:54 07/26/23 11:54 Orders (Tests/Meds): ED MEDICATIONS Discontinued Medications Generic Name Dose Route Start Last Admin Trade Name Freq PRN Reason Stop Dose Admin Acetaminophen 1,000 mg 07/26/23 12:14 07/26/23 12:31 Acetaminophen 1,000mg/100ml Vial IV 07/26/23 12:15 1,000 mg ONCE ONE Administration Cefepime HCl 2 gm/ Sodium 100 mls @ 200 mls/hr 07/26/23 12:51 07/26/23 14:04 Chloride IV 07/26/23 13:20 200 mls/hr ONCE ONE Administration Metronidazole 500 mg in 100 mls @ 100 mls/hr 07/26/23 12:51 07/26/23 13:04 Flagyl 500mg/100ml Ivpb IV 07/26/23 13:50 100 mls/hr ONCE ONE Administration Vancomycin HCl 2,000 mg/ 250 mls @ 125 mls/hr 07/26/23 13:00 07/26/23 14:35 Sodium Chloride IV 07/26/23 14:59 125 mls/hr ONCE ONE Administration Iopamidol 75 ml 07/26/23 12:52 07/26/23 12:53 Iopamidol-370 (76%);100ml Bottle IV 07/26/23 12:53 75 ml ONCE ONE Administration Miscellaneous 1 each 07/26/23 13:00 07/26/23 12:57 Vancomycin Consult Request NOTAPPLIC 08/25/23 12:59 1 each CONSULT PHARMACY AMY Administration Morphine Sulfate 4 mg 07/26/23 12:14 07/26/23 12:31 Morphine 4mg/Ml Syringe IV 07/26/23 12:15 4 mg ONCE ONE Administration Ondansetron HCl 4 mg 07/26/23 12:14 07/26/23 12:31 Ondansetron 4mg/2ml Vial IV 07/26/23 12:15 4 mg ONCE ONE Administration Sodium Chloride 10 ml 07/26/23 12:52 07/26/23 12:53 Sodium Chloride 0.9% 10ml Syr (Rad Only) IV 07/26/23 12:53 10 ml ONCE ONE Administration ORDERS Category Date Time Status CT abdomen pelvis w con Stat Cat Scan 07/26/23 12:14 Completed CBC w/Auto Diff [Complete Blood Count Auto Diff] Stat Lab 07/26/23 11:54 Completed CMP [Comprehensive Metabolic Panel] Stat Lab 07/26/23 11:54 Completed Lactic Acid Stat Lab 07/26/23 11:54 Completed UA [Urinalysis and Microscopic] Stat Lab 07/26/23 12:40 Completed Blood Culture Stat Micro 07/26/23 11:50 Received Medical Decision Narrative: 68-year-old male history of CKD, gastric ulcer disease status post hemorrhagic ulcer bleed and emergency ex lap in June 2023 presenting with concern for postop infection. Patient states that he had the surgery, then was flown off to [facility] and stayed in the ICU. Was discharged last Tuesday. Patient states that he has been having redness crop up since that time around the incision. Denies fevers or chills, nausea or vomiting, but has had acute pain that is throbbing and stabbing in the area. Getting worse every day. Has not noticed anything that makes it better or worse in particular. No purulent drainage from the incision. History was obtained via conversation with patient and . On arrival, patient hemodynamically stable, alert, oriented x4, appropriate, GCS 15, moving all extremities spontaneously, pupils equal and reactive to light. Full physical exam performed and significant for shad-incisional redness, warmth, swelling, fluctuance concerning for abscess. Surrounding cellulitis 2. Incision is just left of midline in the abdomen and appears well otherwise. [place] intact. No evidence of peritonitis. Differential includes superficial abscess, deep abscess, staple abscess, cellulitis, intra-abdominal abscess, among others. Patient was given pain, cefepime, Flagyl for symptomatic management and correction of underlying abnormalities. Workup independently interpreted and significant for nonactionable CBC. Stable CKD. UA negative. See radiology read for full review of final results. On reevaluation, additional tests/treatment. Surgery consulted and removed jerod, drained abscess. He has an appointment tomorrow. Given patient p resentation, workup, history, this most likely represents postop abscess. Surgery recommended patient started on gram-negative and anaerobic coverage, this was sent to the pharmacy. Because patient at baseline without signs or symptoms of clinical decompensation, deemed appropriate for discharge. Results were relayed to patient who voiced understanding and were agreeable to outpatient management and follow up. At the time of discharge the patient was hemodynamically stable, tolerating PO, and mobilizing appropriately. Critical Care Critical Care Time Critical Care Time: No
[2023-07-26 13:01] LABS: Squamous Epithelial Cell,Urine Occasional #/hpf (0-5)
[2023-07-26 13:02] LABS: Amorphous Sediment,Urine Trace /lpf
[2023-07-26] MEDS: METRONIDAZ/SOD CHL 500 MG/100 ML PIGGYBACK 100 MG IV (13:04)
[2023-07-26] MEDS: CEFEPIME HCL 2 GM in 0.9 % SODIUM CHLORIDE 100 ML IV (14:04)
[2023-07-26] MEDS: VANCOMYCIN HCL 2,000 MG in 0.9 % SODIUM CHLORIDE 250 ML 125 MG IV (14:35)
== END 2023-07-26 16:49 | disposition home or self-care (01) ==
PROVIDERS: Emergency Provider Emergency Medicine; PCP Internal Medicine
DX: T81.41XA Infection following a procedure, superficial incisional surgical site, initial encounter (principal); I12.9 Hypertensive chronic kidney disease with stage 1 through stage 4 chronic kidney disease, or unspecified chronic kidney disease; N18.30 Chronic kidney disease, stage 3 unspecified; E78.5 Hyperlipidemia, unspecified; E03.9 Hypothyroidism, unspecified; F17.210 Nicotine dependence, cigarettes, uncomplicated; Y83.8 Other surgical procedures as the cause of abnormal reaction of the patient, or of later complication, without mention of misadventure at the time of the procedure
CPT/HCPCS: 74177; 80053; 81001; 83605; 85025; 87040; 96365; 96368; 96375; 99285; J0131; J2405; J3370; Q9967

== ENCOUNTER 2023-07-27 11:57 | Outpatient (CLI) | payer MEDICARE, SELFPAY ==
[2023-07-27 12:20] LABS: Basophils # 0.1 K/mm3 (0-0.2); Basophils % 0.8 % (0.1-2.0); Eosinophils # 0.1 K/mm3 (0.0-0.4); Eosinophils % 1.4 % (0.1-12.0); Hematocrit 27.5 % (42.0-52.0); Hemoglobin 8.6 g/dL (14.1-18.0); Lymphocytes # 0.9 K/mm3 (0.7-4.5); Mean Corpuscular HGB Conc 31.4 g/dL (31.8-35.4); Mean Corpuscular Hemoglobin 32.1 pg (27.0-31.2); Mean Corpuscular Volume 102.1 fl (80-94); Monocytes # 0.3 K/mm3 (0.1-1.0); Monocytes % 4.3 % (1.7-9.3); Neutrophils # 5.3 K/mm3 (1.8-7.8); Neutrophils % 80.5 % (37.0-80.0); Platelet Count 557 K/mm3 (142-424); Red Blood Count 2.69 M/mm3 (4.60-6.20); Red Cell Distribution Width 17.7 % (11.5-17.5); White Blood Count 6.6 K/mm3 (4.8-10.8)
== END 2023-07-27 23:59 ==
LOC: LAB 11:59
PROVIDERS: PCP Internal Medicine; Visit Provider Surgery
DX: I45.2 Bifascicular block (principal)
CPT/HCPCS: 36415; 85025

== ENCOUNTER 2023-09-29 11:09 | Outpatient (CLI) | payer MEDICARE, SELFPAY ==
[2023-09-29 11:22] LABS: Basophils % 0.9 % (0.1-2.0); Eosinophils # 0.1 K/mm3 (0.0-0.4); Eosinophils % 2.1 % (0.1-12.0); Hematocrit 40.6 % (42.0-52.0); Hemoglobin 12.9 g/dL (14.1-18.0); Lymphocytes # 1.2 K/mm3 (0.7-4.5); Lymphocytes % 24.8 % (10-50); Mean Corpuscular HGB Conc 31.7 g/dL (31.8-35.4); Mean Corpuscular Hemoglobin 31.5 pg (27.0-31.2); Mean Corpuscular Volume 99.4 fl (80-94); Mean Platelet Volume 7.3 fl (7.4-10.4); Monocytes # 0.3 K/mm3 (0.1-1.0); Monocytes % 6.7 % (1.7-9.3); Neutrophils # 3.3 K/mm3 (1.8-7.8); Neutrophils % 65.5 % (37.0-80.0); Platelet Count 254 K/mm3 (142-424); Red Blood Count 4.08 M/mm3 (4.60-6.20); Red Cell Distribution Width 14.5 % (11.5-17.5)
[2023-09-29 12:08] LABS: Alanine Aminotransferase 17 U/L (12-78); Albumin Level 4.5 g/dl (3.5-5.0); Albumin/Globulin Ratio 1.6 (1.1-1.8); Alkaline Phosphatase 99 U/L (38-126); Anion Gap 13.7 mEq/L (5-15); Aspartate Amino Transferase 22 U/L (17-59); Bilirubin,Total 0.5 mg/dl (0.2-1.3); Blood Urea Nitrogen 22 mg/dl (9-20); Calcium 9.8 mg/dl (8.4-10.2); Carbon Dioxide 26 mmol/L (22.0-30.0); Chloride 104 mmol/L (98-107); Chol/HDL Ratio 3.3 (1-3.5); Cholesterol 147 mg/dl (140-200); Estimated Glomerular Filt Rate 61 ml/min (>60); GFR (African American) 73 ML/MIN (>60); Globulin 2.8 g/dL (1.3-3.2); Glucose 105 mg/dl (74-100); HDL Cholesterol 45 mg/dl (40-60); Potassium 4.7 mmoL/L (3.5-5.1); Sodium 139 mmol/L (136-145); Total Protein,Serum 7.3 g/dl (6.3-8.2); Triglycerides 104 mg/dl (30-150); VLDL Cholesterol 21 mg/dL (0-40)
[2023-09-29 12:20] LABS: Direct LDL Cholesterol 64.87 mg/dL (100-129)
== END 2023-09-29 23:59 ==
LOC: LAB.DROPOF 11:09
PROVIDERS: PCP Internal Medicine; Visit Provider Internal Medicine
DX: R53.83 Other fatigue (principal); E78.5 Hyperlipidemia, unspecified
CPT/HCPCS: 80053; 80061; 85025

== ENCOUNTER 2023-11-16 06:40 | Day surgery (SDC) | payer MEDICARE, SELFPAY ==
[2023-11-15 10:50] VITALS: BMI 30.4
[2023-11-16] VITALS (9 sets, daily range): BP systolic 93–162; BP diastolic 48–75; PULSE 59–69; RESP 16–18; TEMP 36.1–36.9; O2SAT 92–96
--- NOTE | 2023-11-16 07:01 | [facility].SCOPE ---
Procedure: Date: 11/16/23 Patient Date of :: 1955 Procedure Performed:: Esophagogastroduodenoscopy with biopsy Colonoscopy Indications:: History of peptic ulcer disease History of gastric hemorrhage History of tubular adenoma of colon Note: The patient is status post emergent exploratory laparotomy with gastrotomy and control of gastric hemorrhage in June 2023. His most recent endoscopic evaluation (EGD/colonoscopy) was in April 2022 at which time his known ulcerations were essentially healed (persistent shallow linear changes along the mid gastric body and antrum). The colonoscopic portion of the procedure was complicated by moderate to poor bowel preparation and profound lack of relaxation. Unchanged diverticulosis noted. A shallow ulcerated cecal lesion was biopsied. Benign findings noted. A right colonic polyp was excised with cold biopsy forceps and found to be a tubular adenoma. Polyp at 50 cm was not retrievable secondary to stool burden. Performing Provider:: Mal Waller MD Referring Provider:: . Sedation:: Monitored anesthesia care Procedure:: After informed consent was obtained the patient was taken to the endoscopy suite. Sedation ensued after the patient was transferred to the left lateral decubitus position. Pulse, blood pressure, and oxygen saturation were monitored throughout the procedure. The endoscope was advanced beyond the duodenal bulb. Retroflexion within the gastric lumen was accomplished. The gastroscope was carefully removed. Digital rectal exam revealed no significant abnormality. The colonoscope was placed in position. The entire colon was evaluated. The colonoscope was carefully removed and the patient was transferred to recovery in stable condition. Please see findings and specimens below for detail. Findings:: Sliding hiatal hernia Bile reflux Patchy gastritis Linear gastrotomy healed Bowel preparation moderate to poor Profound spasticity/lack of relaxation Significant tortuosity Pandiverticulosis (worse in sigmoid) Specimens:: Antral biopsy Recommendations:: Barium enema ordered secondary to spasticity/lack of relaxation and tortuosity. Repeat colonoscopy pending results of barium enema but likely in 2-3 years secondary to history of polyps and limitations in visualization. Continue proton pump inhibition. Complications:: No immediate Estimated blood obtained (mL): 1 Colonoscopy Component Colonoscopy Component Was a colonoscopy performed during today's procedure?: Yes Recommended follow up colonoscopy of at least 10 years?: No If no, follow up colonoscopy recommended in ___ years?: (See above) Reason for not recommending >/= 10 yr follow-up interval?: (See above)
--- NOTE | 2023-11-16 07:04 | ECG_ITS ---
APPROVED REPORT Exam: Resting ECG HR:55 bpm ECG Measurements Heart Rate 55 AXES [place] 187 P 55 QRSd 144 QRS -4 QT 434 T -18 QTc 423 Conclusion SINUS BRADYCARDIA RIGHT BUNDLE BRANCH BLOCK [120+ ms QRS DURATION, UPRIGHT V1, 40+ ms S IN I/aVL/V4/V5/V6] Old anteroseptal changes ABNORMAL ECG UNCONFIRMED REPORT Electronically signed by : Toney Harris MD 11/16/2023 07:33:39
[2023-11-16] MEDS: LACTATED RINGERS 1000ML 1,000 ML 25 ML IV (07:11)
--- NOTE | 2023-11-16 07:12 | EXP.ANES.CKL ---
[facility] Disclaimer: The information contained in this section may have been updated after the patient was seen, as this information can be updated by other users. 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 History of 2019 novel coronavirus disease (COVID-19) Encounter for screening for malignant neoplasm of lung in current smoker with 30 pack year history or greater Smoking greater than 30 pack years Allergic rhinitis Overactive bladder Pneumonia History of COVID-19 Sexual dysfunction Arthritis Diverticulitis History of gastroesophageal reflux (GERD) Hypothyroid Allergies Hypertension Hyperlipidemia Bakers cyst Fracture of toe History of colon polyps CKD (chronic kidney disease) stage 3, GFR 30-59 ml/min Squamous cell carcinoma Drug overdose Acute right flank pain Surgical History History of esophagogastroduodenoscopy (EGD) H/O colonoscopy S/P skin cancer resection History of total knee arthroplasty Family History Mother Breast cancer Father Lung cancer Family history of hypertension Grandfather Colon cancer Family history of hypertension Social History Smoking Status: Current every day smoker tobacco type: cigarettes packs per day: 1 years smoked: 1 second hand exposure: Yes alcohol intake: never substance use type: marijuana current occupational status: disabled Travel in the last 8 weeks: None household members: significant other housing: house current occupational exposures/hazards: No caffeine: Yes [facility] Anesthesia Checklist Patient Identification Patient Identification: Arm Band and Verbal (Name & ) Structural Data Admitted From: Home Planned Operative Procedure/s: EGD/Colonoscopy Consent for Planned Operative Procedure(s) Verified: Yes NPO Status Verified Time NPO: 00:00 Additional verifications Anesthesia Reactions: No Hx Blood Transfusions: No Blood Transfusion Reaction: No Airway Assessment Mallampati Score:: Class III C-Spine Mobility Assessed: Yes TMJ Mobility Assessed: Yes Dentition: Edentulous Neurological Assessment Level of Consciousness: Awake Hx Seizures: No Numbness or tingling in extremities: No Anesthesia Plan Anesthesia Risk discussed: Yes Anesthesia Plan: Verified ASA Class: III Anesthesia Type: MAC
--- NOTE | 2023-11-16 08:11 | FL_ITS ---
FINAL REPORT CLINICAL HISTORY: FT: 3:22 mGy: 289.24 history of polyps FINDINGS: GASTROGRAFIN ENEMA HISTORY: Incomplete colonoscopy. PROCEDURE: Gastrografin contrast was instilled into the patient's colon via a rectal tube, using gravity drip. Spot and overhead films were performed. A total of 36 images were saved. FINDINGS: Environmental Services Worker film is unremarkable. Mucosal detail is limited by retained stool. There is mild scattered diverticulosis in the sigmoid and descending colon. Retained stool artifact is identified in the right colon. Contrast refluxes into the appendix and distal small bowel. There is no obvious mass or polypoid lesion. FLUOROSCOPY TIME: 3 minutes 22 seconds Radiation exposure in Reference air Kerma: 289.24 mGy IMPRESSION: No obstructing lesion or obvious mass. Mildly limited examination due to stool in the right colon. Reviewed, Interpreted and Dictated by Sunitha Segura MD Transcribed by Kina Danielson PA-C Authenticated and [facility]
[2023-11-16] MEDS: DIATRIZOATE MEGLUMINE(GASTROGRAFIN) 66%-10% 120ML 480 ML RC (10:13)
== END 2023-11-16 09:40 | disposition home or self-care (01) ==
PROVIDERS: PCP Internal Medicine; Visit Provider Surgery
PROC: 0DJ08ZZ Inspection of Upper Intestinal Tract, Via Natural or Artificial Opening Endoscopic (ICD-10-PCS; CPT 43235; principal; 2023-11-16 07:30)
DX: Z87.11 Personal history of peptic ulcer disease (principal); Z87.19 Personal history of other diseases of the digestive system; K44.9 Diaphragmatic hernia without obstruction or gangrene; K29.60 Other gastritis without bleeding; K31.89 Other diseases of stomach and duodenum; Z86.010 Personal history of colon polyps; K56.2 Volvulus; K57.30 Diverticulosis of large intestine without perforation or abscess without bleeding; Z12.11 Encounter for screening for malignant neoplasm of colon
CPT/HCPCS: 43239; G0105; 74270; 93005; J1610; J2704

== ENCOUNTER 2023-12-27 09:41 | Outpatient (CLI) | payer MEDICARE, SELFPAY ==
[2023-12-27 18:09] LABS: Basophils % 0.4 % (0.1-2.0); Eosinophils # 0.1 K/mm3 (0.0-0.4); Hematocrit 40.3 % (42.0-52.0); Hemoglobin 12.5 g/dL (14.1-18.0); Lymphocytes # 0.9 K/mm3 (0.7-4.5); Lymphocytes % 13.8 % (10-50); Mean Corpuscular HGB Conc 31.1 g/dL (31.8-35.4); Mean Corpuscular Hemoglobin 30.7 pg (27.0-31.2); Mean Corpuscular Volume 98.8 fl (80-94); Mean Platelet Volume 9.6 fl (7.4-10.4); Monocytes # 0.4 K/mm3 (0.1-1.0); Monocytes % 5.7 % (1.7-9.3); Neutrophils # 4.9 K/mm3 (1.8-7.8); Neutrophils % 79.1 % (37.0-80.0); Platelet Count 194 K/mm3 (142-424); Red Blood Count 4.08 M/mm3 (4.60-6.20); Red Cell Distribution Width 16.2 % (11.5-17.5); White Blood Count 6.2 K/mm3 (4.8-10.8)
[2023-12-27 18:29] LABS: Chol/HDL Ratio 3.2 (1-3.5); Cholesterol 155 mg/dl (140-200); HDL Cholesterol 48 mg/dl (40-60); Triglycerides 118 mg/dl (30-150); VLDL Cholesterol 24 mg/dL (0-40)
[2023-12-27 18:39] LABS: Direct LDL Cholesterol 69.64 mg/dL (100-129)
[2023-12-27 19:00] LABS: Thyroid Stimulating Hormone 1.83 uIU/mL (0.465-4.68)
[2023-12-27 19:28] LABS: Hemoglobin A1C 5.2 % (4.0-6.0)
== END 2023-12-27 23:59 | disposition home or self-care (01) ==
LOC: LAB.DROPOF 12-28 09:42
PROVIDERS: PCP Internal Medicine; Visit Provider Internal Medicine
DX: I10 Essential (primary) hypertension (principal); R53.83 Other fatigue; R73.03 Prediabetes; F17.210 Nicotine dependence, cigarettes, uncomplicated
CPT/HCPCS: 80061; 83036; 84443; 85025

== ENCOUNTER 2024-02-20 12:42 | Outpatient (CLI) | payer MEDICARE, SELFPAY ==
--- NOTE | 2024-02-20 12:45 | XR_ITS ---
FINAL REPORT CLINICAL HISTORY: hip pain FINDINGS: RIGHT HIP Two views of the right hip demonstrate no acute fracture or dislocation. There are postoperative changes of the right acetabulum with 2 screw plates and multiple screws in place. There is a presumed chronic fracture of the right inferior pubic ramus. Mild degenerative changes are noted of the right hip. The visualized bony structures are well aligned. No soft tissue abnormality is seen. IMPRESSION: No acute bony abnormality. Reviewed, Interpreted and Dictated by Jeremie Jaramillo III, MD Transcribed by Karin Rogers Authenticated and [facility]
== END 2024-02-20 23:59 | disposition home or self-care (01) ==
LOC: RAD 12:43
PROVIDERS: PCP Internal Medicine; Visit Provider Physician Assistant
DX: M25.551 Pain in right hip (principal)
CPT/HCPCS: 73502

== ENCOUNTER 2024-03-12 07:45 | Day surgery (SDC) | payer MEDICARE, SELFPAY ==
[2024-03-08 14:30] VITALS: BMI 33.0
[2024-03-12 08:01] VITALS: BP 186/82; PULSE 60; RESP 18; TEMP 36.6; O2SAT 96
[2024-03-12] MEDS: LACTATED RINGERS 1000ML 1,000 ML 25 ML IV (09:16)
--- NOTE | 2024-03-12 09:56 | EXP.ANES.CKL ---
[facility] Disclaimer: The information contained in this section may have been updated after the patient was seen, as this information can be updated by other users. Medical History History of colon polyps Visualization difficulties noted on multiple colonoscopies. 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 History of 2019 novel coronavirus disease (COVID-19) Encounter for screening for malignant neoplasm of lung in current smoker with 30 pack year history or greater Smoking greater than 30 pack years Allergic rhinitis Overactive bladder Pneumonia History of COVID-19 Sexual dysfunction Arthritis Diverticulitis History of gastroesophageal reflux (GERD) Hypothyroid Allergies Hypertension Hyperlipidemia Bakers cyst Fracture of toe CKD (chronic kidney disease) stage 3, GFR 30-59 ml/min Squamous cell carcinoma Drug overdose Acute right flank pain Surgical History History of esophagogastroduodenoscopy (EGD) H/O colonoscopy S/P skin cancer resection History of total knee arthroplasty Family History Mother Breast cancer Father Lung cancer Family history of hypertension Grandfather Colon cancer Family history of hypertension Social History Smoking Status: Current every day smoker tobacco type: cigarettes packs per day: 1 years smoked: 1 second hand exposure: Yes alcohol intake: never substance use type: marijuana current occupational status: disabled Travel in the last 8 weeks: None household members: significant other housing: house current occupational exposures/hazards: No caffeine: Yes [facility] Anesthesia Checklist Patient Identification Patient Identification: Arm Band Structural Data Admitted From: Home Planned Operative Procedure/s: Right Hip Injection Consent for Planned Operative Procedure(s) Verified: Yes Verified Documents: Surgical Consent and History and Physical NPO Status Verified Time NPO: 00:00 Additional verifications Anesthesia Reactions: No Hx Blood Transfusions: No Blood Transfusion Reaction: No Airway Assessment Mallampati Score:: Class II C-Spine Mobility Assessed: Yes TMJ Mobility Assessed: Yes Dentition: Edentulous Neurological Assessment Level of Consciousness: Awake, Alert and Appropriate Anesthesia Plan Anesthesia Risk discussed: Yes Anesthesia Plan: Verified ASA Class: III Anesthesia Type: MAC
[2024-03-12] MEDS: TRIAMCINOLONE ACET 40MG/ML VIAL 80 MG (10:11)
[2024-03-12] MEDS: LIDOCAINE 1% 10ML MDV 10 ML (10:11)
[2024-03-12 10:20] VITALS: BP 102/64; PULSE 66; RESP 16; TEMP 37; O2SAT 95
--- NOTE | 2024-03-12 10:20 | EXP.OP.NOTE ---
Date of procedure: 03/12/24 Pre-op Diagnosis:: Right hip posttraumatic osteoarthritis Post-op Diagnosis:: Same Procedure performed:: Right hip injection with arthrogram x-ray guidance for needle placement Surgeon:: Fabio Mckeon DO SILVER RECOVERY OPERATOR:: Tip Ma Anesthesia: MAC Estimated blood loss (mL): 0 Operative findings:: See dictation Operative note:: Patient is identified preoperatively. Right hip marked with yes and my initials. Taken the operative suite. Placed upon the radiolucent bed. Right hip was prepped and draped in normal sterile fashion. Once prepped and draped final operative timeout performed to identify proper patient procedure and extremity. Everyone involved the case agreed. No counter indications to beginning. X-ray was brought in to identify the hip joint. Patient has posterior wall acetabular screws. Proper trajectory of the needle was obtained through x-ray 18-gauge needle was then placed into the hip joint. Contrast was then injected into the hip capsule to confirm proper placement of the needle followed by injection of 80 mg of Kenalog and 3 cc of 1% lidocaine. Needle was then removed and Band-Aid was placed. Condition: stable Disposition: PACU Complications:: None apparent
--- NOTE | 2024-03-12 10:26 | XR_ITS ---
FINAL REPORT CLINICAL HISTORY: hip injection ft 0.1 mn 3.52mgy FINDINGS: A single fluoroscopic spot image was obtained of the right hip. 1 second of fluoroscopy time was reported. 3.52 mGy. IMPRESSION: Fluoroscopic spot film of the right hip as above. Reviewed, Interpreted and Dictated by Rayray Martínez MD Transcribed by Karin Rogers Authenticated and [facility]
[2024-03-12] MEDS: IOPAMIDOL-200 (41%);10ML VIAL 10 ML IV (10:33)
[2024-03-12 10:34] VITALS: BP 97/57; PULSE 61; RESP 16; O2SAT 96
[2024-03-12 10:40] VITALS: BP 107/58; PULSE 58; RESP 16; O2SAT 96
== END 2024-03-12 10:40 | disposition home or self-care (01) ==
PROVIDERS: PCP Internal Medicine; Visit Provider Orthopaedic Surgery
PROC: (CPT 20610; principal; 2024-03-12 09:15)
DX: M16.51 Unilateral post-traumatic osteoarthritis, right hip (principal)
CPT/HCPCS: 20610; 73502; 76000; J2250; J3010; J3301; J7120; Q9966

== ENCOUNTER 2024-03-22 14:58 | Outpatient (CLI) | payer MEDICARE, SELFPAY ==
[2024-03-22 20:27] LABS: Thyroid Stimulating Hormone 5.35 uIU/mL (0.465-4.68)
[2024-03-23 14:47] LABS: Prostate Specific Ag, Diagnost 3.39 ng/ml (0.0-4.0)
== END 2024-03-22 23:59 | disposition home or self-care (01) ==
LOC: LAB.DROPOF 03-23 14:58
PROVIDERS: Internal Medicine; PCP Family Medicine; Visit Provider Family Medicine
DX: R53.83 Other fatigue (principal); N40.0 Benign prostatic hyperplasia without lower urinary tract symptoms
CPT/HCPCS: 84153; 84443

== ENCOUNTER 2024-03-24 07:14 | Inpatient (IN) | payer MEDICARE, SELFPAY ==
[2024-03-24] VITALS (23 sets, daily range): BP systolic 72–176; BP diastolic 41–75; PULSE 58–71; RESP 12–24; TEMP 36.6–36.8; O2SAT 92–100; BMI 33.7
--- NOTE | 2024-03-24 07:14 | ECG_ITS ---
APPROVED REPORT Exam: Resting ECG HR:57 bpm ECG Measurements Heart Rate 57 AXES NC 183 P 57 QRSd 149 QRS 12 QT 420 T 37 QTc 415 Conclusion Sinus bradycardia Right bundle branch block Normal axis Electronically signed by : MARIO MIR, 03/24/2024 13:22:38
[2024-03-24 07:22] LABS: Lactate Venous 1.3 mmol/L (0.4-2.0); VBG Base Excess -9.2 mmol/L (-2.4-2.3); VBG HCO3 19.1 mmol/L (23-30); VBG Oxygen Saturation 77.8 % (50-70); VBG PCO2 52.6 mmol/L (35-51); VBG PO2 48.6 mmol/L (28-40); VBG Total CO2 20.8 mmol/L (23-27)
--- NOTE | 2024-03-24 07:23 | XR_ITS ---
PROCEDURE INFORMATION: Exam: XR Chest Exam date and time: 03/24/2024 8:13 AM Age: 69 years old Clinical indication: Shortness of breath; Additional info: SOCristina, cp, AMS TECHNIQUE: Imaging protocol: Radiologic exam of the chest. Views: 1 view. COMPARISON: CR XR CHEST PORTABLE 09/02/2022 12:00 AM FINDINGS: Lungs: Patchy airspace opacities in the lung bases. Pleural spaces: Unremarkable. No pleural effusion. No pneumothorax. Heart/Mediastinum: Unremarkable. No cardiomegaly. Bones/joints: Unremarkable. IMPRESSION: Patchy airspace opacity lung bases. Pneumonia not excluded
[2024-03-24 07:24] LABS: VBG PH 7.18 mmol/L (7.31-7.41)
[2024-03-24 07:43] LABS: Basophils % 0.3 % (0.1-2.0); Eosinophils # 0.1 K/mm3 (0.0-0.4); Eosinophils % 0.9 % (0.1-12.0); Lymphocytes # 0.8 K/mm3 (0.7-4.5); Lymphocytes % 11.4 % (10-50); Mean Corpuscular HGB Conc 31.4 g/dL (31.8-35.4); Mean Corpuscular Hemoglobin 31.7 pg (27.0-31.2); Mean Platelet Volume 8.5 fl (7.4-10.4); Monocytes # 0.4 K/mm3 (0.1-1.0); Monocytes % 6.5 % (1.7-9.3); Neutrophils # 5.4 K/mm3 (1.8-7.8); Neutrophils % 80.9 % (37.0-80.0); Platelet Count 143 K/mm3 (142-424); Red Blood Count 3.17 M/mm3 (4.60-6.20); White Blood Count 6.7 K/mm3 (4.8-10.8)
[2024-03-24] MEDS: ASPIRIN 81MG CHEWABLE TABLET 324 MG PO (07:44)
[2024-03-24] MEDS: NALOXONE 0.4MG/ML VIAL 0.4 MG IV (07:44)
[2024-03-24] MEDS: IPRATROPIUM/ALBUTEROL 3 ML NEB 9 ML IH (07:44)
[2024-03-24 07:45] LABS: Alanine Aminotransferase 16 U/L (12-78); Albumin Level 3.5 g/dl (3.5-5.0); Albumin/Globulin Ratio 1.3 (1.1-1.8); Alkaline Phosphatase 69 U/L (38-126); Anion Gap 9.6 mEq/L (5-15); Aspartate Amino Transferase 23 U/L (17-59); Bilirubin,Total 0.5 mg/dl (0.2-1.3); Blood Urea Nitrogen 55 mg/dl (9-20); Calcium 8.4 mg/dl (8.4-10.2); Carbon Dioxide 24 mmol/L (22.0-30.0); Chloride 110 mmol/L (98-107); Creatinine Clearance Estimated 37 mL/min (50-200); Estimated Glomerular Filt Rate 22 ml/min (>60); GFR (African American) 26 ML/MIN (>60); Globulin 2.6 g/dL (1.3-3.2); Glucose 102 mg/dl (74-100); Lipase 41 U/L (23-300); Potassium 5.6 mmoL/L (3.5-5.1); Sodium 138 mmol/L (136-145); Total Protein,Serum 6.1 g/dl (6.3-8.2)
[2024-03-24 07:46] LABS: Activated Partial Thrombo Time 29.9 seconds (22.8-30.6)
[2024-03-24 07:58] LABS: NT Pro Brain Natriuretic Pep. 623 pg/mL (0-125); Troponin I < 0.01 ng/ml (0.00-0.034)
[2024-03-24 08:02] LABS: T4 (Thyroxine) 5.4 ug/dl (5.53-11.0)
[2024-03-24] MEDS: CEFTRIAXONE SODIUM 2 GM in 0.9 % SODIUM CHLORIDE 100 ML IV (08:07)
[2024-03-24] MEDS: VANCOMYCIN CONSULT REQUEST 1 EACH NOTAPPLIC (08:15)
[2024-03-24 08:16] LABS: Thyroid Stimulating Hormone 2.81 uIU/mL (0.465-4.68)
[2024-03-24] MEDS: VANCOMYCIN/WATER FOR INJ (PEG) 1.75 GM/350 ML PIGGYBACK IV (08:16)
--- NOTE | 2024-03-24 08:33 | ED_ITS ---
Discharge Plan Disposition Patient Disposition: Admitted Chief Complaint: Weakness Clinical Impressions Clinical Impression: Acute hypoxemic respiratory failure, Sepsis, Consolidation of right lower lobe of lung Discharge ED Provider: Jeff Vick General Adult HPI General Chief complaint: Weakness Stated complaint: Weakness Time Seen by Provider: 03/24/24 07:18 History of Present Illness HPI narrative: Please note that above description of symptoms, in this electronic medical record under categorization of recalled from ER triage doctor by RN are reflective of an initial nursing assessment, however, is not reflective of my full history and physical exam that was personally taken and clarified. Consequentially, this preceding description of symptoms, which may include the patient's categorized chief complaint in the EMR, do not reflect my personal clinical impression, and the ultimate description of history of present illness and patient stated complaints should be deferred to this section of the note. Unless stated otherwise or congruent with this section of the note, additional signs, symptoms, or incongruence should be interpreted as inaccurate with my clinical impression. Related Data Home Medications ?Medication ?Instructions ?Recorded ?Confirmed levothyroxine 125 mcg tablet 125 mcg PO DAILY 03/24/24 03/24/24 montelukast 10 mg tablet 10 mg PO PM 03/24/24 03/24/24 oxycodone 10 mg tablet 10 mg PO Q8HP PRN Moderate Pain 03/24/24 03/24/24 (Scale Score 5-6) pantoprazole 40 mg tablet,delayed 40 mg PO BID 03/24/24 03/24/24 release promethazine 25 mg tablet 25 mg PO Q6HP PRN nausea and 03/24/24 03/24/24 vomiting terazosin 2 mg capsule 2 mg PO DAILY 03/24/24 03/24/24 tizanidine 4 mg tablet 4 mg PO TIDP PRN Muscle Spasm 03/24/24 03/24/24 valsartan 80 mg tablet 80 mg PO DAILY 03/24/24 03/24/24 Previous Rx's ?Medication ?Instructions ?Recorded blood pressure monitor (Blood #1 ea 12/22/22 Pressure Kit) duloxetine 30 mg capsule,delayed 30 mg PO DAILY 90 days #90 caps 09/29/23 release atorvastatin 40 mg tablet 40 mg PO HS #90 tabs 11/17/23 amlodipine 5 mg tablet 5 mg PO DAILY #90 tabs 03/02/24 gabapentin 600 mg tablet 600 mg PO TID #90 tabs 03/22/24 Allergies Allergy/AdvReac Type Severity Reaction Status Date / Time Penicillins [PENICILLINS] Allergy Intermediate Rash/hives Verified 03/22/24 10:50 [facility] Disclaimer: The information contained in this section may have been updated after the patient was seen, as this information can be updated by other users. Medical History History of colon polyps Visualization difficulties noted on multiple colonoscopies. 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 History of 2019 novel coronavirus disease (COVID-19) Encounter for screening for malignant neoplasm of lung in current smoker with 30 pack year history or greater Smoking greater than 30 pack years Allergic rhinitis Overactive bladder Pneumonia History of COVID-19 Sexual dysfunction Arthritis Diverticulitis History of gastroesophageal reflux (GERD) Hypothyroid Allergies Hypertension Hyperlipidemia Bakers cyst Fracture of toe CKD (chronic kidney disease) stage 3, GFR 30-59 ml/min Squamous cell carcinoma Drug overdose Acute right flank pain Surgical History History of esophagogastroduodenoscopy (EGD) H/O colonoscopy S/P skin cancer resection History of total knee arthroplasty Family History Mother Breast cancer Father Lung cancer Family history of hypertension Grandfather Colon cancer Family history of hypertension Social History Smoking Status: Current every day smoker tobacco type: cigarettes packs per day: 1 years smoked: 1 second hand exposure: Yes alcohol intake: never substance use type: marijuana current occupational status: disabled Travel in the last 8 weeks: None household members: significant other housing: house current occupational exposures/hazards: No caffeine: Yes ROS Obtained: Yes unobtainable due to mental status Physical Exam General General appearance: in no apparent distress and lethargic Head Head exam: atraumatic and normocephalic Eye Eye exam: Present normal appearance, PERRL, EOMI and conjunctival injection ENT ENT exam: Present mucous membranes dry Neck Neck exam: Present normal inspection, full ROM and trachea midline Respiratory Respiratory exam: Present wheezes and prolonged expiratory phase; Absent respiratory distress, stridor or accessory muscle use Cardiovascular Cardiovascular exam: Present regular rate, normal rhythm and other (Pulses equal symmetric in upper and lower extremities) Abdominal Exam Abdominal exam: Present soft; Absent distention, tenderness or pulsatile mass Extremities Exam Extremities exam: Absent edema Neurological Exam Neurological exam: Present CN II-XII intact and other (GCS 14 for opens eyes to voice); Absent motor sensory deficit Skin Skin exam: Present warm and dry; Absent diaphoresis or erythema Medical Decision Making Medical Records Medical records reviewed: Yes I reviewed the patient's medical records. [place] Inquiry Pt receiving controlled substance: No [place] was queried for this patient: No Vital Signs: 03/24/24 08:45 03/24/24 08:55 03/24/24 09:30 Pulse Rate 66 60 Respiratory Rate 15 18 Blood Pressure 93/48 L 75/44 L Blood Pressure Mean 79 51 02 Sat by Pulse Oximetry 98 99 100 Oxygen Delivery Method BiPAP BiPAP BiPAP 03/24/24 09:42 03/24/24 09:44 03/24/24 09:50 Pulse Rate 60 61 62 Respiratory Rate 18 15 16 Blood Pressure 72/41 L 79/45 L 78/43 L Blood Pressure Mean 48 56 52 02 Sat by Pulse Oximetry 100 100 100 Oxygen Delivery Method BiPAP BiPAP BiPAP 03/24/24 09:55 03/24/24 10:00 03/24/24 10:31 Pulse Rate 68 60 Respiratory Rate 16 15 16 Blood Pressure 84/45 L 92/50 L 133/65 Blood Pressure Mean 53 59 84 02 Sat by Pulse Oximetry 100 100 97 Oxygen Delivery Method BiPAP BiPAP BiPAP Lab Data Lab Results 03/24/24 07:10: WBC 6.7, RBC 3.17 L, Hgb 10.0 L, Hct 32.0 L, MCV 101.0 H, MCH 31.7 H, MCHC 31.4 L, RDW 16.0, Plt Count 143, MPV 8.5, Neut % (Auto) 80.9 H, Lymph % (Auto) 11.4, [place] % (Auto) 6.5, Eos % (Auto) 0.9, Baso % (Auto) 0.3, Neut # (Auto) 5.4, Lymph # (Auto) 0.8, [place] # (Auto) 0.4, Eos # (Auto) 0.1, Baso # (Auto) 0.0, APTT 29.9, VBG pH 7.18 L, VBG pCO2 52.6 H, VBG pO2 48.6 H, VBG HCO3 19.1 L, VBG Total CO2 20.8 L, VBG O2 Saturation 77.8 H, VBG Base Excess - 9.2 L, VBG Lactic Acid 1.3, Sodium 138, Potassium 5.6 H, Chloride 110 H, Carbon Dioxide 24, Anion Gap 9.6, BUN 55 H, Creatinine 2.90 H, Estimated Creat Clear 37, Estimated GFR 22 L, Est GFR ( Amer) 26 L, Glucose 102 H, Calcium 8.4, Total Bilirubin 0.5, AST 23, ALT 16, Alkaline Phosphatase 69, Troponin I < 0.01, NT-Pro-B Natriuret Pep 623 H, Total Protein 6.1 L, Albumin 3.5, Globulin 2.6, Albumin/Globulin Ratio 1.3, Lipase 41, TSH 2.81 D, Thyroxine (T4) 5.4 L, S alicylates < 1.0 L, Acetaminophen < 10 L, Plasma/Serum Alcohol < 10 03/24/24 10:10: Urine Opiates Screen Positive H, Urine Methadone Screen Negative, Ur Barbituates Screen Negative, Ur Phencyclidine Scrn Negative, Ur Amphetamines Screen Negative, U Benzodiazepines Scrn Negative, Urine Cocaine Screen Negative, U Marijuana (THC) Screen Negative 03/24/24 10:30: Troponin I < 0.01 03/24/24 07:10 03/24/24 07:10 Orders (Tests/Meds): ED MEDICATIONS Generic Name Dose Route Start Last Admin Trade Name Freq PRN Reason Stop Dose Admin Acetaminophen 1,000 mg 03/24/24 10:50 Acetaminophen 500mg Tab PO 04/23/24 10:49 Q6HP PRN Fever or Mild Pain (1-3) Albuterol/Ipratropium 3 ml 03/24/24 12:00 Ipratropium/Albuterol 3 Ml [facility] 04/23/24 11:59 Q6RT [facility] Budesonide 0.5 mg 03/24/24 18:00 Budesonide 0.5mg/2ml [facility] 04/23/24 17:59 BIDRT [facility] Doxycycline Hyclate 100 mg 03/24/24 10:45 Doxycycline Hycl 100 Mg Tablet PO 04/03/24 10:44 BID AMY Norepinephrine/Dextrose 8 mg in 250 mls @ 3.75 mls/hr 03/24/24 09:53 03/24/24 10:19 Norepinephrine 8mg/250ml-D5w Premix IV 04/23/24 09:52 8 mcg/min .Q24H AMY 15 mls/hr Administration Protocol 2 MCG/MIN Sodium Chloride 1,000 mls @ 150 mls/hr 03/24/24 10:45 Sod Chlor 0.9% 1000ml Bag IV 04/23/24 10:44 .Q6H40M AMY Ceftriaxone Sodium 2 gm/ 100 mls @ 200 mls/hr 03/25/24 09:00 Sodium Chloride IV 04/04/24 08:59 Q24H AMY Levothyroxine Sodium 125 mcg 03/24/24 10:45 Levothyroxine 125mcg (0.125mg) Tab PO 04/23/24 10:44 DAILYDM AMY Nicotine 21 mg 03/24/24 10:38 Nicotine 21mg/24hr Patch TD 04/23/24 10:37 DAILYP PRN Nicotine Cravings Ondansetron HCl 4 mg 03/24/24 10:33 Ondansetron 4mg/2ml Vial IV 04/23/24 10:32 Q8HP PRN Nausea Pantoprazole Sodium 40 mg 03/24/24 10:45 Pantoprazole 40mg Tablet PO 04/23/24 10:44 BID AMY Sodium Bicarbonate 650 mg 03/24/24 13:00 Sodium Bicarbonate 650mg Tablet PO 04/23/24 12:59 TID AMY Sodium Chloride 10 ml 03/24/24 10:50 Sodium Chloride 0.9% 10ml Flush Syringe IV 04/23/24 10:49 NEEDED PRN Maintain IV Site Discontinued Medications Generic Name Dose Route Start Last Admin Trade Name Freq PRN Reason Stop Dose Admin Albuterol/Ipratropium 9 ml 03/24/24 07:23 03/24/24 07:44 Ipratropium/Albuterol 3 Ml Neb IH 03/24/24 07:24 9 ml ONCE ONE Administration Aspirin 324 mg 03/24/24 07:23 03/24/24 07:44 Aspirin 81mg Chewable Tablet PO 03/24/24 07:24 324 mg ONCE ONE Administration Ceftriaxone Sodium 2 gm/ 100 mls @ 200 mls/hr 03/24/24 07:26 03/24/24 08:07 Sodium Chloride IV 03/24/24 07:55 200 mls/hr ONCE ONE Administration Sodium Chloride 2,190 mls @ 1,095 mls/hr 03/24/24 08:05 03/24/24 10:35 Sod Chlor 0.9% 1000ml Bag 30 ml/kg infuse over 2 hr (2190 ml) 03/24/24 10:04 1,095 mls/hr IV Administration .Q2H ONE Vancomycin/PEG/NADA/Lysine/Water 1.75 gm in 350 mls @ 175 mls/hr 03/24/24 08:15 03/24/24 08:16 Vancomycin 1.75gm/350ml (Peg) Premix IV 03/24/24 10:14 175 mls/hr ONCE ONE Administration Miscellaneous 1 each 03/24/24 07:30 03/24/24 08:15 Vancomycin Consult Request NOTAPPLIC 04/23/24 07:29 1 each CONSULT PHARMACY AMY Administration Naloxone HCl 0.4 mg 03/24/24 07:23 03/24/24 07:44 Naloxone 0.4mg/Ml Vial IV 03/24/24 07:24 0.4 mg ONCE ONE Administration Naloxone HCl 0.4 mg 03/24/24 07:41 03/24/24 07:51 Naloxone 2mg/2ml Syringe IV 03/24/24 07:42 Not Given ONCE ONE Naloxone HCl 0.4 mg 03/24/24 10:07 Naloxone 0.4mg/Ml Vial IV 03/24/24 10:08 ONCE ONE ORDERS Category Date Time Status CT head/brain wo con Stat Cat Scan 03/24/24 08:49 Completed XR chest portable Stat Exams 03/24/24 07:23 Completed Acetaminophen Stat Lab 03/24/24 07:10 Completed Ammonia Stat Lab 03/24/24 07:10 Ordered Basic Metabolic Panel AMLAB Lab 03/25/24 06:00 Ordered Basic Metabolic Panel AMLAB Lab 03/26/24 06:00 Ordered Basic Metabolic Panel AMLAB Lab 03/27/24 06:00 Ordered C-Reactive Protein AMLAB Lab 03/25/24 06:00 Ordered C-Reactive Protein Stat Lab 03/24/24 07:10 Received Complete Blood Count Auto Diff AMLAB Lab 03/25/24 06:00 Ordered Complete Blood Count Auto Diff AMLAB Lab 03/26/24 06:00 Ordered Complete Blood Count Auto Diff AMLAB Lab 03/27/24 06:00 Ordered Complete Blood Count Auto Diff Stat Lab 03/24/24 07:10 Completed Comprehensive Metabolic Panel Stat Lab 03/24/24 07:10 Completed Drug Screen,Urine Stat Lab 03/24/24 10:10 Completed Ethanol [Ethyl Alcohol] Stat Lab 03/24/24 07:10 Completed Iron and TIBC AMLAB Lab 03/25/24 06:00 Ordered Lipase Stat Lab 03/24/24 07:10 Completed NT Pro Brain Natriuretic Pep. Stat Lab 03/24/24 07:10 Completed PTT [Activated Partial Thrombo Time] Stat Lab 03/24/24 07:10 Completed Procalcitonin DAILY Lab 03/25/24 06:00 Ordered Rapid PCR Covid and Flu A/B Routine Lab 03/24/24 10:59 Received Salicylate Stat Lab 03/24/24 07:10 Completed T4 (Thyroxine) Stat Lab 03/24/24 07:10 Completed TSH [Thyroid Stimulating Hormone] Stat Lab 03/24/24 07:10 Completed Troponin I Q3H Lab 03/24/24 10:30 Completed Troponin I Q3H Lab 03/24/24 13:30 Ordered Troponin I Stat Lab 03/24/24 07:10 Completed Vitamin B12 DAILY Lab 03/25/24 06:00 Ordered Blood Culture Stat Micro 03/24/24 07:40 Received MRSA Screen Routine Micro 03/24/24 10:59 Ordered Venous Blood Gas Routine RT 03/24/24 07:10 Completed Venous Blood Gas Stat RT 03/24/24 07:25 Ordered HEART Score History (anamnesis): Slightly suspicious ECG: Normal Age: >65 years Risk factors: 3 or more risk factors Troponin: </= normal limit HEART Score: 4 Medical Decision Narrative: 69-year-old male who hypertension, hyperlipidemia, smoking history CKD COPD not on home oxygen, AAA that is rupture and repair, presenting with altered mental status. Last known well last night around 10 PM. This morning, found patient minimally responsive, but still breathing. EMS was called. Patient's glucose was in the 160s with EMS. EKG without acute STEMI. Was brought to the emergency department for further evaluation. EMS states that patient, when jostled, would wake up, answer questions appropriately. Here in the emergency department, patient following commands with bilateral upper and lower extremities, lethargic. Has no complaints when woken up. History was obtained via conversation with patient and EMS. On arrival, patient hemodynamically stable, GCS 14, moving all extremities spontaneously, pupils equal and reactive to light. Full physical exam performed and significant for lethargic appearing male in no acute distress. Intermittently waking up and answering questions. Pupils are 2 mm to 3 mm and reactive bilaterally. He does have bilateral conjunctival injection. Bilateral, diffuse wheezes. No lower extremity edema. Grossly neurologically intact without focal deficit. Differential includes intoxication, polypharmacy, ACS, CO, CVA, intracranial bleed, metabolic, endocrinologic, among others. Patient placed on continuous cardiac monitoring and continuous pulse ox with initial blood pressure 93/40, heart rate 66, saturation 98% on 4 L nasal cannula. Independent interpretation of EKG shows 57 beats minute sinus bradycardia right bundle branch block morphology with wide QRS 149, NE 183, QTc 415. Leftward axis. Patient was given DuoNebs, 0.4 mg Narcan IV, empiric vancomycin and ceftriaxone for symptomatic management and correction of underlying abnormalities. Workup independently interpreted and significant for mixed metabolic and respiratory acidosis. Tox labs are normal including acetaminophen, aspirin, ethanol. On independent interpretation of imaging, patient has concern for right lower lobar pneumonia with mild obscuring of diaphragmatic border. No acute intracranial hemorrhage. See radiology read for full review of final results. UDS opiate positive. Heart score 4. Another 0.4 mg Narcan administered, patient little more active and alert. On reevaluation after Narcan, BiPAP, fluids, patient more alert, answering questions appropriately, NIHSS still 0. Pupils are now 4 to 5 mm and reactive. I feel is most consistent with opiate toxicity, likely overdose and aspiration causing right lower lobe pneumonia. This likely resulting in sepsis. Patient having decreasing blood pressures with systolics in the 70s, diastolics in the 40s, norepinephrine was started. Hospital medicine contacted and case was discussed at length, to be admitted. Because patient high risk for clinical decompensation, deemed appropriate for inpatient admission. Results were relayed to patient who voiced understanding and patient was agreeable to inpatient admission and management. Patient was admitted to the hospital for further definitive management. Purchase Price Analyst disclaimer Much of this encounter note is an electronic lead sql developer spoken language to printed text. Electronic lead sql developer of the spoken language may permit errors. Although I have reviewed the note, some errors may still exist. Critical Care Critical Care Time Critical Care Time: Yes (respiratory, CV, ID) Attestation: On 03/24/24, the high probability of a clinically significant, sudden or life threatening deterioration of the following system(s) required my full and direct attention, intervention and personal management. The time I documented below is in addition to time spent performing reported procedures but includes the following listed in this critical care notation. Total Time Total Critical Care Time: 60
--- NOTE | 2024-03-24 08:35 | PC.NURSE ---
Respiratory notified of bipap order.
--- NOTE | 2024-03-24 08:49 | CT_ITS ---
PROCEDURE INFORMATION: Exam: CT Head Without Contrast Exam date and time: 03/24/2024 9:10 AM Age: 69 years old Clinical indication: Alteration of consciousness; Other: AMS TECHNIQUE: Imaging protocol: Computed tomography of the head without contrast. Radiation optimization: All CT scans at this facility use at least one of these dose optimization techniques: automated exposure control; mA and/or kV adjustment per patient size (includes targeted exams where dose is matched to clinical indication); or iterative reconstruction. 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 No acute large territorial infarct hemorrhage mass effect or midline shift Cerebral ventricles: No ventriculomegaly. Paranasal sinuses: Visualized sinuses are unremarkable. No fluid levels. Mastoid air cells: Visualized mastoid air cells are well aerated. Bones: Unremarkable. No acute fracture. Soft tissues: Unremarkable. IMPRESSION: No acute intracranial abnormality is appreciated
--- NOTE | 2024-03-24 09:04 | PC.NURSE ---
pt to ct dr dangelo at bedside to update family
[2024-03-24 09:05] LABS: Acetaminophen < 10 ug/ml (10-30); Salicylate < 1.0 mg/dL (2.0-20.0)
[2024-03-24] MEDS: 0.9 % SODIUM CHLORIDE 1000ML 2,190 ML 1095 ML IV (09:30)
--- NOTE | 2024-03-24 09:56 | PC.NURSE ---
md aware of low bp
[2024-03-24] MEDS: NOREPINEPHRINE BITARTRATE/D5W 8 MG/250 ML PLAST..BAG 15 MG IV (10:19)
[2024-03-24 10:39] LABS: Benzodiazepines Screen,Urine Negative ng/ml (<200)
[2024-03-24 10:40] LABS: Amphetamine/Metha Screen,Urine Negative ng/ml (<1000); Barbiturates Screen,Urine Negative ng/ml (<200)
[2024-03-24 10:41] LABS: Methadone Screen,Urine Negative ng/ml (<300)
[2024-03-24 10:42] LABS: Cannabinoid Screen,Urine Negative ng/ml (<50); Cocaine Screen,Urine Negative ng/ml (<300)
[2024-03-24 10:43] LABS: Opiate Screen,Urine Positive ng/ml (<300)
[2024-03-24 10:44] LABS: Phencyclidine Screen,Urine Negative ng/ml (<25)
[2024-03-24 10:46] LABS: Ethyl Alcohol < 10 mg/dl (0-10)
--- NOTE | 2024-03-24 10:46 | P.HP_ITS ---
History of Present Illness *Admission Date: 03/24/24 *Reason for visit:: Altered mental status *History of present illness: This is a 69-year-old male that presents to [facility] emergency department for family concerns of altered mental status. He is chronically prescribed opioids with previous history of chronically prescribed benzodiazepine and noted routine marijuana use. In the ED he required Narcan administrations with noted improvement to interacting and answering questions. His chest x-ray identified concerns for aspiration pneumonia. He required IV pressor support to maintain appropriate MAP. We were asked to admit for ongoing care. [facility] Medical History History of colon polyps Visualization difficulties noted on multiple colonoscopies. 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 History of 2019 novel coronavirus disease (COVID-19) Encounter for screening for malignant neoplasm of lung in current smoker with 30 pack year history or greater Smoking greater than 30 pack years Allergic rhinitis Overactive bladder Pneumonia History of COVID-19 Sexual dysfunction Arthritis Diverticulitis History of gastroesophageal reflux (GERD) Hypothyroid Allergies Hypertension Hyperlipidemia Bakers cyst Fracture of toe CKD (chronic kidney disease) stage 3, GFR 30-59 ml/min Squamous cell carcinoma Drug overdose Acute right flank pain Surgical History History of esophagogastroduodenoscopy (EGD) H/O colonoscopy S/P skin cancer resection History of total knee arthroplasty Family History Mother Breast cancer Father Lung cancer Family history of hypertension Grandfather Colon cancer Family history of hypertension Social History (Updated 03/24/24 @ 12:52 by Fatemeh Tobias RN) Smoking Status: Current every day smoker tobacco type: cigarettes packs per day: 1 years smoked: 1 second hand exposure: Yes alcohol intake: never substance use type: marijuana current occupational status: disabled Travel in the last 8 weeks: None household members: significant other housing: house current occupational exposures/hazards: No caffeine: Yes Review of Systems Review of Systems Review of systems:: pertinent systems reviewed and negative unless documented below Meds Home Medications and Allergies Home Medications ?Medication ?Instructions ?Recorded ?Confirmed ?Type blood pressure monitor (Blood #1 ea 12/22/22 03/24/24 Rx Pressure Kit) duloxetine 30 mg capsule,delayed 30 mg PO DAILY 90 days #90 caps 09/29/23 03/24/24 Rx release atorvastatin 40 mg tablet 40 mg PO HS #90 tabs 11/17/23 03/24/24 Rx amlodipine 5 mg tablet 5 mg PO DAILY #90 tabs 03/02/24 03/24/24 Rx gabapentin 600 mg tablet 600 mg PO TID #90 tabs 03/22/24 03/24/24 Rx levothyroxine 125 mcg tablet 125 mcg PO DAILY 03/24/24 03/24/24 History montelukast 10 mg tablet 10 mg PO PM 03/24/24 03/24/24 History oxycodone 10 mg tablet 10 mg PO Q8HP PRN Moderate Pain 03/24/24 03/24/24 History (Scale Score 5-6) pantoprazole 40 mg tablet,delayed 40 mg PO BID 03/24/24 03/24/24 History release promethazine 25 mg tablet 25 mg PO Q6HP PRN nausea and 03/24/24 03/24/24 History vomiting terazosin 2 mg capsule 2 mg PO DAILY 03/24/24 03/24/24 History tizanidine 4 mg tablet 4 mg PO TIDP PRN Muscle Spasm 03/24/24 03/24/24 History valsartan 80 mg tablet 80 mg PO DAILY 03/24/24 03/24/24 History New Prescriptions to Start Prescriptions: Allergies Allergy/AdvReac Type Severity Reaction Status Date / Time Penicillins [PENICILLINS] Allergy Intermediate Rash/hives Verified 03/22/24 10:50 Exam Data for Last 24 hours Vital signs and Labs for Last 24 Hours: Pulse Resp BP Pulse Ox O2 Del Method FiO2 60 16 133/65 97 BiPAP 50 03/24/24 10:00 03/24/24 10:31 03/24/24 10:31 03/24/24 10:31 03/24/24 10:31 03/24/24 08:45 Laboratory Results - last 24 hr 03/24/24 07:10: WBC 6.7, RBC 3.17 L, Hgb 10.0 L, Hct 32.0 L, MCV 101.0 H, MCH 31.7 H, MCHC 31.4 L, RDW 16.0, Plt Count 143, MPV 8.5, Neut % (Auto) 80.9 H, Lymph % (Auto) 11.4, [place] % (Auto) 6.5, Eos % (Auto) 0.9, Baso % (Auto) 0.3, Neut # (Auto) 5.4, Lymph # (Auto) 0.8, [place] # (Auto) 0.4, Eos # (Auto) 0.1, Baso # (Auto) 0.0, APTT 29.9, VBG pH 7.18 L, VBG pCO2 52.6 H, VBG pO2 48.6 H, VBG HCO3 19.1 L, VBG Total CO2 20.8 L, VBG O2 Saturation 77.8 H, VBG Base Excess - 9.2 L, VBG Lactic Acid 1.3, Sodium 138, Potassium 5.6 H, Chloride 110 H, Carbon Dioxide 24, Anion Gap 9.6, BUN 55 H, Creatinine 2.90 H, Estimated Creat Clear 37, Estimated GFR 22 L, Est GFR ( Amer) 26 L, Glucose 102 H, Calcium 8.4, Total Bilirubin 0.5, AST 23, ALT 16, Alkaline Phosphatase 69, Troponin I < 0.01, NT-Pro-B Natriuret Pep 623 H, Total Protein 6.1 L, Albumin 3.5, Globulin 2.6, Albumin/Globulin Ratio 1.3, Lipase 41, TSH 2.81 D, Thyroxine (T4) 5.4 L, Salicylates < 1.0 L, Acetaminophen < 10 L 03/24/24 10:10: Urine Methadone Screen Negative, Ur Barbituates Screen Negative, Ur Amphetamines Screen Negative, U Benzodiazepines Scrn Negative I & O for Last 24 hours: Intake & Output 03/21/24 03/22/24 03/23/24 03/24/24 23:59 23:59 23:59 23:59 Weight 106.594 kg Constitutional Constitutional: no acute distress, obese, chronically ill appearing, disheveled and cooperative *Routine HEENT Exam Head: Present normocephalic and atraumatic Eye: Present EOMI and PERRL ENT: Present mucous membranes dry *Routine Neck Exam Neck: Present supple; Absent JVD or lymphadenopathy *Routine Respiratory Exam Respiratory: Present rhonchi, normal respiratory effort and symmetric chest movement *Routine Cardiovascular Exam Cardiovascular: Present RRR *Routine Abdominal Exam Abdominal: Present soft and normoactive bowel sounds; Absent tenderness *Routine Rectal Exam Rectal:: deferred *Routine Genitalia Exam Genitalia:: deferred *Routine Extremities Exam Extremities: Present full ROM and pulses intact; Absent edema *Routine Skin Exam Skin: Present warm; Absent rash *Routine Neurological Exam Neurological: Present alert, oriented X3, vision grossly intact, hearing grossly intact and normal speech; Absent sensory deficit, motor deficit or altered mental status Routine Psychiatric Exam Psychiatric: Present normal affect, normal thought process, cooperative and good insight Assessment and Plan *Assessment and plan (1) Toxic encephalopathy: Status: Acute Category: Medical Code(s): G92.9 - Unspecified toxic encephalopathy (2) Opioid abuse with intoxication, with delirium: Status: Acute Category: Medical Code(s): F11.121 - Opioid abuse with intoxication delirium (3) Aspiration pneumonitis: Status: Acute Category: Medical Code(s): J69.0 - Pneumonitis due to inhalation of food and vomit (4) Acute kidney injury: Status: Acute Category: Medical Code(s): N17.9 - Acute kidney failure, unspecified Plan 69-year-old male chronically prescribed controlled substances that presents with toxic encephalopathy that resolved with Narcan administration. Problems addressed as follows: Toxic encephalopathy Chronically prescribed opioids Opioid abuse with intoxication and delirium Hypotension in the ED Telemetry monitoring Benzodiazepine therapy IV fluid resuscitation IV pressor support as needed Drug therapy requiring intensive monitoring for toxicity Routine blood pressure monitoring IV fluid resuscitation Education and counseling Aspiration pneumonitis Pulse oximetry monitoring Trending labs and inflammatory markers Antibiotic therapy Acute kidney injury Chronic kidney disease stage III Baseline creatinine 1.2 IV fluid resuscitation Avoiding NSAIDs Trending electrolytes and creatinine The length of stay for this patient will be 2 midnights or greater due to above diagnoses.
[2024-03-24 11:00] LABS: C-Reactive Protein 15.1 mg/L (0-4)
--- NOTE | 2024-03-24 11:00 | PC.NURSE ---
LICENSED PSYCHOLOGIST MANAGER NOTIFIED OF ADMISSION
--- NOTE | 2024-03-24 11:01 | HMH.PHAINT1 ---
Pharmacy Intervention Comments: MEDICATION RECONCILIATION COMPLETED ON PATIENT USING EXTERNAL FILL HISTORY FROM PHARMACY AND LIST FROM PCP OFFICE. -ELIJAH GUIDRY, FRANKIED
[2024-03-24 11:05] LABS: Troponin I < 0.01 ng/ml (0.00-0.034)
[2024-03-24 11:09] LABS: Coronavirus 19, PCR Not Detected (NotDetected); Influenza A, PCR Not Detected (NotDetected); Influenza B, PCR Not Detected (NotDetected)
[2024-03-24 11:27] LABS: Ammonia < 9 umol/L (9-30)
--- NOTE | 2024-03-24 11:27 | PC.NURSE ---
Called report to MALISSA John on Med Surg
[2024-03-24] MEDS: IPRATROPIUM/ALBUTEROL 3 ML NEB IH (11:32)
--- NOTE | 2024-03-24 13:30 | PC.NURSE ---
Patient able to tolerate 4-6 ounces of water with no sign of dysphagia. Patient able to swallow po medications with no difficulty noted.
[2024-03-24] MEDS: SODIUM BICARBONATE 650MG TABLET 650 MG PO (13:34)
[2024-03-24] MEDS: LEVOTHYROXINE 125MCG (0.125MG) TAB 125 MCG PO (13:34)
[2024-03-24] MEDS: DOXYCYCLINE HYCL 100 MG TABLET PO (13:34)
[2024-03-24] MEDS: PANTOPRAZOLE 40MG TABLET 40 MG PO (13:34)
--- NOTE | 2024-03-24 17:12 | PC.NURSE ---
Levophed drip weaned from 8 mcg to standby. Patient tolerating well. Oxygen weaned from bipap to 2LNC. Patient able to sit in chair for most of shift. Perry catheter draining well, urine clear and light yellow. Patient alert and oriented times 4.
--- NOTE | 2024-03-24 17:40 | PC.NURSE ---
Patient asking for pain medication. Acetaminophen offered but patient and patient's family stated he could not have the acetaminophen due to a AAA rupture repair. Dr. Yan made aware of patient request and concern for acetaminophen. Dr. Yan clarified that acetaminophen was ok to use as the patient should refrain from aspirin or nsaid medications and that no narcotics were being ordered due to patient's state on arrival to ed and admission. Dr. Yan stated patient needed to wait 24 hours before narcotic administration due to recent respiratory suppression, lethargy, narcan administration, and need for bipap to maintain respirations. Patient educated on plan of care and why narcotics were not being ordered by the doctor. Patient's fiance stated he could be home, watching his blood pressure and taking his pain medication and she would sign herself out . Patient is alert and oriented times 4 and educated about the need to check his blood pressure before taking blood pressure medications due to the need for levophed during admission. Patient stated that he understood. Patient stated he wanted to leave. Charge nurse and Dr. Yan notified and at bedside. ama paper signed.
--- NOTE | 2024-03-24 19:43 | EXP.DC.SUM ---
General Admission date:: 03/24/24 Discharge date: 03/24/24 HPI HPI HPI: This is a 69-year-old male that presents to [facility] emergency department for family concerns of altered mental status. He is chronically prescribed opioids with previous history of chronically prescribed benzodiazepine and noted routine marijuana use. In the ED he required Narcan administrations with noted improvement to interacting and answering questions. His chest x-ray identified concerns for aspiration pneumonia. He required IV pressor support to maintain appropriate MAP. We were asked to admit for ongoing care. Hospital Course Hospital Course Hospital Course: The patient was admitted to the telemetry unit with routine vitals. Imaging, labs, cultures and inflammatory markers were assessed. He was provided IV fluid resuscitation with improved blood pressures. His mental status returned to baseline and he identified improvement. His significant other came to visit. The patient reported that he was ready to leave. I was accompanied by nursing staff to discuss the patient's desire to leave AGAINST MEDICAL ADVICE. The patient was no longer intoxicated. He was free from distracting pain and appear to have intact insight, judgment and reason during my evaluation. In my medical opinion the patient has the capacity to make decisions. The patient is also not under any duress to leave the hospital. In this scenario it would be battery to subject the patient to treatment against his will. I have voiced my concerns for the patient's health given that a full evaluation and treatment have not occurred. I have discussed the need for continued evaluation and treatment secondary to his diagnoses that present a risk of or morbidity. Risks including but not limited to permanent disability, prolonged hospitalization, prolonged illness and were discussed. The patient insisted on leaving AMA. He voiced taking responsibility for his decision making. Because I have been unable to convince the patient to stay, I offered him the opportunity to ask questions about his condition and to return to the ED with any concerns. I emphasized that leaving AGAINST MEDICAL ADVICE does not preclude returning to the ED for further evaluation. I strongly encouraged the patient to return to any ED at any time particularly with worsening symptoms. Exam Data for Last 24 hours Vital signs and Labs for Last 24 Hours: Temp Pulse Resp BP Pulse Ox O2 Del Method O2 Flow Rate 97.8 F 71 22 111/64 95 Nasal Cannula 2 03/24/24 16:00 03/24/24 17:00 03/24/24 17:00 03/24/24 17:00 03/24/24 17:00 03/24/24 17:00 03/24/24 17:00 FiO2 50 03/24/24 11:34 Laboratory Results - last 24 hr 03/24/24 07:10: WBC 6.7, RBC 3.17 L, Hgb 10.0 L, Hct 32.0 L, MCV 101.0 H, MCH 31.7 H, MCHC 31.4 L, RDW 16.0, Plt Count 143, MPV 8.5, Neut % (Auto) 80.9 H, Lymph % (Auto) 11.4, [place] % (Auto) 6.5, Eos % (Auto) 0.9, Baso % (Auto) 0.3, Neut # (Auto) 5.4, Lymph # (Auto) 0.8, [place] # (Auto) 0.4, Eos # (Auto) 0.1, Baso # (Auto) 0.0, APTT 29.9, VBG pH 7.18 L, VBG pCO2 52.6 H, VBG pO2 48.6 H, VBG HCO3 19.1 L, VBG Total CO2 20.8 L, VBG O2 Saturation 77.8 H, VBG Base Excess -9.2 L, VBG Lactic Acid 1.3, Sodium 138, Potassium 5.6 H, Chloride 110 H, Carbon Dioxide 24, Anion Gap 9.6, BUN 55 H, Creatinine 2.90 H, Estimated Creat Clear 37, Estimated GFR 22 L, Est GFR ( Amer) 26 L, Glucose 102 H, Calcium 8.4, Total Bilirubin 0.5, AST 23, ALT 16, Alkaline Phosphatase 69, Troponin I < 0.01, C-Reactive Protein 15.1 H, NT-Pro-B Natriuret Pep 623 H, Total Protein 6.1 L, Albumin 3.5, Globulin 2.6, Albumin/Globulin Ratio 1.3, Lipase 41, TSH 2.81 D, Thyroxine (T4) 5.4 L, Salicylates < 1.0 L, Acetaminophen < 10 L, Plasma/Serum Alcohol < 10 03/24/24 10:10: Urine Opiates Screen Positive H, Urine Methadone Screen Negative, Ur Barbituates Screen Negative, Ur Phencyclidine Scrn Negative, Ur Amphetamines Screen Negative, U Benzodiazepines Scrn Negative, Urine Cocaine Screen Negative, U Marijuana (THC) Screen Negative 03/24/24 10:30: Troponin I < 0.01 03/24/24 10:59: SARS-CoV-2 (PCR) Not detected, Influenza A Untype (PCR) Not detected, Influenza Type B (PCR) Not detected 03/24/24 11:10: Ammonia < 9 L I & O for Last 24 hours: Intake & Output 03/21/24 03/22/24 03/23/24 03/24/24 23:59 23:59 23:59 23:59 Intake Total 32.062 / 32.062 Output Total 1000 / 1000 Balance -967.938 / -967.938 Weight 106.594 kg Constitutional Constitutional: no acute distress, obese, chronically ill appearing and disheveled *Routine HEENT Exam Head: Present normocephalic and atraumatic Eye: Present EOMI and PERRL *Routine Respiratory Exam Respiratory: Present rhonchi, normal respiratory effort and symmetric chest movement *Routine Cardiovascular Exam Cardiovascular: Present RRR *Routine Abdominal Exam Abdominal: Present soft and normoactive bowel sounds *Routine Extremities Exam Extremities: Absent edema *Routine Skin Exam Skin: Absent rash *Routine Neurological Exam Neurological: Present alert, oriented X3, moving all extremities, vision grossly intact, hearing grossly intact and normal speech; Absent sensory deficit or motor deficit Routine Psychiatric Exam Psychiatric: Present normal affect, normal thought process and cooperative Results Data Completed and Pending Labs on day of discharge: Labs from last 24 hours 03/24/24 03/24/24 03/24/24 11:10 10:59 10:30 WBC RBC Hgb Hct MCV MCH MCHC RDW Plt Count MPV Neut % (Auto) Lymph % (Auto) Free[place] % (Auto) Eos % (Auto) Baso % (Auto) Neut # (Auto) Lymph # (Auto) [place] # (Auto) Eos # (Auto) Baso # (Auto) APTT VBG pH VBG pCO2 VBG pO2 VBG HCO3 VBG Total CO2 VBG O2 Saturation VBG Base Excess VBG Lactic Acid Sodium Potassium Chloride Carbon Dioxide Anion Gap BUN Creatinine Estimated Creat Clear Estimated GFR Est GFR ( Amer) Glucose Calcium Total Bilirubin AST ALT Alkaline Phosphatase Ammonia < 9 L Troponin I < 0.01 C-Reactive Protein NT-Pro-B Natriuret Pep Total Protein Albumin Globulin Albumin/Globulin Ratio Lipase TSH Thyroxine (T4) Salicylates Urine Opiates Screen Urine Methadone Screen Acetaminophen Ur Barbituates Screen Ur Phencyclidine Scrn Ur Amphetamines Screen U Benzodiazepines Scrn Urine Cocaine Screen U Marijuana (THC) Screen Plasma/Serum Alcohol SARS-CoV-2 (PCR) Not detected Influenza A Untype (PCR) Not detected Influenza Type B (PCR) Not detected 03/24/24 03/24/24 10:10 07:10 WBC 6.7 RBC 3.17 L Hgb 10.0 L Hct 32.0 L MCV 101.0 H MCH 31.7 H MCHC 31.4 L RDW 16.0 Plt Count 143 MPV 8.5 Neut % (Auto) 80.9 H Lymph % (Auto) 11.4 Free[place] % (Auto) 6.5 Eos % (Auto) 0.9 Baso % (Auto) 0.3 Neut # (Auto) 5.4 Lymph # (Auto) 0.8 [place] # (Auto) 0.4 Eos # (Auto) 0.1 Baso # (Auto) 0.0 APTT 29.9 VBG pH 7.18 L VBG pCO2 52.6 H VBG pO2 48.6 H VBG HCO3 19.1 L VBG Total CO2 20.8 L VBG O2 Saturation 77.8 H VBG Base Excess -9.2 L VBG Lactic Acid 1.3 Sodium 138 Potassium 5.6 H Chloride 110 H Carbon Dioxide 24 Anion Gap 9.6 BUN 55 H Creatinine 2.90 H Estimated Creat Clear 37 Estimated GFR 22 L Est GFR ( Amer) 26 L Glucose 102 H Calcium 8.4 Total Bilirubin 0.5 AST 23 ALT 16 Alkaline Phosphatase 69 Ammonia Troponin I < 0.01 C-Reactive Protein 15.1 H NT-Pro-B Natriuret Pep 623 H Total Protein 6.1 L Albumin 3.5 Globulin 2.6 Albumin/Globulin Ratio 1.3 Lipase 41 TSH 2.81 D Thyroxine (T4) 5.4 L Salicylates < 1.0 L Urine Opiates Screen Positive H Urine Methadone Screen Negative Acetaminophen < 10 L Ur Barbituates Screen Negative Ur Phencyclidine Scrn Negative Ur Amphetamines Screen Negative U Benzodiazepines Scrn Negative Urine Cocaine Screen Negative U Marijuana (THC) Screen Negative Plasma/Serum Alcohol < 10 SARS-CoV-2 (PCR) Influenza A Untype (PCR) Influenza Type B (PCR) DS: Diagnosis Discharge Diagnosis (1) Toxic encephalopathy: Status: Acute Code(s): G92.9 - Unspecified toxic encephalopathy (2) Opioid abuse with intoxication, with delirium: Status: Acute Code(s): F11.121 - Opioid abuse with intoxication delirium (3) Aspiration pneumonitis: Status: Acute Code(s): J69.0 - Pneumonitis due to inhalation of food and vomit (4) Acute kidney injury: Status: Acute Code(s): N17.9 - Acute kidney failure, unspecified Meds Home Medications and Allergies Home Medications ?Medication ?Instructions ?Recorded ?Confirmed ?Type blood pressure monitor (Blood #1 ea 12/22/22 03/24/24 Rx Pressure Kit) duloxetine 30 mg capsule,delayed 30 mg PO DAILY 90 days #90 caps 09/29/23 03/24/24 Rx release atorvastatin 40 mg tablet 40 mg PO HS #90 tabs 11/17/23 03/24/24 Rx amlodipine 5 mg tablet 5 mg PO DAILY #90 tabs 03/02/24 03/24/24 Rx gabapentin 600 mg tablet 600 mg PO TID #90 tabs 03/22/24 03/24/24 Rx levothyroxine 125 mcg tablet 125 mcg PO DAILY 03/24/24 03/24/24 History montelukast 10 mg tablet 10 mg PO PM 03/24/24 03/24/24 History oxycodone 10 mg tablet 10 mg PO Q8HP PRN Moderate Pain 03/24/24 03/24/24 History (Scale Score 5-6) pantoprazole 40 mg tablet,delayed 40 mg PO BID 03/24/24 03/24/24 History release promethazine 25 mg tablet 25 mg PO Q6HP PRN nausea and 03/24/24 03/24/24 History vomiting terazosin 2 mg capsule 2 mg PO DAILY 03/24/24 03/24/24 History tizanidine 4 mg tablet 4 mg PO TIDP PRN Muscle Spasm 03/24/24 03/24/24 History valsartan 80 mg tablet 80 mg PO DAILY 03/24/24 03/24/24 History New Prescriptions to Start Prescriptions: Allergies Allergy/AdvReac Type Severity Reaction Status Date / Time Penicillins [PENICILLINS] Allergy Intermediate Rash/hives Verified 03/22/24 10:50 Discharge Plan Disposition Patient Disposition: Left Against Medical Advice Condition: Serious Patient Discharge Instructions Print Language: Citizen Of [place] Providers Admit Provider: Godwin Yan Attending Provider: Godwin Yan
[2024-03-26 09:16] LABS: Microscopic, Urine URINE MICROSCOPIC (MICROSCOPIC)
[2024-03-26 10:01] LABS: Appearance,Urine CLEAR (Clear); Bilirubin,Urine Negative (Negative); Blood, Urine Negative (Negative); Color,Urine YELLOW (Yellow); Glucose,Urine (UA) Negative (Negative); Ketones,Urine Negative (Negative); Leukocyte Esterase,Urine Negative (Negative); Nitrate,Urine Negative (Negative); Protein,Urine Negative (Negative); Urobilinogen,Urine 0.2 EU/dl (0.2)
== END 2024-03-24 17:56 | disposition left against medical advice (07) | DRG 177 ==
LOC: ER 07:33 → 2ND 11:12
PROVIDERS: Admitting Provider Family Medicine; Emergency Provider Emergency Medicine; PCP Internal Medicine; Visit Provider Family Medicine
DX: J69.0 Pneumonitis due to inhalation of food and vomit (principal); G92.9 Unspecified toxic encephalopathy; J96.90 Respiratory failure, unspecified, unspecified whether with hypoxia or hypercapnia; F11.121 Opioid abuse with intoxication delirium; N17.9 Acute kidney failure, unspecified; I12.9 Hypertensive chronic kidney disease with stage 1 through stage 4 chronic kidney disease, or unspecified chronic kidney disease; N18.30 Chronic kidney disease, stage 3 unspecified; M19.90 Unspecified osteoarthritis, unspecified site; E03.9 Hypothyroidism, unspecified; Z85.828 Personal history of other malignant neoplasm of skin; F17.210 Nicotine dependence, cigarettes, uncomplicated; J44.9 Chronic obstructive pulmonary disease, unspecified
CPT/HCPCS: 51702; 70450; 71045; 80053; 80307; 80320; 80329; 81001; 82140; 82803; 83690; 83880; 84153; 84436; 84443; 84484; 85025; 85730; 86140; 87040; 87081; 87636; 93005; 94640; 99291; G0480; J0696; J2310; J7030; J7620

== ENCOUNTER 2024-04-10 11:10 | Outpatient (CLI) | payer MEDICARE, SELFPAY ==
[2024-04-10 18:07] LABS: Basophils % 0.5 % (0.1-2.0); Hematocrit 49.8 % (42.0-52.0); Hemoglobin 15.5 g/dL (14.1-18.0); Lymphocytes # 0.9 K/mm3 (0.7-4.5); Lymphocytes % 21.3 % (10-50); Mean Corpuscular HGB Conc 31.2 g/dL (31.8-35.4); Mean Corpuscular Volume 102.7 fl (80-94); Mean Platelet Volume 8.4 fl (7.4-10.4); Monocytes # 0.2 K/mm3 (0.1-1.0); Monocytes % 5.1 % (1.7-9.3); Neutrophils # 3.1 K/mm3 (1.8-7.8); Neutrophils % 72.1 % (37.0-80.0); Platelet Count 150 K/mm3 (142-424); Red Blood Count 4.85 M/mm3 (4.60-6.20); Red Cell Distribution Width 15.4 % (11.5-17.5); White Blood Count 4.3 K/mm3 (4.8-10.8)
[2024-04-10 19:23] LABS: Total Iron Binding Capacity 359 ug/dL (261-462)
[2024-04-10 19:51] LABS: Ferritin 18.4 ng/ml (17.9-464)
[2024-04-10 20:10] LABS: Iron 85 ug/dL (49-181)
[2024-04-10 21:37] LABS: Vitamin B12 255 pg/mL (239-931)
[2024-04-10 21:39] LABS: Folate 5.89 ng/mL
[2024-04-12 17:44] LABS: Peripheral Smear Review Scanned Result
== END 2024-04-10 23:59 | disposition home or self-care (01) ==
LOC: LAB.DROPOF 04-11 11:11
PROVIDERS: PCP Internal Medicine; Visit Provider Internal Medicine
DX: A41.9 Sepsis, unspecified organism (principal); R53.83 Other fatigue; E66.9 Obesity, unspecified; D64.9 Anemia, unspecified; K63.3 Ulcer of intestine; Z68.32 Body mass index [BMI] 32.0-32.9, adult; F11.121 Opioid abuse with intoxication delirium; J18.1 Lobar pneumonia, unspecified organism; N40.1 Benign prostatic hyperplasia with lower urinary tract symptoms; M19.041 Primary osteoarthritis, right hand; M19.042 Primary osteoarthritis, left hand; Z79.899 Other long term (current) drug therapy; N18.32 Chronic kidney disease, stage 3b; E78.2 Mixed hyperlipidemia; I65.23 Occlusion and stenosis of bilateral carotid arteries; E03.9 Hypothyroidism, unspecified; I12.9 Hypertensive chronic kidney disease with stage 1 through stage 4 chronic kidney disease, or unspecified chronic kidney disease; E53.9 Vitamin B deficiency, unspecified
CPT/HCPCS: 82607; 82728; 82746; 83540; 83550; 85025

== ENCOUNTER 2024-10-17 16:19 | Outpatient (CLI) | payer MEDICARE, SELFPAY ==
[2024-10-17 16:11] LABS: Basophils % 0.4 % (0.1-2.0); Eosinophils # 0.2 K/mm3 (0.0-0.4); Eosinophils % 3.1 % (0.1-12.0); Hematocrit 38.5 % (42.0-52.0); Hemoglobin 12.4 g/dL (14.1-18.0); Lymphocytes % 21.1 % (10-50); Mean Corpuscular HGB Conc 32.2 g/dL (31.8-35.4); Mean Corpuscular Hemoglobin 30.8 pg (27.0-31.2); Mean Corpuscular Volume 95.8 fl (80-94); Mean Platelet Volume 10.8 fl (7.4-10.4); Monocytes # 0.6 K/mm3 (0.1-1.0); Monocytes % 11.7 % (1.7-9.3); Neutrophils % 63.3 % (37.0-80.0); Platelet Count 181 K/mm3 (142-424); Red Blood Count 4.02 M/mm3 (4.60-6.20); Red Cell Distribution Width 13.4 % (11.5-17.5); White Blood Count 4.8 K/mm3 (4.8-10.8)
[2024-10-17 17:06] LABS: Albumin Level 4.5 g/dl (3.5-5.0); Chloride 103 mmol/L (98-107); Potassium 4.8 mmoL/L (3.5-5.1); Sodium 141 mmol/L (136-145)
[2024-10-17 17:08] LABS: Alanine Aminotransferase 15 U/L (12-78); Anion Gap 15.8 mEq/L (5-15); Aspartate Amino Transferase 25 U/L (17-59); Blood Urea Nitrogen 21 mg/dl (9-20); Carbon Dioxide 27 mmol/L (22.0-30.0); Estimated Glomerular Filt Rate 47 ml/min (>60); GFR (African American) 56 ML/MIN (>60)
[2024-10-17 17:09] LABS: Albumin/Globulin Ratio 1.7 (1.1-1.8); Alkaline Phosphatase 88 U/L (38-126); Bilirubin,Total 0.5 mg/dl (0.2-1.3); Calcium 9.1 mg/dl (8.4-10.2); Chol/HDL Ratio 2.6 (1-3.5); Cholesterol 111 mg/dl (140-200); Globulin 2.6 g/dL (1.3-3.2); Glucose 111 mg/dl (74-100); HDL Cholesterol 43 mg/dl (40-60); Total Protein,Serum 7.1 g/dl (6.3-8.2); Triglycerides 87 mg/dl (30-150); VLDL Cholesterol 17 mg/dL (0-40)
[2024-10-17 17:20] LABS: Direct LDL Cholesterol 45.85 mg/dL (100-129)
[2024-10-17 17:40] LABS: Thyroid Stimulating Hormone 0.83 uIU/mL (0.465-4.68)
== END 2024-10-17 23:59 | disposition home or self-care (01) ==
LOC: LAB.DROPOF 16:19
PROVIDERS: PCP Internal Medicine; Visit Provider Internal Medicine
DX: E03.9 Hypothyroidism, unspecified (principal); E78.2 Mixed hyperlipidemia; I10 Essential (primary) hypertension
CPT/HCPCS: 80053; 80061; 84443; 85025

== ENCOUNTER 2024-10-23 09:45 | Outpatient (CLI) | payer MEDICARE, SELFPAY ==
[2024-10-23] MEDS: ALBUTEROL 0.083% 2.5 MG/3 ML NEB IH (10:17)
--- NOTE | 2024-10-23 10:18 | PC.NURSE ---
PFT completed without incident. Albuterol 0.083% given via HHN per written protocol Pt tolerated tx well.
--- NOTE | 2024-10-23 10:52 | XR_ITS ---
FINAL REPORT CLINICAL HISTORY: Smoker with cough and wheezing FINDINGS: There is mild scarring or atelectasis in the right lung base. The left lung is clear. There is no evidence of effusion or other pleural disease. The mediastinum has a normal appearance. The cardiac silhouette is unremarkable. IMPRESSION: Mild right base atelectasis/scarring. Reviewed, Interpreted and Dictated by Sunitha Segura MD Transcribed by Yuly Tiwari Authenticated and [facility]
== END 2024-10-23 23:59 | disposition home or self-care (01) ==
LOC: RT 09:47
PROVIDERS: PCP Internal Medicine; Visit Provider Internal Medicine
DX: R06.2 Wheezing (principal); R05.9 Cough, unspecified; F17.210 Nicotine dependence, cigarettes, uncomplicated
CPT/HCPCS: 71046; 94010; 94727; 94729; J7613

== ENCOUNTER 2024-11-12 12:30 | Emergency (ER) | payer MEDICARE, SELFPAY ==
[2024-11-12] VITALS (27 sets, daily range): BP systolic 71–136; BP diastolic 38–67; PULSE 64–78; RESP 10–20; TEMP 36.8; O2SAT 91–96; BMI 39.8
--- NOTE | 2024-11-12 12:41 | ECG_ITS ---
APPROVED REPORT Exam: Resting ECG HR:65 bpm ECG Measurements Heart Rate 65 AXES NC 148 P 35 QRSd 161 QRS -14 QT 427 T 12 QTc 439 Conclusion SINUS RHYTHM INTRAVENTRICULAR CONDUCTION DELAY [130+ ms QRS DURATION] No STEMI Electronically signed by : CECI AVINA, 11/13/2024 14:40:08
--- NOTE | 2024-11-12 12:41 | CT_ITS ---
FINAL REPORT TECHNIQUE: Axial CT images were performed through the head. Coronal reformatted images were submitted. This study was performed with techniques to keep radiation doses as low as reasonably achievable (ALARA). Individualized dose reduction techniques using automated exposure control or adjustment of mA and/or kV according to the patient's size were employed. CLINICAL HISTORY: possible stroke COMPARISON: 03/24/2024 FINDINGS: Mild atrophy is noted. There are areas of decreased attenuation in the posterior right temporal and occipital lobes, probably due to sequela from prior infarcts. There is no evidence of hemorrhage. There is no mass or edema identified. There is no abnormal extra-axial fluid seen. Lobular mucoperiosteal thickening in both maxillary sinuses and ethmoid air cells is consistent with chronic sinusitis. IMPRESSION: No definite acute intracranial process. Reviewed, Interpreted and Dictated by Rayray Martínez MD Transcribed by Cami Abdalla Authenticated and . [facility]
--- NOTE | 2024-11-12 12:42 | CT_ITS ---
FINAL REPORT TECHNIQUE: Axial images were obtained of the cervical spine by computed tomography. Coronal and sagittal reconstruction process performed. This study was performed with techniques to keep radiation doses as low as reasonably achievable (ALARA). Individualized dose reduction techniques using automated exposure control or adjustment of mA and/or kV according to the patient''s size were employed. CLINICAL HISTORY: fall, trauma, AMS, pain, cough/SOA, h/o IVDU COMPARISON: None FINDINGS: CT CERVICAL SPINE: Cervical vertebrae show normal height. There is a mild broad-based C2-3 disc protrusion, with mild central canal stenosis. There is no malalignment. The facets are properly aligned, with severe bilateral facet hypertrophy in the mid cervical spine on the left, and in the lower cervical spine on the right. No acute bony abnormalities are identified. IMPRESSION: Degenerative change as described, without acute bony abnormality. Reviewed, Interpreted and Dictated by Rayray Martínez MD Transcribed by Yoselin Toribio Authenticated and [facility]
--- NOTE | 2024-11-12 12:42 | CT_ITS ---
FINAL REPORT TECHNIQUE: Axial images were obtained of the lumbar spine by computed tomography. Coronal and sagittal reconstruction process performed. This study was performed with techniques to keep radiation doses as low as reasonably achievable (ALARA). Individualized dose reduction techniques using automated exposure control or adjustment of mA and/or kV according to the patient''s size were employed. CLINICAL HISTORY: fall, trauma, AMS, pain, cough/SOA, h/o IVDU COMPARISON: None FINDINGS: CT LUMBAR SPINE: Lumbar vertebrae show normal height. Disc spaces are well-preserved. There is no malalignment. The facets are properly aligned. There are anterior osteophytes eccentric to the left at the L1-2 and L2-3 levels. Mild annular bulges are present at the L3-4, L4-5, and L5-S1 levels, with moderate bilateral neural foraminal narrowing at these levels. IMPRESSION: Mild and moderate degenerative change, without acute bony abnormality. Reviewed, Interpreted and Dictated by Rayray Martínez MD Transcribed by Yoselin Toribio Authenticated and [facility]
--- NOTE | 2024-11-12 12:42 | CT_ITS ---
FINAL REPORT TECHNIQUE: Axial images were obtained of the thoracic spine by computed tomography. Coronal and sagittal reconstruction process performed. This study was performed with techniques to keep radiation doses as low as reasonably achievable (ALARA). Individualized dose reduction techniques using automated exposure control or adjustment of mA and/or kV according to the patient's size were employed. CLINICAL HISTORY: fall, trauma, AMS, pain, cough/SOA, h/o IVDU COMPARISON: None FINDINGS: CT THORACIC SPINE: Thoracic vertebrae show normal height. Disc spaces are well-preserved. There is no malalignment. The facets are properly aligned. There are moderate anterior osteophytes in the mid and lower thoracic spine. IMPRESSION: Moderate anterior osteophytes in the mid and lower thoracic spine, without acute bony abnormality. Reviewed, Interpreted and Dictated by Rayray Martínez MD Transcribed by Yoselin Toribio Authenticated and . [facility]
[2024-11-12 12:45] LABS: Basophils % 0.3 % (0.1-2.0); Eosinophils % 0.3 % (0.1-12.0); Hematocrit 32.4 % (42.0-52.0); Hemoglobin 10.7 g/dL (14.1-18.0); Lymphocytes # 0.5 K/mm3 (0.7-4.5); Mean Corpuscular Hemoglobin 31.6 pg (27.0-31.2); Mean Corpuscular Volume 95.6 fl (80-94); Mean Platelet Volume 11.8 fl (7.4-10.4); Monocytes # 1.2 K/mm3 (0.1-1.0); Monocytes % 12.2 % (1.7-9.3); Neutrophils # 8.3 K/mm3 (1.8-7.8); Neutrophils % 81.8 % (37.0-80.0); Nucleated Red Blood Cells # 0 10^3/uL; Nucleated Red Blood Cells % 0 %; Platelet Count 172 K/mm3 (142-424); Red Blood Count 3.39 M/mm3 (4.60-6.20); Red Cell Distribution Width 13.9 % (11.5-17.5); Red Cell Distribution Width-SD 48.9 fL; White Blood Count 10.1 K/mm3 (4.8-10.8)
[2024-11-12 12:47] LABS: MANUAL DIFFERENTIAL MANUAL DIFFERENTIAL (MANUAL DIFF)
[2024-11-12 12:49] LABS: Albumin Level 4.1 g/dl (3.5-5.0); Chloride 100 mmol/L (98-107)
[2024-11-12 12:50] LABS: Potassium 4.8 mmoL/L (3.5-5.1); Sodium 131 mmol/L (136-145)
[2024-11-12 12:52] LABS: Alanine Aminotransferase 14 U/L (12-78); Albumin/Globulin Ratio 1.5 (1.1-1.8); Alkaline Phosphatase 67 U/L (38-126); Anion Gap 18.8 mEq/L (5-15); Aspartate Amino Transferase 33 U/L (17-59); Bilirubin,Total 1.1 mg/dl (0.2-1.3); Blood Urea Nitrogen 68 mg/dl (9-20); Carbon Dioxide 17 mmol/L (22.0-30.0); Creatinine Clearance Estimated 13 mL/min (50-200); Estimated Glomerular Filt Rate 6 ml/min (>60); GFR (African American) 7 ML/MIN (>60); Globulin 2.8 g/dL (1.3-3.2); Total Protein,Serum 6.9 g/dl (6.3-8.2); Triglycerides 125 mg/dl (30-150); VBG Base Excess -11.4 mmol/L (-2.4-2.3); VBG HCO3 17.2 mmol/L (23-30); VBG Oxygen Saturation 96.1 % (50-70); VBG PCO2 48.6 mmol/L (35-51); VBG PO2 90.7 mmol/L (28-40); VBG Total CO2 18.7 mmol/L (23-27); VLDL Cholesterol 25 mg/dL (0-40)
--- NOTE | 2024-11-12 12:52 | ED_ITS ---
Discharge Plan Disposition Patient Disposition: Xfer Short-Term Hosp Condition: Good Prescriptions Prescriptions: No Action (DME) blood pressure monitor [Blood Pressure Kit] Kit See Rx Instructions .Route Qty: 1 0RF Rx Instructions: As directed albuterol sulfate 90 mcg/actuation HFA aerosol inhaler 2 puff inhalation Q4-6H PRN (Reason: shortness of breath or wheezing) Qty: 8.5 5RF triamcinolone acetonide 0.1 % cream 1 applic topical TID PRN (Reason: rash) Qty: 453.6 0RF oxybutynin chloride 10 mg tablet extended release 24hr 10 mg PO DAILY Qty: 90 3RF tamsulosin [Flomax] 0.4 mg capsule 0.4 mg PO DAILY Qty: 30 3RF bisoprolol fumarate 5 mg tablet 5 mg PO PM Qty: 30 2RF Rx Instructions: Take valsartan and bisoprolol about 12 hours apart. atorvastatin 40 mg tablet 40 mg PO HS Qty: 90 2RF amlodipine 5 mg tablet 5 mg PO DAILY Qty: 90 3RF tizanidine 4 mg tablet 4 mg PO TIDP PRN (Reason: Muscle Spasm) 90 Days Qty: 270 4RF levothyroxine 125 mcg tablet 125 mcg PO DAILY 90 Days Qty: 90 3RF montelukast 10 mg tablet 10 mg PO PM Qty: 90 3RF valsartan 80 mg tablet 80 mg PO DAILY Qty: 90 1RF duloxetine 30 mg capsule,delayed release(DR/EC) 30 mg PO DAILY 90 Days Qty: 90 1RF pantoprazole 40 mg tablet,delayed release (DR/EC) 40 mg PO BID Qty: 180 1RF promethazine 25 mg tablet 25 mg PO Q6HP PRN (Reason: nausea and vomiting) Referrals Follow up/Referrals: Provider,Referral, MD [Primary Care Provider] - See instructions Clinical Impressions Clinical Impression: ALONZO (acute kidney injury), Acute hypoxemic respiratory failure, Hyponatremia, Rhabdomyolysis, Shock, Renal cyst, Sepsis due to pneumonia, Hypocalcemia, Transient neurological symptoms, Metabolic acidosis Print Language Print Language: Luxem[place] Discharge ED Provider: Noni Hernandez General Adult HPI General Chief complaint: Neuro Symptoms/Deficit Stated complaint: Stroke Time Seen by Provider: 11/12/24 12:35 Mode of Arrival: EMS Source of Information: Patient and EMS Description of Symptoms (Recalled from ER Triage Doc. by RN): States that he has been feeling bad for a couple of days. Complaint of weakness, cough and congestion. Also states he was recently put on a new bp medication. Reports falling out of bed approx 10am and upon EMS arrival he was flaccid on the left side. Patient is alert and oriented and moving all extremities. History of Present Illness HPI narrative: This patient is a 69-year-old male with a history of opioid abuse, CKD, head and neck cancer, hypertension, hyperlipidemia, hypothyroidism, and GERD presenting to the emergency department for evaluation as a stroke alert. According to EMS, they were called to the home because the patient had fallen out of bed and was on the floor. They noted flaccid paralysis on the left side on their arrival with hypotension and a GCS of 10. They noted his initial blood pressure had a systolic of 70 and his initial O2 saturation on room air was in the 60s. They expressed concern that he was not protecting his airway and was hypoxic, so they placed a nasopharyngeal airway and put the patient on CPAP, as he also noted that he sounded like he was very wet. They note that he had been sick for several days with weakness, so they presume last known well was several days ago, but it is unclear at this time. Patient arrives alert and oriented x 4. His flaccid paralysis on the left side has improved upon arrival and he has no focal neurologic deficits on exam, though he is generally weak. He is still hypotensive and hypoxic requiring supplemental oxygenation. Patient states that he is been sick for a few days with fevers, cough, shortness of breath, back pain, nausea, and vomiting. He states that he tried to get out of bed this morning and fell because he was too weak to walk. He was unable to get up after falling. He denies any visual disturbance, headache, or other focal neurologic symptoms, only stating that he felt weak overall. Related Data Home Medications ?Medication ?Instructions ?Recorded ?Confirmed promethazine 25 mg tablet 25 mg PO Q6HP PRN nausea and 03/24/24 10/17/24 vomiting Previous Rx's ?Medication ?Instructions ?Recorded blood pressure monitor (Blood #1 ea 12/22/22 Pressure Kit) atorvastatin 40 mg tablet 40 mg PO HS #90 tabs 11/17/23 amlodipine 5 mg tablet 5 mg PO DAILY #90 tabs 03/02/24 oxybutynin chloride 10 mg 10 mg PO DAILY #90 tabs 04/09/24 tablet,extended release 24 hr tamsulosin 0.4 mg capsule (Flomax) 0.4 mg PO DAILY #30 caps 04/09/24 bisoprolol fumarate 5 mg tablet 5 mg PO PM #30 tabs 04/10/24 tizanidine 4 mg tablet 4 mg PO TIDP PRN Muscle Spasm 90 04/12/24 days #270 tabs levothyroxine 125 mcg tablet 125 mcg PO DAILY 90 days #90 tabs 06/11/24 montelukast 10 mg tablet 10 mg PO PM #90 tabs 06/21/24 albuterol sulfate 90 mcg/actuation 2 puff inhalation Q4-6H PRN 10/17/24 aerosol inhaler shortness of breath or wheezing #8.5 grams triamcinolone acetonide 0.1 % 1 applic topical TID PRN rash 10/17/24 topical cream #453.6 grams duloxetine 30 mg capsule,delayed 30 mg PO DAILY 90 days #90 caps 11/06/24 release pantoprazole 40 mg tablet,delayed 40 mg PO BID #180 tabs 11/06/24 release valsartan 80 mg tablet 80 mg PO DAILY #90 tabs 11/06/24 Allergies Allergy/AdvReac Type Severity Reaction Status Date / Time Penicillins (PENICILLINS) Allergy Intermediate Rash/hives Verified 10/17/24 13:12 [facility] Disclaimer: The information contained in this section may have been updated after the patient was seen, as this information can be updated by other users. 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 History of 2019 novel coronavirus disease (COVID-19) Encounter for screening for malignant neoplasm of lung in current smoker with 30 pack year history or greater Smoking greater than 30 pack years Allergic rhinitis Overactive bladder Pneumonia History of COVID-19 Sexual dysfunction Arthritis Diverticulitis History of gastroesophageal reflux (GERD) Hypothyroid Allergies Hypertension Hyperlipidemia Bakers cyst Fracture of toe CKD (chronic kidney disease) stage 3, GFR 30-59 ml/min Squamous cell carcinoma Drug overdose Acute right flank pain Surgical History History of esophagogastroduodenoscopy (EGD) H/O colonoscopy S/P skin cancer resection History of total knee arthroplasty Family History Mother Breast cancer Father Lung cancer Family history of hypertension Grandfather Colon cancer Family history of hypertension Social History Smoking Status: Former smoker tobacco type: cigarettes packs per day: 1 years smoked: 1 second hand exposure: Yes alcohol intake: never substance use type: marijuana current occupational status: disabled Travel in the last 8 weeks: None household members: significant other housing: house current occupational exposures/hazards: No caffeine: Yes Have you lived/traveled outside [place] in past 30 days?: No Contact w/someone who lives/traveled outside US past 30 days?: No Exposure to someone with infectious disease in past 14 days?: No Do you have a fever (greater than 100.4 F or 38 C)?: No Have you tested positive for COVID-19: No Exposed to someone with COVID-19 in past 14 days?: No Do you have a sore throat?: No Do you have a cough?: No Do you have any weakness?: No Do you have any diarrhea?: No Are you experiencing any unusual bleeding?: No Do you have any muscle aches/pain?: No Do you have any abdominal pain?: No Are you experiencing loss of taste or smell?: No Other Medical History Have you received the Flu Vaccine for this season: No Have you received the Pneumonia Vaccine: No ROS Obtained: Yes All systems reviewed & no additional complaints except as documented Physical Exam General General appearance: alert, in distress and obese Comment: Ill-appearing Head Head exam: atraumatic and normocephalic Eye Eye exam: Present normal appearance, PERRL and EOMI ENT ENT exam: Present normal exam, normal oropharynx, mucous membranes dry and normal external ear exam Neck Neck exam: Present normal inspection, full ROM and trachea midline; Absent tenderness Chest Chest inspection: Present normal inspection and symmetric chest wall rise; Absent tenderness Respiratory Respiratory exam: Present respiratory distress, accessory muscle use and other (Bilateral crackles and rales) Cardiovascular Cardiovascular exam: Present regular rate and normal rhythm Abdominal Exam Abdominal exam: Present distention; Absent tenderness, guarding or rebound Extremities Exam Extremities exam: Present normal inspection, full ROM and normal capillary refill; Absent tenderness or edema Back Exam Back exam: Present normal inspection and full ROM; Absent tenderness Neurological Exam Neurological exam: Present alert, oriented X3, CN II-XII intact and other (Generally weak without focal deficit); Absent motor sensory deficit Skin Skin exam: Present warm and dry Medical Decision Making Medical Records Medical records reviewed: Yes I reviewed the patient's medical records. Screening: Per USPSTF and CDC recommendations, given the prevalence of disease in our region, it is our hospital?s policy to screen for HIV and viral Hepatitis for all patients aged 18 and over and those with ongoing risk factors. [place] Inquiry Pt receiving controlled substance: No Vital Signs: 11/12/24 12:41 11/12/24 12:45 11/12/24 12:46 Temperature 98.2 F Temperature Source Temporal Artery Scan Pulse Rate Pulse Rate [Radial] 77 Respiratory Rate 20 Blood Pressure 84/51 L 76/38 L Blood Pressure [Right Arm] 80/49 L Blood Pressure Mean 65 50 Blood Pressure Mean [Right Arm] 59 Blood Pressure Source [Right Arm] Automatic Cuff Blood Pressure Position [Right Arm] Supine 02 Sat by Pulse Oximetry 94 L Oxygen Delivery Method Nasal Cannula Oxygen Flow Rate (LPM) 6 11/12/24 12:50 11/12/24 12:54 11/12/24 12:58 Temperature Temperature Source Pulse Rate Pulse Rate [Radial] Respiratory Rate Blood Pressure 74/41 L 71/41 L 105/56 L Blood Pressure [Right Arm] Blood Pressure Mean 46 46 72 Blood Pressure Mean [Right Arm] Blood Pressure Source [Right Arm] Blood Pressure Position [Right Arm] 02 Sat by Pulse Oximetry Oxygen Delivery Method Oxygen Flow Rate (LPM) 11/12/24 13:01 11/12/24 13:05 11/12/24 13:30 Temperature Temperature Source Pulse Rate Pulse Rate [Radial] Respiratory Rate Blood Pressure 131/66 112/56 L 108/55 L Blood Pressure [Right Arm] Blood Pressure Mean 74 74 69 Blood Pressure Mean [Right Arm] Blood Pressure Source [Right Arm] Blood Pressure Position [Right Arm] 02 Sat by Pulse Oximetry Oxygen Delivery Method Oxygen Flow Rate (LPM) 11/12/24 13:35 11/12/24 13:41 11/12/24 13:45 Temperature Temperature Source Pulse Rate Pulse Rate [Radial] Respiratory Rate Blood Pressure 98/61 L 136/67 97/60 L Blood Pressure [Right Arm] Blood Pressure Mean 70 87 72 Blood Pressure Mean [Right Arm] Blood Pressure Source [Right Arm] Blood Pressure Position [Right Arm] 02 Sat by Pulse Oximetry Oxygen Delivery Method Oxygen Flow Rate (LPM) 11/12/24 13:51 11/12/24 13:55 11/12/24 14:00 Temperature Temperature Source Pulse Rate 64 Pulse Rate [Radial] Respiratory Rate 11 L Blood Pressure 92/39 L 80/49 L 95/52 L Blood Pressure [Right Arm] Blood Pressure Mean 65 57 61 Blood Pressure Mean [Right Arm] Blood Pressure Source [Right Arm] Blood Pressure Position [Right Arm] 02 Sat by Pulse Oximetry 92 L Oxygen Delivery Method Oxygen Flow Rate (LPM) 11/12/24 14:05 11/12/24 14:08 11/12/24 14:10 Temperature Temperature Source Pulse Rate 64 67 72 Pulse Rate [Radial] Respiratory Rate 10 L 11 L 11 L Blood Pressure 87/53 L 91/51 L 92/55 L Blood Pressure [Right Arm] Blood Pressure Mean 68 70 66 Blood Pressure Mean [Right Arm] Blood Pressure Source [Right Arm] Blood Pressure Position [Right Arm] 02 Sat by Pulse Oximetry 93 L 94 L 91 L Oxygen Delivery Method Oxygen Flow Rate (LPM) 11/12/24 14:22 11/12/24 14:25 11/12/24 14:30 Temperature Temperature Source Pulse Rate Pulse Rate [Radial] Respiratory Rate Blood Pressure 91/59 L 98/60 L 110/52 L Blood Pressure [Right Arm] Blood Pressure Mean 70 71 78 Blood Pressure Mean [Right Arm] Blood Pressure Source [Right Arm] Blood Pressure Position [Right Arm] 02 Sat by Pulse Oximetry Oxygen Delivery Method Oxygen Flow Rate (LPM) 11/12/24 14:35 11/12/24 14:36 11/12/24 14:40 Temperature Temperature Source Pulse Rate Pulse Rate [Radial] Respiratory Rate Blood Pressure 87/48 L 95/54 L 101/53 L Blood Pressure [Right Arm] Blood Pressure Mean 68 60 70 Blood Pressure Mean [Right Arm] Blood Pressure Source [Right Arm] Blood Pressure Position [Right Arm] 02 Sat by Pulse Oximetry Oxygen Delivery Method Oxygen Flow Rate (LPM) 11/12/24 14:45 11/12/24 14:50 Temperature Temperature Source Pulse Rate Pulse Rate [Radial] Respiratory Rate Blood Pressure 96/48 L 101/56 L Blood Pressure [Right Arm] Blood Pressure Mean 64 63 Blood Pressure Mean [Right Arm] Blood Pressure Source [Right Arm] Blood Pressure Position [Right Arm] 02 Sat by Pulse Oximetry Oxygen Delivery Method Oxygen Flow Rate (LPM) Lab Data Lab results reviewed: Yes I reviewed the patient's lab results. Lab Results 11/12/24 12:40: WBC 10.1, RBC 3.39 L, Hgb 10.7 L, Hct 32.4 L, MCV 95.6 H, MCH 31.6 H, MCHC 33.0, RDW 13.9, Plt Count 172, MPV 11.8 H, Neut % (Auto) 81.8 H, L ymph % (Auto) 5.0 L, Todd % (Auto) 12.2 H, Eos % (Auto) 0.3, Baso % (Auto) 0.3, Neut # (Auto) 8.3 H, Lymph # (Auto) 0.5 L, Todd # (Auto) 1.2 H, Eos # (Auto) 0.0, Baso # (Auto) 0.0, Total Counted 100, Neutrophils % (Manual) 79 H, Band Neutrophils % 5.0, Lymphocytes % (Manual) 10, Monocytes % (Manual) 6, Platelet Estimate Normal, RBC Morphology Normal, PT 10.1, INR 0.89 L, APTT 31.0 H, VBG pH 7.17 L, VBG pCO2 48.6, VBG pO2 90.7 H, VBG HCO3 17.2 L, VBG Total CO2 18.7 L, V BG O2 Saturation 96.1 H, VBG Base Excess -11.4 L, VBG Lactic Acid 2.4 H, Sodium 131 L, Potassium 4.8, Chloride 100, Carbon Dioxide 17 L, Anion Gap 18.8 H, BUN 68 H, Creatinine 9.20 H, Estimated Creat Clear 13, Estimated GFR 6 L*, Est GFR ( Amer) 7 L*, Glucose 102 H, Calcium 8.2 L, Phosphorus 9.9 H, Magnesium 2.2, Total Bilirubin 1.1, AST 33, ALT 14, Alkaline Phosphatase 67, Total Creatine Kinase 556 H*, Troponin I < 0.01, C-Reactive Protein 56.9 H, NT-Pro-B Natriuret Pep 439 H, Total Protein 6.9, Albumin 4.1, Globulin 2.8, Albumin/Globulin Ratio 1.5, Triglycerides 125, Cholesterol 155, LDL Cholesterol Direct 70.88 L, VLDL Cholesterol 25, HDL Cholesterol 38 L, Cholesterol/HDL Ratio 4.1 H, Lipase 55, Procalcitonin 1.22, TSH 3.78, Thyroxine (T4) 5.6, Salicylates < 1.0 L, Acetaminophen < 10 L, Plasma/Serum Alcohol < 10 11/12/24 13:06: Urine Color Dark yellow, Urine Appearance Slightly cloudy, Urine pH 5.0, Ur Specific [place] >= 1.030, Urine Protein 1+ A, Urine Glucose (UA) Negative, Urine Ketones Trace, Urine Blood Negative, Urine Nitrate Negative, Urine Bilirubin Negative, Urine Urobilinogen 0.2, Ur Leukocyte Esterase Negative, Urine RBC None, Urine WBC 10-20, Ur Squamous Epith Cells 3-5, Urine Bacteria Trace, Urine Opiates Screen Positive H, Urine Methadone Screen Negative, Ur Barbituates Screen Negative, Ur Phencyclidine Scrn Negative, Ur Amphetamines Screen Negative, U Benzodiazepines Scrn Negative, Urine Cocaine Screen Negative, U Marijuana (THC) Screen Negative 11/12/24 12:40 11/12/24 12:40 Orders (Tests/Meds): ED MEDICATIONS Generic Name Dose Route Start Last Admin Trade Name Freq PRN Reason Stop Dose Admin Norepinephrine/Dextrose 8 mg in 250 mls @ 3.75 mls/hr 11/12/24 12:46 11/12/24 13:11 Levophed 8mg/250ml-D5w Premix IV 12/12/24 12:45 10 mcg/min .Q24H AMY 18.75 mls/hr Infusion Protocol 2 MCG/MIN Sodium Chloride 10 ml 11/12/24 12:41 Sodium Chloride 0.9% 10ml Flush Syringe IV 12/12/24 12:40 NEEDED PRN Maintain IV Site Sodium Chloride 3 ml 11/12/24 14:27 Sodium Chloride 3% 15ml Neb IH 12/12/24 14:26 ONCE PRN INDUCE SPUTUM COLLECTION Discontinued Medications Generic Name Dose Route Start Last Admin Trade Name Freq PRN Reason Stop Dose Admin Calcium Gluconate/Sodium Chloride 2 gm in 100 mls @ 50 mls/hr 11/12/24 13:21 11/12/24 13:30 Calcium Gluconate 2,000mg/100ml Nacl Premix IV 11/12/24 15:20 50 mls/hr ONCE ONE Administration Cefepime HCl 2 gm/ Sodium 100 mls @ 200 mls/hr 11/12/24 13:27 11/12/24 14:31 Chloride IV 11/12/24 13:56 200 mls/hr ONCE ONE Administration Vancomycin/PEG/NADA/Lysine/Water 1.75 gm in 350 mls @ 175 mls/hr 11/12/24 13:30 Vancomycin 1.75gm/350ml (Peg) Premix IV 11/12/24 15:29 ONCE ONE Azithromycin 500 mg/ Sodium 250 mls @ 250 mls/hr 11/12/24 14:28 11/12/24 15:21 Chloride IV 11/12/24 14:29 250 mls/hr ONCE ONE Administration Miscellaneous 1 each 11/12/24 13:30 Vancomycin Consult Request NOTAPPLIC 12/12/24 13:29 CONSULT PHARMACY AMY ORDERS Category Date Time Status CT abdomen pelvis wo con Stat Cat Scan 11/12/24 12:[address] cervical spine wo con Stat Cat Scan 11/12/24 12:[address] chest wo con Stat Cat Scan 11/12/24 12:[address] head/brain wo con Stat Cat Scan 11/12/24 12:[address] lumbar spine wo con Stat Cat Scan 11/12/24 12:[address] thoracic spine wo con Stat Cat Scan 11/12/24 12:42 Completed POCUS Point of Care (ER Only) Stat Exams 11/12/24 13:28 Completed Acetaminophen Stat Lab 11/12/24 12:40 Completed Activated Partial Thrombo Time Stat Lab 11/12/24 12:40 Completed BNP [NT Pro Brain Natriuretic Pep.] Stat Lab 11/12/24 12:40 Completed CK [Creatine Kinase] Stat Lab 11/12/24 12:40 Completed CRP [C-Reactive Protein] Stat Lab 11/12/24 12:40 Completed Complete Blood Count Auto Diff Stat Lab 11/12/24 12:40 Completed Comprehensive Metabolic Panel Stat Lab 11/12/24 12:40 Completed Drug Screen,Urine Stat Lab 11/12/24 13:06 Completed Ethyl Alcohol Stat Lab 11/12/24 12:40 Completed Lipase Stat Lab 11/12/24 12:40 Completed Lipid Panel Stat Lab 11/12/24 12:40 Completed MAG [Magnesium] Stat Lab 11/12/24 12:40 Completed PHOS [Phosphorous] Stat Lab 11/12/24 12:40 Completed Procalcitonin Stat Lab 11/12/24 12:40 Completed Prothrombin Time INR Stat Lab 11/12/24 12:40 Completed Salicylate Stat Lab 11/12/24 12:40 Completed T4 (Thyroxine) Stat Lab 11/12/24 12:40 Completed TSH [Thyroid Stimulating Hormone] Stat Lab 11/12/24 12:40 Completed Troponin I Q3H Lab 11/12/24 15:45 Ordered Troponin I Q3H Lab 11/12/24 18:45 Ordered Troponin I Stat Lab 11/12/24 12:40 Completed Urinalysis and Microscopic Stat Lab 11/12/24 13:06 Completed Blood Culture Stat Micro 11/12/24 14:20 Received Sputum Culture & Gram Stain Stat Micro 11/12/24 14:27 Ordered Urine Culture Stat Micro 11/12/24 13:06 Received VBG [Venous Blood Gas] Stat RT 11/12/24 12:40 Completed ECG Data Tracing #1: I reviewed this ECG and interpreted as documented below: Normal sinus rhythm with a ventricular to 65 bpm. Intraventricular conduction delay without acute STEMI. No significant changes from prior EKG. ECG initial impression date: 11/12/24 ECG initial impression time: 12:52 Medical Decision Narrative: In summary, this patient is a 69-year-old presenting to the Emergency Department for evaluation of possible stroke with initial left-sided flaccid paralysis, hypotension, hypoxia, general weakness. He has a multitude of complaints including fevers, cough, shortness of breath, abdominal discomfort, nausea, vomiting, and back pain. He has been ill for several days. He initially arrived as a stroke alert given the left-sided flaccid paralysis, however this had resolved upon arrival. Differential diagnoses considered include but are not limited to sepsis, septic shock, acute renal failure, cardiorenal syndrome, cardiogenic shock, CVA, TIA, intracranial hemorrhage, spinal abscess. Ruling out the most morbid conditions drove assessment. It should be noted patient's history includes opioid abuse, tobacco abuse, hypertension, hyperlipidemia, hypothyroidism, obesity which likely are not at goal therapy. This complicates all aspects of care by increasing patient's risk for morbidity. Patient denies any history of IV opioid/drug abuse, however. I reviewed patient's past medical records and noted prior evaluation by primary care provider 10/17/2024 to establish care, at which point patient was prescribed Breztri inhaler for some chronic respiratory difficulties On exam, the patient is lying in bed in distress with a nasopharyngeal airway in place, bilateral crackles and rales noted. He is hypotensive and hypoxic requiring supplemental oxygen. Patient had already received almost full liter bolus of IV fluids with EMS. Initial management included a pressure bag bolus of IV fluids and again to see if the patient is fluid responsive. Total IV fluids received equals 2 L. Nasopharyngeal airway was removed, as he is currently alert and oriented and protecting his airway. Supplemental oxygenation with nasal cannula continued. Blood pressure did not improve with fluids, so he was then initiated on Levophed to maintain a MAP greater than 65. Patient initially arrived as a stroke alert, but his left-sided paralysis that EMS had noted have resolved prior to arrival. He has no focal neurologic deficits but is generally weak overall. It appears his symptoms improved with improvement in his blood pressure and oxygenation. Workup included broad lab evaluation to evaluate for infectious, metabolic, cardiac derangements. EKG obtained without STEMI, fingerstick blood glucose normal. Patient was also taken for CT head, CT spines, and CT chest abdomen and pelvis. I had initially ordered angiograms with IV contrast, however preliminary labs did come back once patient was finally stabilized for scanner and demonstrated a significant ALONZO with a creatinine greater than 9. This is up from his baseline of 1.5 which was obtained at the beginning of October. Given this, I feel the risk of IV contrast would outweigh the benefit at this time, as patient is not currently on dialysis. Noncontrasted studies were ordered. I independently interpreted CT scans prior to the radiologist read and noted no intracranial hemorrhage or space-occupying lesion, no spine fractures but he does have osteophytes and degenerative change, he does have bilateral pneumonia on the CT of his chest, he has a large left renal cyst on CT of his abdomen. Please see their read for final interpretation. Labs were obtained that demonstrated significant ALONZO with a GFR of 6 and creatinine greater than 9. His last creatinine was 1.5 at the beginning of October. CBC demonstrates mild anemia with a hemoglobin of 10.7. He has significant mixed acidosis with a pH of 7.1, bicarb of 17, PCO2 of 48.6.. He has hyponatremia with a sodium of 131. He has hypocalcemia, for which IV replacement was ordered. Urine demonstrates 1+ protein and 10-20 white blood cells but there is no leukocyte esterase or nitrates that would suggest significant infection. On multiple subsequent reassessments, the patient had significant improvement after administration of fluids, calcium replacement, broad-spectrum antibiotics including vancomycin, cefepime, and azithromycin to cover for pneumonia. I did a bedside cardiac ultrasound which demonstrated some apical hypokinesis but he does have good squeeze. He does not have any right heart strain or pericardial effusion within the limited assessment. His IVC does not collapse with inspiration, so I am holding on further IV fluids for now. He is still requiring Levophed to maintain a MAP greater than 65. I feel patient would benefit from transfer to higher level of care with nephrology because he has high likelihood of needing dialysis given his significant ALONZO and metabolic acidosis. Initially, I spoke with Dr. Harrington at [facility] given they are closest to us; he advised he recommends transfer to higher level of care for CRRT given he is on pressors and has ALONZO with acidosis, as they cannot do CRRT there. I then initiated discussions with transfer center. I spoke with Dr. Zamora who accepted the patient for transfer to ICU. Patient was transferred in stable condition. Procedures Limited Ultrasound Findings:: Limited cardiac ultrasound Indication: Shortness of breath, respiratory failure Identified cardiac views: [-Cardiac parasternal long axis] [-Cardiac parasternal short axis] [-Cardiac apical four-chamber] [-Cardiac subxiphoid] Findings: [-Cardiac activity present -Gross wall motion abnormal - apical hypokinesis -Pericardial effusion absent -Right heart strain absent] Impression: -[From above] Images were to permanent archive The study was technically adequate CPT: 92367 This study was performed by me, and I personally interpreted all images/videos. Based on my clinical judgement, these images were adequate and did not necessitate further imaging. Critical Care Critical Care Time Critical Care Time: Yes Attestation: On 11/12/24, the high probability of a clinically significant, sudden or life threatening deterioration of the following system(s) required my full and direct attention, intervention and personal management. The time I documented below is in addition to time spent performing reported procedures but includes the following listed in this critical care notation. Total Time Total Critical Care Time: 75
--- NOTE | 2024-11-12 12:52 | PC.NURSE ---
1252 LEVOPHED STARTED AT THIS TIME
[2024-11-12 12:53] LABS: Calcium 8.2 mg/dl (8.4-10.2); Chol/HDL Ratio 4.1 (1-3.5); Cholesterol 155 mg/dl (140-200); Glucose 102 mg/dl (74-100); HDL Cholesterol 38 mg/dl (40-60); Lactate Venous 2.4 mmol/L (0.4-2.0); VBG PH 7.17 mmol/L (7.31-7.41)
[2024-11-12] MEDS: NOREPINEPHRINE BITARTRATE/D5W 8 MG/250 ML PLAST..BAG 15 MG IV (12:54)
--- NOTE | 2024-11-12 12:54 | PC.NURSE ---
1232 stroke alert called 1234 FS 115 1235 RR 20 P 77 BP 80/49 O2 94% 6l/min 1237 P 71 O2 98% 6 l/min RR 14 BP 78/42 manual
--- NOTE | 2024-11-12 12:54 | PC.NURSE ---
Per Tech Salazar Patients creatin is 9.2
[2024-11-12 12:55] LABS: INR 0.89 (0.9-1.1); Prothrombin Time 10.1 seconds (10.1-12.5)
--- NOTE | 2024-11-12 12:58 | CT_ITS ---
FINAL REPORT TECHNIQUE: Axial images through the abdomen and pelvis were performed without contrast. This study was performed with techniques to keep radiation doses as low as reasonably achievable, (ALARA). Individualized dose reduction techniques using automated exposure control or adjustment of mA and/or kV according to the patient's size were employed. CLINICAL HISTORY: AMS, h/o IVDU, n/v, shock, resp failure COMPARISON: 07/26/2023 FINDINGS: Abdomen: The liver parenchyma is homogeneous. Multiple gallstones are seen in the dependent portion of the gallbladder. The spleen, pancreas, and adrenal glands are unremarkable. There is a dominant cyst arising from the anterior aspect of the left kidney measuring 10.6 x 8.8 cm. Multiple smaller cysts are seen bilaterally. Pelvis: There is streak artifact from orthopedic hardware in the right acetabulum. The appendix is not definitely visualized. There is a Perry catheter in the decompressed urinary bladder. Scattered sigmoid diverticula are noted. There is a small fat-containing umbilical hernia. There is no free fluid or adenopathy. IMPRESSION: Gallstones Bilateral renal cysts measuring up to 10.6 cm on the left. Reviewed, Interpreted and Dictated by Rayray Martínez MD Transcribed by Yuly Tiwari Authenticated and [facility]
--- NOTE | 2024-11-12 12:58 | CT_ITS ---
FINAL REPORT TECHNIQUE: Axial images were obtained through the chest without contrast. This study was performed with techniques to keep radiation doses as low as reasonably achievable (ALARA). Individualized dose reduction techniques using automated exposure control or adjustment of mA and/or kV according to the patient's size were employed. CLINICAL HISTORY: AMS, h/o IVDU, n/v, shock, resp failure FINDINGS: The heart size is normal. The ascending aorta measures up to 4.2 cm in diameter. There is no pericardial or pleural effusion. There are dense patchy bilateral airspace infiltrates, particularly in the posterior right upper lobe and both lower lobes. Findings are compatible with acute pneumonia. IMPRESSION: Bilateral pneumonia. Reviewed, Interpreted and Dictated by Rayray Martínez MD Transcribed by Yuly Tiwari Authenticated and [facility]
--- NOTE | 2024-11-12 13:03 | PC.NURSE ---
family at bedside, updated on poc
[2024-11-12 13:04] LABS: Direct LDL Cholesterol 70.88 mg/dL (100-129)
[2024-11-12 13:08] LABS: NT Pro Brain Natriuretic Pep. 439 pg/mL (0-125)
[2024-11-12 13:09] LABS: Ethyl Alcohol < 10 mg/dl (0-10)
[2024-11-12 13:10] LABS: Troponin I < 0.01 ng/ml (0.00-0.034)
--- NOTE | 2024-11-12 13:10 | PC.NURSE ---
PT TO CT
[2024-11-12 13:11] LABS: Microscopic, Urine URINE MICROSCOPIC (MICROSCOPIC)
[2024-11-12 13:12] LABS: T4 (Thyroxine) 5.6 ug/dl (5.53-11.0)
--- NOTE | 2024-11-12 13:12 | PC.NURSE ---
Levophed titrated down to 10mcg/min.
[2024-11-12 13:26] LABS: Thyroid Stimulating Hormone 3.78 uIU/mL (0.465-4.68)
[2024-11-12 13:29] LABS: Blood, Urine Negative (Negative); Glucose,Urine (UA) Negative (Negative); Ketones,Urine TRACE (Negative); Leukocyte Esterase,Urine Negative (Negative); Nitrate,Urine Negative (Negative); Protein,Urine 1+ (Negative); Specific Gravity, Urine >= 1.030 (1.005-1.030); Urobilinogen,Urine 0.2 EU/dl (0.2)
[2024-11-12] MEDS: CALCIUM GLUC IN NACL, ISO-OSM 2 GM/100 ML BAG IV (13:30)
[2024-11-12 13:40] LABS: Barbiturates Screen,Urine Negative ng/ml (<200)
[2024-11-12 13:41] LABS: Creatine Kinase 556 U/L (55-170); Magnesium 2.2 mg/dl (1.6-2.3); Phosphorous 9.9 mg/dl (2.5-4.5)
[2024-11-12 13:41] LABS: Amphetamine/Metha Screen,Urine Negative ng/ml (<1000); Benzodiazepines Screen,Urine Negative ng/ml (<200)
[2024-11-12 13:42] LABS: Cannabinoid Screen,Urine Negative ng/ml (<50); Cocaine Screen,Urine Negative ng/ml (<300)
[2024-11-12 13:43] LABS: Methadone Screen,Urine Negative ng/ml (<300)
[2024-11-12 13:44] LABS: Opiate Screen,Urine Positive ng/ml (<300); Phencyclidine Screen,Urine Negative ng/ml (<25)
[2024-11-12 13:45] LABS: Lymphocytes % 10 % (10-50); Monocytes % 6 % (2-9); Neutrophils % 79 % (42-76); Platelet Estimate Normal; RBC Morphology Normal; Total Cells Counted 100
[2024-11-12 13:47] LABS: C-Reactive Protein 56.9 mg/L (0-4)
[2024-11-12 13:52] LABS: Color,Urine Dark Yellow (Yellow)
[2024-11-12 13:53] LABS: Appearance,Urine Slightly Cloudy (Clear); Bilirubin,Urine Negative (Negative)
--- NOTE | 2024-11-12 14:03 | PC.NURSE ---
RESPIRATORY NOTIFIED OF C-PAP ORDER
[2024-11-12 14:12] LABS: Procalcitonin 1.22 ng/mL (0.0-2.0)
[2024-11-12 14:17] LABS: Bacteria,Urine Trace /lpf
[2024-11-12 14:28] LABS: Lipase 55 U/L (23-300)
--- NOTE | 2024-11-12 14:30 | PC.NURSE ---
RESP CARE NOTE: Placed pt on CPAP of 8 cmH2O and FIO2 of 50%. Dr Hernandez informed that Vt averaging 1800 ml each breath. CPAP removed and pt placed back on 6 lpm nc.
[2024-11-12] MEDS: CEFEPIME HCL 2 GM in 0.9 % SODIUM CHLORIDE 100 ML IV (14:31)
--- NOTE | 2024-11-12 14:36 | PC.NURSE ---
Called [facility] for Dr Hernandez to see about getting this patient transferred to [place] for nephrology services. patient has acute renal faulire,sepsis, pneumonia, creatine is greater than 9. [facility] will make contact with [place] and call back
[2024-11-12 14:50] LABS: Acetaminophen < 10 ug/ml (10-30); Salicylate < 1.0 mg/dL (2.0-20.0)
--- NOTE | 2024-11-12 14:52 | PC.NURSE ---
Dr molina [place] on the phone with Dr. aguilar
--- NOTE | 2024-11-12 15:08 | PC.NURSE ---
Called [facility] For Dr. Noni aguilar about getting patient transferred for Acute Renal Failure, sepsis, Pneumonia, Creatine greater than 9. [facility] advised they will call back
[2024-11-12] MEDS: AZITHROMYCIN 500 MG in 0.9 % SODIUM CHLORIDE 250 ML 250 MG IV (15:21)
--- NOTE | 2024-11-12 15:31 | PC.NURSE ---
[facility] accepted will call with a room number.
--- NOTE | 2024-11-12 15:35 | PC.NURSE ---
called back and is speaking with Dr Hernandez and they were accepted to the ICU and would call back for a bed
[2024-11-12 16:17] LABS: Troponin I < 0.01 ng/ml (0.00-0.034)
--- NOTE | 2024-11-12 16:19 | PC.NURSE ---
Report called to MALISSA Contreras at ICU. [facility] notified of transfer.
--- NOTE | 2024-11-12 16:32 | PC.NURSE ---
Levophed increased to 12mcg/min.
[2024-11-12] MEDS: VANCOMYCIN/WATER FOR INJ (PEG) 1.75 GM/350 ML PIGGYBACK IV (16:34)
--- NOTE | 2024-11-12 16:40 | PC.NURSE ---
Levophed increased to 15mcg/min.
[2024-11-12 16:52] LABS: Reflex Lactic Add Lactic Reflex
== END 2024-11-12 17:14 | disposition short-term general hospital (02) ==
PROVIDERS: Emergency Provider Emergency Medicine
DX: A41.89 Other specified sepsis (principal); R65.21 Severe sepsis with septic shock; J96.01 Acute respiratory failure with hypoxia; J18.9 Pneumonia, unspecified organism; M62.82 Rhabdomyolysis; E87.21 Acute metabolic acidosis; E87.1 Hypo-osmolality and hyponatremia; E83.51 Hypocalcemia; N28.1 Cyst of kidney, acquired; N17.9 Acute kidney failure, unspecified; R29.818 Other symptoms and signs involving the nervous system; W06.XXXA Fall from bed, initial encounter
CPT/HCPCS: 70450; 71250; 72125; 72128; 72131; 74176; 80053; 80061; 80307; 80320; 80329; 81001; 82550; 82803; 83690; 83735; 83880; 84100; 84145; 84436; 84443; 84484; 85007; 85025; 85027; 85610; 85730; 86140; 87040; 87086; 93005; 96365; 96366; 96367; 96375; 99291; J0456; J3372; J7050

== ENCOUNTER 2024-12-05 13:55 | Outpatient (POV) | payer MEDICARE, SELFPAY ==
--- NOTE | 2024-12-05 15:01 | EXP.PAIN.OV ---
HPI Data of Consult Patient: new to practice Consult date: 12/05/24 Requesting Physician: Noni Mckeon APRN Primary Care Provider: Yovany Walsh MD Reason for consult: Chronic neck pain History of present illness: Mr. Atkinson is a 69 year old male who presents today as a new patient. He is a referral from Dr. Walsh's office. Today he rates his pain a 6 out of 10. Patient states he has had chronic neck pain for roughly 19 years. Patient does state initially this was related to a surgery to remove cancer in his neck. He states he ended up having chemo and radiation after and has continued to have limited range of motion and pain in his neck since. Patient states that this is a constant sensation and that primarily it stays there in his neck. He describes it as a constant pressure like a vice fittings tightener is being squeezed. He does state the pain interferes with his ability to perform activities of daily living such as cooking and cleaning. Patient has tried oral medication, heat and ice and topicals with minimal relief. Patient does state that he had physical therapy initially after his surgery and that it seemed to help however over time it has just progressively worsened. Patient does state that he will on rare occasions have some numbness into his hands however feels like this is unrelated to the neck. Patient has had injections in the past at however he felt like this aggravated his symptoms and has caused issues with swallowing. Patient denies any recent imaging. Patient does have a significant history with a ruptured ulcer and states he is not allowed to have any NSAIDs. He also makes mention that he has been told to avoid aspirin or Tylenol products. Patient does state that he was getting oxycodone from his previous primary care. Patient does state that currently he is taking tizanidine that does seem to help with his hip. Patient did previously have a metal niranjan placed and has also had knee surgery. He denies any other issues currently. His Willard has been reviewed and is appropriate. Pain at rest (0-10 scale): 6 Has patient had previous pain injection?: No Conservative treatment options previously tried: Home exercise plan (Longer than 12 weeks) cc:: CC: Noni Mckeon APRN [facility] Disclaimer: The information contained in this section may have been updated after the patient was seen, as this information can be updated by other users. Medical History History of colon polyps Visualization difficulties noted on multiple colonoscopies. 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 History of 2019 novel coronavirus disease (COVID-19) Encounter for screening for malignant neoplasm of lung in current smoker with 30 pack year history or greater Smoking greater than 30 pack years Allergic rhinitis Overactive bladder Pneumonia History of COVID-19 Sexual dysfunction Arthritis Diverticulitis History of gastroesophageal reflux (GERD) Hypothyroid Allergies Hypertension Hyperlipidemia Bakers cyst Fracture of toe CKD (chronic kidney disease) stage 3, GFR 30-59 ml/min Squamous cell carcinoma Drug overdose Acute right flank pain Surgical History History of esophagogastroduodenoscopy (EGD) H/O colonoscopy S/P skin cancer resection History of total knee arthroplasty Family History Mother Breast cancer Father Lung cancer Family history of hypertension Grandfather Colon cancer Family history of hypertension Social History Smoking Status: Former smoker tobacco type: cigarettes packs per day: 1 years smoked: 1 second hand exposure: Yes alcohol intake: never substance use type: marijuana current occupational status: disabled Travel in the last 8 weeks?: None household members: significant other housing: house current occupational exposures/hazards: No caffeine: Yes Review of Systems Review of Systems Review of systems:: pertinent systems reviewed and negative unless documented below Review of systems (narrative): Review of Systems: General: No recent weight changes, no fever, no sleep disturbances Respiratory: No cough, no shortness of air, no recurring pulmonary infections Cardiovascular/peripheral vascular: No chest pain, no palpitations, no edema, no shortness of breath Gastrointestinal: No new onset incontinence, normal bowel movements reported Genitourinary: No new onset incontinence Musculoskeletal: Chronic neck pain Psychiatric: [Normal mood/affect] Neurological: [Denies weakness in extremities], [denies balance issues] Meds Home Medications and Allergies Home Medications ?Medication ?Instructions ?Recorded ?Confirmed ?Type blood pressure monitor (Blood #1 ea 12/22/22 11/19/24 Rx Pressure Kit) atorvastatin 40 mg tablet 40 mg PO HS #90 tabs 11/17/23 11/19/24 Rx promethazine 25 mg tablet 25 mg PO Q6HP PRN nausea and 03/24/24 11/19/24 History vomiting oxybutynin chloride 10 mg 10 mg PO DAILY #90 tabs 04/09/24 11/19/24 Rx tablet,extended release 24 hr tamsulosin 0.4 mg capsule (Flomax) 0.4 mg PO DAILY #30 caps 04/09/24 11/19/24 Rx bisoprolol fumarate 5 mg tablet 5 mg PO PM #30 tabs 04/10/24 11/19/24 Rx tizanidine 4 mg tablet 4 mg PO TIDP PRN Muscle Spasm 90 04/12/24 11/19/24 Rx days #270 tabs levothyroxine 125 mcg tablet 125 mcg PO DAILY 90 days #90 tabs 06/11/24 11/19/24 Rx montelukast 10 mg tablet 10 mg PO PM #90 tabs 06/21/24 11/19/24 Rx albuterol sulfate 90 mcg/actuation 2 puff inhalation Q4-6H PRN 10/17/24 11/19/24 Rx aerosol inhaler shortness of breath or wheezing #8.5 grams triamcinolone acetonide 0.1 % 1 applic topical TID PRN rash 10/17/24 11/19/24 Rx topical cream #453.6 grams duloxetine 30 mg capsule,delayed 30 mg PO DAILY 90 days #90 caps 11/06/24 11/19/24 Rx release pantoprazole 40 mg tablet,delayed 40 mg PO BID #180 tabs 11/06/24 11/19/24 Rx release valsartan 80 mg tablet 80 mg PO DAILY #90 tabs 11/06/24 11/19/24 Rx amlodipine 10 mg tablet 10 mg PO DAILY 11/19/24 11/19/24 History New Prescriptions to Start Prescriptions: Allergies Allergy/AdvReac Type Severity Reaction Status Date / Time Penicillins (PENICILLINS) Allergy Intermediate Rash/hives Verified 11/19/24 11:09 Objective Narrative: Physical Exam: General: Alert and oriented x3, no acute distress, pleasant and cooperative Lungs: Respirations even and unlabored, symmetrical chest expansion Eyes: PERRL Musculoskeletal: Flexion and extension of cervical [spine] somewhat guarded secondary to pain, positive Kemps test Neurological: Speech clear, no gross sensory deficit Assessment and Plan *Assessment and plan (1) Chronic neck pain: Status: Acute Category: Medical Code(s): M54.2 - Cervicalgia; G89.29 - Other chronic pain Plan I did discuss with the patient related to his ongoing symptoms that I do believe he would benefit from a cervical medial branch block. Patient did state that he is not particularly interested in injections due to the fact of how his previous ones went there at . Patient is unable to give clarification of what type of injections he had. Patient was also counseled that we are primarily in injection therapy clinic and that we do not write any scheduled medications for new patients. Patient was counseled that I will reach out to Dr. Salguero to discuss his case with him. I will order the patient compounded cream and send in a prescription of Skelaxin 800 mg 3 times daily as needed with a 2-week dose. Patient will be given a 1 month tentative follow-up appointment. Patient agrees with this plan of care. \ Patient has been instructed to contact the clinic with any concerns before the next appointment. Dr. Salguero has reviewed this note and agrees with this plan of care. This note was dictated using voice recognition software and make contain errors or omissions. All injections are used with Lidocaine, Bupivacaine and dexamethasone. Occasionally urine drug screen is needed to verify patient's compliance with our office pain contract. This is ordered based off specific treatments related to chronic pain with the potential to abuse certain medications.
[2024-12-05 15:38] VITALS: BP 170/87; PULSE 99; RESP 18; O2SAT 96; BMI 33.3
== END 2024-12-05 23:59 | disposition home or self-care (01) ==
PROVIDERS: PCP Internal Medicine; Visit Provider Nurse Practitioner Family
DX: M54.2 Cervicalgia (principal); G89.29 Other chronic pain; Z73.89 Other problems related to life management difficulty; Z87.891 Personal history of nicotine dependence
CPT/HCPCS: 99202; G0463

== ENCOUNTER 2025-01-02 14:01 | Outpatient (POV) | payer MEDICARE, SELFPAY ==
--- OUTSIDE RECORDS SUMMARY | 2024-11-12 18:24 | XMS_ITS | Encounter Summary ---
Author Organization Healthcare Address [address] [place] [address] Care Team Providers Care Assembly Detailer Name Role Phone Carloz Day MD Unavailable [phone] Willie Sargent MD Unavailable Yovany Walsh MD Primary Care Provider [phone] Reason for Referral * Consultation (Routine) - Authorized Specialty Diagnoses / Procedures Referred By Contanabel t Referred To Contact Occupational Therapy Diagnoses Community acquired pneumonia, unspecified laterality Justo Oconnell MD [address] [place] [phone] Phone: tel: fax: Referral ID Status Reason Start Date Expiration Date Visits Requested Visits Authorized [id number] Authorized Consult and Treat 11/18/2024 05/20/2026 1 1 * Consultation (Routine) - Authorized Specialty Diagnoses / Procedures Referred By Contanabel t Referred To Contact Physical Therapy Diagnoses Community acquired pneumonia, unspecified laterality Justo Oconnell MD [address] [place] [phone] Phone: tel: fax: Referral ID Status Reason Start Date Expiration Date Visits Requested Visits Authorized [id number] Authorized Consult and Treat 11/18/2024 05/20/2026 1 1 Reason for Visit * Auth/Cert (Routine) Specialty Diagnoses / Procedures Referred By Tania t Referred To Contact Diagnoses Acute renal failure (ARF) (CMS/HCC) Sepsis pneumonia Kan Lucero MD [address] [facility] [address] [place] [address] Phone: tel: fax: [facility]patient [address] [place] [address] Referral ID Status Reason Start Date Expiration Date Visits Re quested Visits Authorized [id number] 1 1 Encounter Details Date Type Department Care Team (Latest Contact Info) Description 11/12/2024 6:24 PM EDT - 11/18/2024 3:24 PM EDT Hospital Encounter [facility] Inpatient [address] [place] [address] Kan Lucero MD [address] [place] [address] Patric Garland MD [address] [place] [address] Justo Oconnell MD [address] [place] [phone] Acute renal failure with tubular necrosis (CMS/HCC) (Primary Dx); Acute renal failure, unspecified acute renal failure type (CMS/HCC); Shock (CMS/HCC); Community acquired pneumonia, unspecified laterality; Hyperkalemia; Acute hypoxic respiratory failure; Stenosis of carotid artery, unspecified laterality; PVD (peripheral vascular disease) (CMS/HCC); Acquired obstruction of left nasolacrimal duct Discharge Disposition: Home or Self Care Social History Tobacco Use Types Packs/Day Years Used Date Smoking Tobacco: Some Days Cigarettes 0.5 9 Smokeless Tobacco: Never Alcohol Use Standard Drinks/Week Comments Not Currently 0 (1 standard drink = 0.6 oz pur e alcohol) Humiliation, Afraid, Rape, a nd Kick questionnaire Answer Date Recorded Within the last year, have y ou been afraid of your partner or ex-partner? Patient unable to answer 11/14/2024 Within the last year, have y ou been humiliated or emotionally abused in other ways by your partner or ex-partner? Patient unable to answer 11/14/2024 Within the last year, have y ou been kicked, hit, slapped, or otherwise physically hurt by your partner or ex-partner? Patient unable to answer 11/14/2024 Within the last year, have y ou been raped or forced to have any kind of sexual activity by your partner or ex-partner? Patient unable to answer 11/14/2024 Social Connection and Isolation Panel Answer Date Recorded In a typical week, how many times do you talk on the phone with family, friends, or neighbors? Patient unable to answer 11/14/2024 How often do you get togethe r with friends or relatives? Patient unable to answer 11/14/2024 How often do you attend [facility] or [facility] services? Patient unable to answer 11/14/2024 Do you belong to any clubs o r organizations such as mu-ism groups, unions, fraternal or athletic groups, or school groups? Patient unable to answer 11/14/2024 How often do you attend meet ings of the clubs or organizations you belong to? Patient unable to answer 11/14/2024 Are you , , di vorced, , never , or living with a partner? Patient unable to answer 11/14/2024 AUDIT-C Answer Date Recorded Q1: How often do you have a drink containing alcohol? Patient unable to answer 11/14/2024 Q2: How many drinks containi ng alcohol do you have on a typical day when you are drinking? Patient unable to answer Q3: How often do you have si x or more drinks on one occasion? Patient unable to answer 11/14/2024 PHQ-2 Answer Date Recorded Patient Health Questionnaire-2 Score 0 02/01/2023 [facility] - Occupational Stress Questionnaire Answer Date Recorded Do you feel stress - tense, restless, nervous, or anxious, or unable to sleep at night because your mind is troubled all the time - these days? Patient unable to answer 11/14/2024 Exercise Vital Sign Answer Date Recorde d On average, how many days pe r week do you engage in moderate to strenuous exercise (like a brisk walk)? Patient unable to answer 11/14/2024 Minutes of Exercise per Session Not on file 11/14/2024 Hunger Vital Sign Answer Date Recorded Within the past 12 months, y ou worried that your food would run out before you got the money to buy more. Patient unable to answer 11/14/2024 Within the past 12 months, t he food you bought just didn't last and you didn't have money to get more. Patient unable to answer 11/14/2024 PRAPARE - Transportation Answer Date Re corded In the past 12 months, has l ack of transportation kept you from medical appointments or from getting medications? Patient unable to answer 11/14/2024 In the past 12 months, has l ack of transportation kept you from meetings, work, or from getting things needed for daily living? Patient unable to answer 11/14/2024 Housing Stability Vital Sign Answer Son e Recorded In the last 12 months, was t here a time when you were not able to pay the mortgage or rent on time? No 07/19/2023 In the last 12 months, how many places have you lived? 3 07/19/2023 In the last 12 months, was t here a time when you did not have a steady place to sleep or slept in a fci (including now)? No 07/19/2023 Housing Stability Vital Sign Answer Son e Recorded In the last 12 months, was t here a time when you were not able to pay the mortgage or rent on time? Patient unable to answer 11/14/2024 Number of Times Moved in the Last Year Not on fi le 11/14/2024 Homeless in the Last Year Not on file 2024 Utilities Answer Date Recorded In the past 12 months has th e [employer], gas, oil, or water company threatened to shut off services in your home? Patient unable to answer 11/14/2024 PHQ-2A Answer Date Recorded Patient Health Questionnaire-2 Score 0 02/01/2023 Sex and Gender Information Value Date Recorded Sex Assigned at Not on file Legal Sex Male 8:40 PM EDT Gender Identity Not on file Sexual Orientation Not on file documented as of this encounter Last Filed Vital Signs Vital Sign Reading Time Taken Comments Blood Pressure 148/80 11/18/2024 12:36 PM EDT Pulse 75 11/18/2024 2:33 PM EDT Temperature 36.7 C (98.1 F) 11/18/2024 12:36 PM EDT Respiratory Rate 18 11/18/2024 2:42 PM EDT Oxygen Saturation 100% 11/18/2024 2:42 PM EDT Inhaled Oxygen Concentration - - Weight 109 kg (240 lb 11.9 oz) 11/18/2024 6:00 A M EDT Height 177.8 cm (5' 10 ) 11/12/2024 7:00 PM EDT Body Mass Index 34.54 11/12/2024 7:00 PM EDT documented in this encounter Functional Status * AUDIT-C Score Answer Date of Assessment Author -1 11/14/2024 3:00 PM EDT Maximiliano Wagner RN * Question Answer Date of Assessment Author Q1: How often do you have a drink containing alcohol? Patient unable to answer 11/14/2024 3:00 PM EDT Maire Wagner RN Q2: How many drinks containing alcohol do you have on a typical day when you are drinking? Patient unable to answer 11/14/2024 3:00 PM EDT Marie Wagner RN Q3: How often do you have six or more drinks on one occasion? Patient unable to answer 11/14/2024 3:00 PM EDT Marie Wagner RN * Calculated C-SSRS Risk Score (Lifetime/Recent) Answer Date of Assessment Author No Risk Indicated 11/18/2024 8:00 AM EDT Werner Dan LPN * Question Answer Date of Assessment Author 1. Wish to be (Past 1 Month) No 025 8:00 AM EDT Werner Dan LPN 2. Non-Specific Active Suici ladan Thoughts (Past 1 Month) No 11/18/2024 8:00 AM EDT Werner Dan LPN 6. Suicidal Behavior (Lifetime) No 8:00 AM EDT Werner Dan LPN documented as of this encounter Medications at Time of Discharge acetaminophen (Tylenol) 325 MG tablet Take 2 tablets by mouth every 4 hours as needed for fever (for temperature > 38.5). Under [place] law, monthly prescriptions (30 days) can be refilled at 25 days and three-month prescriptions (90 days) at 80 days. Please contact the insurance company with questions if refills are denied. 11/18/2024 albuterol 108 (90 Base) MCG/ACT inhaler Inhale 2 puffs every 4 to 6 hours as needed for wheezing. 1 each 1 11/18/2024 amLODIPine (Norvasc) 10 MG tablet Take 1 tablet by mouth daily. 30 tablet 2 11/19/2024 atorvastatin (Lipitor) 40 MG tablet Take 1 tablet by mouth nightly. 30 tablet 2 11/18/2024 5 Budeson-Glycopyr rol-Formoterol (Breztri Aerosphere) 160-9-4.8 MCG/ACT aerosol Inhale 2 puffs 2 times a day. DULoxetine (Cymbalta) [address] capsule Take 1 capsule by mouth daily. Do not crush or chew. levothyroxine (Synthroid, Levoxyl) 125 MCG tablet Take 1 tablet by mouth daily before breakfast. montelukast (Singulair) 10 MG tablet Take 1 tablet by mouth daily. naloxone (Kloxxado) 8 mg/0.1 mL nasal spray 1. Give 1 spray in nostril for no/slow breathing or cannot wake after opioid use 2. Call 911 3. Repeat in other nostril if symptoms continue 1 each 07/20/2023 pantoprazole (Protonix) 40 MG EC tablet Take 1 tablet by mouth 2 times a day. Do not crush, chew, or split. documented as of this encounter Miscellaneous Notes * Care Plan - Junior Diaz RN - 11/18/2024 2:47 PM EDT Problem: Adult Inpatient Plan of Care Goal: Plan of Care Review Outcome: Adequate for Care Transition Goal: Patient-Specific Goal (Individualized) Outcome: Adequate for Care Transition Goal: Absence of Hospital-Acquired Illness or Injury Outcome: Adequate for Care Transition Goal: Optimal Comfort and Wellbeing Outcome: Adequate for Care Transition Goal: Readiness for Transition of Care Outcome: Adequate for Care Transition Problem: Fall Injury Risk Goal: Absence of Fall and Fall-Related Injury Outcome: Adequate for Care Transition Problem: Airway Clearance Ineffective Goal: Effective Airway Clearance Outcome: Adequate for Care Transition Problem: Mobility Impairment Goal: Optimal Mobility Outcome: Adequate for Care Transition Problem: Functional Deficit Goal: Improved Balance and Postural Control Outcome: Adequate for Care Transition Goal: Optimal Cognitive Function Outcome: Adequate for Care Transition Goal: Optimal Coordination Outcome: Adequate for Care Transition Goal: Improved Muscle Strength Outcome: Adequate for Care Transition Goal: Improved Muscle Tone Outcome: Adequate for Care Transition Goal: Optimal Range of Motion Outcome: Adequate for Care Transition Goal: Compensation for Sensory Deficit Outcome: Adequate for Care Transition Problem: Infection Goal: Absence of Infection Signs and Symptoms Outcome: Adequate for Care Transition D/C instructions given. * Progress Notes - Zhane Hart RN - 11/18/2024 2:23 PM EDT Case Management Adult Progress Note Warren Atkinson 69 y.o. male CSN: [id number] Admission: 11/12/2024 6:24 PM Primary Problem: Acute renal failure (ARF) (CMS/HCC) Anticipated Discharge Date: 11/18/24 [facility] has accepted new home oxygen referral. Portable oxygen will be brought to the bedside on 11/18/24. [facility] will coordinate home oxygen system with Mr. Atkinson/family . Additional Comments Zhane Hart RN * Care Plan - Werner Dan LPN - 11/18/2024 1:50 PM EDT Problem: Adult Inpatient Plan of Care Goal: Plan of Care Review Outcome: Ongoing, Progressing Flowsheets (Taken 11/18/2024 1350) Progress: improving Plan of Care Reviewed With: patient Goal: Patient-Specific Goal (Individualized) Outcome: Ongoing, Progressing Goal: Absence of Hospital-Acquired Illness or Injury Outcome: Ongoing, Progressing Goal: Optimal Comfort and Wellbeing Outcome: Ongoing, Progressing Goal: Readiness for Transition of Care Outcome: Ongoing, Progressing Problem: Fall Injury Risk Goal: Absence of Fall and Fall-Related Injury Outcome: Ongoing, Progressing Problem: Airway Clearance Ineffective Goal: Effective Airway Clearance Outcome: Ongoing, Progressing Problem: Mobility Impairment Goal: Optimal Mobility Outcome: Ongoing, Progressing Problem: Functional Deficit Goal: Improved Balance and Postural Control Outcome: Ongoing, Progressing Goal: Optimal Cognitive Function Outcome: Ongoing, Progressing Goal: Optimal Coordination Outcome: Ongoing, Progressing Goal: Improved Muscle Strength Outcome: Ongoing, Progressing Goal: Improved Muscle Tone Outcome: Ongoing, Progressing Goal: Optimal Range of Motion Outcome: Ongoing, Progressing Goal: Compensation for Sensory Deficit Outcome: Ongoing, Progressing Problem: Infection Goal: Absence of Infection Signs and Symptoms Outcome: Ongoing, Progressing * Junior Bingham RN - 11/18/2024 1:41 PM EDT Images from the original note were not included. [id number] Acetaminophen Brand Name(s): Actamin??, Feverall??, Panadol??, Tempra Quicklets??, Tylenol??, Dayquil?? (as a combination product containing Acetaminophen, Dextromethorphan, Pseudoephedrine), NyQuil Cold/Flu Relief?? (as a combination product containing Acetaminophen, Dextromethorphan, Doxylamine), Percocet?? (as a combination product containing Acetaminophen, Oxycodone) APAP, Z-wwwkqh-jyot-aminophenol, Paracetamol IMPORTANT WARNING: Taking too much acetaminophen can cause liver damage, sometimes serious enough to require liver transplantation or cause . You might accidentally take too much acetaminophen if you do not followthe directions on the prescription or package label carefully, or if you take more than one productthat contains acetaminophen. To be sure that you take acetaminophen safely, you should ?? not take more than one product that contains acetaminophen at a time. Read the labels of all theprescription and nonprescription medications you are taking to see if they contain acetaminophen. Be aware that abbreviations such as APAP, AC, Acetaminophen, Acetaminoph, Acetaminop, Acetamin, or Acetam. may be written on the label in place of the word acetaminophen. Ask your doctor or pharmacist i f you don't know if a medication that you are taking contains acetaminophen. ?? take acetaminophen exactly as directed on the prescription or package label. Do not take more acetaminophen or take it more often than directed, even if you still have fever or pain. Ask your doctor or pharmacist if you do not know how much medication to take or how often to take your medication. Call your doctor if you still have pain or fever after taking your medication as directed. ?? be aware that you should not take more than 4000 mg of acetaminophen per day. If you need to take more than one product that contains acetaminophen, it may be difficult for you to calculate the total amount of acetaminophen you are taking. Ask your doctor or pharmacist to help you. ?? tell your doctor if you have or have ever had liver disease. ?? not take acetaminophen if you drink three or more alcoholic drinks every day. Talk to your doctor about the safe use of alcohol while you are taking acetaminophen. ?? stop taking your medication and call your doctor right away if you think you have taken too muchacetaminophen, even if you feel well. Talk to your pharmacist or doctor if you have questions about the safe use of acetaminophen or acetaminophen-containing products. WHY is this medicine prescribed? Acetaminophen is used to relieve mild to moderate pain from headaches, muscle aches, menstrual periods, colds and sore throats, toothaches, backaches, reactions to vaccinations (shots), and to reducefever. Acetaminophen may also be used to relieve the pain of osteoarthritis (arthritis caused by the breakdown of the lining of the joints). Acetaminophen is in a class of medications called analgesics (pain relievers) and antipyretics (fever reducers). It works by changing the way the body senses pain and by cooling the body. HOW should this medicine be used? Acetaminophen comes as a tablet, chewable tablet, capsule, suspension or solution (liquid), extended-release (long-acting) tablet, and orally disintegrating tablet (tablet that dissolves quickly in the mouth), to take by mouth, with or without food. Acetaminophen is available without a prescription, but your doctor may prescribe acetaminophen to treat certain conditions. Follow the directions on the package or prescription label carefully, and ask your doctor or pharmacist to explain any part you do not understand. If you are giving acetaminophen to your child, read the package label carefully to make sure that it is the right product for the age of the child. Do not give children acetaminophen products that are made for adults. Some products for adults and older children may contain too much acetaminophen for a younger child. Check the package label to find out how much medication the child needs. If you know how much your child weighs, give the dose that matches that weight on the chart. If you don't know your child's weight, give the dose that matches your child's age. Ask your child's doctor if you don't know how much medication to give your child. Acetaminophen comes in combination with other medications to treat cough and cold symptoms. Ask your doctor or pharmacist for advice on which product is best for your symptoms. Check nonprescription cough and cold product labels carefully before using two or more products at the same time. These products may contain the same active ingredient(s) and taking them together could cause you to receivean overdose. This is especially important if you will be giving cough and cold medications to a child. Swallow the extended-release tablets whole; do not split, chew, crush, or dissolve them. Place the orally disintegrating tablet ('Meltaways') in your mouth and allow it to dissolve, or chew it before swallowing. Shake the suspension well before each use to mix the medication evenly. Always use the measuring cup or syringe provided by the yarrow gatherer to measure each dose of the solution or suspension. Do notswitch dosing devices between different products; always use the device that comes in the product packaging. Stop taking acetaminophen and call your doctor if your symptoms get worse, you develop new or unexpected symptoms, including redness or swelling, your pain lasts for more than 10 days, or your fever gets worse or lasts more than 3 days. Also stop giving acetaminophen to your child and call your child's doctor if your child develops new symptoms, including redness or swelling, or if your child's pain lasts for longer than 5 days, or if a fever gets worse or lasts longer than 3 days. Do not give acetaminophen to a child who has a sore throat that is severe or does not go away, or that occurs along with fever, headache, rash, nausea, or vomiting. Call the child's doctor right away, because these symptoms may be signs of a more serious condition. Are there OTHER USES for this medicine? Acetaminophen may also be used in combination with aspirin and caffeine to relieve the pain associated with migraine headache. This medication is sometimes prescribed for other uses; ask your doctor or pharmacist for more information. What SPECIAL PRECAUTIONS should I follow? Before taking acetaminophen, ?? tell your doctor and pharmacist if you are allergic to acetaminophen, any other medications, or any of the ingredients in the product. Ask your pharmacist or check the label on the package for a list of ingredients. ?? tell your doctor and pharmacist what prescription and nonprescription medications, vitamins, nutritional supplements, or herbal products you are taking or plan to take while taking acetaminophen. Your doctor may need to change the doses of your medications or monitor you carefully for side effects. ?? The following nonprescription products may interact with acetaminophen: medications for pain, coughs, fever, and colds. Be sure to let your doctor and pharmacist know that you are taking these medications before you start taking acetaminophen. Do not start any of these medications while taking acetaminophen without discussing with your healthcare provider. ?? tell your doctor if you have ever developed a rash after taking acetaminophen. ?? tell your doctor if you are , plan to become , or are breast- feeding. If you become while taking acetaminophen, call your doctor. ?? if you drink three or more alcoholic beverages every day, do not take acetaminophen. Ask your doctor or pharmacist about the safe use of alcoholic beverages while taking acetaminophen. ?? you should know that combination acetaminophen products for cough and colds that contain nasal decongestants, antihistamines, cough suppressants, and expectorants should not be used in children younger than 2 years of age. Use of these medications in young children can cause serious and life-threatening effects or . In children 2 through 11 years of age, combination cough and cold products should be used carefully and only according to the directions on the label. ?? if you have phenylketonuria (PKU, an inherited condition in which a special diet must be followed to prevent damage to your brain that can cause severe intellectual disability), you should know that some brands of acetaminophen chewable tablets may be sweetened with aspartame, a source of phenylalanine. What SPECIAL DIETARY instructions should I follow? Unless your doctor tells you otherwise, continue your normal diet. What should I do IF I FORGET to take a dose? This medication is usually taken as needed. If your doctor has told you to take acetaminophen regularly, take the missed dose as soon as you remember it. However, if it is almost time for the next dose, skip the missed dose and continue your regular dosing schedule. Do not take a double dose to make up for a missed one. What SIDE EFFECTS can this medicine cause? Some side effects can be serious. If you experience any of the following symptoms, stop taking acetaminophen and call your doctor immediately or get emergency medical attention: ?? red, peeling or blistering skin ?? rash ?? hives ?? itching ?? swelling of the face, throat, tongue, lips, eyes, hands, feet, ankles, or lower legs ?? hoarseness ?? difficulty breathing or swallowing Acetaminophen may cause other side effects. Call your doctor if you have any unusual problems whileyou are taking this medication. If you experience a serious side effect, you or your doctor may send a report to the Food and Drug Administration's (FDA) MedWatch Adverse Event Reporting program online (https://www.fda.gov/Safety/MedWatch) or by phone ( ). What should I know about STORAGE and DISPOSAL of this medication? Keep this medication in the container it came in, tightly closed, and out of reach of children. Store it at room temperature and away from excess heat and moisture (not in the bathroom). It is important to keep all medication out of sight and reach of children as many containers (such as weekly pill minders and those for eye drops, creams, patches, and inhalers) are not child-resistant and young children can open them easily. To protect young children from poisoning, always lock safety caps and immediately place the medication in a safe location - one that is up and away and out of their sight and reach. https://www.upandaway.org Unneeded medications should be disposed of in special ways to ensure that pets, children, and otherpeople cannot consume them. However, you should not flush this medication down the toilet. Instead,the best way to dispose of your medication is through a medicine take-back program. Talk to your pharmacist or contact your local garbage/recycling department to learn about take-back programs in your community. See the FDA's Safe Disposal of Medicines website (https://goo.gl/c4Rm4p) for more information if you do not have access to a take-back program. What should I do in case of OVERDOSE? In case of overdose, call the poison control helpline at . Information is also available online at https://www.poisonhelp.org/help. If the victim has collapsed, had a seizure, has trouble breathing, or can't be awakened, immediately call emergency services at 911. If someone takes more than the recommended dose of acetaminophen, get medical help immediately, even if the person does not have any symptoms. Symptoms of overdose may include the following: ?? nausea ?? vomiting ?? loss of appetite ?? sweating ?? extreme tiredness ?? unusual bleeding or bruising ?? pain in the upper right part of the stomach ?? yellowing of the skin or eyes ?? flu-like symptoms What OTHER INFORMATION should I know? Before having any laboratory test, tell your doctor and the laboratory personnel that you are taking acetaminophen. Ask your pharmacist any questions you have about acetaminophen. It is important for you to keep a written list of all of the prescription and nonprescription (jvay-[id number]-[id number]) medicines you are taking, as well as any products such as vitamins, minerals, or otherdietary supplements. You should bring this list with you each time you visit a doctor or if you areadmitted to a hospital. It is also important information to carry with you in case of emergencies. This report on medications is for your information only, and is not considered individual patient advice. Because of the changing nature of drug information, please consult your physician or pharmacist about specific clinical use. The [employer] represents that the information provided hereunder was formulated with a reasonable standard of care, and in conformity with professional standards in the field. The [employer] makes no representations or warranties, express or implied, including, but not limited to, any implied warranty of merchantability and/or fitness for a particular purpose, with respect to such information and specifically disclaims all such warranties. Users are advised that decisions regarding drug therapy are complex medical decisions requiring the independent, informed decision of an appropriate health menagerie caretaker, and the information is provided for informational purposes only. The entire monograph for a drug should be reviewed for a thorough understanding of the drug's actions, uses and side effects. The [employer] does not endorse or recommend the use of any drug.The information is not a substitute for medical care. AHFS?? Patient Medication Information?. ?? Copyright, 2023. The [employer]??, [address], [address], [place], [place]. All Rights Reserved. Duplication for commercial use must be authorized by [facility]. Selected Revisions: April 01, 2023. AHFS?? Patient Medication Information?. ?? Copyright, 2024 * Discharge Summary - Justo Oconnell MD - 11/18/2024 1:24 PM EDT Hospitalization Admit Date/Time: 11/12/2024 6:24 PM Admitting Attending: Kan Lucero Discharge Date: 11/18/24 Discharge Attending Physician: Justo Oconnell MD PCP name and Address: Yovany Walsh MD [address] [facility] [address] / [place] [address] Referring provider name and address: Noni Hernandez, [address] [address] Chief Concern, Brief History of Present Illness, and Hospital Course Warren Atkinson is a 69 y.o. male with PMHx opioid use, HTN, HLD, obesity, tobacco use 1/2PPD smoker, hypothyroidism, remote head and neck CA, CKD 3 with sCr 1.5 at baseline who presents as transfer from OSH for evaluation of acute renal failure. Patient originally presented to OSH as a stroke alert. According to EMS, family called because patient was altered and fell out of bed. Upon EMS arrival, they noted flaccid paralysis on left side and pt was GCS 10. Patient was hypotensive and hypoxic and was placed on CPAP and given fluids in route. Patient endorses cough, fevers, shortness of breath. CT head with mild atrophy, no acute intracranial abnormality. Initial workup showed leukocytosis of10k, hgb 10.7, VBG 7.17/48/90 with bicarb 17.2, lactic acid 2.4, sCr 9.2, BUN 68. All electrolytes WNL. CXR with evidence of bilateral pneumonia. CT AP unremarkable other than left kidney cyst measuring 10.6 X 8.8cm. UA negative for nitrites & leukoesterase. Patient received 2L IVF and was started on broad spectrum ABX with Vancomycin, Cefepime and Azithromycin due to concerns for septic shock. On arrival to , patient on 0.1mcg/kg/min of Levophed to maintain stable BP. Patient hypoxic on 6LNC to 81%, VBG obtained revealed mild hypercarbia and patient placed on BIPAP. Bilateral crackles auscultated bilaterally. Patient following commands without focal deficits, however noted to have bilateral tremor in upper extremities. Following admission, had significant improvement in shock with low dose levophed requirements. Antibiotics de-escalated to CAP coverage with azithromycin and rocephin. Renal function continues to improve with volume resuscitation with adequate electrolyte clearance. Patient able to be weaned off Levophed on morning of 11/14. Stress dose steroids stopped. Respiratory culture with streptococcus pneumoniae and being treated with ceftriaxone x 5 days. Patient on nasal cannula and hemodynamically stable. Patient downgraded to acute level care on 11/15. Hospital course by problem: Strep pneumonia PNA (POA) Shock (POA), resolved Hypoxia (POA) Tobacco Use (POA) - Reports 1 week of productive cough, fever, chills - No baseline oxygen requirement - CXR: with bilateral patchy opacities - VBG 7.16/57/<30/29 on arrival - MRSA nares neg, strep pneumo/legionella neg - Respiratory culture: strep pneumonia -Blood cx now growth day 5 - Completed course of azithromycin 11/14 PLAN: - Continue nasal cannula as needed, wean oxygen as able maintain SPO2 >92% - Completed ceftriaxone x 5 days on 11/17/24 -continue Albuterol/ atrovent MDI as needed Respiratory status improved significantly . Sats on RA variable and did drop down to as low as 85% as of 11/18/24. Will go home with 2L NC O2 at discharge. ALONZO on CKD 3 (POA) Hyperkalemia (POA) Hyperphosphatemia (POA) - Baseline Creatinine appears to be around 1.0 in 2023, 9 on admission to OSH, now at 3.6 after 2.5L IVF resuscitation - Renal U/S with bilateral cysts, no hydronephrosis - K+ 6.1 on admission to , EKG with NSR with RBBB; received hyperkalemia treatment x1 - UA w/ hyaline casts, calcium oxalate crystals - Renal US with 1.7cm cyst on right kidney, several cysts up to 10.2cm on left kidney -ALONZO resolved. PLAN: - Avoid NSAIDS/nephrotoxic agents and renally dose medications -We have resumed his valsartan which he seems to be tolerating well. Cr has been 0.9-1.0. -Would check BMP within 1 week upon follow up with PCP. Anemia, chronic, normocytic (POA) Uncertain etiology Previously had some iron deficiency Follow up with PCP. Levothyroxine (POA) - Continue home levothyroxine 125 mcg daily HTN (POA) - Home meds: Amlodipine, valsartan PLAN: - Continue home Valsartan 80 mg daily - Increased amlodipine to 10mg daily. 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 - He also had a history of an unknown primary metastatic to the right neck treated at [facility] in [id number] with right neck dissection and radiation therapy. 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 PT / OT has seen and recommend home with assistance and outpatient PT/OT Surgeries and Procedures Procedures performed in this encounter Procedures Central Line Critical Care Critical Care Critical Care Medication List .. acetaminophen 325 MG tablet Commonly known as: Tylenol Take 2 tablets by mouth every 4 hours as needed for fever (for temperature > 38.5). Under [facility] law, monthly prescriptions (30 days) can be refilled at 25 days and three-month prescriptions (90days) at 80 days. Please contact the insurance company with questions if refills are denied. albuterol 108 (90 Base) MCG/ACT inhaler Inhale 2 puffs every 4 to 6 hours as needed for wheezing. amLODIPine 10 MG tablet Commonly known as: Norvasc Take 1 tablet by mouth daily. Start taking on: November 19, 2024 atorvastatin 40 MG tablet Commonly known as: Lipitor Take 1 tablet by mouth nightly. Breztri Aerosphere 160-9-4.8 MCG/ACT aerosol Generic drug: Wscrgaf-Kuzpifgwavj-Rpoerzzryr Inhale 2 puffs 2 times a day. DULoxetine [address] capsule Commonly known as: Cymbalta Take 1 capsule by mouth daily. Do not crush or chew. Kloxxado 8 MG/0.1ML nasal spray Generic drug: naloxone 1. Give 1 spray in nostril for no/slow breathing or cannot wake after opioid use 2. Call 911 3. Repeat in other nostril if symptoms continue levothyroxine 125 MCG tablet Commonly known as: Synthroid, Levoxyl Take 1 tablet by mouth daily before breakfast. montelukast 10 MG tablet Commonly known as: Singulair Take 1 tablet by mouth daily. pantoprazole 40 MG EC tablet Commonly known as: Protonix Take 1 tablet by mouth 2 times a day. Do not crush, chew, or split. valsartan 80 MG tablet Commonly known as: Diovan Take 1 tablet (80 mg) by mouth 1 (one) time each day. Where to Get Your Medications These medications were sent to [facility] - [place], [place] - [address] [facility] [id number] albuterol 108 (90 Base) MCG/ACT inhaler amLODIPine 10 MG tablet atorvastatin 40 MG tablet Information about where to get these medications is not yet available Ask your nurse or doctor about these medications acetaminophen 325 MG tablet Discharge Diagnosis Medical Problems Active and Resolved Hospital Problems Hospital * (Principal) Acute renal failure (ARF) (CMS/HCC) Post Discharge Instructions Follow-up with your primary care provider in 1 week. Would check BMP within 1 week upon follow up with PCP. Outpatient Follow-Up No future appointments. Test Results Pending At Discharge Pending Labs Order Current Status Comprehensive Urine Drug Screening, Qualitative Assay, >= 27 Drug Classes In process Pertinent Physical Exam At Time of Discharge Physical Exam Constitutional: General: He is not in acute distress. Appearance: He is well-developed. He is not diaphoretic. HENT: Head: Normocephalic and atraumatic. Mouth/Throat: Comments: Normal oral and pharyngeal mucosa Cardiovascular: Rate and Rhythm: Normal rate and regular rhythm. Heart sounds: Normal heart sounds. Pulmonary: Effort: Pulmonary effort is normal. Breath sounds: Normal breath sounds. Comments: Few scattered wheezed Abdominal: General: Bowel sounds are normal. Palpations: Abdomen is soft. Tenderness: There is no abdominal tenderness. Skin: General: Skin is warm and dry. Neurological: Mental Status: He is alert. Discharge Disposition/Condition Disposition: Home Condition: Stable (s/sx potential problems absent or manageable) I spent >30 minutes of patient care and instruction time in preparation for this discharge. * Significant Event - Zhane Hart RN - 11/18/2024 12:27 PM EDT 11/18/24 1222 Oxygen Therapy Oxygen Therapy None SpO2 (!) 85 % Patient Activity During SpO2 Measurement At rest * Nursing Note - Umer Cifuentes RN - 11/18/2024 12:15 PM EDT Remote Telemetry Nursing Note Event Type: Patient educated on telemetry monitoring and Routine rounds Heart Rate of 63, 95% RA Patient Disposition: Remains on remote telemetry for SpO2 ONLY 1200 Continuous pulse ox dc'd patient being discharged * Nursing Note - Arelis Stephenson RN - 11/17/2024 11:30 PM EDT Remote Telemetry Nursing Note Event Type: Routine rounds Heart Rate of 72 SPO2 ONLY Patient resting in bed. Appropriate verbal responses. Respirations even and unlabored. SPO2 @ 98% on 2LNC. No signs acute distress noted. Telemetry Box #[id number] intact for continuous pulse ox monitoring with appropriate signal and function. Batteries changed. SPO2 monitoring ongoing. Visit Vitals BP (!) 158/84 Pulse 65 Temp 36.9 ??C (98.4 ??F) Resp 16 Ht 1.778 m (5' 10 ) Wt 109 kg (240 lb 4.8 oz) SpO2 94% BMI 34.48 kg/m?? Smoking Status Some Days BSA 2.32 m?? * Care Plan - Carlos Meza LPN - 11/17/2024 10:42 PM EDT Problem: Adult Inpatient Plan of Care Goal: Plan of Care Review Outcome: Ongoing, Progressing Flowsheets (Taken 11/17/2024 2242) Progress: improving Plan of Care Reviewed With: patient Goal: Patient-Specific Goal (Individualized) Outcome: Ongoing, Progressing Goal: Absence of Hospital-Acquired Illness or Injury Outcome: Ongoing, Progressing Goal: Optimal Comfort and Wellbeing Outcome: Ongoing, Progressing Goal: Readiness for Transition of Care Outcome: Ongoing, Progressing Problem: Fall Injury Risk Goal: Absence of Fall and Fall-Related Injury Outcome: Ongoing, Progressing Problem: Airway Clearance Ineffective Goal: Effective Airway Clearance Outcome: Ongoing, Progressing Problem: Mobility Impairment Goal: Optimal Mobility Outcome: Ongoing, Progressing Problem: Functional Deficit Goal: Improved Balance and Postural Control Outcome: Ongoing, Progressing Goal: Optimal Cognitive Function Outcome: Ongoing, Progressing Goal: Optimal Coordination Outcome: Ongoing, Progressing Goal: Improved Muscle Strength Outcome: Ongoing, Progressing Goal: Improved Muscle Tone Outcome: Ongoing, Progressing Goal: Optimal Range of Motion Outcome: Ongoing, Progressing Goal: Compensation for Sensory Deficit Outcome: Ongoing, Progressing Problem: Infection Goal: Absence of Infection Signs and Symptoms Outcome: Ongoing, Progressing * Nursing Note - Lilia Christiansen RN - 11/17/2024 3:18 PM EDT Remote Telemetry Nursing Note Continuous SpO2 Only: Event Type: New continuous pulse ox monitoring only, patient educated on remote monitoring Patient sitting up in chair on room air upon my arrival with spO2 89%. Placed on 2L NC and O2 sats increased to 97%. Pulse 80 Patient Condition: Stable Patient Disposition: Remains on remote telemetry monitoring of cont pulse ox only * Nursing Note - Steph Quispe RN - 11/17/2024 1:14 PM EDT Report called to east. Pt transported w no s.s of distress noted. Breathing even and nonlabored * Progress Notes - West Mix III, PA - 11/17/2024 12:38 PM EDT Images from the original note were not included. Pulmonary, Critical Care, & Sleep Medicine MICU PROGRESS NOTE Events of past 24 hours No acute events or issues overnight. Patient remained hemodynamically stable, afebrile, and rested comfortably overnight. He continues to require supplemental oxygen at 2-3 LPM mainly at night. He denies SOA or dyspnea with exertion. He reports he had a sleep study 2yrs ago that was negative. Home Amlodipine increased to 10. He continues to have no critical-care needs at this time. Summary of ICU Course: Warren Atkinson is a 69 y.o. male with PMHx opioid use, HTN, HLD, obesity, tobacco use 1/2PPD smoker, hypothyroidism, remote head and neck CA, CKD 3 with sCr 1.5 at baseline who presents as transfer from OSH for evaluation of acute renal failure. Patient originally presented to OSH as a stroke alert. According to EMS, family called because patient was altered and fell out of bed. Upon EMS arrival, they noted flaccid paralysis on left side and pt was GCS 10. Patient was hypotensive and hypoxic and was placed on CPAP and given fluids in route. Patient endorses cough, fevers, shortness of breath. CT head with mild atrophy, no acute intracranial abnormality. Initial workup showed leukocytosis of10k, hgb 10.7, VBG 7.17/48/90 with bicarb 17.2, lactic acid 2.4, sCr 9.2, BUN 68. All electrolytes WNL. CXR with evidence of bilateral pneumonia. CT AP unremarkable other than left kidney cyst measuring 10.6 X 8.8cm. UA negative for nitrites & leukoesterase. Patient received 2L IVF and was started on broad spectrum ABX with Vancomycin, Cefepime and Azithromycin due to concerns for septic shock. On arrival to , patient on 0.1mcg/kg/min of Levophed to maintain stable BP. Patient hypoxic on 6LNC to 81%, VBG obtained revealed mild hypercarbia and patient placed on BIPAP. Bilateral crackles auscultated bilaterally. Patient following commands without focal deficits, however noted to have bilateral tremor in upper extremities. Following admission, had significant improvement in shock with low dose levophed requirements. Antibiotics de-escalated to CAP coverage with azithromycin and rocephin. Renal function continues to improve with volume resuscitation with adequate electrolyte clearance. Patient able to be weaned off Levophed on morning of 11/14. Stress dose steroids stopped. Respiratory culture with streptococcus pneumoniae and being treated with ceftriaxone x 5 days. Patient on nasal cannula and hemodynamically stable. Patient downgraded to acute level care on 11/15. Review of Systems Otherwise, 14 point review of systems completed and negative except as above or in HPI. Last Recorded Vitals Blood pressure (!) 186/85, pulse 61, temperature 37 ??C (98.6 ??F), resp. rate 16, height 1.778 m (5' 10 ), weight 109 kg (240 lb 4.8 oz), SpO2 91%. O2 Delivery Method: Nasal cannula Flow: 3 LPM Physical Exam Vitals reviewed. Constitutional: General: He is not in acute distress. Appearance: Normal appearance. He is well-developed. He is obese. He is ill- appearing. He is not toxic-appearing or diaphoretic. Interventions: Nasal cannula in place. HENT: Head: Normocephalic and atraumatic. Mouth/Throat: Mouth: Mucous membranes are moist. Eyes: Extraocular Movements: Extraocular movements intact. Cardiovascular: Rate and Rhythm: Normal rate and regular rhythm. Pulses: Normal pulses. Heart sounds: Normal heart sounds. Pulmonary: Effort: Pulmonary effort is normal. No respiratory distress. Breath sounds: Normal breath sounds. Musculoskeletal: Right lower leg: No edema. Left lower leg: No edema. Skin: General: Skin is warm and dry. Neurological: Mental Status: He is alert and oriented to person, place, and time. Psychiatric: Behavior: Behavior normal. Behavior is cooperative. Current Lines Drains Airway Patient Lines/Drains/Airways Status Active Active LDAs Name Placement date Placement time Site Days Peripheral IV 11/12/24 Right Antecubital 11/12/24 -- Antecubital 5 Results CBC WBC 6.59 Hb 10.5 (L) Plt 166 Hct 32.6 (L) ANC ?? INR ??, PTT ??, Anti-Xa ?? BMP Na 145 Cl 105 BUN 21 Glu 106 (H) K 4.0 Co2 27 Cr 0.99 Ca 9.4 iCa 4.7 Mg 2.0, Phos 2.6 Lactate ?? LFT AST ?? AlkPhos ?? T Prot ?? ALK ?? Bili ?? Alb ?? D.Bili ?? Results from last 7 days Lab Units 11/13/24 0513 11/13/24 0158 HCO3 ART mmol/L 20* 19* O2 SAT, MEASURED % 98 97 Results Procedure Component Value Units Date/Time Respiratory Culture and Gram Stain [[id number]] (Abnormal) (Susceptibility) Collected: 11/12/24 3690 Order Status: Completed Specimen: Sputum, Expectorated Updated: 11/17/24 0803 Culture Moderate Growth 2+ Mixed upper respiratory tiffanie Comment: The organism value for this result has been updated. These results have been appended to the previously preliminary verified report. 3+ Streptococcus pneumoniae Comment: CAUTION: If your patient has signs and symptoms suggesting meningitis call [phone] (Qmysa) for appropriate susceptibility results to Penicillin and Ceftriaxone. Susceptibility results listed here are for Streptococcus pneumoniae non-meningitis treatment only. Break points differ for LANDMAN infections. The organism value for this result has been updated. These results have been appended to the previously preliminary verified report. Gram Stain Result Greater than 25 WBC/LPF Fewer than 10 Epithelial cells/LPF Moderate Gram positive rods Moderate Gram positive cocci in pairs Few Yeast Susceptibility Streptococcus pneumoniae ETEST Ceftriaxone (Non-meningitis) 1.0 Susceptible Erythromycin 4.0 Resistant Levofloxacin 0.50 Susceptible Penicillin parenteral (Non-meningitis) 1.0 Susceptible Tetracycline 0.125 Susceptible Trimethoprim/Sulfamethoxazole 0.125 Susceptible Blood Culture (Aerobic/Anaerobet Set) [[id number]] Collected: 11/12/24 1848 Order Status: Completed Specimen: Blood from Arm, Right Updated: 11/16/242000 Culture No growth at day 4 Intake and Output Intake/Output Summary (Last 24 hours) at 11/17/2024 1238 Last data filed at 11/17/2024 0800 Gross per 24 hour Intake 240 ml Output 1000 ml Net -760 ml Scheduled Medications amLODIPine, 10 mg, Oral, Daily atorvastatin, 40 mg, Oral, Nightly DULoxetine, 30 mg, Oral, Daily heparin (porcine), 5,000 Units, Subcutaneous, q8h AMY ipratropium-albuterol, 3 mL, Nebulization, q6h levothyroxine, 125 mcg, Oral, q AM montelukast, 10 mg, Oral, Nightly pantoprazole, 40 mg, Oral, Daily polyethylene glycol, 17 g, Oral, Daily senna, 8.6 mg, Oral, Nightly sodium chloride, 10 mL, Intravenous, q12h valsartan, 80 mg, Oral, Daily PRN Medications PRN medications: acetaminophen, glucose OR dextrose OR glucagon (human recombinant), ipratropium-albuterol, sodium chloride, sodium chloride Assessment and Plan Warren Atkinson is a 69 y.o. male with PMHx opioid use, HTN, HLD, obesity, tobacco use 1/2PPD smoker, hypothyroidism, remote head and neck CA, CKD 3 with sCr 1.5 at baseline who presents as transfer to MICU from OSH for evaluation of acute renal failure, shock and respiratory failure. Hypoxia (POA) Tobacco Use (POA) Strep pneumonia PNA (POA) - Reports 1 week of productive cough, fever, chills - No baseline oxygen requirement - CXR: with bilateral patchy opacities - VBG 7.16/57/<30/29 on arrival - MRSA nares neg, strep pneumo/legionella neg - Respiratory culture: strep pneumonia - Completed course of azithromycin 11/14 PLAN: - Continue nasal cannula as needed, wean oxygen as able maintain SPO2 >92% - Follow infectious workup - Ceftriaxone completing today for 5-day course ALONZO on CKD 3 (POA) Hyperkalemia (POA) Hyperphosphatemia (POA) - Baseline Creatinine appears to be around 1.0 in 2023, 9 on admission to OSH, now at 3.6 after 2.5L IVF resuscitation - Renal U/S with bilateral cysts, no hydronephrosis - K+ 6.1 on admission to , EKG with NSR with RBBB; received hyperK treatment x1 - UA w/ hyaline casts, calcium oxalate crystals - Renal US with 1.7cm cyst on right kidney, several cysts up to 10.2cm on left kidney PLAN: - Avoid NSAIDS/nephrotoxic agents and renally dose medications - Monitor Ins/Outs, volume status, and electrolytes Levothyroxine (POA) - Continue home levothyroxine HTN (POA) - Home meds: Amlodipine, valsartan PLAN: - Continue home Valsartan - Increase and continue home Amlodipine GERD (POA) - Continue home protonix SCC of left medial cathus, s/p resection History of unknown primary neck Ca (POA) - History of multiple cutaneous malignancies: superior nasal sidewall treated in 2019 and 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 - He also had a history of an unknown primary metastatic to the right neck treated at [facility] in [id number] with right neck dissection and radiation therapy. 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 He is sitting at bedside. Review of Systems Objective Physical Exam Last Recorded Vitals Blood pressure (!) 186/85, pulse 61, temperature 37 ??C (98.6 ??F), resp. rate 16, height 1.778 m (5' 10 ), weight 109 kg (240 lb 4.8 oz), SpO2 91%. Recent labs Results from last 7 days Lab Units 11/16/24234611/16/242511/15/24 0017 11/13/24 0158 11/12/24 1848 HEMOGLOBIN g/dL 10.5* 10.2* 9.2* < > 10.9* HEMATOCRIT % 32.6* 32.3* 28.6* < > 33.8* PLATELETS 10*3/uL 166 164 148* < > 172 WBC 10*3/uL 6.59 6.47 6.64 < > 7.08 NEUTROS PCT % -- -- -- -- 85 LYMPHS PCT % -- -- -- -- 7 MONOS PCT % -- -- -- -- 7 EOS PCT % -- -- -- -- 0 < > = values in this interval not displayed. Results from last 7 days Lab Units 11/16/24234611/16/246 11/15/24 0017 11/12/24 1903 11/12/24 1848 SODIUM mmol/L 145 145 145 < > 134* POTASSIUM mmol/L 4.0 4.0 4.1 < > 6.1* CHLORIDE mmol/L 105 107 108* < > 99 CO2 mmol/L 27 27 27 < > 19* BUN mg/dL 21 25* 33* < > 68* CREATININE mg/dL 0.99 0.92 1.12 < > 7.27* AST U/L -- -- -- -- 23 ALT U/L -- -- -- -- 12 ALKALINE PHOSPHATASE U/L -- -- -- -- 84 ALBUMIN g/dL 3.7 -- -- -- 3.7 BILIRUBIN TOTAL mg/dL -- -- -- -- 0.6 GLUCOSE mg/dL 106* 111* 99 < > 116* < > = values in this interval not displayed. Assessment/Plan Principal Problem: Acute renal failure (ARF) (CMS/HCC) Warren Atkinson is a 69 y.o. male with PMHx opioid use, HTN, HLD, obesity, tobacco use 1/2PPD smoker, hypothyroidism, remote head and neck CA, CKD 3 with sCr 1.5 at baseline who presents as transfer to MICU from OSH for evaluation of acute renal failure, shock and respiratory failure. Discussed MICU course and plan of care with MICU physician. Hypoxia (POA) Tobacco Use (POA) Strep pneumonia PNA (POA) - Reports 1 week of productive cough, fever, chills - No baseline oxygen requirement - CXR: with bilateral patchy opacities - VBG 7.16/57/<30/29 on arrival - MRSA nares neg, strep pneumo/legionella neg - Respiratory culture: strep pneumonia - Completed course of azithromycin 11/14 PLAN: - Continue nasal cannula as needed, wean oxygen as able maintain SPO2 >92% - Follow infectious workup - Completed ceftriaxone x 5 days on 11/17/24 ALONZO on CKD 3 (POA) Hyperkalemia (POA) Hyperphosphatemia (POA) - Baseline Creatinine appears to be around 1.0 in 2023, 9 on admission to OSH, now at 3.6 after 2.5L IVF resuscitation - Renal U/S with bilateral cysts, no hydronephrosis - K+ 6.1 on admission to , EKG with NSR with RBBB; received hyperK treatment x1 - UA w/ hyaline casts, calcium oxalate crystals - Renal US with 1.7cm cyst on right kidney, several cysts up to 10.2cm on left kidney PLAN: - Avoid NSAIDS/nephrotoxic agents and renally dose medications - Monitor Ins/Outs, volume status, and electrolytes -Follow Cr Anemia, chronic, normocytic (POA) Uncertain etiology Previously had some iron deficiency Follow up with PCP. Levothyroxine (POA) - Continue home levothyroxine 125 mcg daily HTN (POA) - Home meds: Amlodipine, valsartan PLAN: - Continue home Valsartan 80 mg daily - increased amlodipine to 10mg daily. 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 - He also had a history of an unknown primary metastatic to the right neck treated at [facility] in [id number] with right neck dissection and radiation therapy. 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 PT / OT has seen and recommend home with assistance and outpatient PT/OT Medically Ready for Discharge:Anticipated Tomorrow * Care Plan - Steph Quispe RN - 11/17/2024 8:21 AM EDT Will cont with the plan of care * Progress Notes - Marie Wagner RN - 11/16/2024 3:21 PM EDT Case Management Adult Progress Note Warren Atkinson 69 y.o. male CSN: [id number] Admission: 11/12/2024 6:24 PM Primary Problem: Acute renal failure (ARF) (CMS/HCC) Anticipated Discharge Date: TBD Has Discharge Plans Changed? No Medicare Second Notice: Housing Circumstances: Low Income ( 101-300% Federal Poverty Guideline) Housing Circumstances Action Taken: Additional Comments: Patient resting in bed; wearing supplemental O2 @ 3 liters/nasal cannula. Orders noted for patient to downgrade to Acute care. Case management will continue to follow. Marie Wagner RN * Progress Notes - West Mix III, PA - 11/16/2024 1:05 PM EDT Images from the original note were not included. Pulmonary, Critical Care, & Sleep Medicine MICU PROGRESS NOTE Events of past 24 hours No acute events or issues overnight. Patient remained hemodynamically stable, afebrile, and rested comfortably overnight. He continues to require supplemental oxygen at 2-3 LPM. Home Valsartan restarted for worsening hypertension. Hospital Course: Warren Atkinson is a 69 y.o. male with PMHx opioid use, HTN, HLD, obesity, tobacco use 1/2PPD smoker, hypothyroidism, remote head and neck CA, CKD 3 with sCr 1.5 at baseline who presents as transfer from OSH for evaluation of acute renal failure. Patient originally presented to OSH as a stroke alert. According to EMS, family called because patient was altered and fell out of bed. Upon EMS arrival, they noted flaccid paralysis on left side and pt was GCS 10. Patient was hypotensive and hypoxic and was placed on CPAP and given fluids in route. Patient endorses cough, fevers, shortness of breath. CT head with mild atrophy, no acute intracranial abnormality. Initial workup showed leukocytosis of10k, hgb 10.7, VBG 7.17/48/90 with bicarb 17.2, lactic acid 2.4, sCr 9.2, BUN 68. All electrolytes WNL. CXR with evidence of bilateral pneumonia. CT AP unremarkable other than left kidney cyst measuring 10.6 X 8.8cm. UA negative for nitrites & leukoesterase. Patient received 2L IVF and was started on broad spectrum ABX with Vancomycin, Cefepime and Azithromycin due to concerns for septic shock. On arrival to , patient on 0.1mcg/kg/min of Levophed to maintain stable BP. Patient hypoxic on 6LNC to 81%, VBG obtained revealed mild hypercarbia and patient placed on BIPAP. Bilateral crackles auscultated bilaterally. Patient following commands without focal deficits, however noted to have bilateral tremor in upper extremities. Following admission, had significant improvement in shock with low dose levophed requirements. Antibiotics de-escalated to CAP coverage with azithromycin and rocephin. Renal function continues to improve with volume resuscitation with adequate electrolyte clearance. Patient able to be weaned off Levophed on morning of 11/14. Stress dose steroids stopped. Respiratory culture with streptococcus pneumoniae and being treated with ceftriaxone x 5 days. Patient on nasal cannula and hemodynamically stable. Patient downgraded to acute level care on 11/15. Review of Systems Otherwise, 14 point review of systems completed and negative except as above or in HPI. Last Recorded Vitals Blood pressure (!) 178/73, pulse 73, temperature 36.7 ??C (98.1 ??F), temperature source Oral, resp. rate 18, height 1.778 m (5' 10 ), weight 110 kg (242 lb 1 oz), SpO2 98%. O2 Delivery Method: Nasal cannula Flow: 3 LPM Physical Exam Vitals reviewed. Constitutional: General: He is not in acute distress. Appearance: Normal appearance. He is well-developed. He is obese. He is ill- appearing. He is not toxic-appearing or diaphoretic. Interventions: Nasal cannula in place. HENT: Head: Normocephalic and atraumatic. Mouth/Throat: Mouth: Mucous membranes are moist. Eyes: Extraocular Movements: Extraocular movements intact. Cardiovascular: Rate and Rhythm: Normal rate and regular rhythm. Pulses: Normal pulses. Heart sounds: Normal heart sounds. Pulmonary: Effort: Pulmonary effort is normal. No respiratory distress. Breath sounds: Normal breath sounds. Musculoskeletal: Right lower leg: No edema. Left lower leg: No edema. Skin: General: Skin is warm and dry. Neurological: Mental Status: He is alert and oriented to person, place, and time. Psychiatric: Behavior: Behavior normal. Behavior is cooperative. Current Lines Drains Airway Patient Lines/Drains/Airways Status Active Active LDAs Name Placement date Placement time Site Days Peripheral IV 11/12/24 Right Antecubital 11/12/24 -- Antecubital 4 Results CBC WBC 6.47 Hb 10.2 (L) Plt 164 Hct 32.3 (L) ANC ?? INR ??, PTT ??, Anti-Xa ?? BMP Na 145 Cl 107 BUN 25 (H) Glu 111 (H) K 4.0 Co2 27 Cr 0.92 Ca 9.4 iCa 4.8 Mg 2.0, Phos 2.8 Lactate ?? LFT AST ?? AlkPhos ?? T Prot ?? ALK ?? Bili ?? Alb ?? D.Bili ?? Results from last 7 days Lab Units 11/13/24 0513 11/13/24 0158 HCO3 ART mmol/L 20* 19* O2 SAT, MEASURED % 98 97 Results Procedure Component Value Units Date/Time Blood Culture (Aerobic/Anaerobet Set) [[id number]] Collected: 11/12/24 1848 Order Status: Completed Specimen: Blood from Arm, Right Updated: 11/15/242000 Culture No growth at day 3 Respiratory Culture and Gram Stain [[id number]] (Abnormal) Collected: 11/12/24 2357 Order Status: Completed Specimen: Sputum, Expectorated Updated: 11/15/24 185 Culture Moderate Growth 2+ Mixed upper respiratory tiffanie Comment: The organism value for this result has been updated. These results have been appended to the previously preliminary verified report. 3+ Streptococcus pneumoniae Comment: CAUTION: If your patient has signs and symptoms suggesting meningitis call [phone] (Micro) for appropriate susceptibility results to Penicillin and Ceftriaxone. Susceptibility results listed here are for Streptococcus pneumoniae non-meningitis treatment only. Break points differ for LANDMAN infections. The organism value for this result has been updated. These results have been appended to the previously preliminary verified report. Gram Stain Result Greater than 25 WBC/LPF Fewer than 10 Epithelial cells/LPF Moderate Gram positive rods Moderate Gram positive cocci in pairs Few Yeast Intake and Output Intake/Output Summary (Last 24 hours) at 11/16/2024 1305 Last data filed at 11/16/2024 0800 Gross per 24 hour Intake 480 ml Output 1200 ml Net -720 ml Scheduled Medications atorvastatin, 40 mg, Oral, Nightly cefTRIAXone, 2 g, Intravenous, q24h DULoxetine, 30 mg, Oral, Daily heparin (porcine), 5,000 Units, Subcutaneous, q8h AMY ipratropium-albuterol, 3 mL, Nebulization, q6h levothyroxine, 125 mcg, Oral, q AM montelukast, 10 mg, Oral, Nightly mupirocin, 1 Application, Each Nostril, BID pantoprazole, 40 mg, Oral, Daily polyethylene glycol, 17 g, Oral, Daily senna, 8.6 mg, Oral, Nightly sodium chloride, 10 mL, Intravenous, q12h valsartan, 80 mg, Oral, Daily PRN Medications PRN medications: acetaminophen, glucose OR dextrose OR glucagon (human recombinant), ipratropium-albuterol, sodium chloride, sodium chloride Assessment and Plan Warren Atkinson is a 69 y.o. male with PMHx opioid use, HTN, HLD, obesity, tobacco use 1/2PPD smoker, hypothyroidism, remote head and neck CA, CKD 3 with sCr 1.5 at baseline who presents as transfer to MICU from OSH for evaluation of acute renal failure, shock and respiratory failure. Hypoxia (POA) Tobacco Use (POA) Strep pneumonia PNA (POA) - Reports 1 week of productive cough, fever, chills - No baseline oxygen requirement - CXR: with bilateral patchy opacities - VBG 7.16/57/<30/29 on arrival - MRSA nares neg, strep pneumo/legionella neg - Respiratory culture: strep pneumonia - Completed course of azithromycin 11/14 PLAN: - Continue nasal cannula as needed, wean oxygen as able maintain SPO2 >92% - Follow infectious workup - Continue ceftriaxone x 5 days (stop 11/17) ALONZO on CKD 3 (POA) Hyperkalemia (POA) Hyperphosphatemia (POA) - Baseline Creatinine appears to be around 1.0 in 2023, 9 on admission to OSH, now at 3.6 after 2.5L IVF resuscitation - Renal U/S with bilateral cysts, no hydronephrosis - K+ 6.1 on admission to , EKG with NSR with RBBB; received hyperK treatment x1 - UA w/ hyaline casts, calcium oxalate crystals - Renal US with 1.7cm cyst on right kidney, several cysts up to 10.2cm on left kidney PLAN: - Avoid NSAIDS/nephrotoxic agents and renally dose medications - Monitor Ins/Outs, volume status, and electrolytes Levothyroxine (POA) - Continue home levothyroxine HTN (POA) - Home meds: Amlodipine, valsartan PLAN: - Continue home Valsartan GERD (POA) - Continue home protonix SCC of left medial cathus, s/p resection History of unknown primary neck Ca (POA) - History of multiple cutaneous malignancies: superior nasal sidewall treated in 2019 and 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 - He also had a history of an unknown primary metastatic to the right neck treated at [facility] in [id number] with right neck dissection and radiation therapy. 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 PLAN: - Supportive care Obesity (POA) - BMI 34.7 - Complicates all aspects of care Resolved Issues: - Shock F: Regular diet A: none S: none T: Heparin SQ, SCDs H: HOB > 30 degrees U: PPI (home) G: FSBG per protocol B: Last BM 11/15 I: PIV D: Ceftriaxone (11/17) Code status: FULL CODE Dispo: continue Acute level of care Edited by: West Mix III, PA at 11/16/2024 1317 * Progress Notes - Trista Trammell, PT - 11/16/2024 12:20 PM EDT PHYSICAL THERAPY TREATMENT PATIENT DATA Patient Name Warren Atkinson Session Date 11/16/2024 Total Treatment Time 54 min PT Discharge Recommendations Home with assistance, Outpatient PT PT Equipment Recommendations None PRECAUTIONS Weight Bearing Precautions (if applicable) ROM Restrictions (if applicable) Medical Precautions Yes Medical Precautions: Fall precautions HOME LIVING/SET-UP Lives With Significant other Home Type Mobile home Home Equipment Rolling walker, Cane Home Layout One level, Stairs to enter with rails 3 Bathroom Layout Tub/Shower combo, Grab bars, Handheld shower head Standard Additional Comments PRIOR LEVEL OF FUNCTION Receives help from No assist required prior to admission Level of Mobility Ambulatory- community Mobility Webster Independent gait without device History of Falls No ADL Performance ADL Performance: Independent PRESENTATION Oxygen Oxygen Therapy: None (Room air) Removed oxygen when mobilizing. RN notified. Lines and Tubes telemetry Peripheral IV 11/12/24 Right Antecubital (Active) Pre-Session Sitting in chair, Lines intact, Chair alarm RN approved of session. Post-Session All needs met Bracing (if applicable) SUBJECTIVE PARTICIPANTS IN CARE Visitors Present No, Subjective Report Pt HAS been: * Ambulating in-room distances * Transferring Bed <> Chair since last PT treatment. Pt remains unaware when pt may be discharged from [facility]. 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 Prior to PT's departure: * rest was provided * pt was positioned for comfort * pillow support was provided DELIRIUM SCREENING Plata Agitation Sedation Scale (RASS): Alert and calm Feature 3: Altered Level of Consciousness: Negative Vital Signs Pre-Session During- and/or Post-Session Heart Rate (BPM) - - O2 Saturation (%) 95-96 with 1L of oxygen 90-93 with no supplemental oxygen; room air Blood Pressure (mmHg) - / - - / - Resp Rate (BPM) - - THERAPEUTIC ACTIVITY Treatment Minutes 38 BED MOBILITY Level of Webster Physical/Non- physical Assist Adaptive Equipment Utilized Rolling/ Turning Scooting/ Bridging Supine to Sit Sit to Supine Interventions Did not assess; patient was sitting in chair at beginning of session. TRANSFERS Level of Webster Physical/Non- physical Assist Adaptive Equipment Utilized Sit to Stand Stand-by assist Verbal Cues, Minimal cues (No AD) Stand to sit Stand-by assist Verbal Cues, Minimal cues (No AD) Bed to Chair Stand-by assist Sidesteps Verbal Cues, Minimal cues (No AD) Toilet Transfer Shower Transfer Stand-by assist Verbal Cues, Minimal cues (Shower chair was placed in shower for rest breaks. Grab bars.) Interventions Pt completed multiple STS. Pt deferred needing an assistive device. Pt was given verbal cues for hand placement, sequencing, weight shifting, upright posture, and safety awareness. Pt ambulated into the bathroom to shower. Pt returned to the recliner after he showered. Pt was educatedto sit in the chair for at least one hour to help improve upright tolerance, to strengthen abdominal muscles, for optimal lung function, and to prevent skin breakdown. Pt was positioned with pillows under bilateral arms to prevent skin breakdown on elbows and pillows were placed under legs to floatheels to prevent skin breakdown. BALANCE Postural Appearance Posture: Within Functional Limits Level of Webster Balance Support Interventions Static Sit Supervision No upper extremity support, Feet supported Pt sat unsupported in the chair for ~10 minutes. Dynamic Sit Supervision No upper extremity support, Feet supported Dynamic Sitting-Balance: Anterior/Posterior weight shifts, Lateral weight shifts Pt scooted posteriorly into the chair. Pt was given verbal cues to weight shift from right <>left to improve scooting. Pt donned pants in sitting. Static Stand Supervision No upper extremity supported Pt was given verbal cues for upright posture. Dynamic Stand Standby assist No upper extremity support Pt was given verbal cues to weight shift from their RLE <> LLE to improve weight acceptance before mobilizing. Pt was able to stand at the commode to urinate with no LOB. Pt was given verbal cues to hold on to the grab bar to improve stability. Pt completed ADLs while standing at the sink. Pt was tasked to maintain their balance while reaching out of their ENEDINA to complete ADLs. Pt was given verbal cues to scoot closer to the sink to improvestability. Increased time was needed to set-up bathroom to allow for patient to shower. Pt was able to don/doff clothes with no LOB. Pt stood in shower for ~10 minutes. Pt was able to reach out of his ENEDINA to grab soap with no LOB. Pt was given verbal cues to take rest breaks using the shower chair when neededto conserve energy. Pt reported no shortness of air while showering. Pt was able to navigate a slipp danilo surface with no LOB. GAIT TRAINING Treatment Minutes 16 Interventions PT presence was necessary for: * managing lines * progressing patient ambulation distances * monitoring patient vital sign stability * decreasing patient's risk of falling while progressing pt's distances Level of Webster Distance Adaptive Equipment Utilized Gait Standby assist Pt ambulated 640' on even ground with no rest breaks. No device Gait Analysis/ Training Pt demonstrated decreased josee, decreased arm swing, and decreased step/stride length when ambulating. Pt was given verbal cues for RW management, safety awareness, and upright posture. Educated on self pacing/rest breaks for energy conservation. SpO2 was monitored during his walk due to taking off the supplemental oxygen. His Sp02 consistently read around 90-92. Pt ambulates with a limp at baseline due to having a niranjan in his hip. Standardized Assessments [facility] 6-Clicks Mobility Assessment Difficulty patient has turning over in bed (including adjusting bedclothes, sheets, and blankets)?:None Difficulty patient has sitting down on and standing up from a chair with arms (wheelchair, bedside commode, etc.)?: None Difficulty patient has moving from lying on back to sitting on the side of the bed?: None How much help does the patient need moving to and from a bed to a chair (including a wheelchair)?: None How much help does the patient need to walk in hospital room?: A little How much help does the patient need climbing 3-5 steps with a railing?: Unable AMPAC 6-Clicks Mobility Assessment Total : 20 ASSESSMENT Pt is improving, as noted by: less assistance was required for pt to complete some or all transfers, pt demonstrated improved sitting and/or standing balance, and pt ambulated increased walking distances and with less assistance during this PT treatment compared to last PT treatment. Pt has the following impairments: impaired activity tolerance, gross functional weakness, and impaired balance, which is limiting the pt from performing independent functional mobility. PT educated pt/family about PT POC. Pt will benefit from skilled inpatient PT to improve functional mobility. PT recommends homewith assistance upon discharge. Pt does not need DME for home. Pt would further benefit from havingoutpatient PT. PT RECOMMENDATIONS Discharge Destination Home with assistance, Outpatient PT Discharge Equipment None PLAN Pt may continue to benefit from skilled PT for addressing patient's impairments and reducing patient's participation restrictions and activity limitations. PT GOALS PT GOAL DETAILS DATE ASSESSED STATUS PROGRESS PT Goal 1: Pt will improve AMPAC score equal or greater than 22 to demonstrate improved functional mobility. PT Goal 1 Established Date: 11/13/24 PT Goal 1 Time Frame: 2 weeks PT Goal 2: Pt will ascend/descend CGA steps with 3 to demonstrate being able to safely enter/exit their home. PT Goal 2 Established Date: 11/13/24 PT Goal 2 Time Frame: 2 weeks PT Goal 3: Pt will perform supine <> sit with SBA and HOB flat. PT Goal 3 Established Date: 11/13/24 PT Goal 3 Time Frame: 2 weeks PT Goal 4: Pt will perform STS with SBA and least restrictive AD to decrease caregiver burden. PT Goal 4 Established Date: 11/13/24 PT Goal 4 Time Frame: 2 weeks PT Goal 5: Pt/family will be independent with HEP and discharge recommendations. PT Goal 5 Established Date: 11/13/24 PT Goal 5 Time Frame: 2 weeks Written by Trista Trammell, PT on 11/16/24 at 12:34 PM. * Progress Notes - Rachel Raymundo - 11/16/2024 12:17 PM EDT Occupational Therapy Treatment Patient Name: Warren Atkinson Today's Date: 11/16/2024 OT Discharge Recommendations: Home with assistance Equipment Recommended: None Subjective Patient and RB agreeable to OT treatment as tolerated; Patient requesting to walk ad shower; RN agreeable Participants in Care Family/Caregiver Present: No Presentation Oxygen Therapy: None (Room air) Of note: Patient initially received on 1L NC; RN agreeable for NC removal during activity to assesspatient O2 needs. Patient remains above 90% for duration of session on room air. Lines and Tubes: Telemetry, Intravenous access Pre-Session: Sitting in chair, Lines intact, Chair alarm Pre-Session Comments: RN approved of session. Post-Session: RN notified, Call light in reach, Sitting in chair Post-Session Comments: All needs met; RN aware and agreeable to chair alarm off at end of session Precautions Medical Precautions: Fall precautions Objective Pain Patient with no complaints of pain Delirium Screening Plata Agitation Sedation Scale (RASS): Alert and calm Confusion Assessment Method-ICU (CAM-ICU/PCAM-ICU) Feature 3: Altered Level of Consciousness: Negative Cognition Cognition Overall Cognitive Status: Within Functional Limits Arousal/Alertness: Appropriate responses to stimuli Mood/Behavior: Alert Orientation Level: Oriented X4 Single Step Commands: Consistently, With increased time, With repetition Multi-Step Commands: Consistently, With increased time, With repetition Method of Communication: Verbal Safety Judgment: Good awareness of safety precautions Awareness of Errors: Good awareness of errors made Deficit Awareness: Fully aware of deficits Attention Span: Appears intact SELF-CARE INTERVENTIONS Treatment Minutes (if applicable) 55 Interventions Patient engaged in sequential task training emphasizing functional transitions and movement for increased participation in higher level ADL and functional transfer tasks including bathing, toileting, and household/community mobility as detailed below. Throughout session, OT provided monitoring of vitals to ensure activity tolerance with exertional demands of task and to assess patient's cardiopulmonary response to upright activity. Patient benefited from skilled occupational therapy interventions including: Monitoring of vitals to ensure activity tolerance Provision of increased time frames to support optimal level of pt participation Task/activity modification with grading as needed to achieve safety while also providing appropriate functional challenge Skilled organization and management of medical lines/tubes to reduce fall risk with mobility aspects of ADLs Environmental set-up to ensure safety and accessibility to all needed areas of treatment space BED MOBILITY Level of [place] Physical/Non- physical Assist Adaptive Equipment Utilized Rolling/ Turning Scooting/ Bridging Supine to Sit Sit to Supine Interventions Did not assess; Patient received and left in bedside chair this date . TRANSFERS Level of [place] Physical/Non- physical Assist Adaptive Equipment Utilized Sit to Stand Stand-by assist Verbal Cues, Minimal cues (No AD) Stand to sit Stand-by assist Verbal Cues, Minimal cues (No AD) Bed to Chair Stand-by assist Sidesteps Verbal Cues, Minimal cues (No AD) Toilet Transfer Shower Transfer Stand-by assist Minimal cues, Verbal Cues (shower chair and grab bars as needed) Interventions OT providing patient with verbal cues for hand placement and increased posture, safety and independence during transfer tasks. FUNCTIONAL MOBILITY Level of Webster Distance Adaptive Equipment Utilized Ambulation Standby assist, Additional assist needed for line management 620ft + 15ft No device Comments OT providing patient with verbal and tactile cues for improved upright posture and environmental navigation this date. Patient with slow but safe pace, no overt losses of balance. BALANCE Postural Appearance Posture: Within Functional Limits Level of Webster Balance Support Interventions Static Sit Supervision No upper extremity support, Feet supported Dynamic Sit Supervision No upper extremity support, Feet supported Dynamic Sitting-Balance: Anterior/Posterior weight shifts, Lateral weight shifts Static Stand Supervision No upper extremity supported Dynamic Stand Standby assist No upper extremity support Anterior/Posterior weight shifts, Lateral weight shifts ADL / Self-Care Tasks Level of [place] Adaptive Equipment Utilized Interventions Feeding Grooming Bathing UE Bathing Level of Assistance: Modified independent LE Bathing Level of Assistance: Modified independentShower (in standing and sitting on shower chair as needed*) Shower chair Patient completing bathing tasks in shower with Set Up Assist this date. Completing tasks in standing and sittingon shower chair as needed. Upper Body Dressing Independent To doff soiled/anthony clean gown this date Lower Body Dressing Pants Level of Assistance: Contact guard Sock Level of Assistance: Contact guard For doffing/donning socks/pants/undergarments this date Toileting Setup, SBA For toileting from standing at standard commode IADLs Health Management Community Re-Entry Increased time required for completion of bathing tasks, for skilled organization of lines to prevent fall risk during mobility, for environmental set up for promotion of safe mobility, and for increased patient rest/education throughout session. Assessment Patient responded to OT treatment session focused on ADL and functional transfer tasks well this date with rest as needed and vital signs stable. Patient benefited from OT-initiation of interventionsincluding monitoring of hemodynamic stability in multiple positions, positioning at start and end of session to promote optimal joint alignment, reduce edema, and reduce risk for integumentary issues, and increasing endurance through repetition of mobility and transfer tasks. Patient cooperative throughout session. Patient continues to demo deficits in ADL performance, functional endurance, and functional mobility, and would continue to benefit from skilled inpatient OT treatment to address deficits and increase safety and independence. OT Recommendations Discharge Destination: Home with assistance Discharge Equipment: None Plan Progress with activity as tolerated Goals OT GOAL DETAILS Goal Established Date Time Frame Goal Status OT Goal 1: Pt will complete supine<>sit with SBA. 11/13/24 2 weeks OT Goal 2: Pt will complete grooming/hygiene tasks standing at sink level with SBA with AAD as needed for safety. 11/13/24 2 weeks OT Goal 3: Pt will complete lower body dressing including socks, pants and undergarments with SBA x1 for safety. 11/13/24 2 weeks OT Goal 4: Pt will complete functional mobility to and from toilet and completee toileting hyigene tasks with SBA and AAD for safety. 11/13/24 OT Goal 5: Pt will demonstrate independence with UE strengthening/fine motor HEP to improve strength, endurance and coordination for functional tasks/activities. 11/13/24 2 weeks Written by Rachel Raymundo on 11/16/24 at 1:00 PM. * Care Plan - Steph Quispe RN - 11/16/2024 8:20 AM EDT Will cont with the plan of care * Progress Notes - Krystina Jefferson APRN - 11/15/2024 12:27 PM EDT MICU PROGRESS NOTE Events of past 24 hours: Patient weaned off Levophed gtt yesterday morning. No acute events overnight. Patient remains hemodynamically stable on nasal cannula. Plan to remove central line and oconnell. Downgrade to acute level care. Hospital Course: Warren Atkinson is a 69 y.o. male with PMHx opioid use, HTN, HLD, obesity, tobacco use 1/2PPD smoker, hypothyroidism, remote head and neck CA, CKD 3 with sCr 1.5 at baseline who presents as transfer from OSH for evaluation of acute renal failure. Patient originally presented to OSH as a stroke alert. According to EMS, family called because patient was altered and fell out of bed. Upon EMS arrival, they noted flaccid paralysis on left side and pt was GCS 10. Patient was hypotensive and hypoxic and was placed on CPAP and given fluids in route. Patient endorses cough, fevers, shortness of breath. CT head with mild atrophy, no acute intracranial abnormality. Initial workup showed leukocytosis of10k, hgb 10.7, VBG 7.17/48/90 with bicarb 17.2, lactic acid 2.4, sCr 9.2, BUN 68. All electrolytes WNL. CXR with evidence of bilateral pneumonia. CT AP unremarkable other than left kidney cyst measuring 10.6 X 8.8cm. UA negative for nitrites & leukoesterase. Patient received 2L IVF and was started on broad spectrum ABX with Vancomycin, Cefepime and Azithromycin due to concerns for septic shock. On arrival to , patient on 0.1mcg/kg/min of Levophed to maintain stable BP. Patient hypoxic on 6LNC to 81%, VBG obtained revealed mild hypercarbia and patient placed on BIPAP. Bilateral crackles auscultated bilaterally. Patient following commands without focal deficits, however noted to have bilateral tremor in upper extremities. Following admission, had significant improvement in shock with low dose levophed requirements. Antibiotics de-escalated to CAP coverage with azithromycin and rocephin. Renal function continues to improve with volume resuscitation with adequate electrolyte clearance. Patient able to be weaned off Levophed on morning of 11/14. Stress dose steroids stopped. Respiratory culture with streptococcus pneumoniae and being treated with ceftriaxone x 5 days. Patient on nasal cannula and hemodynamically stable. Patient downgraded to acute level care on 11/15. Review of Systems: Complete 14 point review of systems is negative except for positives documented in HPI Last Recorded Vitals Blood pressure (!) 157/77, pulse 79, temperature 37.1 ??C (98.8 ??F), temperature source Bladder, resp. rate 13, height 1.778 m (5' 10 ), weight 110 kg (242 lb 8.1 oz), SpO2 (!) 87%. Physical Exam GENERAL: adult male in bed, in no acute distress EYES: anicteric sclerae, PERRLA HENT: oropharynx clear with moist mucous membranes and no mucosal ulcerations. NECK/LYMPH: Trachea midline, no thyromegaly or lymphadenopathy RESP: Good air movement, symmetrical chest rise, breath sounds coarse to auscultation. No wheezing.NC CARD: NSR 70's; no murmur, rubs, or gallop Extremities: Nonpitting edema in BUE/BLE; no cyanosis or clubbing GI: No organomegaly or masses. Abdomen is soft, nontender, rounded, and nondistended. BS present x 4 quadrants. : oconnell draining clear, yellow urine SKIN: No rash, ulcers, or subcutaneous nodules NEURO: Alert and oriented x 3, Strong in extremities bilaterally. No focal deficits. Results: Coags: INR Date Value Ref Range Status 11/12/2024 1.0 0.9 - 1.1 Final Prothrombin Time Date Value Ref Range Status 11/12/2024 13.7 12.0 - 14.3 sec Final aPTT Date Value Ref Range Status 07/30/2022 29 25 - 35 sec Final CBC: WBC Count Date Value Ref Range Status 11/15/2024 6.64 3.70 - 10.30 10*3/uL Final HGB Date Value Ref Range Status 11/15/2024 9.2 (L) 13.7 - 17.5 g/dL Final HCT Date Value Ref Range Status 11/15/2024 28.6 (L) 40.0 - 51.0 % Final RBC Count Date Value Ref Range Status 11/15/2024 3.00 (L) 4.60 - 6.10 10*6/uL Final BMP: Sodium, Plasma Date Value Ref Range Status 11/15/2024 145 136 - 145 mmol/L Final Potassium, Plasma Date Value Ref Range Status 11/15/2024 4.1 3.6 - 4.9 mmol/L Final Calcium, Plasma Date Value Ref Range Status 01/18/2017 9.5 8.9 - 10.2 mg/dL Final Chloride, Plasma Date Value Ref Range Status 11/15/2024 108 (H) 97 - 107 mmol/L Final BUN, Plasma Date Value Ref Range Status 11/15/2024 33 (H) 8 - 23 mg/dL Final CO2, Plasma Date Value Ref Range Status 11/15/2024 27 22 - 29 mmol/L Final Creatinine, Plasma Date Value Ref Range Status 11/15/2024 1.12 0.70 - 1.20 mg/dL Final Glucose, Plasma Date Value Ref Range Status 11/15/2024 99 74 - 99 mg/dL Final Magnesium, Plasma Date Value Ref Range Status 11/15/2024 2.2 1.9 - 2.4 mg/dL Final Phosphorus, Plasma Date Value Ref Range Status 11/15/2024 2.0 (L) 2.5 - 4.5 mg/dL Final Add Ca++, LFT- AST, Plasma Date Value Ref Range Status 11/12/2024 23 10 - 50 U/L Final ALT, Plasma Date Value Ref Range Status 11/12/2024 12 10 - 50 U/L Final Alkaline Phosphatase, Plasma Date Value Ref Range Status 11/12/2024 84 40 - 115 U/L Final Total Bilirubin, Plasma Date Value Ref Range Status 11/12/2024 0.6 0.2 - 1.1 mg/dL Final ABG: pH, Arterial Date Value Ref Range Status 11/13/2024 7.27 (L) 7.31 - 7.42 Final pCO2, Arterial Date Value Ref Range Status 11/13/2024 45 32 - 45 mmHg Final pO2, Arterial Date Value Ref Range Status 11/13/2024 95 >80 mmHg Final Base Deficit Date Value Ref Range Status 01/15/2017 5.2 (H) 0 - 2.0 mmol/L Final Base Excess, Venous Date Value Ref Range Status 07/31/2022 -3.1 (L) -2.0 - 3.0 mmol/L Final Bicarbonate, Calculated, Arterial Date Value Ref Range Status 11/13/2024 20 (L) 22 - 26 mmol/L Final FIO2 Date Value Ref Range Status 11/12/2024 60.0 % Final Body Temperature Date Value Ref Range Status 11/12/2024 37.0 Celsius Final VBG: Base Excess/Deficit, Venous Date Value Ref Range Status 11/12/2024 -8.5 (L) -2 - 3 mmol/L Final HCO3, Venous Date Value Ref Range Status 11/12/2024 20.3 (L) 22 - 26 mmol/L Final pCO2, Venous Date Value Ref Range Status 11/12/2024 57 (H) 40 - 55 mm Hg Final pH, Venous Date Value Ref Range Status 11/12/2024 7.16 (LL) 7.32 - 7.43 Final pO2, Venous Date Value Ref Range Status 11/12/2024 <30 25 - 40 mm Hg Final SO2, Measured, Venous Date Value Ref Range Status 07/31/2022 80.3 (H) 65 - 80 % Final pCO2, Temp Correct, Venous Date Value Ref Range Status 01/16/2017 54 40 - 55 mmHg Final pH, Temp Corrected, Venous Date Value Ref Range Status 01/16/2017 7.32 (L) 7.32 - 7.43 Final Lactate: Lactate, Arterial, Whole Blood Date Value Ref Range Status 11/13/2024 0.7 0.5 - 1.6 mmol/L Final Imaging (past 24h): No new imaging. Assessment and Plan Warren Atkinson is a 69 y.o. male with PMHx opioid use, HTN, HLD, obesity, tobacco use 1/2PPD smoker, hypothyroidism, remote head and neck CA, CKD 3 with sCr 1.5 at baseline who presents as transfer to MICU from OSH for evaluation of acute renal failure, shock and respiratory failure. Acute Hypoxic Hypercarbic Respiratory Failure requiring Supplemental Oxygen via Nasal Canula (POA) Tobacco Use (POA) Step pneumonia PNA (POA) - Etiology: pulmonary embolism, CAP, volume overload - Reports 1 week of productive cough, fever, chills - No baseline oxygen requirement - CXR: with bilateral patchy opacities - VBG 7.16/57/<30/29 on arrival - MRSA nares neg, strep pneumo/legionella neg - Respiratory culture: strep pneumonia - Completed course of azithromycin 11/14 PLAN: - Continue nasal cannula as needed, wean oxygen as able maintain SPO2 >92% - Follow infectious workup - Continue ceftriaxone x 5 days (stop 11/17) ALONZO on CKD 3 (POA) Hyperkalemia (POA) Hyperphosphatemia (POA) - Baseline Creatinine appears to be around 1.0 in 2023, 9 on admission to OSH, now at 3.6 after 2.5L IVF resuscitation - Renal U/S with bilateral cysts, no hydronephrosis - K+ 6.1 on admission to , EKG with NSR with RBBB; received hyperK treatment x1 - Improved clearance on labs throughout today - UA w/ hyaline casts, calcium oxalate crystals - Renal US with 1.7cm cyst on right kidney, several cysts up to 10.2cm on left kidney PLAN: - Avoid NSAIDS/nephrotoxic agents and renally dose medications - Monitor Ins/Outs, volume status, and electrolytes Levothyroxine (POA) - Continue home levothyroxine HTN (POA) - Home meds: Amlodipine, valsartan - Restart when medically appropraite GERD (POA) - Continue home protonix SCC of left medial cathus, s/p resection History of unknown primary neck Ca (POA) - History of multiple cutaneous malignancies: superior nasal sidewall treated in 2018 and 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 - He also had a history of an unknown primary metastatic to the right neck treated at [facility] in [id number] with right neck dissection and radiation therapy. 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 Garland and they are in agreement with the plan of care. Pharmacy, respiratory and nursing services were present on rounds. * Care Plan - Steph Quispe RN - 11/15/2024 7:57 AM EDT Will cont with the plan of care * Care Plan - Letty Joseph - 11/14/2024 8:44 PM EDT Problem: Adult Inpatient Plan of Care Goal: Optimal Comfort and Wellbeing Outcome: Ongoing, Progressing Goal: Readiness for Transition of Care Outcome: Ongoing, Progressing Problem: Fall Injury Risk Goal: Absence of Fall and Fall-Related Injury Outcome: Ongoing, Progressing Problem: Airway Clearance Ineffective Goal: Effective Airway Clearance Outcome: Ongoing, Progressing Problem: Mobility Impairment Goal: Optimal Mobility Outcome: Ongoing, Progressing * Progress Notes - Marie Wagner RN - 11/14/2024 3:00 PM EDT Case Management Adult Initial Progress Note Warren Atkinson 69 y.o. male CSN: [id number] Admission: 11/12/2024 6:24 PM Primary Problem: Acute renal failure (ARF) ([facility]) Signaler reviewed chart and spoke with patient significant other, Alysha Rodriguez, to complete this Initial Case Management Assessment. Patient unable to answer questions. PCP: Yovany Walsh MD Emergency Contact: Extended Emergency Contact Information Primary Emergency Contact: Alysha Rodriguez Mobile Relation: Significant Other Preferred language: Romansh Burning Plant Operator needed? No Secondary Emergency Contact: Daren Atkinson Mobile Relation: Son Preferred language: Romansh Burning Plant Operator needed? No Insurance: Primary Visit Coverage Payer Plan Sponsor Code Group Number Group Name HUMANA MEDICARE HUMANA MEDICARE [id number] Primary Visit Coverage Subscriber Subscriber ID Subscriber Name Subscriber SSN Subscriber Address [id number] WARREN ATKINSON [id number] [place] [id number] Patient information: Primary Caregiver: Self Support System: Immediate family Daily Living Activities: Functional Status: Independent Living Arrangements: Spouse/Significant other Type of Residence: Private residence, Single Level (Lives in a mobile home with 3 steps for entry.) [address] [place] [address] ([place]) Current DME: Equipment Currently Used at Home: none Income Information: Income Source: Retired Income/Expense Information: Income meets expenses Current Resources Utilized: None Housing Circumstances-Z Codes: Housing Circumstances (select all that apply): Low Income (101-300% Federal Poverty Guidlines) - Z596 Patient Referred to: Anticipated Discharge Date: TBD Patient's Discharge Goal: Return to PLOF Assistance Available at Discharge: Family Discharge Transport: Family transport Follow Up Transport: Family transport Home Health / Home Infusion / Outpatient Dialysis Services: No Living Will/Advance Directive/Power of Automation Software Engineer /Guardian: No Additional Comments: Patient unable to answer questions at this time. Contacted patient's significant other, Alysha Rodriguez, who is willing to answer questions in order to complete patient's Initial Assessment. Patient and his significant other live in a mobile home with 3 steps for entry. Alysha confirms their address, phone number, no DME in the home and name of patient's PCP. Patient does not haveAdvanced Directives. Patient uses [facility] at [phone]. Role of the supervisor case loading explained to Alysha who verbalizes understanding. Case management will continue to follow. Marie Wagner RN * Progress Notes - Krystina Jefferson, VIVIEN - 11/14/2024 11:46 AM EDT Associated Order(s): Critical Care Post-Procedure Diagnose(s): Shock (CMS/HCC); Acute renal failure with tubular necrosis (CMS/HCC) MICU PROGRESS NOTE Events of past 24 hours: Yesterday able to stop vasopressin and creatine continue to improve. This morning patient on low dose levophed. Plan today to stop Levophed and stop stress dose antibiotics. Will discontinue arterialline today. Review of Systems: Complete 14 point review of systems is negative except for positives documented in HPI Last Recorded Vitals Blood pressure 120/59, pulse 64, temperature 36.7 ??C (98.1 ??F), resp. rate 9, height 1.778 m (5' 10 ), weight 111 kg (243 lb 13.3 oz), SpO2 96%. Physical Exam GENERAL: adult male in bed, in no acute distress EYES: anicteric sclerae, PERRLA HENT: oropharynx clear with moist mucous membranes and no mucosal ulcerations. NECK/LYMPH: Trachea midline, no thyromegaly or lymphadenopathy RESP: Good air movement, symmetrical chest rise, breath sounds coarse to auscultation. No wheezing. CARD: EKG tracing with sinus rhythm; no murmur, rubs, or gallop Extremities: Nonpitting edema in BUE/BLE; no cyanosis or clubbing GI: No organomegaly or masses. Abdomen is soft, nontender, rounded, and nondistended. BS present x 4 quadrants. : clear, yellow urine SKIN: No rash, ulcers, or subcutaneous nodules NEURO: Alert and oriented x 3, Strong in extremities bilaterally. No focal deficits. Results: Coags: INR Date Value Ref Range Status 11/12/2024 1.0 0.9 - 1.1 Final Prothrombin Time Date Value Ref Range Status 11/12/2024 13.7 12.0 - 14.3 sec Final aPTT Date Value Ref Range Status 07/30/2022 29 25 - 35 sec Final CBC: WBC Count Date Value Ref Range Status 11/13/2024 8.42 3.70 - 10.30 10*3/uL Final HGB Date Value Ref Range Status 11/13/2024 9.4 (L) 13.7 - 17.5 g/dL Final HCT Date Value Ref Range Status 11/13/2024 28.6 (L) 40.0 - 51.0 % Final RBC Count Date Value Ref Range Status 11/13/2024 3.07 (L) 4.60 - 6.10 10*6/uL Final BMP: Sodium, Plasma Date Value Ref Range Status 11/14/2024 139 136 - 145 mmol/L Final Potassium, Plasma Date Value Ref Range Status 11/14/2024 4.5 3.6 - 4.9 mmol/L Final Calcium, Plasma Date Value Ref Range Status 01/18/2017 9.5 8.9 - 10.2 mg/dL Final Chloride, Plasma Date Value Ref Range Status 11/14/2024 104 97 - 107 mmol/L Final BUN, Plasma Date Value Ref Range Status 11/14/2024 40 (H) 8 - 23 mg/dL Final CO2, Plasma Date Value Ref Range Status 11/14/2024 24 22 - 29 mmol/L Final Creatinine, Plasma Date Value Ref Range Status 11/14/2024 1.47 (H) 0.70 - 1.20 mg/dL Final Glucose, Plasma Date Value Ref Range Status 11/14/2024 155 (H) 74 - 99 mg/dL Final Magnesium, Plasma Date Value Ref Range Status 11/13/2024 2.3 1.9 - 2.4 mg/dL Final Phosphorus, Plasma Date Value Ref Range Status 11/13/2024 2.3 (L) 2.5 - 4.5 mg/dL Final Add Ca++, LFT- AST, Plasma Date Value Ref Range Status 11/12/2024 23 10 - 50 U/L Final ALT, Plasma Date Value Ref Range Status 11/12/2024 12 10 - 50 U/L Final Alkaline Phosphatase, Plasma Date Value Ref Range Status 11/12/2024 84 40 - 115 U/L Final Total Bilirubin, Plasma Date Value Ref Range Status 11/12/2024 0.6 0.2 - 1.1 mg/dL Final ABG: pH, Arterial Date Value Ref Range Status 11/13/2024 7.27 (L) 7.31 - 7.42 Final pCO2, Arterial Date Value Ref Range Status 11/13/2024 45 32 - 45 mmHg Final pO2, Arterial Date Value Ref Range Status 11/13/2024 95 >80 mmHg Final Base Deficit Date Value Ref Range Status 01/15/2017 5.2 (H) 0 - 2.0 mmol/L Final Base Excess, Venous Date Value Ref Range Status 07/31/2022 -3.1 (L) -2.0 - 3.0 mmol/L Final Bicarbonate, Calculated, Arterial Date Value Ref Range Status 11/13/2024 20 (L) 22 - 26 mmol/L Final FIO2 Date Value Ref Range Status 11/12/2024 60.0 % Final Body Temperature Date Value Ref Range Status 11/12/2024 37.0 Celsius Final VBG: Base Excess/Deficit, Venous Date Value Ref Range Status 11/12/2024 -8.5 (L) -2 - 3 mmol/L Final HCO3, Venous Date Value Ref Range Status 11/12/2024 20.3 (L) 22 - 26 mmol/L Final pCO2, Venous Date Value Ref Range Status 11/12/2024 57 (H) 40 - 55 mm Hg Final pH, Venous Date Value Ref Range Status 11/12/2024 7.16 (LL) 7.32 - 7.43 Final pO2, Venous Date Value Ref Range Status 11/12/2024 <30 25 - 40 mm Hg Final SO2, Measured, Venous Date Value Ref Range Status 07/31/2022 80.3 (H) 65 - 80 % Final pCO2, Temp Correct, Venous Date Value Ref Range Status 01/16/2017 54 40 - 55 mmHg Final pH, Temp Corrected, Venous Date Value Ref Range Status 01/16/2017 7.32 (L) 7.32 - 7.43 Final Lactate: Lactate, Arterial, Whole Blood Date Value Ref Range Status 11/13/2024 0.7 0.5 - 1.6 mmol/L Final Imaging (past 24h): I personally visualized and interpreted all of the imaging studies below and I agree with formal interpretation. XR Chest 1 View Result Date: 11/14/2024 Worsening airspace disease within right upper lobe. CRITICAL RESULT: No. COMMUNICATION: Per this written report. By electronically signing this report, I, the attending physician, attest that I have personally reviewed the images/data for the above examination(s) and agree with the final edited report. Drafted by Brannon Brown MD on 11/14/2024 8:58 AM Final report signed by Tracie Moran MD on 11/14/2024 9:16 AM Assessment and Plan Warren Atkinson is a 69 y.o. male with PMHx opioid use, HTN, HLD, obesity, tobacco use 1/2PPD smoker, hypothyroidism, remote head and neck CA, CKD 3 with sCr 1.5 at baseline who presents as transfer to MICU from OSH for evaluation of acute renal failure, shock and respiratory failure. Acute Hypoxic Hypercarbic Respiratory Failure requiring Supplemental Oxygen via Nasal Canula (POA) Tobacco Use (POA) CAP (POA) - Etiology: pulmonary embolism, CAP, volume overload - Reports 1 week of productive cough, fever, chills - No baseline oxygen requirement - CXR: with bilateral patchy opacities - VBG 7.16/57/<30/29 on arrival - MRSA nares neg, strep pneumo/legionella neg PLAN: - Continue nasal cannula as needed, wean oxygen as able maintain SPO2 >92% - Follow infectious workup - Empiric ABX: Azithromycin x 3 days (stop 11/14), ceftriaxone x 5 days (stop 11/17) Undifferentiated Shock (POA) - Etiology: sepsis versus hypovolemia, patient with poor PO intake over previous couple days - S/p 2L IVF, received Vancomycin, Cefepime & Azithro at OSH - Hemodynamically unstable requiring vasopressors - UA without evidence of infection - Levo up to 0.4mcg/kg/min, requirements down after additional 500mL IVF PLAN: - Stop levophed - Stop stress dose steroid - Empiric ABX: Azithromycin x 3 days (stop 11/14), ceftriaxone x 5 days (stop 11/17) - Follow infectious workup ALONZO on CKD 3 (POA) Hyperkalemia (POA) Hyperphosphatemia (POA) - Baseline Creatinine appears to be around 1.0 in 2023, 9 on admission to OSH, now at 3.6 after 2.5L IVF resuscitation - Renal U/S with bilateral cysts, no hydronephrosis - K+ 6.1 on admission to , EKG with NSR with RBBB; received hyperK treatment x1 - Improved clearance on labs throughout today - UA w/ hyaline casts, calcium oxalate crystals - Renal US with 1.7cm cyst on right kidney, several cysts up to 10.2cm on left kidney PLAN: - Avoid NSAIDS/nephrotoxic agents and renally dose medications - Monitor Ins/Outs, volume status, and electrolytes Levothyroxine (POA) - Continue home levothyroxine HTN (POA) - Home meds: Amlodipine, valsartan - Restart when medically appropraite GERD (POA) - Continue home protonix SCC of left medial cathus, s/p resection History of unknown primary neck Ca (POA) - History of multiple cutaneous malignancies: superior nasal sidewall treated in 2018 and 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 - He also had a history of an unknown primary metastatic to the right neck treated at [facility] in [id number] with right neck dissection and radiation therapy. 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 PLAN: - Supportive care F- Regular diet A- Tylenol prn S- None T- Heparin SQ, SCDs H- HOB greater than 30 degrees U- PPI (home) G- FSBS per unit protocol, correction dose insulin B- Last BM PROCESS MECHANIC I- PIV, Arterial line (11/12), CVC (11/12) D- Azithromycin x 3 days (stop 11/14), ceftriaxone x 5 days (stop 11/17) Disposition: - FULL CODE - Maintain ICU level care - Patient updated at bedside Edited by: Krystina Jefferson APRN at 11/14/2024 1129 Critical Care Performed by: Krystina Jefferson APRN Authorized by: Krystina Jefferson APRN Critical care provider statement: Critical care time (minutes): 25 Critical care time was exclusive of: Separately billable procedures and treating other patients Critical care was time spent personally by me on the following activities: Development of treatmentplan with patient or surrogate, evaluation of patient's response to treatment, examination of patient, obtaining history from patient or surrogate, review of old charts, ordering and review of radiographic studies, ordering and review of laboratory studies and ordering and performing treatments andinterventions Comments: The patient is critically ill with: shock and ALONZO. They require complex decision making. Time was spent separate of billed procedures and includes the following: rounding, reviewing medical records, diagnostic imaging, reviewing tests, adjusting mechanical ventilation, vasopressor medications. The patient was seen on rounds with pulmonary critical care physician, Dr. Lucero and they are inagreement with the plan of care. Pharmacy, respiratory and nursing services were present on rounds. Cosigned by Kan Lucero MD at 11/14/2024 5:16 PM EDT Associated attestation - Kan Lucero MD - 11/14/2024 5:16 PM EDT Signature Only * Care Plan - Kasandra Dodson RN - 11/14/2024 8:34 AM EDT Problem: Adult Inpatient Plan of Care Goal: Plan of Care Review Outcome: Ongoing, Progressing Goal: Patient-Specific Goal (Individualized) Outcome: Ongoing, Progressing Goal: Absence of Hospital-Acquired Illness or Injury Outcome: Ongoing, Progressing Goal: Optimal Comfort and Wellbeing Outcome: Ongoing, Progressing Goal: Readiness for Transition of Care Outcome: Ongoing, Progressing Problem: Fall Injury Risk Goal: Absence of Fall and Fall-Related Injury Outcome: Ongoing, Progressing Problem: Airway Clearance Ineffective Goal: Effective Airway Clearance Outcome: Ongoing, Progressing Problem: Mobility Impairment Goal: Optimal Mobility Outcome: Ongoing, Progressing Problem: Functional Deficit Goal: Improved Balance and Postural Control Outcome: Ongoing, Progressing Goal: Optimal Cognitive Function Outcome: Ongoing, Progressing Goal: Optimal Coordination Outcome: Ongoing, Progressing Goal: Improved Muscle Strength Outcome: Ongoing, Progressing Goal: Improved Muscle Tone Outcome: Ongoing, Progressing Goal: Optimal Range of Motion Outcome: Ongoing, Progressing Goal: Compensation for Sensory Deficit Outcome: Ongoing, Progressing * Care Plan - Letty Joseph - 11/13/2024 7:16 PM EDT Problem: Adult Inpatient Plan of Care Goal: Plan of Care Review Outcome: Ongoing, Progressing Flowsheets (Taken 11/13/2024 1916) Progress: improving Plan of Care Reviewed With: patient Problem: Fall Injury Risk Goal: Absence of Fall and Fall-Related Injury Outcome: Ongoing, Progressing Problem: Mobility Impairment Goal: Optimal Mobility Outcome: Ongoing, Progressing Problem: Fall Injury Risk Goal: Absence of Fall and Fall-Related Injury Outcome: Ongoing, Progressing * Progress Notes - Rachel Raymundo - 11/13/2024 9:43 AM EDT Occupational Therapy Evaluation Patient Name: Warren Atkinson Today's Date: 11/13/2024 OT Discharge Recommendations: Home with assistance (pending increased mobility) Equipment Recommended: (TBD) History Warren Atkinson is 69 y.o. male admitted 11/12/2024 for work-up of Acute renal failure (ARF) ([facility] Hospital Course 1. Acute renal failure with tubular necrosis ([facility]) 2. Acute renal failure, unspecified acute renal failure type ([facility]) 3. Shock ([facility]) 4. Community acquired pneumonia, unspecified laterality 5. Hyperkalemia Procedures Past Medical History Patient has a past medical history of ALONZO (acute kidney injury) ([facility]) (07/31/2022), Arthritis, Basal cell carcinoma (BCC), Basal cell carcinoma (BCC), Dental disease, Dermatochalasis, Early dry stage nonexudative age-related macular degeneration of both eyes (02/17/2021), Exercise tolerance finding (09/10/2021), Facial lesion (02/18/2021), GERD (gastroesophageal reflux disease), Glaucoma suspect of both eyes (02/17/2021), Hypertension, Hypothyroidism, Macular degeneration, Seizure ([facility]), Squamous cell carcinoma of bridge of nose (11/14/2020), Squamous cell carcinoma of head and neck ([facility]) (01/15/2005), Squamous cell carcinoma of skin of nose (07/18/2015), and Stomach ulcer (2020). Past Surgical History Patient has a past surgical history that includes Knee surgery; Skin biopsy; Portacath placement; Feeding Tube Placement; Modified radical neck dissection; Rotator cuff repair; and Eye surgery (Left). Precautions Medical Precautions: Fall precautions Subjective Patient and RN agreeable to OT evaluation and treatment as tolerated Participants in Care Family/Caregiver Present: No Burning Plant Operator: Not Applicable Presentation Oxygen Therapy: Supplemental oxygen O2 Delivery Method: High flow nasal cannula FiO2 (%): 45 % O2 Flow Rate (L/min): 30 L/min Lines and Tubes: Telemetry, Art Line, Central Line, Intravenous access, Urinary catheter Pre-Session: Lines intact, Head of bed elevated, Side lying left Pre-Session Comments: Patient and RN agreeable to OT evaluation and treatment as tolerated Post-Session: Lines intact, Head of bed elevated, RN notified, Supine, Call light in reach, SCDs applied Post-Session Comments: Patient positioned for saffety and comfort; all needs met/within reach; RN aware Home Living/Set-Up Lives With: Significant other Home Type: Mobile home Home Adaptive Equipment: Rolling walker, Cane Home Layout: One level, Stairs to enter with rails Number of Stairs: 3 Bathroom: Tub/Shower: Tub/Shower combo, Grab bars, Handheld shower head Bathroom: Toilet: Standard Prior Level of Function Receives Help From: No assist required prior to admission Level of Mobility: Ambulatory- community Mobility Webster: Independent gait without device History of Falls: No ADL Performance: Independent Patient/Family Goals Patient with no reported goals at this time Objective Pain Patient with no complaints of pain Delirium Screening Plata Agitation Sedation Scale (RASS): Alert and calm Confusion Assessment Method-ICU (CAM-ICU/PCAM-ICU) Feature 3: Altered Level of Consciousness: Negative Cognition Overall Cognitive Status: Within Functional Limits Arousal/Alertness: Appropriate responses to stimuli Mood/Behavior: Alert Orientation Level: Oriented X4 Single Step Commands: Consistently, With increased time, With repetition Multi-Step Commands: Consistently, With increased time, With repetition Method of Communication: Verbal Safety Judgment: Good awareness of safety precautions Awareness of Errors: Good awareness of errors made Deficit Awareness: Fully aware of deficits Attention Span: Appears intact Problem Solving: Able to problem solve independently Vision - Complex Assessment Baseline Vision: Glasses reading Patient Visual Report: Patient reports no changes in vision from baseline Right Upper Extremity Examination RUE Assessment: Within Functional Limits Manual Muscle Testing - RUE: Within functional limits Light Touch: Right Upper Extremity: Intact Left Upper Extremity Examination LUE Assessment: Within Functional Limits Manual Muscle Testing - LUE: Within functional limits Light Touch: Left Upper Extremity: Intact Right Lower Extremity Examination RLE Assessment: Within Functional Limits Manual Muscle Testing - RLE: Within functional limits Light Touch: Right Lower Extremity: Intact Left Lower Extremity Examination LLE Assessment: Within Functional Limits Manual Muscle Testing: Within functional limits Light Touch: Left Lower Extremity: Intact SELF-CARE INTERVENTIONS Treatment Minutes (if applicable) 13 Interventions Patient engaged in sequential task training emphasizing functional transitions and movement for increased participation in higher level ADL and functional transfer tasks including bathing, toileting, and household/community mobility as detailed below. Throughout session, OT provided monitoring of vitals to ensure activity tolerance with exertional demands of task and to assess patient's cardiopulmonary response to upright activity. Patient benefited from skilled occupational therapy interventions including: Monitoring of vitals to ensure activity tolerance MIN verbal and tactile cues to facilitate proper body mechanics and modified body mechanics during functional tasks Provision of increased time frames to support optimal level of pt participation Task/activity modification with grading as needed to achieve safety while also providing appropriate functional challenge Skilled organization and management of medical lines/tubes to reduce fall risk with mobility aspects of ADLs Environmental set-up to ensure safety and accessibility to all needed areas of treatment space BED MOBILITY Level of Webster Physical/Non- physical Assist Adaptive Equipment Utilized Rolling/ Turning Scooting/ Bridging Contact guard Verbal Cues, Minimal cues Bed rails Supine to Sit Contact guard Verbal Cues, HOB elevated, Minimal cues Bed rails Sit to Supine Contact guard Verbal Cues, HOB elevated, Minimal cues Bed rails Interventions OT providing patient with verbal and tactile cues for initiation of bed mobility including advancing BLE to edge of bed and reaching contralaterally to opposite bedrail for increased independence with good carryover; fatigue creating the need for increased physical assistance at this t arlette. TRANSFERS Level of Webster Physical/Non- physical Assist Adaptive Equipment Utilized Sit to Stand Contact guard Verbal Cues, Minimal cues Hand held assist Stand to sit Contact guard Verbal Cues, Minimal cues Hand held assist Bed to Chair Toilet Transfer Shower Transfer Interventions OT providing patient with verbal cues for increased posture, safety and independence with transfer tasks. FUNCTIONAL MOBILITY Level of Webster Distance Adaptive Equipment Utilized Ambulation Patient took side steps to the HOB on even ground. Comments Increased mobility limited by line length and request for patient to end session in bed for scan BALANCE Postural Appearance Posture: Within Functional Limits Level of Webster Balance Support Interventions Static Sit Standby assist No upper extremity support, Feet supported Dynamic Sit Contact guard No upper extremity support, Feet supported Dynamic Sitting-Balance: Lateral weight shifts, Anterior/Posterior weight shifts Static Stand Contact guard No upper extremity supported Dynamic Stand Minimum assistance No upper extremity support ADL / Self-Care Tasks Level of Webster Adaptive Equipment Utilized Interventions Feeding Supervision, Standby assist, Setup anticipated Grooming Patient provided with Set Up Assist for washing face and oral hygiene via oral care suction toothette in unsupported sitting at edge of bed Bathing UE Bathing Level of Assistance: Modified independent LE Bathing Level of Assistance: Modified independent anticipated in sitting Upper Body Dressing Supervision, SBA, Setup anticipated Lower Body Dressing Pants Level of Assistance: Contact guard Sock Level of Assistance: Contact guard Shoe Level of Assistance: Contact guard anticipated Toileting Minimum assistance anticipated IADLs Health Management Community Re-Entry Standardized Assessments [facility] 6-Click Daily Activities Help from Other: Don/Doff Regular Lower Body Clothings: Little Help From Other: Bathing: Little Help From Other: Toileting: Little Help From Other: Don/Doff Upper Body Clothings: None Help From Other: Grooming: None Help From Other: Eating Meals: None [facility] 6 Click - Daily Activities Score: 21 Assessment Patient responded to OT evaluation and treatment session focused on ADL and functional transfer tasks well this date with rest as needed and vital signs stable. Patient benefited from OT-initiation of interventions including monitoring of hemodynamic stability in multiple positions, positioning at start and end of session to promote optimal joint alignment, reduce edema, and reduce risk for integumentary issues, and increasing endurance through repetition of bed mobility and transfer tasks. Patient cooperative throughout session, however, remains limited by fatigue with all movement at this time. Patient continues to demo deficits in ADL performance, functional endurance, and functional mobility, and would continue to benefit from skilled inpatient OT treatment to address deficits and increase safety and independence. OT Findings: Impaired ADL performance, Impaired IADL performance, Decreased endurance/ventilation/gas exchange, Impaired functional mobility, Impaired postural/trunk control Evaluation/Treatment Tolerance: Treatment limited secondary to medical complications (Comment) Rehab Potential: Good, to achieve stated therapy goals Barriers to Discharge: Comorbidities Eval Complexity Occupational Profile: Review of medical/therapy records and extensive additional review of physical, cognitive, or psychosocial history Performance Deficits: Activities of daily living (ADLs), Instrumental activities of daily living (IADLs), Leisure, Social participation, Habits, Routines, Roles, Personal, Physical, Social Clinical Decision Making: Moderate Overall Eval complexity: Moderate OT Recommendations Discharge Destination: Home with assistance (pending increased mobility) Discharge Equipment: (TBD) Plan Planned OT Interventions ADL retraining, IADL retraining, Balance training, Bed mobility Training, Fine motor coordination training, Motor coordination training, ROM, Strengthening, Stretching, Transfer training, Functional mobility, Caregiver education OT Frequency 2 - 5 times per week OT Duration 2 weeks Goals OT GOAL DETAILS Time Frame OT Goal 1: Pt will complete supine<>sit with SBA. 2 weeks OT Goal 2: Pt will complete grooming/hygiene tasks standing at sink level with SBA with AAD as needed for safety. 2 weeks OT Goal 3: Pt will complete lower body dressing including socks, pants and undergarments with SBA x1 for safety. 2 weeks OT Goal 4: Pt will complete functional mobility to and from toilet and completee toileting hyigene tasks with SBA and AAD for safety. 2 weeks OT Goal 5: Pt will demonstrate independence with UE strengthening/fine motor HEP to improve strength, endurance and coordination for functional tasks/activities. 2 weeks Written by Rachel Raymundo on 11/13/24 at 9:57 AM. * Progress Notes - Trista Trammell, PT - 11/13/2024 9:42 AM EDT PHYSICAL THERAPY EVALUATION Patient Name Warren Atkinson Session Date 11/13/2024 Total Treatment Time 24 min PT Discharge Recommendations Home with assistance Equipment Recommendations (Pending mobility progress) HISTORY Warren Atkinson is 69 y.o. male admitted 11/12/2024 for work-up of Acute renal failure (ARF) ([facility]). Hospital Course 1. Acute renal failure with tubular necrosis ([facility]) 2. Acute renal failure, unspecified acute renal failure type ([facility]) 3. Shock ([facility]) 4. Community acquired pneumonia, unspecified laterality 5. Hyperkalemia Procedures (if applicable) Past Medical History Patient has a past medical history of ALONZO (acute kidney injury) ([facility]) (07/31/2022), Arthritis, Basal cell carcinoma (BCC), Basal cell carcinoma (BCC), Dental disease, Dermatochalasis, Early dry stage nonexudative age-related macular degeneration of both eyes (02/17/2021), Exercise tolerance finding (09/10/2021), Facial lesion (02/18/2021), GERD (gastroesophageal reflux disease), Glaucoma suspect of both eyes (02/17/2021), Hypertension, Hypothyroidism, Macular degeneration, Seizure ([facility]), Squamous cell carcinoma of bridge of nose (11/14/2020), Squamous cell carcinoma of head and neck ([facility]) (01/15/2005), Squamous cell carcinoma of skin of nose (07/18/2015), and Stomach ulcer (2020). Past Surgical History Patient has a past surgical history that includes Knee surgery; Skin biopsy; Portacath placement; Feeding Tube Placement; Modified radical neck dissection; Rotator cuff repair; and Eye surgery (Left). PRECAUTIONS Weight Bearing Precautions (if applicable) ROM Restrictions (if applicable) Medical Precautions Yes Medical Precautions: Fall precautions SUBJECTIVE PARTICIPANTS IN CARE Visitors Present No Subjective Report Pt has NOT been: * Ambulating hallway distances * Ambulating in-room distances * Transferring Bed <> Chair since being admitted to the hospital. Pt remains unaware when pt may be discharged from [facility]. Burning Plant Operator (if applicable) Not Applicable HOME LIVING/SET-UP Lives With Significant other Home Type Mobile home Home Equipment Rolling walker, Cane Home Layout One level, Stairs to enter with rails Number of Stairs: 3 Bathroom Layout Bathroom: Tub/Shower: Tub/Shower combo, Grab bars, Handheld shower head Bathroom: Toilet: Standard Additional Comments PRIOR LEVEL OF FUNCTION Assist at Home No assist required prior to admission Level of Mobility Ambulatory- community Mobility Webster Independent gait without device History of Falls No Overall ADL Performance Independent Additional ADL Performance Detail PATIENT/FAMILY GOALS Patient/Family Goals Statement: To return home OBJECTIVE / INTERVENTIONS PRESENTATION Oxygen Oxygen Therapy: Supplemental oxygen O2 Delivery Method: High flow nasal cannula FiO2 (%): 45% O2 Flow Rate (L/min): 30 L/min Lines and Tubes telemetry Arterial Line 11/12/24 Left Radial (Active) CVC Triple Lumen 11/12/24 Left Non-tunneled Internal jugular (Active) Urethral Catheter Temperature probe 16 Fr. (Active) Peripheral IV 11/12/24 Anterior;Distal;Left;Upper Arm (Active) Peripheral IV 11/12/24 Right Antecubital (Active) Pre-Session Lines intact, Head of bed elevated, Side lying left Patient and RN agreeable to OT evaluation and treatment as tolerated Post-Session Lines intact, Head of bed elevated, RN notified, Supine, Call light in reach, SCDs applied Patient positioned for saffety and comfort; all needs met/within reach; RN aware Bracing (if applicable) PAIN Pt was without complaints of pain throughout the PT treatment. Prior to PT's departure: * rest was provided * pt was positioned for comfort * pillow support was provided DELIRIUM SCREENING Plata Agitation Sedation Scale (RASS): Alert and calm Confusion Assessment Method-ICU (CAM-ICU/PCAM-ICU) Feature 3: Altered Level of Consciousness: Negative COGNITION Overall Cognitive Status Within Functional Limits Arousal/Alertness Appropriate responses to stimuli Mood/Behavior Alert Orientation Oriented x4 Command Following Single Step Commands: Consistently, With increased time, With repetition Multi-Step Commands: Consistently, With increased time, With repetition Method of Communication Verbal Additional Observations Safety Judgment: Good awareness of safety precautions Awareness of Errors: Good awareness of errors made Deficit Awareness: Fully aware of deficits Attention Span: Appears intact Problem Solving: Able to problem solve independently MOTOR EXAMINATION RANGE OF MOTION Right Upper Within Functional Limits Left Upper Within Functional Limits Right Lower Within Functional Limits Left Lower Within Functional Limits MANUAL MUSCLE TESTING Right Upper Within functional limits Left Upper Within functional limits Right Lower Within functional limits Left Lower Within functional limits SENSORY EXAMINATION Light Touch Sensation Right Upper Intact Left Upper Intact Right Lower Intact Left Lower Intact THERAPEUTIC ACTIVITY Treatment Minutes 14 BED MOBILITY Level of Webster Physical/Non- physical Assist Adaptive Equipment Utilized Rolling/ Turning Scooting/ Bridging Contact guard Verbal Cues, Minimal cues Bed rails Supine to Sit Contact guard Verbal Cues, HOB elevated, Minimal cues Bed rails Sit to Supine Contact guard Verbal Cues, HOB elevated, Minimal cues Bed rails Interventions Pt was given verbal cues for hand placement, sequencing, safety awareness, breathing techniques, and log rolling to improve bed mobility. Pt was educated to log roll to their left to transition into sitting. TRANSFERS Level of Webster Physical/Non- physical Assist Adaptive Equipment Utilized Sit to Stand Contact guard Verbal Cues, Minimal cues Hand held assist Stand to sit Contact guard Verbal Cues, Minimal cues Hand held assist Bed to Chair Toilet Transfer Shower Transfer Interventions Pt completed 1 STS. Pt deferred needing an assistive device. Pt was given verbal cuesfor hand placement, trunk control, sequencing, weight shifting, upright posture, and safety awareness. Pt was educated to sit in the chair for at least one hour later in the day to help improve upright tolerance, to strengthen abdominal muscles, for optimal lung function, and to prevent skin breakdown. BALANCE Postural Appearance Posture: Within Functional Limits Level of Webster Balance Support Interventions Static Sit Standby assist No upper extremity support, Feet supported Pt sat unsupported at the EOB for ~8 minutes. Dynamic Sit Contact guard No upper extremity support, Feet supported Dynamic Sitting-Balance: Lateral weight shifts, Anterior/Posterior weight shifts Pt scooted anteriorly to the EOB. Pt was given verbal cues to weight shift from right <> leftto improve scooting. Pt was given verbal cues for hand placement. , Pt maintained balance while MMTwas performed. Pt was given verbal cues to maintain sitting upright and to not lean posteriorly. Static Stand Contact guard No upper extremity supported Patient stood for ~1 minute. Patient was given verbal cues while in standing. Patient was given tactile cues at pelvis to facilitate hip extension to improve upright posture. Dynamic Stand Minimum assistance No upper extremity support Pt was given verbal cues to weight shift from their RLE <> LLE to improve weight acceptance before mobilizing. AMBULATION Level of [place] Distance Adaptive Equipment Utilized Ambulation Contact guard assist Patient took side steps to the HOB on even ground. Hand held assist Apparatus: None Comments Pt demonstrated decreased josee, decreased arm swing, decreased endurance, and decreasedfoot clearance when ambulating. Pt was given verbal cues for safety awareness and upright posture. Educated on self pacing/rest breaks for energy conservation. PT presence was necessary for: * managing lines * monitoring patient vital sign stability THERAPEUTIC EXERCISE Treatment Minutes In Sitting - Unsupported position, pt performed x10 reps of the following exercises bilaterally: * Glut Sets x2-3 sec holds * Long Arc Quads * Ankle Pumps Verbal cuing and assistance was required for proper technique and for maximizing muscle contractibility and strength. STANDARDIZED ASSESSMENTS [facility] 6-Clicks Mobility Assessment Difficulty patient has turning over in bed (including adjusting bedclothes, sheets, and blankets)?:None Difficulty patient has sitting down on and standing up from a chair with arms (wheelchair, bedside commode, etc.)?: A little Difficulty patient has moving from lying on back to sitting on the side of the bed?: None How much help does the patient need moving to and from a bed to a chair (including a wheelchair)?: A little How much help does the patient need to walk in hospital room?: A little How much help does the patient need climbing 3-5 steps with a railing?: Unable [facility] 6-Clicks Mobility Assessment Total : 18 ASSESSMENT PT FINDINGS Impairments (if identified) Decreased endurance, ventilation, and/or gas exchange, Impaired functional mobility/transfers, Impaired balance, Impaired gait dynamics/performance Activity Limitations (if identified) Inability to ambulate community distances, Inability to ambulate independently, Inability to complete ADLs independently, Inability to transfer independently, Inability to ambulate household distances Participation Restrictions (if identified) Self-care, Home management, Community leisure Barriers to Discharge (if identified) Comorbidities PT Diagnosis Impaired Functional Mobility Additional Observations Activity Tolerance: Tolerates 10 - 20 min activity with multiple rests Evaluation/Treatment Tolerance: Patient limited by fatigue Rehab Potential: Good, to achieve stated therapy goals EVAL COMPLEXITY History Profile 1 - 2 personal factors and/or comorbidities Clinical Presentation Evolving clinical presentation with changing characteristics Clinical Decision Making Moderate complexity PT RECOMMENDATIONS Discharge Destination Home with assistance Discharge Equipment (Pending mobility progress) Additional Recommendations (if applicable) Patient engaged in task-specific training with improved movement efficiency and consistent cue responsiveness. Patient presents with impaired activity tolerance, impaired balance, impaired independence with ADLs, and impaired endurance which translates to the patient being a high falls risk and unable to complete mobility independently. PT educated pt/family about PT POC. Pt will benefit from skilled inpatient PT to improve functional mobility. PT recommends home with assistance upon discharge. PLAN Planned PT Interventions Balance training, Lumbar stabilization, Strengthening, Stretching, Manual therapy techniques, Bed mobility training, Gait training, Postural re-education, Chinese ball technique, Therapeutic play, Neuromuscular re-education, Motor coordination training, Transfer training, Functional Mobility, Caregiver training, Wheelchair management/propulsion training, Joint mobilization, ROM PT Frequency 2 - 5 times per week PT Duration 2 weeks PT GOALS PT GOAL DETAILS Time Frame PT Goal 1: Pt will improve AMPAC score equal or greater than 22 to demonstrate improved functional mobility. 2 weeks PT Goal 2: Pt will ascend/descend CGA steps with 3 to demonstrate being able to safely enter/exit their home. 2 weeks PT Goal 3: Pt will perform supine <> sit with SBA and HOB flat. 2 weeks PT Goal 4: Pt will perform STS with SBA and least restrictive AD to decrease caregiver burden. 2 weeks PT Goal 5: Pt/family will be independent with HEP and discharge recommendations. 2 weeks Written by Trista Trammell, PT on 11/13/24 at 10:00 AM. * Progress Notes - Carolee Green APRN, DNP - 11/13/2024 7:19 AM EDT Associated Order(s): Critical Care Post-Procedure Diagnose(s): Acute renal failure with tubular necrosis (CMS/HCC); Shock (CMS/HCC); Hyperkalemia; Acute hypoxic respiratory failure Images from the original note were not included. Pulmonary, Critical Care, & Sleep Medicine MICU PROGRESS NOTE Events of past 24 hours: Mr. Atkinson was admitted to MICU overnight with shock requiring two vasopressors, as well as metabolic derangements related to ALONZO on CKD. Arrived hypoxic and hypercarbic, requiring HFNC and BIPAP overnight with improvement in respiratory acidosis. Throughout the morning, vasopressin turned off and levophed weaned after additional 500mL IVF (received 2L prior to arrival). Creatinine improving, down to 3.6 from 7.2 on arrival with improved clearance. Plan for today: - q4h BMP Review of Systems: Complete 14 point review of systems is negative except for positives documented in HPI Last Recorded Vitals Blood pressure 123/63, pulse 65, temperature 37.2 ??C (99 ??F), temperature source Bladder, resp. rate 16, height 1.778 m (5' 10 ), weight 109 kg (239 lb 3.2 oz), SpO2 98%. Physical Exam GENERAL: acutely ill-appearing male, no acute distress EYES: anicteric sclerae, PERRLA HENT: oropharynx clear with moist mucous membranes and no mucosal ulcerations. NECK/LYMPH: Trachea midline, no thyromegaly or lymphadenopathy RESP: Good air movement, symmetrical chest rise, breath sounds coarse to auscultation. No wheezing. CARD: EKG tracing with sinus rhythm; no murmur, rubs, or gallop Extremities: Nonpitting edema in BUE/BLE; no cyanosis or clubbing GI: No organomegaly or masses. Abdomen is soft, nontender, rounded, and nondistended. BS present x 4 quadrants. : clear, yellow urine SKIN: No rash, ulcers, or subcutaneous nodules NEURO: Disoriented, requires stimulation to remain awake and participatory. Strong in extremities bilaterally. No focal deficits. Results: CBC WBC 10.29 Hb 10.7 (L) Plt 174 Hct 32.6 (L) ANC 6.03 INR 1.0, PTT ??, Anti-Xa ?? BMP Na 133 (L) Cl 100 BUN 62 (H) Glu 142 (H) K 5.5 (H) Co2 17 (L) Cr 4.97 (H) Ca 8.6 (L) iCa 4.7 Mg 2.1, Phos 5.1 (H) Lactate 0.7 LFT AST 23 AlkPhos 84 T Prot 6.3 ALK 12 Bili 0.6 Alb ?? D.Bili ?? Results from last 7 days Lab Units 11/13/24 0513 11/13/24 0158 HCO3 ART mmol/L 20* 19* O2 SAT, MEASURED % 98 97 Medications azithromycin, 500 mg, Oral, Daily cefepime, 2 g, Intravenous, q24h DULoxetine, 30 mg, Oral, Daily heparin (porcine), 5,000 Units, Subcutaneous, q8h AMY hydrocortisone sodium succinate, 50 mg, Intravenous, q6h insulin regular, 0-5 Units, Subcutaneous, q6h AMY ipratropium-albuterol, 3 mL, Nebulization, q6h levothyroxine, 125 mcg, Oral, q AM montelukast, 10 mg, Oral, Nightly mupirocin, 1 Application, Each Nostril, BID pantoprazole, 40 mg, Intravenous, Daily polyethylene glycol, 17 g, Oral, Daily senna, 8.6 mg, Oral, Nightly sodium chloride, 10 mL, Intravenous, q12h norepinephrine, 0-0.4 mcg/kg/min, Last Rate: 0.08 mcg/kg/min (11/13/24 0618) vasopressin, 0.03 Units/min, Last Rate: 0.03 Units/min (11/13/24 0600) PRN medications: acetaminophen, glucose OR dextrose OR glucagon (human recombinant), ipratropium-albuterol, sodium chloride, sodium chloride Imaging (past 24h): Chest xray personally visualized and interpreted: Concern for bilateral opacities, worse on left. Assessment and Plan Warren Atkinson is a 69 y.o. male with PMHx opioid use, HTN, HLD, obesity, tobacco use 1/2PPD smoker, hypothyroidism, remote head and neck CA, CKD 3 with sCr 1.5 at baseline who presents as transfer to MICU from OSH for evaluation of acute renal failure, shock and respiratory failure. Acute Hypoxic Hypercarbic Respiratory Failure requiring Supplemental Oxygen via HFNC / BIPAP (POA) Tobacco Use (POA) CAP (POA) - Etiology: pulmonary embolism, CAP, volume overload - Reports 1 week of productive cough, fever, chills - No baseline oxygen requirement - CXR: with bilateral patchy opacities - VBG 7.16/57/<30/29 on arrival - MRSA nares neg, strep pneumo/legionella neg PLAN: - Continue HFNC or BIPAP as needed, wean oxygen as able - Follow respiratory culture - Empiric ABX: Azithromycin, de-escalate cefepime to ceftriaxone - De-escalate vanc Undifferentiated Shock (POA) - Etiology: sepsis versus hypovolemia, patient with poor PO intake over previous couple days - S/p 2L IVF, received Vancomycin, Cefepime & Azithro at OSH - Hemodynamically unstable requiring vasopressors - UA without evidence of infection - Levo up to 0.4mcg/kg/min, requirements down after additional 500mL IVF - 2022 ECHO with LVEF > 70% PLAN: - Stop vasopressin, wean levophed; maintain MAP > 65 - Continue stress dose steroid - Continue broad spectrum ABX as above - Full infectious workup pending - TTE pending ALONZO on CKD 3 (POA) Hyperkalemia (POA) Hyperphosphatemia (POA) - Baseline Creatinine appears to be around 1.0 in 2023, on admission to OSH, now at 3.6 after 2.5L IVF resuscitation - Renal U/S with bilateral cysts, no hydronephrosis - K+ 6.1 on admission to , EKG with NSR with RBBB; received hyperK treatment x1 - Improved clearance on labs throughout today - UA w/ hyaline casts, calcium oxalate crystals - Renal US with 1.7cm cyst on right kidney, several cysts up to 10.2cm on left kidney - Likely pre-renal etiology given recent illness and poor PO intake PLAN: - Avoid NSAIDS/nephrotoxic agents and renally dose medications - Monitor Ins/Outs, volume status, and electrolytes - Q4 BMP - No current indication for nephrology consult given improved renal function and adequate clearance Levothyroxine (POA) - Continue home levothyroxine HTN (POA) - Home meds: Amlodipine, valsartan GERD (POA) - Continue home protonix SCC of left medial cathus, s/p resection History of unknown primary neck Ca (POA) - History of multiple cutaneous malignancies: superior nasal sidewall treated in 2019 and 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 - He also had a history of an unknown primary metastatic to the right neck treated at [facility] in [id number] with right neck dissection and radiation therapy. 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 Significant other and two sons called via phone with no answer. Son, Warren Atkinson, returned call and was updated on patient's current status and plan of care. Warren completed ICU consent over phone. Patient was presented in multidisciplinary rounds. All vital signs, laboratory data, radiographic data, and events were discussed with pulmonary critical care attending, Dr. Lucero. Pharmacy support services were present. Critical Care Performed by: Carolee Green APRN, DNP Authorized by: Carolee Green APRN, DNP Critical care provider statement: Critical care time (minutes): 32 Critical care time was exclusive of: Separately billable procedures and treating other patients Critical care was time spent personally by me on the following activities: Development of treatmentplan with patient or surrogate, discussions with consultants, evaluation of patient's response to treatment, examination of patient, obtaining history from patient or surrogate, review of old charts, ordering and review of radiographic studies, ordering and review of laboratory studies, ordering and performing treatments and interventions and ventilator management Comments: This patient is critically ill with acute respiratory failure on noninasive ventilation and shock requiring vasopressors and IVF boluses to maintain vital organ perfusion. Thus far, I have spent the above referenced minutes, devoted solely to this patient managing life/organ supporting interventions that required physical assessment. This includes time spent making adjustments in ventilation settings, vasopressor medications and IV fluid administration, reviewing and adjusting antibiotics and all medications, discussion of patient with consultants and other care providers as well as updating patient and/or family (if patient by virtue of his/her condition is unable to participate in decision making). This does not include time spent performing separately billed procedures. Time is not concurrent with that of other providers. Cosigned by Kan Lucero MD at 11/13/2024 4:00 PM EDT Associated attestation - Kan Lucero MD - 11/13/2024 4:00 PM EDT I attest to being involved in more than half the total time for 35 minutes in patient care. * Care Plan - Janice Chavez RN - 11/13/2024 3:57 AM EDT Problem: Airway Clearance Ineffective Goal: Effective Airway Clearance Outcome: Ongoing, Not Progressing Problem: Adult Inpatient Plan of Care Goal: Plan of Care Review Outcome: Ongoing, Progressing Flowsheets (Taken 11/13/2024 0357) Progress: improving Plan of Care Reviewed With: patient Goal: Readiness for Transition of Care Outcome: Ongoing, Progressing Problem: Fall Injury Risk Goal: Absence of Fall and Fall-Related Injury Outcome: Ongoing, Progressing * H&P - Lucinda Chapin APRN - 11/12/2024 10:26 PM EDTAssociated Order(s): Critical Care Post-Procedure Diagnose(s): Hyperkalemia; Shock (CMS/HCC); Acute renal failure with tubular necrosis (CMS/HCC); Acute renal failure, unspecified acute renal failure type (CMS/HCC); Community acquiredpneumonia, unspecified laterality Chief Complaint AMS History Of Present Illness Warren Atkinson is a 69 y.o. male with PMHx opioid use, HTN, HLD, obesity, tobacco use (1/2PPD),hypothyroidism, remote head and neck CA, CKD 3 with sCr 1.5 at baseline who presents as transfer from OSH for evaluation of acute renal failure. Patient originally presented to OSH as a stroke alert.According to EMS, family called because patient was altered and fell out of bed. Upon EMS arrival, they noted flaccid paralysis on left side and pt was GCS 10. Patient was hypotensive and hypoxic andwas placed on CPAP and given fluids in route. On arrival, patient with improved mentation but with continued hypotension. CT head with mild atrophy, no acute intracranial abnormality. Initial workup showed leukocytosis of 10k, hgb 10.7, VBG 7.17/48/90 with bicarb 17.2, lactic acid 2.4, sCr 9.2, BUN68. All electrolytes WNL. CXR with evidence of bilateral pneumonia, CT AP unremarkable other than left kidney cyst measuring 10.6 X 8.8cm. UA negative for nitrites & leukoesterase. Patient received 2L IVF and was started on broad spectrum ABX with Vancomycin, Cefepime and Azithromycin due to concerns for septic shock. On arrival to , patient on 0.1mcg/kg/min of Levophed to maintain stable BP. States that he was feeling poorly for the past couple days with c/o subjective fevers, cough, shortness of air, sputum production as well as N/V. Patient hypoxic on 6L NC to 81%, VBG obtained revealed mild hypercarbia andpatient placed on BIPAP. Bilateral crackles auscultated bilaterally. Patient following commands without focal deficits, however noted to have bilateral tremor in upper extremities. He will be admitted to MICU for further workup and management. Past Medical History He has a past medical history of ALONZO (acute kidney injury) ([facility]) (07/31/2022), Arthritis, Basal cell carcinoma (BCC), Basal cell carcinoma (BCC), Dental disease, Dermatochalasis, Early dry stage nonexudative age-related macular degeneration of both eyes (02/17/2021), Exercise tolerance finding (), Facial lesion (02/18/2021), GERD (gastroesophageal reflux disease), Glaucoma suspect of both eyes (02/17/2021), Hypertension, Hypothyroidism, Macular degeneration, Seizure ([facility]), Squamous cell carcinoma of bridge of nose (11/14/2020), Squamous cell carcinoma of head and neck ([facility]) (01/15/2005), Squamous cell carcinoma of skin of nose (07/18/2015), and Stomach ulcer (2020). He has no past medical history of Malignant hyperthermia or PONV (postoperative nausea and vomiting). Surgical History He has a past surgical history that includes Knee surgery; Skin biopsy; Portacath placement; Feeding Tube Placement; Modified radical neck dissection; Rotator cuff repair; and Eye surgery (Left). Family History Family History[1] Social History He reports that he has been smoking cigarettes. He has a 4.5 pack-year smoking history. He has never used smokeless tobacco. He reports that he does not currently use alcohol. He reports that he doesnot use drugs. Review of Systems: Complete 14 point review of systems is negative except for positives documented in HPI Allergies Penicillin g Home Medications Prior to Admission medications Medication Sig Start Date End Date Taking? Authorizing Provider amLODIPine (Norvasc) 5 MG tablet Take 1 tablet (5 mg) by mouth 1 (one) time each day. Elisabeth Sharma MD atorvastatin (Lipitor) 40 MG tablet Take 1 tablet (40 mg total) by mouth every night. 08/08/22 08/08/23 Jj Lambert MD DULoxetine (Cymbalta) [address] capsule Take 1 capsule (30 mg) by mouth 1 (one) time each day. Do not crush or chew. Elisabeth Sharma MD gabapentin (Neurontin) 600 MG tablet Take 1 tablet (600 mg) by mouth 3 (three) times a day. 01/23/21 Elisabeth Sharma MD levothyroxine (Synthroid, Levoxyl) 100 MCG tablet Take 1 tablet (100 mcg total) by mouth 1 (one) time each day in the morning. 08/09/22 08/09/23 Jj Lambert MD montelukast (Singulair) 10 MG tablet Take 1 tablet (10 mg) by mouth 1 (one) time each day. 06/22/22 Elisabeth Sharma MD naloxone (Kloxxado) 8 mg/0.1 mL nasal spray 1. Give 1 spray in nostril for no/slow breathing or cannot wake after opioid use 2. Call 911 3. Repeat in other nostril if symptoms continue 07/20/23 Calvin Natarajan MD ondansetron (Zofran) 4 MG tablet Take 1 tablet (4 mg) by mouth every 8 (eight) hours if needed. 09/02/22 Elisabeth Sharma MD oxyCODONE-acetaminophen (Percocet) 7.5-325 MG tablet Take 1 tablet by mouth 4 (four) times a day. 08/25/22 Provider, MD Elisabeth tiZANidine (Zanaflex) 4 MG tablet Take 1 tablet (4 mg) by mouth 2 (two) times a day. 12/17/22 ProviderElisabeth MD valsartan (Diovan) 80 MG tablet Take 1 tablet (80 mg) by mouth 1 (one) time each day. 07/21/23 08/20/23Calvin Natarajan MD Medications Current Medications[2] Physical Exam GENERAL: Chronically ill appearing adult male in no apparent distress EYES: Anicteric sclerae, moist conjunctivae; no lid-lag; PERRLA HENT: Atraumatic; oropharynx clear with moist mucous membranes and no mucosal ulcerations; normal hard and soft palate NECK: Trachea midline; Neck is supple, no thyromegaly or lymphadenopathy . RESP: Airway patent, diffuse rhonchi bilaterally. respirations non labored. No wheezing. CARD: RRR, without murmur, rubs, or gallop Extremities: No edema, cyanosis or clubbing. Pulses palpable +2. GI: No organomegaly or masses. Abdomen is soft, nontender and nondistended. BS present x 4 quadrants. (+) umbilical hernia SKIN: Normal temperature, turgor and texture; no rash, ulcers or subcutaneous nodules : oconnell in place draining CYU NEURO: Alert and oriented, follows commands. No focal deficit Last Recorded Vitals Blood pressure 108/64, pulse 67, temperature 37.9 ??C (100.2 ??F), temperature source Bladder, resp. rate 11, height 1.778 m (5' 10 ), weight 109 kg (240 lb 4.8 oz), SpO2 98%. Radiology Chest xray personally visualized and interpreted: US Renal Complete Result Date: 11/12/2024 Impression: Limited visualization of the kidneys due to bowel gas. Parenchymal thinning. Bilateral renal cysts. No hydronephrosis. CRITICAL RESULT: No. COMMUNICATION: Per this written report. Draftedby Shanna Camargo MD on 11/12/2024 9:50 PM Final report signed by Shanna Camargo MD on 11/12/2024 9:53 PM XR Chest 1 View - bedside Result Date: 11/12/2024 Impression: Bilateral multifocal airspace disease. CRITICAL RESULT: No. COMMUNICATION: Per this written report. Drafted by Shanna Camargo MD on 11/12/2024 7:37 PM Final report signed by Shanna Camargo MD on 11/12/2024 7:38 PM Assessment and Plan Warren Atkinson is a 69 y.o. male with PMHx opioid use, HTN, HLD, obesity, tobacco use 1/2PPD smoker, hypothyroidism, remote head and neck CA, CKD 3 with sCr 1.5 at baseline who presents as transfer from OSH for evaluation of acute renal failure, shock and respiratory failure. Acute Hypoxic Respiratory Failure requiring Supplemental Oxygen (POA) Tobacco Use (POA) CAP (POA) - Etiology: pulmonary embolism, CAP, volume overload - No baseline oxygen requirement - CXR: with bilateral patchy opacities - MRSA nares neg, strep pneumo/legionella neg PLAN: - Respiratory gram stain & culture, comprehensive respiratory panel pending - Continue BIPAP to optimize oxygenation and ventilation; maintain SpO2 >92%. - Empiric ABX: Azithromycin, Cefepime & Vancomycin Undifferentiated Shock (POA) - Etiology: sepsis versus hypovolemia, patient with poor PO intake over previous couple days - S/p 2L IVF, received Vancomycin, Cefepime & Azithro at OSH - Hemodynamically unstable requiring vasopressors - UA without evidence of infection PLAN: - Additional 500ml LR ordered, will hold additional fluids given tenuous respiratory status - Continue broad spectrum ABX as above - Continue Levophed & Vasopressin, titrate to maintain MAP >65 - Continue to follow full infectious workup, tailor ABX as appropriate ALONZO on CKD 3 (POA) Hyperkalemia (POA) - Baseline Creatinine appears to be around 1.0 in 2023, 9 on admission to OSH, down-trending following volume resuscitation - Renal U/S with bilateral cysts, no hydronephrosis - K+6.1 on admission to , EKG with NSR with RBBB PLAN: - Avoid NSAIDS/nephrotoxic agents and renally dose medications - 500 LR bolus as above - Renal lytes pending - Monitor Ins/Outs, volume status, and electrolytes - Treat hyperkalemia with 1 amp of D50 followed by 10 units IV regular insulin, trend with AM labs Levothyroxine (POA) - Continue home levothyroxine HTN (POA) - Home meds: Amlodipine, valsartan GERD (POA) - Continue home protonix SCC of left medial cathus, s/p resection History of unknown primary neck Ca (POA) - History of multiple cutaneous malignancies: superior nasal sidewall treated in 2019 and 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 - He also had a history of an unknown primary metastatic to the right neck treated at [facility] in [id number] with right neck dissection and radiation therapy. 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 PLAN: - Supportive care F- NPO A- PRN APAP S- T- Heparin SQ, SCDs H- HOB greater than 30 degrees U- PPI (home) G- FSBS per unit protocol, correction dose insulin B- Last BM PROCESS MECHANIC I- PIV, Arterial line (11/12), CVC (11/12) D- Azithromycin, Vanc, Cefepime Critical Care Performed by: Lucinda Chapin APRN Authorized by: Lucinda Chapin APRN Critical care provider statement: Critical care time (minutes): 60 Critical care time was exclusive of: Separately billable procedures and treating other patients andteaching time Critical care was time spent personally by me on the following activities: Obtaining history from patient or surrogate, examination of patient, evaluation of patient's response to treatment, discussions with primary provider, development of treatment plan with patient or surrogate, review of old charts, ordering and review of radiographic studies, ordering and review of laboratory studies and ordering and performing treatments and interventions Comments: This patient is critically ill with shock requiring vasopressors and IVF boluses to maintain vital organ perfusion. Thus far, I have spent the above referenced minutes, devoted solely to this patientmanaging life/organ supporting interventions that required physical assessment. This includes time spent making adjustments in vasopressor medications and IV fluid administration, reviewing and adjusting antibiotics and all medications, discussion of patient with consultants and other care providers as well as updating patient and/or family (if patient by virtue of his/her condition is unable to participate in decision making). This does not include time spent performing separately billed proced ures. Time is not concurrent with that of other providers. [1] Family History Problem Relation Name Age of Onset Cancer Mother Hypertension Father Cancer Father Cancer Mother's Sister Cancer Mother's Brother Glaucoma Paternal Grandfather Cancer Paternal Grandfather Anesthesia problems Neg Hx Malig Hyperthermia Neg Hx [2] Current Facility-Administered Medications Medication Dose Route Frequency Provider Last Rate Last Admin acetaminophen (Tylenol) tablet 650 mg 650 mg Oral q4h PRN Lucinda Chapin E, GLUE COOK [START ON 11/13/2024] azithromycin (Zithromax) tablet 500 mg 500 mg Oral Daily Dari, Lucinda E, GLUE COOK [START ON 11/13/2024] cefepime (Maxipime) 2 g in sodium chloride 0.9% 100 mL IVPB (vial adapter required) 2 g Intravenous q24h Kan Lucero MD glucose (Glutose) 40 % oral gel 15 grams of glucose 15 grams of glucose Sublingual q15 min PRN Lucinda Chapin, GLUE COOK Or dextrose 50 % solution 12.5 g 12.5 g Intravenous q15 min PRN Dari, Lucinda E, GLUE COOK 12.5 g at 11/12/242113 Or glucagon (human recombinant) injection 1 mg 1 mg Intramuscular q15 min PRN Lucinda Chapin E, GLUE COOK [START ON 11/13/2024] DULoxetine (Cymbalta) DR capsule 30 mg 30 mg Oral Daily DariLucinda ortiz E, GLUE COOK [START ON 11/13/2024] heparin (porcine) injection 5,000 Units 5,000 Units Subcutaneous q8h [facility] Dari, Lucinda E, GLUE COOK hydrocortisone sod succinate (PF) (Solu-CORTEF) injection 50 mg 50 mg Intravenous q6h Dari, Luicnda E, GLUE COOK 50 mg at 11/12/241956 insulin regular (HumuLIN R,NovoLIN R) 100 units/mL injection - Correction - Standard Dose 0-5 UnitsSubcutaneous q6h AMY Dari, Lucinda E, GLUE COOK ipratropium-albuterol (Duo-Neb) 0.5-2.5 mg/3 mL nebulizer solution 3 mL 3 mL Nebulization q6h PRN Dari, Lucinda E, GLUE COOK ipratropium-albuterol (Duo-Neb) 0.5-2.5 mg/3 mL nebulizer solution 3 mL 3 mL Nebulization q6h Dari, Lucinda E, GLUE COOK 3 mL at 11/12/241956 [START ON 11/13/2024] levothyroxine (Synthroid, Levoxyl) tablet 125 mcg 125 mcg Oral q AM Lucinda Chapin APRN montelukast (Singulair) tablet 10 mg 10 mg Oral Nightly Lucinda Chapin APRN 10 mg at 11/12/242015 mupirocin (Bactroban) 2 % ointment 1 Application 1 Application Each Nostril BID Lucinda Chapin APRN 1 Application at 11/12/242015 norepinephrine 8 mg/250 mL (0.032 mg/mL) infusion 0-0.4 mcg/kg/min Intravenous Titrated Lucinda Chapin APRN 40.9 mL/hr at 11/12/242203 0.2 mcg/kg/min at 11/12/242203 pantoprazole (Protonix) injection 40 mg 40 mg Intravenous Daily Lucinda Chapin APRN 40 mg at 11/12/241957 vancomycin (Vancocin) intermittent dosing 1 each 1 each Intravenous See admin instructions Lucinda Chapin APRN vasopressin (Vasostrict) 20 Units in sodium chloride 0.9 % 100 mL (0.2 Units/mL) infusion 0.03 Units/min Intravenous Continuous Lucinda Chapin APRN 9 mL/hr at 11/12/242199 0.03 Units/min at 11/12/242199 Cosigned by Jj Wagner MD at 11/13/2024 12:06 AM EDT Associated attestation - Jj Wagner MD - 11/13/2024 12:06 AM EDT Signature Only * Procedures - Leila Maria PA - 11/12/2024 9:58 PM EDTAssociated Order(s): Central Line Post-Procedure Diagnose(s): Shock (CMS/HCC) Central Line Performed by: Leila Maria PA Authorized by: Leila Maria PA Consent: Consent obtained: Verbal Consent given by: Healthcare agent Risks, benefits, and alternatives were discussed: yes Risks discussed: Bleeding, arterial puncture and infection Alternatives discussed: Delayed treatment [place] protocol: Procedure explained and questions answered to patient or proxy's satisfaction: yes Relevant documents present and verified: yes Immediately prior to procedure, a time out was called: yes Patient identity confirmed: Arm band and hospital-assigned identification number Attending Supervision?: no Pre-procedure details: Indication(s): central venous access and insufficient peripheral access Hand hygiene: Hand hygiene performed prior to insertion Sterile barrier technique: All elements of maximal sterile technique followed Skin preparation: Chlorhexidine Skin preparation agent: Skin preparation agent completely dried prior to procedure Sedation: Sedation type: None Anesthesia: Anesthesia method: Local infiltration Local anesthetic: Lidocaine 1% w/o epi Procedure details: Location: L internal jugular Patient position: Supine Procedural supplies: Triple lumen Catheter size: 7 Fr Landmarks identified: yes Ultrasound guidance: yes Ultrasound guidance timing: real time Sterile ultrasound techniques: Sterile gel and sterile probe covers were used Number of attempts: 1 Successful placement: yes Post-procedure details: Post-procedure: Dressing applied and line sutured Assessment: Blood return through all ports, free fluid flow, no pneumothorax on x-ray and placementverified by x-ray Procedure completion: Tolerated Cosigned by Lucinda Chapin APRN at 11/13/2024 1:34 AM EDT * Procedures - Lucinda Chapin APRN - 11/12/2024 9:42 PM EDTAssociated Order(s): Arterial line Post-Procedure Diagnose(s): Acute renal failure with tubular necrosis (CMS/HCC) Arterial line Performed by: Lucinda Chapin APRN Authorized by: Lucinda Chapin APRN Consent: Consent obtained: Verbal Consent given by: Guardian, patient and spouse Risks, benefits, and alternatives were discussed: yes Risks discussed: Bleeding, pain, infection, repeat procedure and ischemia [place] protocol: Procedure explained and questions answered to patient or proxy's satisfaction: yes Immediately prior to procedure, a time out was called: yes Patient identity confirmed: Arm band and hospital-assigned identification number Attending Supervision?: no Indications: Indications: hemodynamic monitoring and multiple ABGs Pre-procedure details: Skin preparation: Chlorhexidine Sedation: Sedation type: None Anesthesia: Anesthesia method: None Procedure details: Location: L radial Joe's test performed: yes Needle gauge: 20 G Placement technique: Ultrasound guided Number of attempts: 1 Transducer: waveform confirmed Post-procedure details: Post-procedure: Sterile dressing applied, secured with tape and sutured CMS: Normal Procedure completion: Tolerated well, no immediate complications * Hospital Course - Justo Oconnell MD - 11/12/2024 4:33 PM EDT Warren Atkinson is a 69 y.o. male with PMHx opioid use, HTN, HLD, obesity, tobacco use 1/2PPD smoker, hypothyroidism, remote head and neck CA, CKD 3 with sCr 1.5 at baseline who presents as transfer from OSH for evaluation of acute renal failure. Patient originally presented to OSH as a stroke alert. According to EMS, family called because patient was altered and fell out of bed. Upon EMS arrival, they noted flaccid paralysis on left side and pt was GCS 10. Patient was hypotensive and hypoxic and was placed on CPAP and given fluids in route. Patient endorses cough, fevers, shortness of breath. CT head with mild atrophy, no acute intracranial abnormality. Initial workup showed leukocytosis of10k, hgb 10.7, VBG 7.17/48/90 with bicarb 17.2, lactic acid 2.4, sCr 9.2, BUN 68. All electrolytes WNL. CXR with evidence of bilateral pneumonia. CT AP unremarkable other than left kidney cyst measuring 10.6 X 8.8cm. UA negative for nitrites & leukoesterase. Patient received 2L IVF and was started on broad spectrum ABX with Vancomycin, Cefepime and Azithromycin due to concerns for septic shock. On arrival to , patient on 0.1mcg/kg/min of Levophed to maintain stable BP. Patient hypoxic on 6LNC to 81%, VBG obtained revealed mild hypercarbia and patient placed on BIPAP. Bilateral crackles auscultated bilaterally. Patient following commands without focal deficits, however noted to have bilateral tremor in upper extremities. Following admission, had significant improvement in shock with low dose levophed requirements. Antibiotics de-escalated to CAP coverage with azithromycin and rocephin. Renal function continues to improve with volume resuscitation with adequate electrolyte clearance. Patient able to be weaned off Levophed on morning of 11/14. Stress dose steroids stopped. Respiratory culture with streptococcus pneumoniae and being treated with ceftriaxone x 5 days. Patient on nasal cannula and hemodynamically stable. Patient downgraded to acute level care on 11/15. Hospital course by problem: Strep pneumonia PNA (POA) Shock (POA), resolved Hypoxia (POA) Tobacco Use (POA) - Reports 1 week of productive cough, fever, chills - No baseline oxygen requirement - CXR: with bilateral patchy opacities - VBG 7.16/57/<30/29 on arrival - MRSA nares neg, strep pneumo/legionella neg - Respiratory culture: strep pneumonia -Blood cx now growth day 5 - Completed course of azithromycin 11/14 PLAN: - Continue nasal cannula as needed, wean oxygen as able maintain SPO2 >92% - Completed ceftriaxone x 5 days on 11/17/24 -continue Albuterol/ atrovent MDI as needed ALONZO on CKD 3 (POA) Hyperkalemia (POA) Hyperphosphatemia (POA) - Baseline Creatinine appears to be around 1.0 in 2023, 9 on admission to OSH, now at 3.6 after 2.5L IVF resuscitation - Renal U/S with bilateral cysts, no hydronephrosis - K+ 6.1 on admission to , EKG with NSR with RBBB; received hyperkalemia treatment x1 - UA w/ hyaline casts, calcium oxalate crystals - Renal US with 1.7cm cyst on right kidney, several cysts up to 10.2cm on left kidney -ALONZO resolved. PLAN: - Avoid NSAIDS/nephrotoxic agents and renally dose medications -We have resumed his valsartan which he seems to be tolerating well. Cr has been 0.9-1.0. -Would check BMP within 1 week upon follow up with PCP. Anemia, chronic, normocytic (POA) Uncertain etiology Check iron , TIBC, B12 and folate. Levothyroxine (POA) - Continue home levothyroxine 125 mcg daily HTN (POA) - Home meds: Amlodipine, valsartan PLAN: - Continue home Valsartan 80 mg daily - Increased amlodipine to 10mg daily. 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 - He also had a history of an unknown primary metastatic to the right neck treated at [facility] in [phone] with right neck dissection and radiation therapy. 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 Physical Therapy Outpatient Referral Routine Community acquired pneumonia, unspecified laterality 1 Occurrences starting 11/18/2024 until 05/21/2026 Discharge Ambulatory referral to [facility] Occupational Therapy Outpatient Referral Routine Community acquired pneumonia, unspecified laterality 1 Occurrences starting 11/18/2024 until 05/21/2026 documented as of this encounter Procedures Procedure Name Priority Date/Time Associated Diagnosis Comments IONIZED CALCIUM, WHOLE BLOOD Routine 11/18/2024 2:55 AM EDT CYSTATIN C Routine 11/18/2024 2:55 AM EDT CBC WITH AUTO DIFFERENTIAL Routine 11/18/2024 2:55 AM EDT MAGNESIUM, PLASMA Routine 11/18/2024 2:5 5 AM EDT RENAL FUNCTION PANEL, PLASMA Routine 11/18/2024 2:55 AM EDT POCT GLUCOSE METER UNSOLICITED RESULTS Routine 11/17/2024 11:52 AM EDT OXYGEN THERAPY Routine 11/17/2024 6:00 AM EDT POCT GLUCOSE METER UNSOLICITED RESULTS Routine 11/17/2024 5:58 AM EDT IONIZED CALCIUM, WHOLE BLOOD Routine 11/16/2024 11:47 PM EDT CYSTATIN C Add-On 11/16/2024 11:47 PM EDT CBC W/O DIFFERENTIAL Routine 11/16/2024 11:47 PM EDT MAGNESIUM, PLASMA Routine 11/16/2024 11: 47 PM EDT RENAL FUNCTION PANEL, PLASMA Routine 11/16/2024 11:47 PM EDT POCT GLUCOSE METER UNSOLICITED RESULTS Routine 11/16/2024 6:15 AM EDT OXYGEN THERAPY Routine 11/16/2024 6:00 AM EDT POCT GLUCOSE METER UNSOLICITED RESULTS Routine 11/16/2024 12:32 AM EDT IONIZED CALCIUM, WHOLE BLOOD Routine 11/16/2024 12:26 AM EDT CBC W/O DIFFERENTIAL Routine 11/16/2024 12:26 AM EDT PHOSPHORUS, PLASMA Routine 11/16/2024 12 :26 AM EDT MAGNESIUM, PLASMA Routine 11/16/2024 12: 26 AM EDT BASIC METABOLIC PANEL, PLASMA Routine 11/16/2024 12:26 AM EDT POCT GLUCOSE METER UNSOLICITED RESULTS Routine 11/15/2024 9:18 PM EDT POCT GLUCOSE METER UNSOLICITED RESULTS Routine 11/15/2024 6:24 PM EDT POCT GLUCOSE METER UNSOLICITED RESULTS Routine 11/15/2024 11:48 AM EDT OXYGEN THERAPY Routine 11/15/2024 6:00 AM EDT POCT GLUCOSE METER UNSOLICITED RESULTS Routine 11/15/2024 5:29 AM EDT IONIZED CALCIUM, WHOLE BLOOD Routine 11/15/2024 12:17 AM EDT CBC W/O DIFFERENTIAL Routine 11/15/2024 12:17 AM EDT PHOSPHORUS, PLASMA Routine 11/15/2024 12 :17 AM EDT MAGNESIUM, PLASMA Routine 11/15/2024 12: 17 AM EDT BASIC METABOLIC PANEL, PLASMA Routine 11/15/2024 12:17 AM EDT POCT GLUCOSE METER UNSOLICITED RESULTS Routine 11/15/2024 12:16 AM EDT POCT GLUCOSE METER UNSOLICITED RESULTS Routine 11/14/2024 5:49 PM EDT POCT GLUCOSE METER UNSOLICITED RESULTS Routine 11/14/2024 12:47 PM EDT CRITICAL CARE Routine 11/14/2024 11:46 AM EDT Acute renal failure with tubular necrosis (CMS/HCC) Shock (CMS/HCC) OXYGEN THERAPY Routine 11/14/2024 6:00 AM EDT POCT GLUCOSE METER UNSOLICITED RESULTS Routine 11/14/2024 5:50 AM EDT BASIC METABOLIC PANEL, PLASMA Timed 11/14/2024 4:10 AM EDT XR CHEST 1 VIEW Routine 11/14/2024 2:22 AM EDT IONIZED CALCIUM, WHOLE BLOOD Routine 11/13/2024 11:55 PM EDT CBC W/O DIFFERENTIAL Routine 11/13/2024 11:55 PM EDT PHOSPHORUS, PLASMA Routine 11/13/2024 11 :55 PM EDT MAGNESIUM, PLASMA Routine 11/13/2024 11: 55 PM EDT BASIC METABOLIC PANEL, PLASMA Timed 11/13/2024 11:55 PM EDT POCT GLUCOSE METER UNSOLICITED RESULTS Routine 11/13/2024 11:53 PM EDT BASIC METABOLIC PANEL, PLASMA Timed 11/13/2024 7:47 PM EDT POCT GLUCOSE METER UNSOLICITED RESULTS Routine 11/13/2024 5:16 PM EDT BASIC METABOLIC PANEL, PLASMA Timed 11/13/2024 3:41 PM EDT BASIC METABOLIC PANEL, PLASMA Timed 11/13/2024 12:20 PM EDT POCT GLUCOSE METER UNSOLICITED RESULTS Routine 11/13/2024 11:53 AM EDT ECHO, ADULT TRANSTHORACIC COMPLETE STAT 11/13/2024 10:59 AM EDT OXYGEN THERAPY Routine 11/13/2024 8:00 AM EDT NON-INVASIVE VENTILATION Routine 11/13/2024 8:00 AM EDT CYSTATIN C Routine 11/13/2024 7:45 AM EDT BASIC METABOLIC PANEL, PLASMA Timed 11/13/2024 7:45 AM EDT NH CRITICAL CARE, E/M 30-74 MINUTES Routine 11/13/2024 7:19 AM EDT Acute renal failure with tubular necrosis (CMS/HCC) Shock (CMS/HCC) Hyperkalemia Acute hypoxic respiratory failure OXYGEN THERAPY Routine 11/13/2024 6:00 AM EDT POCT GLUCOSE METER UNSOLICITED RESULTS Routine 11/13/2024 5:14 AM EDT BLOOD GAS PANEL, ARTERIAL Routine 11/13/2024 5:13 AM EDT IONIZED CALCIUM, SERUM Routine 1:58 AM EDT SERUM DRUG SCREEN Routine 11/13/2024 1:5 8 AM EDT CBC W/O DIFFERENTIAL Routine 11/13/2024 1:58 AM EDT PHOSPHORUS, PLASMA Routine 11/13/2024 1: 58 AM EDT MAGNESIUM, PLASMA Routine 11/13/2024 1:5 8 AM EDT BLOOD GAS PANEL, ARTERIAL Routine 11/13/2024 1:58 AM EDT BASIC METABOLIC PANEL, PLASMA Routine 11/13/2024 1:58 AM EDT RESPIRATORY CULTURE AND GRAM STAIN Routine 11/12/2024 11:57 PM EDT POCT GLUCOSE METER UNSOLICITED RESULTS Routine 11/12/2024 11:48 PM EDT XR CHEST 1 VIEW STAT 11/12/2024 10:51 PM EDT NH CRITICAL CARE, E/M 30-74 MINUTES Routine 11/12/2024 10:26 PM EDT Acute renal failure with tubular necrosis (CMS/HCC) Acute renal failure, unspecified acute renal failure type (CMS/HCC) Shock (CMS/HCC) Community acquired pneumonia, unspecified laterality Hyperkalemia CVC TRIPLE LUMEN (SMARTFORM LINK) Routine 11/12/2024 9:58 PM EDT Shock (CMS/HCC) HC INSERT NON-TUNNEL CV CATH Routine 11/12/2024 9:58 PM EDT Shock (CMS/HCC) NH INSERT NON-TUNNEL CV CATH Routine 11/12/2024 9:58 PM EDT Shock (CMS/HCC) HC INSERT CATH,ART,PERCUT,VALE ERM Routine 11/12/2024 9:42 PM EDT Acute renal failure with tubular necrosis (CMS/HCC) NH INSERT CATH,ART,PERCUT,VALE ERM Routine 11/12/2024 9:42 PM EDT Acute renal failure with tubular necrosis (CMS/HCC) POCT GLUCOSE METER UNSOLICITED RESULTS Routine 11/12/2024 9:41 PM EDT POCT GLUCOSE METER UNSOLICITED RESULTS Routine 11/12/2024 9:09 PM EDT POCT GLUCOSE METER UNSOLICITED RESULTS Routine 11/12/2024 8:30 PM EDT POTASSIUM, PLASMA STAT 11/12/2024 8:2 9 PM EDT US RENAL COMPLETE STAT 11/12/2024 8:2 6 PM EDT OXYGEN THERAPY Routine 11/12/2024 8:00 PM EDT NON-INVASIVE VENTILATION Routine 11/12/2024 8:00 PM EDT POCT GLUCOSE METER UNSOLICITED RESULTS Routine 11/12/2024 7:57 PM EDT ECG ADULT STAT 11/12/2024 7:56 PM EDT BETA HYDROXYBUTYRIC ACID Routine 11/12/2024 7:03 PM EDT PHOSPHORUS, PLASMA Routine 11/12/2024 7: 03 PM EDT MAGNESIUM, PLASMA Routine 11/12/2024 7:0 3 PM EDT BASIC METABOLIC PANEL, PLASMA Routine 11/12/2024 7:03 PM EDT XR CHEST 1 VIEW STAT 11/12/2024 6:59 PM EDT STREPTOCOCCUS PNEUMONIAE AND LEGIONELLA URINARY ANTIGEN Routine 11/12/2024 6:57 PM EDT URINALYSIS MICROSCOPIC FOR UA REFLEX Routine 11/12/2024 6:57 PM EDT SODIUM, URINE, RANDOM Routine 11/12/2024 6:57 PM EDT CREATININE, RANDOM URINE Routine 11/12/2024 6:57 PM EDT COMPREHENSIVE URINE DRUG SCREENING,QUALITATIVE ASSAY, >= 27 DRUG CLASSES Routine 11/12/2024 6:57 PM EDT URINALYSIS WITH REFLEX MICROSCOPIC Routine 11/12/2024 6:57 PM EDT OXYGEN THERAPY Routine 11/12/2024 6:51 PM EDT OXYGEN THERAPY Routine 11/12/2024 6:51 PM EDT OXYGEN THERAPY Routine 11/12/2024 6:51 PM EDT NON-INVASIVE VENTILATION Routine 11/12/2024 6:51 PM EDT NON-INVASIVE VENTILATION Routine 11/12/2024 6:51 PM EDT NON-INVASIVE VENTILATION Routine 11/12/2024 6:51 PM EDT NATHALY AURIS SURVEILLANCE BY PCR Routine 11/12/2024 6:51 PM EDT SARS COV-2/COVID-19 BY PCR Routine 11/12/2024 6:51 PM EDT MULTI DRUG RESISTANCE TEST Routine 11/12/2024 6:51 PM EDT METHICILLIN RESISTANT STAPHYLOCOCCUS AUREUS (MRSA) BY PCR Routine 11/12/2024 6:51 PM EDT CYSTATIN C Routine 11/12/2024 6:48 PM EDT PROCALCITONIN, PLASMA Routine 11/12/2024 6:48 PM EDT ACETAMINOPHEN, QUANTATATIVE, PLASMA Routine 11/12/2024 6:48 PM EDT N-TERMINAL PROBNP, PLASMA Routine 11/12/2024 6:48 PM EDT ACUTE HEPATITIS PANEL Routine 11/12/2024 6:48 PM EDT BLOOD CULTURE (AEROBIC/ANAEROBIC SET) Routine 11/12/2024 6:48 PM EDT PROTHROMBIN TIME(PT) / INR STAT 11/12/2024 6:48 PM EDT CBC WITH AUTO DIFFERENTIAL STAT 11/12/2024 6:48 PM EDT TYPE AND SCREEN Routine 11/12/2024 6:48 PM EDT TROPONIN T, HIGH SENSITIVITY, CARDIAC RISK ASSESSMENT STAT 11/12/2024 6:48 PM EDT TSH Routine 11/12/2024 6:48 PM EDT FREE T4, PLASMA Routine 11/12/2024 6:48 PM EDT PHOSPHORUS, PLASMA STAT 11/12/2024 6: 48 PM EDT MAGNESIUM, PLASMA STAT 11/12/2024 6:4 8 PM EDT HEMOGLOBIN A1C Routine 11/12/2024 6:48 PM EDT CORTISOL Routine 11/12/2024 6:48 PM EDT SALICYLATE, QUANTITATIVE, PLASMA Routine 11/12/2024 6:48 PM EDT COMPREHENSIVE METABOLIC PANEL, PLASMA STAT 11/12/2024 6:48 PM EDT POCT VENOUS BLOOD GAS GEM UNSOLICITED RESULTS Routine 11/12/2024 6:41 PM EDT POCT GLUCOSE METER UNSOLICITED RESULTS Routine 11/12/2024 6:30 PM EDT OXYGEN THERAPY Routine 11/12/2024 6:24 PM EDT OXYGEN THERAPY Routine 11/12/2024 6:24 PM EDT documented in this encounter Results * (ABNORMAL) CBC and differential (11/18/2024 2:55 AM EDT) [facility] WBC Count 5.82 3.70 - 10.30 10*3/uL LAB HEMATOLOGY METHOD 11/18/2024 3:19 AM EDT [facility] RBC Count 3.24(L) 4.60 - 6.10 10*6/uL LAB HEMATOLOGY METHOD 11/18/2024 3:19 AM EDT [facility] HGB 9.9(L) 13.7 - 17.5 g/dL LAB HEMATOLOGY METHOD 11/18/2024 3:19 AM EDT [facility] HCT 30.3(L) 40.0 - 51.0 % LAB HEMATOLOGY METHOD 11/18/2024 3:19 AM EDT [facility] Platelet Count 152(L) 155 - 369 10*3/uL LAB HEMATOLOGY METHOD 11/18/2024 3:19 AM EDT [facility] MCV 94 79 - 98 fL LAB HEMATOLOGY METHOD 11/18/2024 3:19 AM EDT [facility] MCH 30.6 26.0 - 32.0 pg LAB HEMATOLOGY METHOD 11/18/2024 3:19 AM EDT [facility] MCHC 32.7 30.7 - 35.5 g/dL LAB HEMATOLOGY METHOD 11/18/2024 3:19 AM EDT [facility] RDW 13.7 11.5 - 14.5 % LAB HEMATOLOGY METHOD 11/18/2024 3:19 AM EDT [facility] MPV 9.6 8.8 - 12.5 fL LAB HEMATOLOGY METHOD 11/18/2024 3:19 AM EDT [facility] nRBC 0.0 <=0.0 per 100 WBCs LAB HEMATOLOGY METHOD 11/18/2024 3:19 AM EDT [facility] Differential Type Automated LAB HEMATOLOGY METHOD 11/18/2024 3:19 AM EDT [facility] Neutrophils % 68 % LAB HEMATOLOGY METHOD 11/18/2024 3:19 AM EDT [facility] Lymphocytes % 19 % LAB HEMATOLOGY METHOD 11/18/2024 3:19 AM EDT [facility] Monocytes % 9 % LAB HEMATOLOGY METHOD 11/18/2024 3:19 AM EDT [facility] Eosinophils % 2 % LAB HEMATOLOGY METHOD 11/18/2024 3:19 AM EDT [facility] Basophils % 1 % LAB HEMATOLOGY METHOD 11/18/2024 3:19 AM EDT [facility] Immature Granulocytes % 1 % LAB HEMATOLOGY METHOD 11/18/2024 3:19 AM EDT [facility] Neutrophils Absolute 3.99 1.60 - 6.10 10*3/uL LAB HEMATOLOGY METHOD 11/18/2024 3:19 AM EDT [facility] Lymphocytes Absolute 1.08(L) 1.20 - 3.90 10*3/uL LAB HEMATOLOGY METHOD 11/18/2024 3:19 AM EDT [facility] Monocytes Absolute 0.51 0.30 - 0.90 10*3/uL LAB HEMATOLOGY METHOD 11/18/2024 3:19 AM EDT [facility] Eosinophils Absolute 0.13 0.00 - 0.50 10*3/uL LAB HEMATOLOGY METHOD 11/18/2024 3:19 AM EDT [facility] Basophils Absolute 0.03 0.00 - 0.10 10*3/uL LAB HEMATOLOGY METHOD 11/18/2024 3:19 AM EDT [facility] Immature Granulocytes Absolute 0.08(H) 0.00 - 0.06 10*3/uL LAB HEMATOLOGY METHOD 11/18/2024 3:19 AM EDT [facility] Blood Venous blood specimen / Unknown Venipuncture / Unknown 11/18/2024 2:55 AM EDT 11/18/2024 3:09 AM EDT Narrative [facility] - 11/18/2024 3:19 AM EDT Therapeutic decision making should be based on absolute values, rather than percentages. Justo Oconnell MD LAB BLOOD ORDERABLES Final Re sult Performing Organization Address City/[facility]/ZIP Co de Phone Number [facility] [address] [place] [address] * Ionized calcium, whole blood (11/18/2024 2:55 AM EDT) Ionized Calcium, Whole Blood 4.7 4.6 - 5.1 mg/dL LAB HEMATOLOGY METHOD 11/18/2024 3:11 AM EDT [facility] Blood Venous blood specimen / Unknown Venipuncture / Unknown 11/18/2024 2:55 AM EDT 11/18/2024 3:09 AM EDT Ellen Mendez APRN LAB BLOOD ORDERABLES Fin al Result [facility] [address] [place] [address] * Magnesium, Plasma (11/18/2024 2:55 AM EDT) Magnesium, Plasma 2.0 1.9 - 2.4 mg/dL 11/18/2024 3:44 AM EDT [facility] Blood Venous blood specimen / Unknown Venipuncture / Unknown 11/18/2024 2:55 AM EDT 11/18/2024 3:10 AM EDT us MEREDITH Elizabeth III LAB BLOOD ORDERABLES Lenka l Result [facility] [address] [place] [address] * (ABNORMAL) Renal Function Panel, Plasma (11/18/2024 2:55 AM EDT) Glucose, Plasma 104(H) 74 - 99 mg/dL 11/18/2024 3:44 AM EDT [facility] BUN, Plasma 20 8 - 23 mg/dL 11/18/2024 3:44 AM EDT [facility] Creatinine, Plasma 1.01 0.70 - 1.20 mg/dL 11/18/2024 3:44 AM EDT [facility] BUN/Creatinine Ratio 20 11/18/2024 3:44 AM EDT [facility] Sodium, Plasma 141 136 - 145 mmol/L 11/18/2024 3:44 AM EDT [facility] Potassium, Plasma 4.2 3.6 - 4.9 mmol/L 11/18/2024 3:44 AM EDT [facility] Chloride, Plasma 107 97 - 107 mmol/L 11/18/2024 3:44 AM EDT [facility] CO2, Plasma 24 22 - 29 mmol/L 11/18/2024 3:44 AM EDT [facility] Anion Gap 10 6 - 16 mmol/L 11/18/2024 3:44 AM EDT [facility] Total Calcium, Plasma 9.2 8.9 - 10.2 mg/dL 11/18/2024 3:44 AM EDT [facility] Phosphorus, Plasma 2.6 2.5 - 4.5 mg/dL 11/18/2024 3:44 AM EDT [facility] Albumin, Plasma 3.2(L) 3.5 - 5.2 g/dL 11/18/2024 3:44 AM EDT [facility] eGFRcr 81.5 mL/min/1.7 3m*2 11/18/2024 3:44 AM EDT [facility] Comment:Reported eGFRcr in m L/min/1.73m2 is based the CKD-EPI 2020 equation that does not use a race coefficient. Blood Venous blood specimen / Unknown Venipuncture / Unknown 11/18/2024 2:55 AM EDT 11/18/2024 3:10 AM EDT MEREDITH Elizabeth III LAB BLOOD ORDERABLES Lenka l Result Performing Organization Address City/[facility]/ZIP Co de Phone Number [facility] [address] [place] [address] * (ABNORMAL) Cystatin C (11/18/2024 2:55 AM EDT) Cystatin C 1.41(H) 0.61 - 0.95 mg/L 11/18/2024 3:44 AM EDT [facility] Blood Venous blood specimen / Unknown Venipuncture / Unknown 11/18/2024 2:55 AM EDT 11/18/2024 3:10 AM EDT Justo Oconnell MD LAB BLOOD ORDERABLES Final Re sult [facility] [address] [place] [address] * (ABNORMAL) POCT glucose meter (11/17/2024 11:52 AM EDT) POCT Glucose 111(H) 74 - 99 mg/dL 11/17/2024 11:54 AM EDT [facility] Comment:Accuracy of a glucos e result obtained from a capillary whole blood specimen relies upon adequate, non-compromised capillary blood flow. If the capillary glucose result is not consistent with the patient's clinical signs and symptoms, glucose testing should be repeated with either an arterial or venous sample on the glucometer or sent to the main labortory for testing. Comment 11/17/2024 11:54 AM EDT [facility] Self Storage Manager ID Danette Camargo 11/17/2024 11:54 AM EDT [facility] Device ID [id number] 11/17/2024 11:54 AM EDT [facility] Specimen Type POC Capillary 11/17/2024 11:54 AM EDT [facility] Blood Capillary blood specimen / Unknown 11/17/2024 11:52 AM EDT 11/17/2024 11:54 AM EDT us Justo Oconnell MD LAB POINT OF CARE TE ST DOCKED DEVICE UNSOLICITED RESULTS Final Result Performing Organization Address City/[facility]/ZIP Co de Phone Number [facility] [address] [place] [address] * (ABNORMAL) POCT glucose meter (11/17/2024 5:58 AM EDT) [facility] POCT Glucose 108(H) 74 - 99 mg/dL 11/17/2024 5:59 AM EDT [facility] Comment:Accuracy of a glucos e result obtained from a capillary whole blood specimen relies upon adequate, non-compromised capillary blood flow. If the capillary glucose result is not consistent with the patient's clinical signs and symptoms, glucose testing should be repeated with either an arterial or venous sample on the glucometer or sent to the main labortory for testing. Comment 11/17/2024 5:59 AM EDT [facility] Self Storage Manager ID Joseluis Timmons 11/18/19 5:59 AM EDT [facility] Device ID [id number] 11/17/2024 5:59 AM EDT [facility] Specimen Type POC Capillary 11/17/2024 5:59 AM EDT [facility] Blood Capillary blood specimen / Unknown 11/17/2024 5:58 AM EDT 11/17/2024 5:59 AM EDT us Patric Garland MD LAB POINT OF CARE TE ST DOCKED DEVICE UNSOLICITED RESULTS Final Result [facility] [address] [place] [address] * (ABNORMAL) Cystatin C (11/16/2024 11:47 PM EDT) Cystatin C 1.46(H) 0.61 - 0.95 mg/L 11/17/2024 3:38 PM EDT [facility] Blood Venous blood specimen / Unknown Venipuncture / Unknown 11/16/2024 11:47 PM EDT 11/16/2024 11:55 PM EDT us MEREDITH Elizabeth III LAB BLOOD ORDERABLES Lenka l Result Performing Organization Address [facility]/ZIP Co de Phone Number [facility] [address] [place] [address] * Ionized calcium, whole blood (11/16/2024 11:47 PM EDT) Ionized Calcium, Whole Blood 4.7 4.6 - 5.1 mg/dL LAB HEMATOLOGY METHOD 11/16/2024 11:55 PM EDT [facility] Blood Venous blood specimen / Unknown Venipuncture / Unknown 11/16/2024 11:47 PM EDT 11/16/2024 11:54 PM EDT Ellen Mendez APRN LAB BLOOD ORDERABLES Fin al Result Performing Organization Address City/[facility]/Z[place] [address] * Magnesium, Plasma (11/16/2024 11:47 PM EDT) Magnesium, Plasma 2.0 1.9 - 2.4 mg/dL 11/17/2024 12:23 AM EDT [facility] Blood Venous blood specimen / Unknown Venipuncture / Unknown 11/16/2024 11:47 PM EDT 11/16/2024 11:55 PM EDT MEREDITH Elizabeth III LAB BLOOD ORDERABLES Lenka l Result [facility] [address] [place] [address] * (ABNORMAL) Renal Function Panel, Plasma (11/16/2024 11:47 PM EDT) Glucose, Plasma 106(H) 74 - 99 mg/dL 11/17/2024 12:23 AM EDT [facility] BUN, Plasma 21 8 - 23 mg/dL 11/17/2024 12:23 AM EDT [facility] Creatinine, Plasma 0.99 0.70 - 1.20 mg/dL 11/17/2024 12:23 AM EDT [facility] BUN/Creatinine Ratio 21 11/17/2024 12:23 AM EDT [facility] Sodium, Plasma 145 136 - 145 mmol/L 11/17/2024 12:23 AM EDT [facility] Potassium, Plasma 4.0 3.6 - 4.9 mmol/L 11/17/2024 12:23 AM EDT [facility] Chloride, Plasma 105 97 - 107 mmol/L 11/17/2024 12:23 AM EDT [facility] CO2, Plasma 27 22 - 29 mmol/L 11/17/2024 12:23 AM EDT [facility] Anion Gap 13 6 - 16 mmol/L 11/17/2024 12:23 AM EDT [facility] Total Calcium, Plasma 9.4 8.9 - 10.2 mg/dL 11/17/2024 12:23 AM EDT [facility] Phosphorus, Plasma 2.6 2.5 - 4.5 mg/dL 11/17/2024 12:23 AM EDT [facility] Albumin, Plasma 3.7 3.5 - 5.2 g/dL 11/17/2024 12:23 AM EDT [facility] eGFRcr 83.5 mL/min/1.7 3m*2 11/17/2024 12:23 AM EDT [facility] Comment:Reported eGFRcr in m L/min/1.73m2 is based the CKD-EPI 2020 equation that does not use a race coefficient. Blood Venous blood specimen / Unknown Venipuncture / Unknown 11/16/2024 11:47 PM EDT 11/16/2024 11:55 PM EDT us MEREDITH Elizabeth III LAB BLOOD ORDERABLES Lenka calvin Result [facility] [address] [place] [address] * (ABNORMAL) CBC W/O Differential (11/16/2024 11:47 PM EDT) WBC Count 6.59 3.70 - 10.30 10*3/uL LAB HEMATOLOGY METHOD 11/17/2024 12:02 AM EDT [facility] RBC Count 3.47(L) 4.60 - 6.10 10*6/uL LAB HEMATOLOGY METHOD 11/17/2024 12:02 AM EDT [facility] HGB 10.5(L) 13.7 - 17.5 g/dL LAB HEMATOLOGY METHOD 11/17/2024 12:02 AM EDT [facility] HCT 32.6(L) 40.0 - 51.0 % LAB HEMATOLOGY METHOD 11/17/2024 12:02 AM EDT [facility] Platelet Count 166 155 - 369 10*3/uL LAB HEMATOLOGY METHOD 11/17/2024 12:02 AM EDT [facility] MCV 94 79 - 98 fL LAB HEMATOLOGY METHOD 11/17/2024 12:02 AM EDT [facility] MCH 30.3 26.0 - 32.0 pg LAB HEMATOLOGY METHOD 11/17/2024 12:02 AM EDT [facility] MCHC 32.2 30.7 - 35.5 g/dL LAB HEMATOLOGY METHOD 11/17/2024 12:02 AM EDT [facility] RDW 14.0 11.5 - 14.5 % LAB HEMATOLOGY METHOD 11/17/2024 12:02 AM EDT [facility] MPV 9.6 8.8 - 12.5 fL LAB HEMATOLOGY METHOD 11/17/2024 12:02 AM EDT [facility] nRBC 0.0 <=0.0 per 100 WBCs LAB HEMATOLOGY METHOD 11/17/2024 12:02 AM EDT [facility] Blood Venous blood specimen / Unknown Venipuncture / Unknown 11/16/2024 11:47 PM EDT 11/16/2024 11:55 PM EDT us MEREDITH Elizabeth III LAB BLOOD ORDERABLES Lenka l Result Performing Organization Address City/[facility] Co de Phone Number [facility] [address] [place] [address] * (ABNORMAL) POCT glucose meter (11/16/2024 6:15 AM EDT) POCT Glucose 123(H) 74 - 99 mg/dL 11/16/2024 6:17 AM EDT [facility] Comment:Accuracy of a glucos e result obtained from a capillary whole blood specimen relies upon adequate, non-compromised capillary blood flow. If the capillary glucose result is not consistent with the patient's clinical signs and symptoms, glucose testing should be repeated with either an arterial or venous sample on the glucometer or sent to the main labortory for testing. Comment 11/16/2024 6:17 AM EDT [facility] Self Storage Manager ID Nidhi Timmonsstacie 11/17/19 6:17 AM EDT [facility] Device ID [id number] 11/16/2024 6:17 AM EDT [facility] Specimen Type POC Capillary 11/16/2024 6:17 AM EDT [facility] Blood Capillary blood specimen / Unknown 11/16/2024 6:15 AM EDT 11/16/2024 6:17 AM EDT Patric Garland MD LAB POINT OF CARE TE ST DOCKED DEVICE UNSOLICITED RESULTS Final Result Performing Organization Address City/[facility] Co de Phone Number [facility] [address] [place] [address] * (ABNORMAL) POCT glucose meter (11/16/2024 12:32 AM EDT) Pathologist [facility] POCT Glucose 103(H) 74 - 99 mg/dL 11/16/2024 12:34 AM EDT [facility] Comment:Accuracy of a glucos e result obtained from a capillary whole blood specimen relies upon adequate, non-compromised capillary blood flow. If the capillary glucose result is not consistent with the patient's clinical signs and symptoms, glucose testing should be repeated with either an arterial or venous sample on the glucometer or sent to the main labortory for testing. Comment 11/16/2024 12:34 AM EDT [facility] Self Storage Manager ID Joseluis Timmons 11/17/19 12:34 AM EDT [facility] Device ID [id number] 11/16/2024 12:34 AM EDT [facility] Specimen Type POC Venous 11/16/2024 12:34 AM EDT [facility] Blood Venous blood specimen / Unknown 11/16/2024 12:32 AM EDT 11/16/2024 12:34 AM EDT us Patric Garland MD LAB POINT OF CARE TE ST DOCKED DEVICE UNSOLICITED RESULTS Final Result [facility] [address] [place], [place] [id number] * (ABNORMAL) Hemogram (CBC) (11/16/2024 12:26 AM EDT) WBC Count 6.47 3.70 - 10.30 10*3/uL LAB HEMATOLOGY METHOD 11/16/2024 1:11 AM EDT [facility] RBC Count 3.37(L) 4.60 - 6.10 10*6/uL LAB HEMATOLOGY METHOD 11/16/2024 1:11 AM EDT [facility] HGB 10.2(L) 13.7 - 17.5 g/dL LAB HEMATOLOGY METHOD 11/16/2024 1:11 AM EDT [facility] HCT 32.3(L) 40.0 - 51.0 % LAB HEMATOLOGY METHOD 11/16/2024 1:11 AM EDT [facility] Platelet Count 164 155 - 369 10*3/uL LAB HEMATOLOGY METHOD 11/16/2024 1:11 AM EDT [facility] MCV 96 79 - 98 fL LAB HEMATOLOGY METHOD 11/16/2024 1:11 AM EDT [facility] MCH 30.3 26.0 - 32.0 pg LAB HEMATOLOGY METHOD 11/16/2024 1:11 AM EDT [facility] MCHC 31.6 30.7 - 35.5 g/dL LAB HEMATOLOGY METHOD 11/16/2024 1:11 AM EDT [facility] RDW 14.1 11.5 - 14.5 % LAB HEMATOLOGY METHOD 11/16/2024 1:11 AM EDT [facility] MPV 10.2 8.8 - 12.5 fL LAB HEMATOLOGY METHOD 11/16/2024 1:11 AM EDT [facility] nRBC 0.0 <=0.0 per 100 WBCs LAB HEMATOLOGY METHOD 11/16/2024 1:11 AM EDT [facility] Blood Venous blood specimen / Unknown Venipuncture / Unknown 11/16/2024 12:26 AM EDT 11/16/2024 12:39 AM EDT Krystina Jefferson APRN LAB BLOOD ORDERABLES Fi nal Result Performing Organization Address City/[facility]/[place] [address] * Ionized calcium, whole blood (11/16/2024 12:26 AM EDT) Ionized Calcium, Whole Blood 4.8 4.6 - 5.1 mg/dL LAB HEMATOLOGY METHOD 11/16/2024 12:37 AM EDT [facility] Blood Venous blood specimen / Unknown Venipuncture / Unknown 11/16/2024 12:26 AM EDT 11/16/2024 12:35 AM EDT us Krystina Jefferson APRN LAB BLOOD ORDERABLES [place] [address] * Phosphorus, Plasma (11/16/2024 12:26 AM EDT) Phosphorus, Plasma 2.8 2.5 - 4.5 mg/dL 11/16/2024 1:25 AM EDT [facility] Blood Venous blood specimen / Unknown Venipuncture / Unknown 11/16/2024 12:26 AM EDT 11/16/2024 12:37 AM EDT us Krystina Jefferson GLUE COOK LAB BLOOD ORDERABLES Fi nal Result [facility] [address] [place] [address] * Magnesium, Plasma (11/16/2024 12:26 AM EDT) Pathologist [facility] Magnesium, Plasma 2.0 1.9 - 2.4 mg/dL 11/16/2024 1:25 AM EDT [facility] Blood Venous blood specimen / Unknown Venipuncture / Unknown 11/16/2024 12:26 AM EDT 11/16/2024 12:37 AM EDT Krystina Jefferson GLUE COOK LAB BLOOD ORDERABLES Fi nal Result Performing Organization Address [facility]/ZIP Co de Phone Number [facility] [address] [place] [address] * (ABNORMAL) Basic metabolic panel (11/16/2024 12:26 AM EDT) Glucose, Plasma 111(H) 74 - 99 mg/dL 11/16/2024 1:25 AM EDT [facility] BUN, Plasma 25(H) 8 - 23 mg/dL 11/16/2024 1:25 AM EDT [facility] Creatinine, Plasma 0.92 0.70 - 1.20 mg/dL 11/16/2024 1:25 AM EDT [facility] BUN/Creatinine Ratio 27 11/16/2024 1:25 AM EDT [facility] Sodium, Plasma 145 136 - 145 mmol/L 11/16/2024 1:25 AM EDT [facility] Potassium, Plasma 4.0 3.6 - 4.9 mmol/L 11/16/2024 1:25 AM EDT [facility] Chloride, Plasma 107 97 - 107 mmol/L 11/16/2024 1:25 AM EDT [facility] CO2, Plasma 27 22 - 29 mmol/L 11/16/2024 1:25 AM EDT [facility] Anion Gap 11 6 - 16 mmol/L 11/16/2024 1:25 AM EDT [facility] Total Calcium, Plasma 9.4 8.9 - 10.2 mg/dL 11/16/2024 1:25 AM EDT [facility] eGFRcr 91.2 mL/min/1.7 3m*2 11/16/2024 1:25 AM EDT [facility] Comment:Reported eGFRcr in m L/min/1.73m2 is based the CKD-EPI 2020 equation that does not use a race coefficient. Blood Venous blood specimen / Unknown Venipuncture / Unknown 11/16/2024 12:26 AM EDT 11/16/2024 12:37 AM EDT us Krystina Jefferson APRN LAB BLOOD ORDERABLES Fi nal Result Performing Organization Address City/[facility] Co de Phone Number [facility] [address] [place] [address] * (ABNORMAL) POCT glucose meter (11/15/2024 9:18 PM EDT) [facility] POCT Glucose 107(H) 74 - 99 mg/dL 11/15/2024 9:20 PM EDT [facility] Comment:Accuracy of a glucos e result obtained from a capillary whole blood specimen relies upon adequate, non-compromised capillary blood flow. If the capillary glucose result is not consistent with the patient's clinical signs and symptoms, glucose testing should be repeated with either an arterial or venous sample on the glucometer or sent to the main labortory for testing. Comment 11/15/2024 9:20 PM EDT [facility] Self Storage Manager ID [email or web address] price 11/16/19 9:20 PM EDT [facility] Device ID [id number] 11/15/2024 9:20 PM EDT [facility] Specimen Type POC Capillary 11/15/2024 9:20 PM EDT [facility] Blood Capillary blood specimen / Unknown 11/15/2024 9:18 PM EDT 11/15/2024 9:20 PM EDT us Patric Garland MD LAB POINT OF CARE TE ST DOCKED DEVICE UNSOLICITED RESULTS Final Result Performing Organization Address City/[facility]/ZIP Co de Phone Number [facility] [address] [place] [address] * (ABNORMAL) POCT glucose meter (11/15/2024 6:24 PM EDT) [facility] POCT Glucose 123(H) 74 - 99 mg/dL 11/15/2024 6:26 PM EDT [facility] Comment:Accuracy of a glucos e result obtained from a capillary whole blood specimen relies upon adequate, non-compromised capillary blood flow. If the capillary glucose result is not consistent with the patient's clinical signs and symptoms, glucose testing should be repeated with either an arterial or venous sample on the glucometer or sent to the main labortory for testing. Comment 11/15/2024 6:26 PM EDT [facility] Self Storage Manager ID Steph Quispe 11/16/19 6:26 PM EDT [facility] Device ID [id number] 11/15/2024 6:26 PM EDT [facility] Specimen Type POC Capillary 11/15/2024 6:26 PM EDT [facility] Blood Capillary blood specimen / Unknown 11/15/2024 6:24 PM EDT 11/15/2024 6:26 PM EDT Patric Garland MD LAB POINT OF CARE TE ST DOCKED DEVICE UNSOLICITED RESULTS Final Result [facility] [address] [place] [address] * (ABNORMAL) POCT glucose meter (11/15/2024 11:48 AM EDT) [facility] POCT Glucose 129(H) 74 - 99 mg/dL 11/15/2024 11:50 AM EDT [facility] Comment:Accuracy of a glucos e result obtained from a capillary whole blood specimen relies upon adequate, non-compromised capillary blood flow. If the capillary glucose result is not consistent with the patient's clinical signs and symptoms, glucose testing should be repeated with either an arterial or venous sample on the glucometer or sent to the main labortory for testing. Comment 11/15/2024 11:50 AM EDT [facility] Self Storage Manager ID Steph Quispe 11/16/19 11:50 AM EDT [facility] Device ID [id number] 11/15/2024 11:50 AM EDT [facility] Specimen Type POC Capillary 11/15/2024 11:50 AM EDT [facility] Blood Capillary blood specimen / Unknown 11/15/2024 11:48 AM EDT 11/15/2024 11:50 AM EDT Patric Garland MD LAB POINT OF CARE TE ST DOCKED DEVICE UNSOLICITED RESULTS Final Result Performing Organization Address City/[facility]/ZIP Co de Phone Number [facility] [address] [place] [address] * (ABNORMAL) POCT glucose meter (11/15/2024 5:29 AM EDT) POCT Glucose 107(H) 74 - 99 mg/dL 11/15/2024 5:31 AM EDT [facility] Comment:Accuracy of a glucos e result obtained from a capillary whole blood specimen relies upon adequate, non-compromised capillary blood flow. If the capillary glucose result is not consistent with the patient's clinical signs and symptoms, glucose testing should be repeated with either an arterial or venous sample on the glucometer or sent to the main labortory for testing. Comment 11/15/2024 5:31 AM EDT [facility] Self Storage Manager ID [email or web address] 11/15/2024 5:31 AM EDT [facility] Device ID [id number] 11/15/2024 5:31 AM EDT [facility] Specimen Type POC Capillary 11/15/2024 5:31 AM EDT [facility] Blood Capillary blood specimen / Unknown 11/15/2024 5:29 AM EDT 11/15/2024 5:31 AM EDT Kan Lucero MD LAB POINT OF CARE TE ST DOCKED DEVICE UNSOLICITED RESULTS Final Result Performing Organization Address City/[facility]/ZIP Co de Phone Number [facility] [address] [place] [address] * Ionized calcium, whole blood (11/15/2024 12:17 AM EDT) Ionized Calcium, Whole Blood 4.8 4.6 - 5.1 mg/dL LAB HEMATOLOGY METHOD 11/15/2024 12:28 AM EDT [facility] Blood Blood sample taken from central line / Unknown Venipuncture / Unknown 11/15/2024 12:17 AM EDT 11/15/2024 12:24 AM EDT Krystina Jefferson GLUE COOK LAB BLOOD ORDERABLES Fi nal Result [facility] [address] [place] [address] * (ABNORMAL) Phosphorus (11/15/2024 12:17 AM EDT) Phosphorus, Plasma 2.0(L) 2.5 - 4.5 mg/dL 11/15/2024 1:01 AM EDT [facility] Blood Blood sample taken from central line / Unknown Venipuncture / Unknown 11/15/2024 12:17 AM EDT 11/15/2024 12:30 AM EDT Krystina Jefferson GLUE COOK LAB BLOOD ORDERABLES Fi nal Result Performing Organization Address City/[facility]/ZIP Co de Phone Number [facility] [address] [place] [address] * Magnesium, Plasma (11/15/2024 12:17 AM EDT) Magnesium, Plasma 2.2 1.9 - 2.4 mg/dL 11/15/2024 1:01 AM EDT [facility] Blood Blood sample taken from central line / Unknown Venipuncture / Unknown 11/15/2024 12:17 AM EDT 11/15/2024 12:30 AM EDT Krystina Jefferson GLUE COOK LAB BLOOD ORDERABLES Fi nal Result [facility] [address] [place] [address] * (ABNORMAL) Basic metabolic panel (11/15/2024 12:17 AM EDT) Glucose, Plasma 99 74 - 99 mg/dL 11/15/2024 1:01 AM EDT [facility] BUN, Plasma 33(H) 8 - 23 mg/dL 11/15/2024 1:01 AM EDT [facility] Creatinine, Plasma 1.12 0.70 - 1.20 mg/dL 11/15/2024 1:01 AM EDT [facility] BUN/Creatinine Ratio 29 11/15/2024 1:01 AM EDT [facility] Sodium, Plasma 145 136 - 145 mmol/L 11/15/2024 1:01 AM EDT [facility] Potassium, Plasma 4.1 3.6 - 4.9 mmol/L 11/15/2024 1:01 AM EDT [facility] Chloride, Plasma 108(H) 97 - 107 mmol/L 11/15/2024 1:01 AM EDT [facility] CO2, Plasma 27 22 - 29 mmol/L 11/15/2024 1:01 AM EDT [facility] Anion Gap 10 6 - 16 mmol/L 11/15/2024 1:01 AM EDT [facility] Total Calcium, Plasma 9.4 8.9 - 10.2 mg/dL 11/15/2024 1:01 AM EDT [facility] eGFRcr 72.0 mL/min/1.7 3m*2 11/15/2024 1:01 AM EDT [facility] Comment:Reported eGFRcr in m L/min/1.73m2 is based the CKD-EPI 2020 equation that does not use a race coefficient. Blood Blood sample taken from central line / Unknown Venipuncture / Unknown 11/15/2024 12:17 AM EDT 11/15/2024 12:30 AM EDT us [facility] BLOOD ORDERABLES Fi nal Result [facility] [address] [place] [address] * (ABNORMAL) Hemogram (CBC) (11/15/2024 12:17 AM EDT) WBC Count 6.64 3.70 - 10.30 10*3/uL LAB HEMATOLOGY METHOD 11/15/2024 12:39 AM EDT [facility] RBC Count 3.00(L) 4.60 - 6.10 10*6/uL LAB HEMATOLOGY METHOD 11/15/2024 12:39 AM EDT [facility] HGB 9.2(L) 13.7 - 17.5 g/dL LAB HEMATOLOGY METHOD 11/15/2024 12:39 AM EDT [facility] HCT 28.6(L) 40.0 - 51.0 % LAB HEMATOLOGY METHOD 11/15/2024 12:39 AM EDT [facility] Platelet Count 148(L) 155 - 369 10*3/uL LAB HEMATOLOGY METHOD 11/15/2024 12:39 AM EDT [facility] MCV 95 79 - 98 fL LAB HEMATOLOGY METHOD 11/15/2024 12:39 AM EDT [facility] MCH 30.7 26.0 - 32.0 pg LAB HEMATOLOGY METHOD 11/15/2024 12:39 AM EDT [facility] MCHC 32.2 30.7 - 35.5 g/dL LAB HEMATOLOGY METHOD 11/15/2024 12:39 AM EDT [facility] RDW 14.0 11.5 - 14.5 % LAB HEMATOLOGY METHOD 11/15/2024 12:39 AM EDT [facility] MPV 10.3 8.8 - 12.5 fL LAB HEMATOLOGY METHOD 11/15/2024 12:39 AM EDT [facility] nRBC 0.0 <=0.0 per 100 WBCs LAB HEMATOLOGY METHOD 11/15/2024 12:39 AM EDT [facility] Blood Blood sample taken from central line / Unknown Venipuncture / Unknown 11/15/2024 12:17 AM EDT 11/15/2024 12:31 AM EDT us Krystina Jefferson GLUE COOK LAB BLOOD ORDERABLES Fi nal Result [facility] [address] [place] [address] * POCT glucose meter (11/15/2024 12:16 AM EDT) POCT Glucose 98 74 - 99 mg/dL 11/15/2024 12:18 AM EDT [facility] Comment:Accuracy of a glucos e result obtained from a capillary whole blood specimen relies upon adequate, non-compromised capillary blood flow. If the capillary glucose result is not consistent with the patient's clinical signs and symptoms, glucose testing should be repeated with either an arterial or venous sample on the glucometer or sent to the main labortory for testing. Comment 11/15/2024 12:18 AM EDT [facility] Self Storage Manager ID Letty Joseph 11/15/2024 12:18 AM EDT [facility] Device ID [id number] 11/15/2024 12:18 AM EDT [facility] Specimen Type POC Venous 11/15/2024 12:18 AM EDT [facility] Blood Venous blood specimen / Unknown 11/15/2024 12:16 AM EDT 11/15/2024 12:18 AM EDT Kan Lucero MD LAB POINT OF CARE TE ST DOCKED DEVICE UNSOLICITED RESULTS Final Result Performing Organization Address City/State/[facility] Co de Phone Number [facility] [address] [place] [address] * (ABNORMAL) POCT glucose meter (11/14/2024 5:49 PM EDT) [facility] POCT Glucose 116(H) 74 - 99 mg/dL 11/14/2024 5:50 PM EDT [facility] Comment:Accuracy of a glucos e result obtained from a capillary whole blood specimen relies upon adequate, non-compromised capillary blood flow. If the capillary glucose result is not consistent with the patient's clinical signs and symptoms, glucose testing should be repeated with either an arterial or venous sample on the glucometer or sent to the main labortory for testing. Comment 11/14/2024 5:50 PM EDT [facility] Self Storage Manager ID Kasandra Dodson 11/14/2024 5:50 PM EDT [facility] Device ID [id number] 11/14/2024 5:50 PM EDT [facility] Specimen Type POC Capillary 11/14/2024 5:50 PM EDT [facility] Blood Capillary blood specimen / Unknown 11/14/2024 5:49 PM EDT 11/14/2024 5:50 PM EDT Kan Lucero MD LAB POINT OF CARE TE ST DOCKED DEVICE UNSOLICITED RESULTS Final Result Performing Organization Address [facility] de Phone Number [facility] [address] [place] [address] * (ABNORMAL) POCT glucose meter (11/14/2024 12:47 PM EDT) POCT Glucose 131(H) 74 - 99 mg/dL 11/14/2024 12:48 PM EDT [facility] Comment:Accuracy of a glucos e result obtained from a capillary whole blood specimen relies upon adequate, non-compromised capillary blood flow. If the capillary glucose result is not consistent with the patient's clinical signs and symptoms, glucose testing should be repeated with either an arterial or venous sample on the glucometer or sent to the main labortory for testing. Comment 11/14/2024 12:48 PM EDT [facility] Self Storage Manager ID Kasandra Dodson 11/14/2024 12:48 PM EDT [facility] Device ID [id number] 11/14/2024 12:48 PM EDT [facility] Specimen Type POC Capillary 11/14/2024 12:48 PM EDT [facility] Blood Capillary blood specimen / Unknown 11/14/2024 12:47 PM EDT 11/14/2024 12:48 PM EDT Kan Lucero MD LAB POINT OF CARE TE ST DOCKED DEVICE UNSOLICITED RESULTS Final Result Performing Organization Address [facility] de Phone Number [facility] [address] [place] [address] * Critical Care (11/14/2024 11:46 AM EDT) Narrative Kan Lucero MD - 11/14/2024 11:46 AM EDT Kan Lucero MD 11/14/2024 5:16 PM Critical Care Performed by: Krystina Jefferson APRN Authorized by: Krystina Jefferson APRN Critical care provider statement: Critical care time (minutes): 25 Critical care time was exclusive of: Separately billable procedures and treating other patients Critical care was time spent personally by me on the following activities: Development of treatment plan with patient or surrogate, evaluation of patient's response to treatment, examination of patient, obtaining history from patient or surrogate, review of old charts, ordering and review of radiographic studies, ordering and review of laboratory studies and ordering and performing treatments and interventions Comments: The patient is critically ill with: shock and ALONZO. They require complex decision making. Time was spent separate of billed procedures and includes the following: rounding, reviewing medical records, diagnostic imaging, reviewing tests, adjusting mechanical ventilation, vasopressor medications. The patient was seen on rounds with pulmonary critical care physician, Dr. Lucero and they are in agreement with the plan of care. Pharmacy, respiratory and nursing services were present on rounds. Krystina Jefferson APRN IN CLINIC/BEDSIDE ORDER CARLOS Final Result * (ABNORMAL) POCT glucose meter (11/14/2024 5:50 AM EDT) [facility] POCT Glucose 144(H) 74 - 99 mg/dL 11/14/2024 5:51 AM EDT [facility] Comment:Accuracy of a glucos e result obtained from a capillary whole blood specimen relies upon adequate, non-compromised capillary blood flow. If the capillary glucose result is not consistent with the patient's clinical signs and symptoms, glucose testing should be repeated with either an arterial or venous sample on the glucometer or sent to the main labortory for testing. Comment 11/14/2024 5:51 AM EDT [facility] Self Storage Manager ID DitriLetty 11/14/2024 5:51 AM EDT [facility] Device ID [id number] 11/14/2024 5:51 AM EDT [facility] Specimen Type POC Arterial 11/14/2024 5:51 AM EDT [facility] Blood Arterial blood specimen / Unknown 11/14/2024 5:50 AM EDT 11/14/2024 5:51 AM EDT us Kan Lucero MD LAB POINT OF CARE TE ST DOCKED DEVICE UNSOLICITED RESULTS Final Result [facility] [address] [place] [address] * (ABNORMAL) Basic metabolic panel (11/14/2024 4:10 AM EDT) Glucose, Plasma 155(H) 74 - 99 mg/dL 11/14/2024 4:51 AM EDT [facility] BUN, Plasma 40(H) 8 - 23 mg/dL 11/14/2024 4:51 AM EDT [facility] Creatinine, Plasma 1.47(H) 0.70 - 1.20 mg/dL 11/14/2024 4:51 AM EDT [facility] BUN/Creatinine Ratio 27 11/14/2024 4:51 AM EDT [facility] Sodium, Plasma 139 136 - 145 mmol/L 11/14/2024 4:51 AM EDT [facility] Potassium, Plasma 4.5 3.6 - 4.9 mmol/L 11/14/2024 4:51 AM EDT [facility] Chloride, Plasma 104 97 - 107 mmol/L 11/14/2024 4:51 AM EDT [facility] CO2, Plasma 24 22 - 29 mmol/L 11/14/2024 4:51 AM EDT [facility] Anion Gap 11 6 - 16 mmol/L 11/14/2024 4:51 AM EDT [facility] Total Calcium, Plasma 9.3 8.9 - 10.2 mg/dL 11/14/2024 4:51 AM EDT [facility] eGFRcr 52.0 mL/min/1.7 3m*2 11/14/2024 4:51 AM EDT [facility] Comment:Reported eGFRcr in m L/min/1.73m2 is based the CKD-EPI 2020 equation that does not use a race coefficient. Blood Arterial blood specimen / Unknown Venipuncture / Unknown 11/14/2024 4:10 AM EDT 11/14/2024 4:22 AM EDT us Carolee Green GLUE COOK, DNP LAB BLOOD ORDERABLES Final Result [facility] [address] [place] [address] * XR Chest 1 View (11/14/2024 2:22 AM EDT) Anatomical Region Laterality Modality Chest Digital Radiogra phy Impressions 11/14/2024 9:16 AM EDT Worsening airspace disease within right upper lobe. CRITICAL RESULT: No. COMMUNICATION: Per this written report. By electronically signing this report, I, the attending physician, attest that I have personally reviewed the images/data for the above examination(s) and agree with the final edited report. Drafted by Brannon Brown MD on 11/14/2024 8:58 AM Final report signed by Tracie Moran MD on 11/14/2024 9:16 AM Narrative 11/14/2024 9:16 AM EDT CLINICAL INDICATION: respiratory failure TECHNIQUE: XR CHEST 1 VIEW COMPARISON: November 12, 2024 FINDINGS: Stable appearance of left IJ central venous catheter. Stable cardiac mediastinal silhouette. Persistent low lung volumes, with bibasilar atelectasis, with increased right upper lung airspace opacity. No pneumothorax or large pleural effusion. Procedure Note Tracie Moran MD - 11/14/2024 CLINICAL INDICATION: respiratory failure TECHNIQUE: XR CHEST 1 VIEW COMPARISON: November 12, 2024 FINDINGS: Stable appearance of left IJ central venous catheter. Stable cardiacmediastinal silhouette. Persistent low lung volumes, with bibasilaratelectasis, with increased right upper lung airspace opacity. Nopneumothorax or large pleural effusion. IMPRESSION: Worsening airspace disease within right upper lobe. CRITICAL RESULT: No. COMMUNICATION: Per this written report. By electronically signing this report, I, the attending physician, attestthat I have personally reviewed the images/data for the aboveexamination(s) and agree with the final edited report. Drafted by Brannon Brown MD on 11/14/2024 8:58 AM Final report signed by Tracie Moran MD on 11/14/2024 9:16 AM Carolee Green GLUE COOK, DNP IMG XR PROCEDURES Fi nal Result * (ABNORMAL) Basic metabolic panel (11/13/2024 11:55 PM EDT) Glucose, Plasma 151(H) 74 - 99 mg/dL 11/14/2024 12:32 AM EDT [facility] BUN, Plasma 42(H) 8 - 23 mg/dL 11/14/2024 12:32 AM EDT [facility] Creatinine, Plasma 1.72(H) 0.70 - 1.20 mg/dL 11/14/2024 12:32 AM EDT [facility] BUN/Creatinine Ratio 24 11/14/2024 12:32 AM EDT [facility] Sodium, Plasma 137 136 - 145 mmol/L 11/14/2024 12:32 AM EDT [facility] Potassium, Plasma 4.5 3.6 - 4.9 mmol/L 11/14/2024 12:32 AM EDT [facility] Chloride, Plasma 104 97 - 107 mmol/L 11/14/2024 12:32 AM EDT [facility] CO2, Plasma 24 22 - 29 mmol/L 11/14/2024 12:32 AM EDT [facility] Anion Gap 9 6 - 16 mmol/L 11/14/2024 12:32 AM EDT [facility] Total Calcium, Plasma 9.1 8.9 - 10.2 mg/dL 11/14/2024 12:32 AM EDT [facility] eGFRcr 43.0 mL/min/1.7 3m*2 11/14/2024 12:32 AM EDT [facility] Comment:Reported eGFRcr in m L/min/1.73m2 is based the CKD-EPI 2020 equation that does not use a race coefficient. Blood Venous blood specimen / Unknown Venipuncture / Unknown 11/13/2024 11:55 PM EDT 11/14/2024 12:03 AM EDT us Carolee Green GLUE COOK, DNP LAB BLOOD ORDERABLES Final Result [facility] [address] [place] [address] * (ABNORMAL) Phosphorus, Plasma (11/13/2024 11:55 PM EDT) Phosphorus, Plasma 2.3(L) 2.5 - 4.5 mg/dL 11/14/2024 12:32 AM EDT [facility] Blood Venous blood specimen / Unknown Venipuncture / Unknown 11/13/2024 11:55 PM EDT 11/14/2024 12:03 AM EDT us Carolee Green APRN, CRYSTAL LAB BLOOD ORDERABLES Final Result Performing Organization Address City/[facility]/[place] [address] * Magnesium, Plasma (11/13/2024 11:55 PM EDT) Magnesium, Plasma 2.3 1.9 - 2.4 mg/dL 11/14/2024 12:32 AM EDT [facility] Blood Venous blood specimen / Unknown Venipuncture / Unknown 11/13/2024 11:55 PM EDT 11/14/2024 12:03 AM EDT us Carolee Green APRN, CRYSTAL LAB BLOOD ORDERABLES Final Result Performing Organization Address City/[facility]/[place] [address] * Ionized calcium, whole blood (11/13/2024 11:55 PM EDT) Ionized Calcium, Whole Blood 4.8 4.6 - 5.1 mg/dL LAB HEMATOLOGY METHOD 11/14/2024 12:10 AM EDT [facility] Blood Venous blood specimen / Unknown Venipuncture / Unknown 11/13/2024 11:55 PM EDT 11/14/2024 12:08 AM EDT us Carolee Green APRN, CRYSTAL LAB BLOOD ORDERABLES Final Result Performing Organization Address City/[facility]/[place] [address] * (ABNORMAL) CBC W/O Differential (11/13/2024 11:55 PM EDT) WBC Count 8.42 3.70 - 10.30 10*3/uL LAB HEMATOLOGY METHOD 11/14/2024 12:09 AM EDT [facility] RBC Count 3.07(L) 4.60 - 6.10 10*6/uL LAB HEMATOLOGY METHOD 11/14/2024 12:09 AM EDT [facility] HGB 9.4(L) 13.7 - 17.5 g/dL LAB HEMATOLOGY METHOD 11/14/2024 12:09 AM EDT [facility] HCT 28.6(L) 40.0 - 51.0 % LAB HEMATOLOGY METHOD 11/14/2024 12:09 AM EDT [facility] Platelet Count 156 155 - 369 10*3/uL LAB HEMATOLOGY METHOD 11/14/2024 12:09 AM EDT [facility] MCV 93 79 - 98 fL LAB HEMATOLOGY METHOD 11/14/2024 12:09 AM EDT [facility] MCH 30.6 26.0 - 32.0 pg LAB HEMATOLOGY METHOD 11/14/2024 12:09 AM EDT [facility] MCHC 32.9 30.7 - 35.5 g/dL LAB HEMATOLOGY METHOD 11/14/2024 12:09 AM EDT [facility] RDW 13.6 11.5 - 14.5 % LAB HEMATOLOGY METHOD 11/14/2024 12:09 AM EDT [facility] MPV 10.5 8.8 - 12.5 fL LAB HEMATOLOGY METHOD 11/14/2024 12:09 AM EDT [facility] nRBC 0.0 <=0.0 per 100 WBCs LAB HEMATOLOGY METHOD 11/14/2024 12:09 AM EDT [facility] Blood Venous blood specimen / Unknown Venipuncture / Unknown 11/13/2024 11:55 PM EDT 11/14/2024 12:03 AM EDT us Carolee Green GLUE COOK, DNP LAB BLOOD ORDERABLES Final Result [facility] [address] [place] [address] * (ABNORMAL) POCT glucose meter (11/13/2024 11:53 PM EDT) POCT Glucose 144(H) 74 - 99 mg/dL 11/13/2024 11:55 PM EDT [facility] Comment:Accuracy of a glucos e result obtained from a capillary whole blood specimen relies upon adequate, non-compromised capillary blood flow. If the capillary glucose result is not consistent with the patient's clinical signs and symptoms, glucose testing should be repeated with either an arterial or venous sample on the glucometer or sent to the main labortory for testing. Comment 11/13/2024 11:55 PM EDT [facility] Self Storage Manager ID Letty Joseph 11/13/2024 11:55 PM EDT [facility] Device ID [id number] 11/13/2024 11:55 PM EDT [facility] Specimen Type POC Arterial 11/13/2024 11:55 PM EDT [facility] Blood Arterial blood specimen / Unknown 11/13/2024 11:53 PM EDT 11/13/2024 11:55 PM EDT Kan Lucero MD LAB POINT OF CARE TE ST DOCKED DEVICE UNSOLICITED RESULTS Final Result [facility] [address] [place] [address] * (ABNORMAL) Basic metabolic panel (11/13/2024 7:47 PM EDT) Glucose, Plasma 237(H) 74 - 99 mg/dL 11/13/2024 8:52 PM EDT [facility] BUN, Plasma 45(H) 8 - 23 mg/dL 11/13/2024 8:52 PM EDT [facility] Creatinine, Plasma 1.99(H) 0.70 - 1.20 mg/dL 11/13/2024 8:52 PM EDT [facility] BUN/Creatinine Ratio 23 11/13/2024 8:52 PM EDT [facility] Sodium, Plasma 139 136 - 145 mmol/L 11/13/2024 8:52 PM EDT [facility] Potassium, Plasma 4.5 3.6 - 4.9 mmol/L 11/13/2024 8:52 PM EDT [facility] Chloride, Plasma 103 97 - 107 mmol/L 11/13/2024 8:52 PM EDT [facility] CO2, Plasma 22 22 - 29 mmol/L 11/13/2024 8:52 PM EDT [facility] Anion Gap 14 6 - 16 mmol/L 11/13/2024 8:52 PM EDT [facility] Total Calcium, Plasma 9.1 8.9 - 10.2 mg/dL 11/13/2024 8:52 PM EDT [facility] eGFRcr 36.1 mL/min/1.7 3m*2 11/13/2024 8:52 PM EDT [facility] Comment:Reported eGFRcr in m L/min/1.73m2 is based the CKD-EPI 2020 equation that does not use a race coefficient. Blood Venous blood specimen / Unknown Venipuncture / Unknown 11/13/2024 7:47 PM EDT 11/13/2024 8:20 PM EDT Carolee Green GLUE COOK, DNP LAB BLOOD ORDERABLES Final Result [facility] [address] [place] [address] * (ABNORMAL) POCT glucose meter (11/13/2024 5:16 PM EDT) [facility] POCT Glucose 178(H) 74 - 99 mg/dL 11/13/2024 5:18 PM EDT [facility] Comment:Accuracy of a glucos e result obtained from a capillary whole blood specimen relies upon adequate, non-compromised capillary blood flow. If the capillary glucose result is not consistent with the patient's clinical signs and symptoms, glucose testing should be repeated with either an arterial or venous sample on the glucometer or sent to the main labortory for testing. Comment 11/13/2024 5:18 PM EDT [facility] Self Storage Manager ID Ruben Becklyn 025 5:18 PM EDT [facility] Device ID [id number] 11/13/2024 5:18 PM EDT [facility] Specimen Type POC Capillary 11/13/2024 5:18 PM EDT [facility] Blood Capillary blood specimen / Unknown 11/13/2024 5:16 PM EDT 11/13/2024 5:18 PM EDT us Kan Lucero MD LAB POINT OF CARE TE ST DOCKED DEVICE UNSOLICITED RESULTS Final Result [facility] [address] [place] [address] * (ABNORMAL) Basic metabolic panel (11/13/2024 3:41 PM EDT) Glucose, Plasma 187(H) 74 - 99 mg/dL 11/13/2024 4:32 PM EDT [facility] BUN, Plasma 50(H) 8 - 23 mg/dL 11/13/2024 4:32 PM EDT [facility] Creatinine, Plasma 2.38(H) 0.70 - 1.20 mg/dL 11/13/2024 4:32 PM EDT [facility] BUN/Creatinine Ratio 21 11/13/2024 4:32 PM EDT [facility] Sodium, Plasma 133(L) 136 - 145 mmol/L 11/13/2024 4:32 PM EDT [facility] Potassium, Plasma 4.6 3.6 - 4.9 mmol/L 11/13/2024 4:32 PM EDT [facility] Chloride, Plasma 101 97 - 107 mmol/L 11/13/2024 4:32 PM EDT [facility] CO2, Plasma 23 22 - 29 mmol/L 11/13/2024 4:32 PM EDT [facility] Anion Gap 9 6 - 16 mmol/L 11/13/2024 4:32 PM EDT [facility] Total Calcium, Plasma 8.8(L) 8.9 - 10.2 mg/dL 11/13/2024 4:32 PM EDT [facility] eGFRcr 29.1 mL/min/1.7 3m*2 11/13/2024 4:32 PM EDT [facility] Comment:Reported eGFRcr in m L/min/1.73m2 is based the CKD-EPI 2020 equation that does not use a race coefficient. Blood Venous blood specimen / Unknown Venipuncture / Unknown 11/13/2024 3:41 PM EDT 11/13/2024 3:59 PM EDT us Carolee Green GLUE COOK, DNP LAB BLOOD ORDERABLES Final Result [facility] [address] [place] [address] * (ABNORMAL) Basic metabolic panel (11/13/2024 12:20 PM EDT) Glucose, Plasma 130(H) 74 - 99 mg/dL 11/13/2024 1:15 PM EDT [facility] BUN, Plasma 54(H) 8 - 23 mg/dL 11/13/2024 1:15 PM EDT [facility] Creatinine, Plasma 2.95(H) 0.70 - 1.20 mg/dL 11/13/2024 1:15 PM EDT [facility] BUN/Creatinine Ratio 18 11/13/2024 1:15 PM EDT [facility] Sodium, Plasma 135(L) 136 - 145 mmol/L 11/13/2024 1:15 PM EDT [facility] Potassium, Plasma 4.5 3.6 - 4.9 mmol/L 11/13/2024 1:15 PM EDT [facility] Chloride, Plasma 101 97 - 107 mmol/L 11/13/2024 1:15 PM EDT [facility] CO2, Plasma 21(L) 22 - 29 mmol/L 11/13/2024 1:15 PM EDT [facility] Anion Gap 13 6 - 16 mmol/L 11/13/2024 1:15 PM EDT [facility] Total Calcium, Plasma 8.9 8.9 - 10.2 mg/dL 11/13/2024 1:15 PM EDT [facility] eGFRcr 22.5 mL/min/1.7 3m*2 11/13/2024 1:15 PM EDT [facility] Comment:Reported eGFRcr in m L/min/1.73m2 is based the CKD-EPI 2020 equation that does not use a race coefficient. Blood Arterial blood specimen / Unknown Venipuncture / Unknown 11/13/2024 12:20 PM EDT 11/13/2024 12:39 PM EDT us Carolee Green APRN, DNP LAB BLOOD ORDERABLES Final Result Performing Organization Address [facility] Co de Phone Number [facility] [address] [place] [address] * (ABNORMAL) POCT glucose meter (11/13/2024 11:53 AM EDT) POCT Glucose 139(H) 74 - 99 mg/dL 11/13/2024 11:55 AM EDT [facility] Comment:Accuracy of a glucos e result obtained from a capillary whole blood specimen relies upon adequate, non-compromised capillary blood flow. If the capillary glucose result is not consistent with the patient's clinical signs and symptoms, glucose testing should be repeated with either an arterial or venous sample on the glucometer or sent to the main labortory for testing. Comment 11/13/2024 11:55 AM EDT [facility] Self Storage Manager ID Cristine Kohler 11/13/2024 11:55 AM EDT [facility] Device ID [id number] 11/13/2024 11:55 AM EDT [facility] Specimen Type POC Capillary 11/13/2024 11:55 AM EDT [facility] Blood Capillary blood specimen / Unknown 11/13/2024 11:53 AM EDT 11/13/2024 11:55 AM EDT us Kan Lucero MD LAB POINT OF CARE TE ST DOCKED DEVICE UNSOLICITED RESULTS Final Result Performing Organization Address [facility] Co de Phone Number [facility] [address] [place] [address] * ECHO, ADULT TRANSTHORACIC COMPLETE (11/13/2024 10:59 AM EDT) BSA 2.26 m2 [facility] ISCV Height 178.0 [facility] ISCV Weight 109.0 [facility] ISCV LV EDV(MOD-4ch) 153 mL [facility] ISCV LV ESV(MOD4ch) 70 mL SAM[facility]E ISCV EF(MOD-sp4) 54 % SAM[facility]E ISCV LV EDV(MOD-2ch) 146 mL SAMMIE ISCV LV ESV(MOD2ch) 64 mL SAMMIE ISCV EF(MOD-sp2) 56 % SAMMIE ISCV EDV(MOD-bp) 150 mL SAMMIE ISCV ESV(MOD-bp) 67 mL SAMMIE ISCV EF(MOD-bp) 55 % SAMMIE ISCV MV E Vmax 78.0 cm/s SAMMIE ISCV MV A Vmax 90.9 cm/s [facility]E ISCV MV E/A 0.9 cm/s [facility] ISC[facility] LA dimension 47 mm [facility] ISCV TAPSE 17 mm [facility] ISCV PA acc time 100 msec [facility]E ISCV mean PAP 34 mmHg SAM[facility]E ISCV Ao V2 VTI 40.7 cm SAMMIE ISCV Ao mean PG 10 mmHg [facility]E ISCV Ao V2 Vmax 205.0 cm/s SAMMIE ISCV Ao max PG 17 mmHg SAM[facility]E ISCV MV dec time 310 ms SAMMIE ISCV MV P1/2t 90 ms [facility]E ISCV MVA(P1/2t) 2.4 cm2 [facility] ISCV Ao Root Diam 37 mm [facility]E ISCV PA NH(ACCEL) 36.3 mmHg SAMMIE ISCV LVLs ap2 7.3 mm SAMMIE ISCV Ao V2 mean 140.0 cm/s SAMMIE ISCV LV Lat e' Velocity 11.1 cm/s [facility] ISCV LV Sept e' Giorgio 9.1 cm/s SAMMIE ISCV Lat E/e' 7.0 SAM[facility]E ISCV Sep E/e' 8.6 [facility]E ISCV Avg E/e' 7.8 SAMMIE ISCV Anatomical Region Laterality Modality Echocardiography Narrative 11/13/2024 1:01 PM EDT Left Ventricle: The left ventricle is normal size. The left ventricular systolic function is hyperdynamic with an estimated left ventricular ejection fraction of >70%. The peak intracavitary gradient is 17 mmHg. The diastolic function is normal. No regional wall motion abnormalities are seen. Right Ventricle: The right ventricle is normal in size. The right ventricular systolic function is grossly normal. All cardiac valves were reasonably well interrogated with 2D imaging and/or Doppler assessment and no significant valve regurgitation or stenosis is seen. Pericardium: No pericardial effusion. Compared to the most recently available prior study, and allowing for differences in image quality and technique, there is no significant interval change noted. Left Ventricle The left ventricle is normal size. The left ventricular systolic function is hyperdynamic with an estimated left ventricular ejection fraction of >70%. The peak intracavitary gradient is 17 mmHg. The diastolic function is normal. No regional wall motion abnormalities are seen. Right Ventricle The right ventricle is normal in size. The right ventricular systolic function is grossly normal. Unable to estimate the right ventricular systolic pressure (RVSP) due to inadequate TR signal. Left Atrium The left atrial size is normal. The interatrial septum is intact with no evidence for an atrial septal defect. Right Atrium The right atrial size is normal. IVC/SVC Due to positive pressure ventilation, the right atrial pressure cannot be estimated. An assumed pressure of 8mmHg was used for calculations. Mitral Valve The mitral valve is grossly normal. There is no mitral regurgitation. There is no mitral stenosis. Tricuspid Valve The tricuspid valve is normal in appearance. There is no tricuspid regurgitation. There is no tricuspid stenosis. Aortic Valve The aortic valve appears grossly normal. There is no valvular regurgitation. There is no hemodynamically significant valvular aortic stenosis. Pulmonic Valve The pulmonic valve was not well visualized. There is no pulmonic regurgitation. There is no pulmonic stenosis. Pericardium No pericardial effusion. Great Vessels The sinus of Valsalva (aortic root) diameter is 37 mm by leading edge to leading edge method. The ascending aorta is not well visualized. The aortic arch is not well visualized. The main pulmonary artery is not well visualized. Study Details A complete transthoracic echocardiogram using two-dimensional (2D), m-mode, color and spectral flow Doppler imaging was performed. During the study the apical, subcostal and suprasternal view was captured. Overall the study quality was poor. Height: 178.0 cm. Weight: 109.0 kg. BSA: 2.26 m2. The heart rhythm during this exam was most suggestive of a sinus rhythm. Study Recommendation All cardiac valves were reasonably well interrogated with 2D imaging and/or Doppler assessment and no significant valve regurgitation or stenosis is seen. Compared to the most recently available prior study, and allowing for differences in image quality and technique, there is no significant interval change noted. Lucinda Chapin APRN CV ECHO PROCEDURES Final Result * (ABNORMAL) Basic metabolic panel (11/13/2024 7:45 AM EDT) Glucose, Plasma 167(H) 74 - 99 mg/dL 11/13/2024 8:30 AM EDT [facility] BUN, Plasma 57(H) 8 - 23 mg/dL 11/13/2024 8:30 AM EDT [facility] Creatinine, Plasma 3.66(H) 0.70 - 1.20 mg/dL 11/13/2024 8:30 AM EDT [facility] BUN/Creatinine Ratio 16 11/13/2024 8:30 AM EDT [facility] Sodium, Plasma 138 136 - 145 mmol/L 11/13/2024 8:30 AM EDT [facility] Potassium, Plasma 5.2(H) 3.6 - 4.9 mmol/L 11/13/2024 8:30 AM EDT [facility] Chloride, Plasma 103 97 - 107 mmol/L 11/13/2024 8:30 AM EDT [facility] CO2, Plasma 20(L) 22 - 29 mmol/L 11/13/2024 8:30 AM EDT [facility] Anion Gap 15 6 - 16 mmol/L 11/13/2024 8:30 AM EDT [facility] Total Calcium, Plasma 8.8(L) 8.9 - 10.2 mg/dL 11/13/2024 8:30 AM EDT [facility] eGFRcr 17.4 mL/min/1.7 3m*2 11/13/2024 8:30 AM EDT [facility] Comment:Reported eGFRcr in m L/min/1.73m2 is based the CKD-EPI 2020 equation that does not use a race coefficient. Blood Venous blood specimen / Unknown Venipuncture / Unknown 11/13/2024 7:45 AM EDT 11/13/2024 8:01 AM EDT us Carolee Green GLUE COOK, DNP LAB BLOOD ORDERABLES Final Result [facility] [address] [place] [address] * (ABNORMAL) Cystatin C (11/13/2024 7:45 AM EDT) Cystatin C 1.95(H) 0.61 - 0.95 mg/L 11/13/2024 9:16 AM EDT [facility] Blood Venous blood specimen / Unknown Venipuncture / Unknown 11/13/2024 7:45 AM EDT 11/13/2024 8:01 AM EDT us Carolee Green APRN, DNP LAB BLOOD ORDERABLES Final Result [facility] [address] [place] [address] * [facility] CRITICAL CARE, E/M 30-74 MINUTES (11/13/2024 7:19 AM EDT) Narrative Kan Lucero MD - 11/13/2024 7:19 AM EDT Kan Lucero MD 11/13/2024 4:00 PM Critical Care Performed by: Carolee Green APRN, DNP Authorized by: Carolee Green APRN, DNP Critical care provider statement: Critical care time (minutes): 32 Critical care time was exclusive of: Separately billable procedures and treating other patients Critical care was time spent personally by me on the following activities: Development of treatment plan with patient or surrogate, discussions with consultants, evaluation of patient's response to treatment, examination of patient, obtaining history from patient or surrogate, review of old charts, ordering and review of radiographic studies, ordering and review of laboratory studies, ordering and performing treatments and interventions and ventilator management Comments: This patient is critically ill with acute respiratory failure on noninasive ventilation and shock requiring vasopressors and IVF boluses to maintain vital organ perfusion. Thus far, I have spent the above referenced minutes, devoted solely to this patient managing life/organ supporting interventions that required physical assessment. This includes time spent making adjustments in ventilation settings, vasopressor medications and IV fluid administration, reviewing and adjusting antibiotics and all medications, discussion of patient with consultants and other care providers as well as updating patient and/or family (if patient by virtue of his/her condition is unable to participate in decision making). This does not include time spent performing separately billed procedures. Time is not concurrent with that of other providers. us Carolee Green APRN, DNP IN CLINIC/BEDSIDE OR DERABLES Final Result * (ABNORMAL) POCT glucose meter (11/13/2024 5:14 AM EDT) [facility] POCT Glucose 162(H) 74 - 99 mg/dL 11/13/2024 5:16 AM EDT [facility] Comment:Accuracy of a glucos e result obtained from a capillary whole blood specimen relies upon adequate, non-compromised capillary blood flow. If the capillary glucose result is not consistent with the patient's clinical signs and symptoms, glucose testing should be repeated with either an arterial or venous sample on the glucometer or sent to the main labortory for testing. Comment 11/13/2024 5:16 AM EDT [facility] Self Storage Manager ID Janice Chavez 11/14/19 5:16 AM EDT [facility] Device ID [id number] 11/13/2024 5:16 AM EDT [facility] Specimen Type POC Arterial 11/13/2024 5:16 AM EDT [facility] Blood Arterial blood specimen / Unknown 11/13/2024 5:14 AM EDT 11/13/2024 5:16 AM EDT Kan Lucero MD LAB POINT OF CARE TE ST DOCKED DEVICE UNSOLICITED RESULTS Final Result Performing Organization Address City/State/[facility] Co de Phone Number [facility] [address] [place] [address] * (ABNORMAL) Blood gas panel, arterial (11/13/2024 5:13 AM EDT) [facility] pH, Arterial 7.27(L) 7.31 - 7.42 LAB HEMATOLOGY METHOD 11/13/2024 5:21 AM EDT [facility] pCO2, Arterial 45 32 - 45 mmHg LAB HEMATOLOGY METHOD 11/13/2024 5:21 AM EDT [facility] pO2, Arterial 95 >80 mmHg LAB HEMATOLOGY METHOD 11/13/2024 5:21 AM EDT [facility] SO2, Measured, Arterial 98 94 - 98 % LAB HEMATOLOGY METHOD 11/13/2024 5:21 AM EDT [facility] Base Excess, Arterial -6.3(L) -2.0 - 3.0 mmol/L LAB HEMATOLOGY METHOD 11/13/2024 5:21 AM EDT [facility] Bicarbonate, Calculated, Arterial 20(L) 22 - 26 mmol/L LAB HEMATOLOGY METHOD 11/13/2024 5:21 AM EDT [facility] Hematocrit, Whole Blood 31.7(L) 40.0 - 51.0 % LAB HEMATOLOGY METHOD 11/13/2024 5:21 AM EDT [facility] Sodium, Whole Blood 135(L) 136 - 145 mmol/L LAB HEMATOLOGY METHOD 11/13/2024 5:21 AM EDT [facility] Potassium, Whole Blood 5.4(H) 3.6 - 4.9 mmol/L LAB HEMATOLOGY METHOD 11/13/2024 5:21 AM EDT [facility] Chloride, Whole Blood 103 97 - 107 mmol/L LAB HEMATOLOGY METHOD 11/13/2024 5:21 AM EDT [facility] Glucose, Whole Blood 163(H) 74 - 99 mg/dL LAB HEMATOLOGY METHOD 11/13/2024 5:21 AM EDT [facility] Ionized Calcium, Whole Blood 4.7 4.6 - 5.1 mg/dL LAB HEMATOLOGY METHOD 11/13/2024 5:21 AM EDT [facility] Lactate, Arterial, Whole Blood 0.7 0.5 - 1.6 mmol/L LAB HEMATOLOGY METHOD 11/13/2024 5:21 AM EDT [facility] Blood Arterial blood specimen / Unknown Arterial Puncture / Unknown 11/13/2024 5:13 AM EDT 11/13/2024 5:19 AM EDT us Leila HARPER LAB BLOOD ORDERABLES Final Result [facility] [address] [place] [address] * (ABNORMAL) Blood gas panel, arterial (11/13/2024 1:58 AM EDT) pH, Arterial 7.20(LL) 7.31 - 7.42 LAB HEMATOLOGY METHOD 11/13/2024 2:05 AM EDT [facility] pCO2, Arterial 48(H) 32 - 45 mmHg LAB HEMATOLOGY METHOD 11/13/2024 2:05 AM EDT [facility] pO2, Arterial 101 >80 mmHg LAB HEMATOLOGY METHOD 11/13/2024 2:05 AM EDT [facility] SO2, Measured, Arterial 97 94 - 98 % LAB HEMATOLOGY METHOD 11/13/2024 2:05 AM EDT [facility] Base Excess, Arterial -9.0(L) -2.0 - 3.0 mmol/L LAB HEMATOLOGY METHOD 11/13/2024 2:05 AM EDT [facility] Bicarbonate, Calculated, Arterial 19(L) 22 - 26 mmol/L LAB HEMATOLOGY METHOD 11/13/2024 2:05 AM EDT [facility] Hematocrit, Whole Blood 32.9(L) 40.0 - 51.0 % LAB HEMATOLOGY METHOD 11/13/2024 2:05 AM EDT [facility] Sodium, Whole Blood 134(L) 136 - 145 mmol/L LAB HEMATOLOGY METHOD 11/13/2024 2:05 AM EDT [facility] Potassium, Whole Blood 5.2(H) 3.6 - 4.9 mmol/L LAB HEMATOLOGY METHOD 11/13/2024 2:05 AM EDT [facility] Chloride, Whole Blood 103 97 - 107 mmol/L LAB HEMATOLOGY METHOD 11/13/2024 2:05 AM EDT [facility] Glucose, Whole Blood 141(H) 74 - 99 mg/dL LAB HEMATOLOGY METHOD 11/13/2024 2:05 AM EDT [facility] Ionized Calcium, Whole Blood 4.7 4.6 - 5.1 mg/dL LAB HEMATOLOGY METHOD 11/13/2024 2:05 AM EDT [facility] Lactate, Arterial, Whole Blood 0.5 0.5 - 1.6 mmol/L LAB HEMATOLOGY METHOD 11/13/2024 2:05 AM EDT [facility] Blood Arterial blood specimen / Unknown Arterial Puncture / Unknown 11/13/2024 1:58 AM EDT 11/13/2024 2:03 AM EDT us Kan Lucero MD LAB BLOOD ORDERABLES Final Resu lt [facility] [address] [place] [address] * (ABNORMAL) Phosphorus (11/13/2024 1:58 AM EDT) Phosphorus, Plasma 5.1(H) 2.5 - 4.5 mg/dL 11/13/2024 2:40 AM EDT [facility] Blood Arterial blood specimen / Unknown Arterial Puncture / Unknown 11/13/2024 1:58 AM EDT 11/13/2024 2:10 AM EDT us Kan Lucero MD LAB BLOOD ORDERABLES Final Resu lt Performing Organization Address [facility]/ZIP Co de Phone Number [facility] [address] [place] [address] * Magnesium (11/13/2024 1:58 AM EDT) Magnesium, Plasma 2.1 1.9 - 2.4 mg/dL 11/13/2024 2:40 AM EDT [facility] Blood Arterial blood specimen / Unknown Arterial Puncture / Unknown 11/13/2024 1:58 AM EDT 11/13/2024 2:10 AM EDT us Kan Lucero MD LAB BLOOD ORDERABLES Final Resu lt Performing Organization Address City/[facility]/ZIP Co de Phone Number [facility] [address] [place] [address] * (ABNORMAL) Serum Drug Screen (11/13/2024 1:58 AM EDT) 9 Carboxy THC <5 <5 ng/mL 11/16/2024 3:33 PM EDT [facility] Alprazolam <5 <5 ng/mL 11/16/2024 3:33 PM EDT [facility] Amphetamine <10 <10 ng/mL 11/16/2024 3:33 PM EDT [facility] Benzolyecgonine <20 <20 ng/mL 3:33 PM EDT [facility] Buprenorphine <1.0 <1.0 ng/mL 11/16/2024 3:33 PM EDT [facility] Butalbital <50 <50 ng/mL 11/16/2024 3:33 PM EDT [facility] Clonazepam <5 <5 ng/mL 11/16/2024 3:33 PM EDT [facility] Codeine <5 <5 ng/mL 11/16/2024 3:33 PM EDT [facility] Diazepam <5 <5 ng/mL 11/16/2024 3:33 PM EDT [facility] Fentanyl <1 <1 ng/mL 11/16/2024 3:33 PM EDT [facility] Hydrocodone <2 <2 ng/mL 11/16/2024 3:33 PM EDT [facility] Hydromorphone <5 <5 ng/mL 11/16/2024 3:33 PM EDT [facility] Lorazepam <5 <5 ng/mL 11/16/2024 3:33 PM EDT [facility] MDA <10 <10 ng/mL 11/16/2024 3:33 PM EDT [facility] MDMA <10 <10 ng/mL 11/16/2024 3:33 PM EDT [facility] Meperidine <5 <5 ng/mL 11/16/2024 3:33 PM EDT [facility] Methadone <10 <10 ng/mL 11/16/2024 3:33 PM EDT [facility] Methadone Metabolite <10 <10 ng/mL 08/2024 3:33 PM EDT [facility] Methamphetamine <10 <10 ng/mL 3:33 PM EDT [facility] Midazolam <5 <5 ng/mL 11/16/2024 3:33 PM EDT [facility] Morphine <2 <2 ng/mL 11/16/2024 3:33 PM EDT [facility] Norbuprenorphine <5 <5 ng/mL 11/17/19 3:33 PM EDT [facility] Nordiazepam <10 <10 ng/mL 11/16/2024 3:33 PM EDT [facility] Oxazepam <5 <5 ng/mL 11/16/2024 3:33 PM EDT [facility] Oxycodone 6(H) <2 ng/mL 11/16/2024 3:33 PM EDT [facility] Oxymorphone <2 <2 ng/mL 11/16/2024 3:33 PM EDT [facility] Phenobarbital <50 <50 ng/mL 11/16/2024 3:33 PM EDT [facility] Temazepam <5 <5 ng/mL 11/16/2024 3:33 PM EDT [facility] Tramadol <20 <20 ng/mL 11/16/2024 3:33 PM EDT [facility] Blood Arterial blood specimen / Unknown Arterial Puncture / Unknown 11/13/2024 1:58 AM EDT 11/14/2024 8:23 AM EDT Narrative [facility] - 11/16/2024 3:33 PM EDT Test performed by LC-MS/MS at the [facility]. This test was developed and its performance characteristics determined by [facility]. It has not been cleared or approved by the FDA. The laboratory is regulated under CLIA as qualified to perform high-complexity testing. This test is used for clinical purposes. Lucinda Chapin APRN LAB BLOOD ORDERABLES Lenka l Result [facility] [address] [place] [address] * (ABNORMAL) Basic metabolic panel (11/13/2024 1:58 AM EDT) Glucose, Plasma 142(H) 74 - 99 mg/dL 11/13/2024 2:40 AM EDT [facility] BUN, Plasma 62(H) 8 - 23 mg/dL 11/13/2024 2:40 AM EDT [facility] Creatinine, Plasma 4.97(H) 0.70 - 1.20 mg/dL 11/13/2024 2:40 AM EDT [facility] BUN/Creatinine Ratio 12 11/13/2024 2:40 AM EDT [facility] Sodium, Plasma 133(L) 136 - 145 mmol/L 11/13/2024 2:40 AM EDT [facility] Potassium, Plasma 5.5(H) 3.6 - 4.9 mmol/L 11/13/2024 2:40 AM EDT [facility] Chloride, Plasma 100 97 - 107 mmol/L 11/13/2024 2:40 AM EDT [facility] CO2, Plasma 17(L) 22 - 29 mmol/L 11/13/2024 2:40 AM EDT [facility] Anion Gap 16 6 - 16 mmol/L 11/13/2024 2:40 AM EDT [facility] Total Calcium, Plasma 8.6(L) 8.9 - 10.2 mg/dL 11/13/2024 2:40 AM EDT [facility] eGFRcr 12.0 mL/min/1.7 3m*2 11/13/2024 2:40 AM EDT [facility] Comment:Reported eGFRcr in m L/min/1.73m2 is based the CKD-EPI 2020 equation that does not use a race coefficient. Blood Arterial blood specimen / Unknown Arterial Puncture / Unknown 11/13/2024 1:58 AM EDT 11/13/2024 2:10 AM EDT us Kan Lucero MD LAB BLOOD ORDERABLES Final Resu lt Performing Organization Address City/[facility]/ZIP Co de Phone Number [facility] [address] [place] [address] * Ionized calcium, serum (11/13/2024 1:58 AM EDT) Ionized Calcium, Serum 4.8 4.6 - 5.3 mg/dL LAB HEMATOLOGY METHOD 11/13/2024 2:47 AM EDT [facility] Blood Arterial blood specimen / Unknown Arterial Puncture / Unknown 11/13/2024 1:58 AM EDT 11/13/2024 2:10 AM EDT us Lucinda Chapin APRN LAB BLOOD ORDERABLES Lenka l Result [facility] [address] [place] [address] * (ABNORMAL) CBC W/O Differential (11/13/2024 1:58 AM EDT) WBC Count 10.29 3.70 - 10.30 10*3/uL LAB HEMATOLOGY METHOD 11/13/2024 2:17 AM EDT [facility] RBC Count 3.49(L) 4.60 - 6.10 10*6/uL LAB HEMATOLOGY METHOD 11/13/2024 2:17 AM EDT [facility] HGB 10.7(L) 13.7 - 17.5 g/dL LAB HEMATOLOGY METHOD 11/13/2024 2:17 AM EDT [facility] HCT 32.6(L) 40.0 - 51.0 % LAB HEMATOLOGY METHOD 11/13/2024 2:17 AM EDT [facility] Platelet Count 174 155 - 369 10*3/uL LAB HEMATOLOGY METHOD 11/13/2024 2:17 AM EDT [facility] MCV 93 79 - 98 fL LAB HEMATOLOGY METHOD 11/13/2024 2:17 AM EDT [facility] MCH 30.7 26.0 - 32.0 pg LAB HEMATOLOGY METHOD 11/13/2024 2:17 AM EDT [facility] MCHC 32.8 30.7 - 35.5 g/dL LAB HEMATOLOGY METHOD 11/13/2024 2:17 AM EDT [facility] RDW 13.5 11.5 - 14.5 % LAB HEMATOLOGY METHOD 11/13/2024 2:17 AM EDT [facility] MPV 10.8 8.8 - 12.5 fL LAB HEMATOLOGY METHOD 11/13/2024 2:17 AM EDT [facility] nRBC 0.0 <=0.0 per 100 WBCs LAB HEMATOLOGY METHOD 11/13/2024 2:17 AM EDT [facility] Blood Arterial blood specimen / Unknown Arterial Puncture / Unknown 11/13/2024 1:58 AM EDT 11/13/2024 2:11 AM EDT us Lucinda Chapin APRN LAB BLOOD ORDERABLES Lenka simpson Result [facility] [address] [place] [address] * (ABNORMAL) Respiratory Culture and Gram Stain (11/12/2024 11:57 PM EDT) Culture Moderate Growth 8:03 AM EDT [facility] Culture 2+ Mixed upper respiratory tiffanie(A) 11/17/2024 8:03 AM EDT [facility] Comment:The organism value f or this result has been updated. These results have been appended to the previously preliminary verified report. Culture 3+ Streptococcus pneumoniae(A) 11/17/2024 8:03 AM EDT [facility] Comment: CAUTION: If your patient has signs and symptoms suggesting meningitis call [phone] (OFERTALDIA) for appropriate susceptibility results to Penicillin and Ceftriaxone. Susceptibility results listed here are for Streptococcus pneumoniae non- meningitis treatment only. Break points differ for LANDMAN infections. The organism value for this result has been updated. These results have been appended to the previously preliminary verified report. Gram Stain Result Greater than 25 WBC/LPF(A) 11/17/2024 8:03 AM EDT [facility] Gram Stain Result Fewer than 10 Epithelial cells/LPF(A) 11/17/2024 8:03 AM EDT [facility] Gram Stain Result Moderate Gram positive rods(A) 11/17/2024 8:03 AM EDT [facility] Gram Stain Result Moderate Gram positive cocci in pairs(A) 11/17/2024 8:03 AM EDT [facility] Gram Stain Result Few Yeast(A) 11/17 8:03 AM EDT [facility] Sputum Coughed sputum specimen / Unknown Non-blood Collection / Unknown 11/12/2024 11:57 PM EDT 11/13/2024 2:03 AM EDT Narrative Organism Antibiotic Method Susceptibility Streptococcus pneumoniae Ceftriaxone (Non-meningitis) ETEST 1.0 ug/ml: Susceptible Streptococcus pneumoniae Erythromycin ETEST 4.0 ug/ml: Resistant Streptococcus pneumoniae Levofloxacin ETEST 0.50 ug/ml: Susceptible Streptococcus pneumoniae Penicillin pare nteral (Non-meningitis) ETEST 1.0 ug/ml: Susceptible Streptococcus pneumoniae Tetracycline ETEST 0.125 ug/ml: Susceptible Streptococcus pneumoniae Trimethoprim/Coyle lfamethoxaz ole ETEST 0.125 ug/ml: Susceptible us Lucinda Chapin GLUE COOK LAB MICROBIOLOGY - GENERA L ORDERABLES Final Result [facility] [address] [place] [address] * (ABNORMAL) POCT glucose meter (11/12/2024 11:48 PM EDT) POCT Glucose 136(H) 74 - 99 mg/dL 11/12/2024 11:50 PM EDT [facility] Comment:Accuracy of a glucos e result obtained from a capillary whole blood specimen relies upon adequate, non-compromised capillary blood flow. If the capillary glucose result is not consistent with the patient's clinical signs and symptoms, glucose testing should be repeated with either an arterial or venous sample on the glucometer or sent to the main labortory for testing. Comment 11/12/2024 11:50 PM EDT [facility] Self Storage Manager ID Janice Chavez 11/13/19 11:50 PM EDT [facility] Device ID [id number] 11/12/2024 11:50 PM EDT [facility] Specimen Type POC Capillary 11/12/2024 11:50 PM EDT [facility] Blood Capillary blood specimen / Unknown 11/12/2024 11:48 PM EDT 11/12/2024 11:50 PM EDT Kan Lucero MD LAB POINT OF CARE TE ST DOCKED DEVICE UNSOLICITED RESULTS Final Result Performing Organization Address [facility] de Phone Number [facility] [address] [place] [address] * XR Chest 1 View (11/12/2024 10:51 PM EDT) Anatomical Region Laterality Modality Chest Digital Radiogra phy Impressions 11/12/2024 11:04 PM EDT Left IJ CVC in the proximal SVC. No pneumothorax. Slight worsening of bilateral airspace disease. CRITICAL RESULT: No. COMMUNICATION: Per this written report. Drafted by Shanna Camargo MD on 11/12/2024 11:03 PM Final report signed by Shanna Camargo MD on 11/12/2024 11:04 PM Narrative 11/12/2024 11:04 PM EDT CLINICAL INDICATION: CVC placement TECHNIQUE: XR CHEST 1 VIEW COMPARISON: 11/12/2024 FINDINGS: Left internal jugular central venous catheter tip in the SVC. Persistent low lung volumes. Slight worsening bilateral airspace disease. No pneumothorax. Stable cardiac silhouette. Procedure Note Shanna Camargo MD - 11/12/2024 CLINICAL INDICATION: CVC placement TECHNIQUE: XR CHEST 1 VIEW COMPARISON: 11/12/2024 FINDINGS: Left internal jugular central venous catheter tip in the SVC. Persistentlow lung volumes. Slight worsening bilateral airspace disease. Nopneumothorax. Stable cardiac silhouette. IMPRESSION: Left IJ CVC in the proximal SVC. No pneumothorax. Slight worsening of bilateral airspace disease. CRITICAL RESULT: No. COMMUNICATION: Per this written report. Drafted by Shanna Camargo MD on 11/12/2024 11:03 PM Final report signed by Shanna Camargo MD on 11/12/2024 11:04 PM us Kan Lucero MD IMG XR PROCEDURES Final Result * [facility] Cristian/Josey 30-74 MINUTES (11/12/2024 10:26 PM EDT) Narrative Jj Wagner MD - 11/12/2024 10:26 PM EDT Jj Wagner MD 11/13/2024 12:06 AM Critical Care Performed by: Lucinda Chapin APRN Authorized by: Lucinda Chapin APRN Critical care provider statement: Critical care time (minutes): 60 Critical care time was exclusive of: Separately billable procedures and treating other patients and teaching time Critical care was time spent personally by me on the following activities: Obtaining history from patient or surrogate, examination of patient, evaluation of patient's response to treatment, discussions with primary provider, development of treatment plan with patient or surrogate, review of old charts, ordering and review of radiographic studies, ordering and review of laboratory studies and ordering and performing treatments and interventions Comments: This patient is critically ill with shock requiring vasopressors and IVF boluses to maintain vital organ perfusion. Thus far, I have spent the above referenced minutes, devoted solely to this patient managing life/organ supporting interventions that required physical assessment. This includes time spent making adjustments in vasopressor medications and IV fluid administration, reviewing and adjusting antibiotics and all medications, discussion of patient with consultants and other care providers as well as updating patient and/or family (if patient by virtue of his/her condition is unable to participate in decision making). This does not include time spent performing separately billed procedures. Time is not concurrent with that of other providers. us Lucinda Chapin APRN IN CLINIC/BEDSIDE ORDERAB LES Final Result * NH INSERT NON-TUNNEL CV CATH, HC INSERT NON-TUNNEL CV CATH, CVC TRIPLE LUMEN (SMARTFORM LINK) (11/12/2024 9:58 PM EDT) Narrative Lucinda Chapin APRN - 11/12/2024 9:58 PM EDT Lucinda Chapin APRN 11/13/2024 1:34 AM Central Line Performed by: Leila Maria PA Authorized by: Leila Maria PA Consent: Consent obtained: Verbal Consent given by: Healthcare agent Risks, benefits, and alternatives were discussed: yes Risks discussed: Bleeding, arterial puncture and infection Alternatives discussed: Delayed treatment [place] protocol: Procedure explained and questions answered to patient or proxy's satisfaction: yes Relevant documents present and verified: yes Immediately prior to procedure, a time out was called: yes Patient identity confirmed: Arm band and hospital-assigned identification number Attending Supervision?: no Pre-procedure details: Indication(s): central venous access and insufficient peripheral access Hand hygiene: Hand hygiene performed prior to insertion Sterile barrier technique: All elements of maximal sterile technique followed Skin preparation: Chlorhexidine Skin preparation agent: Skin preparation agent completely dried prior to procedure Sedation: Sedation type: None Anesthesia: Anesthesia method: Local infiltration Local anesthetic: Lidocaine 1% w/o epi Procedure details: Location: L internal jugular Patient position: Supine Procedural supplies: Triple lumen Catheter size: 7 Fr Landmarks identified: yes Ultrasound guidance: yes Ultrasound guidance timing: real time Sterile ultrasound techniques: Sterile gel and sterile probe covers were used Number of attempts: 1 Successful placement: yes Post-procedure details: Post-procedure: Dressing applied and line sutured Assessment: Blood return through all ports, free fluid flow, no pneumothorax on x-ray and placement verified by x-ray Procedure completion: Tolerated us Leila HARPER IN CLINIC/BEDSIDE ORDERABLE S Final Result * NH INSERT CATH,ART,PERCUT,SHORTTERM, HC INSERT CATH,ART,PERCUT,SHORTTERM (11/12/2024 9:42 PM EDT) Narrative Lucinda Chapin APRN - 11/12/2024 9:42 PM EDT Lucinda Chapin APRN 11/12/2024 9:43 PM Arterial line Performed by: Lucinda Chapin APRN Authorized by: Lucinda Chapin APRN Consent: Consent obtained: Verbal Consent given by: Guardian, patient and spouse Risks, benefits, and alternatives were discussed: yes Risks discussed: Bleeding, pain, infection, repeat procedure and ischemia [place] protocol: Procedure explained and questions answered to patient or proxy's satisfaction: yes Immediately prior to procedure, a time out was called: yes Patient identity confirmed: Arm band and hospital-assigned identification number Attending Supervision?: no Indications: Indications: hemodynamic monitoring and multiple ABGs Pre-procedure details: Skin preparation: Chlorhexidine Sedation: Sedation type: None Anesthesia: Anesthesia method: None Procedure details: Location: L radial Joe's test performed: yes Needle gauge: 20 G Placement technique: Ultrasound guided Number of attempts: 1 Transducer: waveform confirmed Post-procedure details: Post-procedure: Sterile dressing applied, secured with tape and sutured CMS: Normal Procedure completion: Tolerated well, no immediate complications Lucinda Chapin APRN IV THERAPY ORDERABLES Fin al Result * (ABNORMAL) POCT glucose meter (11/12/2024 9:41 PM EDT) POCT Glucose 122(H) 74 - 99 mg/dL 11/12/2024 9:42 PM EDT [facility] Comment:Accuracy of a glucos e result obtained from a capillary whole blood specimen relies upon adequate, non-compromised capillary blood flow. If the capillary glucose result is not consistent with the patient's clinical signs and symptoms, glucose testing should be repeated with either an arterial or venous sample on the glucometer or sent to the main labortory for testing. Comment 11/12/2024 9:42 PM EDT [facility] Self Storage Manager ID Janice Chavez 11/13/19 9:42 PM EDT [facility] Device ID [id number] 11/12/2024 9:42 PM EDT [facility] Specimen Type POC Capillary 11/12/2024 9:42 PM EDT [facility] Blood Capillary blood specimen / Unknown 11/12/2024 9:41 PM EDT 11/12/2024 9:42 PM EDT us Kan Lucero MD LAB POINT OF CARE TE ST DOCKED DEVICE UNSOLICITED RESULTS Final Result Performing Organization Address [facility] de Phone Number [facility] [address] [place] [address] * POCT glucose meter (11/12/2024 9:09 PM EDT) [facility] POCT Glucose 84 74 - 99 mg/dL 11/12/2024 9:11 PM EDT [facility] Comment:Accuracy of a glucos e result obtained from a capillary whole blood specimen relies upon adequate, non-compromised capillary blood flow. If the capillary glucose result is not consistent with the patient's clinical signs and symptoms, glucose testing should be repeated with either an arterial or venous sample on the glucometer or sent to the main labortory for testing. Comment 11/12/2024 9:11 PM EDT [facility] Self Storage Manager ID Janice Chavez 11/13/19 9:11 PM EDT [facility] Device ID [id number] 11/12/2024 9:11 PM EDT [facility] Specimen Type POC Capillary 11/12/2024 9:11 PM EDT [facility] Blood Capillary blood specimen / Unknown 11/12/2024 9:09 PM EDT 11/12/2024 9:11 PM EDT us Kan Lucero MD LAB POINT OF CARE TE ST DOCKED DEVICE UNSOLICITED RESULTS Final Result Performing Organization Address City/[facility] Co de Phone Number [facility] [address] [place] [address] * (ABNORMAL) POCT glucose meter (11/12/2024 8:30 PM EDT) [facility] POCT Glucose 150(H) 74 - 99 mg/dL 11/12/2024 8:32 PM EDT [facility] Comment:Accuracy of a glucos e result obtained from a capillary whole blood specimen relies upon adequate, non-compromised capillary blood flow. If the capillary glucose result is not consistent with the patient's clinical signs and symptoms, glucose testing should be repeated with either an arterial or venous sample on the glucometer or sent to the main labortory for testing. Comment 11/12/2024 8:32 PM EDT [facility] Self Storage Manager ID Janice Chavez 11/13/19 8:32 PM EDT [facility] Device ID [id number] 11/12/2024 8:32 PM EDT [facility] Specimen Type POC Venous 11/12/2024 8:32 PM EDT [facility] Blood Venous blood specimen / Unknown 11/12/2024 8:30 PM EDT 11/12/2024 8:32 PM EDT us Kan Lucero MD LAB POINT OF CARE TE ST DOCKED DEVICE UNSOLICITED RESULTS Final Result Performing Organization Address [facility] Co de Phone Number [facility] [address] [place] [address] * (ABNORMAL) Potassium (11/12/2024 8:29 PM EDT) Potassium, Plasma 5.1(H) 3.6 - 4.9 mmol/L 11/12/2024 9:02 PM EDT [facility] Blood Venous blood specimen / Unknown Venipuncture / Unknown 11/12/2024 8:29 PM EDT 11/12/2024 8:37 PM EDT us Lucinda Chapin APRN LAB BLOOD ORDERABLES Lenka l Result [facility] [address] [place] [address] * US Renal Complete (11/12/2024 8:26 PM EDT) Anatomical Region Laterality Modality Kidney Ultrasound Impressions 11/12/2024 9:53 PM EDT Limited visualization of the kidneys due to bowel gas. Parenchymal thinning. Bilateral renal cysts. No hydronephrosis. CRITICAL RESULT: No. COMMUNICATION: Per this written report. Drafted by Shanna Camargo MD on 11/12/2024 9:50 PM Final report signed by Shanna Camargo MD on 11/12/2024 9:53 PM Narrative 11/12/2024 9:53 PM EDT CLINICAL INDICATION: Acute renal failure TECHNIQUE: Multiplanar static and cine burns scale ultrasound images of the kidneys and urinary bladder were obtained, accompanied by selective color Doppler ultrasound images. COMPARISON: CT August 16, 2023. FINDINGS: Right Kidney: Partially obscured by bowel gas. There is parenchymal thinning. Length 10.1 cm. No hydronephrosis, obvious calculi or discernible mass. Renal cyst measuring up to 1.7 cm. Left Kidney: Partially obscured by bowel gas. There is parenchymal thinning. Length 11.6 cm. No hydronephrosis, obvious calculi or discernible mass. Multiple cysts largest measuring up to 10.2 cm. Urinary bladder: Decompressed with Oconnell catheter.. Procedure Note Shanna Camargo MD - 11/12/2024 CLINICAL INDICATION: Acute renal failure TECHNIQUE: Multiplanar static and cine burns scale ultrasound images of the kidneysand urinary bladder were obtained, accompanied by selective color Dopplerultrasound images. COMPARISON: CT August 16, 2023. FINDINGS: Right Kidney: Partially obscured by bowel gas. There is parenchymalthinning. Length 10.1 cm. No hydronephrosis, obvious calculi ordiscernible mass. Renal cyst measuring up to 1.7 cm. Left Kidney: Partially obscured by bowel gas. There is parenchymalthinning. Length 11.6 cm. No hydronephrosis, obvious calculi ordiscernible mass. Multiple cysts largest measuring up to 10.2 cm. Urinary bladder: Decompressed with Oconnell catheter.. IMPRESSION: Limited visualization of the kidneys due to bowel gas. Parenchymal thinning. Bilateral renal cysts. No hydronephrosis. CRITICAL RESULT: No. COMMUNICATION: Per this written report. Drafted by Shanna Camargo MD on 11/12/2024 9:50 PM Final report signed by Shanna Camargo MD on 11/12/2024 9:53 PM us Lucinda Chapin GLUE COOK IMG US PROCEDURES Final R esult * (ABNORMAL) POCT glucose meter (11/12/2024 7:57 PM EDT) POCT Glucose 129(H) 74 - 99 mg/dL 11/12/2024 7:58 PM EDT [facility] Comment:Accuracy of a glucos e result obtained from a capillary whole blood specimen relies upon adequate, non-compromised capillary blood flow. If the capillary glucose result is not consistent with the patient's clinical signs and symptoms, glucose testing should be repeated with either an arterial or venous sample on the glucometer or sent to the main labortory for testing. Comment 11/12/2024 7:58 PM EDT [facility] Self Storage Manager ID Janice Chavez 11/13/19 7:58 PM EDT [facility] Device ID [id number] 11/12/2024 7:58 PM EDT [facility] Specimen Type POC Capillary 11/12/2024 7:58 PM EDT [facility] Blood Capillary blood specimen / Unknown 11/12/2024 7:57 PM EDT 11/12/2024 7:58 PM EDT Kan Lucero MD LAB POINT OF CARE TE ST DOCKED DEVICE UNSOLICITED RESULTS Final Result Performing Organization Address City/[facility]/ZIP Co de Phone Number [facility] [address] [place] [address] * ECG - RT (11/12/2024 7:56 PM EDT) EKG DIAGNOSIS CLASS Abnormal MUSE ECG Ventricular Rate 63 BPM MUSE ECG Atrial Rate 63 BPM MUSE ECG NH Interval 186 ms MUSE ECG QRSD Interval 152 ms MUSE ECG QT Interval 424 ms MUSE ECG QTC Interval 433 ms MUSE ECG P [place] 54 degrees MUSE ECG R [place] -7 degrees MUSE ECG T Wave [place] 32 degrees MUSE ECG Diagnosis Normal sinus rhythm MUSE ECG Diagnosis Right bundle branch block MUSE ECG Diagnosis Abnormal ECG MUSE ECG Diagnosis MUSE ECG Diagnosis Confirmed by Umer Harmon ([id number]) on 11/13/2024 2:00:05 PM MUSE ECG 11/12/2024 7:56 PM EDT 11/13/2024 2:00 PM EDT us Lucinda Chapin APRN ECG ORDERABLES Final Res ult MUSE ECG * BETA HYDROXYBUTYRIC ACID (11/12/2024 7:03 PM EDT) Beta-Hydroxybut yric Acid, Plasma 0.16 <=0.27 mmol/L 11/12/2024 7:39 PM EDT [facility] Blood Venous blood specimen / Unknown Venipuncture / Unknown 11/12/2024 7:03 PM EDT 11/12/2024 7:06 PM EDT us Lucinda Chapin GLUE COOK LAB BLOOD ORDERABLES Lenka l Result [facility] [address] [place] [address] * (ABNORMAL) Phosphorus, Plasma (11/12/2024 7:03 PM EDT) Phosphorus, Plasma 6.3(H) 2.5 - 4.5 mg/dL 11/12/2024 7:39 PM EDT [facility] Blood Venous blood specimen / Unknown Venipuncture / Unknown 11/12/2024 7:03 PM EDT 11/12/2024 7:06 PM EDT us Lucinda Chapin APRN LAB BLOOD ORDERABLES Lenka l Result Performing Organization Address City/[facility]/[place] [address] * Magnesium, Plasma (11/12/2024 7:03 PM EDT) Magnesium, Plasma 2.2 1.9 - 2.4 mg/dL 11/12/2024 7:39 PM EDT [facility] Blood Venous blood specimen / Unknown Venipuncture / Unknown 11/12/2024 7:03 PM EDT 11/12/2024 7:06 PM EDT us Lucinda Chapin GLUE COOK LAB BLOOD ORDERABLES Lenka l Result [facility] [address] [place], [place] [id number] * (ABNORMAL) Basic Metabolic Panel, Plasma (11/12/2024 7:03 PM EDT) Glucose, Plasma 110(H) 74 - 99 mg/dL 11/12/2024 7:39 PM EDT [facility] BUN, Plasma 64(H) 8 - 23 mg/dL 11/12/2024 7:39 PM EDT [facility] Creatinine, Plasma 6.78(H) 0.70 - 1.20 mg/dL 11/12/2024 7:39 PM EDT [facility] BUN/Creatinine Ratio 9 11/12/2024 7:39 PM EDT [facility] Sodium, Plasma 131(L) 136 - 145 mmol/L 11/12/2024 7:39 PM EDT [facility] Potassium, Plasma 5.3(H) 3.6 - 4.9 mmol/L 11/12/2024 7:39 PM EDT [facility] Chloride, Plasma 100 97 - 107 mmol/L 11/12/2024 7:39 PM EDT [facility] CO2, Plasma 18(L) 22 - 29 mmol/L 11/12/2024 7:39 PM EDT [facility] Anion Gap 13 6 - 16 mmol/L 11/12/2024 7:39 PM EDT [facility] Total Calcium, Plasma 7.9(L) 8.9 - 10.2 mg/dL 11/12/2024 7:39 PM EDT [facility] eGFRcr 8.3 mL/min/1.7 3m*2 11/12/2024 7:39 PM EDT [facility] Comment:Reported eGFRcr in m L/min/1.73m2 is based the CKD-EPI 2020 equation that does not use a race coefficient. Blood Venous blood specimen / Unknown Venipuncture / Unknown 11/12/2024 7:03 PM EDT 11/12/2024 7:06 PM EDT us Lucinda Chapin APRN LAB BLOOD ORDERABLES Lenka l Result [facility] [address] [place] [address] * XR Chest 1 View - bedside (11/12/2024 6:59 PM EDT) Anatomical Region Laterality Modality Chest Digital Radiogra phy Impressions 11/12/2024 7:38 PM EDT Bilateral multifocal airspace disease. CRITICAL RESULT: No. COMMUNICATION: Per this written report. Drafted by Shanna Camargo MD on 11/12/2024 7:37 PM Final report signed by Shanna Camargo MD on 11/12/2024 7:38 PM Narrative 11/12/2024 7:38 PM EDT CLINICAL INDICATION: Respiratory failure TECHNIQUE: XR CHEST 1 VIEW COMPARISON: Outside CT November 12, 2024. FINDINGS: Bilateral multifocal airspace disease. No pleural effusion. No pneumothorax. Stable cardiac silhouette. Procedure Note Shanna Camargo MD - 11/12/2024 CLINICAL INDICATION: Respiratory failure TECHNIQUE: XR CHEST 1 VIEW COMPARISON: Outside CT November 12, 2024. FINDINGS: Bilateral multifocal airspace disease. No pleural effusion. Nopneumothorax. Stable cardiac silhouette. IMPRESSION: Bilateral multifocal airspace disease. CRITICAL RESULT: No. COMMUNICATION: Per this written report. Drafted by Shanna Camargo MD on 11/12/2024 7:37 PM Final report signed by Shanna Camargo MD on 11/12/2024 7:38 PM us Lucinda Chapin APRN IMG XR PROCEDURES Final R esult * Urinalysis Microscopic Examination (11/12/2024 6:57 PM EDT) Urine Urine specimen obtained by clean catch procedure / Unknown Non-blood Collection / Unknown 11/12/2024 6:57 PM EDT 11/12/2024 7:06 PM EDT us Lucinda Chapin APRN LAB URINE ORDERABLES Lenka l Result [facility] [address] [place] [address] * (ABNORMAL) Comprehensive Urine Drug Screening, Qualitative Assay, >= 27 Drug Classes (56:57 PM EDT) Acetaminophen Positive(A) Negative 11/24/2024 3:23 PM EDT [facility] Alprazolam Negative Negative 11/24/2024 3:23 PM EDT [facility] Amantadine Negative Negative 11/24/2024 3:23 PM EDT [facility] Amitriptyline Negative Negative 11/24/2024 3:23 PM EDT [facility] Amphetamine Negative Negative 11/24/2024 3:23 PM EDT [facility] Atenolol Negative Negative 11/24/2024 3:23 PM EDT [facility] Benzoylecgonine Negative Negative 3:23 PM EDT [facility] Bisoprolol Negative Negative 11/24/2024 3:23 PM EDT [facility] Bupropion Negative Negative 11/24/2024 3:23 PM EDT [facility] Butalbital Negative Negative 11/24/2024 3:23 PM EDT [facility] Carbamazepine Negative Negative 11/24/2024 3:23 PM EDT [facility] Carisoprodol Negative Negative 11/24/2024 3:23 PM EDT [facility] Chlorpheniramine Negative Negative 11/25/19 3:23 PM EDT [facility] Citalopram Negative Negative 11/24/2024 3:23 PM EDT [facility] Clindamycin Negative Negative 11/24/2024 3:23 PM EDT [facility] Clonidine Negative Negative 11/24/2024 3:23 PM EDT [facility] Clopidogrel / Ticlopidine Negative Negative 11/24/2024 3:23 PM EDT [facility] Cocaethylene Negative Negative 11/24/2024 3:23 PM EDT [facility] Cocaine Negative Negative 11/24/2024 3:23 PM EDT [facility] Codeine Negative Negative 11/24/2024 3:23 PM EDT [facility] Cyclobenzaprine Negative Negative 3:23 PM EDT [facility] Desvenlafaxine Negative Negative 11/24/2024 3:23 PM EDT [facility] Dextromethorphan Negative Negative 11/25/19 3:23 PM EDT [facility] Diazepam Negative Negative 11/24/2024 3:23 PM EDT [facility] Diltiazem Negative Negative 11/24/2024 3:23 PM EDT [facility] Diphenhydramine Negative Negative 3:23 PM EDT [facility] Doxepine Negative Negative 11/24/2024 3:23 PM EDT [facility] Doxylamine Negative Negative 11/24/2024 3:23 PM EDT [facility] EDDP-Methadone metabolite Negative Negative 11/24/2024 3:23 PM EDT [facility] Fentanyl Negative Negative 11/24/2024 3:23 PM EDT [facility] Fluconazole Negative Negative 11/24/2024 3:23 PM EDT [facility] Fluoxetine Negative Negative 11/24/2024 3:23 PM EDT [facility] Guaifenesin Negative Negative 11/24/2024 3:23 PM EDT [facility] Haloperidol Negative Negative 11/24/2024 3:23 PM EDT [facility] Heroin/6-RADHA Negative Negative 11/24/2024 3:23 PM EDT [facility] Hydrocodone Negative Negative 11/24/2024 3:23 PM EDT [facility] Hydroxyzine / Cetirizine metabolite Negative Negative 11/24/2024 3:23 PM EDT [facility] Ibuprofen Negative Negative 11/24/2024 3:23 PM EDT [facility] Imipramine Negative Negative 11/24/2024 3:23 PM EDT [facility] Ketamine Negative Negative 11/24/2024 3:23 PM EDT [facility] Labetolol Negative Negative 11/24/2024 3:23 PM EDT [facility] Lamotrigine Negative Negative 11/24/2024 3:23 PM EDT [facility] Levetiracetam Negative Negative 11/24/2024 3:23 PM EDT [facility] Lidocaine Negative Negative 11/24/2024 3:23 PM EDT [facility] MDA Negative Negative 11/24/2024 3:23 PM EDT [facility] MDMA Negative Negative 11/24/2024 3:23 PM EDT [facility] Memantine Negative Negative 11/24/2024 3:23 PM EDT [facility] Meperidine Negative Negative 11/24/2024 3:23 PM EDT [facility] Meprobamate Negative Negative 11/24/2024 3:23 PM EDT [facility] Metaxalone Negative Negative 11/24/2024 3:23 PM EDT [facility] Methamphetamine Negative Negative 3:23 PM EDT [facility] Methocarbamol Negative Negative 11/24/2024 3:23 PM EDT [facility] Methylecgonine Negative Negative 11/24/2024 3:23 PM EDT [facility] Metoclopramide Negative Negative 11/24/2024 3:23 PM EDT [facility] Metoprolol Negative Negative 11/24/2024 3:23 PM EDT [facility] Metronidazole Negative Negative 11/24/2024 3:23 PM EDT [facility] Midazolam Negative Negative 11/24/2024 3:23 PM EDT [facility] Midazolam Metabolite Negative Negative 11/24/2024 3:23 PM EDT [facility] Mirtazapine Negative Negative 11/24/2024 3:23 PM EDT [facility] Misc Test Result Positive(A) Negative 025 3:23 PM EDT [facility] Comment:Oxymorphone: positiv e Naproxen Negative Negative 11/24/2024 3:23 PM EDT [facility] Nefazodone Negative Negative 11/24/2024 3:23 PM EDT [facility] Norfentanyl Negative Negative 11/24/2024 3:23 PM EDT [facility] Nortriptyline Negative Negative 11/24/2024 3:23 PM EDT [facility] Ordanstron Negative Negative 11/24/2024 3:23 PM EDT [facility] Oxcarbazepine Negative Negative 11/24/2024 3:23 PM EDT [facility] Oxycodone Negative Negative 11/24/2024 3:23 PM EDT [facility] Paroxethine Negative Negative 11/24/2024 3:23 PM EDT [facility] Phenobarbital Negative Negative 11/24/2024 3:23 PM EDT [facility] Phentermine Negative Negative 11/24/2024 3:23 PM EDT [facility] Phenytoin Negative Negative 11/24/2024 3:23 PM EDT [facility] Primidone Negative Negative 11/24/2024 3:23 PM EDT [facility] Promethazine Negative Negative 11/24/2024 3:23 PM EDT [facility] Propofol Negative Negative 11/24/2024 3:23 PM EDT [facility] Propranolol Negative Negative 11/24/2024 3:23 PM EDT [facility] Quetiapine Negative Negative 11/24/2024 3:23 PM EDT [facility] Quinine Negative Negative 11/24/2024 3:23 PM EDT [facility] Rantidine Negative Negative 11/24/2024 3:23 PM EDT [facility] Sertraline Negative Negative 11/24/2024 3:23 PM EDT [facility] Spironolactone Negative Negative 11/24/2024 3:23 PM EDT [facility] Tizanidine Negative Negative 11/24/2024 3:23 PM EDT [facility] Topiramate Negative Negative 11/24/2024 3:23 PM EDT [facility] Tramadol Negative Negative 11/24/2024 3:23 PM EDT [facility] Trazadone/ Trazadone metabolite Negative Negative 11/24/2024 3:23 PM EDT [facility] Trimethoprim Negative Negative 11/24/2024 3:23 PM EDT [facility] Valproic Acid Negative Negative 11/24/2024 3:23 PM EDT [facility] Venlafaxine Negative Negative 11/24/2024 3:23 PM EDT [facility] Verapamil Negative Negative 11/24/2024 3:23 PM EDT [facility] Zolpidem Negative Negative 11/24/2024 3:23 PM EDT [facility] Xylazine Negative Negative 11/24/2024 3:23 PM EDT [facility] Urine Urine specimen obtained by clean catch procedure / Unknown Non-blood Collection / Unknown 11/12/2024 6:57 PM EDT 11/12/2024 7:06 PM EDT us Lucinda Chapin GLUE COOK LAB URINE ORDERABLES Lenka l Result Performing Organization Address City/[facility]/ZIP Co de Phone Number [facility] [address] [place] [address] * Sodium, Random, Urine (11/12/2024 6:57 PM EDT) Sodium, Urine 36 mmol/L 11/12/2024 7:46 PM EDT [facility] Urine Urine specimen obtained by clean catch procedure / Unknown Non-blood Collection / Unknown 11/12/2024 6:57 PM EDT 11/12/2024 7:06 PM EDT us Lucinda Chapin GLUE [employer]OOK LAB URINE ORDERABLES Lenka l Result Performing Organization Address [facility]/ZIP Co de Phone Number [facility] [address] [place] [address] * Creatinine, Random, Urine (11/12/2024 6:57 PM EDT) Creatinine, Urine 129 mg/dL 11/12/2024 7:37 PM EDT [facility] Urine Urine specimen obtained by clean catch procedure / Unknown Non-blood Collection / Unknown 11/12/2024 6:57 PM EDT 11/12/2024 7:06 PM EDT us Lucinda Chapin [facility] [employer] LAB URINE ORDERABLES Lenka l Result Performing Organization Address City/[facility]/ZIP Co de Phone Number [facility] [address] [place] [address] * (ABNORMAL) Urinalysis with reflex microscopic (Culture NOT Included) (11/12/2024 6:57 PM EDT) Color, Urine Yellow LAB URINALYSIS - AUTOMATED METHOD 11/12/2024 7:24 PM EDT [facility] Clarity, Urine Clear LAB URINALYSIS - AUTOMATED METHOD 11/12/2024 7:24 PM EDT [facility] Spec [place], Urine 1.014 1.005 - 1.030 LAB URINALYSIS - AUTOMATED METHOD 11/12/2024 7:24 PM EDT [facility] pH, Urine 5.5 5.0 - 8.0 LAB URINALYSIS - AUTOMATED METHOD 11/12/2024 7:24 PM EDT [facility] Protein, Urine 30(A) Negative mg/dL LAB URINALYSIS - AUTOMATED METHOD 11/12/2024 7:24 PM EDT [facility] Glucose, Urine Negative Negative mg/dL LAB URINALYSIS - AUTOMATED METHOD 11/12/2024 7:24 PM EDT [facility] Ketones, Urine Negative Negative mg/dL LAB URINALYSIS - AUTOMATED METHOD 11/12/2024 7:24 PM EDT [facility] Blood, Urine Moderate(A) Negative LAB URINALYSIS - AUTOMATED METHOD 11/12/2024 7:24 PM EDT [facility] Bilirubin, Urine Negative Negative LAB URINALYSIS - AUTOMATED METHOD 11/12/2024 7:24 PM EDT [facility] Urobilinogen, Urine 0.2 0.2 to 1.0 mg/dL LAB URINALYSIS - AUTOMATED METHOD 11/12/2024 7:24 PM EDT [facility] Leukocytes, Urine Negative Negative LAB URINALYSIS - AUTOMATED METHOD 11/12/2024 7:24 PM EDT [facility] Nitrite, Urine Negative Negative LAB URINALYSIS - AUTOMATED METHOD 11/12/2024 7:24 PM EDT [facility] RBC, Urine 1 0 to 3 /HPF LAB URINALYSIS - AUTOMATED METHOD 11/12/2024 7:24 PM EDT [facility] WBC, Urine 0 - 5 0 to 5 /HPF LAB URINALYSIS - AUTOMATED METHOD 11/12/2024 7:24 PM EDT [facility] Squamous Epithelial Cells 3 - 5 0 to 5 /HPF LAB URINALYSIS - AUTOMATED METHOD 11/12/2024 7:24 PM EDT [facility] Hyaline Casts 11 - 20(A) 0 to 5 /LPF LAB URINALYSIS - AUTOMATED METHOD 11/12/2024 7:24 PM EDT [facility] Bacteria, Urine Negative Negative LAB URINALYSIS - AUTOMATED METHOD 11/12/2024 7:24 PM EDT [facility] Calcium Oxalate Crystals Present Absent LAB URINALYSIS - AUTOMATED METHOD 11/12/2024 7:24 PM EDT [facility] Urine Urine specimen obtained by clean catch procedure / Unknown Non-blood Collection / Unknown 11/12/2024 6:57 PM EDT 11/12/2024 7:06 PM EDT Lucinda Chapin APRN LAB URINE ORDERABLES Lenka l Result Performing Organization Address City/[facility]/ZIP Co de Phone Number [facility] [address] [place] [address] * Streptococcus pneumoniae and Legionella Urinary Antigen (11/12/2024 6:57 PM EDT) Legionella pneumophila serogroup 1 Antigen Result (Urine) Negative Negative 11/12/2024 9:52 PM EDT [facility] Streptococcus pneumoniae Antigen Result (Urine) Negative Negative 11/12/2024 9:52 PM EDT [facility] Urine Urine specimen obtained by clean catch procedure / Unknown Non-blood Collection / Unknown 11/12/2024 6:57 PM EDT 11/12/2024 7:09 PM EDT Lucinda Chapin APRN LAB MICROBIOLOGY - GENERA L ORDERABLES Final Result Performing Organization Address City/[facility]/ZIP Co de Phone Number [facility] [address] [place] [address] * Methicillin Resistant Staphylococcus aureus (MRSA) by PCR (11/12/2024 6:51 PM EDT) Methicillin Resistant Staphylococcus aureus (MRSA) by PCR Not Detected Not Detected 11/12/2024 8:54 PM EDT [facility] Swab Both anterior nares / Unknown Non-blood Collection / Unknown 11/12/2024 6:51 PM EDT 11/12/2024 7:13 PM EDT Narrative [facility] - 11/12/2024 8:54 PM EDT This test is FDA approved for use with nares swab specimens using the eSwabs. This test is used for clinical purposes. It should not be regarded as investigational or for research. This laboratory is certified under the Clinical Laboratory improvement Amendments of 1988 (CLIA-88 as qualified to perform high complexity clinical laboratory testing. Lucinda Chapin APRN LAB MICROBIOLOGY - GENERA L ORDERABLES Final Result Performing Organization Address [facility] Co de Phone Number [facility] [address] [place] [address] * SARS CoV-2/COVID-19 by PCR (11/12/2024 6:51 PM EDT) [facility] SARS CoV-2/COVID-1 9 RNA PCR Result Not Detected Not Detected 11/13/2024 1:58 PM EDT [facility] Swab Nasopharyngeal structure / Unknown Non-blood Collection / Unknown 11/12/2024 6:51 PM EDT 11/12/2024 7:14 PM EDT Narrative [facility] - 11/13/2024 1:58 PM EDT This test is FDA approved for use with nasopharyngeal specimens in [employer] (VTM). This test is used for clinical purposes. It should not be regarded as investigational or for research. This laboratory is certified under the Clinical Laboratory improvement Amendments of 1988 (CLIA-88 as qualified to perform high complexity clinical laboratory testing. This test was performed using the [employer] SARS CoV-2 assay, a PCR-based method. Negative results should be considered presumptive and do not preclude current or future infection obtained through community transmission or other exposures. Negative results must be considered in the context of an individual's recent exposures, history, presence of clinical signs and symptoms consistent with COVID-19. Lucinda Chapin APRN LAB MICROBIOLOGY - GENERA L ORDERABLES Final Result Performing Organization Address [facility] Co de Phone Number [facility] [address] [place] [address] * Multi Drug Resistance Test (11/12/2024 6:51 PM EDT) [facility] Culture No growth at day 1 11/13/2024 3:47 PM EDT [facility] Swab (Nares and Kati Rectal) Non-blood Collection / Unknown 11/12/2024 6:51 PM EDT 11/12/2024 7:13 PM EDT Lucnida Chapin APRN LAB MICROBIOLOGY - GENERA L ORDERABLES Final Result Performing Organization Address [facility] [place] [address] * Nathaly auris Surveillance by PCR (11/12/2024 6:51 PM EDT) Pathologist [facility] Nathaly auris PCR Result Not Detected Not Detected 11/14/2024 6:51 AM EDT [facility] Swab (Axilla and Groin) Non-blood Collection / Unknown 11/12/2024 6:51 PM EDT 11/12/2024 7:13 PM EDT Narrative [facility] - 11/14/2024 6:51 AM EDT This PCR assay was developed and its performance characteristics determined by [facility] as appropriate for clinical purposes. This assay has not been cleared or approved by the FDA, but is performed in a CLIA regulated laboratory that is qualified to perform high-complexity testing. us Lucinda Chapin APRN LAB MICROBIOLOGY - GENERA L ORDERABLES Final Result Performing Organization Address [facility] [place] [address] * (ABNORMAL) Cystatin C (11/12/2024 6:48 PM EDT) Pathologist [facility] Cystatin C 4.06(H) 0.61 - 0.95 mg/L 11/12/2024 11:06 PM EDT [facility] Blood Venous blood specimen / Unknown Venipuncture / Unknown 11/12/2024 6:48 PM EDT 11/12/2024 7:07 PM EDT us Lucinda E Dari [employer]OOK LAB BLOOD ORDERABLES Lenka l Result Performing Organization Address City/[facility]/ZIP Co de Phone Number [facility] [address] [place] [address] * Free T4, Plasma (11/12/2024 6:48 PM EDT) Free T4, Plasma 1.1 0.8 - 1.7 ng/dL 11/12/2024 7:42 PM EDT [facility] Blood Venous blood specimen / Unknown Venipuncture / Unknown 11/12/2024 6:48 PM EDT 11/12/2024 7:06 PM EDT Lucinda Chapin APRN LAB BLOOD ORDERABLES Lenka l Result Performing Organization Address City/[facility]/ZIP Co de Phone Number [facility] [address] [place] [address] * Thyroid Stimulating Hormone, Plasma (11/12/2024 6:48 PM EDT) Thyroid Stimulating Hormone, Plasma 2.12 0.40 - 4.20 uIU/mL 11/12/2024 7:42 PM EDT [facility] Blood Venous blood specimen / Unknown Venipuncture / Unknown 11/12/2024 6:48 PM EDT 11/12/2024 7:06 PM EDT us Lucinda Chapin APRN LAB BLOOD ORDERABLES Lenka l Result Performing Organization Address City/[facility]/ZIP Co de Phone Number [facility] [address] [place] [address] * Acute Hepatitis Panel (11/12/2024 6:48 PM EDT) Hepatitis B Surf Antigen Negative Negative 11/12/2024 8:13 PM EDT [facility] Hepatitis C Antibody Negative Negative 11/12/2024 8:13 PM EDT [facility] Hepatitis A Antibody IgM Negative Negative 11/12/2024 8:13 PM EDT [facility] Hepatitis B Core Antibody IgM Negative Negative 11/12/2024 8:13 PM EDT [facility] Blood Venous blood specimen / Unknown Venipuncture / Unknown 11/12/2024 6:48 PM EDT 11/12/2024 7:06 PM EDT Lucinda Chapin GLUE COOK LAB BLOOD ORDERABLES Lenka l Result Performing Organization Address [facility] [place] [address] * Salicylate, Quantitative, Plasma (11/12/2024 6:48 PM EDT) Salicylate, Quantitative, Plasma <1.0 <25 mg/dL mg/dL 11/12/2024 8:00 PM EDT [facility] Blood Venous blood specimen / Unknown Venipuncture / Unknown 11/12/2024 6:48 PM EDT 11/12/2024 7:06 PM EDT Narrative [facility] - 11/12/2024 8:00 PM EDT Therapeutic Range: <25 mg/dL Supratherapeutic Level: >30 mg/dL Lucinda Chapin GLUE COOK LAB BLOOD ORDERABLES Lenka l Result Performing Organization Address [facility] [place] [address] * (ABNORMAL) Procalcitonin, Plasma (11/12/2024 6:48 PM EDT) Procalcitonin, Plasma 5.04(H) <0.09 ng/mL 11/12/2024 7:42 PM EDT [facility] Blood Venous blood specimen / Unknown Venipuncture / Unknown 11/12/2024 6:48 PM EDT 11/12/2024 7:06 PM EDT Narrative [facility] - 11/12/2024 7:42 PM EDT Procalcitonin concentrations in healthy individuals are <0.09 ng/mL. Published data support the following interpretive risk assessment: An elevated procalcitonin result does not always indicate sepsis. Various non-infectious conditions are known to increase procalcitonin. Results should be considered in the context of clinical symptoms and other laboratory tests. Procalcitonin >2.0 ng/mL: Concentrations >2.0 ng/mL on the first day of ICU admission are associated with a higher risk of progression to severe sepsis and/or septic shock. The change in PCT over time may help predict 28 day mortality risk. Please consult [email or web address] for more information. Test performed at [facility]. us Lucinda Chapin APRN LAB BLOOD ORDERABLES Lenka l Result Performing Organization Address [facility] Co de Phone Number [facility] [address] [place] [address] * N-Terminal ProBNP, Plasma (11/12/2024 6:48 PM EDT) N-Terminal, PROBNP, Plasma 519 0 - 899 pg/mL 11/12/2024 7:38 PM EDT [facility] Blood Venous blood specimen / Unknown Venipuncture / Unknown 11/12/2024 6:48 PM EDT 11/12/2024 7:07 PM EDT us Lucinda Chapin APRN LAB BLOOD ORDERABLES Lenka l Result Performing Organization Address [facility] de Phone Number [facility] [address] [place] [address] * Cortisol, serum (11/12/2024 6:48 PM EDT) Cortisol 15.00 Before 10am: 3.7 - 19.4. After 5pm: 2.9 - 17.3 ug/dL 11/12/2024 8:09 PM EDT [facility] Comment:Testing performed on Influx, standardized against MCFP Reference Standard concentration values assigned by LC-MS/MS and verified by BCR 192 and BCR 193 certified reference materials. Blood Venous blood specimen / Unknown Venipuncture / Unknown 11/12/2024 6:48 PM EDT 11/12/2024 7:07 PM EDT us Lucinda Chapin APRN LAB REF LAB BLOOD AND FLU ID ORD Final Result Performing Organization Address City/[facility]/ZIP Co de Phone Number [facility] [address] [place] [address] * (ABNORMAL) Acetaminophen, Quantitative, Plasma (11/12/2024 6:48 PM EDT) Acetaminophen <5.0(L) 10.0 - 30.0 g/mL 11/12/2024 8:15 PM EDT [facility] Blood Venous blood specimen / Unknown Venipuncture / Unknown 11/12/2024 6:48 PM EDT 11/12/2024 7:07 PM EDT Narrative [facility] - 11/12/2024 8:15 PM EDT Therapeutic: 10 to 30 ug/mL Supratherapeutic: >35 ug/mL Lucinda Chapin APRN LAB BLOOD ORDERABLES Lenka l Result Performing Organization Address [facility]/ZIP Co de Phone Number [facility] [address] [place] [address] * Type and Screen (11/12/2024 6:48 PM EDT) Pathologist [facility] ABO/Rh O Positive 11/12/2024 6:24 PM EDT [facility] Antibody Screen Negative 11/12/2024 6:24 PM EDT [facility] Specimen Expiration 11/15/2024 23:59 11/12/2024 6:24 PM EDT [facility] Blood Venous blood specimen / Unknown Venipuncture / Unknown 11/12/2024 6:48 PM EDT 11/12/2024 6:59 PM EDT Lucinda Chapin APRN LAB BLOOD BANK TEST ORDER CARLOS Final Result Performing Organization Address [facility] Co de Phone Number BLOOD BANK [address] [place] [address], * (ABNORMAL) Troponin T, High Sensitivity, Cardiac Risk Assessment (11/12/2024 6:48 PM EDT) Pathologist [facility] Troponin T, High Sensitivity, 0 Hour 30(H) <19 ng/L 11/12/2024 7:42 PM EDT [facility] Blood Venous blood specimen / Unknown Venipuncture / Unknown 11/12/2024 6:48 PM EDT 11/12/2024 7:06 PM EDT Lucinda Chapin GLUE COOK LAB BLOOD ORDERABLES Lenka l Result Performing Organization Address City/[facility]/ZIP Co de Phone Number [facility] [address] [place] [address] * Prothrombin Time/INR (11/12/2024 6:48 PM EDT) Prothrombin Time 13.7 12.0 - 14.3 sec LAB COAGULATION METHOD 11/12/2024 7:45 PM EDT [facility] INR 1.0 0.9 - 1.1 LAB COAGULATION METHOD 11/12/2024 7:45 PM EDT [facility] Blood Venous blood specimen / Unknown Venipuncture / Unknown 11/12/2024 6:48 PM EDT 11/12/2024 7:06 PM EDT Narrative [facility] - 11/12/2024 7:45 PM EDT OPTIMAL INR RANGES FOR PATIENT ON ORAL ANTICOAGULANT THERAPY Prevention of venous thromboembolism INR 2.0 to 3.0 In patients with heart disease: Atrial fibrillation INR 2.0 to 3.0 Valvular heart disease INR 2.0 to 3.0 Tissue heart valves INR 2.0 to 3.0 Mechanical prosthetic valves INR 2.5 to 3.5 Prevention of recurrent ND INR 2.5 to 3.5 us Lucinda Chapin APRN LAB BLOOD ORDERABLES Lenka l Result [facility] [address] [place] [address] * Magnesium, Plasma (11/12/2024 6:48 PM EDT) Magnesium, Plasma 2.4 1.9 - 2.4 mg/dL 11/12/2024 7:38 PM EDT [facility] Blood Venous blood specimen / Unknown Venipuncture / Unknown 11/12/2024 6:48 PM EDT 11/12/2024 7:07 PM EDT Lucinda Chapin APRN LAB BLOOD ORDERABLES Lenka l Result Performing Organization Address City/[facility]/ZIP Co de Phone Number [facility] [address] [place] [address] * (ABNORMAL) Phosphorus, Plasma (11/12/2024 6:48 PM EDT) Phosphorus, Plasma 6.8(H) 2.5 - 4.5 mg/dL 11/12/2024 7:38 PM EDT [facility] Blood Venous blood specimen / Unknown Venipuncture / Unknown 11/12/2024 6:48 PM EDT 11/12/2024 7:07 PM EDT Lucinda Chapin APRN LAB BLOOD ORDERABLES Lenka l Result Performing Organization Address City/[facility]/ZIP Co de Phone Number [facility] [address] [place] [address] * (ABNORMAL) CBC and Differential (11/12/2024 6:48 PM EDT) WBC Count 7.08 3.70 - 10.30 10*3/uL LAB HEMATOLOGY METHOD 11/12/2024 7:40 PM EDT [facility] RBC Count 3.50(L) 4.60 - 6.10 10*6/uL LAB HEMATOLOGY METHOD 11/12/2024 7:40 PM EDT [facility] HGB 10.9(L) 13.7 - 17.5 g/dL LAB HEMATOLOGY METHOD 11/12/2024 7:40 PM EDT [facility] HCT 33.8(L) 40.0 - 51.0 % LAB HEMATOLOGY METHOD 11/12/2024 7:40 PM EDT [facility] Platelet Count 172 155 - 369 10*3/uL LAB HEMATOLOGY METHOD 11/12/2024 7:40 PM EDT [facility] MCV 97 79 - 98 fL LAB HEMATOLOGY METHOD 11/12/2024 7:40 PM EDT [facility] MCH 31.1 26.0 - 32.0 pg LAB HEMATOLOGY METHOD 11/12/2024 7:40 PM EDT [facility] MCHC 32.2 30.7 - 35.5 g/dL LAB HEMATOLOGY METHOD 11/12/2024 7:40 PM EDT [facility] RDW 13.9 11.5 - 14.5 % LAB HEMATOLOGY METHOD 11/12/2024 7:40 PM EDT [facility] MPV 11.1 8.8 - 12.5 fL LAB HEMATOLOGY METHOD 11/12/2024 7:40 PM EDT [facility] nRBC 0.0 <=0.0 per 100 WBCs LAB HEMATOLOGY METHOD 11/12/2024 7:40 PM EDT [facility] Differential Type Automated LAB HEMATOLOGY METHOD 11/12/2024 7:40 PM EDT [facility] Neutrophils % 85 % LAB HEMATOLOGY METHOD 11/12/2024 7:40 PM EDT [facility] Lymphocytes % 7 % LAB HEMATOLOGY METHOD 11/12/2024 7:40 PM EDT [facility] Monocytes % 7 % LAB HEMATOLOGY METHOD 11/12/2024 7:40 PM EDT [facility] Eosinophils % 0 % LAB HEMATOLOGY METHOD 11/12/2024 7:40 PM EDT [facility] Basophils % 0 % LAB HEMATOLOGY METHOD 11/12/2024 7:40 PM EDT [facility] Immature Granulocytes % 1 % LAB HEMATOLOGY METHOD 11/12/2024 7:40 PM EDT [facility] Neutrophils Absolute 6.03 1.60 - 6.10 10*3/uL LAB HEMATOLOGY METHOD 11/12/2024 7:40 PM EDT [facility] Lymphocytes Absolute 0.50(L) 1.20 - 3.90 10*3/uL LAB HEMATOLOGY METHOD 11/12/2024 7:40 PM EDT [facility] Monocytes Absolute 0.50 0.30 - 0.90 10*3/uL LAB HEMATOLOGY METHOD 11/12/2024 7:40 PM EDT [facility] Eosinophils Absolute 0.00 0.00 - 0.50 10*3/uL LAB HEMATOLOGY METHOD 11/12/2024 7:40 PM EDT [facility] Basophils Absolute 0.01 0.00 - 0.10 10*3/uL LAB HEMATOLOGY METHOD 11/12/2024 7:40 PM EDT [facility] Immature Granulocytes Absolute 0.04 0.00 - 0.06 10*3/uL LAB HEMATOLOGY METHOD 11/12/2024 7:40 PM EDT [facility] Blood Venous blood specimen / Unknown Venipuncture / Unknown 11/12/2024 6:48 PM EDT 11/12/2024 7:04 PM EDT Narrative [facility] - 11/12/2024 7:40 PM EDT Therapeutic decision making should be based on absolute values, rather than percentages. us Lucinda Chapin APRN LAB BLOOD ORDERABLES Lenka simpson Result [facility] [address] [place] [address] * (ABNORMAL) Comprehensive Metabolic Panel, Plasma (11/12/2024 6:48 PM EDT) Glucose, Plasma 116(H) 74 - 99 mg/dL 11/12/2024 7:38 PM EDT [facility] BUN, Plasma 68(H) 8 - 23 mg/dL 11/12/2024 7:38 PM EDT [facility] Creatinine, Plasma 7.27(H) 0.70 - 1.20 mg/dL 11/12/2024 7:38 PM EDT [facility] BUN/Creatinine Ratio 9 11/12/2024 7:38 PM EDT [facility] Sodium, Plasma 134(L) 136 - 145 mmol/L 11/12/2024 7:38 PM EDT [facility] Potassium, Plasma 6.1(H) 3.6 - 4.9 mmol/L 11/12/2024 7:38 PM EDT [facility] Chloride, Plasma 99 97 - 107 mmol/L 11/12/2024 7:38 PM EDT [facility] CO2, Plasma 19(L) 22 - 29 mmol/L 11/12/2024 7:38 PM EDT [facility] Anion Gap 16 6 - 16 mmol/L 11/12/2024 7:38 PM EDT [facility] Total Calcium, Plasma 8.4(L) 8.9 - 10.2 mg/dL 11/12/2024 7:38 PM EDT [facility] Total Protein 6.3 6.3 - 7.9 g/dL 11/12/2024 7:38 PM EDT [facility] Albumin, Plasma 3.7 3.5 - 5.2 g/dL 11/12/2024 7:38 PM EDT [facility] AST, Plasma 23 10 - 50 U/L 11/12/2024 7:38 PM EDT [facility] ALT, Plasma 12 10 - 50 U/L 11/12/2024 7:38 PM EDT [facility] Alkaline Phosphatase, Plasma 84 40 - 115 U/L 11/12/2024 7:38 PM EDT [facility] Total Bilirubin, Plasma 0.6 0.2 - 1.1 mg/dL 11/12/2024 7:38 PM EDT [facility] eGFRcr 7.6 mL/min/1.7 3m*2 11/12/2024 7:38 PM EDT [facility] Comment:Reported eGFRcr in m L/min/1.73m2 is based the CKD-EPI 2020 equation that does not use a race coefficient. Blood Venous blood specimen / Unknown Venipuncture / Unknown 11/12/2024 6:48 PM EDT 11/12/2024 7:07 PM EDT us Lucinda Chapin APRN LAB BLOOD ORDERABLES Lenka l Result [facility] [address] [place] [address] * Blood Culture (Aerobic/Anaerobet Set) (11/12/2024 6:48 PM EDT) Culture No growth at day 5 ZHEN 11/17/2024 8:02 PM EDT [facility] Blood Structure of part of right upper limb / Unknown Venipuncture / Unknown 11/12/2024 6:48 PM EDT 11/12/2024 7:11 PM EDT us Lucinda Chapin APRN LAB MICROBIOLOGY - GENERA L ORDERABLES Final Result [facility] [address] [place] [address] * (ABNORMAL) Hemoglobin A1c (11/12/2024 6:48 PM EDT) Hemoglobin A1c 5.8(H) <5.7 % 11/12/2024 8:15 PM EDT [facility] Blood Venous blood specimen / Unknown Venipuncture / Unknown 11/12/2024 6:48 PM EDT 11/12/2024 7:04 PM EDT Narrative [facility] - 11/12/2024 8:15 PM EDT HA1C Interpretive Data: Diagnosis of Diabetes: Diabetic > or = 6.5% Pre-diabetic 5.7 to 6.4% Non-diabetic < or = 5.6% Glycemic Targets for Type I and Type II Diabetics: Non- Adults <7.0% Adults <6.0% Children and Adolescents <7.5% Source: [place] [employer]. Standards of medical care in diabetes,2017. Diabetes Care.2017:40 (suppl 1):S1-S135. Lucinda Chapin APRN LAB BLOOD ORDERABLES Lenka l Result Performing Organization Address City/[facility]/ZIP Co de Phone Number [facility] [address] [place] [address] * (ABNORMAL) POCT venous blood gas gem (11/12/2024 6:41 PM EDT) pH, Venous 7.16(LL) 7.32 - 7.43 11/13/2024 6:05 AM EDT [facility] pCO2, Venous 57(H) 40 - 55 mm Hg 11/13/2024 6:05 AM EDT [facility] pO2, Venous <30 25 - 40 mm Hg 11/13/2024 6:05 AM EDT [facility] SO2, Venous 29(L) 65 - 80 % 11/13/2024 6:05 AM EDT [facility] FIO2 60.0 % 11/13/2024 6:05 AM EDT [facility] Base Excess/Deficit, Venous -8.5(L) -2 - 3 mmol/L 11/13/2024 6:05 AM T [facility] HCO3, Venous 20.3(L) 22 - 26 mmol/L 11/13/2024 6:05 AM EDT [facility] Hemoglobin, Venous 10.6(L) 13.7 - 17.5 g/dL 11/13/2024 6:05 AM EDT [facility] Hematocrit, Venous 32.0(L) 40.0 - 51.0 % 11/13/2024 6:05 AM T [facility] Sodium, Venous 131(L) 136 - 145 mmol/L 11/13/2024 6:05 AM T [facility] Potassium, Venous 5.9(H) 3.6 - 4.9 mmol/L 11/13/2024 6:05 AM [facility] Comment:Hemolyzed, result ma y be falsely increased. POCT Chloride, Venous 101 97 - 107 mmol/L 11/13/2024 6:05 AM [facility] Glucose, Venous 114(H) 74 - 99 mg/dL 11/13/2024 6:05 AM [facility] Ionized Calcium, Venous 4.5(L) 4.6 - 5.1 mg/dL 11/13/2024 6:05 AM [facility] Lactate, Venous 1.2 0.5 - 2.2 mmol/L 11/13/2024 [facility] Body Temperature 37.0 Celsius 11/13/2024 [facility] pH, Temp Corrected, Venous 7.16(LL) 7.32 - 7.43 11/13/2024 6:05 AM [facility] pCO2, Temp Corrected, Venous 57(H) 40 - 55 mm Hg 11/13/2024 6:05 AM EDT [facility] Self Storage Manager ID Leila Persaud 11/13/2024 6:05 [facility] Acknowledged, Notified By RN 11/13/2024 6:05 AM [facility] Critical Notify Time 1841 11/13/2024 6:05 AM EDT [facility] Critical Readback Y 11/13/2024 6:05 AM EDT [facility] Blood, Venous Whole blood specimen / Unknown 11/12/2024 6:41 PM EDT 11/13/2024 6:05 AM EDT Kan Lucero MD LAB POINT OF CARE TE ST DOCKED DEVICE UNSOLICITED RESULTS Final Result Performing Organization Address [facility] de Phone Number [facility] [address] [place] [address] * (ABNORMAL) POCT glucose meter (11/12/2024 6:30 PM EDT) [facility] POCT Glucose 129(H) 74 - 99 mg/dL 11/12/2024 6:32 PM EDT [facility] Comment:Accuracy of a glucos e result obtained from a capillary whole blood specimen relies upon adequate, non-compromised capillary blood flow. If the capillary glucose result is not consistent with the patient's clinical signs and symptoms, glucose testing should be repeated with either an arterial or venous sample on the glucometer or sent to the main labortory for testing. Comment 11/12/2024 6:32 PM EDT [facility] Self Storage Manager ID Adeline Mae E 025 6:32 PM EDT [facility] Device ID [id number] 11/12/2024 6:32 PM EDT [facility] Specimen Type POC Capillary 11/12/2024 6:32 PM EDT [facility] Blood Capillary blood specimen / Unknown 11/12/2024 6:30 PM EDT 11/12/2024 6:32 PM EDT Kan Lucero MD LAB POINT OF CARE TE ST DOCKED DEVICE UNSOLICITED RESULTS Final Result Performing Organization Address City/[facility] Co de Phone Number [facility] [address] [place] [address] documented in this encounter Visit Diagnoses Diagnosis Acute renal failure (ARF) (CMS/HCC)- Primary Acute kidney failure, unspecified Acute renal failure, unspecified acute renal failure type (CMS/HCC) Shock (CMS/HCC) Unspecified shock Community acquired pneumonia, unspecified laterality Hyperkalemia Hyperpotassemia Acute hypoxic respiratory failure Stenosis of carotid artery, unspecified laterality PVD (peripheral vascular disease) (CMS/HCC) Unspecified peripheral vascular disease Acquired obstruction of left nasolacrimal duct documented in this encounter Admitting Diagnoses Diagnosis Acute renal failure (ARF) (CMS/HCC) Acute kidney failure, unspecified documented in this encounter Administered Medications Inactive Administered Medications - up to 3 most recent administrations Medication Order MAR Action Action Date Dose Rate Site acetaminophen (Tylenol) tablet 650 mg 650 mg, Oral, Every 4 hours PRN, Starting on Tue11/12/24 at 1823, Until 11/18/24 at 1724, Routine, fever, for temperature > 38.5 Given 11/15/2024 8:52 AM EDT 650 mg amLODIPine (Norvasc) tablet 10 mg 10 mg, Oral, Daily, First dose (after last modification) on Tue11/17/24 at 0900, Until Discontinued, Routine Given 11/18/2024 8:26 AM EDT 10 mg Given 11/17/2024 8:54 AM EDT 10 mg amLODIPine (Norvasc) tablet 5 mg 5 mg, Oral, Daily, First dose on Tue11/16/24 at 1645, Until Discontinued, Routine Given 11/16/2024 4:36 PM EDT 5 mg atorvastatin (Lipitor) tablet 40 mg 40 mg, Oral, Nightly, First dose on Tue11/13/24 at 2100, Until Discontinued, Routine Given 11/17/2024 8:59 PM EDT 40 mg Given 11/16/2024 9:12 PM EDT 40 mg Given 11/15/2024 9:14 PM EDT 40 mg azithromycin (Zithromax) tablet 500 mg 500 mg, Oral, Daily, 2 doses, First dose on Tue11/13/24 at 0900, Last dose on Tue11/14/24 at 0900, Routine Given 11/14/2024 8:03 AM EDT 500 mg Given 11/13/2024 10:00 AM EDT 500 mg cefTRIAXone (Rocephin) 2 g in sodium chloride 0.9% 100 mL IVPB (vial adapter required) 2 g, Intravenous, Every 24 hours, 5 doses, First dose on Tue11/13/24 at 0945, Last dose on Tue11/17/24 at 0945, STAT New Bag 11/17/2024 8:54 AM EDT 2 g 220 mL/hr New Bag 11/16/2024 9:03 AM EDT 2 g 220 mL/hr New Bag 11/15/2024 8:49 AM EDT 2 g 220 mL/hr dextrose 10 % (D10W) bolus 250 mL 250 mL (25 g), Intravenous, Once, 1 dose, On Tue11/12/24 at 2030, Administer over 30 Minutes, Routine New Bag 11/12/2024 7:58 PM EDT 250 m L 500 mL/hr dextrose 50 % solution 12.5 g 12.5 g, Intravenous, Every 15 min PRN, Starting on Tue11/12/24 at 1823, Until Tue11/18/24 at 1724, Routine, low blood sugar Given 11/12/2024 9:14 PM EDT 12.5 g DULoxetine (Cymbalta) DR capsule 30 mg 30 mg, Oral, Daily, First dose on Tue11/13/24 at 0900, Until Discontinued, Routine Given 11/18/2024 8:26 AM EDT 30 mg Given 11/17/2024 8:54 AM EDT 30 mg Given 11/16/2024 9:03 AM EDT 30 mg glucagon (human recombinant) injection 1 mg 1 mg, Intramuscular, Every 15 min PRN, Starting on Tue11/12/24 at 1823, Until Tue11/18/24 at 1724, Routine, low blood sugar per Hypoglycemia Prevention and Treatment protocol glucose (Glutose) 40 % oral gel 15 grams of glucose 15 grams of glucose, Sublingual, Every 15 min PRN, Starting on Tue11/12/24 at 1823, Until Tue11/18/24 at 1724, Routine, low blood sugar, per Hypoglycemia Prevention and Treatment protocol heparin (porcine) injection 5,000 Units 5,000 Units, Subcutaneous, Every 8 hours scheduled, First dose on Tue11/13/24 at 0600, Until Discontinued, Routine Given 11/17/2024 9:00 PM EDT 5,000 Units Left Lower Abdomen Given 11/17/2024 1:59 PM EDT 5,000 Units R ight Lower Abdomen Given 11/17/2024 5:54 AM EDT 5,000 Units L eft Lower Abdomen hydrocortisone sod succinate (PF) (Solu-CORTEF) injection 50 mg 50 mg, Intravenous, Every 6 hours, First dose on Tue11/12/24 at 2030, Until Discontinued, Routine Given 11/14/2024 8:03 AM EDT 50 mg Given 11/14/2024 1:34 AM EDT 50 mg Given 11/13/2024 7:47 PM EDT 50 mg insulin regular (HumuLIN R,NovoLIN R) 100 UNIT/ML injection 10 Units 10 Units, Intravenous, Once, 1 dose, On Tue11/12/24 at 2030, RoutineIndications:Hyperkalemia Given 11/12/2024 7:58 PM EDT 10 Units ipratropium-albuterol (Duo-Neb) 0.5-2.5 mg/3 mL nebulizer solution 3 mL 3 mL, Nebulization, Every 6 hours, First dose on Tue11/12/24 at 1930, Until Discontinued, Routine Given 11/13/2024 2:33 AM EDT 3 mL Given 11/12/2024 7:57 PM EDT 3 mL ipratropium-albuterol (Duo-Neb) 0.5-2.5 mg/3 mL nebulizer solution 3 mL 3 mL, Nebulization, Every 6 hours, First dose (after last modification) on Tue11/13/24 at 0900, Until Discontinued, Routine Given 11/18/2024 2:34 PM EDT 3 mL Given 11/18/2024 8:16 AM EDT 3 mL Given 11/18/2024 2:41 AM EDT 3 mL lactated Ringer's bolus 500 mL 500 mL, Intravenous, Once, 1 dose, On Tue11/12/24 at 2030, Administer over 2 Hours, Routine Rate/Dose Verify 11/12/2024 9:00 PM EDT 250 mL/hr New Bag 11/12/2024 7:58 PM EDT 500 mL 250 mL/hr lactated Ringer's bolus 500 mL 500 mL, Intravenous, Once, 1 dose, On Tue11/13/24 at 1400, Administer over 1 Hours, Routine New Bag 11/13/2024 1:25 PM EDT 500 mL 500 mL/hr levothyroxine (Synthroid, Levoxyl) tablet 125 mcg 125 mcg, Oral, Every morning, First dose on Tue11/13/24 at 0600, Until Discontinued, Routine Given 11/18/2024 6:29 AM EDT 125 mcg Given 11/17/2024 5:54 AM EDT 125 mcg Given 11/16/2024 6:13 AM EDT 125 mcg montelukast (Singulair) tablet 10 mg 10 mg, Oral, Nightly, First dose on Tue11/12/24 at 2100, Until Discontinued, Routine Given 11/17/2024 8:59 PM EDT 10 mg Given 11/16/2024 9:12 PM EDT 10 mg Given 11/15/2024 9:14 PM EDT 10 mg mupirocin (Bactroban) 2 % ointment 1 Application Each Nostril, 2 times daily, 10 doses, First dose on Tue11/12/24 at 2100, Last dose on Tue11/17/24 at 0900, Routine Given 11/17/2024 8:54 AM EDT 1 Application Given 11/16/2024 9:12 PM EDT 1 Application Given 11/16/2024 9:03 AM EDT 1 Application norepinephrine 8 mg/250 mL (0.032 mg/mL) infusion 0-0.4 mcg/kg/min 109 kg (0-81.75 mL/hr), 0.032 mg/mL, Intravenous, Titrated, Starting on Tue11/12/24 at 1945, Until Tue11/14/24 at 1627, STAT Rate/Dose Verify 11/14/2024 7:00 AM EDT 0.02 mcg/kg/min 4.09 mL/hr Rate/Dose Verify 11/14/2024 6:00 AM EDT 0.02 mcg/kg/min 4. 09 mL/hr Rate/Dose Verify 11/14/2024 5:00 AM EDT 0.02 mcg/kg/min 4. 09 mL/hr pantoprazole (Protonix) EC tablet 40 mg 40 mg, Oral, Daily, First dose on Tue11/16/24 at 0900, Until Discontinued, Routine Given 11/18/2024 8:26 AM EDT 40 mg Given 11/17/2024 8:54 AM EDT 40 mg Given 11/16/2024 9:03 AM EDT 40 mg pantoprazole (Protonix) injection 40 mg 40 mg, Intravenous, Daily, First dose on Tue11/12/24 at 1945, Until Discontinued, Routine Given 11/15/2024 8:36 AM EDT 40 mg Given 11/14/2024 8:03 AM EDT 40 mg Given 11/13/2024 10:00 AM EDT 40 mg phosphorus (K Phos Neutral) tablet 1 tablet 1 tablet (250 mg), Oral, 3 times daily, 3 doses, First dose on Tue11/14/24 at 0900, Last dose on Tue11/14/24 at 2100, Routine Given 11/14/2024 9:49 PM EDT 1 tablet Given 11/14/2024 3:00 PM EDT 1 tablet Given 11/14/2024 8:03 AM EDT 1 tablet phosphorus (K Phos Neutral) tablet 2 tablet 2 tablet, Oral, Every 8 hours, 3 doses, First dose on Tue11/15/24 at 0600, Last dose on Tue11/15/24 at 2200, Routine Given 11/15/2024 9:14 PM EDT 2 tablet s Given 11/15/2024 1:59 PM EDT 2 tablets Given 11/15/2024 5:24 AM EDT 2 tablets polyethylene glycol (Miralax) packet 17 g 17 g, Oral, Daily, First dose on Tue11/13/24 at 0900, Until Discontinued, Routine Given 11/15/2024 9:19 AM EDT 17 g Given 11/14/2024 8:03 AM EDT 17 g Given 11/13/2024 10:00 AM EDT 17 g senna (Senokot) tablet 8.6 mg 8.6 mg, Oral, Nightly, First dose on Tue11/13/24 at 2100, Until Discontinued, Routine Given 11/17/2024 8:59 PM EDT 8.6 mg Given 11/16/2024 9:12 PM EDT 8.6 mg Given 11/15/2024 9:14 PM EDT 8.6 mg sodium bicarbonate 8.4 % injection 50 mEq 50 mEq, Intravenous, Once, 1 dose, On Tue11/12/24 at 1930, Routine Given 11/12/2024 7:57 PM EDT 50 mEq sodium bicarbonate 8.4 % injection 50 mEq 50 mEq, Intravenous, Once, 1 dose, On Tue11/13/24 at 0300, Routine Given 11/13/2024 2:27 AM EDT 50 mEq sodium chloride 0.9 % flush 10 mL 10 mL, Intravenous, Every 12 hours, First dose on Tue11/13/24 at 0115, Until Discontinued, Routine Given 11/18/2024 2:30 PM EDT 10 mL Given 11/18/2024 1:20 AM EDT 10 mL Given 11/17/2024 2:00 PM EDT 10 mL sodium chloride 0.9 % flush 10 mL 10 mL, Intravenous, Every 1 hour PRN, Starting on Tue11/13/24 at 0018, Until Tue11/18/24 at 1724, Routine, Flush Before and After EVERY dose of medication. sodium chloride 0.9 % flush 20 mL 20 mL, Intravenous, Every 1 hour PRN, Starting on Tue11/13/24 at 0018, Until 11/18/24 at 1724, Routine, After blood draws and if any blood seen in tubing. valsartan (Diovan) tablet 80 mg 80 mg, Oral, Daily, First dose on Tue11/16/24 at 0900, Until Discontinued, Routine Given 11/18/2024 8:26 AM EDT 80 mg Given 11/17/2024 8:54 AM EDT 80 mg Given 11/16/2024 9:03 AM EDT 80 mg vasopressin (Vasostrict) 20 Units in sodium chloride 0.9 % 100 mL (0.2 Units/mL) infusion 0.03 Units/min (9 mL/hr), 0.2 units/mL, Intravenous, Continuous, Starting on Tue11/12/24 at 2000, Until Tue11/13/24 at 1300, STAT Rate/Dose Verify 11/13/2024 9:00 AM EDT 0.03 Units/min 9 mL/hr Rate/Dose Verify 11/13/2024 8:00 AM EDT 0.03 Units/min 9 m L/hr Rate/Dose Verify 11/13/2024 7:00 AM EDT 0.03 Units/min 9 m L/hr documented in this encounter Active and Recently Administered Medications Times are shown in EDT. Scheduled Medication Order 11/16/2024 11/17/2024 11/18/2024 amLODIPine (Norvasc) tablet 10 mg 10 mg, Oral, Daily, First dose (after last modification) on Tue11/17/24 at 0900, Until Discontinued, Routine 0854 (Given - Provider: Steph Quispe RN) 0826 (Given - Provider: Werner Dan LPN) amLODIPine (Norvasc) tablet 5 mg (CANCELED) 5 mg, Oral, Daily, First dose on Tue11/16/24 at 1645, Until Discontinued, Routine 163 (Given - Provider: Steph Quispe RN) atorvastatin (Lipitor) tablet 40 mg 40 mg, Oral, Nightly, First dose on Tue11/13/24 at 2100, Until Discontinued, Routine 2111 (Given - Provider: Joseluis Timmons) 2058 (Given - Provider: Carlos Meza LPN) cefTRIAXone (Rocephin) 2 g in sodium chloride 0.9% 100 mL IVPB (vial adapter required) (COMPLETED) 2 g, Intravenous, Every 24 hours, 5 doses, First dose on Tue11/13/24 at 0945, Last dose on Tue11/17/24 at 0945, STAT 0903 (New Bag - Provider: Steph Quispe RN) 0854 (New Bag - Provider: Steph Quispe RN) DULoxetine (Cymbalta) DR capsule 30 mg 30 mg, Oral, Daily, First dose on Tue11/13/24 at 0900, Until Discontinued, Routine 0903 (Given - Provider: Steph Quispe RN) 0854 (Given - Provider: Steph Quispe RN) 0826 (Given - Provider: Werner Dan LPN) heparin (porcine) injection 5,000 Units 5,000 Units, Subcutaneous, Every 8 hours scheduled, First dose on Tue11/13/24 at 0600, Until Discontinued, Routine 0613 (Given - Provider: Joseluis Timmons)1507 (Given - Provider: Steph Quispe RN)2112 (Given - Provider: Joseluis Timmons) 0554 (Given - Provider: Joseluis Timmons)1359 (Given - Provider: Patito Ahn RN)2100 (Given - Provider: Carlos Meza LPN) 0614 (Not Given - Provider: Carlos Meza LPN - Reason: Patient/family refused)1400 (Canceled Entry - Provider: Automatic Discharge Provider - Comment: Automatically canceled at discontinue of medication order) ipratropium-albuterol (Duo-Neb) 0.5-2.5 mg/3 mL nebulizer solution 3 mL 3 mL, Nebulization, Every 6 hours, First dose (after last modification) on Tue11/13/24 at 0900, Until Discontinued, Routine 042 (Not Given - Provider: Rosetta Jennings - Reason: Patient/family refused)09 (Given - Provider: Stephanie Keys)1517 (Given - Provider: Iggy Head)2005 (Given - Provider: Mohini Velasquez) 0403 (Given - Provider: Talha Velasco)1404 (Given - Provider: Adela Mccall) 1602 (Not Given - Provider: Adela Mccall - Reason: Hold for condition: must add comment - Comment: patientnot here yet)2035 (Given - Provider: Justo Diane) 0241 (Given - Provider: Justo Diane)0816 (Given - Provider: Adela Mccall)143 4 (Given - Provider: Adela Mccall) levothyroxine (Synthroid, Levoxyl) tablet 125 mcg 125 mcg, Oral, Every morning, First dose on Tue11/13/24 at 0600, Until Discontinued, Routine 612 (Given - Provider: Joseulis Timmons) 0554 (Given - Provider: Joseluis Timmons) 06 (Given - Provider: Carlos Meza LPN) montelukast (Singulair) tablet 10 mg 10 mg, Oral, Nightly, First dose on Tue11/12/24 at 2100, Until Discontinued, Routine 2111 (Given - Provider: Joseluis Timmons) 2058 (Given - Provider: Carlos Meza LPN) mupirocin (Bactroban) 2 % ointment 1 Application (COMPLETED) Each Nostril, 2 times daily, 10 doses, First dose on Tue11/12/24 at 2100, Last dose on Tue11/17/24 at 0900, Routine 0903 (Given - Provider: Steph Quispe RN)2111 (Given - Provider: Joseluis Timmons) 0854 (Given - Provider: Steph Quispe RN) pantoprazole (Protonix) EC tablet 40 mg 40 mg, Oral, Daily, First dose on Tue11/16/24 at 0900, Until Discontinued, Routine 09 (Given - Provider: Steph Quispe RN) 0854 (Given - Provider: Steph Quispe RN) 0826 (Given - Provider: Werner Dan LPN) polyethylene glycol (Miralax) packet 17 g 17 g, Oral, Daily, First dose on Tue11/13/24 at 0900, Until Discontinued, Routine 0916 (Not Given - Provider: Steph Quispe RN - Reason: Patient/family refused) 0854 (Not Given - Provider: Steph Quispe RN - Reason: Patient/family refused - Comment: bm daily) 08 (Not Given - Provider: Werner Dan LPN - Reason: Patient/family refused) senna (Senokot) tablet 8.6 mg 8.6 mg, Oral, Nightly, First dose on Tue11/13/24 at 2100, Until Discontinued, Routine 2111 (Given - Provider: Joseluis Timmons) 205 (Given - Provider: Carlos Meza LPN) sodium chloride 0.9 % flush 10 mL 10 mL, Intravenous, Every 12 hours, First dose on Tue11/13/24 at 0115, Until Discontinued, Routine 0032 (Given - Provider: Joseluis Timmons)1302 (Given - Provider: Steph Quispe RN) 0015 (Given - Provider: Joseluis Timmons)1400 (Given - Provider: Patito Ahn RN) 0120 (Given - Provider: Carlos Meza LPN)1430 (Given - Provider: Werner Dan LPN) valsartan (Diovan) tablet 80 mg 80 mg, Oral, Daily, First dose on Tue11/16/24 at 0900, Until Discontinued, Routine 09 (Given - Provider: Steph Quispe RN) 0854 (Given - Provider: Steph Quispe RN) 0826 (Given - Provider: Werner Dan LPN) PRN Medication Order 11/16/2024 11/17/2024 11/18/2024 acetaminophen (Tylenol) tablet 650 mg 650 mg, Oral, Every 4 hours PRN, Starting on Tue11/12/24 at 1823, Until 11/18/24 at 1724, Routine, fever, for temperature > 38.5 dextrose 50 % solution 12.5 g(Linked Group 1) 12.5 g, Intravenous, Every 15 min PRN, Starting on Tue11/12/24 at 1823, Until 11/18/24 at 1724, Routine, low blood sugar glucagon (human recombinant) injection 1 mg(Linked Group 1) 1 mg, Intramuscular, Every 15 min PRN, Starting on Tue11/12/24 at 1823, Until 11/18/24 at 1724, Routine, low blood sugar per Hypoglycemia Prevention and Treatment protocol glucose (Glutose) 40 % oral gel 15 grams of glucose(Linked Group 1) 15 grams of glucose, Sublingual, Every 15 min PRN, Starting on Tue11/12/24 at 1823, Until 11/18/24 at 1724, Routine, low blood sugar, per Hypoglycemia Prevention and Treatment protocol ipratropium-albuterol (Duo-Neb) 0.5-2.5 mg/3 mL nebulizer solution 3 mL 3 mL, Nebulization, Every 6 hours PRN, Starting on Tue11/12/24 at 1823, Until 11/18/24 at 1724, Routine, shortness of breath sodium chloride 0.9 % flush 10 mL 10 mL, Intravenous, Every 1 hour PRN, Starting on Tue11/13/24 at 0018, Until 11/18/24 at 1724, Routine, Flush Before and After EVERY dose of medication. sodium chloride 0.9 % flush 20 mL 20 mL, Intravenous, Every 1 hour PRN, Starting on Tue11/13/24 at 0018, Until 11/18/24 at 1724, Routine, After blood draws and if any blood seen in tubing. Linked Groups Order Group 1: glucose (Glutose) 40 % oral gel 15 grams of glucoseJump to med 15 grams of glucose, Sublingual, Every 15 min PRN, Starting on Tue11/12/24 at 1823, Until Tue11/18/24 at 1724, Routine, low blood sugar, per Hypoglycemia Prevention and Treatment protocol Or dextrose 50 % solution 12.5 gJump to med 12.5 g, Intravenous, Every 15 min PRN, Starting on 11/12/24 at 1823, Until 11/18/24 at 1724, Routine, low blood sugar Or glucagon (human recombinant) injection 1 mgJump to med 1 mg, Intramuscular, Every 15 min PRN, Starting on 11/12/24 at 1823, Until 11/18/24 at 1724, Routine, low blood sugar per Hypoglycemia Prevention and Treatment protocol documented in this encounter Additional Health Concerns Infection Onset Date Last Indicated Resolved Time COVID-19 Rule-Out 11/12/2024 11/12/2024 11/13/2024 1:58 PM EDT Streptococcus pneumoniae 11/12/2024 11/12/2024 9:53 PM EDT Assessment Noted Time A fall risk assessment has been complete d for the patient 02/11/2023 9:08 AM EDT A Body Mass Index follow-up plan has been documented for the patient 11/18/2024 1:41 PM EDT documented as of this encounter Care Teams Assembly Detailer Relationship Specialty Start Date End Date Yovany Walsh MD [address] [facility] [address] [place] [address] PCP - General 10/13/24 Carloz Day MD [address] [place] [id number] Surgeon Otolaryngology 02/17/21 Willie Sargent MD [address] [place] [address] Surgeon Otolaryngology 08/13/21 documented as of this encounter
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
--- OUTSIDE RECORDS SUMMARY | 2025-01-02 14:05 | XMS_ITS | Encounter Summary ---
Author Organization Healthcare Address [address] [place] [address] Care Team Providers Care Reconciler Name Role Phone Carloz Day MD Unavailable [phone] Willie Sargent MD Unavailable Yovany Walsh MD Primary Care Provider [phone] Encounter Details Date Type Department Care Team (Late st Contact Info) Description 11/12/2024 Orders Only External Location [address] [place] [address] Noni Hernandez, DO [address] [place] [address] Social History Tobacco Use Types Packs/Day Years [...] answer 11/14/2024 How often do you attend [facility] or cheondo[facility] services? Patient unable to answer 11/14/2024 Do you belong to any clubs o r organizations such as roman catholic groups, unions, fraternal or athletic groups, or [...] Recorded Patient Health Questionnaire-2 Score 0 02/01/2023 [facility] - Occupational Stress Questionnaire Answer Date Recorded [...] place to sleep or slept in a halfway (including now)? No 07/19/2023 Housing Stability Vital [...] the past 12 months has th e electric, gas, oil, or water company threatened to shut off services in your home? Patient unable to answer 11/14/2024 PHQ-2A Answer Date Recorded Patient Health Questionnaire-2 Score 0 02/01/2023 Sex and Gender Information Value Date Recorded Sex Assigned at Not on file Legal Sex Male 8:40 PM EDT Gender Identity Not on file Sexual Orientation Not on file documented as of this encounter Functional Status * AUDIT-C Score Answer Date of Assessment Author -1 11/14/2024 3:00 PM Maximiliano Gardner RN * Question Answer Date of Assessment Author Q1: How often do you have a drink containing alcohol? Patient unable to answer 11/14/2024 3:00 PM Marie Gardner RN Q2: How many drinks containing alcohol [...] Date of Assessment Author No Risk Indicated 11/16/2024 8:00 AM EDT Steph Quispe RN * Question Answer Date of Assessment Author 1. Wish to be (Past 1 Month) No 025 8:00 AM EDT Steph Quispe RN 2. Non-Specific Active Suici ladan Thoughts (Past 1 Month) No 11/16/2024 8:00 AM EDT Roes Quispe RN 6. Suicidal Behavior (Lifetime) No 8:00 AM EDT Steph Quispe RN documented as of this encounter Plan of Treatment Not on file documented as of this encounter Procedures Procedure Name Priority Date/Time Associated Diagnosis Comments CT OUTSIDE IMAGES 11/12/2024 1:18 PM EDT documented in this encounter Results * CT OUTSIDE IMAGES (11/12/2024 1:18 PM EDT) Anatomical Region Laterality Modality Computed Tomogra phy 11/12/2024 1:18 PM EDT us Noni N David DO IMG CT PROCEDURES Final Result documented in this encounter Visit Diagnoses Not on filedocumented in this encounter Additional Health Concerns Infection [...] documented as of this encounter Care Teams Reconciler Relationship Specialty Start Date End Date Yovany Wlash MD [id number] [place] [address] PCP - General 10/13/24 Carloz Day MD [address] [place] [address] Surgeon Otolaryngology 02/17/21 Willie Sargent MD [address] [facility] [address] [place] [address] Surgeon Otolaryngology 08/13/21 documented as of this encounter
--- OUTSIDE RECORDS SUMMARY | 2025-01-02 14:05 | XMS_ITS | Encounter Summary ---
Author Organization [facility] Address [address] [place] [address] Care Team Providers Care Steward/Stewardess Deck Name Role Phone Carloz Day MD Unavailable [phone] Willie Sargent MD Unavailable Yovany Walsh MD Primary Care Provider [phone] Encounter Details Date Type Department Care Team (Latest Contact Info) Description 11/12/2024 Travel Social History Tobacco Use Types Packs/Day Years Used Date Smoking Tobacco: Some Days Cigarettes 0.5 9 Smokeless Tobacco: Never Alcohol Use Standard Drinks/Week Comments Not Currently 0 (1 standard drink = 0.6 oz pur e alcohol) Humiliation, Afraid, Rape, and Kick questionnair e Answer Date Recorded Within the last year, have y ou been afraid of your partner or ex-partner? No 07/19/2023 Within the last year, have y ou been humiliated or emotionally abused in other ways by your partner or ex-partner? No Within the last year, have y ou been kicked, hit, slapped, or otherwise physically hurt by your partner or ex-partner? No 07/19/2023 Within the last year, have y ou been raped or forced to have any kind of sexual activity by your partner or ex-partner? No 07/19/2023 PHQ-2 Answer Date Recorded Patient Health Questionnaire-2 Score 0 02/01/2023 Hunger Vital Sign Answer Date Recorded Within the past 12 months, y ou worried that your food would run out before you got the money to buy more. Sometimes true Within the past 12 months, t he food you bought just didn't last and you didn't have money to get more. Sometimes true 08/2023 PRAPARE - Transportation Answer Date Re corded In the past 12 months, has l ack of transportation kept you from medical appointments or from getting medications? Yes 08/2023 In the past 12 months, has l ack of transportation kept you from meetings, work, or from getting things needed for daily living? Yes 07/19/2023 Housing Stability Vital Sign Answer Son [...] place to sleep or slept in a [place] [facility] (including now)? No 07/19/2023 Utilities Answer Date Recorded In the past 12 months has th e electric, gas, oil, or water company threatened to shut off services in your home? No 07/19/2023 PHQ-2A Answer Date Recorded Patient Health Questionnaire-2 Score 0 02/01/2023 Sex and Gender Information Value Date Recorded Sex Assigned at Not on file Legal Sex Male 8:40 PM EDT Gender Identity Not on file Sexual Orientation Not on file documented as of this encounter Functional Status * Calculated C-SSRS Risk Score (Lifetime/Recent) Answer Date of Assessment Author No Risk Indicated 11/12/2024 8:00 PM EDT Janice Chavez RN * Question Answer Date of Assessment Author 1. Wish to be (Past 1 Month) No 025 8:00 PM EDT Janice Chavez RN 2. Non-Specific Active Suici ladan Thoughts (Past 1 Month) No 11/12/2024 8:00 PM EDT Jessica Chavez RN 6. Suicidal Behavior (Lifetime) No 8:00 PM EDT Janice Chavez RN documented as of this encounter Plan of Treatment Not on file documented as of this encounter Visit Diagnoses Not on filedocumented in this encounter Additional Health Concerns Infection Onset Date Last Indicated Resolved Time COVID-19 Rule-Out 11/12/2024 11/12/2024 11/13/2024 1:58 PM EDT Assessment Noted Time A fall risk assessment has been complete d for the patient 02/11/2023 9:08 AM EDT A Body Mass Index follow-up plan has been documented for the patient 11/18/2024 1:41 PM EDT documented as of this encounter Care Teams Steward/Stewardess Deck Relationship Specialty Start Date End Date Yovany Walsh MD [id number] [place] [address] PCP - General 10/13/24 aCrloz Day MD [address] [place] [id number] Surgeon Otolaryngology 02/17/21 Willie Sargent MD [address] [place] [address] Surgeon Otolaryngology 08/13/21 documented as of this encounter
--- OUTSIDE RECORDS SUMMARY | 2025-01-02 14:05 | XMS_ITS | Encounter Summary ---
Author Organization [facility] Address [address] [place] [address] Care Team Providers Care Aba Therapist Name Role Phone Carloz Day MD Unavailable [phone] Willie Sargent MD Unavailable Yovany Walsh MD Primary Care Provider [phone] Encounter Details Date Type Department Care Team (Latest Contact Info) Description 11/14/2024 Travel Social History Tobacco Use Types Packs/Day [...] answer 11/14/2024 How often do you attend chur ch or catholic services? Patient unable to answer 11/14/2024 Do you belong to any clubs o r organizations such as anabaptist groups, unions, fraternal or athletic groups, or [...] Recorded Patient Health Questionnaire-2 Score 0 02/01/2023 [facility] - Occupational Stress [...] place to sleep or slept in a long term (including now)? No 07/19/2023 Housing Stability Vital [...] answer 11/14/2024 3:00 PM Marie Gardner RN Q3: How often do you have six or more drinks on one occasion? Patient unable to answer 11/14/2024 3:00 PM Marie Gardner RN * Calculated C-SSRS Risk Score (Lifetime/Recent) Answer Date of Assessment Author No Risk Indicated 11/14/2024 8:00 AM EDT Kasandra Dodson RN * Question Answer Date of Assessment Author 1. Wish to be (Past 1 Month) No 025 8:00 AM EDT Kasandra Dodson RN 2. Non-Specific Active Suici ladan Thoughts (Past 1 Month) No 11/14/2024 8:00 AM EDT Kasandra Dodson RN 6. Suicidal Behavior (Lifetime) No 8:00 AM EDT Kasandra Dodson RN documented as of this encounter Plan of Treatment Not on file documented as of this encounter Visit Diagnoses Not on filedocumented in this encounter Additional Health Concerns Infection Onset Date Last Indicated Resolved Time Streptococcus pneumoniae 11/12/2024 11/12/2024 9:53 PM EDT Assessment Noted Time A fall risk assessment has been complete d for the patient 02/11/2023 9:08 AM EDT A Body Mass Index follow-up plan has been documented for the patient 11/18/2024 1:41 PM EDT documented as of this encounter Care Teams Aba Therapist Relationship Specialty Start Date End Date Yovany Walsh MD [id number] [place] [address] PCP - General 10/13/24 Carloz Day MD [address] [place] [id number] Surgeon Otolaryngology 02/17/21 Willie Sargent MD [address] [facility] [address] [place] [address] Surgeon Otolaryngology 08/13/21 documented as of this encounter
--- OUTSIDE RECORDS SUMMARY | 2025-01-02 14:05 | XMS_ITS | Encounter Summary ---
Author Organization Healthcare Address [address] [place] [address] Care Team Providers Care V Groove Cutter Name Role Phone Carloz Day MD Unavailable [phone] Willie Sargent MD Unavailable Yovany Walsh MD Primary Care Provider [phone] Encounter Details Date Type Department Care Team (Late st Contact Info) Description 11/12/2024 Orders Only External Location [address] [place] [address] Noni Hernandez, DO [address] [place] [address] Social History Tobacco Use Types [...] answer 11/14/2024 How often do you attend [facility] or confucianist services? Patient unable to answer 11/14/2024 Do you belong to any clubs o r organizations such as anglican groups, unions, fraternal or athletic groups, or [...] Recorded Patient Health Questionnaire-2 Score 0 02/01/2023 [facility] - Occupational Stress Questionnaire Answer Date [...] place to sleep or slept in a custodial (including now)? No 07/19/2023 Housing Stability Vital [...] 1 Month) No 11/16/2024 8:00 AM EDT Rose Quispe RN 6. Suicidal Behavior (Lifetime) No 8:00 AM EDT Steph Quispe RN documented as of this encounter Plan of Treatment Not on file documented as of this encounter Procedures Procedure Name Priority Date/Time Associated Diagnosis Comments CT OUTSIDE IMAGES 11/12/2024 1:20 PM EDT documented in this encounter Results * CT OUTSIDE IMAGES (11/12/2024 1:20 PM EDT) Anatomical Region Laterality Modality Computed Tomogra phy 11/12/2024 1:20 PM EDT us Noni N David DO [...] documented as of this encounter Care Teams V Groove Cutter Relationship Specialty Start Date End Date Yovany Walsh MD [id number] [place] [address] PCP - General 10/13/24 Carloz Day MD [address] [place] [address] Surgeon Otolaryngology 02/17/21 Willie Sargent MD [address] [facility] [address] [place] [address] Surgeon Otolaryngology 08/13/21 documented as of this encounter
--- OUTSIDE RECORDS SUMMARY | 2025-01-02 14:05 | XMS_ITS | Encounter Summary ---
Author Organization Healthcare Address [address] [place] [address] Care Team Providers Care Deckhand Maintenance Name Role Phone Carloz Day MD Unavailable [phone] Willie Sargent MD Unavailable Yovany Walsh MD Primary Care Provider [phone] Encounter Details Date Type Department Care Team (Late st Contact Info) Description 11/12/2024 Orders Only External Location [address] [place] [address] Noni Hernandez, DO [address] [place] [address] Social History Tobacco Use Types [...] answer 11/14/2024 How often do you attend [facility] or roman catholic services? Patient unable to answer 11/14/2024 Do you belong to any clubs o r organizations such as zoroastrian groups, unions, fraternal or athletic groups, or [...] Recorded Patient Health Questionnaire-2 Score 0 02/01/2023 [facility] - Occupational Stress Questionnaire Answer Date Recorded [...] place to sleep or slept in a skilled nursing (including now)? No 07/19/2023 Housing Stability Vital [...] Associated Diagnosis Comments CT OUTSIDE IMAGES 11/12/2024 1:22 PM EDT documented in this encounter Results * CT OUTSIDE IMAGES (11/12/2024 1:22 PM EDT) Anatomical Region Laterality Modality Computed Tomogra phy 11/12/2024 1:22 PM EDT us Noni Hernandez DO IMG CT PROCEDURES Final Result documented [...] documented as of this encounter Care Teams Deckhand Maintenance Relationship Specialty Start Date End Date Yovany Walsh MD [id number] [place] [address] PCP - General 10/13/24 Carloz Day MD [address] [place] [address] Surgeon Otolaryngology 02/17/21 Willie Sargent MD [address] [facility] [address] [place] [address] Surgeon Otolaryngology 08/13/21 documented as of this encounter
--- OUTSIDE RECORDS SUMMARY | 2025-01-02 14:05 | XMS_ITS | Encounter Summary ---
Author Organization Healthcare Address [address] [place] [address] Care Team Providers Care Delineator Name Role Phone Carloz Day MD Unavailable [phone] Willie Sargent MD Unavailable Yovany Walsh MD Primary Care Provider [phone] Encounter Details Date Type Department Care Team (Late st Contact Info) Description 11/12/2024 Orders Only External Location [address] [place] [address] Noni Hernandez, DO [address] [place] [address] Social History Tobacco Use Types [...] answer 11/14/2024 How often do you attend [facility] or mosque services? Patient unable to answer 11/14/2024 Do you belong to any clubs o r organizations such as restoration groups, unions, fraternal or athletic groups, or [...] Recorded Patient Health Questionnaire-2 Score 0 02/01/2023 [facility] - Occupational Stress Questionnaire Answer Date [...] place to sleep or slept in a snf (including now)? No 07/19/2023 Housing Stability Vital [...] Associated Diagnosis Comments CT OUTSIDE IMAGES 11/12/2024 1:16 PM EDT documented in this encounter Results * CT OUTSIDE IMAGES (11/12/2024 1:16 PM EDT) Anatomical Region Laterality Modality Computed Tomogra phy 11/12/2024 1:16 PM EDT us Nnoi N David DO IMG CT PROCEDURES Final [...] documented as of this encounter Care Teams Delineator Relationship Specialty Start Date End Date Yovany Walsh MD [id number] [place] [address] PCP - General 10/13/24 Carloz Day MD [address] [place] [address] Surgeon Otolaryngology 02/17/21 Willie Sargent MD [address] [facility] [address] [place] [address] Surgeon Otolaryngology 08/13/21 documented as of this encounter
--- OUTSIDE RECORDS SUMMARY | 2025-01-02 14:05 | XMS_ITS | Clinical Summary ---
Author Organization [facility] Address [address] [place] [address] Care Team Providers Care Corn Detasseler Name Role Phone Carloz Day MD Unavailable [phone] Willie Sargent MD Unavailable Yovany Walsh MD Primary Care Provider [phone] Allergies Active Allergy Reactions Criticality Noted Date Comments Penicillin G Rash Low 01/15/2017 Patient reports respiratory sxs as a child with penicillin but as an adult has only had rash. Reports he has tolerated cephalexin in past. Medications montelukast (Singulair) 10 MG tablet Take 1 tablet by mouth daily. Active DULoxetine (Cymbalta) [address] capsule Take 1 capsule by mouth daily. Do not crush or chew. Active naloxone (Kloxxado) 8 mg/0.1 mL nasal spray 1. Give 1 spray in nostril for no/slow breathing or cannot wake after opioid use 2. Call 911 3. Repeat in other nostril if symptoms continue 1 each 4 Active valsartan (Diovan) 80 MG tablet Take 1 tablet (80 mg) by mouth 1 (one) time each day. 30 tablet 4 Active levothyroxine (Synthroid, Levoxyl) 125 MCG tablet Take 1 tablet by mouth daily before breakfast. Active pantoprazole (Protonix) 40 MG EC tablet Take 1 tablet by mouth 2 times a day. Do not crush, chew, or split. Active Budeson-Glycop yrrol-Formoter ol (Breztri Aerosphere) 160-9-4.8 MCG/ACT aerosol Inhale 2 puffs 2 times a day. Active amLODIPine (Norvasc) 10 MG tablet Take 1 tablet by mouth daily. 30 tablet 2 5 02/18/20 25 Active albuterol 108 (90 Base) MCG/ACT inhaler Inhale 2 puffs every 4 to 6 hours as needed for wheezing. 1 each 1 5 Active atorvastatin (Lipitor) 40 MG tablet Take 1 tablet by mouth nightly. 30 tablet 2 5 02/17/20 25 Active acetaminophen (Tylenol) 325 MG tablet Take 2 tablets by mouth every 4 hours as needed for fever (for temperature > 38.5). Under [place] law, monthly prescriptions (30 days) can be refilled at 25 days and three-month prescriptions (90 days) at 80 days. Please contact the insurance company with questions if refills are denied. 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 Resolved Problems Problem Noted Date Diagnosed Date [...] neuro-ophthalmology outpatient for visual field testing -30d rn disease management vs ILR at discharge given possible cardioembolic [...] (02/18/2021): Added automatically from request for surgery [id number] Lesion of left lower eyelid 02/17/2021 02/17/2021 [...] (02/17/2021): Stage III - Unknown primary location Encounters Date Type Department Care Team Description 11/28/2024 Patient Outreach POPULATION [address], [address] [address] Georgia Resendez LPN TCM Call 11/21/2024 Patient Outreach [address] [place], [address] [address] Georgia Resendez LPN TCM Call 11/20/2024 Patient Outreach [address], [address] [address] Georgia Resendez BAGGAGE CLERK TCM Call 11/19/2024 Patient Outreach [address], [address] [address] Georgia Resendez BAGGAGE CLERK TCM Call 11/14/2024 Travel 11/13/2024 Travel 11/12/2024 6:24 PM EDT - 11/18/2024 3:24 PM EDT Hospital Encounter P[facility] H Inpatient [address] [place] [address] Kan Lucero MD Dhar, Sanjay, MD Foley, William S, MD Acute renal failure with tubular necrosis (CMS/HCC) (Primary Dx); Acute renal failure, unspecified acute renal failure type (CMS/HCC); Shock (CMS/HCC); Community acquired pneumonia, unspecified laterality; Hyperkalemia; Acute hypoxic respiratory failure; Stenosis of carotid artery, unspecified laterality; PVD (peripheral vascular disease) (CMS/HCC); Acquired obstruction of left nasolacrimal duct Discharge Disposition: Home or Self Care 11/12/2024 Travel 11/12/2024 Orders Only External Location [address] [place] [address] Noni Hernandez N, DO 11/12/2024 Orders Only External Location [address] [place] [address] Noni Hernandez N, DO 11/12/2024 Orders Only External Location [address] [place] [address] Noni Hernandez N, DO 11/12/2024 Orders Only External Location [address] [place] [address] Noni Hernandez N, DO 11/12/2024 Orders Only External Location [address] [place] [address] Noni Hernandez N, DO 11/12/2024 Orders Only External Location [address] [place] [address] Noni Hernandez N, DO from Last 3 Months Immunizations Immunization Administration Dates Next Due Influenza, high-dose, quadrivalent 04/30/2022 Influenza, injectable, quadrivalent 06/08/2019 Influenza, injectable, quadrivalent, preservativ e free 06/26/2021,04/11/2020 Pneumococcal Conjugate PCV 13 04/30/2022 Family History Medical History Relation Name Comments Cancer Father Hypertension Father Cancer Mother Cancer Mother's Brother Cancer Mother's Sister Cancer Paternal Grandfather Glaucoma Paternal Grandfather Anesthesia problems Neg Hx Malig Hyperthermia Neg Hx Relation Name Status Comments Father Mother Mother's Brother Mother's Sister Paternal Grandfather Social History Tobacco Use Types Packs/Day Years Used Date Smoking Tobacco: Some Days Cigarettes 0.5 9 Smokeless Tobacco: Never Tobacco Cessation:Ready to Q uit: Not Asked; Counseling Given: Not Answered Alcohol Use Standard Drinks/Week Comments Not Currently [...] answer 11/14/2024 How often do you attend [facility] or anabaptist services? Patient unable to answer 11/14/2024 Do you belong to any clubs o r organizations such as voodoo groups, unions, [employer] or athletic groups, or school groups? Patient [...] Recorded Patient Health Questionnaire-2 Score 0 02[facility]2023 [facility] Questionnaire Answer Date [...] place to sleep or slept in a retirement (including now)? No 07/19/2023 Housing Stability Vital [...] on file Sexual Orientation Not on file Last Filed Vital Signs Vital Sign Reading [...] Mass Index 34.54 11/12/2024 7:00 PM EDT Plan of Treatment Health Maintenance Due Date Last Done Comments [facility]-Medicare Annual Wellness (AWV) 1955 [facility]-/Child/Adol SDOH Screenings 1955 [id number] Vaccine (#1) 1962 [facility]-DTaP,Tdap,and Td Vaccines (1 - Tdap) 02/07/1976 [facility]-Hepatitis A Vaccines (1 of 2 - Risk 2-dose series) 02/07/1976 [facility]-Zoster Vaccines (1 of 2) 02/07/1976 CT Colonography 2002 Colonoscopy 2002 FIT-DNA 2002 FIT 2002 FOBT 2002 Sigmoidoscopy 2002 [facility]-Colorectal Cancer Screening 2002 [facility]-RSV Vaccine: 60+ Years or (1 - Risk 60-74 years 1-dose series) 2017 [facility]-Pneumococcal Vaccine: 50+ Years (2 of 2 - PPSV23) 06/25/2022 04/30/2022 [facility]-Depression Screening 02/02/2024 02/01/2023 [facility]-Influenza Vaccine (Season Ended) 2025 07/06/2023, 04/30/2022, 06/26/2021, Additional history exists [facility]- SDOH Screenings 05/16/2025 [facility]-Adult SDOH Screenings 05/16/2025 11/14/2024 [facility]-Diabetes: Hemoglobin A1C 11/12/2025, 07/12/2023, 08/04/2022 [facility]-Hepatitis C Screening Completed 11/12/2024 [facility]-Obesity Intervention Completed 025, 07/12/2023, 02/11/2023, Additional history exists HPV Vaccines Aged Out No longer eligi ble based on patient's age to complete this topic [facility]-HIB Vaccines Aged Out No longer e ligible based on patient's age to complete this topic [facility]-IPV Vaccines Aged Out No longer e ligible based on patient's age to complete this topic [facility]-Rotavirus Vaccines Aged Out No lo nger eligible based on patient's age to complete this topic Medical Devices Implanted Type Area Catch Basin Cleaner Device Identifier Shelf Expiration Date Model / Serial / Lot Tubes Lacrimal Pj 0.6mm X 150mm - [id number] - [id number] Implanted:Qty: 1 on 02/23/2021 by Dereje Shoemaker MD at [facility] Implant Left: Eye [employer]-[id number] 11/18/2024 LIS27T / [id number] / [id number] Screw 3.5mm Cortex Selftap 40mm - [id number] Implanted:Qty: 2 on 07/31/2022 by Pio Husain MD at [facility] Right: Hip Synthes [facility]-[id number] 07/31/2023 204.840 / / Chip Bone 20cc - [id number] - [id number] Implanted:Qty: 1 on 07/31/2022 by Pio Husain MD at [facility] Right: [facility][id number] 05/27/2027 PCAN1/4 / [id number] / [id number] Screw 3.5mm Cortex Selftap 46mm - [id number] Implanted:Qty: 1 on 07/31/2022 by Pio Husain MD at [facility] Right: Hip Synthes [facility]-[id number] 07/31/2023 204.846 / / Plate Plvc Rcn Low Pro 3.5mm 7 Holes - [id number] Implanted:Qty: 2 on 07/31/2022 by Pio Husain MD at [facility] Right: Hip [employer] [place]-[id number] 07/31/2023 245.027 / / Screw 3.5mm Cortex Selftap 26mm - [id number] Implanted:Qty: 1 on 07/31/2022 by Pio Husain MD at [facility] Right: Hip [employer] [place]-[id number] 07/31/2023 204.826 / / Screw 3.5mm Cortex Selftap 30mm - [id number] Implanted:Qty: 1 on 07/31/2022 by Pio Husain MD at [facility] Right: Hip [employer] [place]-[id number] 07/31/2023 204.830 / / Screw 3.5mm Cortex Selftap 34mm - [id number] Implanted:Qty: 1 on 07/31/2022 by Pio Husain MD at [facility] Right: Hip [employer] [place]-[id number] 07/31/2023 204.834 / / Screw 3.5mm Cortex Selftap 36mm - [id number] Implanted:Qty: 1 on 07/31/2022 by Pio Husain MD at [facility] Right: Hip [employer] [place]-[id number] 07/31/2023 204.836 / / Screw 3.5mm Cortex Selftap 38mm - [id number] Implanted:Qty: 1 on 07/31/2022 by Pio Husain MD at [facility] Right: Hip [employer] [place]-[id number] 07/31/2023 204.838 / / Procedures Procedure Name Priority Date/Time Associated Diagnosis Comments CBC WITH AUTO DIFFERENTIAL Routine 11/18/2024 2:55 AM EDT CYSTATIN C Routine 11/18/2024 2:55 AM EDT IONIZED CALCIUM, WHOLE BLOOD Routine 11/18/2024 2:55 AM EDT MAGNESIUM, PLASMA Routine 11/18/2024 2:5 5 AM EDT RENAL FUNCTION PANEL, PLASMA Routine 11/18/2024 2:55 AM EDT POCT GLUCOSE METER UNSOLICITED RESULTS Routine 11/17/2024 11:52 AM EDT OXYGEN THERAPY Routine 11/17/2024 6:00 AM EDT POCT GLUCOSE METER UNSOLICITED RESULTS Routine 11/17/2024 5:58 AM EDT CYSTATIN C Add-On 11/16/2024 11:47 PM EDT IONIZED CALCIUM, WHOLE BLOOD Routine 11/16/2024 11:47 PM EDT MAGNESIUM, PLASMA Routine 11/16/2024 11: 47 PM EDT RENAL FUNCTION PANEL, PLASMA Routine 11/16/2024 11:47 PM EDT CBC W/O DIFFERENTIAL Routine 11/16/2024 11:47 PM EDT POCT GLUCOSE METER UNSOLICITED RESULTS Routine 11/16/2024 6:15 AM EDT OXYGEN THERAPY Routine 11/16/2024 6:00 AM EDT POCT GLUCOSE METER UNSOLICITED RESULTS Routine 11/16/2024 12:32 AM EDT CBC W/O DIFFERENTIAL Routine 11/16/2024 12:26 AM EDT IONIZED CALCIUM, WHOLE BLOOD Routine 11/16/2024 12:26 AM EDT PHOSPHORUS, PLASMA [...] WHOLE BLOOD Routine 11/15/2024 12:17 AM EDT PHOSPHORUS, PLASMA Routine 11/15/2024 12 :17 AM EDT MAGNESIUM, PLASMA Routine 11/15/2024 12: 17 AM EDT BASIC METABOLIC PANEL, PLASMA Routine 11/15/2024 12:17 AM EDT CBC W/O DIFFERENTIAL Routine 11/15/2024 12:17 AM EDT POCT GLUCOSE [...] 1 VIEW Routine 11/14/2024 2:22 AM EDT PHOSPHORUS, PLASMA Routine 11/13/2024 11 :55 PM EDT MAGNESIUM, PLASMA Routine 11/13/2024 11: 55 PM EDT IONIZED CALCIUM, WHOLE BLOOD Routine 11/13/2024 11:55 PM EDT CBC W/O DIFFERENTIAL Routine 11/13/2024 11:55 PM EDT BASIC METABOLIC PANEL, PLASMA Timed [...] PANEL, PLASMA Timed 11/13/2024 7:45 AM EDT SC CRITICAL CARE, E/M 30-74 MINUTES Routine 11/13/2024 7:19 AM EDT Acute renal failure with tubular necrosis (CMS/HCC) Shock (CMS/HCC) Hyperkalemia Acute hypoxic respiratory failure OXYGEN THERAPY Routine 11/13/2024 6:00 AM EDT POCT GLUCOSE METER UNSOLICITED RESULTS Routine 11/13/2024 5:14 AM EDT BLOOD GAS PANEL, ARTERIAL Routine 11/13/2024 5:13 AM EDT BLOOD GAS PANEL, ARTERIAL Routine 11/13/2024 1:58 AM EDT PHOSPHORUS, PLASMA Routine 11/13/2024 1: 58 AM EDT MAGNESIUM, PLASMA Routine 11/13/2024 1:5 8 AM EDT SERUM DRUG SCREEN Routine 11/13/2024 1:5 8 AM EDT BASIC METABOLIC PANEL, PLASMA Routine 11/13/2024 1:58 AM EDT IONIZED CALCIUM, SERUM Routine 1:58 AM EDT CBC W/O DIFFERENTIAL Routine 11/13/2024 1:58 AM EDT RESPIRATORY CULTURE AND GRAM STAIN Routine 11/12/2024 11:57 PM EDT POCT GLUCOSE METER UNSOLICITED RESULTS Routine 11/12/2024 11:48 PM EDT XR CHEST 1 VIEW STAT 11/12/2024 10:51 PM EDT SC CRITICAL CARE, E/M 30-74 MINUTES Routine 11/12/2024 10:26 PM EDT Acute renal failure with tubular necrosis (CMS/HCC) Acute renal failure, unspecified acute renal failure type (CMS/HCC) Shock (CMS/HCC) Community acquired pneumonia, unspecified laterality Hyperkalemia CVC TRIPLE LUMEN (SMARTFORM LINK) Routine 11/12/2024 9:58 PM EDT Shock (CMS/HCC) HC INSERT NON-TUNNEL CV CATH Routine 11/12/2024 9:58 PM EDT Shock (CMS/HCC) SC INSERT NON-TUNNEL CV CATH Routine 11/12/2024 9:58 PM EDT Shock (CMS/HCC) HC INSERT CATH,ART,PERCUT,VALE ERM Routine 11/12/2024 9:42 PM EDT Acute renal failure with tubular necrosis (CMS/HCC) SC INSERT CATH,ART,PERCUT,VALE ERM Routine 11/12/2024 9:42 PM [...] ECG ADULT STAT 11/12/2024 7:56 PM EDT PHOSPHORUS, PLASMA Routine 11/12/2024 7: 03 PM EDT MAGNESIUM, PLASMA Routine 11/12/2024 7:0 3 PM EDT BASIC METABOLIC PANEL, PLASMA Routine 11/12/2024 7:03 PM EDT BETA HYDROXYBUTYRIC ACID Routine 11/12/2024 7:03 PM EDT XR CHEST 1 VIEW STAT 11/12/2024 6:59 PM EDT URINALYSIS MICROSCOPIC FOR UA REFLEX Routine 11/12/2024 6:57 PM EDT COMPREHENSIVE URINE DRUG SCREENING,QUALITATIVE ASSAY, >= 27 DRUG CLASSES Routine 11/12/2024 6:57 PM EDT SODIUM, URINE, RANDOM Routine 11/12/2024 6:57 PM EDT CREATININE, RANDOM URINE Routine 11/12/2024 6:57 PM EDT URINALYSIS WITH REFLEX MICROSCOPIC Routine 11/12/2024 6:57 PM EDT STREPTOCOCCUS PNEUMONIAE AND LEGIONELLA URINARY ANTIGEN Routine 11/12/2024 6:57 PM EDT OXYGEN THERAPY Routine 11/12/2024 6:51 PM EDT OXYGEN THERAPY Routine 11/12/2024 6:51 PM EDT OXYGEN THERAPY Routine 11/12/2024 6:51 PM EDT NON-INVASIVE VENTILATION Routine 11/12/2024 6:51 PM EDT NON-INVASIVE VENTILATION Routine 11/12/2024 6:51 PM EDT NON-INVASIVE VENTILATION Routine 11/12/2024 6:51 PM EDT METHICILLIN RESISTANT STAPHYLOCOCCUS AUREUS (MRSA) BY PCR Routine 11/12/2024 6:51 PM EDT SARS COV-2/COVID-19 BY PCR Routine 11/12/2024 6:51 PM EDT MULTI DRUG RESISTANCE TEST Routine 11/12/2024 6:51 PM EDT ROSIE AURIS SURVEILLANCE BY PCR Routine 11/12/2024 6:51 PM EDT CYSTATIN C Routine 11/12/2024 6:48 PM EDT FREE T4, PLASMA Routine 11/12/2024 6:48 PM EDT TSH Routine 11/12/2024 6:48 PM EDT ACUTE HEPATITIS PANEL Routine 11/12/2024 6:48 PM EDT SALICYLATE, QUANTITATIVE, PLASMA Routine 11/12/2024 6:48 PM EDT PROCALCITONIN, PLASMA Routine 11/12/2024 6:48 PM EDT N-TERMINAL PROBNP, PLASMA Routine 11/12/2024 6:48 PM EDT CORTISOL Routine 11/12/2024 6:48 PM EDT ACETAMINOPHEN, QUANTATATIVE, PLASMA Routine 11/12/2024 6:48 PM EDT TYPE AND SCREEN Routine 11/12/2024 6:48 PM EDT TROPONIN T, HIGH SENSITIVITY, CARDIAC RISK ASSESSMENT STAT 11/12/2024 6:48 PM EDT PROTHROMBIN TIME(PT) / INR STAT 11/12/2024 6:48 PM EDT MAGNESIUM, PLASMA STAT 11/12/2024 6:4 8 PM EDT PHOSPHORUS, PLASMA STAT 11/12/2024 6: 48 PM EDT CBC WITH AUTO DIFFERENTIAL STAT 11/12/2024 6:48 PM EDT COMPREHENSIVE METABOLIC PANEL, PLASMA STAT 11/12/2024 6:48 PM EDT HEMOGLOBIN A1C Routine 11/12/2024 6:48 PM EDT BLOOD CULTURE (AEROBIC/ANAEROBIC SET) Routine 11/12/2024 6:48 PM EDT POCT VENOUS BLOOD GAS GEM UNSOLICITED RESULTS Routine 11/12/2024 6:41 PM EDT POCT GLUCOSE METER UNSOLICITED RESULTS Routine 11/12/2024 6:30 PM EDT OXYGEN THERAPY Routine 11/12/2024 6:24 PM EDT OXYGEN THERAPY Routine 11/12/2024 6:[address] OUTSIDE IMAGES 11/12/2024 1:[address] OUTSIDE IMAGES 11/12/2024 1:[address] OUTSIDE IMAGES 11/12/2024 1:[address] OUTSIDE IMAGES 11/12/2024 1:[address] OUTSIDE IMAGES 11/12/2024 1:[address] OUTSIDE IMAGES 11/12/2024 12: 44 PM EDT from Last 3 Months Results * Ionized calcium, whole blood (11/18/2024 2:55 AM EDT) Only the most recent of5 resultswithin the time period is included. [facility] Ionized Calcium, Whole Blood 4.7 4.6 - 5.1 mg/dL LAB HEMATOLOGY METHOD 11/18/2024 3:11 AM EDT [facility] Blood Venous blood specimen / Unknown Venipuncture / Unknown 11/18/2024 2:55 AM EDT 11/18/2024 3:09 AM EDT Ellen Mendez APRN LAB BLOOD ORDERABLES Fin al Result Performing Organization Address City/[facility] Co de Phone Number [facility] [address] [place] [address] * (ABNORMAL) Cystatin C (11/18/2024 2:55 AM EDT) Only the most recent of4 resultswithin the time period is included. [facility] Cystatin C 1.41(H) 0.61 - 0.95 mg/L 11/18/2024 3:44 AM EDT [facility] Blood Venous blood specimen / Unknown Venipuncture / Unknown 11/18/2024 2:55 AM EDT 11/18/2024 3:10 AM EDT us Justo Perry MD LAB BLOOD ORDERABLES Final Re sult Performing Organization Address City/[facility]/ZIP Co de Phone Number [facility] [address] [place] [address] * (ABNORMAL) CBC and differential (11/18/2024 2:55 AM EDT) Only the most recent of2 resultswithin the time period is included. [facility] WBC Count 5.82 3.70 - 10.30 10*3/uL LAB HEMATOLOGY METHOD 11/18/2024 3:19 AM EDT [facility] RBC Count 3.24(L) 4.60 - 6.10 10*6/uL LAB HEMATOLOGY METHOD 11/18/2024 3:19 AM EDT [facility] HGB 9.9(L) 13.7 - 17.5 g/dL LAB HEMATOLOGY METHOD 11/18/2024 3:19 AM EDT [facility] HCT 30.3(L) 40.0 - 51.0 % LAB HEMATOLOGY METHOD 11/18/2024 3:19 AM EDT [facility] Platelet Count 152(L) 155 - 369 10*3/uL LAB HEMATOLOGY METHOD 11/18/2024 3:19 AM EDT [facility] MCV 94 79 - 98 fL LAB HEMATOLOGY METHOD 11/18/2024 3:19 AM EDT [facility] MCH 30.6 26.0 - 32.0 pg LAB HEMATOLOGY METHOD 11/18/2024 3:19 AM EDT [facility] MCHC 32.7 30.7 - 35.5 g/dL LAB HEMATOLOGY METHOD 11/18/2024 3:19 AM EDT [facility] RDW 13.7 11.5 - 14.5 % LAB HEMATOLOGY METHOD 11/18/2024 3:19 AM EDT [facility] MPV 9.6 8.8 - 12.5 fL LAB HEMATOLOGY METHOD 11/18/2024 3:19 AM EDT [facility] nRBC 0.0 <=0.0 per 100 WBCs LAB HEMATOLOGY METHOD 11/18/2024 3:19 AM EDT [facility] Differential Type Automated LAB HEMATOLOGY METHOD 11/18/2024 3:19 AM EDT [facility] Neutrophils % 68 % LAB HEMATOLOGY METHOD 11/18/2024 3:19 AM EDT [facility] Lymphocytes % 19 % LAB HEMATOLOGY METHOD 11/18/2024 3:19 AM EDT [facility] Monocytes % 9 % LAB HEMATOLOGY METHOD 11/18/2024 3:19 AM EDT [facility] Eosinophils % 2 % LAB HEMATOLOGY METHOD 11/18/2024 3:19 AM EDT [facility] Basophils % 1 % LAB HEMATOLOGY METHOD 11/18/2024 3:19 AM EDT [facility] Immature Granulocytes % 1 % LAB HEMATOLOGY METHOD 11/18/2024 3:19 AM EDT [facility] Neutrophils Absolute 3.99 1.60 - 6.10 10*3/uL LAB HEMATOLOGY METHOD 11/18/2024 3:19 AM EDT [facility] Lymphocytes Absolute 1.08(L) 1.20 - 3.90 10*3/uL LAB HEMATOLOGY METHOD 11/18/2024 3:19 AM EDT [facility] Monocytes Absolute 0.51 0.30 - 0.90 10*3/uL LAB HEMATOLOGY METHOD 11/18/2024 3:19 AM EDT [facility] Eosinophils Absolute 0.13 0.00 - 0.50 10*3/uL LAB HEMATOLOGY METHOD 11/18/2024 3:19 AM EDT [facility] Basophils Absolute 0.03 0.00 - 0.10 10*3/uL LAB HEMATOLOGY METHOD 11/18/2024 3:19 AM EDT [facility] Immature Granulocytes Absolute 0.08(H) 0.00 - 0.06 10*3/uL LAB HEMATOLOGY METHOD 11/18/2024 3:19 AM EDT [facility] Blood Venous blood specimen / Unknown Venipuncture / Unknown 11/18/2024 2:55 AM EDT 11/18/2024 3:09 AM EDT Narrative [facility] - 11/18/2024 3:19 AM EDT Therapeutic decision making should be based on absolute values, rather than percentages. Justo Perry MD LAB BLOOD ORDERABLES Final Re sult [facility] [address] [place] [address] * Magnesium, Plasma (11/18/2024 2:55 AM EDT) Only the most recent of8 resultswithin the time period is included. Magnesium, Plasma 2.0 1.9 - 2.4 mg/dL 11/18/2024 3:44 AM EDT [facility] Blood Venous blood specimen / Unknown Venipuncture / Unknown 11/18/2024 2:55 AM EDT 11/18/2024 3:10 AM EDT us MEREDITH Elizabeth III LAB BLOOD ORDERABLES Lenka simpson Result [facility] [address] [place] [address] * (ABNORMAL) Renal Function Panel, Plasma (11/18/2024 2:55 AM EDT) Only the most recent of2 resultswithin the time period is included. Glucose, Plasma 104(H) 74 - 99 mg/dL 11/18/2024 3:44 AM EDT [facility] BUN, Plasma 20 8 - 23 mg/dL 11/18/2024 3:44 AM EDT [facility] Creatinine, Plasma 1.01 0.70 - 1.20 mg/dL 11/18/2024 3:44 AM EDT [facility] BUN/Creatinine Ratio 20 11/18/2024 3:44 AM EDT [facility] Sodium, Plasma 141 136 - 145 mmol/L 11/18/2024 3:44 AM EDT [facility] Potassium, Plasma 4.2 3.6 - 4.9 mmol/L 11/18/2024 3:44 AM EDT [facility] Chloride, Plasma 107 97 - 107 mmol/L 11/18/2024 3:44 AM EDT [facility] CO2, Plasma 24 22 - 29 mmol/L 11/18/2024 3:44 AM EDT [facility] Anion Gap 10 6 - 16 mmol/L 11/18/2024 3:44 AM EDT [facility] Total Calcium, Plasma 9.2 8.9 - 10.2 mg/dL 11/18/2024 3:44 AM EDT [facility] Phosphorus, Plasma 2.6 2.5 - 4.5 mg/dL 11/18/2024 3:44 AM EDT [facility] Albumin, Plasma 3.2(L) 3.5 - 5.2 g/dL 11/18/2024 3:44 AM EDT [facility] eGFRcr 81.5 mL/min/1.7 3m*2 11/18/2024 3:44 AM EDT [facility] Comment:Reported eGFRcr in m L/min/1.73m2 is based the CKD-EPI 2020 equation that does not use a race coefficient. Blood Venous blood specimen / Unknown Venipuncture / Unknown 11/18/2024 2:55 AM EDT 11/18/2024 3:10 AM EDT us MEREDITH Elizabeth III LAB BLOOD ORDERABLES Lenka l Result Performing Organization Address [facility] Co de Phone Number [facility] [address] [place] [address] * (ABNORMAL) POCT glucose meter (11/17/2024 11:52 AM EDT) Only the most recent of22 resultswithin the time period is included. [facility] POCT Glucose 111(H) 74 - 99 mg/dL 11/17/2024 11:54 AM EDT [facility] Comment:Accuracy of a [...] Comment 11/17/2024 11:54 AM EDT [facility] Valver ID Danette Camargo 11/17/2024 11:54 AM EDT [facility] Device ID [id number] 11/17/2024 11:54 AM EDT [facility] Specimen Type POC Capillary 11/17/2024 11:54 AM EDT [facility] Blood Capillary blood specimen / Unknown 11/17/2024 11:52 AM EDT 11/17/2024 11:54 AM EDT us Justo Perry MD LAB POINT OF CARE TE ST DOCKED DEVICE UNSOLICITED RESULTS Final Result Performing Organization Address City/[facility]/ZIP Co de Phone Number [facility] [address] [place] [address] * (ABNORMAL) CBC W/O Differential (11/16/2024 11:47 PM EDT) Only the most recent of5 resultswithin the time period is included. WBC Count 6.59 3.70 - 10.30 10*3/uL LAB HEMATOLOGY METHOD 11/17/2024 12:02 AM EDT [facility] RBC Count 3.47(L) 4.60 - 6.10 10*6/uL LAB HEMATOLOGY METHOD 11/17/2024 12:02 AM EDT [facility] HGB 10.5(L) 13.7 - 17.5 g/dL LAB HEMATOLOGY METHOD 11/17/2024 12:02 AM EDT [facility] HCT 32.6(L) 40.0 - 51.0 % LAB HEMATOLOGY METHOD 11/17/2024 12:02 AM EDT [facility] Platelet Count 166 155 - 369 10*3/uL LAB HEMATOLOGY METHOD 11/17/2024 12:02 AM EDT [facility] MCV 94 79 - 98 fL LAB HEMATOLOGY METHOD 11/17/2024 12:02 AM EDT [facility] [facility] MCH 30.3 26.0 - 32.0 pg LAB HEMATOLOGY METHOD 11/17/2024 12:02 AM EDT [facility] MCHC 32.2 30.7 - 35.5 g/dL LAB HEMATOLOGY METHOD 11/17/2024 12:02 AM EDT [facility] RDW 14.0 11.5 - 14.5 % LAB HEMATOLOGY METHOD 11/17/2024 12:02 AM EDT [facility] MPV 9.6 8.8 - 12.5 fL LAB HEMATOLOGY METHOD 11/17/2024 12:02 AM EDT [facility] nRBC 0.0 <=0.0 per 100 WBCs LAB HEMATOLOGY METHOD 11/17/2024 12:02 AM EDT [facility] Blood Venous blood specimen / Unknown Venipuncture / Unknown 11/16/2024 11:47 PM EDT 11/16/2024 11:55 PM EDT us MEREDITH Elizabeth III LAB BLOOD ORDERABLES Lenka l Result [facility] [address] [place] [address] * Phosphorus, Plasma (11/16/2024 12:26 AM EDT) Only the most recent of6 resultswithin the time period is included. Phosphorus, Plasma 2.8 2.5 - 4.5 mg/dL 11/16/2024 1:25 AM EDT [facility] Blood Venous blood specimen / Unknown Venipuncture / Unknown 11/16/2024 12:26 AM EDT 11/16/2024 12:37 AM EDT us Krystina Jefferson LEAD PROCESS ENGINEER LAB BLOOD ORDERABLES Fi nal Result [facility] [address] [place] [address] * (ABNORMAL) Basic metabolic panel (11/16/2024 12:26 AM EDT) Only the most recent of10 resultswithin the time period is included. Glucose, Plasma 111(H) 74 - 99 mg/dL 11/16/2024 1:25 AM EDT [facility] BUN, Plasma 25(H) 8 - 23 mg/dL 11/16/2024 1:25 AM EDT [facility] Creatinine, Plasma 0.92 0.70 - 1.20 mg/dL 11/16/2024 1:25 AM EDT [facility] BUN/Creatinine Ratio 27 11/16/2024 1:25 AM EDT [facility] Sodium, Plasma 145 136 - 145 mmol/L 11/16/2024 1:25 AM EDT [facility] Potassium, Plasma 4.0 3.6 - 4.9 mmol/L 11/16/2024 1:25 AM EDT [facility] Chloride, Plasma 107 97 - 107 mmol/L 11/16/2024 1:25 AM EDT [facility] CO2, Plasma 27 22 - 29 mmol/L 11/16/2024 1:25 AM EDT [facility] Anion Gap 11 6 - 16 mmol/L 11/16/2024 1:25 AM EDT [facility] Total Calcium, Plasma 9.4 8.9 - 10.2 mg/dL 11/16/2024 1:25 AM EDT [facility] eGFRcr 91.2 mL/min/1.7 3m*2 11/16/2024 1:25 AM EDT [facility] Comment:Reported eGFRcr in m L/min/1.73m2 is based the CKD-EPI 2020 equation that does not use a race coefficient. Blood Venous blood specimen / Unknown Venipuncture / Unknown 11/16/2024 12:26 AM EDT 11/16/2024 12:37 AM EDT us Krystina Jefferson APRN LAB BLOOD ORDERABLES Fi nal Result [facility] [address] [place] [address] * Critical Care (11/14/2024 11:46 AM EDT) Narrative Kan Lucero MD - 11/14/2024 11:46 AM EDT Kan Lucero MD 11/14/2024 5:16 PM Critical Care Performed by: Krystina Jefferson APRN Authorized by: Krystnia Jefferson APRN Critical care provider statement: Critical [...] rounds with pulmonary critical care physician, Dr. Lucreo and they are in agreement with the plan of care. Pharmacy, respiratory and nursing services were present on rounds. us Krystina Jefferson APRN IN CLINIC/BEDSIDE ORDER CARLOS Final Result * XR Chest 1 View (11/14/2024 2:22 AM EDT) Only the most recent of3 resultswithin the time period is included. Anatomical Region Laterality Modality Chest Digital Radiogra [...] Tracie Moran MD on 11/14/2024 9:16 AM us Carolee Green LEAD PROCESS ENGINEER, DNP IMG XR PROCEDURES Fi nal Result * ECHO, ADULT TRANSTHORACIC COMPLETE (11/13/2024 10:59 [...] Root Diam 37 mm SAMMIE ISCV PA SC(ACCEL) 36.3 mmHg SAMMIE ISCV LVLs ap2 7.3 [...] there is no significant interval change noted. us Lucinda Chapin APRN CV ECHO PROCEDURES Final Result * SC CRITICAL CARE, E/M 30-74 MINUTES (11/13/2024 7:19 [...] CLINIC/BEDSIDE OR DERABLES Final Result * (ABNORMAL) Blood gas panel, arterial (11/13/2024 5:13 AM EDT) Only the most recent of2 resultswithin the time period is included. pH, Arterial 7.27(L) 7.31 - 7.42 LAB HEMATOLOGY METHOD 11/13/2024 5:21 AM EDT [facility] pCO2, Arterial 45 32 - 45 mmHg LAB HEMATOLOGY METHOD 11/13/2024 5:21 AM EDT [facility] pO2, Arterial 95 >80 mmHg LAB HEMATOLOGY METHOD 11/13/2024 5:21 AM EDT [facility] SO2, Measured, Arterial 98 94 - 98 % LAB HEMATOLOGY METHOD 11/13/2024 5:21 AM EDT [facility] Base Excess, Arterial -6.3(L) -2.0 - 3.0 mmol/L LAB HEMATOLOGY METHOD 11/13/2024 5:21 AM EDT [facility] Bicarbonate, Calculated, Arterial 20(L) 22 - 26 mmol/L LAB HEMATOLOGY METHOD 11/13/2024 5:21 AM EDT [facility] Hematocrit, Whole Blood 31.7(L) 40.0 - 51.0 % LAB HEMATOLOGY METHOD 11/13/2024 5:21 AM EDT [facility] Sodium, Whole Blood 135(L) 136 - 145 mmol/L LAB HEMATOLOGY METHOD 11/13/2024 5:21 AM EDT [facility] Potassium, Whole Blood 5.4(H) 3.6 - 4.9 mmol/L LAB HEMATOLOGY METHOD 11/13/2024 5:21 AM EDT [facility] Chloride, Whole Blood 103 97 - 107 mmol/L LAB HEMATOLOGY METHOD 11/13/2024 5:21 AM EDT [facility] Glucose, Whole Blood 163(H) 74 - 99 mg/dL LAB HEMATOLOGY METHOD 11/13/2024 5:21 AM EDT [facility] Ionized Calcium, Whole Blood 4.7 4.6 - 5.1 mg/dL LAB HEMATOLOGY METHOD 11/13/2024 5:21 AM EDT [facility] Lactate, Arterial, Whole Blood 0.7 0.5 - 1.6 mmol/L LAB HEMATOLOGY METHOD 11/13/2024 5:21 AM EDT [facility] Blood Arterial blood specimen / Unknown Arterial Puncture / Unknown 11/13/2024 5:13 AM EDT 11/13/2024 5:19 AM EDT us Leila HARPER LAB BLOOD ORDERABLES Final Result [facility] [address] [place] [address] * Ionized calcium, serum (11/13/2024 1:58 AM EDT) Ionized Calcium, Serum 4.8 4.6 - 5.3 mg/dL LAB HEMATOLOGY METHOD 11/13/2024 2:47 AM EDT [facility] Blood Arterial blood specimen / Unknown Arterial Puncture / Unknown 11/13/2024 1:58 AM EDT 11/13/2024 2:10 AM EDT us Lucinda Chapin APRN LAB BLOOD ORDERABLES Lenka l Result [facility] [address] [place] [address] * (ABNORMAL) Serum Drug Screen (11/13/2024 1:58 AM EDT) 9 Carboxy THC <5 <5 ng/mL 11/16/2024 3:33 PM EDT [facility] Alprazolam <5 <5 ng/mL 11/16/2024 3:33 PM EDT [facility] Amphetamine <10 <10 ng/mL 11/16/2024 3:33 PM EDT [facility] Benzolyecgonine <20 <20 ng/mL 3:33 PM EDT [facility] Buprenorphine <1.0 <1.0 ng/mL 11/16/2024 3:33 PM EDT [facility] Butalbital <50 <50 ng/mL 11/16/2024 3:33 PM EDT [facility] Clonazepam <5 <5 ng/mL 11/16/2024 3:33 PM EDT [facility] Codeine <5 <5 ng/mL 11/16/2024 3:33 PM EDT [facility] Diazepam <5 <5 ng/mL 11/16/2024 3:33 PM EDT [facility] Fentanyl <1 <1 ng/mL 11/16/2024 3:33 PM EDT [facility] Hydrocodone <2 <2 ng/mL 11/16/2024 3:33 PM EDT [facility] Hydromorphone <5 <5 ng/mL 11/16/2024 3:33 PM EDT [facility] Lorazepam <5 <5 ng/mL 11/16/2024 3:33 PM EDT [facility] MDA <10 <10 ng/mL 11/16/2024 3:33 PM EDT [facility] MDMA <10 <10 ng/mL 11/16/2024 3:33 PM EDT [facility] Meperidine <5 <5 ng/mL 11/16/2024 3:33 PM EDT [facility] Methadone <10 <10 ng/mL 11/16/2024 3:33 PM EDT [facility] Methadone Metabolite <10 <10 ng/mL 08/2024 3:33 PM EDT [facility] Methamphetamine <10 <10 ng/mL 3:33 PM EDT [facility] Midazolam <5 <5 ng/mL 11/16/2024 3:33 PM EDT [facility] Morphine <2 <2 ng/mL 11/16/2024 3:33 PM EDT [facility] Norbuprenorphine <5 <5 ng/mL 11/17/19 3:33 PM EDT [facility] Nordiazepam <10 <10 ng/mL 11/16/2024 3:33 PM EDT [facility] Oxazepam <5 <5 ng/mL 11/16/2024 3:33 PM EDT [facility] Oxycodone 6(H) <2 ng/mL 11/16/2024 3:33 PM EDT [facility] Oxymorphone <2 <2 ng/mL 11/16/2024 3:33 PM EDT [facility] Phenobarbital <50 <50 ng/mL 11/16/2024 3:33 PM EDT [facility] Temazepam <5 <5 ng/mL 11/16/2024 3:33 PM EDT [facility] Tramadol <20 <20 ng/mL 11/16/2024 3:33 PM EDT [facility] Blood Arterial blood specimen / Unknown Arterial Puncture / Unknown 11/13/2024 1:58 AM EDT 11/14/2024 8:23 AM EDT Narrative [facility] - 11/16/2024 3:33 PM EDT Test performed by LC-MS/MS at the [facility]. This test was developed and its performance characteristics determined by [facility]. It has not been cleared or approved by the FDA. The laboratory is regulated under CLIA as qualified to perform high-complexity testing. This test is used for clinical purposes. us Lucinda Chapin LEAD PROCESS ENGINEER LAB BLOOD ORDERABLES Lenka simpson Result [facility] [address] [place] [address] * (ABNORMAL) Respiratory Culture and Gram Stain (11/12/2024 11:57 PM EDT) Culture Moderate Growth 8:03 AM EDT [facility] Culture 2+ Mixed upper respiratory tiffanie(A) 11/17/2024 8:03 AM EDT [facility] Comment:The organism value f or this result has been updated. These results have been appended to the previously preliminary verified report. Culture 3+ Streptococcus pneumoniae(A) 11/17/2024 8:03 AM EDT [facility] Comment: CAUTION: If your patient has signs and symptoms suggesting meningitis call [phone] (Micro) for appropriate susceptibility results to Penicillin and Ceftriaxone. Susceptibility results listed here are for Streptococcus pneumoniae non- meningitis treatment only. Break points differ for ASSEMBLY HAND infections. The organism value for this result has been updated. These results have been appended to the previously preliminary verified report. Gram Stain Result Greater than 25 WBC/LPF(A) 11/17/2024 8:03 AM EDT [facility] Gram Stain Result Fewer than 10 Epithelial cells/LPF(A) 11/17/2024 8:03 AM EDT [facility] Gram Stain Result Moderate Gram positive rods(A) 11/17/2024 8:03 AM EDT [facility] Gram Stain Result Moderate Gram positive cocci in pairs(A) 11/17/2024 8:03 AM EDT [facility] Gram Stain Result Few Yeast(A) 11/17 8:03 AM EDT [facility] Sputum Coughed sputum specimen / Unknown [...] ETEST 0.125 ug/ml: Susceptible us Lucinda Chapin APRN LAB MICROBIOLOGY - GENERA L ORDERABLES Final Result [facility] [address] [place] [address] * SC CRITICAL CARE, E/M 30-74 MINUTES (11/12/2024 10:26 PM EDT) Narrative [...] IN CLINIC/BEDSIDE ORDERAB LES Final Result * SC INSERT NON-TUNNEL CV CATH, HC INSERT NON-TUNNEL [...] puncture and infection Alternatives discussed: Delayed treatment [place] protocol: Procedure explained and questions answered to [...] IN CLINIC/BEDSIDE ORDERABLE S Final Result * SC INSERT CATH,ART,PERCUT,SHORTTERM, HC INSERT CATH,ART,PERCUT,SHORTTERM (11/12/2024 9:42 PM EDT) Narrative Lucinda Chapin APRN - 11/12/2024 9:42 PM EDT Lucinda Chapin APRN 11/12/2024 9:43 PM Arterial line Performed by: Lucinda Chapin APRN Authorized by: Lucinda Chapin APRN Consent: Consent obtained: Verbal Consent given by: Guardian, patient and spouse Risks, benefits, and alternatives were discussed: yes Risks discussed: Bleeding, pain, infection, repeat procedure and ischemia [place] protocol: Procedure explained and questions answered to [...] Procedure completion: Tolerated well, no immediate complications us Lucinda Chapin APRN IV THERAPY ORDERABLES Fin al Result * (ABNORMAL) Potassium (11/12/2024 8:29 PM EDT) Potassium, Plasma 5.1(H) 3.6 - 4.9 mmol/L 11/12/2024 9:02 PM EDT [facility] Blood Venous blood specimen / Unknown Venipuncture / Unknown 11/12/2024 8:29 PM EDT 11/12/2024 8:37 PM EDT us Lucinda Chapin APRN LAB BLOOD ORDERABLES Lenka calvin Result [facility] [address] [place] [address] * US Renal Complete (11/12/2024 8:26 PM [...] to 10.2 cm. Urinary bladder: Decompressed with Perry catheter.. Procedure Note Shanna Camargo MD - [...] to 10.2 cm. Urinary bladder: Decompressed with Perry catheter.. IMPRESSION: Limited visualization of the kidneys due to bowel gas. Parenchymal thinning. Bilateral renal cysts. No hydronephrosis. CRITICAL RESULT: No. COMMUNICATION: Per this written report. Drafted by Shanna Camargo MD on 11/12/2024 9:50 PM Final report signed by Shanna Camargo MD on 11/12/2024 9:53 PM Lucinda Chapin APRN IMG US PROCEDURES Final R esult * ECG - RT (11/12/2024 7:56 PM EDT) EKG DIAGNOSIS CLASS Abnormal MUSE ECG Ventricular Rate 63 BPM MUSE ECG Atrial Rate 63 BPM MUSE ECG SC Interval 186 ms MUSE ECG QRSD Interval 152 ms MUSE ECG QT Interval 424 ms MUSE ECG QTC Interval 433 ms MUSE ECG P [place] 54 degrees MUSE ECG R [place] -7 degrees MUSE ECG T Wave [place] 32 degrees MUSE ECG Diagnosis Normal sinus rhythm MUSE ECG Diagnosis Right bundle branch block MUSE ECG Diagnosis Abnormal ECG MUSE ECG Diagnosis MUSE ECG Diagnosis Confirmed by Umer Harmon ([id number]) on 11/13/2024 2:00:05 PM MUSE ECG 11/12/2024 7:56 PM EDT 11/13/2024 2:00 PM EDT Lucinda Chapin APRN ECG ORDERABLES Final Res ult MUSE ECG * BETA HYDROXYBUTYRIC ACID (11/12/2024 7:03 PM EDT) Pathologist [facility] Beta-Hydroxybut yric Acid, Plasma 0.16 <=0.27 mmol/L 11/12/2024 7:39 PM EDT [facility] Blood Venous blood specimen / Unknown Venipuncture / Unknown 11/12/2024 7:03 PM EDT 11/12/2024 7:06 PM EDT Lucinda Chapin APRN LAB BLOOD ORDERABLES Lenka l Result [facility] [address] [facility] [place] [address] * Streptococcus pneumoniae and Legionella Urinary Antigen (11/12/2024 6:57 PM EDT) Pathologist [facility] Legionella pneumophila serogroup 1 Antigen Result (Urine) Negative Negative 11/12/2024 9:52 PM EDT [facility] Streptococcus pneumoniae Antigen Result (Urine) Negative Negative 11/12/2024 9:52 PM EDT [facility] Urine Urine specimen obtained by clean catch procedure / Unknown Non-blood Collection / Unknown 11/12/2024 6:57 PM EDT 11/12/2024 7:09 PM EDT Lucinda Chapin APRN LAB MICROBIOLOGY - GENERA L ORDERABLES Final Result Performing Organization Address [facility] Co de Phone Number [facility] [address] [place] [address] * Urinalysis Microscopic Examination (11/12/2024 6:57 PM EDT) Urine Urine specimen obtained by clean catch procedure / Unknown Non-blood Collection / Unknown 11/12/2024 6:57 PM EDT 11/12/2024 7:06 PM EDT Lucinda Chapin APRN LAB URINE ORDERABLES Lenka l Result Performing Organization Address [facility] Co de Phone Number [facility] [address] [place] [address] * Sodium, Random, Urine (11/12/2024 6:57 PM EDT) Sodium, Urine 36 mmol/L 11/12/2024 7:46 PM EDT [facility] Urine Urine specimen obtained by clean catch procedure / Unknown Non-blood Collection / Unknown 11/12/2024 6:57 PM EDT 11/12/2024 7:06 PM EDT us Lucinda Chapin APRN LAB URINE ORDERABLES Lenka l Result Performing Organization Address City/[facility] Co de Phone Number [facility] [address] [place] [address] * Creatinine, Random, Urine (11/12/2024 6:57 PM EDT) Creatinine, Urine 129 mg/dL 11/12/2024 7:37 PM EDT [facility] Urine Urine specimen obtained by clean catch procedure / Unknown Non-blood Collection / Unknown 11/12/2024 6:57 PM EDT 11/12/2024 7:06 PM EDT us Lucinda Chapin APRN LAB URINE ORDERABLES Lenka simpson Result [facility] [address] [place] [address] * (ABNORMAL) Comprehensive Urine Drug Screening, Qualitative Assay, >= 27 Drug Classes (56:57 PM EDT) Acetaminophen Positive(A) Negative 11/24/2024 3:23 PM EDT [facility] Alprazolam Negative Negative 11/24/2024 3:23 PM EDT [facility] Amantadine Negative Negative 11/24/2024 3:23 PM EDT [facility] Amitriptyline Negative Negative 11/24/2024 3:23 PM EDT [facility] Amphetamine Negative Negative 11/24/2024 3:23 PM EDT [facility] Atenolol Negative Negative 11/24/2024 3:23 PM EDT [facility] Benzoylecgonine Negative Negative 3:23 PM EDT [facility] Bisoprolol Negative Negative 11/24/2024 3:23 PM EDT [facility] Bupropion Negative Negative 11/24/2024 3:23 PM EDT [facility] Butalbital Negative Negative 11/24/2024 3:23 PM EDT [facility] Carbamazepine Negative Negative 11/24/2024 3:23 PM EDT [facility] Carisoprodol Negative Negative 11/24/2024 3:23 PM EDT [facility] Chlorpheniramine Negative Negative 11/25/19 3:23 PM EDT [facility] Citalopram Negative Negative 11/24/2024 3:23 PM EDT [facility] Clindamycin Negative Negative 11/24/2024 3:23 PM EDT [facility] Clonidine Negative Negative 11/24/2024 3:23 PM EDT [facility] Clopidogrel / Ticlopidine Negative Negative 11/24/2024 3:23 PM EDT [facility] Cocaethylene Negative Negative 11/24/2024 3:23 PM EDT [facility] Cocaine Negative Negative 11/24/2024 3:23 PM EDT [facility] Codeine Negative Negative 11/24/2024 3:23 PM EDT [facility] Cyclobenzaprine Negative Negative 3:23 PM EDT [facility] Desvenlafaxine Negative Negative 11/24/2024 3:23 PM EDT [facility] Dextromethorphan Negative Negative 11/25/19 3:23 PM EDT [facility] Diazepam Negative Negative 11/24/2024 3:23 PM EDT [facility] Diltiazem Negative Negative 11/24/2024 3:23 PM EDT [facility] Diphenhydramine Negative Negative 3:23 PM EDT [facility] Doxepine Negative Negative 11/24/2024 3:23 PM EDT [facility] Doxylamine Negative Negative 11/24/2024 3:23 PM EDT [facility] EDDP-Methadone metabolite Negative Negative 11/24/2024 3:23 PM EDT [facility] Fentanyl Negative Negative 11/24/2024 3:23 PM EDT [facility] Fluconazole Negative Negative 11/24/2024 3:23 PM EDT [facility] Fluoxetine Negative Negative 11/24/2024 3:23 PM EDT [facility] Guaifenesin Negative Negative 11/24/2024 3:23 PM EDT [facility] Haloperidol Negative Negative 11/24/2024 3:23 PM EDT [facility] Heroin/6-RADHA Negative Negative 11/24/2024 3:23 PM EDT [facility] Hydrocodone Negative Negative 11/24/2024 3:23 PM EDT [facility] Hydroxyzine / Cetirizine metabolite Negative Negative 11/24/2024 3:23 PM EDT [facility] Ibuprofen Negative Negative 11/24/2024 3:23 PM EDT [facility] Imipramine Negative Negative 11/24/2024 3:23 PM EDT [facility] Ketamine Negative Negative 11/24/2024 3:23 PM EDT [facility] Labetolol Negative Negative 11/24/2024 3:23 PM EDT [facility] Lamotrigine Negative Negative 11/24/2024 3:23 PM EDT [facility] Levetiracetam Negative Negative 11/24/2024 3:23 PM EDT [facility] Lidocaine Negative Negative 11/24/2024 3:23 PM EDT [facility] MDA Negative Negative 11/24/2024 3:23 PM EDT [facility] MDMA Negative Negative 11/24/2024 3:23 PM EDT [facility] Memantine Negative Negative 11/24/2024 3:23 PM EDT [facility] Meperidine Negative Negative 11/24/2024 3:23 PM EDT [facility] Meprobamate Negative Negative 11/24/2024 3:23 PM EDT [facility] Metaxalone Negative Negative 11/24/2024 3:23 PM EDT [facility] Methamphetamine Negative Negative 3:23 PM EDT [facility] Methocarbamol Negative Negative 11/24/2024 3:23 PM EDT [facility] Methylecgonine Negative Negative 11/24/2024 3:23 PM EDT [facility] Metoclopramide Negative Negative 11/24/2024 3:23 PM EDT [facility] Metoprolol Negative Negative 11/24/2024 3:23 PM EDT [facility] Metronidazole Negative Negative 11/24/2024 3:23 PM EDT [facility] Midazolam Negative Negative 11/24/2024 3:23 PM EDT [facility] Midazolam Metabolite Negative Negative 11/24/2024 3:23 PM EDT [facility] Mirtazapine Negative Negative 11/24/2024 3:23 PM EDT [facility] Misc Test Result Positive(A) Negative 025 3:23 PM EDT [facility] Comment:Oxymorphone: positiv e Naproxen Negative Negative 11/24/2024 3:23 PM EDT [facility] Nefazodone Negative Negative 11/24/2024 3:23 PM EDT [facility] Norfentanyl Negative Negative 11/24/2024 3:23 PM EDT [facility] Nortriptyline Negative Negative 11/24/2024 3:23 PM EDT [facility] Ordanstron Negative Negative 11/24/2024 3:23 PM EDT [facility] Oxcarbazepine Negative Negative 11/24/2024 3:23 PM EDT [facility] Oxycodone Negative Negative 11/24/2024 3:23 PM EDT [facility] Paroxethine Negative Negative 11/24/2024 3:23 PM EDT [facility] Phenobarbital Negative Negative 11/24/2024 3:23 PM EDT [facility] Phentermine Negative Negative 11/24/2024 3:23 PM EDT [facility] Phenytoin Negative Negative 11/24/2024 3:23 PM EDT [facility] Primidone Negative Negative 11/24/2024 3:23 PM EDT [facility] Promethazine Negative Negative 11/24/2024 3:23 PM EDT [facility] Propofol Negative Negative 11/24/2024 3:23 PM EDT [facility] Propranolol Negative Negative 11/24/2024 3:23 PM EDT [facility] Quetiapine Negative Negative 11/24/2024 3:23 PM EDT [facility] Quinine Negative Negative 11/24/2024 3:23 PM EDT [facility] Rantidine Negative Negative 11/24/2024 3:23 PM EDT [facility] Sertraline Negative Negative 11/24/2024 3:23 PM EDT [facility] Spironolactone Negative Negative 11/24/2024 3:23 PM EDT [facility] Tizanidine Negative Negative 11/24/2024 3:23 PM EDT [facility] Topiramate Negative Negative 11/24/2024 3:23 PM EDT [facility] Tramadol Negative Negative 11/24/2024 3:23 PM EDT [facility] Trazadone/ Trazadone metabolite Negative Negative 11/24/2024 3:23 PM EDT [facility] Trimethoprim Negative Negative 11/24/2024 3:23 PM EDT [facility] Valproic Acid Negative Negative 11/24/2024 3:23 PM EDT [facility] Venlafaxine Negative Negative 11/24/2024 3:23 PM EDT [facility] Verapamil Negative Negative 11/24/2024 3:23 PM EDT [facility] Zolpidem Negative Negative 11/24/2024 3:23 PM EDT [facility] Xylazine Negative Negative 11/24/2024 3:23 PM EDT [facility] Urine Urine specimen obtained by clean catch procedure / Unknown Non-blood Collection / Unknown 11/12/2024 6:57 PM EDT 11/12/2024 7:06 PM EDT us Lucinda Chapin APRN LAB URINE ORDERABLES Lenka l Result [facility] [address] [place] [address] * (ABNORMAL) Urinalysis with reflex microscopic (Culture NOT Included) (11/12/2024 6:57 PM EDT) Color, Urine Yellow LAB URINALYSIS - AUTOMATED METHOD 11/12/2024 7:24 PM EDT [facility] Clarity, Urine Clear LAB URINALYSIS - AUTOMATED METHOD 11/12/2024 7:24 PM EDT [facility] Spec [place], Urine 1.014 1.005 - 1.030 LAB URINALYSIS - AUTOMATED METHOD 11/12/2024 7:24 PM EDT [facility] pH, Urine 5.5 5.0 - 8.0 LAB URINALYSIS - AUTOMATED METHOD 11/12/2024 7:24 PM EDT [facility] Protein, Urine 30(A) Negative mg/dL LAB URINALYSIS - AUTOMATED METHOD 11/12/2024 7:24 PM EDT [facility] Glucose, Urine Negative Negative mg/dL LAB URINALYSIS - AUTOMATED METHOD 11/12/2024 7:24 PM EDT [facility] Ketones, Urine Negative Negative mg/dL LAB URINALYSIS - AUTOMATED METHOD 11/12/2024 7:24 PM EDT [facility] Blood, Urine Moderate(A) Negative LAB URINALYSIS - AUTOMATED METHOD 11/12/2024 7:24 PM EDT [facility] Bilirubin, Urine Negative Negative LAB URINALYSIS - AUTOMATED METHOD 11/12/2024 7:24 PM EDT [facility] Urobilinogen, Urine 0.2 0.2 to 1.0 mg/dL LAB URINALYSIS - AUTOMATED METHOD 11/12/2024 7:24 PM EDT [facility] Leukocytes, Urine Negative Negative LAB URINALYSIS - AUTOMATED METHOD 11/12/2024 7:24 PM EDT [facility] Nitrite, Urine Negative Negative LAB URINALYSIS - AUTOMATED METHOD 11/12/2024 7:24 PM EDT [facility] RBC, Urine 1 0 to 3 /HPF LAB URINALYSIS - AUTOMATED METHOD 11/12/2024 7:24 PM EDT [facility] WBC, Urine 0 - 5 0 to 5 /HPF LAB URINALYSIS - AUTOMATED METHOD 11/12/2024 7:24 PM EDT [facility] Squamous Epithelial Cells 3 - 5 0 to 5 /HPF LAB URINALYSIS - AUTOMATED METHOD 11/12/2024 7:24 PM EDT [facility] Hyaline Casts 11 - 20(A) 0 to 5 /LPF LAB URINALYSIS - AUTOMATED METHOD 11/12/2024 7:24 PM EDT [facility] Bacteria, Urine Negative Negative LAB URINALYSIS - AUTOMATED METHOD 11/12/2024 7:24 PM EDT [facility] Calcium Oxalate Crystals Present Absent LAB URINALYSIS - AUTOMATED METHOD 11/12/2024 7:24 PM EDT [facility] Urine Urine specimen obtained by clean catch procedure / Unknown Non-blood Collection / Unknown 11/12/2024 6:57 PM EDT 11/12/2024 7:06 PM EDT us Lucinda Chapin APRN LAB URINE ORDERABLES Lenka calvin Result [facility] [address] [place] [address] * Rosie auris Surveillance by PCR (11/12/2024 6:51 PM EDT) Rosie auris PCR Result Not Detected Not Detected 11/14/2024 6:51 AM EDT [facility] Swab (Axilla and Groin) Non-blood Collection / Unknown 11/12/2024 6:51 PM EDT 11/12/2024 7:13 PM EDT Narrative [facility] - 11/14/2024 6:51 AM EDT This PCR assay was developed and its performance characteristics determined by [facility] as appropriate for clinical purposes. This assay has not been cleared or approved by the FDA, but is performed in a CLIA regulated laboratory that is qualified to perform high-complexity testing. Lucinda Chapin LEAD PROCESS ENGINEER LAB MICROBIOLOGY - [facility] L ORDERABLES Final Result [facility] [address] [place] [address] * SARS CoV-2/COVID-19 by PCR (11/12/2024 6:51 PM EDT) SARS CoV-2/COVID-1 9 RNA PCR Result Not Detected Not Detected 11/13/2024 1:58 PM EDT [facility] Swab Nasopharyngeal structure / Unknown Non-blood Collection / Unknown 11/12/2024 6:51 PM EDT 11/12/2024 7:14 PM EDT Narrative [facility] - 11/13/2024 1:58 PM EDT This [...] testing. This test was performed using the [employer] SARS CoV-2 assay, a PCR-based method. Negative [...] L ORDERABLES Final Result Performing Organization Address City/[facility]/ZIP Co de Phone Number [facility] [address] [place] [address] * Multi Drug Resistance Test (11/12/2024 6:51 PM EDT) [facility] Culture No growth at day 1 11/13/2024 3:47 PM EDT [facility] Swab (Nares and Kati Rectal) Non-blood Collection / Unknown 11/12/2024 6:51 PM EDT 11/12/2024 7:13 PM EDT Lucinda Chapin APRN LAB MICROBIOLOGY - GENERA L ORDERABLES Final Result Performing Organization Address [facility] [place] [place] [address] * Methicillin Resistant Staphylococcus aureus (MRSA) by PCR (11/12/2024 6:51 PM EDT) [facility] Methicillin Resistant Staphylococcus aureus (MRSA) by PCR Not Detected Not Detected 11/12/2024 8:54 PM EDT [facility] Swab Both anterior nares / Unknown Non-blood Collection / Unknown 11/12/2024 6:51 PM EDT 11/12/2024 7:13 PM EDT Narrative [facility] - 11/12/2024 8:54 PM EDT This [...] L ORDERABLES Final Result Performing Organization Address City/[facility]/ZIP Co de Phone Number [facility] [address] [place] [address] * (ABNORMAL) Procalcitonin, Plasma (11/12/2024 6:48 PM EDT) Procalcitonin, Plasma 5.04(H) <0.09 ng/mL 11/12/2024 7:42 PM EDT [facility] Blood Venous blood specimen / Unknown Venipuncture / Unknown 11/12/2024 6:48 PM EDT 11/12/2024 7:06 PM EDT Narrative [facility] - 11/12/2024 7:42 PM EDT Procalcitonin [...] predict 28 day mortality risk. Please consult www.moafsh-cki-grivygsnok.proteonomix for more information. Test performed at [facility]. us Lucinda Chapin APRN LAB BLOOD ORDERABLES Lenka l Result Performing Organization Address City/State/[facility] Co de Phone Number [facility] [address] [place] [address] * (ABNORMAL) Acetaminophen, Quantitative, Plasma (11/12/2024 6:48 PM EDT) Acetaminophen <5.0(L) 10.0 - 30.0 g/mL 11/12/2024 8:15 PM EDT [facility] Blood Venous blood specimen / Unknown Venipuncture / Unknown 11/12/2024 6:48 PM EDT 11/12/2024 7:07 PM EDT [facility] - 11/12/2024 8:15 PM EDT Therapeutic: 10 to 30 ug/mL Supratherapeutic: >35 ug/mL Lucinda Chapin APRN LAB BLOOD ORDERABLES Lenka l Result [facility] [address] [place] [address] * N-Terminal ProBNP, Plasma (11/12/2024 6:48 PM EDT) N-Terminal, PROBNP, Plasma 519 0 - 899 pg/mL 11/12/2024 7:38 PM EDT [facility] Blood Venous blood specimen / Unknown Venipuncture / Unknown 11/12/2024 6:48 PM EDT 11/12/2024 7:07 PM EDT us Lucinda Chapin LEAD PROCESS ENGINEER LAB BLOOD ORDERABLES Lenka l Result Performing Organization Address [facility]/ZIP Co de Phone Number [facility] [address] [place] [address] * Acute Hepatitis Panel (11/12/2024 6:48 PM EDT) Pathologist [facility] Hepatitis B Surf Antigen Negative Negative 11/12/2024 8:13 PM EDT [facility] Hepatitis C Antibody Negative Negative 11/12/2024 8:13 PM EDT [facility] Hepatitis A Antibody IgM Negative Negative 11/12/2024 8:13 PM EDT [facility] Hepatitis B Core Antibody IgM Negative Negative 11/12/2024 8:13 PM EDT [facility] Blood Venous blood specimen / Unknown Venipuncture / Unknown 11/12/2024 6:48 PM EDT 11/12/2024 7:06 PM EDT us Lucinda Chapin LEAD PROCESS ENGINEER LAB BLOOD ORDERABLES Lenka l Result Performing Organization Address City/[facility]/ZIP Co de Phone Number [facility] [address] [place] [address] * Blood Culture (Aerobic/Anaerobet Set) (11/12/2024 6:48 PM EDT) Pathologist [facility] Culture No growth at day 5 ZHEN 11/17/2024 8:02 PM EDT [facility] Blood Structure of part of right upper limb / Unknown Venipuncture / Unknown 11/12/2024 6:48 PM EDT 11/12/2024 7:11 PM EDT Lucinda Chapin APRN LAB MICROBIOLOGY - GENERA L ORDERABLES Final Result Performing Organization Address [facility] Co de Phone Number [facility] [address] [place] [address] * Prothrombin Time/INR (11/12/2024 6:48 PM EDT) Prothrombin Time 13.7 12.0 - 14.3 sec LAB COAGULATION METHOD 11/12/2024 7:45 PM EDT [facility] INR 1.0 0.9 - 1.1 LAB COAGULATION METHOD 11/12/2024 7:45 PM EDT [facility] Blood Venous blood specimen / Unknown Venipuncture / Unknown 11/12/2024 6:48 PM EDT 11/12/2024 7:06 PM EDT Narrative [facility] - 11/12/2024 7:45 PM EDT OPTIMAL INR RANGES FOR PATIENT ON ORAL ANTICOAGULANT THERAPY Prevention of venous thromboembolism INR 2.0 to 3.0 In patients with heart disease: Atrial fibrillation INR 2.0 to 3.0 Valvular heart disease INR 2.0 to 3.0 Tissue heart valves INR 2.0 to 3.0 Mechanical prosthetic valves INR 2.5 to 3.5 Prevention of recurrent [place] INR 2.5 to 3.5 Lucinda Chapin APRN LAB BLOOD ORDERABLES Lenka l Result Performing Organization Address City/[facility]/ZIP Co de Phone Number [facility] [address] [place] [address] * Type and Screen (11/12/2024 6:48 PM EDT) ABO/Rh O Positive 11/12/2024 6:24 PM EDT [facility] Antibody Screen Negative 11/12/2024 6:24 PM EDT [facility] Specimen Expiration 11/15/2024 23:59 11/12/2024 6:24 PM EDT [facility] Blood Venous blood specimen / Unknown Venipuncture / Unknown 11/12/2024 6:48 PM EDT 11/12/2024 6:59 PM EDT Lucinda Chapin APRN LAB BLOOD BANK TEST ORDER CARLOS Final Result Performing Organization Address City/[facility]/ZIP Co de Phone Number BLOOD BANK [address] * (ABNORMAL) Troponin T, High Sensitivity, Cardiac Risk Assessment (11/12/2024 6:48 PM EDT) Troponin T, High Sensitivity, 0 Hour 30(H) <19 ng/L 11/12/2024 7:42 PM EDT [facility] Blood Venous blood specimen / Unknown Venipuncture / Unknown 11/12/2024 6:48 PM EDT 11/12/2024 7:06 PM EDT Lucinda Chapin APRN LAB BLOOD ORDERABLES Lenka l Result Performing Organization Address City/[facility]/ZIP Co de Phone Number [facility] [address] [place] [address] * Thyroid Stimulating Hormone, Plasma (11/12/2024 6:48 PM EDT) Thyroid Stimulating Hormone, Plasma 2.12 0.40 - 4.20 uIU/mL 11/12/2024 7:42 PM EDT [facility] Blood Venous blood specimen / Unknown Venipuncture / Unknown 11/12/2024 6:48 PM EDT 11/12/2024 7:06 PM EDT Lucinda Chapin APRN LAB BLOOD ORDERABLES Lenka l Result [facility] [address] [place] [address] * Free T4, Plasma (11/12/2024 6:48 PM EDT) Free T4, Plasma 1.1 0.8 - 1.7 ng/dL 11/12/2024 7:42 PM EDT [facility] Blood Venous blood specimen / Unknown Venipuncture / Unknown 11/12/2024 6:48 PM EDT 11/12/2024 7:06 PM EDT Lucinda Foster Dari LEAD PROCESS ENGINEER LAB BLOOD ORDERABLES Lenka l Result Performing Organization Address [facility]/ZIP Co de Phone Number [facility] [address] [place] [address] * (ABNORMAL) Hemoglobin A1c (11/12/2024 6:48 PM EDT) Hemoglobin A1c 5.8(H) <5.7 % 11/12/2024 8:15 PM EDT [facility] Blood Venous blood specimen / Unknown Venipuncture / Unknown 11/12/2024 6:48 PM EDT 11/12/2024 7:04 PM EDT Narrative [facility] - 11/12/2024 8:15 PM EDT HA1C Interpretive Data: Diagnosis of Diabetes: Diabetic > or = 6.5% Pre-diabetic 5.7 to 6.4% Non-diabetic < or = 5.6% Glycemic Targets for Type I and Type II Diabetics: Non- Adults <7.0% Adults <6.0% Children and Adolescents <7.5% Source: [place] Diabetes Association. Standards of medical care in diabetes,2017. Diabetes Care.2017:40 (suppl 1):S1-S135. Lucinda Chapin APRN LAB BLOOD ORDERABLES Lenka l Result Performing Organization Address [facility] Co de Phone Number [facility] [address] [place] [address] * Cortisol, serum (11/12/2024 6:48 PM EDT) Cortisol 15.00 Before 10am: 3.7 - 19.4. After 5pm: 2.9 - 17.3 ug/dL 11/12/2024 8:09 PM EDT [facility] Comment:Testing performed on [place] Final Installer Inspector, standardized against [facility] Reference Standard concentration values assigned by LC-MS/MS and verified by BCR 192 and BCR 193 certified reference materials. Blood Venous blood specimen / Unknown Venipuncture / Unknown 11/12/2024 6:48 PM EDT 11/12/2024 7:07 PM EDT us Lucinda Chapin APRN LAB REF LAB BLOOD AND FLU ID ORD Final Result Performing Organization Address [facility]/ZIP Co de Phone Number [facility] [address] [place] [address] * Salicylate, Quantitative, Plasma (11/12/2024 6:48 PM EDT) Salicylate, Quantitative, Plasma <1.0 <25 mg/dL mg/dL 11/12/2024 8:00 PM EDT [facility] Blood Venous blood specimen / Unknown Venipuncture / Unknown 11/12/2024 6:48 PM EDT 11/12/2024 7:06 PM EDT Narrative [facility] - 11/12/2024 8:00 PM EDT Therapeutic Range: <25 mg/dL Supratherapeutic Level: >30 mg/dL us Lucinda Chapin APRN LAB BLOOD ORDERABLES Lenka l Result Performing Organization Address [facility]/ZIP Co de Phone Number [facility] [address] [place] [address] * (ABNORMAL) Comprehensive Metabolic Panel, Plasma (11/12/2024 6:48 PM EDT) Glucose, Plasma 116(H) 74 - 99 mg/dL 11/12/2024 7:38 PM EDT [facility] BUN, Plasma 68(H) 8 - 23 mg/dL 11/12/2024 7:38 PM EDT [facility] Creatinine, Plasma 7.27(H) 0.70 - 1.20 mg/dL 11/12/2024 7:38 PM EDT [facility] BUN/Creatinine Ratio 9 11/12/2024 7:38 PM EDT [facility] Sodium, Plasma 134(L) 136 - 145 mmol/L 11/12/2024 7:38 PM EDT [facility] Potassium, Plasma 6.1(H) 3.6 - 4.9 mmol/L 11/12/2024 7:38 PM EDT [facility] Chloride, Plasma 99 97 - 107 mmol/L 11/12/2024 7:38 PM EDT [facility] CO2, Plasma 19(L) 22 - 29 mmol/L 11/12/2024 7:38 PM EDT [facility] Anion Gap 16 6 - 16 mmol/L 11/12/2024 7:38 PM EDT [facility] Total Calcium, Plasma 8.4(L) 8.9 - 10.2 mg/dL 11/12/2024 7:38 PM EDT [facility] Total Protein 6.3 6.3 - 7.9 g/dL 11/12/2024 7:38 PM EDT [facility] Albumin, Plasma 3.7 3.5 - 5.2 g/dL 11/12/2024 7:38 PM EDT [facility] AST, Plasma 23 10 - 50 U/L 11/12/2024 7:38 PM EDT [facility] ALT, Plasma 12 10 - 50 U/L 11/12/2024 7:38 PM EDT [facility] Alkaline Phosphatase, Plasma 84 40 - 115 U/L 11/12/2024 7:38 PM EDT [facility] Total Bilirubin, Plasma 0.6 0.2 - 1.1 mg/dL 11/12/2024 7:38 PM EDT [facility] eGFRcr 7.6 mL/min/1.7 3m*2 11/12/2024 7:38 PM EDT [facility] Comment:Reported eGFRcr in m L/min/1.73m2 is based the CKD-EPI 2020 equation that does not use a race coefficient. Blood Venous blood specimen / Unknown Venipuncture / Unknown 11/12/2024 6:48 PM EDT 11/12/2024 7:07 PM EDT us Lucinda Chapin APRN LAB BLOOD ORDERABLES Lenka l Result [facility] [address] [place] [address] * (ABNORMAL) POCT venous blood gas gem (11/12/2024 6:41 PM EDT) pH, Venous 7.16(LL) 7.32 - 7.43 11/13/2024 6:05 AM EDT [facility] pCO2, Venous 57(H) 40 - 55 mm Hg 11/13/2024 6:05 AM EDT [facility] pO2, Venous <30 25 - 40 mm Hg 11/13/2024 6:05 AM EDT [facility] SO2, Venous 29(L) 65 - 80 % 11/13/2024 6:05 AM EDT [facility] FIO2 60.0 % 11/13/2024 6:05 AM EDT [facility] Base Excess/Deficit, Venous -8.5(L) -2 - 3 mmol/L 11/13/2024 6:05 AM EDT [facility] HCO3, Venous 20.3(L) 22 - 26 mmol/L 11/13/2024 6:05 AM EDT [facility] Hemoglobin, Venous 10.6(L) 13.7 - 17.5 g/dL 11/13/2024 6:05 AM EDT [facility] Hematocrit, Venous 32.0(L) 40.0 - 51.0 % 11/13/2024 6:05 AM EDT [facility] Sodium, Venous 131(L) 136 - 145 mmol/L 11/13/2024 6:05 AM EDT [facility] Potassium, Venous 5.9(H) 3.6 - 4.9 mmol/L 11/13/2024 6:05 AM EDT [facility] Comment:Hemolyzed, result ma y be falsely increased. POCT Chloride, Venous 101 97 - 107 mmol/L 11/13/2024 6:05 AM EDT [facility] Glucose, Venous 114(H) 74 - 99 mg/dL 11/13/2024 6:05 AM EDT [facility] Ionized Calcium, Venous 4.5(L) 4.6 - 5.1 mg/dL 11/13/2024 6:05 AM EDT [facility] Lactate, Venous 1.2 0.5 - 2.2 mmol/L 11/13/2024 6:05 AM EDT [facility] Body Temperature 37.0 Celsius 11/13/2024 6:05 AM EDT [facility] pH, Temp Corrected, Venous 7.16(LL) 7.32 - 7.43 11/13/2024 6:05 AM EDT [facility] pCO2, Temp Corrected, Venous 57(H) 40 - 55 mm Hg 11/13/2024 6:05 AM EDT [facility] Valver ID Leila Persaud 11/13/2024 6:05 AM EDT [facility] Acknowledged, Notified By RN 11/13/2024 6:05 AM EDT [facility] Critical Notify Time 1841 11/13/2024 6:05 AM EDT [facility] Critical Readback Y 11/13/2024 6:05 AM EDT [facility] Blood, Venous Whole blood specimen / Unknown 11/12/2024 6:41 PM EDT 11/13/2024 6:05 AM EDT Kan Lucero MD LAB POINT OF CARE TE ST DOCKED DEVICE UNSOLICITED RESULTS Final Result Performing Organization Address City/State/[facility] Co de Phone Number [facility] [address] [place] [address] * CT OUTSIDE IMAGES (11/12/2024 1:22 PM EDT) Only the most recent of6 resultswithin the time period is included. Anatomical Region Laterality Modality Computed Tomogra phy 11/12/2024 1:22 PM EDT Noni Hernandez DO IMG CT PROCEDURES Final Result from Last 3 Months Insurance [employer] MEDICARE Advance Directives * Full Code (Latest Code Status on File) Date Activated Date Inactivated Comments 11/15/2024 6:30 PM 11/18/2024 5:29 PM Question Answer Comments I have reviewed the capacity from the link above and, if needed, have updated to appropriate status: Yes * Full Code Date Activated Date Inactivated Comments 07/15/2023 5:15 PM 07/20/2023 6:29 PM Question Answer Comments Patient has decision-making capacity? Yes * Full Code Date Activated Date Inactivated Comments 07/30/2022 11:21 PM 08/08/2022 3:12 PM Question Answer Comments Patient has decision-making capacity? Yes Healthcare Agents on File Name Relationship Healthcare Agent Relationshi p Communication Daren Atkinson Son Next of Kin Care Teams Corn Detasseler Relationship Specialty Start Date End Date Yovany Walsh MD [address] [place] [address] PCP - General 10/13/24 Carloz Day MD [address] [place] [id number] Surgeon Otolaryngology 02/17/21 Willie Sargent MD [address] [place] [id number] Surgeon Otolaryngology 08/13/21
--- OUTSIDE RECORDS SUMMARY | 2025-01-02 14:05 | XMS_ITS | Encounter Summary ---
Author Organization Healthcare Address [address] [place] [address] Care Team Providers Care Mushroom Packer Name Role Phone Carloz Day MD Unavailable [phone] Willie Sargent MD Unavailable Yovany Walsh MD Primary Care Provider [phone] Encounter Details Date Type Department Care Team (Late st Contact Info) Description 11/12/2024 Orders Only External Location [address] [place] [address] Noni Hernandez, DO [address] [place] [address] Social History Tobacco Use Types [...] answer 11/14/2024 How often do you attend [facility] or gnosticist services? Patient unable to answer 11/14/2024 Do you belong to any clubs o r organizations such as yazidism groups, unions, fraternal or athletic groups, or [...] Recorded Patient Health Questionnaire-2 Score 0 02/01/2023 [facility] - Occupational Stress Questionnaire Answer Date Recorded [...] place to sleep or slept in a alf (including now)? No 07/19/2023 Housing Stability Vital [...] documented as of this encounter Care Teams Mushroom Packer Relationship Specialty Start Date End Date Yovany Waslh MD [address] [place] [address] PCP - General 10/13/24 Carloz Day MD [address] [place] [address] Surgeon Otolaryngology 02/17/21 Willie Sargent MD [address] [facility] [address] [place] [address] Surgeon Otolaryngology 08/13/21 documented as of this encounter
--- OUTSIDE RECORDS SUMMARY | 2025-01-02 14:05 | XMS_ITS | Encounter Summary ---
Author Organization [facility] Address [address] [place] [address] Care Team Providers Care Adjunct Political Science Instructor Name Role Phone Carloz Day MD Unavailable [phone] Willie Sargent MD Unavailable Yovany Walsh MD Primary Care Provider [phone] Encounter Details Date Type Department Care Team (Latest Contact Info) Description 11/13/2024 Travel Social History Tobacco Use Types Packs/Day [...] often do you attend chur ch or quaker services? Patient unable to answer 11/14/2024 Do you belong to any clubs o r organizations such as alevism groups, unions, fraternal or athletic groups, or [...] Recorded Patient Health Questionnaire-2 Score 0 02/01/2023 [facility] - Occupational Stress [...] place to sleep or slept in a senior care (including now)? No 07/19/2023 Housing Stability Vital [...] Date of Assessment Author No Risk Indicated 11/13/2024 8:00 AM EDT Rosalia Fletcher RN * Question Answer Date of Assessment Author 1. Wish to be (Past 1 Month) No 11/13/2024 8:00 AM Rosalia Mckenna RN 2. Non-Specific Active Suici ladan Thoughts (Past 1 Month) No 11/13/2024 8:00 AM EDT Ruben Beck RN 6. Suicidal Behavior (Lifetime) No 8:00 AM Rosalia Mckenna, RN documented as of this encounter Plan [...] documented as of this encounter Care Teams Adjunct Political Science Instructor Relationship Specialty Start Date End Date Yovany Walsh MD On license of [facility] [facility] [address] [place] [address] PCP - General 10/13/24 Carloz Day MD [address] [place] [id number] Surgeon Otolaryngology 02/17/21 Willie Sargent MD [address] [place] [address] Surgeon Otolaryngology 08/13/21 documented as of this encounter
--- OUTSIDE RECORDS SUMMARY | 2025-01-02 14:05 | XMS_ITS | Encounter Summary ---
Author Organization Healthcare Address [address] [place] [address] Care Team Providers Care Pipe Stress Engineer Name Role Phone Carloz Day MD Unavailable [phone] Willie Sargent MD Unavailable Yovany Walsh MD Primary Care Provider [phone] Encounter Details Date Type Department Care Team (Late st Contact Info) Description 11/12/2024 Orders Only External Location [address] [place] [address] Noni Hernandez, DO [address] [place] [address] Social History Tobacco Use Types [...] answer 11/14/2024 How often do you attend [facility] or voodoo services? Patient unable to answer 11/14/2024 Do you belong to any clubs o r organizations such as episcopalian groups, unions, fraternal or athletic groups, or [...] Recorded Patient Health Questionnaire-2 Score 0 02/01/2023 [facility] - Occupational Stress Questionnaire Answer Date [...] unable to answer 11/14/2024 3:00 PM Marie aGrdner RN Q2: How many drinks containing alcohol [...] Associated Diagnosis Comments CT OUTSIDE IMAGES 11/12/2024 12:44 PM EDT documented in this encounter Results * CT OUTSIDE IMAGES (11/12/2024 12:44 PM EDT) Anatomical Region Laterality Modality Computed Tomogra phy 11/12/2024 12:4 4 PM EDT us Noni Hernandze DO IMG CT PROCEDURES Final Result documented [...] documented as of this encounter Care Teams Pipe Stress Engineer Relationship Specialty Start Date End Date Yovany Walsh MD [address] [place] [address] [address] [place] [address] PCP - General 10/13/24 Carloz Day MD [address] [place] [address] Surgeon Otolaryngology 02/17/21 Willie Sargent MD [address] [facility] [address] [place] [address] Surgeon Otolaryngology 08/13/21 documented as of this encounter
--- OUTSIDE RECORDS SUMMARY | 2025-01-02 14:06 | XMS_ITS | Encounter Summary ---
Author Organization Healthcare Address [address] [place] [address] Care Team Providers Care Security Door Installer Name Role Phone Carloz Day MD Unavailable [phone] Pcp, No Primary Care Provider Unavailfei e John Gonzalez MD Primary Care Provider [phone] West Roblero MD Unavailable [phone] Willie Sargent MD Unavailable Rakesh Cheng DO Primary Care Provider [phone] Yovany Walsh MD Primary Care Provider [phone] [place] Resendez LPN Unavailable Unavailable Encounter Details Date Type Department Care Team (Late st Contact Info) Description 03/15/2005 Abstract [facility] [address] [place] [address] Hayley Jefferson RN [facility] Social History Tobacco Use Types Packs/Day Years Used Date Smoking Tobacco: Never Assessed Sex and Gender Information Value Date Recorded Sex Assigned at Not on file Legal Sex Male 8:40 PM EDT Gender Identity Not on file Sexual Orientation Not on file documented as of this encounter Plan of Treatment Not on file documented as of this encounter Visit Diagnoses Not on filedocumented in this encounter Additional Health Concerns Infection Onset Date Last Indicated Resolved Time COVID-19 Rule-Out 11/12/2024 11/12/2024 11/13/2024 1:58 PM EDT Streptococcus pneumoniae 11/12/2024 11/12/2024 9:53 PM EDT documented as of this encounter Care Teams Security Door Installer Relationship Specialty Start Date End Date Pcp, No [address] [place] [address] PCP - General 02/18/21 02/19/21 John Gonzalez MD [address] [place] [address] PCP - General 02/20/21 07/18/23 Rakesh Cheng DO [address] [place] [address] PCP - General 07/19/23 10/12/24 Yovany Walsh MD [address] [facility] [address] [place] [address] PCP - General 10/13/24 Carloz Day MD [address] [place] [address] Surgeon Otolaryngology 02/17/21 West Roblero MD [address] [facility] [address] [place] [address] Consulting Physician Radiation Therapy 04/06/21 Willie Sargent MD [address] [place] [address] Surgeon Otolaryngology 08/13/21 Georgia Resendez LPN [employer] [place] [address] TCM Nurse 11/19/24 12/19/24 documented as of this encounter
--- OUTSIDE RECORDS SUMMARY | 2025-01-02 14:06 | XMS_ITS | Encounter Summary ---
Author Organization [facility] Address [address] [place] [address] Care Team Providers Care Hire Car Driver Name Role Phone Carloz Day MD Unavailable [phone] Willie Sargent MD Unavailable Yovany Walsh MD Primary Care Provider [phone] Georgia Resendez LPN Unavailable Unavailable Reason for Visit * Reason Comments TCM Call Encounter Details Date Type Department Care Team (Late st Contact Info) Description 11/28/2024 Patient Outreach [facility] [address] [facility] [place] [address] Georgia Resendez LPN [employer] [place] [address] TCM Call Social History Tobacco Use Types Packs/Day Years [...] 11/14/2024 How often do you attend chur or christianity services? Patient unable to answer 11/14/2024 Do you belong to any clubs o r organizations such as yazidi groups, unions, fraEdyn or athletic groups, or school groups? Patient [...] Recorded Patient Health Questionnaire-2 Score 0 02/01/2023 [facility] - Occupational Stress Questionnaire Answer Date [...] place to sleep or slept in a chcf (including now)? No 07/19/2023 Housing Stability Vital [...] on file documented as of this encounter Miscellaneous Notes * Progress Notes - Georgia Resendez LPN - 11/28/2024 1:07 PM EDT Admit Date: 11/12/24 Discharge Date: 11/18/24 Hospital Service: Hospital Medicine Discharge Diagnosis: Acute Renal Failure Strep Pneumonia, shock, Hypoxia, ALONZO on CKD 3, Hyperkalemia, Hyperphosphatemia 11/28/2024 TCM Follow-up Call Patient reached: No Outcome: Unable to reach this patient for a ADAM follow up call. Patient's mailbox was full and was not taking new messages. SO has the same telephone number. Action: N/A documented in this encounter Plan of Treatment Not on [...] documented as of this encounter Care Teams Hire Car Driver Relationship Specialty Start Date End Date Yovany Walsh MD [facility] [place] [address] PCP - General 10/13/24 Carloz Day MD [address] [place] [address] Surgeon Otolaryngology 02/17/21 Willie Sargent MD [address] [place] [address] Surgeon Otolaryngology 08/13/21 Georgia Resendez LPN [employer] [place] [address] TCM Nurse 11/19/24 12/19/24 documented as of this encounter
--- OUTSIDE RECORDS SUMMARY | 2025-01-02 14:06 | XMS_ITS ---
Author Organization [facility] Address [address] [place] [address] Care Team Providers Care Knitter Helper Name Role Phone Carloz Day MD Unavailable [phone] Willie Sargent MD Unavailable Yovany Walsh MD Primary Care Provider [phone] Transitional Care Management Status:Closed (Closed) Start date:11/19/2024 Enrollment reason:Identified using hospital discharge data End date:12/19/2024 Close reason:Patient graduated Overview This episode type is for outpatient care managers enrolling patients in the [facility] Transitional Care Management program. Continued Care and Services Coordination
--- OUTSIDE RECORDS SUMMARY | 2025-01-02 14:06 | XMS_ITS | Encounter Summary ---
Author Organization [facility] Address [address] [place] [address] Care Team Providers Care Dog Or Animal Sitter Name Role Phone Carloz Day MD Unavailable [phone] Willie Sargent MD Unavailable Yovany Walsh MD Primary Care Provider [phone] Georgia Resendez LPN Unavailable Unavailable Reason for Visit * Reason Comments TCM Call Encounter Details Date Type Department Care Team (Late st Contact Info) Description 11/19/2024 Patient Outreach POPULATION HEALTH [address] [facility] [place] [place] [address] Georgia Resendez LPN [employer] [place] [address] TCM Call Social History Tobacco Use Types [...] How often do you attend chur or restorationism services? Patient unable to answer 11/14/2024 Do you belong to any clubs o r organizations such as rastafari groups, unions, fraEnglishUp or athletic groups, or school groups? Patient [...] Recorded Patient Health Questionnaire-2 Score 0 02/01/2023 [facility] - Occupational Stress Questionnaire Answer Date [...] place to sleep or slept in a longterm (including now)? No 07/19/2023 Housing Stability Vital [...] Progress Notes - Georgia Resendez LPN - 11/19/2024 1:08 PM EDT Admit Date: 11/12/24 Discharge Date: 11/18/24 Hospital Service: Hospital Medicine Discharge Diagnosis: Acute Renal Failure Strep Pneumonia, shock, Hypoxia, ALONZO on CKD 3, Hyperkalemia, Hyperphosphatemia 11/19/2024 TCM call # 1 Patient Reached: No Outcome: Unable to reach this patient. Patient's mailbox was full and was not taking new messages. Action: N/A Medication changes: Amlodipine 5 mg one tablet daily Changed to Amlodipine 10 mg once daily Start Taking: Acetaminophen 325 mg two tablets every 4 hours prn Stop Taking: Tizanidine 4 mg ADAM appointment: N/A Items to address at ADAM: - Avoid NSAIDS/nephrotoxic agents and renally dose medications --Would check BMP within 1 week upon follow up with PCP documented in this encounter Plan of Treatment [...] documented as of this encounter Care Teams Dog Or Animal Sitter Relationship Specialty Start Date End Date Yovany Walsh MD [address] [facility] [address] [place] [address] PCP - General 10/13/24 Carloz Day MD [address] [place] [address] Surgeon Otolaryngology 02/17/21 Willie Sargent MD [address] [place] [address] Surgeon Otolaryngology 08/13/21 Georgia Resendez LPN [employer] [place] [address] TCM Nurse 11/19/24 12/19/24 documented as of this encounter
--- OUTSIDE RECORDS SUMMARY | 2025-01-02 14:06 | XMS_ITS | Encounter Summary ---
Author Organization [facility] Address [address] [place] [address] Care Team Providers Care Flat Sorting Machine Clerk Name Role Phone Carloz Day MD Unavailable [phone] Willie Sargent MD Unavailable Yovany Walsh MD Primary Care Provider [phone] Georgia Resendez LPN Unavailable Unavailable Reason for Visit * Reason Comments TCM Call Encounter Details Date Type Department Care Team (Late st Contact Info) Description 11/20/2024 Patient Outreach POP[facility]ATION HEALTH [address] [facility] [place] [place] [address] Georgia Resendez LPN [employer] [place] [address] TCM Call Social History Tobacco Use Types [...] How often do you attend chur or hinduism services? Patient unable to answer 11/14/2024 Do you belong to any clubs o r organizations such as confucianist groups, unions, fravzaar or athletic groups, or school groups? Patient [...] Recorded Patient Health Questionnaire-2 Score 0 02/01/2023 [facility] - Occupational Stress Questionnaire Answer Date [...] place to sleep or slept in a mcfp (including now)? No 07/19/2023 Housing Stability Vital [...] Progress Notes - Georgia Resendez LPN - 11/20/2024 4:20 PM EDT Admit Date: 11/12/24 Discharge Date: 11/18/24 Hospital Service: Hospital Medicine Discharge Diagnosis: Acute Renal Failure Strep Pneumonia, shock, Hypoxia, ALONZO on CKD 3, Hyperkalemia, Hyperphosphatemia 11/20/2024 TCM call # 2 Patient Reached: No Outcome: Unable to reach this patient. Patient's mailbox was full and was not taking new messages. SO has the same telephone number. Action: N/A Medication changes: Amlodipine 5 mg [...] documented as of this encounter Care Teams Flat Sorting Machine Clerk Relationship Specialty Start Date End Date Yovany Walsh MD [address] [facility] [address] [place] [address] PCP - General 10/13/24 Carloz Day MD [address] [place] [address] Surgeon Otolaryngology 02/17/21 Willie Sargent MD [address] [place] [address] Surgeon Otolaryngology 08/13/21 Georgia Resendez LPN [employer] [place] [address] TCM Nurse 11/19/24 12/19/24 documented as of this encounter
--- OUTSIDE RECORDS SUMMARY | 2025-01-02 14:06 | XMS_ITS | Encounter Summary ---
Author Organization [facility] Address [address] [place] [address] Care Team Providers Care Glassine Machine Tender Name Role Phone Carloz Day MD Unavailable [phone] Willie Sargent MD Unavailable Yovany Walsh MD Primary Care Provider [phone] Georgia Resendez LPN Unavailable Unavailable Reason for Visit * Reason Comments TCM Call Encounter Details Date Type Department Care Team (Late st Contact Info) Description 11/21/2024 Patient Outreach POPULATION HEALTH [address] [facility] [place] [place] [address] Georgia Resendez LPN [employer] [place] [address] TCM Call Social History Tobacco Use Types [...] How often do you attend chur or roman catholic services? Patient unable to answer 11/14/2024 Do you belong to any clubs o r organizations such as latter-day groups, unions, fra[employer], [employer] or athletic groups, or school groups? Patient [...] Recorded Patient Health Questionnaire-2 Score 0 02/01/2023 [facility] - Occupational Stress Questionnaire Answer Date [...] place to sleep or slept in a detention (including now)? No 07/19/2023 Housing Stability Vital [...] Progress Notes - Georgia Resendez LPN - 11/21/2024 3:26 PM EDT Admit Date: 11/12/24 Discharge Date: 11/18/24 Hospital Service: Hospital Medicine Discharge Diagnosis: Acute Renal Failure Strep Pneumonia, shock, Hypoxia, ALONZO on CKD 3, Hyperkalemia, Hyperphosphatemia 11/21/2024 TCM call # 3 Patient Reached: No Outcome: Unable to reach this patient for a ADAM nurses call. Patient's mailbox was full and was nottaking new messages. His significant other listed has the same telephone number. A voice mail was left on his son John's phone to return the call. Action: N/A Medication changes: Amlodipine 5 mg [...] documented as of this encounter Care Teams Glassine Machine Tender Relationship Specialty Start Date End Date Yovany Walsh MD [address] [facility] [address] [place] [address] PCP - General 10/13/24 Carloz Day MD [address] [place] [address] Surgeon Otolaryngology 02/17/21 Willie Sargent MD [address] [place] [address] Surgeon Otolaryngology 08/13/21 Georgia Resendez LPN [employer] [place] [address] TCM Nurse 11/19/24 12/19/24 documented as of this encounter
--- NOTE | 2025-01-02 14:29 | EXP.PAIN.SOA ---
[facility] Disclaimer: The information contained in this section may have been updated after the patient was seen, as this information can be updated by other users. Medical History History of colon polyps Visualization difficulties noted on multiple colonoscopies. 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 History of 2019 novel coronavirus disease (COVID-19) Encounter for screening for malignant neoplasm of lung in current smoker with 30 pack year history or greater Smoking greater than 30 pack years Allergic rhinitis Overactive bladder Pneumonia History of COVID-19 Sexual dysfunction Arthritis Diverticulitis History of gastroesophageal reflux (GERD) Hypothyroid Allergies Hypertension Hyperlipidemia Bakers cyst Fracture of toe CKD (chronic kidney disease) stage 3, GFR 30-59 ml/min Squamous cell carcinoma Drug overdose Acute right flank pain Surgical History History of esophagogastroduodenoscopy (EGD) H/O colonoscopy S/P skin cancer resection History of total knee arthroplasty Family History Mother Breast cancer Father Lung cancer Family history of hypertension Grandfather Colon cancer Family history of hypertension Social History Smoking Status: Former smoker tobacco type: cigarettes packs per day: 1 years smoked: 1 second hand exposure: Yes alcohol intake: never substance use type: marijuana current occupational status: retired Travel in the last 8 weeks?: None household members: significant other housing: house current occupational exposures/hazards: No caffeine: Yes PM Subjective & Objective Subjective Subjective:: Patient is a pleasant 69-year-old male who presents today for 2-week follow-up. Patient rates his pain today as 7 out of 10. He denies any new trauma or injury. He does state he is still having the chronic neck pain related to his history of cancer and chemo and radiation. Patient at our last visit was not a fan of the injection ID and did want to wait. He states this is still true. He did get the compounded cream however he has not noticed a big difference as of right now. Patient was given a 2-week supply of Skelaxin 800 mg 3 times a day. He states he was not able to pick this up due to insurance needing a prior Auth. Patient states he is unsure if anything else was additionally sent to his insurance. His Willard has been reviewed and is appropriate. Review of Systems: General: No recent weight changes, no fever, no sleep disturbances Respiratory: No cough, no shortness of air, no recurring pulmonary infections Cardiovascular/peripheral vascular: No chest pain, no palpitations, no edema, no shortness of breath Gastrointestinal: No new onset incontinence, normal bowel movements reported Genitourinary: No new onset incontinence Musculoskeletal: Neck pain Psychiatric: [Normal mood/affect] Neurological: [Denies weakness in extremities], [denies balance issues] Pain at rest (0-10 scale): 7 Objective Objective:: Physical Exam: General: Alert and oriented x3, no acute distress, pleasant and cooperative Lungs: Respirations even and unlabored, symmetrical chest expansion Eyes: PERRL Musculoskeletal: Flexion and extension of cervical [spine] somewhat guarded secondary to pain, [antalgic gait noted] Neurological: Speech clear, no gross sensory deficit Has patient had previous pain injection?: No Conservative treatment options previously tried: Home exercise plan Length of treatment: Longer than 12 weeks Meds Home Medications and Allergies Home Medications ?Medication ?Instructions ?Recorded ?Confirmed ?Type blood pressure monitor (Blood #1 ea 12/22/22 12/24/24 Rx Pressure Kit) oxybutynin chloride 10 mg 10 mg PO DAILY #90 tabs 04/09/24 12/24/24 Rx tablet,extended release 24 hr tamsulosin 0.4 mg capsule (Flomax) 0.4 mg PO DAILY #30 caps 04/09/24 12/24/24 Rx bisoprolol fumarate 5 mg tablet 5 mg PO PM #30 tabs 04/10/24 12/24/24 Rx tizanidine 4 mg tablet 4 mg PO TIDP PRN Muscle Spasm 90 04/12/24 12/24/24 Rx days #270 tabs levothyroxine 125 mcg tablet 125 mcg PO DAILY 90 days #90 tabs 06/11/24 12/24/24 Rx montelukast 10 mg tablet 10 mg PO PM #90 tabs 06/21/24 12/24/24 Rx albuterol sulfate 90 mcg/actuation 2 puff inhalation Q4-6H PRN 10/17/24 12/24/24 Rx aerosol inhaler shortness of breath or wheezing #8.5 grams triamcinolone acetonide 0.1 % 1 applic topical TID PRN rash 10/17/24 12/24/24 Rx topical cream #453.6 grams duloxetine 30 mg capsule,delayed 30 mg PO DAILY 90 days #90 caps 11/06/24 12/24/24 Rx release pantoprazole 40 mg tablet,delayed 40 mg PO BID #180 tabs 11/06/24 12/24/24 Rx release valsartan 80 mg tablet 80 mg PO DAILY #90 tabs 11/06/24 12/24/24 Rx amlodipine 10 mg tablet 10 mg PO DAILY 11/19/24 12/24/24 History metaxalone 800 mg tablet 800 mg PO TID PRN muscle pain #42 12/05/24 12/24/24 Rx tabs atorvastatin 40 mg tablet 40 mg PO HS #90 tabs 12/19/24 12/24/24 Rx furosemide 40 mg tablet (Lasix) 40 mg PO DAILY PRN edema #60 tabs 12/24/24 12/24/24 Rx nicotine 21 mg/24 hr daily 1 patch transdermal DAILY #30 ea 12/24/24 12/24/24 Rx transdermal patch promethazine 25 mg tablet 25 mg PO Q6HP PRN nausea and 12/24/24 12/24/24 Rx vomiting #30 tabs New Prescriptions to Start Prescriptions: Allergies Allergy/AdvReac Type Severity Reaction Status Date / Time Penicillins (PENICILLINS) Allergy Intermediate Rash/hives Verified 12/24/24 13:24 Assessment and Plan *Assessment and plan (1) Chronic neck pain: Status: Chronic Category: Medical Code(s): M54.2 - Cervicalgia; G89.29 - Other chronic pain Plan I did discuss with the patient to contact his pharmacy they are at [place] and have them send paperwork to have the prior authorization submitted. We will have him return to clinic in 2 weeks once he has his prescriptions so he can try and see if this does provide additional relief. Patient agrees with this plan of care. Patient has been instructed to contact the clinic with any concerns before the next appointment. Dr. Salguero has reviewed this note and agrees with this plan of care. This note was dictated using voice recognition software and make contain errors or omissions. All injections are used with Lidocaine, Bupivacaine and dexamethasone. Occasionally urine drug screen is needed to verify patient's compliance with our office pain contract. This is ordered based off specific treatments related to chronic pain with the potential to abuse certain medications.
[2025-01-02 14:56] VITALS: BP 138/78; PULSE 90; RESP 14; O2SAT 96; BMI 33.3
== END 2025-01-02 23:59 | disposition home or self-care (01) ==
LOC: SC.PAIN 14:02
PROVIDERS: PCP Internal Medicine; Visit Provider Nurse Practitioner Family
DX: M54.2 Cervicalgia (principal); G89.29 Other chronic pain; Z79.52 Long term (current) use of systemic steroids; Z85.828 Personal history of other malignant neoplasm of skin; Z92.21 Personal history of antineoplastic chemotherapy
CPT/HCPCS: 99212; G0463

== ENCOUNTER 2025-02-18 15:22 | Outpatient (POV) | payer MEDICARE, SELFPAY ==
--- OUTSIDE RECORDS SUMMARY | 2025-02-18 15:24 | XMS_ITS | Encounter Summary ---
Author Organization [facility] Address [address] [place] [address] Care Team Providers Care Pneumatic Riveter Name Role Phone Carloz Day MD Unavailable [phone] Willie Sargent MD Unavailable Yovany Walsh MD Primary Care Provider [phone] Encounter Details Date Type Department Care Team (Late st Contact Info) Description 01/22/2025 Telephone [facility] [address] [place] [address] Merle Love, PharmD Social History Tobacco Use Types Packs/Day Years [...] answer 11/14/2024 How often do you attend [facility] or gnosticism services? Patient unable to answer 11/14/2024 Do you belong to any clubs o r organizations such as orthodoxy groups, unions, fraternal or athletic groups, or [...] Recorded Patient Health Questionnaire-2 Score 0 02/01/2023 [facility] - [facility]ational Stress Questionnaire Answer Date [...] as of this encounter Miscellaneous Notes * Telephone Encounter - Merle Love, PharmD - 01/22/2025 11:23 AM EDT Patient contacted by MTM team. No answer. Pharmacy: [facility] [place] Platform: EQUIPP and Outcomes TIP Additional information: atorvastatin adh documented in this encounter Plan of Treatment Not on file documented as of this encounter Visit Diagnoses Not on filedocumented in this encounter Additional Health Concerns Assessment Noted Time A fall risk assessment has been complete d for the patient 02/11/2023 9:08 AM EDT A Body Mass Index follow-up plan has been documented for the patient 11/18/2024 1:41 PM EDT documented as of this encounter Care Teams Pneumatic Riveter Relationship Specialty Start Date End Date Yovany Walsh MD [facility] [address] [place] [address] PCP - General 10/13/24 Carloz Day MD [address] [place] [address] Surgeon Otolaryngology 02/17/21 Willie Sargent MD [address] [place] [address] Surgeon Otolaryngology 08/13/21 documented as of this encounter"
--- OUTSIDE RECORDS SUMMARY | 2025-02-18 15:24 | XMS_ITS ---
Author Organization Healthcare Address [address] 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
--- OUTSIDE RECORDS SUMMARY | 2025-02-18 15:24 | XMS_ITS | Clinical Summary ---
Author Organization [facility] Address [address] [place] [address] Care Team Providers Care Registered Travel Nurse Name Role Phone Carloz Day MD Unavailable [phone] Willie Sargent MD Unavailable Yovany Walsh MD Primary Care Provider [phone] Allergies Active Allergy Reactions Criticality Noted Date [...] by mouth daily. 30 tablet 2 5 Active albuterol 108 (90 Base) MCG/ACT inhaler Inhale 2 puffs every 4 to 6 hours as needed for wheezing. 1 each 1 5 Active atorvastatin (Lipitor) 40 MG tablet Take 1 tablet by mouth nightly. 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 Dermatochalasis of both upper eyelids 02/18/2021 Overview (02/18/2021): Added automatically from request for surgery [id number] Hypertension 02/18/2021 Overview (08/08/2022): Home amlodipine and [...] neuro-ophthalmology outpatient for visual field testing -30d site monitor vs ILR at discharge given possible cardioembolic [...] (02/18/2021): Added automatically from request for surgery [id number] Lesion of left lower eyelid 02/17/2021 02/17/2021 [...] Encounters Date Type Department Care Team Description 02/13/2025 Telephone [facility] [address] [place] [address] Merle Love, PharmD 01/22/2025 Telephone [facility] [address] [place] [address] Merle Love, PharmD 11/28/2024 Patient Outreach POPULATION [address] Jacqueline [place], [address] [address] Georgia Resendez LPN TCM Call 11/21/2024 Patient Outreach POPULATION [address] [place], [address] [address] Georgia Resendez LPN TCM Call 11/20/2024 Patient Outreach POPULATION [address] [place], [address] [address] Georgia Resendez DRIVER TRAINER TCM Call 11/19/2024 Patient Outreach POPULATION [address], [address] [address] Georgia Resendez LPN TCM Call 11/12/2024 6:24 PM EDT - 11/18/2024 3:24 PM EDT Hospital Encounter [facility] H Inpatient [address] [place] [address] Kan Lucero MD Dhar, Sanjay, MD Foley, William S, MD Acute renal failure with tubular necrosis (CMS/HCC) (Primary Dx); Acute renal failure, unspecified acute renal failure type (CMS/HCC); Shock (CMS/HCC); Community acquired pneumonia, unspecified laterality; Hyperkalemia; Acute hypoxic respiratory failure; Stenosis of carotid artery, unspecified laterality; PVD (peripheral vascular disease) (CMS/HCC); Acquired obstruction of left nasolacrimal duct Discharge Disposition: Home or Self Care from Last 3 Months Immunizations Immunization Administration [...] 11/14/2024 How often do you attend [facility] or nondenominational services? Patient unable to answer 11/14/2024 Do you belong to any clubs o r organizations such as congregational groups, unions, fraternal or athletic groups, or [...] Recorded Patient Health Questionnaire-2 Score 0 02/01/2023 [facility] Occupational Stress Questionnaire Answer [...] place to sleep or slept in a group home (including now)? No 07/19/2023 Housing Stability Vital [...] Recorded In the past 12 months has e electric, gas, oil, or water company [...] Wellness (AWV) 1955 [facility]-/Child/Adol SDOH Screenings 1955 [id number] Vaccine (#1) 1962 [facility]-DTaP,Tdap,and Td Vaccines (1 [...] 04/30/2022 [facility]-Depression Screening 02/02/2024 02/01/2023 [facility]-Influenza Vaccine (#1) 03/18/202507/06, 04/30/2022, 06/26/2021, Additional history exists [facility]- SDOH [...] this topic Medical Devices Implanted Type Area Access Director Device Identifier Shelf Expiration Date Model / Serial / Lot Tubes Lacrimal Oliva 0.6mm X 150mm - [id number] - [id number] Implanted:Qty: 1 on 02/23/2021 by Dereje Shoemaker MD at [facility] Implant Left: Eye [employer]-[id number] 11/18/2024 LIS27T / [id number] / [id number] Screw 3.5mm Cortex Selftap 40mm - [id number] Implanted:Qty: 2 on 07/31/2022 by Pio Husain MD at [facility] Right: Hip [employer]-[id number] 07/31/2023 204.840 / / Chip Bone 20cc - [id number] - [id number] Implanted:Qty: 1 on 07/31/2022 by Pio Husain MD at [facility] Right: Hip [facility]-[id number] 05/27/2027 PCAN1/4 / [id number] / [id number] Screw 3.5mm Cortex Selftap 46mm - [id number] Implanted:Qty: 1 on 07/31/2022 by Pio Husain MD at [facility] Right: Hip [employer]-[id number] 07/31/2023 204.846 / / Plate Plvc Rcn Low Pro 3.5mm 7 Holes - [id number] Implanted:Qty: 2 on 07/31/2022 by Pio Husain MD at [facility] Right: Hip [employer]-[id number] 07/31/2023 245.027 / / Screw 3.5mm Cortex Selftap 26mm - [id number] Implanted:Qty: 1 on 07/31/2022 by Pio Husain MD at [facility] Right: Hip [employer]-[id number] 07/31/2023 204.826 / / Screw 3.5mm Cortex Selftap 30mm - [id number] Implanted:Qty: 1 on 07/31/2022 by Pio Husain MD at [facility] Right: Hip [employer]-[id number] 07/31/2023 204.830 / / Screw 3.5mm Cortex Selftap 34mm - [id number] Implanted:Qty: 1 on 07/31/2022 by Pio Husain MD at [facility] Right: Hip [employer]-[id number] 07/31/2023 204.834 / / Screw 3.5mm Cortex Selftap 36mm - [id number] Implanted:Qty: 1 on 07/31/2022 by Pio Husain MD at [facility] Right: Hip [employer]-[id number] 07/31/2023 204.836 / / Screw 3.5mm Cortex Selftap 38mm - [id number] Implanted:Qty: 1 on 07/31/2022 by Pio Husain MD at [facility] Right: Hip [employer] [facility]-[id number] 07/31/2023 204.838 / / Procedures Procedure Name Priority Date/Time Associated Diagnosis Comments CBC WITH AUTO DIFFERENTIAL Routine 11/18/2024 2:55 AM EDT CYSTATIN C Routine 11/18/2024 2:55 AM EDT IONIZED CALCIUM, WHOLE BLOOD Routine 11/18/2024 2:55 AM EDT MAGNESIUM, PLASMA Routine 11/18/2024 2:5 5 AM EDT RENAL FUNCTION PANEL, PLASMA Routine 11/18/2024 2:55 AM EDT ACUTE HEPATITIS PANEL Routine 11/12/2024 6:48 PM EDT HEMOGLOBIN A1C Routine 11/12/2024 6:48 PM EDT from Last 3 Months or Most Recently Relevant to Health Maintenance Results * Ionized calcium, whole blood (11/18/2024 2:55 AM EDT) Ionized Calcium, Whole Blood 4.7 4.6 - 5.1 mg/dL LAB HEMATOLOGY METHOD 11/18/2024 3:11 AM EDT [facility] Blood Venous blood specimen / Unknown Venipuncture / Unknown 11/18/2024 2:55 AM EDT 11/18/2024 3:09 AM EDT us Ellen Mendez APRN LAB BLOOD ORDERABLES Fin al Result [facility] [address] [place] [address] * (ABNORMAL) Cystatin C (11/18/2024 2:55 AM EDT) Pathologist [facility] Cystatin C 1.41(H) 0.61 - 0.95 mg/L 11/18/2024 3:44 AM EDT [facility] Blood Venous blood specimen / Unknown Venipuncture / Unknown 11/18/2024 2:55 AM EDT 11/18/2024 3:10 AM EDT Justo Perry MD LAB BLOOD ORDERABLES Final Re sult [facility] [address] [place] [address] * (ABNORMAL) CBC and differential (11/18/2024 2:55 AM EDT) WBC Count 5.82 3.70 - 10.30 10*3/uL LAB HEMATOLOGY METHOD 11/18/2024 3:19 AM EDT [facility] RBC Count 3.24(L) 4.60 - 6.10 10*6/uL LAB HEMATOLOGY METHOD 11/18/2024 3:19 AM EDT [facility] HGB 9.9(L) 13.7 - 17.5 g/dL LAB HEMATOLOGY METHOD 11/18/2024 3:19 AM EDT [facility] HCT 30.3(L) 40.0 - 51.0 % LAB HEMATOLOGY METHOD 11/18/2024 3:19 AM EDT [facility] Platelet Count 152(L) 155 - 369 10*3/uL LAB HEMATOLOGY METHOD 11/18/2024 3:19 AM EDT [facility] MCV 94 79 - 98 fL LAB HEMATOLOGY METHOD 11/18/2024 3:19 AM EDT [facility] MCH 30.6 26.0 - 32.0 pg LAB HEMATOLOGY METHOD 11/18/2024 3:19 AM EDT [facility] MCHC 32.7 30.7 - 35.5 g/dL LAB HEMATOLOGY METHOD 11/18/2024 3:19 AM EDT [facility] RDW 13.7 11.5 - 14.5 % LAB HEMATOLOGY METHOD 11/18/2024 3:19 AM EDT [facility] MPV 9.6 8.8 - 12.5 fL LAB HEMATOLOGY METHOD 11/18/2024 3:19 AM EDT [facility] nRBC 0.0 <=0.0 per 100 WBCs LAB HEMATOLOGY METHOD 11/18/2024 3:19 AM EDT [facility] Differential Type Automated LAB HEMATOLOGY METHOD 11/18/2024 3:19 AM EDT [facility] Neutrophils % 68 % LAB HEMATOLOGY METHOD 11/18/2024 3:19 AM EDT [facility] Lymphocytes % 19 % LAB HEMATOLOGY METHOD 11/18/2024 3:19 AM EDT [facility] Monocytes % 9 % LAB HEMATOLOGY METHOD 11/18/2024 3:19 AM EDT [facility] Eosinophils % 2 % LAB HEMATOLOGY METHOD 11/18/2024 3:19 AM EDT [facility] Basophils % 1 % LAB HEMATOLOGY METHOD 11/18/2024 3:19 AM EDT [facility] Immature Granulocytes % 1 % LAB HEMATOLOGY METHOD 11/18/2024 3:19 AM EDT [facility] Neutrophils Absolute 3.99 1.60 - 6.10 10*3/uL LAB HEMATOLOGY METHOD 11/18/2024 3:19 AM EDT [facility] Lymphocytes Absolute 1.08(L) 1.20 - 3.90 10*3/uL LAB HEMATOLOGY METHOD 11/18/2024 3:19 AM EDT [facility] Monocytes Absolute 0.51 0.30 - 0.90 10*3/uL LAB HEMATOLOGY METHOD 11/18/2024 3:19 AM EDT [facility] Eosinophils Absolute 0.13 0.00 - 0.50 10*3/uL LAB HEMATOLOGY METHOD 11/18/2024 3:19 AM EDT [facility] Basophils Absolute 0.03 0.00 - 0.10 10*3/uL LAB HEMATOLOGY METHOD 11/18/2024 3:19 AM EDT [facility] Immature Granulocytes Absolute 0.08(H) 0.00 - 0.06 10*3/uL LAB HEMATOLOGY METHOD 11/18/2024 3:19 AM EDT [facility] Blood Venous blood specimen / Unknown Venipuncture / Unknown 11/18/2024 2:55 AM EDT 11/18/2024 3:09 AM EDT [facility] - 11/18/2024 3:19 AM EDT Therapeutic decision making should be based on absolute values, rather than percentages. us Justo Perry MD LAB BLOOD ORDERABLES Final Re sult [facility] [address] [place] [address] * Magnesium, Plasma (11/18/2024 2:55 AM EDT) Magnesium, Plasma 2.0 1.9 - 2.4 mg/dL 11/18/2024 3:44 AM EDT [facility] Blood Venous blood specimen / Unknown Venipuncture / Unknown 11/18/2024 2:55 AM EDT 11/18/2024 3:10 AM EDT us MEREDITH Elizabeth III LAB BLOOD ORDERABLES Lenka l Result Performing Organization Address [facility]/ZIP Co de Phone Number [facility] [address] [place] [address] * (ABNORMAL) Renal Function Panel, Plasma (11/18/2024 2:55 AM EDT) Glucose, Plasma 104(H) 74 - 99 mg/dL 11/18/2024 3:44 AM EDT [facility] BUN, Plasma 20 8 - 23 mg/dL 11/18/2024 3:44 AM EDT [facility] Creatinine, Plasma 1.01 0.70 - 1.20 mg/dL 11/18/2024 3:44 AM EDT [facility] BUN/Creatinine Ratio 20 11/18/2024 3:44 AM EDT [facility] Sodium, Plasma 141 136 - 145 mmol/L 11/18/2024 3:44 AM EDT [facility] Potassium, Plasma 4.2 3.6 - 4.9 mmol/L 11/18/2024 3:44 AM EDT [facility] Chloride, Plasma 107 97 - 107 mmol/L 11/18/2024 3:44 AM EDT [facility] CO2, Plasma 24 22 - 29 mmol/L 11/18/2024 3:44 AM EDT [facility] Anion Gap 10 6 - 16 mmol/L 11/18/2024 3:44 AM EDT [facility] Total Calcium, Plasma 9.2 8.9 - 10.2 mg/dL 11/18/2024 3:44 AM EDT [facility] Phosphorus, Plasma 2.6 2.5 - 4.5 mg/dL 11/18/2024 3:44 AM EDT [facility] Albumin, Plasma 3.2(L) 3.5 - 5.2 g/dL 11/18/2024 3:44 AM EDT [facility] eGFRcr 81.5 mL/min/1.7 3m*2 11/18/2024 3:44 AM EDT [facility] Comment:Reported eGFRcr in m L/min/1.73m2 is based the CKD-EPI 2020 equation that does not use a race coefficient. Blood Venous blood specimen / Unknown Venipuncture / Unknown 11/18/2024 2:55 AM EDT 11/18/2024 3:10 AM EDT us MEREDITH Elizabeth III LAB BLOOD ORDERABLES Lenka l Result [facility] [address] [place] [address] * Acute Hepatitis Panel (11/12/2024 6:48 PM EDT) Hepatitis B Surf Antigen Negative Negative 11/12/2024 8:13 PM EDT [facility] Hepatitis C Antibody Negative Negative 11/12/2024 8:13 PM EDT [facility] Hepatitis A Antibody IgM Negative Negative 11/12/2024 8:13 PM EDT [facility] Hepatitis B Core Antibody IgM Negative Negative 11/12/2024 8:13 PM EDT [facility] Blood Venous blood specimen / Unknown Venipuncture / Unknown 11/12/2024 6:48 PM EDT 11/12/2024 7:06 PM EDT us Lucinda Chapin APRN LAB BLOOD ORDERABLES Lenka l Result Performing Organization Address City/[facility]/ZIP Co de Phone Number [facility] [address] [place] [address] * (ABNORMAL) Hemoglobin A1c (11/12/2024 6:48 PM EDT) Hemoglobin A1c 5.8(H) <5.7 % 11/12/2024 8:15 PM EDT [facility] Blood Venous blood specimen / Unknown Venipuncture / Unknown 11/12/2024 6:48 PM EDT 11/12/2024 7:04 PM EDT Narrative [facility] - 11/12/2024 8:15 PM EDT HA1C Interpretive Data: Diagnosis of Diabetes: Diabetic > or = 6.5% Pre-diabetic 5.7 to 6.4% Non-diabetic < or = 5.6% Glycemic Targets for Type I and Type II Diabetics: Non- Adults <7.0% Adults <6.0% Children and Adolescents <7.5% Source: [place] [employer]. Standards of medical care in diabetes,2017. Diabetes Care.2017:40 (suppl 1):S1-S135. Lucinda Chapin APRN LAB BLOOD ORDERABLES Lenka l Result [facility] [address] [place] [address] from Last 3 Months or Most Recently Relevant to Health Maintenance Insurance [facility] Advance Directives * Full Code (Latest [...] Atkinson Son Next of Kin Care Teams Registered Travel Nurse Relationship Specialty Start Date End Date Yovany Walsh MD [address] [facility] [address] [place] [address] PCP - General 10/13/24 Carloz Day MD [address] [place] [address] Surgeon Otolaryngology 02/17/21 Willie Sargent MD [address] [place] [address] Surgeon Otolaryngology 08/13/21
--- OUTSIDE RECORDS SUMMARY | 2025-02-18 15:24 | XMS_ITS | Encounter Summary ---
Author Organization Healthcare Address [address] [place] [address] Care Team Providers Care Terrazzo Tile Setter Name Role Phone Carloz Day MD Unavailable [phone] Pcp, No Primary Care Provider Unavailfei e John Gonzalez MD Primary Care Provider [phone] [place] Roblero MD Unavailable [phone] Willie Sargent MD Unavailable Rakesh Cheng DO Primary Care Provider [phone] Yovany Walsh MD Primary Care Provider [phone] Georgia Resendez LPN Unavailable Unavailable Encounter Details Date Type Department Care Team (Late st Contact Info) Description 03/15/2005 Abstract [facility] [address] [place] [address] Hayley Jefferson, RN [facility] Social History Tobacco [...] documented as of this encounter Care Teams Terrazzo Tile Setter Relationship Specialty Start Date End Date Pcp, No [address] [place] [address] PCP - General 02/18/21 02/19/21 John Gonzalez MD [address] [place] [address] PCP - General 02/20/21 07/18/23 Rakesh Cheng DO [address] [place] [address] PCP - General 07/19/23 10/12/24 Yovany Walsh MD [address] [facility] [address] [place] [address] PCP - General 10/13/24 Carloz Day MD [address] [place] [address] Surgeon Otolaryngology 02/17/21 West Roblero MD [address] [facility] [address] [place] [address] Consulting Physician Radiation Therapy 04/06/21 Willie Sargent MD [address] [place] [address] Surgeon Otolaryngology 08/13/21 Georgia Resendez LPN [employer] [place] [address] TCM Nurse 11/19/24 12/19/24 documented as of this encounter
--- OUTSIDE RECORDS SUMMARY | 2025-02-18 15:24 | XMS_ITS | Encounter Summary ---
Author Organization [facility] Address [address] [place] [address] Care Team Providers Care Lithographic Printing Machinist Name Role Phone Carloz Day MD Unavailable [phone] Willie Sargent MD Unavailable Yovany Walsh MD Primary Care Provider [phone] Encounter Details Date Type Department Care Team (Late st Contact Info) Description 02/13/2025 Telephone [facility] [address] [place] [address] Merle Love, PharmD Social History [...] answer 11/14/2024 How often do you attend [facility] or caodaism services? Patient unable to answer 11/14/2024 Do you belong to any clubs o r organizations such as christianity groups, unions, fraternal or athletic groups, or [...] Questionnaire-2 Score 0 [facility] - [facility]ational Stress Questionnaire Answer [...] Telephone Encounter - Merle Love, PharmD - 02/13/2025 11:04 AM EDT Patient contacted by MTM team. Sent [employer] message. Pharmacy: [facility] Platform: [employer] Additional information: nothing Outcomes at this time, atorvastatin documented in this encounter Plan of Treatment [...] documented as of this encounter Care Teams Lithographic Printing Machinist Relationship Specialty Start Date End Date Yovany Walsh MD [facility] [address] [place] [address] PCP - General 10/13/24 Carloz Day MD [address] [place] [address] Surgeon Otolaryngology 02/17/21 Willie Sargent MD [address] [place] [address] Surgeon Otolaryngology 08/13/21 documented as of this encounter
[2025-02-18 15:33] VITALS: BP 84/60; BP 90/60; PULSE 88; RESP 12; O2SAT 94; BMI 33.4
--- NOTE | 2025-02-18 15:43 | EXP.PAIN.SOA ---
[facility] Disclaimer: The information contained in this section may have been updated after the patient was seen, as this information can be updated by other users. Medical History History of colon polyps Visualization difficulties noted on multiple colonoscopies. 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 History of 2019 novel coronavirus disease (COVID-19) Encounter for screening for malignant neoplasm of lung in current smoker with 30 pack year history or greater Smoking greater than 30 pack years Allergic rhinitis Overactive bladder Pneumonia History of COVID-19 Sexual dysfunction Arthritis Diverticulitis History of gastroesophageal reflux (GERD) Hypothyroid Allergies Hypertension Hyperlipidemia Bakers cyst Fracture of toe CKD (chronic kidney disease) stage 3, GFR 30-59 ml/min Squamous cell carcinoma Drug overdose Acute right flank pain Surgical History History of esophagogastroduodenoscopy (EGD) H/O colonoscopy S/P skin cancer resection History of total knee arthroplasty Family History Mother Breast cancer Father Lung cancer Family history of hypertension Grandfather Colon cancer Family history of hypertension Social History Smoking Status: Former smoker tobacco type: cigarettes packs per day: 1 years smoked: 1 second hand exposure: Yes alcohol intake: never substance use type: marijuana current occupational status: other Travel in the last 8 weeks?: None household members: significant other housing: house current occupational exposures/hazards: No caffeine: Yes PM Subjective & Objective Subjective Subjective:: Patient is a pleasant 70-year-old male who presents today for follow-up. Patient does state he still continues to have the chronic neck pain but it continues to be an every day occurrence. He states it is progressively worsening. Patient does feel like he still will not have significant relief until he goes back up on the oxycodone. Patient was previously prescribed Skelaxin 800 mg 3 times a day and compounded cream from our office. He does state that the Skelaxin actually did cause his stomach to be bothered and did not really seem to make any additional improvement. Patient did not notice a big difference with the compounded cream either. His Willard has been reviewed and is appropriate. Review of Systems: General: No recent weight changes, no fever, no sleep disturbances Respiratory: No cough, no shortness of air, no recurring pulmonary infections Cardiovascular/peripheral vascular: No chest pain, no palpitations, no edema, no shortness of breath Gastrointestinal: No new onset incontinence, normal bowel movements reported Genitourinary: No new onset incontinence Musculoskeletal: Neck pain Psychiatric: [Normal mood/affect] Neurological: [Denies weakness in extremities], [denies balance issues] Pain at rest (0-10 scale): 7 Objective Objective:: Physical Exam: General: Alert and oriented x3, no acute distress, pleasant and cooperative Lungs: Respirations even and unlabored, symmetrical chest expansion Eyes: PERRL Musculoskeletal: Flexion and extension of cervical [spine] somewhat guarded secondary to pain, [antalgic gait noted] Neurological: Speech clear, no gross sensory deficit Has patient had previous pain injection?: No Conservative treatment options previously tried: Home exercise plan Length of treatment: Longer than 12 weeks Meds Home Medications and Allergies Home Medications ?Medication ?Instructions ?Recorded ?Confirmed ?Type blood pressure monitor (Blood #1 ea 12/22/22 02/18/25 Rx Pressure Kit) oxybutynin chloride 10 mg 10 mg PO DAILY #90 tabs 04/09/24 02/18/25 Rx tablet,extended release 24 hr tamsulosin 0.4 mg capsule (Flomax) 0.4 mg PO DAILY #30 caps 04/09/24 02/18/25 Rx bisoprolol fumarate 5 mg tablet 5 mg PO PM #30 tabs 04/10/24 02/18/25 Rx tizanidine 4 mg tablet 4 mg PO TIDP PRN Muscle Spasm 90 04/12/24 02/18/25 Rx days #270 tabs levothyroxine 125 mcg tablet 125 mcg PO DAILY 90 days #90 tabs 06/11/24 02/18/25 Rx montelukast 10 mg tablet 10 mg PO PM #90 tabs 06/21/24 02/18/25 Rx albuterol sulfate 90 mcg/actuation 2 puff inhalation Q4-6H PRN 10/17/24 02/18/25 Rx aerosol inhaler shortness of breath or wheezing #8.5 grams triamcinolone acetonide 0.1 % 1 applic topical TID PRN rash 10/17/24 02/18/25 Rx topical cream #453.6 grams duloxetine 30 mg capsule,delayed 30 mg PO DAILY 90 days #90 caps 11/06/24 02/18/25 Rx release pantoprazole 40 mg tablet,delayed 40 mg PO BID #180 tabs 11/06/24 02/18/25 Rx release metaxalone 800 mg tablet 800 mg PO TID PRN muscle pain #42 12/05/24 02/18/25 Rx tabs atorvastatin 40 mg tablet 40 mg PO HS #90 tabs 12/19/24 02/18/25 Rx furosemide 40 mg tablet (Lasix) 40 mg PO DAILY PRN edema #60 tabs 12/24/24 02/18/25 Rx nicotine 21 mg/24 hr daily 1 patch transdermal DAILY #30 ea 12/24/24 02/18/25 Rx transdermal patch amlodipine 5 mg tablet See Rx Instructions .Route 01/25/25 02/18/25 Rx .COMPLEX #90 tabs valsartan 80 mg tablet 80 mg PO DAILY #90 tabs 02/04/25 02/18/25 Rx cefdinir 300 mg capsule 300 mg PO BID #20 caps 02/14/25 02/18/25 Rx methylprednisolone 4 mg tablets in See Rx Instructions PO PER PKG DIR 02/14/25 02/18/25 Rx a dose pack #21 tabs promethazine 25 mg tablet 25 mg PO Q6HP PRN nausea and 02/18/25 02/18/25 Rx vomiting #30 tabs New Prescriptions to Start Prescriptions: Allergies Allergy/AdvReac Type Severity Reaction Status Date / Time Penicillins (PENICILLINS) Allergy Intermediate Rash/hives Verified 02/14/25 14:15 Assessment and Plan *Assessment and plan (1) Chronic neck pain: Status: Chronic Category: Medical Code(s): M54.2 - Cervicalgia; G89.29 - Other chronic pain Plan I will prescribe him gabapentin 300 mg 3 times a day and provide a 1 month supply of this medication. Patient has had this medication in the past with no side effects. Patient will return to clinic in 1 month for reevaluation of symptoms and plan of care. Patient has been instructed to contact the clinic with any concerns before the next appointment. Dr. Salguero has reviewed this note and agrees with this plan of care. This note was dictated using voice recognition software and make contain errors or omissions. All injections are used with Lidocaine, Bupivacaine and dexamethasone. Occasionally urine drug screen is needed to verify patient's compliance with our office pain contract. This is ordered based off specific treatments related to chronic pain with the potential to abuse certain medications.
== END 2025-02-18 23:59 | disposition home or self-care (01) ==
PROVIDERS: PCP Internal Medicine; Visit Provider Nurse Practitioner Family
DX: M54.2 Cervicalgia (principal); G89.29 Other chronic pain; Z79.899 Other long term (current) drug therapy
CPT/HCPCS: 99212; G0463

== ENCOUNTER 2025-03-05 07:24 | Day surgery (SDC) | payer MEDICARE, SELFPAY ==
[2025-03-01 10:02] VITALS: BMI 33.0
--- NOTE | 2025-03-05 07:52 | EXP.GEN.HP ---
HPI HPI HPI: This is a 70-year-old gentleman who reports for esophagogastroduodenoscopy. He has a history of bleeding gastric ulcer and underwent exploratory laparotomy with control of gastric hemorrhage in June 2023. His most recent esophagogastroduodenoscopy was combined with colonoscopy in November 2023. No active bleeding or significant ulcer disease noted at that time. Follow-up barium enema revealed no significant abnormality and he was to be scheduled for repeat colonoscopy between November 2025 and November 2026. With regard to repeat esophagogastroduodenoscopy, he states that over the past few months he has noticed some increased nausea and vague abdominal pain/reflux. No hematemesis. No melena. [facility] Disclaimer: The information contained in this section may have been updated after the patient was seen, as this information can be updated by other users. Medical History History of colon polyps Visualization difficulties noted on multiple colonoscopies. 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 History of 2019 novel coronavirus disease (COVID-19) Encounter for screening for malignant neoplasm of lung in current smoker with 30 pack year history or greater Smoking greater than 30 pack years Allergic rhinitis Overactive bladder Pneumonia History of COVID-19 Sexual dysfunction Arthritis Diverticulitis History of gastroesophageal reflux (GERD) Hypothyroid Allergies Hypertension Hyperlipidemia Bakers cyst Fracture of toe CKD (chronic kidney disease) stage 3, GFR 30-59 ml/min Squamous cell carcinoma Drug overdose Acute right flank pain Surgical History History of esophagogastroduodenoscopy (EGD) H/O colonoscopy S/P skin cancer resection History of total knee arthroplasty Family History Mother Breast cancer Father Lung cancer Family history of hypertension Grandfather Colon cancer Family history of hypertension Social History Smoking Status: Former smoker tobacco type: cigarettes packs per day: 1 years smoked: 1 second hand exposure: Yes alcohol intake: never substance use type: marijuana current occupational status: other Travel in the last 8 weeks?: None household members: significant other housing: house current occupational exposures/hazards: No caffeine: Yes Have you lived/traveled outside [place] in past 30 days?: No Contact w/someone who lives/traveled outside US past 30 days?: No Exposure to someone with infectious disease in past 14 days?: No Do you have a fever (greater than 100.4 F or 38 C)?: No Have you tested positive for COVID-19?: No Exposed to someone with COVID-19 in past 14 days?: No Do you have a sore throat?: No Do you have a cough?: No Do you have any weakness?: No Do you have any diarrhea?: No Are you experiencing any unusual bleeding?: No Do you have any muscle aches/pain?: No Do you have any abdominal pain?: No Are you experiencing loss of taste or smell?: No Other Medical History Have you received the Flu Vaccine for this season: No Have you received the Pneumonia Vaccine: No Review of Systems Review of Systems Review of systems:: pertinent systems reviewed and negative unless documented below *Gastrointestinal Gastrointestinal: Reports as per [facility] Meds Home Medications and Allergies Home Medications ?Medication ?Instructions ?Recorded ?Confirmed ?Type blood pressure monitor (Blood #1 ea 12/22/22 02/18/25 Rx Pressure Kit) tamsulosin 0.4 mg capsule (Flomax) 0.4 mg PO DAILY #30 caps 04/09/24 03/05/25 Rx tizanidine 4 mg tablet 4 mg PO TIDP PRN Muscle Spasm 90 04/12/24 03/05/25 Rx days #270 tabs levothyroxine 125 mcg tablet 125 mcg PO DAILY 90 days #90 tabs 06/11/24 03/05/25 Rx montelukast 10 mg tablet 10 mg PO PM #90 tabs 06/21/24 03/05/25 Rx albuterol sulfate 90 mcg/actuation 2 puff inhalation Q4-6H PRN 10/17/24 03/05/25 Rx aerosol inhaler shortness of breath or wheezing #8.5 grams triamcinolone acetonide 0.1 % 1 applic topical TID PRN rash 10/17/24 03/05/25 Rx topical cream #453.6 grams duloxetine 30 mg capsule,delayed 30 mg PO DAILY 90 days #90 caps 11/06/24 03/05/25 Rx release pantoprazole 40 mg tablet,delayed 40 mg PO BID #180 tabs 11/06/24 03/05/25 Rx release atorvastatin 40 mg tablet 40 mg PO HS #90 tabs 12/19/24 03/05/25 Rx furosemide 40 mg tablet (Lasix) 40 mg PO DAILY PRN edema #60 tabs 12/24/24 03/05/25 Rx nicotine 21 mg/24 hr daily 1 patch transdermal DAILY #30 ea 12/24/24 03/05/25 Rx transdermal patch amlodipine 5 mg tablet See Rx Instructions .Route 01/25/25 03/05/25 Rx .COMPLEX #90 tabs valsartan 80 mg tablet 80 mg PO DAILY #90 tabs 02/04/25 03/05/25 Rx gabapentin 300 mg capsule 300 mg PO TID #90 caps 02/18/25 03/05/25 Rx promethazine 25 mg tablet 25 mg PO Q6HP PRN nausea and 02/18/25 03/05/25 Rx vomiting #30 tabs New Prescriptions to Start Prescriptions: Allergies Allergy/AdvReac Type Severity Reaction Status Date / Time Penicillins (PENICILLINS) Allergy Intermediate Rash/hives Verified 03/05/25 07:42 Exam Constitutional Constitutional: no acute distress *Routine HEENT Exam Head: Present normocephalic Eye: Present EOMI ENT: Present mucous membranes moist *Routine Neck Exam Neck: Present full ROM *Routine Respiratory Exam Respiratory: Absent respiratory distress *Routine Cardiovascular Exam Cardiovascular: Absent tachycardia *Routine Abdominal Exam Abdominal: Present soft *Routine Rectal Exam Rectal:: deferred *Routine Genitalia Exam Genitalia:: deferred *Routine Extremities Exam Extremities: Present full ROM *Routine Skin Exam Skin: Absent erythema *Routine Neurological Exam Neurological: Present alert Assessment and Plan *Assessment and plan (1) GERD (gastroesophageal reflux disease): Problem Comment: Acute flare of a chronic problem. Status: Chronic Qualifiers: Esophagitis presence: esophagitis presence not specified Qualified Code(s): K21.9 - Gastro-esophageal reflux disease without esophagitis Category: Medical Code(s): K21.9 - Gastro-esophageal reflux disease without esophagitis (2) History of bleeding peptic ulcer: Status: Chronic Category: Medical Code(s): Z87.11 - Personal history of peptic ulcer disease Plan Continue proton pump inhibition Repeat esophagogastroduodenoscopy today I have discussed the risks and benefits including, but not limited to: Bleeding Infection Damage to surrounding tissue Inherent risks of sedation The patient agrees to proceed.
[2025-03-05 07:54] VITALS: BP 95/50; PULSE 58; RESP 17; TEMP 36.5; O2SAT 95
[2025-03-05] MEDS: LACTATED RINGERS 1000ML 1,000 ML 50 ML IV (07:58)
--- NOTE | 2025-03-05 08:02 | EXP.ANES.CKL ---
[facility] Disclaimer: The information contained in this section may have been updated after the patient was seen, as this information can be updated by other users. Medical History History of colon polyps Visualization difficulties noted on multiple colonoscopies. Dyspnea on exertion Mediastinal lymphadenopathy [id number] syndrome manifesting as chronic dyspnea History of 2019 novel coronavirus disease (COVID-19) Encounter for screening for malignant neoplasm of lung in current smoker with 30 pack year history or greater Smoking greater than 30 pack years Allergic rhinitis Overactive bladder Pneumonia History of COVID-19 Sexual dysfunction Arthritis Diverticulitis History of gastroesophageal reflux (GERD) Hypothyroid Allergies Hypertension Hyperlipidemia Bakers cyst Fracture of toe CKD (chronic kidney disease) stage 3, GFR 30-59 ml/min Squamous cell carcinoma Drug overdose Acute right flank pain Surgical History History of esophagogastroduodenoscopy (EGD) H/O colonoscopy S/P skin cancer resection History of total knee arthroplasty Family History Mother Breast cancer Father Lung cancer Family history of hypertension Grandfather Colon cancer Family history of hypertension Social History Smoking Status: Former smoker tobacco type: cigarettes packs per day: 1 years smoked: 1 second hand exposure: Yes alcohol intake: never substance use type: marijuana current occupational status: other Travel in the last 8 weeks?: None household members: significant other housing: house current occupational exposures/hazards: No caffeine: Yes Have you lived/traveled outside [place] in past 30 days?: No Contact w/someone who lives/traveled outside US past 30 days?: No Exposure to someone with infectious disease in past 14 days?: No Do you have a fever (greater than 100.4 F or 38 C)?: No Have you tested positive for COVID-19?: No Exposed to someone with COVID-19 in past 14 days?: No Do you have a sore throat?: No Do you have a cough?: No Do you have any weakness?: No Do you have any diarrhea?: No Are you experiencing any unusual bleeding?: No Do you have any muscle aches/pain?: No Do you have any abdominal pain?: No Are you experiencing loss of taste or smell?: No [facility] Anesthesia Checklist Patient Identification Patient Identification: Arm Band and Verbal (Name & ) Structural Data Admitted From: Home Planned Operative Procedure/s: EGD Consent for Planned Operative Procedure(s) Verified: Yes Verified Documents: Surgical Consent NPO Status Verified Time NPO: 00:00 Additional verifications Anesthesia Reactions: No Hx Blood Transfusions: No Blood Transfusion Reaction: No Airway Assessment Dentition: Edentulous Neurological Assessment Level of Consciousness: Awake, Alert and Appropriate Hx Seizures: No Numbness or tingling in extremities: No Anesthesia Plan Anesthesia Risk discussed: Yes Anesthesia Plan: Verified ASA Class: III Anesthesia Type: MAC
[2025-03-05 08:15] LABS: Hematocrit 35.6 % (42.0-52.0); Hemoglobin 11.4 g/dL (14.1-18.0)
--- NOTE | 2025-03-05 08:27 | HMH.SCOPE ---
Procedure: Date: 03/05/25 Patient Date of :: 1955 Procedure Performed:: Esophagogastroduodenoscopy with biopsy Indications:: Nausea/vomiting History of gastric ulcer Performing Provider:: Mal Waller MD Referring Provider:: . Sedation:: Monitored anesthesia care Procedure:: After informed consent was obtained the patient was taken to the endoscopy suite. Sedation ensued after the patient was transferred to the left lateral decubitus position. Pulse, blood pressure, and oxygen saturation were monitored throughout the procedure. The endoscope was advanced beyond the duodenal bulb. Retroflexion within the gastric lumen was accomplished. The gastroscope was carefully removed and the patient was transferred to recovery in stable condition. Please see findings and specimens below for detail. Findings:: Fairly large volume of food particles within gastric lumen No evidence of active/recent hemorrhage No obvious ulceration Specimens:: Antral biopsy Recommendations:: Follow-up pathology Consider UGI/SBFT Consider gastric emptying scan Consider gastroenterology consultation Complications:: No immediate Estimated blood obtained (mL): 1 Colonoscopy Component Colonoscopy Component Was a colonoscopy performed during today's procedure?: No
[2025-03-05 08:29] VITALS: BP 84/44; PULSE 58; RESP 18; TEMP 36.5; O2SAT 91
[2025-03-05 08:39] VITALS: BP 95/48; PULSE 56; RESP 16; TEMP 36.5; O2SAT 91
[2025-03-05 08:49] VITALS: BP 93/51; PULSE 57; RESP 18; TEMP 36.5; O2SAT 97
[2025-03-05 08:59] VITALS: BP 127/98; PULSE 60; RESP 18; TEMP 36.5; O2SAT 97
== END 2025-03-05 08:59 | disposition home or self-care (01) ==
PROVIDERS: PCP Internal Medicine; Visit Provider Surgery
PROC: 0DJ08ZZ Inspection of Upper Intestinal Tract, Via Natural or Artificial Opening Endoscopic (ICD-10-PCS; CPT 43239; principal; 2025-03-05 08:30)
DX: K29.50 Unspecified chronic gastritis without bleeding (principal); I12.9 Hypertensive chronic kidney disease with stage 1 through stage 4 chronic kidney disease, or unspecified chronic kidney disease; N18.30 Chronic kidney disease, stage 3 unspecified; M19.90 Unspecified osteoarthritis, unspecified site; E78.5 Hyperlipidemia, unspecified; E03.9 Hypothyroidism, unspecified; Z87.891 Personal history of nicotine dependence; Z88.1 Allergy status to other antibiotic agents; Z79.890 Hormone replacement therapy; Z79.899 Other long term (current) drug therapy
CPT/HCPCS: 43239; 85014; 85018; J2003; J2704; J7120

== ENCOUNTER 2025-03-29 08:54 | Outpatient (CLI) | payer MEDICARE, SELFPAY ==
--- OUTSIDE RECORDS SUMMARY | 2025-03-29 08:55 | XMS_ITS ---
Author Organization Healthcare Address [address] 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
--- OUTSIDE RECORDS SUMMARY | 2025-03-29 08:56 | XMS_ITS | Encounter Summary ---
Author Organization Healthcare Address [address] [place] [address] Care Team Providers Care Automatic Grinder Operator Name Role Phone Carloz Day MD Unavailable [phone] Pcp, No Primary Care Provider Unavailfei e John Gonzalez MD Primary Care Provider [phone] [place] Roblero MD Unavailable [phone] Willie Sargent MD Unavailable Rakesh Cheng DO Primary Care Provider [phone] Yovany Walsh MD Primary Care Provider [phone] [place] Resendez LPN Unavailable Unavailable Encounter Details Date Type Department Care Team (Late st Contact Info) Description 03/15/2005 Abstract [facility] [id number] [place] [address] Hayley Jefferson RN [facility] Social [...] documented as of this encounter Care Teams Automatic Grinder Operator Relationship Specialty Start Date End Date Pcp, No [address] [place] [address] PCP - General 02/18/21 02/19/21 John Gonzalez MD [address] [place] [address] PCP - General 02/20/21 07/18/23 Rakesh Cheng DO [address] [place] [address] PCP - General 07/19/23 10/12/24 Yovany Walsh MD [address] [facility] [address] [place] [address] PCP - General 10/13/24 Carloz Day MD [address] [place] [id number] Surgeon Otolaryngology 02/17/21 West Roblero MD [address] [facility] [id number] [place] [id number] Consulting Physician Radiation Therapy 04/06/21 Willie Sargent MD [address] [place] [address] Surgeon Otolaryngology 08/13/21 Georgia Resendez LPN VALUE-BASED [place] [place] [address] TCM Nurse 11/19/24 12/19/24 documented as of this encounter
--- OUTSIDE RECORDS SUMMARY | 2025-03-29 08:56 | XMS_ITS | Clinical Summary ---
Author Organization [facility] Address [address] [place] [address] Care Team Providers Care Motor Vehicle Assembler Name Role Phone Carloz Day MD Unavailable [phone] Willie Sargent MD Unavailable Yovany Walsh MD Primary Care Provider [phone] Allergies Active Allergy Reactions Criticality Noted Date [...] for fever (for temperature > 38.5). 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 Dermatochalasis of both upper eyelids 02/18/2021 Overview (02/18/2021): Added automatically from request for surgery [id number] Hypertension 02/18/2021 Overview (08/08/2022): Home amlodipine and [...] neuro-ophthalmology outpatient for visual field testing -30d air sampling and monitoring vs ILR at discharge given possible cardioembolic [...] (02/18/2021): Added automatically from request for surgery [id number] Lesion of left lower eyelid 02/17/2021 02/17/2021 [...] Type Department Care Team Description 02/13/2025 Telephone [facility] [address] [place] [id number] Merle Love, PharmD 01/22/2025 Telephone [facility] [address] [place] [address] Merle Love, PharmD from Last 3 Months Immunizations Immunization Administration [...] How often do you attend [facility] or moravian services? Patient unable to answer 11/14/2024 Do you belong to any clubs o r organizations such as restorationism groups, unions, fraternal or athletic groups, or [...] Recorded Patient Health Questionnaire-2 Score 0 02/01/2023 [facility] - Occupational Stress Questionnaire Answer Date Recorded [...] Done Comments [facility]-Medicare Annual Wellness (AWV) 1955 [facility]-Infant/Child/Adol SDOH Screenings 1955 [id number] Vaccine (#1) 1962 [facility]-DTaP,Tdap,and Td Vaccines (1 [...] this topic Medical Devices Implanted Type Area Site Worker Device Identifier Shelf Expiration Date Model / Serial / Lot Tubes Julee Oliva 0.6mm X 150mm - [id number] - [id number] Implanted:Qty: 1 on 02/23/2021 by Dereje Shoemaker MD at [facility] Implant Left: Eye [employer]-[id number] 11/18/2024 [id number] / [id number] / [id number] Screw 3.5mm Cortex Selftap 40mm - [id number] Implanted:Qty: 2 on 07/31/2022 by Pio Husain MD at [facility] Right: Hip Synthes [facility]-[id number] 07/31/2023 204.840 / / Chip Bone 20cc - [id number] - [id number] Implanted:Qty: 1 on 07/31/2022 by Pio Husain MD at [facility] Right: Hip HID [facility]-[id number] 05/27/2027 PCAN1/4 / [id number] / [id number] Screw 3.5mm Cortex Selftap 46mm - [id number] Implanted:Qty: 1 on 07/31/2022 by Pio Husain MD at [facility] Right: Hip [employer] [place]-[id number] 07/31/2023 204.846 / / Plate Plvc Rcn Low Pro 3.5mm 7 Holes - [id number] Implanted:Qty: 2 on 07/31/2022 by Pio Husain MD at [facility] Right: Hip [employer] [place]-[id number] 07/31/2023 245.027 / / Screw 3.5mm Cortex Selftap 26mm - [id number] Implanted:Qty: 1 on 07/31/2022 by Pio Husain MD at [facility] Right: Hip [employer] [place]-[id number] 07/31/2023 204.826 / / Screw 3.5mm Cortex Selftap 30mm - [id number] Implanted:Qty: 1 on 07/31/2022 by Pio Husain MD at [facility] Right: Hip [employer] [place]-[id number] 07/31/2023 204.830 / / Screw 3.5mm Cortex Selftap 34mm - [id number] Implanted:Qty: 1 on 07/31/2022 by Pio Husain MD at [facility] Right: Hip [employer] [place]-[id number] 07/31/2023 204.834 / / Screw 3.5mm Cortex Selftap 36mm - [id number] Implanted:Qty: 1 on 07/31/2022 by Pio Husain MD at [facility] Right: Hip [employer] [place]-[id number] 07/31/2023 204.836 / / Screw 3.5mm Cortex Selftap 38mm - [id number] Implanted:Qty: 1 on 07/31/2022 by Pio Husain MD at [facility] Right: Hip [employer] [place]-[id number] 07/31/2023 204.838 / / Procedures Procedure Name Priority Date/Time Associated Diagnosis Comments ACUTE HEPATITIS PANEL Routine 11/12/2024 6:48 PM EDT HEMOGLOBIN A1C Routine 11/12/2024 6:48 PM EDT from Last 3 Months or Most Recently Relevant to Health Maintenance Results * Acute Hepatitis Panel (11/12/2024 6:48 PM EDT) Hepatitis B Surf Antigen Negative Negative 11/12/2024 8:13 PM EDT [facility] Hepatitis C Antibody Negative Negative 11/12/2024 8:13 PM EDT [facility] Hepatitis A Antibody IgM Negative Negative 11/12/2024 8:13 PM EDT [facility] Hepatitis B Core Antibody IgM Negative Negative 11/12/2024 8:13 PM EDT [facility] Blood Venous blood specimen / Unknown Venipuncture / Unknown 11/12/2024 6:48 PM EDT 11/12/2024 7:06 PM EDT us Lucinda Chapin STARTING GATE [employer]IVER LAB BLOOD ORDERABLES Lenka l Result [facility] [address] [place] [address] * (ABNORMAL) Hemoglobin A1c (11/12/2024 6:48 PM EDT) Hemoglobin A1c 5.8(H) <5.7 % 11/12/2024 8:15 PM EDT [facility] Blood Venous blood specimen / Unknown Venipuncture / Unknown 11/12/2024 6:48 PM EDT 11/12/2024 7:04 PM EDT Narrative [facility] - 11/12/2024 8:15 PM EDT HA1C Interpretive Data: Diagnosis of Diabetes: Diabetic > or = 6.5% Pre-diabetic 5.7 to 6.4% Non-diabetic < or = 5.6% Glycemic Targets for Type I and Type II Diabetics: Non- Adults <7.0% Adults <6.0% Children and Adolescents <7.5% Source: [place] [employer]. Standards of medical care in diabetes,2017. Diabetes Care.2017:40 (suppl 1):S1-S135. Lucinda Chapin APRN LAB BLOOD ORDERABLES Lenka l Result [facility] [address] [place] [address] from Last 3 Months or Most Recently Relevant to Health Maintenance [place] [address] [address] [place] [address] MEDICARE Advance Directives * Full Code (Latest [...] Atkinson Son Next of Kin Care Teams Motor Vehicle Assembler Relationship Specialty Start Date End Date Yovany Walsh MD [id number] [place] [address] PCP - General 10/13/24 Carloz Day MD [address] [place] [address] Surgeon Otolaryngology 02/17/21 Willie Sargent MD [address] [place] [phone] Surgeon Otolaryngology 08/13/21
--- OUTSIDE RECORDS SUMMARY | 2025-03-29 08:56 | XMS_ITS | Encounter Summary ---
Author Organization [facility] Address [address] [place] [address] Care Team Providers Care Excelsior Machine Operator Name Role Phone Carloz Day MD Unavailable [phone] Willie Sargent MD Unavailable Yovany Walsh MD Primary Care Provider [phone] Encounter Details Date Type Department Care Team (Late st Contact Info) Description 02/13/2025 Telephone [facility] [address] [place] [address] Merle Love, PharmD Social History [...] answer 11/14/2024 How often do you attend [facility] or rastafari services? Patient unable to answer 11/14/2024 Do you belong to any clubs o r organizations such as hinduism groups, unions, fraternal or athletic groups, or [...] Questionnaire-2 Score 0 [facility] - Occupational Stress Questionnaire Answer Date [...] EDT Patient contacted by MTM team. Sent [employer] message. Pharmacy: [facility] Platform: Diagonal View Additional information: nothing Outcomes at this time, [...] documented as of this encounter Care Teams Excelsior Machine Operator Relationship Specialty Start Date End Date Yovany Walsh MD [facility] [address] [place] [address] PCP - General 10/13/24 Carloz Day MD [address] [place] [id number] Surgeon Otolaryngology 02/17/21 Willie Sargent MD [address] [place] [address] Surgeon Otolaryngology 08/13/21 documented as of this encounter
--- NOTE | 2025-03-29 09:00 | FL_ITS ---
FINAL REPORT CLINICAL HISTORY: Nausea, trouble swallowing after cancer treatments 400.62 mGy 2:14 FINDINGS: UPPER GI WITH SBFT UPPER GI EXAM HISTORY: Abdominal pain, nausea. PROCEDURE: The patient ingested barium. Effervescent crystals were also administered. Spot and overhead films were obtained. FINDINGS: The esophagus is normal. There is no hiatal hernia. There is no gastroesophageal reflux. Peristalsis is normal. There are prominent gastric and duodenal folds with evidence of duodenitis. Fluoroscopy time: 2 minutes 14 seconds Fluoro dose: 400.62 DAP in mGy IMPRESSION: prominent gastric and duodenal folds suggestive of gastritis and duodenitis. No evidence of gastric obstrruction SBFT: The zinc plate cutter film is normal. There is no evidence of obstruction. The mucosal fold pattern is normal. The terminal ilium is normal. IMPRESSION: Normal SBFT. Reviewed, Interpreted and Dictated by Tierney Stephenson MD Transcribed by MEREDITH Lam Authenticated and [facility]
[2025-03-29] MEDS: BARIUM SULFATE (E-Z-HD 340GM);135ML BOTTLE 135 ML PO (09:39)
[2025-03-29] MEDS: E-Z-GASII EFFERVESCENT GRANULES;1PK 1 EACH PO (09:39)
[2025-03-29] MEDS: DIATRIZOATE MEGLUMINE(GASTROGRAFIN) 66%-10% 120ML 20 ML PO (09:39)
[2025-03-29] MEDS: BARIUM SULFATE(LIQUID E-Z-PAQUE);355ML BOTTLE 355 ML PO (09:39)
== END 2025-03-29 23:59 | disposition home or self-care (01) ==
LOC: RAD 08:54
PROVIDERS: PCP Internal Medicine; Visit Provider Surgery
DX: K21.9 Gastro-esophageal reflux disease without esophagitis (principal); R93.3 Abnormal findings on diagnostic imaging of other parts of digestive tract; R11.0 Nausea
CPT/HCPCS: 74246; 74248; Q9963